=== PATIENT | male | born 1940 | race Caucasian/White ===

== ENCOUNTER 2019-02-07 10:11 | Outpatient (CLI) | payer MEDICARE, SELFPAY ==
--- NOTE | 2019-02-07 10:19 | USCV_ITS ---
Thong Salgado Age: 79 Gender: M : 1940 Exam Date: 02/07/2019 10:38 Ordering Phys: Destin Chung MD Technologist: Soo Serrano Exam Location: [facility] [place]_ Indication: Mild aortic stenosis BP: 132 / 90 HR: 55 Rhythm: Technical Quality: Fair MEASUREMENTS (Male / Female) Normal Values 2D ECHO LV Diastolic Diameter PLAX 5.0 cm 4.2 - 5.9 / 3.9 - 5.3 cm LV Systolic Diameter PLAX 4.6 cm LV Chamber Size 5.6 cm IVS Diastolic Thickness 1.8 cm 0.6 - 1.0 / 0.6 - 0.9 cm IVS Systolic Thickness 1.6 cm LVPW Diastolic Thickness 1.1 cm 0.6 - 1.0 / 0.6 - 0.9 cm LVPW Systolic Thickness 1.7 cm RV Chamber Size 4.2 cm LVOT Diameter 2.0 cm LV Ejection Fraction 2D Teich 18.4 % LV Ejection Fraction MOD 2C 32.1 % LV Ejection Fraction 2C AL 32.5 % LA Diameter 3.9 cm LA Width 4.5 cm LA Height 6.7 cm RA Width 4.3 cm RA Height 5.4 cm Aorta at Sinotubular Diameter 2.5 cm M-MODE LV Diastolic Diameter MM 6.6 cm 4.2 - 5.9 / 3.9 - 5.3 cm LV Systolic Diameter MM 5.2 cm LV Ejection Fraction MM Teich 42.1 % IVS Diastolic Thickness MM 1.4 cm 0.6 - 1.0 / 0.6 - 0.9 cm IVS Systolic Thickness MM 1.7 cm LVPW Diastolic Thickness MM 1.5 cm 0.6 - 1.0 / 0.6 - 0.9 cm LVPW Systolic Thickness MM 1.7 cm Aortic Annulus Diameter 4.2 cm LA Ao Ratio MM 0.9 MV E Point Septal Separation 1.1 cm DOPPLER AV Peak Velocity 334.0 cm/s LVOT Peak Velocity 77.0 cm/s AV Area Cont Eq vti 0.8 cm squared AV Area Cont Eq pk 0.8 cm squared MV Area PHT 3.7 cm squared MV E' Velocity 10.0 cm/s Mitral E to MV E' Ratio 12.8 Mitral E to LV E' Lateral Ratio 9.7 Mitral E to LV E' Septal Ratio 19.2 TR Peak Velocity 236.0 cm/s TR Peak Gradient 22.2 mmHg TR Mean Velocity 235.8 cm/s TR Mean Gradient 23.4 mmHg TR Velocity Time Integral 86.5 cm TV Peak E Velocity 53.0 cm/s Right Atrial Pressure 8.0 mmHg Pulmonary Artery Systolic Pressu 30.3 mmHg PV Peak Velocity 52.0 cm/s RV Acceleration Time 0.1 s RV Ejection Time 0.2 s RV AcT/ET 0.4 FINDINGS Left Ventricle Mildly increased left ventricular cavity size. Severely decreased left ventricular systolic function. Left ventricular ejection fraction is estimated at 35 %. Global left ventricular hypokinesis. Grade II/IV diastolic dysfunction, moderately elevated filling pressures. Right Ventricle The right ventricle is normal in size and function. Right Atrium The right atrium is normal in size. Left Atrium The left atrium is normal in size. Mitral Valve Moderately thickened mitral valve. Moderate mitral annular calcification. No mitral valve stenosis. Moderate mitral valve regurgitation. Aortic Valve Severe aortic valve calcification. Severe aortic valve stenosis, mean gradient 25.2 mmHg, STEPHAN 0.76 cm squared. No aortic valve regurgitation. Possible low pressure Aortic stenosis. Tricuspid Valve Mild tricuspid valve regurgitation. Pulmonic Valve Mild pulmonary valve regurgitation. Pericardium Normal pericardium without effusion. Aorta Normal ascending aorta dimension. CONCLUSIONS 1-Mildly increased left ventricular cavity size. Severely decreased left ventricular systolic function. Left ventricular ejection fraction is estimated at 35 %. Global left ventricular hypokinesis. Grade II/IV diastolic dysfunction, moderately elevated filling pressures. 2-Moderately thickened mitral valve. Moderate mitral annular calcification. No mitral valve stenosis. Moderate mitral valve regurgitation. 3-Severe aortic valve calcification. Severe aortic valve stenosis, mean gradient 25.2 mmHg, STEPHAN 0.76 cm squared. No aortic valve regurgitation. Possible low pressure Aortic stenosis. 4-Mild pulmonary valve regurgitation. 5-There is no pericardial effusion. 6-Pulmonary artery systolic pressure is within normal limits. 7- When compared to the prior echocardiogram dated 09/19/2017 left ventricle ejection fraction has reduced from moderately depressed 46% to severely depressed 35% now. Aortic stenosis has worsened from moderately stenotic with calculated aortic valve area 1.45 cm2 and mean gradient of 14 mmHg to severely stenotic with calculated aortic valve area of 0.76 cm2 and mean gradient of 25 mmHg now. Jakub Olvera MD (Electronically Signed) Final Date: 07 February 2019 13:42 S
== END 2019-02-07 10:12 | disposition home or self-care (01) ==
LOC: RAD 10:14
PROVIDERS: Family Provider Family Medicine; PCP Family Medicine; Visit Provider Family Medicine
DX: I05.9 Rheumatic mitral valve disease, unspecified (principal); I35.0 Nonrheumatic aortic (valve) stenosis; I37.1 Nonrheumatic pulmonary valve insufficiency
CPT/HCPCS: 93306

== ENCOUNTER 2019-02-13 13:45 | Inpatient (IN) | payer MEDICARE, SELFPAY ==
--- NOTE | 2019-02-13 14:18 | ECG_ITS ---
Measurements Intervals [place] Rate: 81 P: 261 MO: 121 QRS: 252 QRSD: 186 T: 82 QT: 426 QTc: 496 ELECTRONIC VENTRICULAR PACEMAKER ABNORMAL RHYTHM ECG No previous ECG available for comparison Electronically Signed On 02-13-2019 15:40:16 [employer] by Gabe Martin M.D. [email or web address]
--- NOTE | 2019-02-13 14:18 | XRR_ITS ---
PROCEDURE INFORMATION: Exam: XR Chest, 2 Views Exam date and time: 02/13/2019 3:01 PM Age: 79 years old Clinical indication: Condition or disease; Other: Chf; Prior surgery; Surgery date: 6+ months; Surgery type: Pacemaker, bypass date not given; Patient HX: Difficulty breathing x 2 months TECHNIQUE: Imaging protocol: XR of the chest Views: 2 views. COMPARISON: [facility] Chest 2 views 12/18/2018 8:11 AM FINDINGS: Lungs: Unremarkable. No consolidation. Pleural space: Left lower lobe small pleural effusion. No pneumothorax. Heart/Mediastinum: Unremarkable. No cardiomegaly. Bones/joints: Metallic sternotomy wires are in place. Cardiac pacemaker left anterior chest. XR/XR chest 2V* [id number] IMPRESSION: No acute findings. Metallic sternotomy wires are in place. Cardiac pacemaker left anterior chest. Small left lower lobe pleural effusion
[2019-02-13 14:35] VITALS: BMI 27.8
[2019-02-13 14:50] LABS: Basophils % 0.8 %; Eosinophils # 0.1 10^3/uL (0.0-0.8); Hematocrit 39.2 % (42.0-52.0); Hemoglobin 12.8 g/dL (11.7-16.6); Lymphocytes % 20.4 %; Mean Corpuscular HGB Conc 32.7 g/dL (30.0-36.0); Mean Corpuscular Hemoglobin 29.6 pg (28.0-34.0); Mean Corpuscular Volume 90.5 fL (80-94); Mean Platelet Volume 9.6 fL (7.4-10.4); Monocytes # 0.5 10^3/uL (0.2-0.9); Neutrophils # 3.4 10^3/uL (1.8-7.7); Neutrophils % 66.6 %; Nucleated Red Blood Cells % 0 %; Platelet Count 275 10^3/cmm (130-400); Red Blood Count 4.33 10^6/uL (4.1-5.3); Red Cell Distribution Width 12.8 % (12.1-15.1); White Blood Count 5.1 10^3/uL (4.0-10.0)
[2019-02-13 14:58] LABS: INR 1.17 (0.8-1.2)
[2019-02-13 14:59] LABS: Partial Thromboplastin Time 32.9 SECONDS (23.9-36.7)
[2019-02-13 15:04] LABS: Chol HDL Ratio 4.23 mg/dL (1.0-5.00); Cholesterol 93 mg/dL (0-200); HDL Cholesterol 22 mg/dL (60-100); LDL Cholesterol Calculated 55 mg/dL (50-129); Triglycerides 78 mg/dL (0-150)
[2019-02-13 15:14] LABS: Alanine Aminotransferase 38 U/L (0-41); Albumin Level 4.2 g/dL (3.5-5.2); Alkaline Phosphatase 87 IU/L (40-130); Anion Gap 15.1 (5-19); Aspartate Amino Transferase 27 U/L (0-40); Blood Urea Nitrogen 12 mg/dL (8-23); Calcium 9.4 mg/Dl (8.8-10.2); Carbon Dioxide 25 mmol/L (22-29); Chloride 105 mmol/L (98-107); Globulin 2.8 g/dL (1.3-4.6); Glucose 140 mg/dL (74-106); NT Pro B Type Natriuretic Pept 2346 pg/mL (0-450); Potassium 4.1 mmol/L (3.5-5.1); Sodium 141 mmol/L (136-145); Total Bilirubin 0.3 mg/dL (0.15-1.2)
[2019-02-13 16:00] VITALS: BP 139/92; RESP 20; TEMP 36.6; O2SAT 98
[2019-02-13] MEDS: docusate sodium 100 mg Capsule PO (17:34)
[2019-02-13] MEDS: FUROsemide 10 mg/mL SDV 4mL 40 MG IVP (17:34)
[2019-02-13] MEDS: enoxaparin 40 mg/0.4 mL Syringe SUBCUT (17:34)
[2019-02-13 17:50] LABS: Add Urine Microscopic? NO
--- NOTE | 2019-02-13 18:13 | P.HP_ITS ---
Providers/Chief Complaint Admitting Physician: Hamzah Montes Primary Care Provider: Destin Chung MD Chief Complaint: CHF History of Present Illness Thong Salgado JR is a 79 year old male with a history of coronary artery disease, coronary artery bypass surgery, aortic valve stenosis and cardiomyopathy, presenting with increasing shortness of breath, chest tightness and leg swelling. [facility] to [facility] today with these complaints. He has been having the symptoms for the last 1 month. His shortness of breath is progressively getting worse. Patient also has been having chest tightness/heaviness with activities. The intensity of the symptoms are moderate to severe. He was finding it difficult to lie flat in the bed. He had to wake up several times in the middle of the night with shortness of breath. He denies any fever or chills. His functional status has significantly deteriorated over the last 1 month. Review of Systems Const: Reports: fatigue; Denies: fever or chills Eyes: Denies: change in vision or blurry vision ENMT: Denies: throat pain or enlarged tonsils Card: Reports: chest pain (Complaints of chest tightness.), edema, swelling of feet/ankles, lightheadedness (Occasional) and shortness of breath when lying down; Denies: palpitations Resp: Reports: shortness of breath; Denies: non-productive cough GI: Denies: abdominal pain, nausea or vomiting : Denies: flank pain or difficulty urinating Musc: Reports: back pain and joint pain; Denies: neck pain Skin/Breast: Denies: rash or itching Neuro: Reports: headache; Denies: numbness in extremities or weakness in extremities Psych: Reports: anxiety; Denies: depression or mood swings Endo: Reports: tired all the time; Denies: excessive urination, excessive thirst or excessive sweating David/Lymph: Denies: easy bruising or easy bleeding All/Imm: Denies: hives, throat swelling, tongue swelling or acute wheezing Medications/Allergies Home Medications Medication Instructions Recorded Confirmed Last Taken Type ascorbic acid (vitamin C) [Vitamin 500 mg PO DAILY 02/13/19 02/13/19 02/13/19 08:00 History C] potassium chloride 10 meq PO BID 02/13/19 02/13/19 02/13/19 08:00 History Allergies Allergy/AdvReac Type Severity Reaction Status Date / Time ciprofloxacin Allergy Unknown unknown Verified 02/13/19 09:54 Penicillins Allergy Unknown unknown Verified 02/13/19 09:53 PFSH Acute PFSH: Statuses (acute, chronic, etc) shown below reflect problem list status as previously entered and may not be historically accurate Medical History (Updated 02/13/19 @ 19:01 by Hamzah Montes MD) Aortic valvar stenosis (Acute) Cardiac arrhythmia (Acute) Cardiomyopathy (Acute) Cataract (Acute) Congestive heart failure (Acute) Coronary arteriosclerosis after coronary artery bypass grafting (Acute) Myocardial perfusion imaging in 2017 revealed 1. Myocardial perfusion imaging revealed small to moderate area of persistent decreased tracer uptake in the basal, mid and apical inferior wall region, with no significant reversibility. The elevated TID ratio may suggest endocardial ischemia. However the positive predictive value this finding is limited. 2. Left ventricular wall motion analysis revealed diffuse hypokinesia of the left ventricle with a dyskinetic apex 3. Left ventricular ejection fraction was estimated to be 32,%. 4. Left ventricular volume was elevated , 112 mL Possibly No significant coronary ischemia, based on the above findings Compared to the previous study on 06/11/2013 there may not be a significant change except for the worsening of the LV systolic function and the elevated TID ratio Essential hypertension (Acute) Mixed hyperlipidemia (Acute) Pacemaker (Acute) Thoracic aneurysm without mention of rupture (Acute) Surgical History H/O foot surgery (Acute) Hx of appendectomy (Acute) Hx of CABG (Acute) Social History Smoking and tobacco status: never smoked Alcohol intake: never Household members: significant other Vitals/I&O/Wt Last Vital Signs Temp 97.9 F 02/13/19 16:00 Resp 20 H 02/13/19 16:00 BP 139/92 02/13/19 16:00 Pulse Ox 98 02/13/19 16:00 02/13/19 02/13/19 02/13/19 06:59 14:59 22:59 Intake Total 480 / 480 Output Total 120 / 120 Balance 360 / 360 Weight last 48 hrs Weight 199 lb 5 oz Weight 199 lb 8 oz Physical Exam Const: COMMON NORMALS: oriented x3 and alert GENERAL APPEARANCE: cooperative, well developed, well hydrated and other (Patient is somewhat tachypneic. Has significant shortness of breath with minimal activities.); not in distress HENMT: MOUTH: lip normal; no other (ulcers or bleeding) TEETH & GINGIVA: no other (bleeding observed and inflammation present) Eye: COMMON NORMALS: conjunctivae normal CONJUNCTIVA: Yes conjunctivae normal SCLERA: sclerae normal Neck/C-Spine: COMMON NORMALS: thyroid normal GENERAL: Yes JVD (JVD 4 cm above the angle of Song.) THYROID: thyroid normal CAROTIDS: Yes normal carotid upstroke (and runoff) Chest: COMMONS NORMALS: inspection of chest normal Resp: COMMON NORMALS: clear to auscultation bilaterally EFFORT & INSPECTION: Yes symmetric chest movement and No uses accessory muscles AUSCULTATION: crackles (Fine crackles bilaterally at the bases) and no wheezes Cardio: COMMON NORMALS: regular rate and regular rhythm PALPATION: no heave, no palpable S3 and no thrill RATE: regular rate RHYTHM: regular rhythm HEART SOUNDS: S1 abnormal (The first heart sound is soft) and murmur (Ejection systolic murmur grade 4/6 in the aortic area with no diastolic murmurs. No pericardial rub) BRUITS: no abdominal aortic bruits PERIPHERAL PULSES: femoral pulses present positive bilateral (Normal), posterior tibial pulses present positive bilateral (Normal) and dorsalis pedis pulses present positive bilateral (Normal) GI: AUSCULTATION: Yes normoactive bowel sounds and No abdominal bruit PALPATION: No tender, No hepatomegaly, No splenomegaly and No mass Back/Pelvis: GENERAL BACK: No swelling and No other (joint deformities) THORACIC SPINE/UPPER BACK: No kyphosis present LUMBAR SPINE/LOWER BACK: No lumbar scoliosis present Extremity: COMMON NORMALS: negative for no clubbing, cyanosis or edema and negative for no pedal edema NARRATIVE EXTREMITY EXAM: Patient has bilateral pitting edema of 1-2+. No evidence of cyanosis. GENERAL: No cyanosis Neuro: COMMON NORMALS: oriented x3; negative for no focal motor deficits SENSORIUM/ORIENTATION: Yes alert MOTOR EXAM: No tremor Psych: MOOD & AFFECT: Yes other (Normal mood and affect) Skin: COMMON NORMALS: skin turgor normal; negative for no petechiae GENERAL SKIN EXAM: turgor normal, skin not dry and no erythema RASHES: rash noted NAILS: normal, no clubbing, not discolored and no other (cyanosis) Data Labs: Other Labs: Laboratory Tests 02/13/19 02/13/19 02/13/19 14:38 14:38 14:38 Hgb 12.8 NT-Pro-B Natriuret Pep 2346 H Total Protein 7.0 Albumin 4.2 Globulin 2.8 Triglycerides 78 Cholesterol 93 LDL Cholesterol, C alc 55 LDL/HDL Ratio 2.50 Cholesterol/HDL Ra janeth 4.23 Imaging^: CXR: My impression: The chest x-ray revealed borderline cardiac silhouette with no lung infiltrate. Pulmonary venous congestion present. Minimal left-sided pleural effusion. EKG^: The EKG revealed 100% V paced rhythm: My Interpretation: The EKG showed 100% V paced rhythm. Further interpretation is not possible. A&P Assessment and plan (1) Congestive heart failure: Patient has clinical features of biventricular failure. His left ventricular ejection fraction was around 35% by echocardiogram. There is a significant drop in the LV ejection fraction from the previous study. He also w as found to have severe aortic valve stenosis, low gradient. The etiology of the drop in the LV ejection fraction is not clear at this time. Possibility of underlying coronary ischemia causing this is a consideration. This needs to be further evaluated. He will be carefully treated with IV diuretics and other symptomatic measures. Status: Acute Code(s): I50.9 - Heart failure, unspecified (2) Coronary arteriosclerosis after coronary artery bypass grafting: Patient is known to have coronary artery disease and had two-vessel coronary artery bypass surgery and 2008. He had a OLSON to the LAD and a venous graft to the obtuse marginal artery. The last coronary angiogram in 2013 revealed patent OLSON to the LAD and venous graft to the obtuse marginal artery. He had high-grade lesion in the distal left main and ostium of the circumflex artery. He had a moderate disease in the mid LAD. The LV ejection fraction was 45% at that time. Because of the significant drop in the LV ejection fraction, he requires a repeat angiogram, to reevaluate the coronary arteries. Patient has been having episodes of chest tightness/heaviness with the shortness of breath. His myocardial perfusion imaging, in 2017 revealed elevated transient ischemic dilatation index. The findings are as follows Status: Acute Code(s): I25.810 - Atherosclerosis of coronary artery bypass graft(s) without angina pectoris (3) Cardiomyopathy: Patient has significant drop in the LV ejection fraction from 45% to 35% by the recent echocardiogram. Possibility of underlying coronary ischemia causing this is a consideration. Patient also has low gradient severe aortic valve stenosis which could be a contributing factor as well He may benefit from a cardiac authorization, to further evaluate the etiology of the LV dysfunction. Status: Acute Qualifiers: Cardiomyopathy type: ischemic Qualified Code(s): I25.5 - Ischemic cardiomyopathy Code(s): I42.9 - Cardiomyopathy, unspecified (4) Aortic valvar stenosis: Patient had an aortic valve area of 0.76 by echocardiogram. He has a low- grade severe aortic valve stenosis. After the coronary angiogram, he may require further evaluation of the valve. 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 His last pacemaker interrogation was unremarkable Status: Acute Code(s): Z95.0 - Presence of cardiac pacemaker (6) Mixed hyperlipidemia: We will continue on the current medications. Status: Acute Code(s): E78.2 - Mixed hyperlipidemia (7) Essential hypertension: Patient is currently normotensive. We will continue on the current medications. Status: Acute Code(s): I10 - Essential (primary) hypertension Attestations Medical Necessity Statement*: Patient requires at least 2 midnight stay for further evaluation and management of his condition Coding Level of Care Code Acute Telecom Sales Consultant for [facility] Fwd Exam Problem Focused Diagnoses Congestive heart failure I50.9 Coronary arteriosclerosis after coronary artery bypass grafting I25.810 Cardiomyopathy I25.5 Cardiomyopathy type: ischemic Aortic valvar stenosis I35.0 Pacemaker Z95.0 Mixed hyperlipidemia E78.2 Essential hypertension I10
[2019-02-13 20:00] VITALS: BP 122/76; RESP 30; TEMP 36.6; O2SAT 92
[2019-02-13 21:15] LABS: Bilirubin Urine Neg (NEGATIVE); Blood Urine Neg (Negative); Glucose Urine UA Norm (Normal); Ketones Urine Negative (Negative); Leukocyte Esterase Urine Negative (Negative); Nitrate Urine Negative (Negative); Protein Urine Neg (Negative); Specific Gravity, Urine 1.005 (1.005-1.030); Urine Appearance Clear (CLEAR); Urine Color Yellow (Yellow); Urobilinogen Urine 1 mg/dL (Negative); pH Urine 7 (5-7)
[2019-02-13] MEDS: sodium chloride 0.9% 1,000 ML 50 ML IV (22:06)
[2019-02-13] MEDS: aspirin 81 mg EC Tablet PO (22:07)
[2019-02-14] VITALS (9 sets, daily range): BP systolic 104–133; BP diastolic 73–96; PULSE 70–84; RESP 18–25; TEMP 36.6–37; O2SAT 93–96
--- NOTE | 2019-02-14 01:07 | PC.NURSE ---
Patient in agreement to switch rooms from room 106 to 111-2, belongings placed in patient's closet in room. Call light within reach. Care continued.
[2019-02-14] MEDS: FUROsemide 10 mg/mL SDV 4mL 40 MG IVP ×3 (02:34→17:41)
[2019-02-14] MEDS: morphine 4 mg/mL SDV 1 mL 2 MG IV (02:35)
[2019-02-14 05:36] LABS: Anion Gap 16.9 (5-19); Blood Urea Nitrogen 13 mg/dL (8-23); Carbon Dioxide 26 mmol/L (22-29); Chloride 102 mmol/L (98-107); Glucose 134 mg/dL (74-106); Potassium 3.9 mmol/L (3.5-5.1); Sodium 141 mmol/L (136-145)
[2019-02-14] MEDS: omega-3 fatty acids 1,000 mg Capsule 1000 MG PO ×2 (08:50→17:41)
[2019-02-14] MEDS: atorvastatin 40 mg Tablet 20 MG PO (08:50)
[2019-02-14] MEDS: metoprolol tartrate 50 mg Tablet PO ×2 (08:50→17:40)
[2019-02-14] MEDS: losartan 50 mg Tablet PO (08:51)
[2019-02-14] MEDS: ascorbic acid 500 mg Tablet PO (08:51)
[2019-02-14] MEDS: docusate sodium 100 mg Capsule PO ×2 (08:51→17:40)
[2019-02-14] MEDS: multivitamin therapeutic Tablet 1 TAB PO (08:51)
[2019-02-14] MEDS: ferrous gluconate 324 mg Tablet PO (08:52)
--- NOTE | 2019-02-14 09:26 | P.PN_ITS ---
Subjective Subjective: Interval history: Patient is feeling much better since the hospital admission. He was able to lie flat in the bed last night. His shortness of breath is significantly improved. He continues to urinate. Denies any leg cramps. No chest pain. No fever or chills. No cough. Vitals/I&O/Wt Last Vital Signs Temp 98.3 F 02/14/19 04:00 Pulse 70 02/14/19 08:59 Resp 19 H 02/14/19 07:44 BP 133/96 02/14/19 08:51 Pulse Ox 96 02/14/19 08:59 02/13/19 02/14/19 02/14/19 22:59 06:59 14:59 Intake Total 480 / 480 100 / 580 240 / 240 Output Total 120 / 120 2650 / 2770 400 / 400 Balance 360 / 360 -2550 / -2190 -160 / -160 Weight last 48 hrs Weight 193 lb 12.8 oz Weight 199 lb 5 oz Weight 199 lb 8 oz Physical Exam Const: COMMON NORMALS: oriented x3 and alert GENERAL APPEARANCE: cooperative, well developed, well hydrated and other (Patient is somewhat tachypneic. Has significant shortness of breath with minimal activities.); not in distress HENMT: MOUTH: lip normal; no other (ulcers or bleeding) TEETH & GINGIVA: no other (bleeding observed and inflammation present) Eye: COMMON NORMALS: conjunctivae normal CONJUNCTIVA: Yes conjunctivae normal SCLERA: sclerae normal Neck/C-Spine: COMMON NORMALS: thyroid normal GENERAL: No JVD (JVD 4 cm above the angle of Song.) THYROID: thyroid normal CAROTIDS: Yes normal carotid upstroke (and runoff) Chest: COMMONS NORMALS: inspection of chest normal Resp: EFFORT & INSPECTION: Yes symmetric chest movement and No uses accessory muscles AUSCULTATION: crackles (Fine crackles bilaterally at the bases) and no wheezes Cardio: COMMON NORMALS: regular rate and regular rhythm; negative for S1 normal heart sound (The first heart sound is soft) PALPATION: no heave, no palpable S3 and no thrill RATE: regular rate RHYTHM: regular rhythm HEART SOUNDS: S1 abnormal (The first heart sound is soft) and murmur (Ejection systolic murmur grade 4/6 in the aortic area with no diastolic murmurs. No pericardial rub) BRUITS: no abdominal aortic bruits PERIPHERAL PULSES: femoral pulses present positive bilateral (Normal), posterior tibial pulses present positive bilateral (Normal) and dorsalis pedis pulses present positive bilateral (Normal) GI: AUSCULTATION: Yes normoactive bowel sounds and No abdominal bruit PALPATION: No tender, No hepatomegaly, No splenomegaly and No mass Back/Pelvis: GENERAL BACK: No swelling and No other (joint deformities) THORACIC SPINE/UPPER BACK: No kyphosis present LUMBAR SPINE/LOWER BACK: No lumbar scoliosis present Extremity: COMMON NORMALS: negative for no clubbing, cyanosis or edema and negative for no pedal edema NARRATIVE EXTREMITY EXAM: Patient has bilateral pitting edema of 1-2+. No evidence of cyanosis. GENERAL: No cyanosis Neuro: COMMON NORMALS: oriented x3; negative for no focal motor deficits SENSORIUM/ORIENTATION: Yes alert MOTOR EXAM: No tremor Psych: MOOD & AFFECT: Yes other (Normal mood and affect) Skin: COMMON NORMALS: skin turgor normal; negative for no petechiae GENERAL SKIN EXAM: turgor normal, skin not dry and no erythema RASHES: rash noted NAILS: normal, no clubbing, not discolored and no other (cyanosis) A&P Assessment and plan (1) Congestive heart failure: Patient has clinical features of biventricular failure. His left ventricular ejection fraction was around 35% by echocardiogram. There is a significant drop in the LV ejection fraction from the previous study. He also was found to have severe aortic valve stenosis, low gradient. The etiology of the drop in the LV ejection fraction is not clear at this time. Possibility of underlying coronary ischemia causing this is a consideration. This needs to be further evaluated. He will be carefully treated with IV diuretics and other symptomatic measures. We will continue IV the Lasix still tomorrow morning. We will do a repeat BMP in the morning as well Status: Acute Code(s): I50.9 - Heart failure, unspecified (2) Coronary arteriosclerosis after coronary artery bypass grafting: Patient is known to have coronary artery disease and had two-vessel coronary artery bypass surgery and 2008. He had a OLSON to the LAD and a venous graft to the obtuse marginal artery. The last coronary angiogram in 2013 revealed patent OLSON to the LAD and venous graft to the obtuse marginal artery. He had high-grade lesion in the distal left main and ostium of the circumflex artery. He had a moderate disease in the mid LAD. The LV ejection fraction was 45% at that time. Because of the significant drop in the LV ejection fraction, he requires a repeat angiogram, to reevaluate the coronary arteries. Patient has been having episodes of chest tightness/heaviness with the shortness of breath. His myocardial perfusion imaging, in 2017 revealed elevated transient ischemic dilatation index. The findings are as follows Patient is scheduled for a cardiac arrest for tomorrow afternoon. Based on the angiogram findings, further management decisions will be made The risk of bleeding, hematoma, vascular injury, myocardial infarction, CVA, renal failure and other concomitant complications were explained in detail. Patient understood this well and consented to proceed Status: Acute Code(s): I25.810 - Atherosclerosis of coronary artery bypass graft(s) without angina pectoris (3) Cardiomyopathy: Patient has significant drop in the LV ejection fraction from 45% to 35% by the recent echocardiogram. Possibility of underlying coronary ischemia causing this is a consideration. Patient also has low gradient severe aortic valve stenosis which could be a contributing factor as well He may benefit from a cardiac catheterization, to further evaluate the etiology of the LV dysfunction. As above Status: Acute Qualifiers: Cardiomyopathy type: ischemic Qualified Code(s): I25.5 - Ischemic card iomyopathy Code(s): I42.9 - Cardiomyopathy, unspecified (4) Aortic valvar stenosis: Patient had an aortic valve area of 0.76 by echocardiogram. He has a low- grade severe aortic valve stenosis. After the coronary angiogram, he may require further evaluation of the valve. 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 His last pacemaker interrogation was unremarkable Status: Acute Code(s): Z95.0 - Presence of cardiac pacemaker (6) Mixed hyperlipidemia: We will continue on the current medications. Status: Acute Code(s): E78.2 - Mixed hyperlipidemia (7) Essential hypertension: Patient is currently normotensive. We will continue on the current medications. Status: Acute Code(s): I10 - Essential (primary) hypertension Attestations Medical Necessity Statement*: Patient requires continued hospital stay, for further evaluation and close monitoring. Coding Level of Care Code Acute [facility] for [facility] Fwd Exam Problem Focused Diagnoses Congestive heart failure I50.9 Coronary arteriosclerosis after coronary artery bypass grafting I25.810 Cardiomyopathy I25.5 Cardiomyopathy type: ischemic Aortic valvar stenosis I35.0 Pacemaker Z95.0 Mixed hyperlipidemia E78.2 Essential hypertension I10
[2019-02-14 11:57] LABS: Glucose Point of Care 120 mg/dL (70-110)
[2019-02-14] MEDS: enoxaparin 40 mg/0.4 mL Syringe SUBCUT (15:00)
[2019-02-14 17:13] LABS: Glucose Point of Care 106 mg/dL (70-110)
[2019-02-14 21:13] LABS: Glucose Point of Care 138 mg/dL (70-110)
[2019-02-14] MEDS: aspirin 81 mg EC Tablet PO (21:15)
--- NOTE | 2019-02-14 23:23 | PC.NURSE ---
Patient very anxious/nervous about angiogram that is scheduled for tomorrow. After listening to his concerns, patient states, you know what.....I'm not going to worry about it until we are done tomorrow and find out what they say. Will monitor.
[2019-02-15] VITALS (11 sets, daily range): BP systolic 101–125; BP diastolic 65–86; PULSE 80–83; RESP 17–27; TEMP 36.5–36.9; O2SAT 93–98
--- NOTE | 2019-02-15 | XACV_ITS ---
Exam Room: [facility] Ht: 180 cm Wt: 90 kg BSA: 2.14 m2 Gender: Male : 1940 Any Known Allergies: Other Exam Priority: Routine Procedure(s): Procedure Description: Diagnostic procedure Procedure Description: Left ventriculography Procedure Description: Venous Graft Catheterization Procedure Description: OLSON Graft Catheterization Procedure Description: Coronary Angiography Diagnostic Cath Status: Elective Diagnostic Findings No significant disease noted in the Left Main, LAD, Circumflex, or RCA coronary arteries. Coronary angiography shows right dominance. The left main is a medium caliber vessel which was found to have a high-grade 90% stenosis at the distal segment, involving the ostium of the left artery descending artery and left circumflex artery. The left and descending artery is a medium caliber vessel which was found to have around 50% lesion in the mid segment. The first diagonal branch artery was found to have 60 to 70% ostial lesion. The mid segment of the artery was found to have mild diffuse disease. Competitive blood flow was noted in the distal LAD. The second diagonal branch was found to have mild diffuse disease. The first septal shape carver is a medium caliber vessel with no significant stenotic lesions. The left circumflex artery is a medium caliber vessel which gives off a high obtuse marginal branch. The ostium of the circumflex artery was found to have high-grade stenosis. At the takeoff of the first obtuse marginal artery, there is high-grade lesion in the circumflex artery, involving the ostium of the first obtuse marginal branch. The second obtuse marginal branch is relatively small caliber vessel with mild diffuse disease. The distal circumflex artery gives off a large recurrent atrial branch with no significant stenotic lesions. Competitive blood flow was noted in the high obtuse marginal branch. The right coronary artery is a relatively large caliber vessel which was found to be ectatic in the proximal and mid segment. There is an eccentric narrowing of around 50 to 60% in the proximal artery with haziness suggestive of possible thrombus. Diffuse calcification was noted in this segment of the artery. The PDA and the PLV branches are found to have mild diffuse disease. The saphenous venous graft to the obtuse marginal branch(high OM) was found to be widely patent. Just proximal to the distal anastomosis, there was a 70% lesion in the first obtuse marginal artery. No significant stenotic lesions were noted distal to the anastomosis. PCI Status: Elective Conclusions This is a 79-year-old white male with history of coronary disease, status post two-vessel coronary bypass surgery in 2008, presented with progressive shortness of breath and weakness. He was found to have features of congestive heart failure and possibly severe, low gradient aortic valve stenosis. His LV ejection fraction has decreased from the previous study from 45 to 35%. In view of the patient's the new onset of heart failure, significant decrease in the LV ejection fraction and the development of severe aortic valve stenosis, for further evaluation of his coronary status, a cardiac catheterization was recommended. Patient underwent left heart catheterization with a left and right coronary angiogram and graft angiogram today. He was found to have severe distal left main disease involving the ostium of the left and descending artery and circumflex artery. The OLSON to the LAD was found to be patent. The saphenous venous graft to the obtuse marginal artery also was found to be patent. Proximal to the distal anastomosis of the obtuse marginal graft, there was a high-grade lesion, possibly causing compromised blood flow in the circumflex artery territory. Moderate eccentric disease in the right coronary artery with a possible thrombus moderate diffuse calcification also was noted in the right coronary artery. Mild to moderate diffuse disease was noted in the other vessels. The LVEDP was 7 mmHg and the mean gradient across the aortic valve was found to be 27 millimeters of mercury. Recommendations We will optimize the medical treatment. We also may consider a myocardial perfusion imaging, to evaluate for the functional significance of the circumflex artery and the right coronary artery lesions. After reviewing the results of these tests, further recommendations will be made. The angiogram findings were reviewed and discussed with Dr. Olvera who agreed with this plan. Diagnostic RX Recommendation: medical therapy and/or counseling LV EDP: 7 mmHg Left Ventriculography Findings: The aortic valve was crossed with a pigtail catheter. The mean gradient across aortic valve was 27 mmHg-using the single lumen catheter . THE LVEDP was 10 mmHg. LV gram was not performed because of the concern about the dye overload. Pressures Phase:Rest AO : 66 mmHg / 47 mmHg ( 56 mmHg ) @ 8:12:00 AM 95 mmHg / 39 mmHg ( 65 mmHg ) @ 8:31:00 AM 95 mmHg / 39 mmHg ( 63 mmHg ) @ 8:31:00 AM LV : 124 mmHg / -4 mmHg / @ 8:30:00 AM 122 mmHg / -4 mmHg / @ 8:31:00 AM Valves Phase:DefaultPhase AV : 26.0 mmHg @ 2:50:56 PM AV Mean Gradient: 27.0 mmHg @ 2:50:56 PM Clinical Evaluation EBL: 5mL-10mL Procedural Details Due to computer glitch, some notes will be out of order. Correct Patient: Yes; Correct Procedure: Yes; Correct Site: Yes; Correct Patient Position: Yes; Correct Supplies: Yes; Dried Flammable Prep: Yes; Blood Products Available: No;. Dr. Olvera notified at 1420. 250cc bolus stopped at 125cc's and fluids now running at 75ml/hr. Procedure Consent Obtained. Pre-Procedure Time Out. Identified patient by full name and date of as verbalized by the patient/guarantor. Does the consent match the physician's order: Yes. Accurate & Complete Informed Consent: Yes. Inpatient/Outpatient History & Physical on Chart: Yes. If H&P is completed, is and addenduem needed: No; If yes, is the addendum complete: N/A. Visualize and Verify Site with Patient/Guarantor: N/A. Relevant Radiology Images available: Yes. Pre-op teaching completed and patient verbalized understanding. The risks, benefits, and alternatives of sedation and/or procedure were discussed by physician. The patient agrees to continue. Procedure started. Correct patient, site and procedure confirmed by cath team. Current diagnosis: Chest Pain. PERRLA. Strong, equal hand real estate assistant bilaterally. Lungs clear x 5 lobes. IV Site on Arrival: 18 gauge in the left hand. IV Fluids: 0.9% NaCl at KVO. 200 mL infused prior to labeling strategist. Pre Procedural Pulses: bilateral dorsalis pedis was 3+. Pre Procedural Pulses: bilateral posterior tibial was 3+. Pre Procedural Pulses: bilateral radial was 3+. Oxygen started at 2liters/min via nasal canula. bilateral groins was prepped with chloroprep then draped in the usual sterile fashion. Physician notified. Baseline sample Acquired. HR: 80 BPM. Physician arrived. Equipment: 6F - Femoral. ACIST Manifold Kit Model BT 2000. Cardiac Cath Pack. Heparinized Saline (2 units/mL), 1000 mL bag. Kit, Micropuncture. Physician scrubbed in. Immediate Pre-Procedure Time Out. Lidocaine 1% infiltrated to the right groin. Arterial access obtained with micropuncture set. A 5 wallisian JL4 catheter in over wire. Catheter out. A 5 wallisian JL5 catheter in over wire. Multiple views taken of left coronary artery. Catheter out. A 5 wallisian JR4 catheter in over wire. Multiple views taken of right coronary artery. SVG's to OM visualized and patent. Catheter out. OLSON to LAD visualized. Catheter out. A 5 wallisian LCB catheter in over wire. SVG's to OM visualized and patent. Catheter out. A 5 wallisian Angled Pig catheter in over wire. EDP Sample taken: LV 124/-5,7; HR: 80 BPM; SpO2: 95%. Pullback taken: LV 122/-5,6; AO 95/39(65); Mean: 27mmHg, Peak to Peak: 26mmHg, SEP: 22sec/min; HR: 80 BPM; SpO2: 94%. Catheter out. Dr. Olvera arrived to view films at 1430. Side port of sheath attached to Normal Saline flush at KVO to maintain patency. Sheath(s) removed and manual pressure held until hemostasis was achieved. Sterile 4x4 and Op-site applied to the puncture site. No oozing or hematoma noted. Post sheath removal instructions were given and the patient verbalized understanding. Sheath(s) sutured into position with 2-0 silk and sterile 4x4's and Op-site applied over the site. No oozing or signs and symptoms of hematoma noted. Post Procedure: Pulses reassessed and unchanged. PERRLA. Strong, equal hand real estate assistant bilaterally. No VTE prophylaxis required. Total IV fluids: 125 mL. Post-op diagnosis: Chest Pain. Complications: None. Estimated blood loss: 5mL-10mL. Vital chart was stopped. Procedure completed. Patient transferred by bed to 1st floor. Medication's Wasted: Other = Versed 1 mg. Medication's Wasted: Other = Fentanyl 50 mg. Site: Right Femoral artery Sheath Size: 5 Fr Hemostasis Success: Unsuccessful Procedure Medications Start: 1:53 PM Stop: 1:53 PM Medication: Versed Amount: 1 mg Route: I.V. Start: 1:53 PM Stop: 1:53 PM Medication: Fentanyl Amount: 50 mcg Route: I.V. Start: 2:11 PM Stop: 2:11 PM Medication: Heparin Amount: 1500 units Route: I.V. Start: 2:13 PM Stop: 2:13 PM Medication: 0.9% Saline Amount: 250 ml Route: I.V. bolus I, the attending physician, have reviewed and verified all procedure medications. Yes, all medications given per verbal order History/Risk Factors Hypertension: Yes Dyslipidemia: No Peripheral Arterial Disease (PAD): No Myocardial Infarction (OR): No Obesity: No Renal Disease: No Prior Interventions PCI: No CABG: Yes Valve Surgery: No Report Signatures Finalized by:Dr Hamzah Montes MD [facility] on 02/15/2019 5:09:21 PM
[2019-02-15] MEDS: FUROsemide 10 mg/mL SDV 4mL 40 MG IVP (02:56)
[2019-02-15 03:30] LABS: Basophils # 0.1 10^3/uL (0.0-0.1); Basophils % 0.9 %; Eosinophils # 0.2 10^3/uL (0.0-0.8); Eosinophils % 3.7 %; Hematocrit 41.3 % (42.0-52.0); Hemoglobin 13.4 g/dL (11.7-16.6); Lymphocytes # 1.6 10^3/uL (0.8-4.8); Lymphocytes % 28.7 %; Mean Corpuscular HGB Conc 32.4 g/dL (30.0-36.0); Mean Corpuscular Hemoglobin 28.9 pg (28.0-34.0); Monocytes # 0.7 10^3/uL (0.2-0.9); Monocytes % 12.2 %; Neutrophils # 3.1 10^3/uL (1.8-7.7); Neutrophils % 54.5 %; Nucleated Red Blood Cells % 0 %; Platelet Count 279 10^3/cmm (130-400); Red Blood Count 4.64 10^6/uL (4.1-5.3); Red Cell Distribution Width 12.7 % (12.1-15.1); White Blood Count 5.7 10^3/uL (4.0-10.0)
[2019-02-15 04:08] LABS: Anion Gap 15.8 (5-19); Blood Urea Nitrogen 21 mg/dL (8-23); Calcium 9.6 mg/Dl (8.8-10.2); Carbon Dioxide 25 mmol/L (22-29); Chloride 100 mmol/L (98-107); Glucose 115 mg/dL (74-106); Potassium 3.8 mmol/L (3.5-5.1); Sodium 137 mmol/L (136-145)
--- NOTE | 2019-02-15 05:39 | PC.NURSE ---
Complete linen change done along with floor mopped secondary to patient knocking over urinal. It was pretty full. Denies complaints at present. Will monitor.
[2019-02-15 07:35] LABS: Glucose Point of Care 106 mg/dL (70-110)
--- NOTE | 2019-02-15 08:40 | P.PN_ITS ---
Subjective Subjective: Interval history: Patient continues to feel better. Denies any chest pain or unusual shortness of breath. No fever, chills or cough. Vital signs remained stable. No new arrhythmias on the monitor. Vitals/I&O/Wt Last Vital Signs Temp 98.4 F 02/15/19 07:32 Pulse 80 02/15/19 07:32 Resp 17 02/15/19 07:32 BP 111/65 02/15/19 07:32 Pulse Ox 94 02/15/19 07:32 02/14/19 02/15/19 02/15/19 22:59 06:59 14:59 Intake Total 980 / 1460 Output Total 1125 / 1525 Balance 980 / 1060 -1125 / -65 Weight last 48 hrs Weight 187 lb 8 oz Weight 193 lb 12.8 oz Weight 199 lb 5 oz Weight 199 lb 8 oz Physical Exam Const: COMMON NORMALS: oriented x3 and alert GENERAL APPEARANCE: cooperative, well developed, well hydrated and other (Patient is somewhat tachypneic. Has significant shortness of breath with minimal activities.); not in distress HENMT: MOUTH: lip normal; no other (ulcers or bleeding) TEETH & GINGIVA: no other (bleeding observed and inflammation present) Eye: COMMON NORMALS: conjunctivae normal CONJUNCTIVA: Yes conjunctivae normal SCLERA: sclerae normal Neck/C-Spine: COMMON NORMALS: thyroid normal THYROID: thyroid normal CAROTIDS: Yes normal carotid upstroke (and runoff) Chest: COMMONS NORMALS: inspection of chest normal Resp: EFFORT & INSPECTION: Yes symmetric chest movement and No uses accessory muscles AUSCULTATION: no wheezes PERCUSSION: other (Breath sounds noted bilaterally with no rales or rhonchi. No evidence of consolidation. Soft tissue is) Cardio: COMMON NORMALS: regular rate and regular rhythm; negative for S1 normal heart sound (The first heart sound is soft) PALPATION: no heave, no palpable S3 and no thrill RATE: regular rate RHYTHM: regular rhythm HEART SOUNDS: S1 abnormal (The first heart sound is soft) and murmur (Ejection systolic murmur grade 4/6 in the aortic area with no diastolic murmurs. No pericardial rub) BRUITS: no abdominal aortic bruits PERIPHERAL PULSES: femoral pulses present positive bilateral (Normal), posterior tibial pulses present positive bilateral (Normal) and dorsalis pedis pulses present positive bilateral (Normal) GI: AUSCULTATION: Yes normoactive bowel sounds and No abdominal bruit PALPATION: No tender, No hepatomegaly, No splenomegaly and No mass Back/Pelvis: GENERAL BACK: No swelling and No other (joint deformities) THORACIC SPINE/UPPER BACK: No kyphosis present LUMBAR SPINE/LOWER BACK: No lumbar scoliosis present Extremity: COMMON NORMALS: negative for no clubbing, cyanosis or edema and negative for no pedal edema NARRATIVE EXTREMITY EXAM: Patient has bilateral pitting edema of 1-2+. No evidence of cyanosis. GENERAL: No cyanosis Neuro: COMMON NORMALS: oriented x3; negative for no focal motor deficits SENSORIUM/ORIENTATION: Yes alert MOTOR EXAM: No tremor Psych: MOOD & AFFECT: Yes other (Normal mood and affect) Skin: COMMON NORMALS: skin turgor normal; negative for no petechiae GENERAL SKIN EXAM: turgor normal, skin not dry and no erythema RASHES: rash noted NAILS: normal, no clubbing, not discolored and no other (cyanosis) A&P Assessment and plan (1) Congestive heart failure: Patient has clinical features of biventricular failure. His left ventricular ejection fraction was around 35% by echocardiogram. There is a significant drop in the LV ejection fraction from the previous study. He also was found to have severe aortic valve stenosis, low gradient. The etiology of the drop in the LV ejection fraction is not clear at this time. Possibility of underlying coronary ischemia causing this is a consideration. This needs to be further evaluated. He will be carefully treated with IV diuretics and other symptomatic measures. I may change IV Lasix to p.o. today. Continue on no medications for symptoms. Status: Acute Code(s): I50.9 - Heart failure, unspecified (2) Coronary arteriosclerosis after coronary artery bypass grafting: Patient is known to have coronary artery disease and had two-vessel coronary artery bypass surgery and 2008. He had a OLSON to the LAD and a venous graft to the obtuse marginal artery. The last coronary angiogram in 2013 revealed patent OLSON to the LAD and venous graft to the obtuse marginal artery. He had high-grade lesion in the distal left main and ostium of the circumflex artery. He had a moderate disease in the mid LAD. The LV ejection fraction was 45% at that time. Because of the significant drop in the LV ejection fraction, he requires a repeat angiogram, to reevaluate the coronary arteries. Patient has been having episodes of chest tightness/heaviness with the shortness of breath. His myocardial perfusion imaging, in 2017 revealed elevated transient ischemic dilatation index. The findings are as follows Patient is scheduled for a cardiac catheterization today afternoon. Based on the angiogram findings, further management decisions will be made The risk of bleeding, hematoma, vascular injury, myocardial infarction, CVA, renal failure and other concomitant complications were explained in detail. Patient understood this well and consented to proceed Status: Acute Code(s): I25.810 - Atherosclerosis of coronary artery bypass graft(s) without angina pectoris (3) Cardiomyopathy: Patient has significant drop in the LV ejection fraction from 45% to 35% by the recent echocardiogram. Possibility of underlying coronary ischemia causing this is a consideration. Patient also has low gradient severe aortic valve stenosis which could be a contributing factor as well Based on the angiogram findings, further management decisions will be made. Status: Acute Qualifiers: Cardiomyopathy type: ischemic Qualified Code(s): I25.5 - Ischemic cardiomyopathy Code(s): I42.9 - Cardiomyopathy, unspecified (4) Aortic valvar stenosis: Patient had an aortic valve area of 0.76 by echocardiogram. He has a low- grade severe aortic valve stenosis. After the coronary angiogram, he may require further evaluation of the valve. 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 His last pacemaker interrogation was unremarkable Status: Acute Code(s): Z95.0 - Presence of cardiac pacemaker (6) Mixed hyperlipidemia: We will continue on the current medications. Status: Acute Code(s): E78.2 - Mixed hyperlipidemia (7) Essential hypertension: Patient is currently normotensive. We will continue on the current medications. Status: Acute Code(s): I10 - Essential (primary) hypertension Attestations Medical Necessity Statement*: Patient requires continued hospital stay for close monitoring and further management. Coding Level of Care Code Acute Pain Management Nurse Practitioner for Cristineg Fwd Exam Problem Focused Medical Decision Making Moderate Complexity Diagnoses Congestive heart failure I50.9 Coronary arteriosclerosis after coronary artery bypass grafting I25.810 Cardiomyopathy I25.5 Cardiomyopathy type: ischemic Aortic valvar stenosis I35.0 Pacemaker Z95.0 Mixed hyperlipidemia E78.2 Essential hypertension I10
[2019-02-15] MEDS: atorvastatin 40 mg Tablet 20 MG PO (09:15)
[2019-02-15] MEDS: omega-3 fatty acids 1,000 mg Capsule 1000 MG PO ×2 (09:15→18:03)
[2019-02-15] MEDS: losartan 50 mg Tablet PO (09:17)
[2019-02-15] MEDS: metoprolol tartrate 50 mg Tablet PO ×2 (09:17→18:03)
[2019-02-15] MEDS: multivitamin therapeutic Tablet 1 TAB PO (09:17)
[2019-02-15] MEDS: docusate sodium 100 mg Capsule PO ×2 (09:17→18:02)
[2019-02-15] MEDS: ferrous gluconate 324 mg Tablet PO (09:18)
[2019-02-15] MEDS: ascorbic acid 500 mg Tablet PO (09:18)
[2019-02-15] MEDS: sodium chloride 0.9% 1,000 ML 50 ML IV (11:11)
[2019-02-15] MEDS: diphenhydrAMINE 50 mg Capsule PO (11:17)
[2019-02-15 11:26] LABS: Glucose Point of Care 103 mg/dL (70-110)
--- NOTE | 2019-02-15 16:19 | PC.CHAP ---
Pastoral Care Encounter/Spiritual Assessment Type of Contact [] Declined sanitary napkin machine tender visit [] Patient/Family/Request visit [] Outpatient visit [] Follow-up visit [] Physician referral [] Code/Alert [x] Routine visit [] Staff referral [] Actively dying [] Patient sleeping [] Family support [] [] Out of room [] Palliative care [] [x] Receiving care in room [] Pre-surgical visit [] Trauma [] Long length of stay [x] ICU visit [] Other: Relational/Emotional Strength [] Patient feels connected with others/family/visitors/staff [] Distress [] Loneliness/isolation [] Abandonment Spirituality of Patient [] Person of Mandy [] Attends Pentecostal of their Mandy [] Believes in Prayer [] Reads Bible or Mosque materials [] There are Spiritual issues to be addressed Geography Professor Interventions [] Prayer [] Active listening [] Non-anxious presence [] Spiritual/emotional support [] Crisis/trauma care [] Spiritual counseling [] Bereavement support [] Provided bereavement packet [] Provided Bible/devotional materials [] Provided toy/stuffed animal, coloring book to patient or family member [] Completed spiritual assessment [] Provided Communion [] Anointing/[place] [] Salvation [] Other: Impact on Illness or Injury [] Angry [] Fearful [] Anxious [] Often cries [] Exhaustion [] Unable to work [] Unable to attend rastafari [] Unable to walk/stand [] Unable to read [] Unable to drive [] Unable to eat/drink [] Unable to sleep [] Unable to be with family [] Other: Summary patient was busy with staff. Geography Professor will revisit Time spent with patient
[2019-02-15 16:20] LABS: Glucose Point of Care 87 mg/dL (70-110)
--- NOTE | 2019-02-15 19:08 | PC.NURSE ---
return from cardiac labor relations officer at 1503.pt was alert and awake.denied pain.v-paced on monitor.right femoral arterial sheath intact to pressurized system.right groin had drsg dry and intact.no hematoma noted.dopplerable right dp and pt pulses noted.femoral arterial sheath pulled at 1630.manual pressure held x 20 min.no hematoma formation noted.vss through-out procedure.site dressed with 2x2 gauze and secured with biocclusive drsg.pt tolerated procedure well.instructed in activity restrictions s/p femoral artery sheath pull...and instructed to notify staff for any bleeding,pain,numbness..or for any concerns at all.pt verb understanding of instructions.
--- NOTE | 2019-02-15 19:47 | PC.RESP ---
pt stated that he did not want to wear cpap tonight. stated that he wanted to see how he did without it
[2019-02-15 21:35] LABS: Glucose Point of Care 178 mg/dL (70-110)
--- NOTE | 2019-02-15 21:56 | PC.NURSE ---
Looked at the site and dressing was c/d/i no hematoma, no tenderness.
[2019-02-15] MEDS: aspirin 81 mg EC Tablet PO (22:23)
--- NOTE | 2019-02-15 23:20 | PC.NURSE ---
Patients 6 hours was up, last vitals done, will post shortly, site looked good, no hematoma, site soft, dressing c/d/i. patient opted not to get up but to roll over and sleep.
[2019-02-16] VITALS: BP 92/55; PULSE 83; RESP 29; TEMP 37.1; O2SAT 94
[2019-02-16 04:00] VITALS: BP 114/80; PULSE 84; RESP 24; TEMP 36.6; O2SAT 94
--- NOTE | 2019-02-16 06:00 | PC.NURSE ---
PATIENT CALLED THIS NURSE IN TO HIS ROOM ABOUT 5:15 AM AND FOUND PATIENT, BED, AND FLOOR COVERED IN BLOOD AND PATIENT DRIPPING FROM WHERE HIS IV GOT PULLED OUT WHILE HE WAS STANDING AND TURNING TO GO TO THE BATHROOM. WE GOT HIM AND THE ROOM CLEANED UP AND PUT A PRESSURE DRESSING OVER THE SITE TO STOP THE BLEEDING. PATIENT WAS OK. ONCE CLEANED UP HE WENT FOR A WALK UP AND DOWN THE [place], HIS FIRST WALK SINCE CATH REMOVAL. HE FELT GOOD NO PAIN, NO BLEEDING OR HEMATOMA AND HE SAID ITS THE FIRST TIME HES WALKED THAT HE WASNT SHORT OF BREATH IN A LONG WHILE.
[2019-02-16 07:53] VITALS: BP 117/77; PULSE 82; RESP 33; TEMP 36.8; O2SAT 99
[2019-02-16 08:00] LABS: Glucose Point of Care 137 mg/dL (70-110)
[2019-02-16 09:05] LABS: Anion Gap 15.1 (5-19); Blood Urea Nitrogen 18 mg/dL (8-23); Calcium 9.6 mg/Dl (8.8-10.2); Carbon Dioxide 24 mmol/L (22-29); Chloride 101 mmol/L (98-107); Glucose 132 mg/dL (74-106); Potassium 4.1 mmol/L (3.5-5.1); Sodium 136 mmol/L (136-145)
[2019-02-16 09:07] VITALS: BP 117/77
[2019-02-16] MEDS: omega-3 fatty acids 1,000 mg Capsule 1000 MG PO (09:07)
[2019-02-16] MEDS: losartan 50 mg Tablet PO (09:07)
[2019-02-16] MEDS: atorvastatin 40 mg Tablet 20 MG PO (09:07)
[2019-02-16] MEDS: ferrous gluconate 324 mg Tablet PO (09:08)
[2019-02-16] MEDS: multivitamin therapeutic Tablet 1 TAB PO (09:08)
[2019-02-16] MEDS: docusate sodium 100 mg Capsule PO (09:08)
[2019-02-16] MEDS: metoprolol tartrate 50 mg Tablet PO (09:09)
[2019-02-16] MEDS: ascorbic acid 500 mg Tablet PO (09:15)
--- NOTE | 2019-02-16 09:45 | P.DS_ITS ---
Discharge Providers Date of Admission: 02/13/19 13:45 Date of Discharge: 02/16/19 Attending Provider at Admission: Hamzah Montes Attending Provider at Discharge: Hamzah Montes Primary Care Provider: Destin Chung MD Diagnoses at Discharge Discharge Diagnosis (1) Congestive heart failure: Status: Acute Problem details: Patient presents with a progressive shortness of breath. He had clinical features of congestive heart failure. He was treated with diuretics and other symptomatic measures. He symptomatically improved. (2) Coronary arteriosclerosis after coronary artery bypass grafting: Status: Acute Problem details: Myocardial perfusion imaging in 2017 revealed 1. Myocardial perfusion imaging revealed small to moderate area of persistent decreased tracer uptake in the basal, mid and apical inferior wall region, with no significant reversibility. The elevated TID ratio may suggest endocardial ischemia. However the positive predictive value this finding is limited. 2. Left ventricular wall motion analysis revealed diffuse hypokinesia of the left ventricle with a dyskinetic apex 3. Left ventricular ejection fraction was estimated to be 32,%. 4. Left ventricular volume was elevated , 112 mL Possibly No significant coronary ischemia, based on the above findings Compared to the previous study on 06/11/2013 there may not be a significant change except for the worsening of the LV systolic function and the elevated TID ratio (3) Cardiomyopathy: Status: Acute Problem details: Patient is a low ejection fraction has decreased from 45% to 35% by echocardiogram. Qualifiers: Cardiomyopathy type: ischemic Qualified Code(s): I25.5 - Ischemic cardiomyopathy (4) Aortic valvar stenosis: Status: Acute Problem details: Patient may have a low gradient severe aortic valve stenosis. Since the symptoms significantly improved, we may consider some non-VAC studies to further evaluate the degree of aortic valve stenosis. (5) Pacemaker: Status: Acute Problem details: The pacemaker function was found to be appropriate. (6) Mixed hyperlipidemia: Status: Acute Problem details: Patient was continued on the current medications. (7) Essential hypertension: Status: Acute Problem details: The blood pressure has been staying in the normal range in the hospital. It was decided to continue on the current medications. Reason for Visit Reason for Visit: Reason For Visit: CHF Hospital Course Hospital Course: Patient was treated with IV diuretics, oxygen by nasal cannula and other symptomatic measures. He had significant improvement of the symptoms. He was taken to the cardiac Property Insurance Agent on 02/15/2019. The coronary angiogram revealed a patent OLSON to the LAD and venous graft to the obtuse mere inal artery. He had high-grade lesions in the ostium of the LAD, circumflex and the distal left main. There was a moderate disease in the proximal RCA. There was a high-grade stenosis proximal to the distal anastomosis of the OM graft. In order to understand the functional significance of these lesions, it was thought to be appropriate to do a myocardial perfusion imaging to decide on further intervention. Since the patient is remaining stable, it was decided to discharge him home and to do further evaluations as an outpatient. The patient is being discharged home today in stable condition. Discharge Summary: Please see the note above Physical Exam Const: COMMON NORMALS: oriented x3 and alert GENERAL APPEARANCE: cooperative, well developed, well hydrated and other (Patient is somewhat tachypneic. Has significant shortness of breath with minimal activities.); not in distress HENMT: MOUTH: lip normal; no other (ulcers or bleeding) TEETH & GINGIVA: no other (bleeding observed and inflammation present) Eye: COMMON NORMALS: conjunctivae normal CONJUNCTIVA: Yes conjunctivae normal SCLERA: sclerae normal Neck/C-Spine: COMMON NORMALS: thyroid normal GENERAL: No JVD and Yes other (No JVD) THYROID: thyroid normal CAROTIDS: Yes normal carotid upstroke (and runoff) Chest: COMMONS NORMALS: inspection of chest normal Resp: EFFORT & INSPECTION: Yes symmetric chest movement and No uses accessory muscles AUSCULTATION: no wheezes PERCUSSION: other (Breath sounds noted bilaterally with no rales or rhonchi. No evidence of consolidation. Soft tissue is) Cardio: COMMON NORMALS: regular rate and regular rhythm; negative for S1 normal heart sound (The first heart sound is soft) PALPATION: no heave, no palpable S3 and no thrill RATE: regular rate RHYTHM: regular rhythm HEART SOUNDS: S1 abnormal (The first heart sound is soft) and murmur (Ejection systolic murmur grade 4/6 in the aortic area with no diastolic murmurs . No pericardial rub) BRUITS: no abdominal aortic bruits PERIPHERAL PULSES: femoral pulses present positive bilateral (Normal), posterior tibial pulses present positive bilateral (Normal) and dorsalis pedis pulses present positive bilateral (Normal) GI: AUSCULTATION: Yes normoactive bowel sounds and No abdominal bruit PALPATION: No tender, No hepatomegaly, No splenomegaly and No mass Back/Pelvis: GENERAL BACK: No swelling and No other (joint deformities) THORACIC SPINE/UPPER BACK: No kyphosis present LUMBAR SPINE/LOWER BACK: No lumbar scoliosis present Extremity: COMMON NORMALS: negative for no clubbing, cyanosis or edema and negative for no pedal edema NARRATIVE EXTREMITY EXAM: Patient has bilateral pitting edema of 1-2+. No evidence of cyanosis. GENERAL: No cyanosis Neuro: COMMON NORMALS: oriented x3; negative for no focal motor deficits SENSORIUM/ORIENTATION: Yes alert MOTOR EXAM: No tremor Psych: MOOD & AFFECT: Yes other (Normal mood and affect) Skin: COMMON NORMALS: skin turgor normal; negative for no petechiae GENERAL SKIN EXAM: turgor normal, skin not dry and no erythema RASHES: rash noted NAILS: normal, no clubbing, not discolored and no other (cyanosis) Discharge Data Data Completed and Pending: Completed Studies During Hospitalization Category Date Time Status XR chest 2V* 7104 [id number] Urgent Exams 02/13/19 14:18 Completed Pending at discharge Category Date Time Status OXYGEN THERAPY TEACHER request for service Routin e Exams 02/15/19 Taken Labs from last 24 hours 02/16/19 02/16/19 02/15/19 08:15 07:48 21:30 Sodium 136 Potassium 4.1 Chloride 101 Carbon Dioxide 24 Anion Gap 15.1 BUN 18 Creatinine 0.9 Glucose 132 H POC Glucose 137 178 Calcium 9.6 02/15/19 02/15/19 15:22 11:05 Sodium Potassium Chloride Carbon Dioxide Anion Gap BUN Creatinine Glucose POC Glucose 87 103 Calcium Vitals: Last Vital Signs Temp 98.2 F 02/16/19 07:53 Pulse 82 02/16/19 07:53 Resp 33 H 02/16/19 07:53 BP 117/77 02/16/19 09:07 Pulse Ox 99 02/16/19 07:53 Discharge Plan Discharge Patient Disposition: Home, Self-Care Condition: Stable Prescriptions: New Lasix 40 mg tablet 40 mg PO DAILY 30 Days Qty: 30 RF: 5 potassium chloride 10 mEq Tablet Extended Release 20 meq PO DAILY 30 Days Qty: 30 RF: 3 Continued pravastatin 20 mg tablet 20 mg PO DAILY RF: 0 losartan 50 mg tablet 50 mg PO DAILY RF: 0 nitroglycerin [Nitrostat] 0.4 mg tablet, sublingual 0.4 mg SUBLINGUAL Q5M PRN (Reason: Chest Pain) RF: 0 metoprolol tartrate 50 mg tablet 50 mg PO BID RF: 0 lutein 40 mg capsule 40 mg PO BID RF: 0 omega-3 fatty acids [Fish Oil Concentrate] 1,000 mg capsule 1,000 mg PO BID RF: 0 vitamin B complex [B Complex-Vitamin B12] Tablet 1 tab PO QAM RF: 0 ferrous gluconate 324 mg (37.5 mg iron) tablet 324 mg PO DAILY RF: 0 aspirin 81 mg tablet,delayed release (DR/EC) 81 mg PO BEDTIME RF: 0 glucosamine HCl 1,500 mg tablet 3,000 mg PO DAILY RF: 0 magnesium chloride [Mag 64] 64 mg tablet,delayed release (DR/EC) 64 mg PO BID RF: 0 Complete Multivitamin Tablet 1 tab PO QAM RF: 0 Vitamin C 500 mg Tablet 500 mg PO DAILY RF: 0 Discontinued potassium chloride 10 mEq tablet,ER particles/crystals 10 meq PO BID RF: 0 Discharge Orders: Discharge Order (Routine); Ordered 02/16/19 Ordered By: Hamzah Montes Other Ambulatory Orders: Sestamibi Stress Test Request (Routine) Timeframe: 1 Week Facility: [facility] - Location: Cardiac Diagnostic Laboratory Ordered By: Hamzah Montes Referrals: Hamzah Montes MD [Physician] - 1 month Ashley Bear FNP [Nurse Practitioner] - 4-7 days (Need to check on the groin, do a BMP and reassess the heart failure status) Discharge Diet: Diabetic Discharge Activity: Increase activity as tolerated Patient Instructions: Congestive Heart Failure Discharge Attestations Time Spent in Discharge Care*: greater than 30 min Specific Discharge Activities: Specific discharge activities: educating patient, discussing with caseworker intake/social workers/dc planners, documenting/other paperwork and evaluating patient/reviewing data Quality Metrics Clinical Quality Measures During this hospital stay, did patient experience: None Coding Level of Care Code Acute Solaris Administrator for Chg Fwd Exam Problem Focused Diagnoses Congestive heart failure I50.9 Coronary arteriosclerosis after coronary artery bypass grafting I25.810 Cardiomyopathy I25.5 Cardiomyopathy type: ischemic Aortic valvar stenosis I35.0 Pacemaker Z95.0 Mixed hyperlipidemia E78.2 Essential hypertension I10
--- NOTE | 2019-02-16 10:35 | PC.SOCIAL ---
Pg 2 IMM Explained to pt Pg 2 IMM. Pt verbally understands & signed. Provided pt a copy. Signed, dated, & timed, then placed in chart.
[2019-02-16 11:46] VITALS: BP 117/77
--- NOTE | 2019-02-16 12:29 | PC.NURSE ---
discharge to home self-care Instructed pt to ff-up next week with an outpatient tests and home school teacher ff-up. Post angiogram home care instructions, chf stoplight and new Rx action, dosing, timing and s/effects discuss with pt. educated pt on checking his BP at home and what to do and watch for any worsening of symptoms. 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 discharge packet provided to pt. ushered pt via wheelchair.
== END 2019-02-16 12:31 | disposition home or self-care (01) | DRG 287 ==
PROVIDERS: Admitting Provider Internal Medicine Cardiovascular Disease; Family Provider Family Medicine; PCP Family Medicine; Visit Provider Internal Medicine Cardiovascular Disease
PROC: 4A023N7 Measurement of Cardiac Sampling and Pressure, Left Heart, Percutaneous Approach (ICD-10-PCS; principal; 2019-02-15 12:00)
DX: I11.0 Hypertensive heart disease with heart failure (principal); I25.810 Atherosclerosis of coronary artery bypass graft(s) without angina pectoris; E78.2 Mixed hyperlipidemia; I25.5 Ischemic cardiomyopathy; I50.82 Biventricular heart failure; Z95.1 Presence of aortocoronary bypass graft; Z95.0 Presence of cardiac pacemaker; I35.0 Nonrheumatic aortic (valve) stenosis; Z79.82 Long term (current) use of aspirin
CPT/HCPCS: 36415; 36416; 71046; 80048; 80053; 80061; 81003; 82962; 83880; 85025; 85610; 85730; 93005; 93459; 94664; 96372; 96375; C1769; C1887; C1894; J1644; J1650; J1815; J1940; J2001; J2250; J2270; J3010; J7030; Q0163; Q9967

== ENCOUNTER → 2019-02-21 10:49 | Outpatient (BNVA) | payer MEDICARE, SELFPAY | PROVIDERS: Family Provider Family Medicine; PCP Family Medicine; Visit Provider Nurse Practitioner Family | DX: Z09 Encounter for follow-up examination after completed treatment for conditions other than malignant neoplasm (principal); I25.810 Atherosclerosis of coronary artery bypass graft(s) without angina pectoris; I50.42 Chronic combined systolic (congestive) and diastolic (congestive) heart failure | CPT/HCPCS: 80048 ==

== ENCOUNTER 2019-02-28 10:04 | Outpatient (CLI) | payer MEDICARE, SELFPAY ==
[2019-02-28 11:10] VITALS: BMI 29.0
--- NOTE | 2019-02-28 12:00 | ECG_ITS ---
NAME OF STUDY: LEXISCAN SESTAMIBI STRESS TEST INDICATION: Chest Pain, PROCEDURE: At the baseline, the EKG revealed a paced, V sensed rhythm. The baseline blood pressure was 142/92 mm Hg with a heart rate of 84 beats/min. Lexiscan was infused over a period of 20 seconds. A total of 0.4 milligrams of Lexiscan was infused. The stress phase was continued for a total of 5 minutes. Heart rate at the end of the stress phase was 83 with a blood pressure 128/84. The EKG at the peak infusion revealed no significant changes. Sestamibi was injected 20 seconds after the Lexiscan infusion. Blood pressure at the end of the recovery phase was 134/83 with a heart rate of 82 per minute. CONCLUSION: 1. The EKG response to Lexiscan infusion is uninterpretable due to the pacing artifact [ 2. No LexiScan induced chest pain or cardiac arrhythmia 3. Normal blood pressure and heart rate response 4. Sestamibi/sestamibi perfusion scan pending; see separate report. Electronically Signed On 03-01-2019 13:49:37 ORACLE WMS CONSULTANT by Hamzah Montes M.D. [email or web address]
--- NOTE | 2019-02-28 12:01 | NMCV_ITS ---
NM lawrence perf SPECT r/s* [id number] Thong Salgado Age: 79 Gender: M : 1940 Exam Date: 02/28/2019 12:12 Ordering Phys: Hamzah Montes MD ([email or web address]) Technologist: SOCRATES Davenport Exam Location: [facility] Indications: Chest pain STRESS TEST [facility] IMAGE PROTOCOL Rest/Stress 1 Lexiscan Day Radiopharmaceutical Dose (mCi) Administration Site Administered by Rest: Tc-99m 10.1 IV SOCRATES Davenport Sestamibi Stress:Tc-99m 32.4 IV SOCRATES Davenport Sestamibi Rest: 28-Feb-2019 60 Discovery 630 Stress: 28-Feb-2019 60 Discovery 630 0.4mg Lexiscan. Images obtained in supine and prone position. SPECT RESULTS Technical Quality: Good Raw Data Analysis: Normal Image Corrections: No attenuation or motion correction applied Summed Stress Score: 6 Summed Rest Score: 8 Summed Difference Score: 1 PERFUSION FINDINGS Small to moderate area of severely decreased tracer uptake in the basal mid and apical inferior, mid inferolateral and LV apex. Some reversibility was noted in the mid inferolateral region. FUNCTIONAL RESULTS (calculated via Gated SPECT) Stress Image LV EF (%): 18 Stress EDV (mL):174 TID: 0.93 Stress ESV (mL):142 FUNCTIONAL FINDINGS: Segmental wall motion analysis revealed severe diffuse hypokinesia of the septum, inferior wall and apex. Moderate diffuse hypokinesia of the anterior wall. IMPRESSIONS 1. Myocardial perfusion imaging revealing small to moderate area of severely decreased tracer uptake in the inferior wall and inferolateral region, with some reversibility in the inferolateral region, suggestive of myocardial scarring in the distribution of the right coronary /circumflex artery with a small area of ischemia in the distribution of the circumflex artery.. 2. Markedly diminished LV ejection fraction of 18%. 3. Multiple wall motion normalities as mentioned above. 4. Moderately dilated LV cavity with an end-systolic volume of 142 mL No similar previous studies are available for comparison Dr Hamzah Montes MD FAC (Electronically Signed) Final Date: 28 February 2019 18:45 S
[2019-02-28] MEDS: regadenoson 0.4 Mg/5 ml Syringe IVP (12:51)
[2019-02-28 15:49] VITALS: BP 134/84; PULSE 82
== END 2019-02-28 10:05 | disposition home or self-care (01) ==
LOC: CDL 10:11
PROVIDERS: Family Provider Family Medicine; PCP Family Medicine; Visit Provider Internal Medicine Cardiovascular Disease
DX: R07.9 Chest pain, unspecified (principal)
CPT/HCPCS: 78452; 93017; A9500; J2785

== ENCOUNTER → 2019-10-04 07:30 | Day surgery (SDC) | payer MEDICARE, SELFPAY ==
[2019-10-04] VITALS (7 sets, daily range): BP systolic 86–107; BP diastolic 61–78; PULSE 80–89; RESP 15–18; TEMP 37; O2SAT 94–100; BMI 26.9
--- NOTE | 2019-10-04 | USCV_ITS ---
Thong Salgado Age: 79 Gender: M : 1940 Exam Date: 10/04/2019 07:53 Ordering Phys: Hamzah Montes MD ([email or web address]) Technologist: Niko Mallory Exam Location: [facility] [place] Indication: BP: 91 / 70 HR: Rhythm: Sinus Technical Quality: Excellent MEASUREMENTS (Male / Female) Normal Values 2D ECHO LVOT Diameter 2.0 cm DOPPLER AV Peak Velocity 385.0 cm/s LVOT Peak Velocity 57.0 cm/s AV Area Cont Eq vti 0.4 cm squared AV Area Cont Eq pk 0.5 cm squared Medications IV propofol and etomidate by the anesthesia service. Further details, please refer to the anesthesia report Complications None Proc. Components The patient was brought to the TRE examination room in a fasting state after obtaining an informed consent. The TRE probe was passed into the posterior pharynx , mid-esophagus and distal esophagus. Transesophageal pictures were not taken because the patient's discomfort/restlessness FINDINGS Left Ventricle Diffuse hypokinesia of the left ventricle with ejection fraction around 30 to 35% Right Ventricle Normal size with slightly diminished ejection fraction Right Atrium Appears to be upper limit of normal size. Left Atrium Left atrium was found to be moderately dilated but there are no intracardiac masses. LA Appendage Appears to be of normal size with diminished contractility. IA Septum Appears to be intact with no evidence of any ASD or PFO by color flow Doppler examination and saline contrast injection. Mitral Valve Moderate mitral regurgitation was noted-7 central venous return jet Aortic Valve The valve was found to have moderate diffuse calcification of all the leaflets. Appears to have severe stenosis. The valve area was measured to be 0.3 9 cm squared by planimetry. Based on the transthoracic views, the peak velocity of 3.85 m/s with a peak gradient of 59 and a mean gradient of 29 mmHg. Based on the VTI, the valve area of 0.4 cm squared Tricuspid Valve Mild tricuspid regurgitation was seen Pulmonic Valve No gross abnormalities noted. Pericardium No pericardial effusion. Aorta Mild diffuse plaques in the ascending aorta. The ascending aorta was found to be dilated to 4.3 cm CONCLUSIONS 1. Severe aortic valve stenosis with a valve area of 0.4 cm squared, both by planimetry and by Doppler examination(TVI, low gradient) 2. Diffuse hypokinesia of the left ventricle with an ejection fraction of 30 to 35%. 3. Mildly dilated LV cavity and moderately dilated left atrium. 4. Moderate mitral regurgitation with mild tricuspid regurgitation. Trace of aortic regurgitation 5. Intact interatrial septum. 6. No intracardiac masses. 7. Dilated ascending aorta, measuring 4.3 cm in diameter 8. No similar previous studies available for comparison Please send a copy of this report to Dr. Sav Mckay at the [facility] Dr Hamzah Montes MD FACC (Electronically Signed) Final Date: 04 October 2019 16:54 S
--- NOTE | 2019-10-04 08:03 | ANES.PREANE2 ---
Pre-Anesthetic Assessment Pre-Anesthetic Assessment: Height/Weight: Height 1.8 m Preop Diagnosis: severe Proposed Procedure: Operation Date: 10/04/19 08:30 Proposed Procedures p TRE (Transesophageal Echocardiogram)(Not Applicable) - Hamzah Montes MD Was Beta Anatoliy taken within 24 hours: Yes Last Intake: 21:00 Social: Social History: No alcohol and No tobacco Exam: Pre-Anes Outpt Exam: alert, oriented x 3, clear to auscultation bilaterally and regular rate & rhythm Airway: Submandibular: WNL Cervical ROM: WNL MP: 2 Dentition: False and Full History/ROS: No significant history except as noted and No significant complaints Pulmonary: Pulmonary: PIKE and SOB CV/HEM: CV/HEM: CHF and HTN Comments: EF 35% - 02/25 severe cabg 2008 pacemaker : : None reported Hepatic: Hepatic: None reported GI: GI: None reported Metabolic: Metabolic: None reported Musc/skel: Musc/skel: OA/DJD Neuropsych: Neuropsych: None reported Anesthetic Plan: ASA status: 4 Anesthesia: MAC PFSH Anesthesia PFSH: Medical History Aortic valvar stenosis Cardiac arrhythmia Cardiomyopathy LVEF has decreased from 45% to 35% by echocardiogram. Cataract Coronary arteriosclerosis after coronary artery bypass grafting CABG x2 (OLSON to LAD and SVG to OM, 05/08/2008) Essential hypertension Mixed hyperlipidemia last lipid panel 2020: Cholesterol 93, triglycerides 78, LDL 55. Pacemaker Dual-chamber Thoracic aneurysm without mention of rupture Ascending aortic aneurysm 4.4cm by CT 07/2017 Surgical History H/O foot surgery Hx of appendectomy Hx of CABG Family History Mother Dementia Other CAD (coronary artery disease) Diabetes Hypertension Stroke Denies family history of Clotting disorder Hyperlipidemia Psychiatric illness Chronic kidney disease (CKD) Suicide Anesthesia complication Bleeding disorder Family history of premature coronary artery disease Lung disease Cancer Social History Smoking and tobacco status: never smoked Alcohol intake: never Household members: significant other Housing: House Data Anesthesia Cardiac Studies: No Data to Display
--- NOTE | 2019-10-04 08:23 | P.HP_ITS ---
Providers/Chief Complaint Primary Care Provider: Destin Chung MD Chief Complaint: Joaquin History of Present Illness Thong Salgado JR is a 79 year old male with a history of atherosclerotic heart disease, status post coronary bypass surgery, aortic valve stenosis, LV dysfunction, congestive heart failure, high blood pressure and dyslipidemia, is here for a transesophageal echocardiogram to evaluate the aortic valve stenosis. Patient has a dual-chamber permanent pacemaker. He denies any chest pain. His main plaint is the progressive shortness of breath. No fever or chills. No orthopnea. Review of Systems Narrative: CONSTITUTIONAL: No fever or chills. [] EYES: No blurring of vision or other visual disturbances lately. [] ENT: No hoarseness of voice, auditory disturbances or sore throat. [] CARDIOVASCULAR: As mentioned above. [] RESPIRATORY: Shortness of breath as mentioned above. GASTROINTESTINAL: No hematemesis or melena. [] GENITOURINARY: No dysuria or hematuria. [] INTEGUMENTARY: No skin rashes or history of skin cancer. [] NEURO: No transient ischemic attacks or amaurosis. [] PSYCHIATRIC: No history of psychosis or major depression. [] HEMATOLOGIC: No bleeding disorders or significant anemia. [] ENDOCRINE: No history of polyuria or polydipsia. [] MUSCULOSKELETAL: No recent joint pain or swelling. [] ALLERGY/IMMUNOLOGY: As mentioned above. [] Medications/Allergies Home Medications Medication Instructions Recorded Confirmed Last Taken Type Vitamin C 500 mg PO DAILY 02/13/19 08/12/19 02/13/19 08:00 History ferrous gluconate 324 mg (37.5 mg 324 mg PO DAILY tab 02/13/19 08/12/19 02/13/19 08:00 History iron) tablet glucosamine HCl 1,500 mg tablet 3,000 mg PO DAILY tab 02/13/19 08/12/19 02/13/19 08:00 History lutein 40 mg capsule 40 mg PO BID cap 02/13/19 08/12/19 02/13/19 08:00 History magnesium chloride 64 mg 64 mg PO BID tab 02/13/19 08/12/19 02/13/19 08:00 History (magnesium chloride) tablet,delayed release multivitamin,fw-uvbc-wflfkewd 1 tab PO QAM 02/13/19 08/12/19 02/13/19 08:00 History omega-3 fatty acids 1,000 mg 1,000 mg PO BID cap 02/13/19 08/12/19 02/13/19 08:00 History capsule pravastatin 20 mg tablet 20 mg PO DAILY tab 02/13/19 08/12/19 02/12/19 21:30 History vitamin B complex 1 tab PO QAM 02/13/19 08/12/19 02/13/19 08:00 History nitroglycerin 0.4 mg sublingual 0.4 mg SUBLINGUAL Q5M PRN #30 tab 05/07/19 08/12/19 Unknown Rx tablet losartan 50 mg tablet 50 mg PO DAILY #90 tab 06/03/19 08/12/19 Unknown Rx potassium chloride 10 mEq 20 meq PO DAILY 30 Days #30 tab 06/12/19 08/12/19 Unknown Rx tablet,extended release furosemide 40 mg tablet 40 mg PO DAILY 30 Days #30 tab 08/05/19 08/12/19 Unknown Rx Eliquis 5 mg tablet 5 mg PO BID #60 tab NS 09/30/19 Unknown Rx isosorbide mononitrate 120 mg 120 mg PO DAILY #90 tab 09/30/19 Unknown Rx tablet,extended release 24 hr metoprolol tartrate 50 mg PO BID 30 Days #60 tab MDD 10/04/19 Unknown Rx 50AM; 25 PM Allergies Allergy/AdvReac Type Severity Reaction Status Date / Time ciprofloxacin Allergy Unknown unknown Verified 03/11/19 16:04 Penicillins Allergy Unknown unknown Verified 03/11/19 16:04 PFSH Acute PFSH: Medical History Aortic valvar stenosis Cardiac arrhythmia Cardiomyopathy LVEF has decreased from 45% to 35% by echocardiogram. Cataract Coronary arteriosclerosis after coronary artery bypass grafting CABG x2 (OLSON to LAD and SVG to OM, 05/08/2008) Essential hypertension Mixed hyperlipidemia last lipid panel 2019: Cholesterol 93, triglycerides 78, LDL 55. Pacemaker Dual-chamber Thoracic aneurysm without mention of rupture Ascending aortic aneurysm 4.4cm by CT 07/2017 Surgical History H/O foot surgery Hx of appendectomy Hx of CABG Family History Mother Dementia Other CAD (coronary artery disease) Diabetes Hypertension Stroke Denies family history of Clotting disorder Hyperlipidemia Psychiatric illness Chronic kidney disease (CKD) Suicide Anesthesia complication Bleeding disorder Family history of premature coronary artery disease Lung disease Cancer Social History Smoking and tobacco status: never smoked Alcohol intake: never Household members: significant other Housing: House Vitals/I&O/Wt Last Vital Signs Temp 98.6 F 10/04/19 08:05 Pulse 89 10/04/19 08:05 Resp 16 10/04/19 08:05 BP 107/71 10/04/19 08:05 Pulse Ox 97 10/04/19 08:05 Weight last 48 hrs Weight 193 lb Physical Exam Narrative: EXAM NARRATIVE: GENERAL: The patient is alert and oriented times three. Not in any acute distress. HEENT: No significant pallor, icterus or lymphadenopathy.Oral cavity: There are no mucous membrane lesions. NECK: Trachea appears to be central. No masses noted. No JVD or thyromegaly appreciated. RESPIRATORY: Chest is symmetrical. No intercostals muscle retraction or any accessory muscle activation. There is no chest wall tenderness. Breath sounds are heard bilaterally. No rales or rhonchi heard. No evidence of any consolidation. BREASTS: Deferred. HEART: Ejection systolic murmur grade 4/6 in the aortic area. No diastolic murmurs. No pericardial rub. The second heart sound is muffled. ABDOMEN: No vessel pulsations or distention. No tenderness. No organomegaly appreciated. Bowel sounds are normally heard. : Deferred. RECTAL: Deferred. LYMPHATIC: No lymphadenopathy noted in the neck or groin. EXTREMITIES: No edema or cyanosis. No clubbing. Peripheral pulses are palpated in fairly good volume and amplitude MUSCULOSKELETAL: No acute joint deformities or swelling SKIN: There are no significant rashes or ecchymosis NEUROPSYCHIATRIC: The patient is alert and oriented x3. Appears to be in a good mood. No tremors or rigidity noted. A&P Assessment and plan (1) Aortic valvar stenosis: Patient patient have a low-grade severe aortic valve stenosis by transthoracic echocardiogram. For further evaluation of the aortic valve, a JOAQUIN was recommended. The risk of aspiration, bleeding, soft tissue injury, perforation of the stomach/esophagus and other concomitant complications were explained to the patient in detail. The patient understood this well and consented to proceed Status: Acute Qualifiers: Cardiac valve disease etiology: nonrheumatic Qualified Code(s): I35.0 - Nonrheumatic aortic (valve) stenosis (2) Systolic and diastolic CHF, chronic: Patient is currently compensated. Status: Acute (3) Coronary arteriosclerosis after coronary artery bypass grafting: Currently has no chest pain. We will continue on the current medications. Status: Acute Additional A&P Information Other problems are as outlined before. Based on the JOAQUIN findings, further recommendations will be made. 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
--- NOTE | 2019-10-04 08:29 | W.PM.OPSUD ---
Surgery/Procedure H&P Update DATE OF PROCEDURE: October 04, 2019 DATE H&P PERFORMED: 10/04/19 PREOP DIAGNOSIS: severe PLANNED PROCEDURE: Operation Date: 10/04/19 08:30 Proposed Procedures p TRE (Transesophageal Echocardiogram)(Not Applicable) - Hamzah Montes MD
--- NOTE | 2019-10-04 10:55 | PC.NURSE ---
Discharge instructions Discharge instructions given to pt at this time, verbalized understanding. Pt taken to lobby via w/c and discharged home with friend via private vehicle.
== END | disposition home or self-care (01) ==
PROVIDERS: PCP Family Medicine; Visit Provider Internal Medicine Cardiovascular Disease
PROC: (CPT 93312; principal; 2019-10-04 08:30)
PROC: (CPT 93312; 2019-10-04 08:30)
DX: I08.3 Combined rheumatic disorders of mitral, aortic and tricuspid valves (principal); I77.810 Thoracic aortic ectasia; I25.10 Atherosclerotic heart disease of native coronary artery without angina pectoris; I11.0 Hypertensive heart disease with heart failure; I50.42 Chronic combined systolic (congestive) and diastolic (congestive) heart failure; E78.5 Hyperlipidemia, unspecified; Z79.01 Long term (current) use of anticoagulants; Z95.0 Presence of cardiac pacemaker; Z95.1 Presence of aortocoronary bypass graft; Z88.0 Allergy status to penicillin; Z88.1 Allergy status to other antibiotic agents; Z82.49 Family history of ischemic heart disease and other diseases of the circulatory system
CPT/HCPCS: 12345; 93312; 93320; 93325; J2250; J2370; J3490; J7030

== ENCOUNTER 2019-11-15 08:58 | Inpatient (IN) | payer MEDICARE, SELFPAY ==
[2019-11-15] VITALS (9 sets, daily range): BP systolic 103–129; BP diastolic 69–87; PULSE 80–85; RESP 17–22; TEMP 36.6–36.8; O2SAT 93–97; BMI 25.4
--- NOTE | 2019-11-15 09:02 | ED_ITS ---
HPI - SOB/Dyspnea General: Chief Complaint: Shortness of Breath/Dyspnea Stated Complaint: SOB Time Seen by Provider: 11/15/19 09:01 History of Present Illness: HPI Narrative: 79-year-old male presents emergency room complaining of shortness of breath. He has a history of valvular disease he is supposed to be undergoing surgery for valve replacement at [facility] in [place] in 3 weeks. Last several days he has had increasing difficulty breathing and shortness of breath is worse with exertion, slightly improved with rest but still difficult. He denies fever sweats or chills nausea vomiting or diarrhea he has not had any productive cough. MD elicited complaint: shortness of breath and cough Pertinent past history: congestive heart failure (EF 35% February 07, 2019) and other (Valvular disease) Onset (ago): day(s) Context: occurred during exertion Timing: intermittent and progressively worsening Severity: severe Exacerbating factors: lying flat, exertion and coughing Relieving factors: rest Known history of: congestive heart failure and other Associated symptoms: Reports cough and orthopnea; Deny abdominal pain, chest congestion, chest pain, diaphoresis, dizziness, extremity pain, fever(s), hemoptysis, lightheadedness, myalgias, nausea, paresthesias, polydipsia, polyuria, rash, sense of impending doom, syncope or v omiting Treatment prior to arrival: none Review of Systems Const: Denies: fever(s) or diaphoresis ENMT: Denies: throat pain, ear or mastoid pain, nasal discharge or nasal congestion Card: Reports: orthopnea; Denies: chest pain, lightheadedness or syncope Resp: Denies: hemoptysis or chest congestion GI: Denies: abdominal pain, nausea or vomiting : Denies: flank pain, dysuria, urinary frequency or urinary urgency Musc: Denies: extremity pain Skin/Breast: Denies: rash or pruritus Neuro: Denies: dizziness Endo: Denies: polyuria or polydipsia PFSH ED PFSH: Medical History Aortic valvar stenosis Cardiac arrhythmia Cardiomyopathy LVEF has decreased from 45% to 35% by echocardiogram. Cataract Coronary arteriosclerosis after coronary artery bypass grafting CABG x2 (OLSON to LAD and SVG to OM, 05/08/2008) Essential hypertension Mixed hyperlipidemia last lipid panel 2020: Cholesterol 93, triglycerides 78, LDL 55. Pacemaker Dual-chamber Thoracic aneurysm without mention of rupture Ascending aortic aneurysm 4.4cm by CT 07/2017 Surgical History H/O foot surgery Hx of appendectomy Hx of CABG Family History Mother Dementia Other CAD (coronary artery disease) Diabetes Hypertension Stroke Denies family history of Clotting disorder Hyperlipidemia Psychiatric illness Chronic kidney disease (CKD) Suicide Anesthesia complication Bleeding disorder Family history of premature coronary artery disease Lung disease Cancer Social History Smoking and tobacco status: never smoked Alcohol intake: never Household members: significant other Housing: House Physical Exam Const: COMMON NORMALS: no acute distress GENERAL APPEARANCE: cooperative and comfortable ORIENTATION/CONSCIOUSNESS: Yes awake, Yes oriented to person, Yes oriented to place and Yes oriented to time HENMT: COMMON NORMALS: normocephalic, atraumatic and hearing grossly normal bilaterally HEAD & SCALP: normocephalic and atraumatic Neck/C-Spine: COMMON NORMALS: no JVD Resp: AUSCULTATION: crackles Cardio: COMMON NORMALS: no JVD, regular rate, regular rhythm and No murmurs present (Cardio) RATE: regular rate RHYTHM: regular rhythm HEART SOUNDS: Murmur heart sound present systolic Location: left sternal border Intensity: IV/ GI: COMMON NORMALS: Soft to palpation and No hepatosplenomegaly present AUSCULTATION: Yes normoactive bowel sounds PALPATION: Yes Soft to palpation, No Tenderness to palpation present (GI), No Guarding due to palpation present (GI) and Yes No hepatosplenomegaly present Extremity: COMMON NORMALS: normal to inspection, capillary refill normal, no clubbing, cyanosis or edema, no calf tenderness and no pedal edema Neuro: SENSORIUM/ORIENTATION: Yes oriented to person, Yes oriented to place and Yes oriented to time Skin: COMMON NORMALS: no rashes or lesions noted GENERAL SKIN EXAM: no rashes or lesions noted Course Vital Signs: Vital signs: Vital Signs Temperature 97.6 F 11/16/19 12:48 Pulse Rate 82 11/16/19 12:48 Respiratory Rate 18 11/16/19 12:48 Blood Pressure 101/67 11/16/19 12:48 Pulse Oximetry 96 11/16/19 12:48 MDM - SOB/Dyspnea MDM Narrative: Medical decision making narrative: Discussed with Dr. Mckay. Unfortunately there are no beds available at any of the local hospitals he recommends the following: Total of 80 mg of IV Lasix (he is already being given 40 will give another 40), DC the metoprolol, a loading dose of digoxin 0.5 mg to be followed by 0.25 mg in 4 hours x 2. He also recommends that we continue him on dig at 0.25 mg daily and a short-term follow-up in an outpatient to reevaluate his heart failure and check a dig level and electrolytes. He should continue his Lasix at 80 mg p.o. daily at home after discharge. Lab Data: Labs: Lab Results 11/15/19 11/15/19 11/15/19 Range/Units 09:15 09:15 09:15 WBC 6.8 (4.0-10.0) 10^3/ uL RBC 3.94 L (4.1-5.3) 10^6/u L Hgb 11.8 (11.7-16.6) g/dL Hct 36.7 L (42.0-52.0) % MCV 93.1 (80-94) fL MCH 29.9 (28.0-34.0) pg MCHC 32.2 (30.0-36.0) g/dL RDW 14.2 (12.1-15.1) % Plt Count 301 (130-400) 10^3/c mm MPV 9.4 (7.4-10.4) fL Neut % (Auto) 72.3 % Lymph % (Auto) 14.0 % Stanley % (Auto) 10.5 % Eos % (Auto) 2.4 % Baso % (Auto) 0.7 % Neut # (Auto) 4.89 (1.8-7.7) 10^3/u L Lymph # (Auto) 1.0 (0.8-4.8) 10^3/u L Stanley # (Auto) 0.7 (0.2-0.9) 10^3/u L Eos # (Auto) 0.2 (0.0-0.8) 10^3/u L Baso # (Auto) 0.1 (0.0-0.1) 10^3/u L Nucleated RBC % (a uto) 0 % Nucleated RBCs # 0.0 /100WBC Fibrinogen 347 (174-498) mg/dL D-Dimer 0.51 (0-0.59) ug/mIFE U Specimen Type Sample Site ABG pH (7.35-7.45) ABG pCO2 (35-45) mmHg ABG pO2 (80.0-100.0) mmH g ABG HCO3 (22-26) mmol/L ABG Base Excess (-2.0-2.0) mmol/ L Tony Test Hematocrit (42-52) % O2 Delivery Device FiO2 % Tube Sizer And Cutter Operator ID Sodium 140 (136-145) mmol/L Potassium 4.2 (3.5-5.1) mmol/L Chloride 107 (98-107) mmol/L Carbon Dioxide 23 (22-29) mmol/L Anion Gap 14.2 (5-19) BUN 17 (8-23) mg/dL Creatinine 0.9 (0.7-1.2) mg/dL GFR Calculation Not Reportable Glucose 134 H (65-115) mg/dL Calculated Osmolal ity 294 (285-295) mOsm/k g Lactic Acid (0.5-2.2) mmol/L Calcium 8.7 (8.5-10.5) mg/dL Magnesium 2.3 (1.7-2.3) mg/dL Ferritin 243 (30-400) ng/mL Total Bilirubin 0.4 (0.15-1.2) mg/dL AST 39 (0-40) U/L ALT 49 H (0-41) U/L Alkaline Phosphata se 95 (40-130) IU/L Lactate Dehydrogen ase 220 (135-225) U/L Creatine Kinase 186 (39-308) U/L Troponin T Baselin e (0-15) ng/L Troponin T 120 Min [place] (0-15) ng/L Delta Troponin T (0-10) ABS# C-Reactive Protein 3.6 (0.0-4.9) mg/L NT-Pro-B Natriuret Pep 5453 H (0-450) pg/mL Total Protein 6.6 (6.6-8.7) g/dL Albumin 4.2 (3.5-5.2) g/dL Globulin 2.4 (1.3-4.6) g/dL Procalcitonin 0.06 (0-0.5) ng/mL Digoxin (0.6-1.2) ng/mL Nasal/Oral COVID-1 9 PCR Influenza Type A A g (Negative) Influenza Type B A g (Negative) SARS-CoV-2 Ag (Rap id) (Negative) 11/15/19 11/15/19 11/15/19 Range/Units 09:15 09:15 09:32 WBC (4.0-10.0) 10^3/ uL RBC (4.1-5.3) 10^6/u L Hgb (11.7-16.6) g/dL Hct (42.0-52.0) % MCV (80-94) fL MCH (28.0-34.0) pg MCHC (30.0-36.0) g/dL RDW (12.1-15.1) % Plt Count (130-400) 10^3/c mm MPV (7.4-10.4) fL Neut % (Auto) % Lymph % (Auto) % Stanley % (Auto) % Eos % (Auto) % Baso % (Auto) % Neut # (Auto) (1.8-7.7) 10^3/u L Lymph # (Auto) (0.8-4.8) 10^3/u L Stanley # (Auto) (0.2-0.9) 10^3/u L Eos # (Auto) (0.0-0.8) 10^3/u L Baso # (Auto) (0.0-0.1) 10^3/u L Nucleated RBC % (a uto) % Nucleated RBCs # /100WBC Fibrinogen (174-498) mg/dL D-Dimer (0-0.59) ug/mIFE U Specimen Type Arterial Sample Site Brachial, right ABG pH 7.43 (7.35-7.45) ABG pCO2 37.1 (35-45) mmHg ABG pO2 65.2 L (80.0-100.0) mmH g ABG HCO3 24.4 (22-26) mmol/L ABG Base Excess 0.2 (-2.0-2.0) mmol/ L Tony Test N/a Hematocrit 36.5 L (42-52) % O2 Delivery Device Room air FiO2 21.0 % Tube Sizer And Cutter Operator ID Amh Sodium (136-145) mmol/L Potassium (3.5-5.1) mmol/L Chloride (98-107) mmol/L Carbon Dioxide (22-29) mmol/L Anion Gap (5-19) BUN (8-23) mg/dL Creatinine (0.7-1.2) mg/dL GFR Calculation Glucose (65-115) mg/dL Calculated Osmolal ity (285-295) mOsm/k g Lactic Acid 1.3 (0.5-2.2) mmol/L Calcium (8.5-10.5) mg/dL Magnesium (1.7-2.3) mg/dL Ferritin (30-400) ng/mL Total Bilirubin (0.15-1.2) mg/dL AST (0-40) U/L ALT (0-41) U/L Alkaline Phosphata se (40-130) IU/L Lactate Dehydrogen ase (135-225) U/L Creatine Kinase (39-308) U/L Troponin T Baselin e 35 H (0-15) ng/L Troponin T 120 Min [place] (0-15) ng/L Delta Troponin T (0-10) ABS# C-Reactive Protein (0.0-4.9) mg/L NT-Pro-B Natriuret Pep (0-450) pg/mL Total Protein (6.6-8.7) g/dL Albumin (3.5-5.2) g/dL Globulin (1.3-4.6) g/dL Procalcitonin (0-0.5) ng/mL Digoxin (0.6-1.2) ng/mL Nasal/Oral COVID-1 9 PCR Influenza Type A A g (Negative) Influenza Type B A g (Negative) SARS-CoV-2 Ag (Rap id) (Negative) 11/15/19 11/15/19 11/15/19 Range/Units 09:40 09:40 12:10 WBC (4.0-10.0) 10^3/ uL RBC (4.1-5.3) 10^6/u L Hgb (11.7-16.6) g/dL Hct (42.0-52.0) % MCV (80-94) fL MCH (28.0-34.0) pg MCHC (30.0-36.0) g/dL RDW (12.1-15.1) % Plt Count (130-400) 10^3/c mm MPV (7.4-10.4) fL Neut % (Auto) % Lymph % (Auto) % Stanley % (Auto) % Eos % (Auto) % Baso % (Auto) % Neut # (Auto) (1.8-7.7) 10^3/u L Lymph # (Auto) (0.8-4.8) 10^3/u L Stanley # (Auto) (0.2-0.9) 10^3/u L Eos # (Auto) (0.0-0.8) 10^3/u L Baso # (Auto) (0.0-0.1) 10^3/u L Nucleated RBC % (a uto) % Nucleated RBCs # /100WBC Fibrinogen (174-498) mg/dL D-Dimer (0-0.59) ug/mIFE U Specimen Type Sample Site ABG pH (7.35-7.45) ABG pCO2 (35-45) mmHg ABG pO2 (80.0-100.0) mmH g ABG HCO3 (22-26) mmol/L ABG Base Excess (-2.0-2.0) mmol/ L Tony Test Hematocrit (42-52) % O2 Delivery Device FiO2 % Tube Sizer And Cutter Operator ID Sodium (136-145) mmol/L Potassium (3.5-5.1) mmol/L Chloride (98-107) mmol/L Carbon Dioxide (22-29) mmol/L Anion Gap (5-19) BUN (8-23) mg/dL Creatinine (0.7-1.2) mg/dL GFR Calculation Glucose (65-115) mg/dL Calculated Osmolal ity (285-295) mOsm/k g Lactic Acid (0.5-2.2) mmol/L Calcium (8.5-10.5) mg/dL Magnesium (1.7-2.3) mg/dL Ferritin (30-400) ng/mL Total Bilirubin (0.15-1.2) mg/dL AST (0-40) U/L ALT (0-41) U/L Alkaline Phosphata se (40-130) IU/L Lactate Dehydrogen ase (135-225) U/L Creatine Kinase (39-308) U/L Troponin T Baselin e (0-15) ng/L Troponin T 120 Min [place] 30.96 H (0-15) ng/L Delta Troponin T -4.04 L (0-10) ABS# C-Reactive Protein (0.0-4.9) mg/L NT-Pro-B Natriuret Pep (0-450) pg/mL Total Protein (6.6-8.7) g/dL Albumin (3.5-5.2) g/dL Globulin (1.3-4.6) g/dL Procalcitonin (0-0.5) ng/mL Digoxin (0.6-1.2) ng/mL Nasal/Oral COVID-1 9 PCR Negative Influenza Type A A g Negative (Negative) Influenza Type B A g Negative (Negative) SARS-CoV-2 Ag (Rap id) (Negative) 11/15/19 11/15/19 Range/Units 13:11 13:27 WBC (4.0-10.0) 10^3/ uL RBC (4.1-5.3) 10^6/u L Hgb (11.7-16.6) g/dL Hct (42.0-52.0) % MCV (80-94) fL MCH (28.0-34.0) pg MCHC (30.0-36.0) g/dL RDW (12.1-15.1) % Plt Count (130-400) 10^3/c mm MPV (7.4-10.4) fL Neut % (Auto) % Lymph % (Auto) % Stanley % (Auto) % Eos % (Auto) % Baso % (Auto) % Neut # (Auto) (1.8-7.7) 10^3/u L Lymph # (Auto) (0.8-4.8) 10^3/u L Stanley # (Auto) (0.2-0.9) 10^3/u L Eos # (Auto) (0.0-0.8) 10^3/u L Baso # (Auto) (0.0-0.1) 10^3/u L Nucleated RBC % (a uto) % Nucleated RBCs # /100WBC Fibrinogen (174-498) mg/dL D-Dimer (0-0.59) ug/mIFE U Specimen Type Sample Site ABG pH (7.35-7.45) ABG pCO2 (35-45) mmHg ABG pO2 (80.0-100.0) mmH g ABG HCO3 (22-26) mmol/L ABG Base Excess (-2.0-2.0) mmol/ L Tony Test Hematocrit (42-52) % O2 Delivery Device FiO2 % Tube Sizer And Cutter Operator ID Sodium (136-145) mmol/L Potassium (3.5-5.1) mmol/L Chloride (98-107) mmol/L Carbon Dioxide (22-29) mmol/L Anion Gap (5-19) BUN (8-23) mg/dL Creatinine (0.7-1.2) mg/dL GFR Calculation Glucose (65-115) mg/dL Calculated Osmolal ity (285-295) mOsm/k g Lactic Acid (0.5-2.2) mmol/L Calcium (8.5-10.5) mg/dL Magnesium (1.7-2.3) mg/dL Ferritin (30-400) ng/mL Total Bilirubin (0.15-1.2) mg/dL AST (0-40) U/L ALT (0-41) U/L Alkaline Phosphata se (40-130) IU/L Lactate Dehydrogen ase (135-225) U/L Creatine Kinase (39-308) U/L Troponin T Baselin e (0-15) ng/L Troponin T 120 Min [place] (0-15) ng/L Delta Troponin T (0-10) ABS# C-Reactive Protein (0.0-4.9) mg/L NT-Pro-B Natriuret Pep (0-450) pg/mL Total Protein (6.6-8.7) g/dL Albumin (3.5-5.2) g/dL Globulin (1.3-4.6) g/dL Procalcitonin (0-0.5) ng/mL Digoxin 0.5 L (0.6-1.2) ng/mL Nasal/Oral COVID-1 9 PCR Influenza Type A A g (Negative) Influenza Type B A g (Negative) SARS-CoV-2 Ag (Rap id) Negative (Negative) Discharge Plan Discharge Patient Disposition: Admitted As Inpatient Admit Provider: Cristin Alvarez Clinical Impression: Essential hypertension Aortic valvar stenosis Qualifiers: Cardiac valve disease etiology: nonrheumatic Qualified Code(s): I35.0 - Nonrheumatic aortic (valve) stenosis Cardiomyopathy Qualifiers: Cardiomyopathy type: other Qualified Code(s): I42.8 - Other cardiomyopathies Congestive heart failure Qualifiers: Heart failure type: combined systolic and diastolic Heart failure chronicity: acute on chronic Qualified Code(s): I50.43 - Acute on chronic combined systolic (congestive) and diastolic (congestive) heart failure Condition: Stable Referrals: Hamzah Montes MD [Physician] - 7-10 days (Please call on Monday to make a follow up appointment) Destin Chung MD [Primary Care Provider] - (Please call [facility] at [phone] to schedule an appointment with Dr Kaplan next week. ) Discharge Diet: Cardiac and Low Salt Discharge Activity: Increase activity as tolerated Patient Instructions: Digoxin (By mouth), Heart Failure (DC), Aortic Stenosis (DC), CHF Stoplight Additional Instructions: * Check blood pressure, weight and heart rate every day. * In case you are gaining more than 3 pounds in 2 days or 5 pounds in 1 week and/or have worsening shortness of breath, you may take Lasix 20 mg that is half tablet along with potassium 10 Meq daily. * Please call back at office if systolic blood pressure is running less than 100 mmHg. * please follow-up as scheduled in heart care services. Discharge Date/Time: 11/15/19 15:30 Coding Level of Care Code ED Pulp Piler for Cristineg Fwd Exam Comprehensive
--- NOTE | 2019-11-15 09:13 | XR_ITS ---
WS: [id number] Portable AP upright chest, 11/15/2019 Clinical Data: dyspnea Comparison: PA and lateral chest, 02/13/2019. Findings: Bilateral small effusions are seen. The pulmonary vascularity is minimally increased. No pn eumonia or pneumothorax is present. The heart is enlarged. Midline sternotomy sutures and a permanent pacemaker remain in position. The aortic arch and descending aorta are tortuous. Monitor leads are o n the chest wall. XR/XR chest 1V portable [id number] Impression: 1. Mild pulmonary vascular congestion with bilateral small pleural effusions. 2. Cardiomegaly with permanent pacemaker. 3. Atherosclerosis.
--- NOTE | 2019-11-15 09:15 | ECG_ITS ---
[facility] Test Date: 2019-11-15 Pat Name: Thong Salgado Department: Room: Gender: Male Color Expert: : 1940 Requested By: Efren Chowdhury Order Number: [id number] Enedina MD: Laith Peters M.D. Measurements Intervals [place] Rate: 80 P: CA: -1 QRS: -67 QRSD: 193 T: 103 QT: 446 QTc: 517 Interpretive Statements ELECTRONIC VENTRICULAR PACEMAKER ABNORMAL RHYTHM ECG Compared to ECG 02/13/2019 15:31:31 No significant changes Electronically Signed On 11-15-2019 18:51:37 CDT by Laith Peters M.D. [email or web address]
[2019-11-15 09:30] LABS: Basophils # 0.1 10^3/uL (0.0-0.1); Basophils % 0.7 %; Eosinophils # 0.2 10^3/uL (0.0-0.8); Eosinophils % 2.4 %; Hematocrit 36.7 % (42.0-52.0); Hemoglobin 11.8 g/dL (11.7-16.6); Mean Corpuscular HGB Conc 32.2 g/dL (30.0-36.0); Mean Corpuscular Hemoglobin 29.9 pg (28.0-34.0); Mean Corpuscular Volume 93.1 fL (80-94); Mean Platelet Volume 9.4 fL (7.4-10.4); Monocytes # 0.7 10^3/uL (0.2-0.9); Monocytes % 10.5 %; Neutrophils # 4.89 10^3/uL (1.8-7.7); Neutrophils % 72.3 %; Nucleated Red Blood Cells % 0 %; Platelet Count 301 10^3/cmm (130-400); Red Blood Count 3.94 10^6/uL (4.1-5.3); Red Cell Distribution Width 14.2 % (12.1-15.1); White Blood Count 6.8 10^3/uL (4.0-10.0)
[2019-11-15 09:44] LABS: Troponin(5th) Baseline 35 ng/L (0-15)
[2019-11-15 09:44] LABS: ABG PCO2 37.1 mmHg (35-45); ABG PH Result 7.43 (7.35-7.45); Arterial Blood Gas Hematocrit 36.5 % (42-52); Base Excess ABG 0.2 mmol/L (-2.0-2.0); Blood Gas Operator Identificat AMH; Blood Gas Sample Site Brachial, right; Blood Gas Sample Type Arterial; HCO3 ABG 24.4 mmol/L (22-26); Oxygen Device ROOM AIR; PO2 ABG 65.2 mmHg (80.0-100.0)
[2019-11-15 09:45] LABS: Fibrinogen 347 mg/dL (174-498)
[2019-11-15 09:48] LABS: D Dimer 0.51 ug/mIFEU (0-0.59)
[2019-11-15 09:52] LABS: NT Pro B Type Natriuretic Pept 5453 pg/mL (0-450); Procalcitonin 0.06 ng/mL (0-0.5)
[2019-11-15 10:05] LABS: Albumin Level 4.2 g/dL (3.5-5.2); Alkaline Phosphatase 95 IU/L (40-130); Anion Gap 14.2 (5-19); Aspartate Amino Transferase 39 U/L (0-40); C Reactive Protein 3.6 mg/L (0.0-4.9); Carbon Dioxide 23 mmol/L (22-29); Chloride 107 mmol/L (98-107); Creatine Phosphokinase 186 U/L (39-308); Ferritin 243 ng/mL (30-400); Globulin 2.4 g/dL (1.3-4.6); Lactate Dehydrogenase 220 U/L (135-225); Potassium 4.2 mmol/L (3.5-5.1); Sodium 140 mmol/L (136-145); Total Protein 6.6 g/dL (6.6-8.7)
[2019-11-15 10:13] LABS: Lactic Sepsis W/Reflex 1.3 mmol/L (0.5-2.2)
[2019-11-15 10:14] LABS: Influenza A by IFA Negative (Negative); Influenza B by IFA Negative (Negative)
[2019-11-15 10:27] LABS: Blood Urea Nitrogen 17 mg/dL (8-23); Calcium 8.7 mg/dL (8.5-10.5); Glucose 134 mg/dL (65-115); Magnesium 2.3 mg/dL (1.7-2.3); Osmolality Calculated 294 mOsm/kg (285-295); Total Bilirubin 0.4 mg/dL (0.15-1.2)
[2019-11-15 10:28] LABS: Alanine Aminotransferase 49 U/L (0-41)
--- NOTE | 2019-11-15 11:15 | ECG_ITS ---
[facility] Test Date: 2019-11-15 Pat Name: Thong Salgado Department: Room: Gender: Male Front Office Clerk: : 1940 Requested By: Efren Chowdhury Order Number: [id number] Enedina MD: Laith Peters M.D. Measurements Intervals [place] Rate: 81 P: [place]: -1 QRS: -73 QRSD: 190 T: 97 QT: 441 QTc: 514 Interpretive Statements ELECTRONIC VENTRICULAR PACEMAKER ABNORMAL RHYTHM ECG WARNING: DATA QUALITY MAY AFFECT INTERPRETATION Compared to ECG 02/13/2019 15:31:31 No significant changes Electronically Signed On 11-15-2019 19:20:54 CDT by Laith Peters M.D. [email or web address]
[2019-11-15 12:41] LABS: Troponin 5 2HR 30.96 ng/L (0-15)
[2019-11-15 12:53] LABS: Troponin 5 2HR Delta -4.04 ABS# (0-10)
[2019-11-15] MEDS: FUROsemide 10 mg/mL SDV 4mL 40 MG IVP ×2 (13:10→14:13)
[2019-11-15] MEDS: digoxin 250 mcg/ml INJ 2 mL 500 MCG IVP (13:11)
[2019-11-15 13:50] LABS: SARS Covid-2 Antigen Negative (Negative)
[2019-11-15 14:14] LABS: Digoxin 0.5 ng/mL (0.6-1.2)
--- NOTE | 2019-11-15 15:10 | PM.HP ---
Providers/Chief Complaint Admitting Physician: Critsin Alvarez MD Primary Care Provider: Destin Chung MD Chief Complaint: SOB History of Present Illness Thong Salgado JR is a 79 year old male past medical history of CAD status post coronary artery bypass surgery x2 in 2008, severe aortic stenosis, moderate LV dysfunction with left ventricular ejection fraction estimated at 30 to 35%, hypertension, status post permanent pacemaker placement, paroxysmal atrial fibrillation noted on pacemaker check, and dyslipidemia presented for worsening dyspnea on exertion. He usually follows up with Dr. Montes and is currently being evaluated by Dr. Mckay at [facility] for TAVR. Patient's describes worsening dyspnea on exertion for last several months that has progressively worsened over last month. Patient states that this morning he felt short of breath to the point that he did not feel he was going to make it. He complains of orthopnea and paroxysmal nocturnal dyspnea. He has been sleeping in his recliner for the past week. He denies any significant lower extremity swelling. He denies any fever chills or any sick contacts. On arrival to the ER, he was found to be in paced rhythm. Pressure on arrival was 121/77 mmHg oxygen level of 96%. X-ray showed mild pulmonary vascular congestion with bilateral small pleural effusion. Cardiomegaly with permanent pacemaker and atherosclerosis. His hemoglobin is at 11.8, platelets 301, WBC 6.8, ABG with pH 7.43, PCO2 37 and PO2 65.2. BUN 17, creatinine 0.9, magnesium 2.3, AST 39, ALT 49, baseline troponin T 35 at 120 minutes 31 and at 6-hour troponin T 36. NT proBNP 5453. Influenza a and B- and rapid SARS-CoV-2 antigen negative. He received Lasix 40 mg IV x2 and his shortness of breath has improved significantly since then. At the time of examination he was sitting comfortably in the chair and is worried about his TAVR procedure. He tells me that it has been scheduled sometime 3rd-4th week of November and he does not think he can wait that long with his symptoms. Review of Systems Const: Denies: fever(s), chills, change in appetite, change in weight, fatigue or malaise Eyes: Denies: change in vision or eye discharge ENMT: Denies: throat pain, swelling of lips/tongue, oral sores, bleeding gums, nasal congestion, epistaxis or post nasal drip Card: Reports: dyspnea on exertion and orthopnea; Denies: chest pain, palpitations, irregular heart rhythm, edema, lightheadedness, syncope or leg pain with exertion Resp: Reports: dyspnea; Denies: productive cough, wheezing or hemoptysis GI: Denies: abdominal pain, nausea, vomiting, hematemesis, heartburn, diarrhea, constipation, change in bowel habits, hematochezia or melena : Denies: dysuria, oliguria, hematuria, scrotal swelling or erectile dysfunction Musc: Denies: back pain, extremity swelling, joint pain or muscle weakness Skin/Breast: Denies: rash, erythema, new lesions or change in hair Neuro: Reports: dizziness; Denies: numbness in extremities, weakness in extremities, lack of coordination, difficulty walking, vertigo or confusion Psych: Denies: anxiety, depression, irritability, suicidal ideation or homicidal ideation Endo: Denies: tired all the time, cold intolerance or heat intolerance David/Lymph: Denies: easy bruising, easy bleeding, petechiae or purpura All/Imm: Denies: throat swelling, tongue swelling or acute wheezing Medications/Allergies Home Medications Medication Instructions Recorded Confirmed Last Taken Type ascorbic acid (vitamin C) [Vitamin 500 mg PO DAILY 02/13/19 11/15/19 11/15/19 History C] ferrous gluconate 324 mg (37.5 mg 324 mg PO DAILY tab 02/13/19 11/15/19 11/15/19 History iron) tablet glucosamine HCl 1,500 mg tablet 3,000 mg PO DAILY tab 02/13/19 11/15/19 11/15/19 History lutein 40 mg capsule 40 mg PO BID cap 02/13/19 11/15/19 11/15/19 History magnesium chloride 64 mg 64 mg PO BID tab 02/13/19 11/15/19 11/15/19 History (magnesium chloride) tablet,delayed release multivitamin,[id number] 1 tab PO QAM 02/13/19 11/15/19 11/15/19 History omega-3 fatty acids 1,000 mg 1,000 mg PO BID cap 02/13/19 11/15/19 11/15/19 History capsule vitamin B complex 1 tab PO QAM 02/13/19 11/15/19 11/15/19 History nitroglycerin 0.4 mg sublingual 0.4 mg SUBLINGUAL Q5M PRN #30 tab 05/07/19 11/15/19 Unknown Rx tablet losartan 50 mg tablet 50 mg PO DAILY #90 tab 06/03/19 11/15/19 11/14/19 Rx potassium chloride 10 mEq 20 meq PO DAILY 30 Days #30 tab 06/12/19 11/15/19 11/15/19 Rx tablet,extended release furosemide 40 mg tablet 40 mg PO DAILY 30 Days #30 tab 08/05/19 11/15/19 11/15/19 Rx isosorbide mononitrate 120 mg 120 mg PO DAILY #90 tab 09/30/19 11/15/19 11/15/19 Rx tablet,extended release 24 hr metoprolol tartrate 50 mg PO BID 30 Days #60 tab 10/04/19 11/15/19 11/15/19 Rx Eliquis 5 mg tablet 5 mg PO BID #60 tab NS 10/30/19 11/15/19 11/15/19 Rx pravastatin 20 mg tablet 20 mg PO DAILY #30 tab 10/30/19 11/15/19 11/15/19 Rx Allergies Allergy/AdvReac Type Severity Reaction Status Date / Time ciprofloxacin Allergy Unknown unknown Verified 10/11/19 10:09 Penicillins Allergy Unknown unknown Verified 10/11/19 10:09 PFSH Acute PFSH: Medical History Aortic valvar stenosis Cardiac arrhythmia Cardiomyopathy LVEF has decreased from 45% to 35% by echocardiogram. Cataract Coronary arteriosclerosis after coronary artery bypass grafting CABG x2 (OLSON to LAD and SVG to OM, 05/08/2008) Essential hypertension Mixed hyperlipidemia last lipid panel 2020: Cholesterol 93, triglycerides 78, LDL 55. Pacemaker Dual-chamber Thoracic aneurysm without mention of rupture Ascending aortic aneurysm 4.4cm by CT 07/2017 Surgical History H/O foot surgery Hx of appendectomy Hx of CABG Family History Mother Dementia Other CAD (coronary artery disease) Diabetes Hypertension Stroke Denies family history of Clotting disorder Hyperlipidemia Psychiatric illness Chronic kidney disease (CKD) Suicide Anesthesia complication Bleeding disorder Family history of premature coronary artery disease Lung disease Cancer Social History Smoking and tobacco status: never smoked Alcohol intake: never Household members: significant other Housing: House Vitals/I&O/Wt Last Vital Signs Temp 97.9 F 11/15/19 09:03 Pulse 81 11/15/19 14:57 Resp 22 H 11/15/19 14:57 BP 106/73 11/15/19 14:57 Pulse Ox 94 11/15/19 14:57 Weight last 48 hrs Weight 182 lb 6.4 oz Physical Exam Const: COMMON NORMALS: no acute distress, average body habitus, patient oriented x3, alert and well nourished GENERAL APPEARANCE: cooperative, comfortable, well kempt and well developed ORIENTATION/CONSCIOUSNESS: Yes oriented to person, Yes oriented to place and Yes oriented to time HENMT: COMMON NORMALS: normocephalic, atraumatic, hearing grossly normal bilaterally and external ears normal HEAD & SCALP: normocephalic and atraumatic FACE & SINUS: face symmetric EXTERNAL EAR: Yes external ears normal Eye: COMMON NORMALS: Equal, round and reactive pupils present, EOMs intact bilaterally and conjunctivae normal ALIGNMENT: Yes alignment normal CONJUNCTIVA: Yes conjunctivae normal SCLERA: sclerae normal PUPIL: Yes Equal, round and reactive pupils present Neck/C-Spine: COMMON NORMALS: no lymphadenopathy, supple, no JVD and Thyroid normal; negative for No carotid bruits THYROID: Thyroid normal Lymph: LYMPHATIC: No no lymphadenopathy noted Chest: COMMONS NORMALS: normal inspection of the chest CHEST: Yes Symmetrical chest wall rise and No tenderness Resp: COMMON NORMALS: normal respiratory effort, No use of accessory muscles and clear to auscultation bilaterally EFFORT & INSPECTION: Yes able to speak in complete sentences and No tachypneic AUSCULTATION: clear to auscultation bilaterally, no crackles, no rales, no rhonchi and no wheezes Cardio: COMMON NORMALS: no JVD, regular rate, regular rhythm, S1 normal heart sound present, S2 normal heart sound present and Peripheral pulses 2+ throughout; negative for No gallops present (Cardio) and negative for No clicks present (Cardio) JUGULAR VENOUS DISTENTION: no JVD PALPATION: normal PMI, no heave, no palpable S3, no palpable S4 and no thrill RATE: regular rate RHYTHM: regular rhythm HEART SOUNDS: S1 normal heart sound present, S2 abnormal, no click, no gallops, Murmur heart sound present systolic Intensity: IV/ Characteristics: harsh and Other heart sounds present (soft S2) BRUITS: no abdominal aortic bruits and no carotid bruits PERIPHERAL PULSES: Peripheral pulses 2+ throughout GI: COMMON NORMALS: Normal to inspection, nondistended, normoactive bowel sounds present, Soft to palpation and non-tender PALPATION: Yes Soft to palpation PERCUSSION: tympanic to percussion RECTAL EXAM: Yes deferred Back/Pelvis: LUMBAR SPINE/LOWER BACK: Yes normal to inspection Extremity: GENERAL: No clubbing, No cyanosis and Yes edema (trace) Neuro: COMMON NORMALS: patient oriented x3, no focal motor deficits and gait normal SENSORIUM/ORIENTATION: Yes alert, Yes oriented to person, Yes oriented to place and Yes oriented to time CRANIAL NERVES: Yes CN normal except as noted Psych: COMMON NORMALS: Normal thought process present APPEARANCE: Yes well kempt MOOD & AFFECT: Yes euthymic mood THOUGHT PROCESS: Normal thought process present THOUGHT CONTENT: Yes Normal thought content present ATTENTION/CONCENTRATION: Yes attention grossly intact MEMORY/COGNITION: Yes memory grossly intact INSIGHT: Good insight present (Psych) JUDGEMENT: Good judgement present (Psych) Skin: COMMON NORMALS: no rashes or lesions noted and no wounds Data : 11/15/19 09:15 11/15/19 09:15 Other Imaging: Radiologist's impression: ECHOCARDIOGRAPHY, COMPLETE ([id number]) 02/2019 1-Mildly increased left ventricular cavity size. Severely decreased left ventricular systolic function. Left ventricula ejection fraction is estimated at 35 %. Global left ventricular hypokinesis. Grade II/IV diastolic dysfunction, moderately elevated filling pressures. 2-Moderately thickened mitral valve. Moderate mitral annular calcification. No mitral valve stenosis. Moderate mitral valve regurgitation. 3-Severe aortic valve calcification. Severe aortic valve stenosis, mean gradient 25.2 mmHg, STEPHAN 0.76 cm squared. No aortic valve regurgitation. Possible low pressure Aortic stenosis 4-Mild pulmonary valve regurgitation. 5-There is no pericardial effusion. 6-Pulmonary artery systolic pressure is within normal limits. 7- When compared to the prior echocardiogram dated 09/19/2017 left ventricle ejection fraction has reduced from moderately depressed 46% to severely depressed 35% now. Aortic stenosi has worsened from moderately stenotic with calculated aortic valve area 1.45 cm2 and mean gradient of 14 mmHg to severel stenotic with calculated aortic valve area of 0.76 cm2 and mean gradient of 25 mmHg now. [facility] 02/2019 No significant disease noted in the Left Main, LAD, Circumflex, or RCAcoronary arteries. Coronary angiography shows right dominance. The left main is a medium caliber vessel which was found to have ahigh-grade 90% stenosis at the distal segment, involving the ostium of theleft artery descending artery and left circumflex artery. The left and descending artery is a medium caliber vessel which was found tohave around 50% lesion in the mid segment. The first diagonal branch artery was found to have 60 to 70% ostial lesion. The mid segment of the artery wasfound to have mild diffuse disease. Competitive blood flow was noted in the distal LAD. The second diagonal branch was found to have mild diffusedisease. The first septal farm crops teacher is a medium caliber vessel with no significant stenotic lesions. The left circumflex artery is a medium caliber vessel which gives off a hig obtuse marginal branch. The ostium of the circumflex artery was found to have high-grade stenosis. At the takeoff of the first obtuse marginal artery,there is high-grade lesion in the circumflex artery, involving the ostium ofthe first obtuse marginal branch. The second obtuse marginal branch isrelatively small caliber vessel with mild diffuse disease. The distalcircumflex artery gives off a large recurrent atrial branch with nosignificant stenotic lesions. Competitive blood flow was noted in the highobtuse marginal branch. The right coronary artery is a relatively large caliber vessel which was found to be ectatic in the proximal and mid segment. There is an eccentricnarrowing of around 50 to 60% in the proximal artery with haziness suggestive of possible thrombus. Diffuse calcification was noted in this segment of the artery. The PDA and the PLV branches are found to have mild diffuse disease. The saphenous venous graft to the obtuse marginal branch(high OM) was found to be widely patent. Just proximal to the distal anastomosis, there was a 70% lesion in the first obtuse marginal artery. No significant stenotic lesions were noted distal to the anastomosis. LMM STRESS ([id number]) 02/2019 1. Myocardial perfusion imaging revealing small to moderate area of severely decreased tracer uptake in the inferior wall and inferolateral region, with some reversibility in the inferolateral region, suggestive of myocardial scarring in the distribution of the right coronary /circumflex artery with a small area of ischemia in the distribution of the circumflex artery.. 2. Markedly diminished LV ejection fraction of 18%. 3. Multiple wall motion normalities as mentioned above. 4. Moderately dilated LV cavity with an end-systolic volume of 142 mL Possibly No significant coronary ischemia, based on the above findings Compared to the previous study on 06/11/2013 there may not be a significant change except for the worsening of the LV systolic function and the elevated TID ratio COMPUTED TOMOGRAPHY ANGIOGRAPHY OF ABDOMINAL AORTA ([id number]) 07/30/2016 1. Atherosclerotic cardiovascular changes and prior coronary bypass grafting. 2. Mild ectasia ascending thoracic aorta at 4.4 cm. Otherwise no evidence of an aneurysm or dissection of the thoracic aorta. 3. Remote granulomatous disease. 4. Small incidental cysts of the liver. 5. Multilevel spondylosis of the thoracic spine. 6. Prior permanent pacemaker placement. # TRE on 04 October 2019 CONCLUSIONS 1. Severe aortic valve stenosis with a valve area of 0.4 cm squared, both by planimetry and by Doppler examination(TVI, low gradient) 2. Diffuse hypokinesia of the left ventricle with an ejection fraction of 30 to 35%. 3. Mildly dilated LV cavity and moderately dilated left atrium. 4. Moderate mitral regurgitation with mild tricuspid regurgitation. Trace of aortic regurgitation 5. Intact interatrial septum. 6. No intracardiac masses. 7. Dilated ascending aorta, measuring 4.3 cm in diameter 8. No similar previous studies available for comparison A&P Assessment and plan (1) Congestive heart failure: He received Lasix 40 mg IV x2 in the ER. Continue Lasix 40 mg IV daily. -Close telemetry monitoring in intake and output charting and daily weight. -Follow-up BMP in the morning. -As blood pressure is soft running low 100-110's, ER physician decided to stop metoprolol and start on digoxin as per instructions of Dr. Mckay. -Continue losartan; metoprolol stopped. Status: Acute Qualifiers: Heart failure type: combined systolic and diastolic Heart failure chronicity: acute on chronic Qualified Code(s): I50.43 - Acute on chronic combined systolic (congestive) and diastolic (congestive) heart failure (2) Aortic valvar stenosis: Severe aortic stenosis -I spoke with Dr. Mckay and he is going to look into the possibility of moving patient's TAVR procedure sooner. -Plan to optimize him medically until then. Status: Acute Qualifiers: Cardiac valve disease etiology: nonrheumatic Qualified Code(s): I35.0 - Nonrheumatic aortic (valve) stenosis (3) Coronary arteriosclerosis after coronary artery bypass grafting: CABG x2 (OLSON to LAD and SVG to OM, 05/08/2008), -Patient is on high dose Imdur and statin. Metoprolol was stopped. Status: Acute (4) Cardiomyopathy: Status: Acute Qualifiers: Cardiomyopathy type: other Qualified Code(s): I42.8 - Other cardiomyopathies (5) Mixed hyperlipidemia: Status: Acute (6) Essential hypertension: Status: Acute (7) Pacemaker: Status: Acute Additional A&P Information Paroxysmal atrial fibrillation : Continue Eliquis for now. DVT prophylaxis: Patient already on Eliquis. Attestations Medical Necessity Statement*: Hospital stay for decompensated CHF and severe aortic stenosis Coding Level of Care Code Acute Digital Photographic Printer for Chg Fwd History Comprehensive Exam Comprehensive Medical Decision Making High Complexity Diagnoses Congestive heart failure I50.43 Heart failure type: combined systolic and diastolic Heart failure chronicity: acute on chronic Aortic valvar stenosis I35.0 Cardiac valve disease etiology: nonrheumatic Coronary arteriosclerosis after coronary artery bypass grafting I25.810 Cardiomyopathy I42.8 Cardiomyopathy type: other Mixed hyperlipidemia E78.2 Essential hypertension I10 Pacemaker Z95.0 Time Spent (min) 45
--- NOTE | 2019-11-15 15:15 | ECG_ITS ---
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 Measurements Intervals [place] Rate: 82 P: [place]: -1 QRS: -74 QRSD: 190 T: 97 QT: 436 QTc: 512 Interpretive Statements ELECTRONIC VENTRICULAR PACEMAKER ABNORMAL RHYTHM ECG Compared to ECG 11/15/2019 11:09:38 No significant changes Electronically Signed On 11-15-2019 19:16:38 CDT by Laith Peetrs M.D. [email or web address]
[2019-11-15 16:23] LABS: Troponin 5 6HR 35.76 ng/L (0-15); Troponin 5 6HR Delta 0.76 ng/L (0-12)
[2019-11-15] MEDS: digoxin 250 mcg/ml INJ 2 mL IVP (18:41)
[2019-11-15] MEDS: apixaban 5 mg Tablet PO (18:49)
[2019-11-16] VITALS (7 sets, daily range): BP systolic 101–125; BP diastolic 67–80; PULSE 80–88; RESP 18; TEMP 36.4–36.7; O2SAT 94–96
[2019-11-16 06:41] LABS: Basophils # 0.1 10^3/uL (0.0-0.1); Basophils % 0.9 %; Eosinophils # 0.2 10^3/uL (0.0-0.8); Eosinophils % 4.1 %; Hematocrit 38.8 % (42.0-52.0); Hemoglobin 12.4 g/dL (11.7-16.6); Lymphocytes # 1.1 10^3/uL (0.8-4.8); Lymphocytes % 19.8 %; Mean Corpuscular Hemoglobin 29.7 pg (28.0-34.0); Mean Platelet Volume 9.3 fL (7.4-10.4); Monocytes # 0.5 10^3/uL (0.2-0.9); Monocytes % 9.2 %; Neutrophils # 3.49 10^3/uL (1.8-7.7); Neutrophils % 65.8 %; Nucleated Red Blood Cells % 0 %; Platelet Count 288 10^3/cmm (130-400); Red Blood Count 4.17 10^6/uL (4.1-5.3); Red Cell Distribution Width 14.1 % (12.1-15.1); White Blood Count 5.3 10^3/uL (4.0-10.0)
[2019-11-16 07:22] LABS: Alanine Aminotransferase 41 U/L (0-41); Albumin Level 3.9 g/dL (3.5-5.2); Alkaline Phosphatase 98 IU/L (40-130); Anion Gap 15.8 (5-19); Aspartate Amino Transferase 27 U/L (0-40); Blood Urea Nitrogen 15 mg/dL (8-23); Calcium 9.2 mg/dL (8.5-10.5); Carbon Dioxide 24 mmol/L (22-29); Chloride 102 mmol/L (98-107); Globulin 3.1 g/dL (1.3-4.6); Glucose 113 mg/dL (65-115); Magnesium 2.2 mg/dL (1.7-2.3); Osmolality Calculated 288 mOsm/kg (285-295); Potassium 3.8 mmol/L (3.5-5.1); Sodium 138 mmol/L (136-145); Total Bilirubin 0.5 mg/dL (0.15-1.2)
[2019-11-16 08:20] LABS: Chol HDL Ratio 4.36 mg/dL (1.0-5.00); Cholesterol 96 mg/dL (0-200); HDL Cholesterol 22 mg/dL (60-100); LDL Cholesterol Calculated 57 mg/dL (50-129); LDL HDL Ratio 2.59 RATIO (0.00-3.22); Triglycerides 86 mg/dL (0-150)
[2019-11-16] MEDS: atorvastatin 40 mg Tablet 20 MG PO (09:13)
[2019-11-16] MEDS: isosorbide mononitrate ER 60 mg Tablet 120 MG PO (09:13)
[2019-11-16] MEDS: ascorbic acid 500 mg Tablet PO (09:13)
[2019-11-16] MEDS: losartan 50 mg Tablet PO (09:13)
[2019-11-16] MEDS: FUROsemide 10 mg/mL SDV 4mL 40 MG IVP (09:14)
[2019-11-16] MEDS: apixaban 5 mg Tablet PO (09:14)
[2019-11-16] MEDS: digoxin 250 mcg/ml INJ 2 mL 125 MCG IVP (09:14)
[2019-11-16] MEDS: ferrous gluconate 324 mg Tablet PO (09:14)
[2019-11-16] MEDS: potassium chloride ER 10 mEq Tablet 20 MEQ PO (09:14)
--- NOTE | 2019-11-16 09:26 | PC.NURSE ---
Iv digoxin given per order, pt's apical pulse rate auscultated at this time is 77bpm
--- NOTE | 2019-11-16 12:15 | P.DS_ITS ---
Discharge Providers Date of Admission: 11/15/19 14:35 Date of Discharge: November 16, 2019 Attending Provider at Admission: Cristin Alvarez MD Attending Provider at Discharge: Cristin Alvarez MD Primary Care Provider: Destin Chung MD Diagnoses at Discharge Discharge Diagnosis (1) Congestive heart failure: Status: Acute Qualifiers: Heart failure chronicity: acute on chronic Heart failure type: combined systolic and diastolic Qualified Code(s): I50.43 - Acute on chronic combined systolic (congestive) and diastolic (congestive) heart failure (2) Aortic valvar stenosis: Status: Acute Problem details: He is due for TAVR at [facility] Qualifiers: Cardiac valve disease etiology: nonrheumatic Qualified Code(s): I35.0 - Nonrheumatic aortic (valve) stenosis (3) Coronary arteriosclerosis after coronary artery bypass grafting: Status: Acute Problem details: CABG x2 (OLSON to LAD and SVG to OM, 05/08/2008) (4) Cardiomyopathy: Status: Acute Problem details: LVEF has decreased from 45% to 35% by echocardiogram. Qualifiers: Cardiomyopathy type: other Qualified Code(s): I42.8 - Other cardiomyopathies (5) Mixed hyperlipidemia: Status: Acute Problem details: last lipid panel 2020: Cholesterol 93, triglycerides 78, LDL 55. (6) Essential hypertension: Status: Acute (7) Pacemaker: Status: Acute Problem details: Dual-chamber (8) Atrial fibrillation: Status: Acute Reason for Visit Reason for Visit: SOB Hospital Course Hospital Course: Thong Salgado JR is a 79 year old male past medical history of CAD status post coronary artery bypass surgery x2 in 2008, severe aortic stenosis, moderate LV dysfunction with left ventricular ejection fraction estimated at 30 to 35%, hypertension, status post permanent pacemaker placement, paroxysmal atrial fibrillation noted on pacemaker check, and dyslipidemia presented for worsening dyspnea on exertion. He usually follows up with Dr. Montes and is currently being evaluated by Dr. Mckay at [facility] for TAVR. Patient's describes worsening dyspnea on exertion for last several months that has progressively worsened over last month. Patient states that this morning he felt short of breath to the point that he did not feel he was going to make it. He complains of orthopnea and paroxysmal nocturnal dyspnea. He has been sleeping in his recliner for the past week. He denies any significant lower extremity swelling. He denies any fever chills or any sick contacts. On arrival to the ER, he was found to be in paced rhythm. Pressure on arrival was 121/77 mmHg oxygen level of 96%. X-ray showed mild pulmonary vascular congestion with bilateral small pleural effusion. Cardiomegaly with permanent pacemaker and atherosclerosis. His hemoglobin is at 11.8, platelets 301, WBC 6.8, ABG with pH 7.43, PCO2 37 and PO2 65.2. BUN 17, creatinine 0.9, magnesium 2.3, AST 39, ALT 49, baseline troponin T 35 at 120 minutes 31 and at 6-hour troponin T 36. NT proBNP 5453. Influenza a and B- and rapid SARS-CoV-2 antigen negative. He received Lasix 40 mg IV x2 and his shortness of breath has improved significantly since then. At the time of examination he was sitting comfortably in the chair and is worried about his TAVR procedure. He tells me that TAVR has been scheduled sometime 3rd-4th week of November and he does not think he can wait that long with his symptoms. Patient was admitted yesterday with decompensated congestive heart failure. He responded well to IV Lasix and has lost about 4 pounds. This morning patient states that he feels much better. His appetite has returned and he was able to sleep well last night without any orthopnea or PND-like symptoms. Given his upcoming procedure he was empirically tested for COVID-19 with rapid as well as PCR and both of them are negative. Patient has had no episodes of atrial fibrillation on telemetry. Blood pressure here in the hospital has ranged from 101- 125/67-85 mmHg. Discharge Summary: He feels better than he has felt and last month. His symptoms have significantly improved and is requesting to go home. I have spoken to Dr. 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 Physical Exam Const: COMMON NORMALS: no acute distress, average body habitus, patient oriented x3, alert and well nourished GENERAL APPEARANCE: cooperative, comfortable, well kempt and well developed ORIENTATION/CONSCIOUSNESS: Yes oriented to person, Yes oriented to place and Yes oriented to time HENMT: COMMON NORMALS: normocephalic, atraumatic, hearing grossly normal bilaterally and external ears normal HEAD & SCALP: normocephalic and atraumatic FACE & SINUS: face symmetric EXTERNAL EAR: Yes external ears normal Eye: COMMON NORMALS: Equal, round and reactive pupils present, EOMs intact bi laterally and conjunctivae normal ALIGNMENT: Yes alignment normal CONJUNCTIVA: Yes conjunctivae normal SCLERA: sclerae normal PUPIL: Yes Equal, round and reactive pupils present Neck/C-Spine: COMMON NORMALS: no lymphadenopathy, supple, no JVD and Thyroid normal; negative for No carotid bruits THYROID: Thyroid normal Lymph: LYMPHATIC: No no lymphadenopathy noted Chest: COMMONS NORMALS: normal inspection of the chest CHEST: Yes Symmetrical chest wall rise and No tenderness Resp: COMMON NORMALS: normal respiratory effort, No use of accessory muscles and clear to auscultation bilaterally EFFORT & INSPECTION: Yes able to speak in complete sentences and No tachypneic AUSCULTATION: clear to auscultation bilaterally, no crackles, no rales, no rhonchi and no wheezes Cardio: COMMON NORMALS: no JVD, regular rate, regular rhythm, S1 normal heart sound present, S2 normal heart sound present and Peripheral pulses 2+ throughout; negative for No gallops present (Cardio) and negative for No clicks present (Cardio) JUGULAR VENOUS DISTENTION: no JVD PALPATION: normal PMI, no heave, no palpable S3, no palpable S4 and no thrill RATE: regular rate RHYTHM: regular rhythm HEART SOUNDS: S1 normal heart sound present, S2 normal heart sound present, no click, no gallops, Murmur heart sound present systolic and Other heart sounds present (soft S2) BRUITS: no abdominal aortic bruits and no carotid bruits PERIPHERAL PULSES: Peripheral pulses 2+ throughout GI: COMMON NORMALS: Normal to inspection, nondistended, normoactive bowel sounds present, Soft to palpation and non-tender PALPATION: Yes Soft to palpation PERCUSSION: tympanic to percussion RECTAL EXAM: Yes deferred Back/Pelvis: LUMBAR SPINE/LOWER BACK: Yes normal to inspection Extremity: GENERAL: No clubbing, No cyanosis and Yes edema (trace) Neuro: COMMON NORMALS: patient oriented x3, no focal motor deficits and gait normal SENSORIUM/ORIENTATION: Yes alert, Yes oriented to person, Yes oriented to place and Yes oriented to time CRANIAL NERVES: Yes CN normal except as noted Psych: COMMON NORMALS: Normal thought process present APPEARANCE: Yes well kempt MOOD & AFFECT: Yes euthymic mood THOUGHT PROCESS: Normal thought process present THOUGHT CONTENT: Yes Normal thought content present ATTENTION/CONCENTRATION: Yes attention grossly intact MEMORY/COGNITION: Yes memory grossly intact INSIGHT: Good insight present (Psych) JUDGEMENT: Good judgement present (Psych) Skin: COMMON NORMALS: no rashes or lesions noted and no wounds GENERAL SKIN EXAM: no rashes or lesions noted Discharge Data Data Completed and Pending: Completed Studies During Hospitalization Category Date Time Status XR chest 1V manjit ble [id number] Stat Exams 11/15/19 09:13 Completed Pending at discharge Category Date Time Status Comprehensive Met abolic Panel AM LA BS Lab 11/17/19 04:00 Ordered Comprehensive Met abolic Panel AM LA BS Lab 11/18/19 04:00 Ordered Coronavirus Lab T est PTC Stat Lab 11/15/19 09:40 Received Magnesium AM LABS Lab 11/17/19 04:00 Ordered Magnesium AM LABS Lab 11/18/19 04:00 Ordered Labs from last 24 hours 11/16/19 11/16/19 11/16/19 06:30 06:30 06:30 WBC 5.3 RBC 4.17 Hgb 12.4 Hct 38.8 L MCV 93.0 MCH 29.7 MCHC 32.0 RDW 14.1 Plt Count 288 MPV 9.3 Neut % (Auto) 65.8 Lymph % (Auto) 19.8 [place] % (Auto) 9.2 Eos % (Auto) 4.1 Baso % (Auto) 0.9 Neut # (Auto) 3.49 Lymph # (Auto) 1.1 [place] # (Auto) 0.5 Eos # (Auto) 0.2 Baso # (Auto) 0.1 Nucleated RBC % (a uto) 0 Nucleated RBCs # 0.0 Sodium 138 Potassium 3.8 Chloride 102 Carbon Dioxide 24 Anion Gap 15.8 BUN 15 Creatinine 0.9 GFR Calculation Not Reportable Glucose 113 Calculated Osmolal ity 288 Calcium 9.2 Magnesium 2.2 Total Bilirubin 0.5 AST 27 ALT 41 Alkaline Phosphata se 98 Troponin T 120 Min [place] Delta Troponin T Troponin T Hi Sens 6Hr Troponin T Hi Sens 6Hr Delta Total Protein 7.0 Albumin 3.9 Globulin 3.1 Triglycerides 86 Cholesterol 96 LDL Cholesterol, C alc 57 HDL Cholesterol 22 L LDL/HDL Ratio 2.59 Cholesterol/HDL Ra janeth 4.36 Digoxin SARS-CoV-2 Ag (Rap id) 11/15/19 11/15/19 11/15/19 15:47 13:27 13:11 WBC RBC Hgb Hct MCV MCH MCHC RDW Plt Count MPV Neut % (Auto) Lymph % (Auto) [place] % (Auto) Eos % (Auto) Baso % (Auto) Neut # (Auto) Lymph # (Auto) [place] # (Auto) Eos # (Auto) Baso # (Auto) Nucleated RBC % (a uto) Nucleated RBCs # Sodium Potassium Chloride Carbon Dioxide Anion Gap BUN Creatinine GFR Calculation Glucose Calculated Osmolal ity Calcium Magnesium Total Bilirubin AST ALT Alkaline Phosphata se Troponin T 120 Min [place] Delta Troponin T Troponin T Hi Sens 6Hr 35.76 H Troponin T Hi Sens 6Hr Delta 0.76 Total Protein Albumin Globulin Triglycerides Cholesterol LDL Cholesterol, C alc HDL Cholesterol LDL/HDL Ratio Cholesterol/HDL Ra janeth Digoxin 0.5 L SARS-CoV-2 Ag (Rap id) Negative 11/15/19 12:10 WBC RBC Hgb Hct MCV MCH MCHC RDW Plt Count MPV Neut % (Auto) Lymph % (Auto) [place] % (Auto) Eos % (Auto) Baso % (Auto) Neut # (Auto) Lymph # (Auto) [place] # (Auto) Eos # (Auto) Baso # (Auto) Nucleated RBC % (a uto) Nucleated RBCs # Sodium Potassium Chloride Carbon Dioxide Anion Gap BUN Creatinine GFR Calculation Glucose Calculated Osmolal ity Calcium Magnesium Total Bilirubin AST ALT Alkaline Phosphata se Troponin T 120 Min [place] 30.96 H Delta Troponin T -4.04 L Troponin T Hi Sens 6Hr Troponin T Hi Sens 6Hr Delta Total Protein Albumin Globulin Triglycerides Cholesterol LDL Cholesterol, C alc HDL Cholesterol LDL/HDL Ratio Cholesterol/HDL Ra janeth Digoxin SARS-CoV-2 Ag (Rap id) Vitals: Last Vital Signs Temp 97.6 F 11/16/19 11:36 Pulse 82 11/16/19 11:36 Resp 18 11/16/19 11:36 BP 101/67 11/16/19 11:36 Pulse Ox 96 11/16/19 11:36 Discharge Plan Discharge Patient Disposition: Home Condition: Stable Prescriptions: New digoxin 125 mcg (0.125 mg) tablet 125 mcg PO DAILY Qty: 30 RF: 2 Continued lutein 40 mg capsule 40 mg PO BID RF: 0 omega-3 fatty acids [Fish Oil Concentrate] 1,000 mg capsule 1,000 mg PO BID RF: 0 vitamin B complex [B Complex-Vitamin B12] Tablet 1 tab PO QAM RF: 0 ferrous gluconate 324 mg (37.5 mg iron) tablet 324 mg PO DAILY RF: 0 glucosamine HCl 1,500 mg tablet 3,000 mg PO DAILY RF: 0 magnesium chloride [Mag 64] 64 mg tablet,delayed release (DR/EC) 64 mg PO BID RF: 0 Complete Multivitamin Tablet 1 tab PO QAM RF: 0 nitroglycerin [Nitrostat] 0.4 mg tablet, sublingual 0.4 mg SUBLINGUAL Q5M PRN (Reason: Chest Pain) Qty: 30 RF: 3 losartan 50 mg tablet 50 mg PO DAILY Qty: 90 RF: 3 potassium chloride 10 mEq tablet extended release 20 meq PO DAILY 30 Days Qty: 30 RF: 3 Lasix 40 mg tablet 40 mg PO DAILY 30 Days Qty: 30 RF: 5 isosorbide mononitrate 120 mg tablet extended release 24 hr 120 mg PO DAILY Qty: 90 RF: 3 Eliquis 5 mg tablet 5 mg PO BID Qty: 60 RF: 6 pravastatin 20 mg tablet 20 mg PO DAILY Qty: 30 RF: 6 ascorbic acid (vitamin C) [Vitamin C] 500 mg Tablet 500 mg PO DAILY RF: 0 Discontinued metoprolol tartrate 50 mg tablet 50 mg PO BID 30 Days Qty: 60 RF: 5 Discharge Orders: Discharge Order (Routine); Ordered 11/16/19 Ordered By: Cristin Alvarez Other Ambulatory Orders: Digoxin (Routine) Timeframe: 1 Week Facility: [facility] - Location: Lab - Main Lab Ordered By: Cristin Alvarez Referrals: Hamzah Montes MD [Physician] - 7-10 days Destin Chung MD [Primary Care Provider] - (Please call [facility] at [phone] to schedule an appointment with Dr Kaplan next week. ) Discharge Diet: Cardiac and Low Salt Discharge Activity: Increase activity as tolerated Patient Instructions: Heart Failure (DC), Aortic Stenosis (DC) Activity Restrictions/Additional Instructions: * Check blood pressure, weight and heart rate every day. * In case you are gaining more than 3 pounds in 2 days or 5 pounds in 1 week and/or have worsening shortness of breath, you may take Lasix 20 mg that is half tablet along with potassium 10 Meq daily. * Please call back at office if systolic blood pressure is running less than 100 mmHg. * please follow-up as scheduled in heart care services. Discharge Attestations Time Spent in Discharge Care*: greater than 30 min Specific Discharge Activities: Specific discharge activities: educating patient, discussing with pcp/other providers, documenting/other paperwork and evaluating patient/reviewing data Status at Discharge: Cognitive status at discharge: cognitively intact , Behavioral status at discharge: cooperative , Functional status at discharge: independent ambulation Overall status at discharge: patient is back to baseline Quality Metrics Clinical Quality Measures During this hospital stay, did patient experience: None Coding Level of Care Code Acute Evaluation Specialist for g Fwd Exam Comprehensive Diagnoses Congestive heart failure I50.43 Heart failure chronicity: acute on chronic Heart failure type: combined systolic and diastolic Aortic valvar stenosis I35.0 Cardiac valve disease etiology: nonrheumatic Coronary arteriosclerosis after coronary artery bypass grafting I25.810 Cardiomyopathy I42.8 Cardiomyopathy type: other Mixed hyperlipidemia E78.2 Essential hypertension I10 Pacemaker Z95.0 Atrial fibrillation I48.91
[2019-11-16 16:54] LABS: Coronavirus Lab Test PTC Negative
== END 2019-11-16 14:07 | disposition home or self-care (01) | DRG 293 ==
LOC: ER 13:13 → MEDSURG 15:08
PROVIDERS: Admitting Provider Internal Medicine Cardiovascular Disease; Emergency Provider Family Medicine; PCP Family Medicine; Visit Provider Internal Medicine Cardiovascular Disease
DX: I11.0 Hypertensive heart disease with heart failure (principal); I50.43 Acute on chronic combined systolic (congestive) and diastolic (congestive) heart failure; I35.0 Nonrheumatic aortic (valve) stenosis; I42.8 Other cardiomyopathies; E78.2 Mixed hyperlipidemia; Z95.0 Presence of cardiac pacemaker; Z95.1 Presence of aortocoronary bypass graft; I48.0 Paroxysmal atrial fibrillation; Z20.828 Contact with and (suspected) exposure to other viral communicable diseases; Z79.01 Long term (current) use of anticoagulants
CPT/HCPCS: 12345; 36415; 36600; 71045; 80053; 80061; 80162; 82550; 82728; 82803; 83605; 83615; 83735; 83880; 84145; 84484; 85025; 85378; 85384; 86140; 87426; 87635; 87804; 93005; 96375; 99284; J1160; J1940

== ENCOUNTER → 2019-12-04 16:20 | Outpatient (BNVA) | payer MEDICARE, SELFPAY | PROVIDERS: PCP Family Medicine; Visit Provider Internal Medicine Cardiovascular Disease | DX: I50.43 Acute on chronic combined systolic (congestive) and diastolic (congestive) heart failure (principal); R06.02 Shortness of breath; I25.810 Atherosclerosis of coronary artery bypass graft(s) without angina pectoris; I42.8 Other cardiomyopathies; R60.9 Edema, unspecified; Z95.3 Presence of xenogenic heart valve | CPT/HCPCS: 80048; 83880 ==

== ENCOUNTER → 2019-12-19 09:58 | Outpatient (BNVA) | payer MEDICARE, SELFPAY | PROVIDERS: PCP Family Medicine; Visit Provider Internal Medicine Cardiovascular Disease | DX: I11.0 Hypertensive heart disease with heart failure (principal); I25.810 Atherosclerosis of coronary artery bypass graft(s) without angina pectoris; I50.43 Acute on chronic combined systolic (congestive) and diastolic (congestive) heart failure; I49.9 Cardiac arrhythmia, unspecified | CPT/HCPCS: 80048; 83880; 85025 ==

== ENCOUNTER → 2020-01-07 08:51 | Outpatient (BNVA) | payer MEDICARE, SELFPAY | PROVIDERS: PCP Family Medicine; Visit Provider Internal Medicine Cardiovascular Disease | DX: R60.9 Edema, unspecified (principal); I50.42 Chronic combined systolic (congestive) and diastolic (congestive) heart failure; Z95.3 Presence of xenogenic heart valve | CPT/HCPCS: 80048; 83880 ==

== ENCOUNTER → 2020-01-22 09:08 | Outpatient (BNVA) | payer MEDICARE, SELFPAY | PROVIDERS: PCP Family Medicine; Visit Provider Internal Medicine Cardiovascular Disease | DX: I11.0 Hypertensive heart disease with heart failure; I35.0 Nonrheumatic aortic (valve) stenosis; I42.8 Other cardiomyopathies; I50.42 Chronic combined systolic (congestive) and diastolic (congestive) heart failure | CPT/HCPCS: 80048; 83880 ==

== ENCOUNTER → 2020-04-06 11:33 | Outpatient (BNVA) | payer MEDICARE, SELFPAY | PROVIDERS: PCP Family Medicine; Visit Provider Internal Medicine Cardiovascular Disease | DX: I11.0 Hypertensive heart disease with heart failure (principal); I50.43 Acute on chronic combined systolic (congestive) and diastolic (congestive) heart failure; R06.02 Shortness of breath; R60.9 Edema, unspecified; Z95.3 Presence of xenogenic heart valve; I48.91 Unspecified atrial fibrillation; I25.810 Atherosclerosis of coronary artery bypass graft(s) without angina pectoris; I42.8 Other cardiomyopathies; Z95.0 Presence of cardiac pacemaker; E78.2 Mixed hyperlipidemia | CPT/HCPCS: 80048; 80076; 83880; 84550 ==

== ENCOUNTER → 2020-04-20 10:06 | Outpatient (BNVA) | payer MEDICARE, SELFPAY | PROVIDERS: PCP Family Medicine; Visit Provider Internal Medicine Cardiovascular Disease | DX: E78.2 Mixed hyperlipidemia (principal); I50.42 Chronic combined systolic (congestive) and diastolic (congestive) heart failure; R60.9 Edema, unspecified | CPT/HCPCS: 80048; 83880 ==

== ENCOUNTER → 2020-04-30 09:40 | Outpatient (BNVA) | payer MEDICARE, SELFPAY | PROVIDERS: PCP Family Medicine; Visit Provider Internal Medicine Cardiovascular Disease | DX: R60.9 Edema, unspecified (principal); I48.91 Unspecified atrial fibrillation; I50.42 Chronic combined systolic (congestive) and diastolic (congestive) heart failure; I42.8 Other cardiomyopathies | CPT/HCPCS: 80048; 83880 ==

== ENCOUNTER → 2020-05-11 11:04 | Outpatient (BNVA) | payer MEDICARE, SELFPAY | PROVIDERS: PCP Family Medicine; Visit Provider Internal Medicine Rheumatology | DX: M19.90 Unspecified osteoarthritis, unspecified site (principal); Z79.899 Other long term (current) drug therapy; Z11.59 Encounter for screening for other viral diseases; Z11.1 Encounter for screening for respiratory tuberculosis; M45.9 Ankylosing spondylitis of unspecified sites in spine; M10.9 Gout, unspecified; M17.0 Bilateral primary osteoarthritis of knee | CPT/HCPCS: 99204 ==

== ENCOUNTER → 2020-05-26 09:01 | Outpatient (BNVA) | payer MEDICARE, SELFPAY | PROVIDERS: PCP Family Medicine; Visit Provider Internal Medicine Cardiovascular Disease | DX: I25.810 Atherosclerosis of coronary artery bypass graft(s) without angina pectoris (principal); I48.91 Unspecified atrial fibrillation; I42.8 Other cardiomyopathies; I50.42 Chronic combined systolic (congestive) and diastolic (congestive) heart failure; Z79.899 Other long term (current) drug therapy | CPT/HCPCS: 80048; 83880 ==

== ENCOUNTER → 2020-06-25 10:25 | Outpatient (BNVA) | payer MEDICARE, SELFPAY | PROVIDERS: PCP Family Medicine; Visit Provider Internal Medicine Cardiovascular Disease | DX: I48.91 Unspecified atrial fibrillation (principal); I25.810 Atherosclerosis of coronary artery bypass graft(s) without angina pectoris; E78.2 Mixed hyperlipidemia; I35.0 Nonrheumatic aortic (valve) stenosis; I50.43 Acute on chronic combined systolic (congestive) and diastolic (congestive) heart failure; R60.9 Edema, unspecified; Z95.3 Presence of xenogenic heart valve; I42.8 Other cardiomyopathies; I11.0 Hypertensive heart disease with heart failure | CPT/HCPCS: 80048; 83880 ==

== ENCOUNTER → 2020-07-07 09:04 | Outpatient (BNVA) | payer MEDICARE, SELFPAY | PROVIDERS: PCP Family Medicine; Visit Provider Internal Medicine Cardiovascular Disease | DX: I42.8 Other cardiomyopathies (principal); I25.810 Atherosclerosis of coronary artery bypass graft(s) without angina pectoris; E78.2 Mixed hyperlipidemia; I48.91 Unspecified atrial fibrillation; I50.42 Chronic combined systolic (congestive) and diastolic (congestive) heart failure; Z95.3 Presence of xenogenic heart valve | CPT/HCPCS: 80048; 83880 ==

== ENCOUNTER → 2020-07-09 15:02 | Outpatient (BNVA) | payer MEDICARE, SELFPAY | PROVIDERS: PCP Family Medicine; Visit Provider Internal Medicine Rheumatology | DX: M15.9 Polyosteoarthritis, unspecified (principal); M10.9 Gout, unspecified; Z79.899 Other long term (current) drug therapy; Z95.0 Presence of cardiac pacemaker | CPT/HCPCS: 99214 ==

== ENCOUNTER → 2020-10-21 11:08 | Outpatient (BNVA) | payer MEDICARE, SELFPAY | PROVIDERS: PCP Family Medicine; Visit Provider Internal Medicine Cardiovascular Disease | DX: I50.43 Acute on chronic combined systolic (congestive) and diastolic (congestive) heart failure (principal); R06.02 Shortness of breath; R60.9 Edema, unspecified; Z95.3 Presence of xenogenic heart valve; I48.91 Unspecified atrial fibrillation; I50.42 Chronic combined systolic (congestive) and diastolic (congestive) heart failure; I25.810 Atherosclerosis of coronary artery bypass graft(s) without angina pectoris; I42.8 Other cardiomyopathies; Z95.0 Presence of cardiac pacemaker; E78.2 Mixed hyperlipidemia; I10 Essential (primary) hypertension | CPT/HCPCS: 80048; 80162; 83880 ==

== ENCOUNTER 2020-11-30 08:02 | Outpatient (CLI) | payer MEDICARE, SELFPAY ==
--- NOTE | 2020-11-30 08:00 | USCV_ITS ---
Thong Salgado Age: 80 Gender: M : 1940 Exam Date: 11/30/2020 08:46 Ordering Phys: Hamzah Montes MD ([email or web address]) Technologist: Nicole Caballero Exam Location: [facility] [place] Indication: DYSPNEA BP: 110 / 65 HR: Rhythm: Other Technical Quality: Technically difficult study MEASUREMENTS (Male / Female) Normal Values 2D ECHO LV Diastolic Diameter PLAX 4.1 cm 4.2 - 5.9 / 3.9 - 5.3 cm LV Systolic Diameter PLAX 3.0 cm IVS Diastolic Thickness 1.6 cm 0.6 - 1.0 / 0.6 - 0.9 cm IVS Systolic Thickness 2.6 cm LVPW Diastolic Thickness 1.6 cm 0.6 - 1.0 / 0.6 - 0.9 cm LVPW Systolic Thickness 2.4 cm LVOT Diameter 2.0 cm LV Ejection Fraction 2D Teich 54.7 % LA Diameter 4.3 cm LA Width 3.2 cm LA Height 5.2 cm RA Width 3.0 cm RA Height 4.2 cm Aorta at Sinotubular Diameter 2.4 cm DOPPLER AV Peak Velocity 175.7 cm/s LVOT Peak Velocity 56.0 cm/s AV Area Cont Eq vti 0.9 cm squared AV Area Cont Eq pk 1.0 cm squared MV Peak Velocity 79.0 cm/s MV Area PHT 3.2 cm squared Mitral E to A Ratio 0.8 MV E' Velocity 32.0 cm/s Mitral E to MV E' Ratio 6.1 Mitral E to LV E' Lateral Ratio 3.7 Mitral E to LV E' Septal Ratio 17.3 TV Peak E Velocity 53.0 cm/s Right Atrial Pressure 3.0 mmHg PV Peak Velocity 77.0 cm/s RV Acceleration Time 0.1 s RV Ejection Time 0.2 s RV AcT/ET 0.3 FINDINGS Left Ventricle Normal LV size with diminished ejection fraction of around 45%.mild left ventricular hypertrophy. Diffuse hypokinesia of the septum and the anteroseptal segments.Grade I/IV diastolic dysfunction (abnormal relaxation filling pattern), normal to mildly elevated filling pressures. Dyskinetic basal septal segment. Right Ventricle Pacemaker wire in the right ventricle. Normal RV size and ejection fraction Right Atrium Pacemaker wire in the right atrium Left Atrium The left atrium is normal in size. Mitral Valve Thickened mitral valve. Mild mitral annular calcification. Aortic Valve The bioprosthetic valve the aortic position appears to be well- seated. Velocity of the aortic valve is 1.82 m/s with a peak gradient of 13 and a mean gradient of 8 mmHg. Valve area was calculated to be 1.0 cm squared Tricuspid Valve Mild tricuspid valve regurgitation. Pulmonic Valve Pulmonic valve not well visualized. Pericardium No pericardial effusion. Aorta Normal aortic annulus size. CONCLUSIONS Normal LV size with diminished ejection fraction of around 45%.mild left ventricular hypertrophy. Diffuse hypokinesia of the septum and the anteroseptal segments.Grade I/IV diastolic dysfunction (abnormal relaxation filling pattern), normal to mildly elevated filling pressures. Dyskinetic basal septal segment. The bioprosthetic valve the aortic position appears to be well- seated. Velocity of the aortic valve is 1.82 m/s with a peak gradient of 13 and a mean gradient of 8 mmHg. Valve area was calculated to be 1.0 cm squared. Thickened mitral valve. Mild mitral annular calcification. Mild tricuspid valve regurgitation. Thickened mitral valve. Mild mitral annular calcification. The PA pressure could not be calculated because of the poor Doppler signals Compared to the study from 02/07/2019, the aortic valve replacement appears to be new Dr Hamzah Montes MD [facility] (Electronically Signed) Final Date: 30 November 2020 23:35 S
== END 2020-11-30 08:03 | disposition home or self-care (01) ==
LOC: RAD 08:09
PROVIDERS: PCP Family Medicine; Visit Provider Internal Medicine Cardiovascular Disease
DX: R06.00 Dyspnea, unspecified (principal); I42.8 Other cardiomyopathies; Z95.0 Presence of cardiac pacemaker; Z95.2 Presence of prosthetic heart valve; I05.9 Rheumatic mitral valve disease, unspecified
CPT/HCPCS: 93306

== ENCOUNTER 2021-04-06 10:56 | Outpatient (CLI) | payer MEDICARE, SELFPAY ==
--- NOTE | 2021-04-06 11:07 | CT_ITS ---
WS: [id number] CT ANGIOGRAM CEREBRAL ARTERIES HISTORY: SLURRED SPEECH/TIA TECHNIQUE: Pre and postcontrast imaging through the brain. CT angiogram is performed of the cerebral arteries. During arterial injection imaging is obtained from the skull vertex to the skull base in 1. 25 mm imaging. Coronal and sagittal reformats are submitted. Additional multi planar reformats of the cerebral arteries are submitted, MIP imaging also reviewed. All CT scans at [facility] use at least one of these dose optimization techniques: automated exposure control; mA and/or kV adjustme nt per patient size (includes targeted exams where dose is matched to clinical indication); or iterat aminta reconstruction. CONTRAST: Omnipaque 350; 95 mL IV. DLP: 2557.18 mGy-cm. COMPARISON: None available. Noncontrast head CT was first performed. There is bilateral moderate cerebral atrophy and cerebellar atrophy with mild chronic microvascular ischemic changes. Mild bilateral cerebellar atrophy. No intra cranial hemorrhage. Intracranial vertebral arteries: There is heavy calcification in the distal vertebral arteries. Contr ast opacification is difficult to visualize with this amount of calcification. Suspect there could be areas of high-grade stenosis or even occlusion. Basilar artery: Basilar artery is intact. Intracranial Internal carotid arteries: Heavily calcified plaque in the intracranial carotid arteries . There is at least 50-60% stenosis and probably greater in the supraclinoid carotid arteries. Middle cerebral arteries: Middle cerebral arteries are both patent with the LEFT being slightly small er and size. No thrombus or occlusion. The LEFT M2 segment is smaller than the RIGHT. Anterior cerebral arteries and ACOM: Moderately hypoplastic LEFT A1 segment. Anterior communicating a rtery and A2 segments are normal. Posterior cerebral arteries and PCOM's: Very small caliber LEFT posterior cerebral artery. No occlusi ons or thrombus. Dural venous sinuses are normally enhancing. Mastoid air cells: Normal. Paranasal sinuses: Normal. Calvarium: Normal. CT/CT angio head [id number] IMPRESSION: 1. No acute intracranial hemorrhage. 2. No subacute infarct identified. 3. There is significant atherosclerotic plaque in the anterior and posterior c irculation. Very heavily calcified plaque in the vertebral arteries and through the intracranial carotid arteries. Multifocal areas of high-grade stenosis. Po ssible occlusion in the RIGHT vertebral artery. 4. No areas of thrombus or acute occlusion identified. Notified Destin Chung MD at 04/06/2021 12:36 PM. Unable to contact Dr. Chung at this time as he is out of the office. Patient sent to follow up at [facility].
[2021-04-06] MEDS: iohexol 350 mg/mL 100 mL Btl IV (12:12)
== END 2021-04-06 10:57 | disposition home or self-care (01) ==
LOC: RAD 11:01
PROVIDERS: PCP Family Medicine; Visit Provider Family Medicine
DX: R47.81 Slurred speech (principal); G45.9 Transient cerebral ischemic attack, unspecified
CPT/HCPCS: 70496

== ENCOUNTER → 2021-04-09 08:41 | Outpatient (BNVA) | payer MEDICARE, SELFPAY | PROVIDERS: PCP Family Medicine; Visit Provider Internal Medicine Cardiovascular Disease | DX: Z95.0 Presence of cardiac pacemaker (principal) | CPT/HCPCS: 93280 ==

== ENCOUNTER → 2021-04-12 11:47 | Outpatient (BNVA) | payer MEDICARE, SELFPAY | PROVIDERS: PCP Family Medicine; Visit Provider Internal Medicine Cardiovascular Disease | DX: I42.9 Cardiomyopathy, unspecified (principal); I63.9 Cerebral infarction, unspecified; Z95.0 Presence of cardiac pacemaker; E78.2 Mixed hyperlipidemia; I25.810 Atherosclerosis of coronary artery bypass graft(s) without angina pectoris; I11.0 Hypertensive heart disease with heart failure; I50.9 Heart failure, unspecified; I48.91 Unspecified atrial fibrillation; Z79.01 Long term (current) use of anticoagulants; Z79.82 Long term (current) use of aspirin | CPT/HCPCS: 99214 ==

== ENCOUNTER → 2021-04-29 09:26 | Outpatient (BNVA) | payer MEDICARE, SELFPAY | PROVIDERS: PCP Family Medicine; Visit Provider Internal Medicine Rheumatology | DX: M05.79 Rheumatoid arthritis with rheumatoid factor of multiple sites without organ or systems involvement (principal); M10.9 Gout, unspecified; M17.0 Bilateral primary osteoarthritis of knee; Z79.899 Other long term (current) drug therapy; Z95.0 Presence of cardiac pacemaker; Z71.89 Other specified counseling | CPT/HCPCS: 99214 ==

== ENCOUNTER 2021-07-08 08:34 | Outpatient (CLI) | payer MEDICARE, SELFPAY ==
--- NOTE | 2021-07-08 08:30 | USCV_ITS ---
Thong Salgado Age: 81 Gender: M : 1940 Exam Date: 07/08/2021 08:51 Ordering Phys: Hamzah Montes MD ([email or web address]) Technologist: Christiano Cueto Exam Location: [facility] [place] Indication: CVA BP: 120 / 74 HR: Rhythm: Sinus Technical Quality: Technically difficult study MEASUREMENTS (Male / Female) Normal Values 2D ECHO LV Diastolic Diameter PLAX 4.8 cm 4.2 - 5.9 / 3.9 - 5.3 cm LV Systolic Diameter PLAX 3.9 cm IVS Diastolic Thickness 0.8 cm 0.6 - 1.0 / 0.6 - 0.9 cm IVS Systolic Thickness 1.3 cm LVPW Diastolic Thickness 1.3 cm 0.6 - 1.0 / 0.6 - 0.9 cm LVPW Systolic Thickness 1.3 cm LVOT Diameter 2.0 cm LV Ejection Fraction 2D Teich 37.6 % LV Ejection Fraction MOD 2C 34.4 % LV Ejection Fraction 2C AL 38.3 % LA Diameter 4.1 cm LA Width 3.9 cm LA Height 4.7 cm RA Width 3.2 cm RA Height 4.5 cm Aorta at Sinotubular Diameter 2.6 cm IVC Diameter 1.3 cm M-MODE MV E Point Septal Separation 0.8 cm DOPPLER AV Peak Velocity 186.7 cm/s LVOT Peak Velocity 75.0 cm/s AV Area Cont Eq vti 1.1 cm squared AV Area Cont Eq pk 1.3 cm squared MV Peak Velocity 110.0 cm/s TR Peak Velocity 167.7 cm/s TR Peak Gradient 11.2 mmHg TR Mean Velocity 133.9 cm/s TR Mean Gradient 7.5 mmHg TR Velocity Time Integral 46.9 cm Right Atrial Pressure 3.0 mmHg Pulmonary Artery Systolic Pressu 14.2 mmHg RV Acceleration Time 0.1 s RV Ejection Time 0.2 s RV AcT/ET 0.5 FINDINGS Left Ventricle Mild left ventricular hypertrophy. Diffuse hypokinesia of the septum and inferior wall segments. Dyskinetic basal septal segment overall LV ejection fraction of 38%.Grade I/IV diastolic dysfunction (abnormal relaxation filling pattern), normal to mildly elevated filling pressures. Right Ventricle Catheter/pacemaker wire in the right ventricular cavity. Right Atrium Catheter/pacemaker wire in the right atrial cavity. Left Atrium Mildly increased left atrial size. Mitral Valve Thickened mitral valve. Mild mitral annular calcification. Mild mitral valve regurgitation. Aortic Valve The bioprosthetic valve at the aortic position appears to be well-seated Tricuspid Valve Trace tricuspid valve regurgitation. Pulmonic Valve Mild pulmonary valve regurgitation. Pericardium No pericardial effusion. Aorta Normal aortic annulus size. IVC Normal IVC dimension CONCLUSIONS Mild left ventricular hypertrophy. Diffuse hypokinesia of the septum and inferior wall segments. Dyskinetic basal septal segment. Overall LV ejection fraction of 38%. Grade I/IV diastolic dysfunction (abnormal relaxation filling pattern), normal to mildly elevated filling pressures. Mildly increased left atrial size. Thickened mitral valve. Mild mitral annular calcification. Mild mitral valve regurgitation. Mild pulmonary valve regurgitation. The bioprosthetic valve at the aortic position appears to be well-seated. The peak velocity across the bioprosthetic aortic valve was found to be 1.87 m/s Estimated pulmonary artery peak systolic pressure was 14 mmHg There are no intracardiac masses. There is no pericardial effusion. Compared to the study from 11/30/2020, there is some worsening of the LV systolic function Dr Hamzah Montes MD [facility] (Electronically Signed) Final Date: 10 July 2021 01:13 S
== END 2021-07-08 08:35 | disposition home or self-care (01) ==
PROVIDERS: PCP Family Medicine; Visit Provider Internal Medicine Cardiovascular Disease
DX: I63.9 Cerebral infarction, unspecified (principal)
CPT/HCPCS: 93306

== ENCOUNTER → 2021-07-09 08:45 | Outpatient (BNVA) | payer MEDICARE, SELFPAY | PROVIDERS: PCP Family Medicine; Visit Provider Internal Medicine Cardiovascular Disease | DX: Z45.010 Encounter for checking and testing of cardiac pacemaker pulse generator [battery] (principal) | CPT/HCPCS: 93280 ==

== ENCOUNTER → 2021-08-23 13:36 | Outpatient (BNVA) | payer MEDICARE, SELFPAY | PROVIDERS: PCP Family Medicine; Visit Provider Internal Medicine Rheumatology | DX: M05.79 Rheumatoid arthritis with rheumatoid factor of multiple sites without organ or systems involvement (principal); M10.9 Gout, unspecified; M17.0 Bilateral primary osteoarthritis of knee; Z79.899 Other long term (current) drug therapy; Z95.0 Presence of cardiac pacemaker; Z71.89 Other specified counseling | CPT/HCPCS: 99214 ==

== ENCOUNTER → 2021-10-08 10:08 | Outpatient (BNVA) | payer MEDICARE, SELFPAY | PROVIDERS: PCP Family Medicine; Visit Provider Internal Medicine Cardiovascular Disease | DX: Z45.010 Encounter for checking and testing of cardiac pacemaker pulse generator [battery] (principal) | CPT/HCPCS: 93280 ==

== ENCOUNTER → 2021-11-12 09:03 | Outpatient (BNVA) | payer MEDICARE, SELFPAY | PROVIDERS: PCP Family Medicine; Visit Provider Internal Medicine Cardiovascular Disease | DX: Z45.010 Encounter for checking and testing of cardiac pacemaker pulse generator [battery] (principal) | CPT/HCPCS: 93279 ==

== ENCOUNTER → 2021-11-15 11:15 | Outpatient (BNVA) | payer MEDICARE, SELFPAY | PROVIDERS: PCP Family Medicine; Visit Provider Internal Medicine Cardiovascular Disease | DX: I42.8 Other cardiomyopathies (principal); Z95.0 Presence of cardiac pacemaker; I25.810 Atherosclerosis of coronary artery bypass graft(s) without angina pectoris; E78.2 Mixed hyperlipidemia; I63.9 Cerebral infarction, unspecified; R60.9 Edema, unspecified; Z95.3 Presence of xenogenic heart valve; I48.19 Other persistent atrial fibrillation; I50.42 Chronic combined systolic (congestive) and diastolic (congestive) heart failure | CPT/HCPCS: 36415; 80048; 85025; 85610; 86850; 86900; 99214 ==

== ENCOUNTER 2021-11-17 07:27 | Outpatient (CLI) | payer MEDICARE, SELFPAY ==
[2021-11-17] VITALS (28 sets, daily range): BP systolic 94–133; BP diastolic 63–76; PULSE 72–84; RESP 15–34; TEMP 36.4; O2SAT 93–96; BMI 28.4
--- NOTE | 2021-11-17 08:19 | W.PM.OPSUD ---
Surgery/Procedure H&P Update DATE OF PROCEDURE: November 17, 2021 DATE H&P PERFORMED: 10/04/19 H&P UPDATE INFORMATION: I have reviewed H&P completed within last 30 days, I have examined patient prior to procedure and No changes to prior documentation PREOP DIAGNOSIS: PPM MIL PRIMARY INDICATION FOR PROCEDURE: Elective replacement indication for the pacemaker. Symptomatic bradycardia/ Afib/CHF/L V dysfunction PLANNED PROCEDURE: Operation Date: 11/17/21 08:30 Proposed Procedures p Pacemaker Generator Change 28973,Z45.010(Not Applicable) - Hamzah Montes MD PATIENT REASSESSED PRIOR TO SEDATION, WITH NO CHANGE NOTED: Yes PHYSICAL EXAM: alert, oriented x 3, clear to auscultation bilaterally and regular rate & rhythm AIRWAY EVAL/ANESTHESIA PLAN: normal airway, see other exam findings, ASA III, Monitored Anesthesia, Local Anesthesia, Risks, benefits & alternatives of sedation and/or procedure discussed and Patient agrees to continue as planned
--- NOTE | 2021-11-17 09:34 | P.OP_ITS ---
Operative Report Date of procedure: November 17, 2021 Pre-op diagnosis: Preop Diagnosis PPM MIL Procedure: PROCEDURE: PACEMAKER REVISION PREOPERATIVE DIAGNOSIS: Pacemaker elective replacement indication. POSTOPERATIVE DIAGNOSIS: Pacemaker elective replacement indication. ESTIMATED BLOOD LOSS: Around 5 milliliters. COMPLICATIONS: None. BRIEF HISTORY: The patient is 81-year-old white male who had a permanent pacemaker implantation for symptomatic bradycardia/atrial fibrillation. The patient was found to have elective replacement indication, during routine office followup evaluation. For further management of patient's condition for the [symptomatic bradycardia], the patient required a pacemaker revision. Patient required a dual-chamber pacemaker for symptom relief and the need for AV synchrony The procedure was explained to the patient and in detail with the risks and benefits. The risks of bleeding, hematoma, vascular injury, infection and other concomitant complications were explained in detail, which the patient understood well and consented to proceed. PROCEDURES PERFORMED: 1. Explantation of the old pacemaker generator. 2. Implantation of the new generator. The patient brought to the Cardiac Sales Operations Coordinator. The left side of the neck and the subclavian area were cleaned and draped in a sterile fashion. 1% Xylocaine was used for local anesthetic agent. A 2 inch long incision was made just below the previous pacemaker scar. By sharp and blunt dissection, the pacemaker pocket was accessed. The old generator was delivered from the pocket. The generator was detached from the lead. The new Medtronic generator was attached to the lead. The pacemaker pocket was copiously irrigated with vancomycin solution. Complete hemostasis was achieved. The lead was positioned behind the generator the generator was inserted in an antibiotic sleeve TYRX. Sponge counts were conf irmed. The pacemaker pocket was closed in layers. Skin was approximated using 4- 0 Vicryl. EXPLANTED DEVICE: Pacemaker Generator: Brand: Sensia . Model number: [id number]. Serial number: [id number]. Date of implant: 09/16/2013 IMPLANTED DEVICES: Ventricular Lead: Date of implantation: 04/12/2004 Model number: [id number] Serial number: [id number] Make: [Medtronic]. Atrial lead Date of implantation: 04/12/2004 Model number: [id number] Serial number: [id number] Make: [Medtronic]. Implanted Generator: Date of implantation : 11/17/2021 Brand: Mercygiacomo Leos. Model number: [id number] Serial number: [id number] Make: [Medtronic] TYRX REF [id number] Stimulation Threshold: The ventricular sensing was not obtained because of the pacer dependency . Ventricular lead impedance was 437 ohms and the pacing threshold was 0.5 volts at 0.4 milliseconds. The atrial sensing was 5.3 millivolts. Atrial lead impedance was 646 ohms and the pacing threshold was noted,snce the patient was in atrial flutter . The pacemaker was set for [DDDR] mode with an upper rate of [130] and a lower rate of [80]. The mode switch was turned on A pressure dressing was applied over the pacemaker site. The patient was transferred back to medical floor in stable condition. Sponge counts were correct.
--- NOTE | 2021-11-17 09:45 | SUR.PHASEII ---
POST CATH NOTE Patient to CPRU for extended recovery. Planned d/c later today if no issues to access site. Dressing to left upper chest- status post pacemaker change out. Rhythm- paced rhythm. VSS. No bleeding or hematoma noted. Post op instuctions given- verbalized understanding. Informed to call for needs.
--- NOTE | 2021-11-17 09:59 | SUR.PHASEII ---
POST CATH FLUIDS 0.9% NS AT 75 ML/HR CONTINUED FROM OR- SAME RATE.
--- NOTE | 2021-11-17 11:38 | SUR.PHASEII ---
PACEMAKER INSERTION SITE No change in assessment to site. Free of hematoma. Informed to call for needs.
--- NOTE | 2021-11-17 12:45 | SUR.PHASEII ---
MD DISCUSSION MD CAME BY TO DISCUSS FINDINGS/PROCEDURE WITH THE PATIENT.
[2021-11-17] MEDS: clindamycin 900 MG/50 ML PREMIX 100 MG IV (15:00)
--- NOTE | 2021-11-17 15:23 | SUR.PHASEII ---
Occupational therapy in room to discuss sling application and appropriate use. Questions asked and answered.
== END 2021-11-17 16:09 | disposition home or self-care (01) ==
PROVIDERS: PCP Family Medicine; Visit Provider Internal Medicine Cardiovascular Disease
DX: Z45.010 Encounter for checking and testing of cardiac pacemaker pulse generator [battery] (principal)
CPT/HCPCS: 33213; 36415; 87070; 87176; 87205; 96360; 96361; 97165; 99152; 99153; C1769; C1786; J2250; J3010; J7030; J7050

== ENCOUNTER → 2021-11-24 13:40 | Outpatient (BNVA) | payer MEDICARE, SELFPAY | PROVIDERS: PCP Family Medicine; Visit Provider Nurse Practitioner Family | DX: Z95.0 Presence of cardiac pacemaker (principal); T82.7XXA Infection and inflammatory reaction due to other cardiac and vascular devices, implants and grafts, initial encounter | CPT/HCPCS: 93280; 99214 ==

== ENCOUNTER → 2021-11-26 09:22 | Outpatient (BNVA) | payer MEDICARE, SELFPAY | PROVIDERS: PCP Family Medicine; Visit Provider Nurse Practitioner Family | DX: T82.7XXD Infection and inflammatory reaction due to other cardiac and vascular devices, implants and grafts, subsequent encounter (principal); Z95.0 Presence of cardiac pacemaker | CPT/HCPCS: 99212 ==

== ENCOUNTER → 2022-05-16 09:11 | Outpatient (BNVA) | payer MEDICARE, SELFPAY | PROVIDERS: PCP Family Medicine; Visit Provider Internal Medicine Rheumatology | DX: M05.79 Rheumatoid arthritis with rheumatoid factor of multiple sites without organ or systems involvement (principal); Z79.899 Other long term (current) drug therapy; Z71.89 Other specified counseling; M10.9 Gout, unspecified | CPT/HCPCS: 99214 ==

== ENCOUNTER → 2022-05-30 10:01 | Outpatient (BNVA) | payer MEDICARE, SELFPAY | PROVIDERS: PCP Family Medicine; Visit Provider Internal Medicine Cardiovascular Disease | DX: I25.810 Atherosclerosis of coronary artery bypass graft(s) without angina pectoris (principal); E78.2 Mixed hyperlipidemia; Z95.0 Presence of cardiac pacemaker; I11.0 Hypertensive heart disease with heart failure; I50.42 Chronic combined systolic (congestive) and diastolic (congestive) heart failure; I48.19 Other persistent atrial fibrillation; Z79.01 Long term (current) use of anticoagulants; Z95.3 Presence of xenogenic heart valve | CPT/HCPCS: 99214 ==

== ENCOUNTER 2022-07-01 15:03 | Outpatient (CLI) | payer MEDICARE, SELFPAY ==
--- NOTE | 2022-07-01 15:15 | USCV_ITS ---
NaomiThong Age: 82 Gender: M : 1940 Exam Date: 07/01/2022 15:29 Ordering Phys: Hazmah Montes MD ([email or web address]) Technologist: Danielle Chambers [place] [facility] [place]: presence of xenogenic heart valve BP: 108 / 68 HR: 79 Rhythm: Other Technical Quality: Adequate MEASUREMENTS (Male / Female) Normal Values 2D ECHO LV Diastolic Diameter PLAX 4.9 cm 4.2 - 5.9 / 3.9 - 5.3 cm LV Systolic Diameter PLAX 3.8 cm IVS Diastolic Thickness 1.8 cm 0.6 - 1.0 / 0.6 - 0.9 cm IVS Systolic Thickness 1.7 cm LVPW Diastolic Thickness 1.3 cm 0.6 - 1.0 / 0.6 - 0.9 cm LVPW Systolic Thickness 1.5 cm LVOT Diameter 2.1 cm LV Ejection Fraction 2D Teich 34.4 % LV Ejection Fraction MOD 2C 56.6 % LV Ejection Fraction 2C AL 60.2 % LA Diameter 5.3 cm LA Width 3.1 cm LA Height 6.2 cm RA Width 5.0 cm RA Height 4.9 cm Aorta at Sinotubular Diameter 4.1 cm IVC Diameter 1.8 cm M-MODE LV Diastolic Diameter MM 5.8 cm 4.2 - 5.9 / 3.9 - 5.3 cm LV Systolic Diameter MM 4.9 cm LV Ejection Fraction MM Teich 33.4 % Aortic Annulus Diameter 3.0 cm LA Ao Ratio MM 1.7 MV E Point Septal Separation 1.1 cm DOPPLER AV Peak Velocity 112.0 cm/s LVOT Peak Velocity 72.0 cm/s AV Area Cont Eq vti 2.2 cm squared AV Area Cont Eq pk 2.1 cm squared MV Area PHT 5.0 cm squared Mitral E to A Ratio 3.2 MV E' Velocity 42.5 cm/s Mitral E to MV E' Ratio 11.6 Mitral E to LV E' Lateral Ratio 9.9 Mitral E to LV E' Septal Ratio 14.1 TR Peak Velocity 252.7 cm/s TR Peak Gradient 25.5 mmHg Right Atrial Pressure 5.0 mmHg Pulmonary Artery Systolic Pressu 30.5 mmHg PV Peak Velocity 80.0 cm/s RV Acceleration Time 0.1 s RV Ejection Time 0.2 s RV AcT/ET 0.3 FINDINGS Left Ventricle Left ventricle is normal in size. LV systolic function moderately reduced EF of 35 to 40%. Moderate global hypokinesis seen. Right Ventricle Normal in size and function Right Atrium Normal in size Left Atrium Normal in size Mitral Valve Moderate mitral annular calcification is seen. Mild mitral regurgitation Aortic Valve Possible bioprosthetic aortic valve. No significant stenosis. Mild aortic regurgitation. Tricuspid Valve Trace tricuspid regurgitation. Insufficient TR jet to evaluate RVSP. Pulmonic Valve Not well-visualized Pericardium Normal Aorta Ascending aorta is mildly dilated with diameter of 3.8 cm IVC Appears to be normal CONCLUSIONS LV surface is moderately reduced with EF of 35 to 40%. Moderate global hypokinesis Mild mitral regurgitation Possible bioprosthetic aortic valve. Mild aortic regurgitation. Trace tricuspid regurgitation Ascending aorta is mildly dilated Compared to prior echocardiogram from 07/08/2021, ascending aorta is mildly dilated now. Otherwise unchanged. Laith Peters MD (Electronically Signed) Final Date: 16 July 2022 12:49 S
== END 2022-07-01 15:04 | disposition home or self-care (01) ==
LOC: RAD 15:05
PROVIDERS: PCP Family Medicine; Visit Provider Internal Medicine Cardiovascular Disease
DX: R06.02 Shortness of breath (principal); Z95.3 Presence of xenogenic heart valve; I34.0 Nonrheumatic mitral (valve) insufficiency; I35.1 Nonrheumatic aortic (valve) insufficiency; I71.21 Aneurysm of the ascending aorta, without rupture; R53.83 Other fatigue
CPT/HCPCS: 93306; 99214

== ENCOUNTER → 2022-08-31 10:01 | Outpatient (BNVA) | payer MEDICARE, SELFPAY | PROVIDERS: PCP Family Medicine; Visit Provider Internal Medicine Cardiovascular Disease | DX: Z45.010 Encounter for checking and testing of cardiac pacemaker pulse generator [battery] (principal) | CPT/HCPCS: 93296 ==

== ENCOUNTER → 2022-10-06 09:21 | Outpatient (BNVA) | payer MEDICARE, SELFPAY | PROVIDERS: PCP Family Medicine; Visit Provider Internal Medicine Rheumatology | DX: M05.79 Rheumatoid arthritis with rheumatoid factor of multiple sites without organ or systems involvement (principal); Z79.899 Other long term (current) drug therapy; M10.9 Gout, unspecified; Z71.89 Other specified counseling | CPT/HCPCS: 99214 ==

== ENCOUNTER → 2022-11-02 13:18 | Outpatient (BNVA) | payer MEDICARE, SELFPAY | PROVIDERS: PCP Family Medicine; Visit Provider Dermatology | DX: L82.1 Other seborrheic keratosis (principal); L81.4 Other melanin hyperpigmentation; D18.01 Hemangioma of skin and subcutaneous tissue; Z08 Encounter for follow-up examination after completed treatment for malignant neoplasm; Z85.828 Personal history of other malignant neoplasm of skin; L57.0 Actinic keratosis | CPT/HCPCS: 17000; 99213 ==

== ENCOUNTER → 2022-12-15 11:51 | Outpatient (BNVA) | payer MEDICARE, SELFPAY | PROVIDERS: PCP Family Medicine; Visit Provider Internal Medicine Cardiovascular Disease | DX: I25.810 Atherosclerosis of coronary artery bypass graft(s) without angina pectoris (principal); I11.0 Hypertensive heart disease with heart failure; I50.42 Chronic combined systolic (congestive) and diastolic (congestive) heart failure; E78.2 Mixed hyperlipidemia; Z95.0 Presence of cardiac pacemaker; I48.19 Other persistent atrial fibrillation; Z79.01 Long term (current) use of anticoagulants; Z95.3 Presence of xenogenic heart valve | CPT/HCPCS: 99214 ==

== ENCOUNTER → 2022-12-16 10:47 | Outpatient (BNVA) | payer MEDICARE, SELFPAY | PROVIDERS: PCP Family Medicine; Visit Provider Internal Medicine Cardiovascular Disease | DX: Z45.010 Encounter for checking and testing of cardiac pacemaker pulse generator [battery] (principal) | CPT/HCPCS: 93296 ==

== ENCOUNTER → 2023-03-22 09:13 | Outpatient (BNVA) | payer MEDICARE, SELFPAY | PROVIDERS: PCP Family Medicine; Visit Provider Internal Medicine Rheumatology | DX: Z79.899 Other long term (current) drug therapy (principal); M10.9 Gout, unspecified; M05.79 Rheumatoid arthritis with rheumatoid factor of multiple sites without organ or systems involvement; Z71.89 Other specified counseling | CPT/HCPCS: 99214 ==

== ENCOUNTER → 2023-05-03 13:14 | Outpatient (BNVA) | payer MEDICARE, SELFPAY | PROVIDERS: PCP Family Medicine; Visit Provider Dermatology | DX: L81.4 Other melanin hyperpigmentation (principal); L57.8 Other skin changes due to chronic exposure to nonionizing radiation; L98.8 Other specified disorders of the skin and subcutaneous tissue; L57.0 Actinic keratosis; D18.01 Hemangioma of skin and subcutaneous tissue; Z85.828 Personal history of other malignant neoplasm of skin | CPT/HCPCS: 17000; 99213 ==

== ENCOUNTER → 2023-05-31 15:58 | Outpatient (BNVA) | payer MEDICARE, SELFPAY | PROVIDERS: PCP Family Medicine; Visit Provider Internal Medicine Cardiovascular Disease | DX: I25.10 Atherosclerotic heart disease of native coronary artery without angina pectoris (principal); I10 Essential (primary) hypertension; E78.2 Mixed hyperlipidemia; Z95.0 Presence of cardiac pacemaker; I42.8 Other cardiomyopathies; I48.19 Other persistent atrial fibrillation | CPT/HCPCS: 99214 ==

== ENCOUNTER 2023-06-20 17:45 | Observation (INO) | payer MEDICARE, SELFPAY ==
--- NOTE | 2023-06-20 17:47 | ECG_ITS ---
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 Measurements Intervals [place] Rate: 78 P: 0 AR: 0 QRS: -82 QRSD: 193 T: 99 QT: 440 QTc: 504 Interpretive Statements ELECTRONIC VENTRICULAR PACEMAKER Compared to ECG 11/15/2019 15:04:18 No significant changes Electronically Signed On 06-21-2023 16:25:52 CDT by Laith Peters M.D. [email or web address]
[2023-06-20 17:48] VITALS: BP 123/69; PULSE 81; RESP 14; TEMP 37.8; O2SAT 94; BMI 27.8
--- NOTE | 2023-06-20 18:19 | ED_ITS ---
HPI - Weakness 2 General: Chief complaint: Weakness Stated complaint: Weakness Time Seen by Provider: 06/20/23 17:47 Source: patient Mode of arrival: EMS History of Present Illness: 83-year-old male presents emergency room via EMS with complaints of weakness. He participated in physical therapy earlier today got very weak and then doubling down his kitchen floor EMS was called. MD Complaint: generalized weakness Associated symptoms: Reports fever(s); Denies chest pain, chills, dysuria, nausea or vomiting Review of Systems 2 Const: Reports: fever(s), fatigue and malaise; Denies: chills Card: Denies: chest pain Resp: Denies: dyspnea GI: Denies: abdominal pain, nausea or vomiting : Denies: flank pain, dysuria, urinary frequency or urinary urgency Musc: Denies: neck pain or back pain Skin/Breast: Denies: rash PFSH ED 2 PFSH: Medical History History of nonmelanoma skin cancer Gout COVID-19 vaccine administered Macular degeneration Seropositive rheumatoid arthritis of multiple sites Immunization counseling High risk medication use Osteoarthritis of knees, bilateral Inflammatory arthritis Gout, arthritis Edema, peripheral Coronary arteriosclerosis after coronary artery bypass grafting CABG x2 (OLSON to LAD and SVG to OM, 05/08/2008) Cardiomyopathy LVEF has decreased from 45% to 35% by echocardiogram. Aortic valvar stenosis He is due for TAVR at [facility] Cataract Cardiac arrhythmia Pacemaker Dual-chamber Mixed hyperlipidemia last lipid panel 2020: Cholesterol 93, triglycerides 78, LDL 55. Thoracic aneurysm without mention of rupture Ascending aortic aneurysm 4.4cm by CT 07/2017 Essential hypertension Surgical History History of surgical removal of ganglion cyst Hx of cataract surgery S/p TAVR (transcatheter aortic valve replacement), bioprosthetic Hx of CABG Hx of appendectomy H/O foot surgery Family History Mother Dementia Other CAD (coronary artery disease) Diabetes Hyperlipidemia Hypertension Stroke Denies family history of Clotting disorder Psychiatric illness Chronic kidney disease (CKD) Suicide Anesthesia complication Bleeding disorder Family history of premature coronary artery disease Lung disease Cancer Social History Smoking and tobacco/nicotine status: never used tobacco/nicotine Alcohol intake: never Substance/Drug Use: never Household members: significant other Housing: House Physical Exam 2 Const: GENERAL APPEARANCE: cooperative ORIENTATION/CONSCIOUSNESS: Yes awake, Yes oriented to person, Yes oriented to place and Yes oriented to time HENMT: COMMON NORMALS: normocephalic, atraumatic and hearing grossly normal bilaterally HEAD & SCALP: normocephalic and atraumatic Resp: COMMON NORMALS: normal respiratory effort, No retractions, No use of accessory muscles and clear to auscultation bilaterally AUSCULTATION: clear to auscultation bilaterally Cardio: COMMON NORMALS: regular rate, regular rhythm and No murmurs present (Cardio) RATE: regular rate RHYTHM: regular rhythm GI: COMMON NORMALS: Soft to palpation and No hepatosplenomegaly present A USCULTATION: Yes normoactive bowel sounds PALPATION: Yes Soft to palpation, No Tenderness to palpation present (GI), No Guarding due to palpation present (GI) and Yes No hepatosplenomegaly present Extremity: COMMON NORMALS: normal to inspection, capillary refill normal, no clubbing, cyanosis or edema, no calf tenderness and no pedal edema OTHER: Sensation lower extremities normal. Strength 3 of 5 no saddle paresthesias Neuro: SENSORIUM/ORIENTATION: Yes oriented to person, Yes oriented to place and Yes oriented to time Skin: COMMON NORMALS: no rashes or lesions noted GENERAL SKIN EXAM: no rashes or lesions noted Course 2 Vital Signs: Vital signs: Vital Signs Temperature 100.0 F H 06/20/23 17:48 Pulse Rate 81 06/20/23 17:48 Respiratory Rate 14 06/20/23 17:48 Blood Pressure 123/69 06/20/23 17:48 Pulse Oximetry 94 06/20/23 17:48 Oxygen Delivery Me thod Room Air 06/20/23 17:48 MDM - Weakness Medical Decision Making Patient presented emergency room with complaints of rather sudden onset of weakness also found to have urinary retention he did have a fair amount of constipation on his CT inflammatory markers were not elevated for time we are concerned about the possibility of an epidural abscess given the fact had been having this acupuncture and progressively worsening back pain leading up to today where he suddenly was not able to use his lower extremities and had this urinary retention. Because of his pacemaker he cannot have an MRI CT with contrast was done of the lumbar spine there is no significant finding noted. Discussed with hospitalist afterwards with inflammatory markers not being exceptionally high his white count normal at this point feel there is a lower index of suspicion for a epidural abscess. Will admit we did contact Dr. Calle this evening he will be available for consultation tomorrow if felt appropriate. Reviewed the case again with Dr. Benavides who is admitting the patient has ordered CTs of the thoracic and cervical spines as well. Medical Records I reviewed the patient's medical records. Lab Data I reviewed the patient's lab results. 06/20/23 17:25 06/20/23 17:25 Radiology Impressions Chest X-Ray 06/20/23 19:32 IMPRESSION: No focal consolidation. Lumbar Spine CT 06/20/23 19:52 IMPRESSION: 1. Multilevel lumbar spondylosis. No severe spinal canal stenosis. 2. Multilevel moderate to severe neural foraminal stenoses, most notable at L2-L3 with a right subarticular-foraminal disc extrusion impinging upon the right exiting L2 nerve roots and likely the right transiting L3 nerve roots. This could be better evaluated with nonemergent MRI. Abdomen/Pelvis CT 06/20/23 20:16 IMPRESSION: 1. No acute findings. 2. Large amount of stool in the rectum, correlate for fecal impaction. COMMENTS: Consistent with the [place] [employer]'s Incidental Findings Committee white paper (J Am Simona Radiol 2018): Any incidental renal lesion less than 1 cm or classified as too small to characterize, or any incidental cystic renal lesion characterized as simple-appearing, is likely benign. No follow-up imaging is recommended for these lesions per consensus recommendations based on imaging criteria. Femur CT 06/20/23 20:16 IMPRESSION: 1. No acute fracture or dislocation. No aggressive osseous lesions. 2. Large amount of stool in the rectum, correlate for fecal impaction. Laboratory Results WBC 4.78 10^3/uL (3.29-11.43) 06/20/23 17: RBC 4.53 10^6/uL (3.85-5.65) 06/20/23 17:25 Hgb 14.10 g/dL (11.27-16.99) 06/20/23 17: Hct 41.3 % (37-53) 06/20/23 17:25 MCV 91.2 fl (82-101) 06/20/23 17:25 MCH 31.1 pg (27-33) 06/20/23 17: MCHC 34.1 g/dL (30-55) 06/20/23 17:25 RDW 13.5 % (12.1-15.1) 06/20/23 17:25 Plt Count 215 10^3/cmm (157-399) 06/20/23 17:25 MPV 9.0 fL (7.4-10.4) 06/20/23 17:25 Neut % (Auto) 87.5 % 06/20/23 17:25 Lymph % (Auto) 7.9 % 06/20/23 17:25 [place] % (Auto) 3.8 % 06/20/23 17: Eos % (Auto) 0.0 % 06/20/23 17:25 Baso % (Auto) 0.6 % 06/20/23 17: Neut # (Auto) 4.18 10^3/uL (1.8-7.7) 06/20/23 17:25 Lymph # (Auto) 0.4 10^3/uL (0.8-4.8) L 06/20/23 17:25 [place] # (Auto) 0.2 10^3/uL (0.2-0.9) 06/20/23 17:25 Eos # (Auto) 0.0 10^3/uL (0.0-0.8) 06/20/23 17:25 Baso # (Auto) 0.0 10^3/uL (0.0-0.1) 06/20/23 17: Nucleated RBC % (auto) 0 % 06/20/23 17: Nucleated RBCs # 0.0 /100WBC 06/20/23 17:25 ESR 2 mm/hr (0-10) 06/20/23 20:43 Sodium 135 mmol/L (136-145) L 06/20/23 17:25 Potassium 4.1 mmol/L (3.5-5.1) 06/20/23 17:25 Chloride 98 mmol/L (98-107) 06/20/23 17:25 Carbon Dioxide 21 mmol/L (22-29) L 06/20/23 17:25 Anion Gap 20.1 (5-19) H 06/20/23 17:25 BUN 16 mg/dL (8-23) 06/20/23 17:25 Creatinine 1.1 mg/dL (0.7-1.2) 06/20/23 17:25 GFR Calculation Not Reportable 06/20/23 17:25 Glucose 181 mg/dL (65-115) H 06/20/23 17:25 Calculated Osmolality 286 mOsm/kg (285-295) 06/20/23 17:25 Lactic Acid 4.2 mmol/L (0.5-2.2) H* 06/20/23 17:25 Lactic Acid (Sepsis) 2.5 mmol/L (0.5-2.2) H 06/20/23 20:43 Calcium 9.0 mg/dL (8.5-10.5) 06/20/23 17: Total Bilirubin 0.3 mg/dL (0.15-1.2) 06/20/23 17: AST 34 U/L (0-40) 06/20/23 17:25 ALT 41 U/L (0-41) 06/20/23 17:25 Alkaline Phosphatase 62 U/L (40-130) 06/20/23 17:25 Troponin T Baseline 42 ng/L (0-15) H 06/20/23 17:25 Troponin T 120 Minute 46.80 ng/L (0-15) H 06/20/23 20:01 Delta Troponin T 4.80 ABS# (0-10) 06/20/23 20:01 C-Reactive Protein 28.4 mg/L (0.0-4.9) H 06/20/23 20:43 Total Protein 7.2 g/dL (6.6-8.7) 06/20/23 17:25 Albumin 4.4 g/dL (3.5-5.2) 06/20/23 17:25 Globulin 2.8 g/dL (1.3-4.6) 06/20/23 17:25 Procalcitonin 0.36 ng/mL (0-0.5) 06/20/23 20:43 Urine Color Yellow (Yellow) 06/20/23 19:56 Urine Appearance Clear (CLEAR) 06/20/23 19:56 Urine pH 5 (5-7) 06/20/23 19:56 Ur Specific [place] 1.015 (1.005-1.030) 06/20/23 19:56 Urine Protein Neg (Negative) 06/20/23 19:56 Urine Glucose (UA) 4+ (Normal) H 06/20/23 19:56 Urine Ketones Negative (Negative) 06/20/23 19:56 Urine Blood 2+ (Negative) H 06/20/23 19:56 Urine Nitrate Negative (Negative) 06/20/23 19:56 Urine Bilirubin Neg (Negative) 06/20/23 19:56 Urine Urobilinogen Norm mg/dL (Negative) 06/20/23 19:56 Ur Leukocyte Esterase Negative (Negative) 06/20/23 19:56 Urine RBC 0-4 /hpf (0-2) H 06/20/23 19:56 Urine WBC 0-4 /hpf (0-5) H 06/20/23 19:56 Ur Squamous Epith Cells 0-4 /hpf (0-5) H 06/20/23 19:56 Amorphous Sediment Not Reportable 06/20/23 19:56 Urine Bacteria None /hpf (NONE) 06/20/23 19:56 Urine Mucus 1+ /hpf 06/20/23 19:56 Adenovirus (PCR) Not detected (NOT DETECT) 06/20/23 18:17 C. pneumoniae DNA (PCR) Not detected (NOT DETECT) 06/20/23 18:17 Coronavirus 229E (PCR) Not detected (NOT DETECT) 06/20/23 18:17 Human Metapneumovir PCR Not detected (NOT DETECT) 06/20/23 18:17 Influenza A (H1) PCR Not detected (NOT DETECT) 06/20/23 18:17 Influ A (H1/09) PCR Not detected (NOT DETECT) 06/20/23 18:17 Influenza A (H3) PCR Not detected (NOT DETECT) 06/20/23 18:17 Influenza Type A (PCR) Not detected (NOT DETECT) 06/20/23 18:17 Influenza Type B (PCR) Not detected (NOT DETECT) 06/20/23 18:17 M. pneumoniae (PCR) Not detected (NOT DETECT) 06/20/23 18:17 Parainfluenza 1 (PCR) Not detected (NOT DETECT) 06/20/23 18:17 Parainfluenza 2 (PCR) Not detected (NOT DETECT) 06/20/23 18:17 Parainfluenza 3 (PCR) Not detected (NOT DETECT) 06/20/23 18:17 Parainfluenza 4 (PCR) Not detected (NOT DETECT) 06/20/23 18:17 RSV Type A (PCR) Not detected (NOT DETECT) 06/20/23 18:17 RSV Type B (PCR) Not detected (NOT DETECT) 06/20/23 18:17 Entero/Rhino (PCR) Not detected (NOT DETECT) 06/20/23 18:17 SARS-CoV-2 (PCR) Not detected (NOT DETECT) 06/20/23 18:17 All radiology interpretation(s) finalized by discharge Discharge Plan Discharge Patient Disposition: Admitted As Inpatient Clinical Impression: Leg weakness, Acute urinary retention, Fever of unknown origin, Lactic acidosis Condition: Stable Prescriptions: No Action acetaminophen [Tylenol Extra Strength] 500 mg tablet 1,000 mg PO BID PRN (Reason: fever) Qty: 60 0RF Rx Instructions: OTC Tart Kumar Extract 1,000 mg capsule See Rx Instructions PO .COMPLEX Rx Instructions: PO; lutein 40 mg capsule 40 mg PO BID vitamin B complex [B Complex-Vitamin B12] Tablet 1 tab PO DAILY glucosamine HCl 1,500 mg tablet 1,500 mg PO DAILY omega-3 fatty acids [Fish Oil Concentrate] 1,000 mg capsule 1,000 mg PO BID ferrous gluconate 324 mg (37.5 mg iron) tablet 324 mg PO DAILY Complete Multivitamin Tablet 1 tab PO QAM colchicine 0.6 mg tablet 0.6 mg PO DAILY Qty: 90 1RF diclofenac sodium 1 % gel 2 g topical QID Qty: 100 2RF Rx Instructions: apply to affected area as needed febuxostat 40 mg tablet 80 mg PO DAILY Qty: 180 1RF Rx Instructions: 340B please, insurance denied sulfasalazine 500 mg tablet See Rx Instructions .ROUTE .COMPLEX Qty: 360 1RF Dose Instruction: TAKE TWO TABLETS BY MOUTH TWO TIMES A DAY Rx Instructions: TAKE TWO TABLETS BY MOUTH TWO TIMES A DAY clopidogrel [Plavix] 75 mg tablet 75 mg PO DAILY Qty: 90 3RF Hold Instructions: Resume on 11/19/21. digoxin 125 mcg (0.125 mg) tablet 125 mcg PO DAILY Qty: 90 3RF Eliquis 5 mg tablet 5 mg PO BID Qty: 180 3RF Hold Instructions: Resume on 11/18/21. May start taking this tomorrow evening furosemide 40 mg tablet See Rx Instructions .ROUTE .COMPLEX Qty: 135 3RF Dose Instruction: TAKE 1 & 1/2 TABLETS BY MOUTH DAILY Rx Instructions: TAKE 1 & 1/2 TABLETS BY MOUTH DAILY isosorbide mononitrate 60 mg tablet extended release 24 hr 30 mg PO DAILY Qty: 90 3RF Rx Instructions: Unable to tolerate 120mg dose Mag 64 64 mg tablet,delayed release (DR/EC) 64 mg PO BID Qty: 180 3RF potassium chloride 10 mEq tablet extended release 10 meq PO DAILY Qty: 90 3RF Entresto 49-51 mg tablet 0.5 tab PO BID Qty: 90 3RF Rx Instructions: *Reduced dose: Adverse reaction to 97/103mg (lightheadedness) spironolactone 25 mg tablet 25 mg PO DAILY Qty: 90 3RF prednisone 20 mg tablet See Rx Instructions PO .COMPLEX PRN (Reason: joint pain flare) Qty: 30 1RF Rx Instructions: take 1 tab daily for 5-7 days as needed for gout flare PO PRN; ascorbic acid (vitamin C) [Vitamin C] 500 mg Tablet 500 mg PO DAILY Referrals: Destin Chung MD [Primary Care Provider] - Coding Level of Care Code ED Government Auditor for Betsy Ziegler
[2023-06-20 18:22] LABS: Basophils % 0.6 %; Hematocrit 41.3 % (37-53); Lymphocytes # 0.4 10^3/uL (0.8-4.8); Lymphocytes % 7.9 %; Mean Corpuscular HGB Conc 34.1 g/dL (30-55); Mean Corpuscular Hemoglobin 31.1 pg (27-33); Mean Corpuscular Volume 91.2 fl (82-101); Monocytes # 0.2 10^3/uL (0.2-0.9); Monocytes % 3.8 %; Neutrophils # 4.18 10^3/uL (1.8-7.7); Neutrophils % 87.5 %; Nucleated Red Blood Cells % 0 %; Platelet Count 215 10^3/cmm (157-399); Red Blood Count 4.53 10^6/uL (3.85-5.65); Red Cell Distribution Width 13.5 % (12.1-15.1); White Blood Count 4.78 10^3/uL (3.29-11.43)
[2023-06-20 18:47] LABS: Troponin(5th) Baseline 42 ng/L (0-15)
[2023-06-20 18:49] LABS: Alanine Aminotransferase 41 U/L (0-41); Albumin Level 4.4 g/dL (3.5-5.2); Alkaline Phosphatase 62 U/L (40-130); Anion Gap 20.1 (5-19); Aspartate Amino Transferase 34 U/L (0-40); Blood Urea Nitrogen 16 mg/dL (8-23); Carbon Dioxide 21 mmol/L (22-29); Chloride 98 mmol/L (98-107); Creatinine Clr Calc Pharmacy 56.1777; Globulin 2.8 g/dL (1.3-4.6); Glucose 181 mg/dL (65-115); Osmolality Calculated 286 mOsm/kg (285-295); Potassium 4.1 mmol/L (3.5-5.1); Sodium 135 mmol/L (136-145); Total Bilirubin 0.3 mg/dL (0.15-1.2); Total Protein 7.2 g/dL (6.6-8.7)
[2023-06-20 18:54] LABS: Lactic Sepsis W/Reflex 4.2 mmol/L (0.5-2.2)
[2023-06-20] MEDS: cefTRIAXone 1,000 MG in sodium chloride 0.9% (plus) 50 ML 100 MG IV (19:20)
--- NOTE | 2023-06-20 19:32 | XRR_ITS ---
PROCEDURE INFORMATION: Exam: XR Chest Exam date and time: 06/20/2023 8:15 PM Age: 83 years old Clinical indication: Cough and dyspnea; Prior surgery; Surgery date: 6+ months; Surgery type: Paceer, open heart; Additional info: Dyspnea/cough TECHNIQUE: Imaging protocol: Radiologic exam of the chest. Views: 1 view. COMPARISON: CR XR chest 1V portable [id number] 11/15/2019 9:30 AM FINDINGS: Tubes, catheters and devices: Cardiac pacer. TAVR. Sternal wires. Mediastinal surgical clips. Lungs: No focal consolidation. No pulmonary edema. Pleural spaces: No large pleural effusion. No pneumothorax. Heart/Mediastinum: Unchanged cardiomediastinal silhouette. Bones/joints: No acute abnormality. XR/XR chest 1V portable [id number] IMPRESSION: No focal consolidation.
--- NOTE | 2023-06-20 19:44 | ECG_ITS ---
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 Measurements Intervals [place] Rate: 80 P: 0 AL: 0 QRS: -85 QRSD: 195 T: 98 QT: 448 QTc: 520 Interpretive Statements ELECTRONIC VENTRICULAR PACEMAKER Compared to ECG 06/20/2023 17:56:56 No significant changes Electronically Signed On 06-21-2023 16:29:42 CDT by Latih Peters M.D. [id number]
[2023-06-20 19:45] VITALS: BP 123/69; PULSE 83; O2SAT 93
--- NOTE | 2023-06-20 19:52 | CTR_ITS ---
PROCEDURE INFORMATION: Exam: CT Lumbar Spine With Contrast Exam date and time: 06/20/2023 8:31 PM Age: 83 years old Clinical indication: Other: Urinary retention, lower extremity weakness TECHNIQUE: Imaging protocol: Computed tomography of the lumbar spine with contrast. Radiation optimization: All CT scans at this facility use at least one of these dose optimization techniques: automated exposure control; mA and/or kV adjustment per patient size (includes targeted exams where dose is matched to clinical indication); or iterative reconstruction. Contrast material: OMNI 350; Contrast volume: 100 ml; Contrast route: INTRAVENOUS (IV); COMPARISON: CR XR lumbar spine 2-3V* [id number] 05/12/2023 11:13 AM RADIATION DOSE METRICS: Total DLP (mGy-cm): 700.6 FINDINGS: Bones/joints: No acute fracture. Slight levocurvature centered at T12-L1. Minimal retrolisthesis of L2 on L3 and L1 on L2. Minimal anterolisthesis of L5 on S1. T12-L1: Asymmetric right disc bulge. Facet arthropathy. Moderate to severe right neural foraminal narrowing. Mild spinal canal narrowing. L1-L2: Symmetric disc bulge. Facet arthropathy. Mild bilateral neural foraminal narrowing. Hudx-iw-sdlghyyz spinal canal narrowing. L2-L3: Disc bulge with superimposed right subarticular-foraminal disc extrusion with cranial migration which impinges upon the right exiting L2 nerve roots and likely the right transiting L3 nerve roots. Moderate to severe left neural foraminal narrowing. Mbvo-rv-irizcnzi spinal canal narrowing. L3-L4: Disc bulge. Facet arthropathy. Moderate bilateral neural foraminal narrowing. Mild spinal canal narrowing. L4-L5: Disc bulge. Facet arthropathy. Mild bilateral neural foraminal narrowing. Minimal spinal canal narrowing. L5-S1: Slightly asymmetric right disc bulge. Facet arthropathy. Moderate right/mild to moderate left neural foraminal narrowing. No spinal canal narrowing. Soft tissues: Unremarkable. CT/CT lumbar spine w con [id number] IMPRESSION: 1. Multilevel lumbar spondylosis. No severe spinal canal stenosis. 2. Multilevel moderate to severe neural foraminal stenoses, most notable at L2-L3 with a right subarticular-foraminal disc extrusion impinging upon the right exiting L2 nerve roots and likely the right transiting L3 nerve roots. This could be better evaluated with nonemergent MRI.
[2023-06-20 19:59] LABS: Reflex Lactate Order REFLEX LACTIC ORDERD
--- NOTE | 2023-06-20 20:16 | CTR_ITS ---
PROCEDURE INFORMATION: Exam: CT Abdomen And Pelvis With Contrast Exam date and time: 06/20/2023 8:31 PM Age: 83 years old Clinical indication: Abdominal pain; Flank; Additional info: Flnak pain TECHNIQUE: Imaging protocol: Computed tomography of the abdomen and pelvis with contrast. Radiation optimization: All CT scans at this facility use at least one of these dose optimization techniques: automated exposure control; mA and/or kV adjustment per patient size (includes targeted exams where dose is matched to clinical indication); or iterative reconstruction. Contrast material: OMNI 350; Contrast volume: 100 ml; Contrast route: INTRAVENOUS (IV); COMPARISON: CT femur RT wo con* [id number] 06/20/2023 8:28 PM RADIATION DOSE METRICS: Total DLP (mGy-cm): 700.6 FINDINGS: Tubes, catheters and devices: Cardiac pacer is present. Lungs: Numerous scattered pulmonary granulomas, similar to prior. Scattered subsegmental atelectasis. Heart: Cardiomegaly. TAVR. Coronary arteries: Severe coronary artery calcification and/or stents. Liver: Subcentimeter too small to characterize hepatic hypodensities. Otherwise unremarkable. Gallbladder and bile ducts: No calcified gallstones, pericholecystic inflammatory change, or biliary ductal dilation. Pancreas: Pancreatic atrophy. No main duct dilation. Spleen: Spleen is unremarkable. Adrenal glands: No nodules. Kidneys and ureters: No mass. No hydroureteronephrosis. No urinary tract calculi. Simple cysts in the right kidney and subcentimeter too small to characterize renal hypodensities bilaterally. Stomach and bowel: Large amount of stool in the rectum, correlate for fecal impaction. No bowel obstruction. Appendix: Appendix is not definitely identified, however there is no CT evidence of right lower quadrant inflammatory process. Intraperitoneal space: Unremarkable. No free air. No significant fluid collection. Vasculature: Severe aortoiliac atherosclerosis. No aortic aneurysm. Moderate narrowing of the celiac artery origin. Lymph nodes: No enlarged lymph nodes. Urinary bladder: Bladder is decompressed with Rutherford catheter in place. Reproductive: Prostatomegaly. Bones/joints: No acute fracture. Degenerative changes. Soft tissues: Subdermal/subcutaneous nodule in the right anterior chest, most likely trichilemmal cyst. Small fat containing umbilical hernia. CT/CT abdomen pelvis w con* [id number] IMPRESSION: 1. No acute findings. 2. Large amount of stool in the rectum, correlate for fecal impaction. COMMENTS: Consistent with the [employer]'s Incidental Findings Committee white paper (J Am Simona Radiol 2018): Any incidental renal lesion less than 1 cm or classified as too small to characterize, or any incidental cystic renal lesion characterized as simple-appearing, is likely benign. No follow-up imaging is recommended for these lesions per consensus recommendations based on imaging criteria.
--- NOTE | 2023-06-20 20:16 | CTR_ITS ---
PROCEDURE INFORMATION: Exam: CT Right Lower Extremity Without Contrast; Thigh Exam date and time: 06/20/2023 8:28 PM Age: 83 years old Clinical indication: Pain; Other: Femur TECHNIQUE: Imaging protocol: CT of the right lower extremity without contrast was performed. Exam focused on the thigh. Radiation optimization: All CT scans at this facility use at least one of these dose optimization techniques: automated exposure control; mA and/or kV adjustment per patient size (includes targeted exams where dose is matched to clinical indication); or iterative reconstruction. COMPARISON: CR XR femur RT min 2V* [id number] 05/02/2023 10:32 AM RADIATION DOSE METRICS: Total DLP (mGy-cm): 610.9 FINDINGS: Bones/joints: No acute fracture or dislocation. No aggressive osseous lesions. Cbto-ee-zvmymmho hip and tricompartmental knee osteoarthritis. Decreased osseous mineralization. Soft tissues: Unremarkable. Vasculature: Diffuse vascular calcifications. Stomach: Large amount of stool in the rectum, correlate for fecal impaction. Urinary bladder: Bladder is decompressed with Rutherford catheter in place. Reproductive: Epididymal hyperdensity/calcification noted on the right, may be related to chronic inflammation. CT/CT femur RT wo con* [id number] IMPRESSION: 1. No acute fracture or dislocation. No aggressive osseous lesions. 2. Large amount of stool in the rectum, correlate for fecal impaction.
[2023-06-20 20:19] LABS: Add Urine Microscopic? YES; Bilirubin Urine Neg (Negative); Blood Urine 2+ (Negative); Glucose Urine UA 4+ (Normal); Ketones Urine Negative (Negative); Leukocyte Esterase Urine Negative (Negative); Nitrate Urine Negative (Negative); Protein Urine Neg (Negative); Specific Gravity, Urine 1.015 (1.005-1.030); Urine Appearance Clear (CLEAR); Urine Color Yellow (Yellow); Urobilinogen Urine Norm (Negative); pH Urine 5 (5-7)
[2023-06-20 20:21] LABS: Add Urine Culture? No; Mucus Urine 1+ /hpf; RBC Urine 0-4 /hpf (0-2); Squamous Epithelial Cell Urine 0-4 /hpf (0-5); WBC Urine 0-4 /hpf (0-5)
[2023-06-20] MEDS: iohexol 350 mg/mL 500 mL Btl (per mL) IV (20:32)
[2023-06-20 20:50] LABS: Erythrocyte Sedimentation Rate 2 mm/hr (0-10)
[2023-06-20 20:52] LABS: Adenovirus Not Detected (NOT DETECT); Chlamydia Pneumoniae Not Detected (NOT DETECT); Coronavirus 229E,HKU1,NL63,OC4 Not Detected (NOT DETECT); Human Metapneumovirus Not Detected (NOT DETECT); Human Rhinovirus/Enterovirus Not Detected (NOT DETECT); Influenza A Not Detected (NOT DETECT); Influenza A H1 Not Detected (NOT DETECT); Influenza A H1-2009 Not Detected (NOT DETECT); Influenza A H3 Not Detected (NOT DETECT); Influenza B Not Detected (NOT DETECT); Mycoplasma Pneumoniae Not Detected (NOT DETECT); Parainfluenza Virus Type 1 Not Detected (NOT DETECT); Parainfluenza Virus Type 2 Not Detected (NOT DETECT); Parainfluenza Virus Type 3 Not Detected (NOT DETECT); Parainfluenza Virus Type 4 Not Detected (NOT DETECT); Respiratory Syncytial Virus A Not Detected (NOT DETECT); Respiratory Syncytial Virus B Not Detected (NOT DETECT); SARS-COV-2 Not Detected (NOT DETECT)
[2023-06-20 21:00] VITALS: BP 114/63; PULSE 81; RESP 26; O2SAT 92
[2023-06-20 21:08] LABS: C Reactive Protein 28.4 mg/L (0.0-4.9); Lactic Acid level (Lactate) 2.5 mmol/L (0.5-2.2)
[2023-06-20 21:15] LABS: Procalcitonin 0.36 ng/mL (0-0.5)
[2023-06-20 22:00] VITALS: BP 122/64; PULSE 80; O2SAT 92
--- NOTE | 2023-06-20 22:25 | CTR_ITS ---
PROCEDURE INFORMATION: Exam: CT Thoracic Spine Without Contrast Exam date and time: 06/20/2023 10:42 PM Age: 83 years old Clinical indication: Weakness TECHNIQUE: Imaging protocol: Computed tomography of the thoracic spine without contrast. Radiation optimization: All CT scans at this facility use at least one of these dose optimization techniques: automated exposure control; mA and/or kV adjustment per patient size (includes targeted exams where dose is matched to clinical indication); or iterative reconstruction. COMPARISON: CT cervical spin wo con* [id number] 06/20/2023 10:39 PM RADIATION DOSE METRICS: Total DLP (mGy-cm): 1182.72 FINDINGS: Bones/joints: No acute appearing vertebral body compression deformity. Facet alignment is preserved. Thoracic spondylosis. No high-grade neural foraminal or spinal canal stenosis. Soft tissues: Unremarkable. Vasculature: Ascending aortic aneurysm measuring up to 4.7 cm. Lungs: Numerous scattered pulmonary granulomas. Scattered subsegmental atelectasis/scarring. Heart: TAVR. Cardiac pacer device. Coronary arteries: Severe multivessel coronary artery calcifications and/or stents. CT/CT thoracic spin wo con* [id number] IMPRESSION: 1. No acute fracture or traumatic malalignment in the thoracic spine. 2. Ascending aortic aneurysm measuring up to 4.7 cm.
--- NOTE | 2023-06-20 22:25 | CTR_ITS ---
PROCEDURE INFORMATION: Exam: CT Cervical Spine Without Contrast Exam date and time: 06/20/2023 10:39 PM Age: 83 years old Clinical indication: Weakness; Additional info: Paralysis TECHNIQUE: Imaging protocol: Computed tomography of the cervical spine without contrast. Radiation optimization: All CT scans at this facility use at least one of these dose optimization techniques: automated exposure control; mA and/or kV adjustment per patient size (includes targeted exams where dose is matched to clinical indication); or iterative reconstruction. COMPARISON: US ROR carotid duplex BI 07/27/2022 8:42 AM RADIATION DOSE METRICS: Total DLP (mGy-cm): 390.9 FINDINGS: Bones/joints: Craniocervical and facet alignment is preserved. No acute appearing vertebral body compression deformity. C2-C3: Mild bilateral neural foraminal narrowing. No spinal canal narrowing. C3-C4: Sfxij-ftmsday-ahqn-left uncovertebral and facet arthropathy. Tiny disc osteophyte complex. Severe right/mild left neural foraminal narrowing. Jojc-ao-krpdmufn spinal canal narrowing. C4-C5: Disc osteophyte complex. Uncovertebral and facet arthropathy. Severe bilateral neural foraminal narrowing. At least moderate spinal canal narrowing. C5-C6: Uncovertebral and facet arthropathy. Small disc osteophyte complex. Severe left/moderate right neural foraminal narrowing. Eobn-lz-djqdheuv spinal canal narrowing. C6-C7: Small disc osteophyte complex. Uncovertebral and facet arthropathy. Severe bilateral neural foraminal narrowing. Probable moderate spinal canal narrowing. C7-T1: Mild bilateral neural foraminal narrowing. No spinal canal narrowing. Lungs: Lung apices are normal. Vasculature: Bilateral vertebral artery atherosclerosis. Focal severe stenosis of the mid left vertebral artery, series 4, image 14. Soft tissues: Unremarkable. CT/CT cervical spin wo con* [id number] IMPRESSION: 1. No acute fracture or traumatic malalignment. 2. Multilevel cervical spondylosis. Up to at least moderate spinal canal narrowing at C4-C5. Multilevel moderate to severe neural foraminal stenoses. Degenerative changes could be better evaluated with MRI, as clinically indicated. 3. Bilateral vertebral artery atherosclerosis with probable focal severe stenosis of the mid left vertebral artery.
--- NOTE | 2023-06-20 22:46 | P.HP_ITS ---
Providers/Chief Complaint 2 Primary Care Provider: Destin Chung MD Chief Complaint: Weakness History of Present Illness Thong Salgado is a 83 year old male history of CABG x 2, history of cardiomyopathy, history of aortic valve stenosis status post TAVR, history of dual-chamber pacemaker, history of hyperlipidemia, hypertension, hyperlipidemia, history of seropositive rheumatoid arthritis, inflammatory arthritis, gout who presents to [facility] due to generalized weakness, particularly bilateral lower extremity weakness, difficulty ambulating, urinary retention, currently patient is alert oriented x 3, following all commands, he is hard of hearing family members at bedside. Patient tells me that about 5 weeks ago, he was using a cane, to ambulate, when he put too much pressure on his right hip, since then he has had severe right hip pain, right femur pain, right-sided back pain, pain with range of motion, no neuropathy, no numbness or tingling, no weakness at that time so he was receiving physical therapy, receiving acupuncture, hot stone application, he tells me that his right thigh, right femur pain has improved. Denies any fevers, no chills, no cough, no dysuria, hematuria, no diarrhea, no recent illness. He does report that about a week ago he had a tick bite over his bellybutton which she removed. No recent tick bites since then, or current tick bites. He tells me that yesterday he did not feel well, having fatigue, malaise. This morning when he woke up, he tells me he felt weak in both his legs, both his arms, with difficulty ambulating, no numbness or tingling, no significant pain in his right thigh but he did have back pain, which is chronic for the last 5 weeks, but a bit more than his usual. He tells me that he went to physical therapy but his ovzshyes-sr-yvp had to help him to physical therapy which is unusual, as he normally can ambulate without assistance. He completed physical therapy acupuncture therapy hot stone therapy and again required assistance to ambulate to get back into his car and go home. When he arrived at home, he went to bed, and he tells me that when he got out of bed he was unable to get up out of bed and he fell out of bed, weakness in bilateral extremities, no numbness, no tingling, denies any fevers, no urinary incontinence, no bowel incontinence no saddle or perineal anesthesia, he was found to have urinary retention in the emergency room requiring a Rutherford catheter placement, he denies any constipation but was found to have a large amount of stool in his rectum on CAT scan Review of Systems 2 Const: Denies: fever(s) Card: Denies: chest pain Resp: Denies: dyspnea GI: Denies: abdominal pain : Denies: flank pain Neuro: Denies: headache(s) Medications/Allergies Home Medications Medication Instructions Recorded Confirmed Last Taken Type ascorbic acid (vitamin C) 500 mg 500 mg PO DAILY 02/13/19 03/22/23 11/17/21 07:00 History tablet (Vitamin C) ferrous gluconate 324 mg (37.5 mg 324 mg PO DAILY 02/13/19 03/22/23 11/17/21 07:00 History iron) tablet multivitamin,cl-durq-htzhfuik 1 tab PO QAM 02/13/19 03/22/23 11/17/21 07:00 History (Complete Multivitamin tablet) omega-3 fatty acids 1,000 mg 1,000 mg PO BID 02/13/19 03/22/23 11/17/21 07:00 History capsule (Fish Oil Concentrate) glucosamine HCl 1,500 mg tablet 1,500 mg PO DAILY 06/17/19 03/22/23 11/17/21 07:00 History lutein 40 mg capsule 40 mg PO BID 06/17/19 03/22/23 11/17/21 07:00 History vitamin B complex (B 1 tab PO DAILY 06/17/19 03/22/23 11/17/21 07:00 History Complex-Vitamin B12 tablet) acetaminophen 500 mg tablet 1,000 mg (2 x 500 mg) PO BID PRN 05/11/20 03/22/23 Unknown Rx (Tylenol Extra Strength) fever #60 tabs sour kumar extract 1,000 mg See Rx Instructions PO .COMPLEX 06/16/20 03/22/23 11/17/21 07:00 History capsule (Tart Kumar Extract) Eliquis 5 mg tablet (apixaban) 5 mg PO BID #180 tabs 01/18/23 03/22/23 Unknown Rx clopidogrel 75 mg tablet (Plavix) 75 mg PO DAILY #90 tabs 01/18/23 03/22/23 Unknown Rx digoxin 125 mcg (0.125 mg) tablet 125 mcg PO DAILY #90 tabs 01/18/23 03/22/23 Unknown Rx furosemide 40 mg tablet See Rx Instructions .Route 01/18/23 03/22/23 Unknown Rx .COMPLEX #135 tabs isosorbide mononitrate 60 mg 30 mg (1/2 x 60 mg) PO DAILY #90 01/18/23 03/22/23 Unknown Rx tablet,extended release 24 hr tabs magnesium chloride 64 mg 64 mg PO BID #180 tabs 01/18/23 03/22/23 Unknown Rx (magnesium chloride) tablet,delayed release (Mag 64) potassium chloride 10 mEq 10 meq PO DAILY #90 tabs 01/18/23 03/22/23 Unknown Rx tablet,extended release sacubitril 49 mg-valsartan 51 mg 0.5 tab PO BID #90 tabs 01/18/23 03/22/23 Unknown Rx tablet (Entresto) spironolactone 25 mg tablet 25 mg PO DAILY #90 tabs 01/18/23 03/22/23 Unknown Rx prednisone 20 mg tablet See Rx Instructions PO .COMPLEX 01/19/23 03/22/23 Unknown Rx PRN joint pain flare #30 tabs colchicine 0.6 mg tablet 0.6 mg PO DAILY #90 tabs 03/22/23 03/22/23 Unknown Rx diclofenac sodium 1 % topical gel 2 g topical QID joint pain flare 03/22/23 03/22/23 Unknown Rx #100 grams febuxostat 40 mg tablet 80 mg (2 x 40 mg) PO DAILY #180 03/22/23 03/22/23 Unknown Rx tabs sulfasalazine 500 mg tablet See Rx Instructions .Route 03/22/23 03/22/23 Unknown Rx .COMPLEX #360 tabs Allergies Allergy/AdvReac Type Severity Reaction Status Date / Time ciprofloxacin Allergy Unknown unknown Verified 03/22/23 09:40 Penicillins Allergy Unknown unknown Verified 03/22/23 09:40 simvastatin Allergy unknown Verified 03/22/23 09:40 allopurinol AdvReac itching Verified 03/22/23 09:40 lisinopril AdvReac cough Verified 03/22/23 09:40 PFSH Acute 2 PFSH: Medical History History of nonmelanoma skin cancer Gout COVID-19 vaccine administered Macular degeneration Seropositive rheumatoid arthritis of multiple sites Immunization counseling High risk medication use Osteoarthritis of knees, bilateral Inflammatory arthritis Gout, arthritis Edema, peripheral Coronary arteriosclerosis after coronary artery bypass grafting CABG x2 (OLSON to LAD and SVG to OM, 05/08/2008) Cardiomyopathy LVEF has decreased from 45% to 35% by echocardiogram. Aortic valvar stenosis He is due for TAVR at [facility] Cataract Cardiac arrhythmia Pacemaker Dual-chamber Mixed hyperlipidemia last lipid panel 2020: Cholesterol 93, triglycerides 78, LDL 55. Thoracic aneurysm without mention of rupture Ascending aortic aneurysm 4.4cm by CT 07/2017 Essential hypertension Surgical History History of surgical removal of ganglion cyst Hx of cataract surgery S/p TAVR (transcatheter aortic valve replacement), bioprosthetic Hx of CABG Hx of appendectomy H/O foot surgery Family History Mother Dementia Other CAD (coronary artery disease) Diabetes Hyperlipidemia Hypertension Stroke Denies family history of Clotting disorder Psychiatric illness Chronic kidney disease (CKD) Suicide Anesthesia complication Bleeding disorder Family history of premature coronary artery disease Lung disease Cancer Social History Smoking and tobacco/nicotine status: never used tobacco/nicotine Alcohol intake: never Substance/Drug Use: never Household members: significant other Housing: House Vitals/I&O/Wt Last Vital Signs Temp 100.0 F H 06/20/23 17:48 Pulse 81 06/20/23 17:48 Resp 14 06/20/23 17:48 BP 123/69 06/20/23 17:48 Pulse Ox 94 06/20/23 17:48 O2 Del Method Room Air 06/20/23 17:48 Weight last 48 hrs Weight 85.729 kg Physical Exam 2 Const: COMMON NORMALS: no acute distress and patient oriented x3 HENMT: COMMON NORMALS: normocephalic HEAD & SCALP: normocephalic Eye: COMMON NORMALS: Equal, round and reactive pupils present Neck/C-Spine: COMMON NORMALS: no JVD Resp: COMMON NORMALS: normal respiratory effort, No retractions, No use of accessory muscles and clear to auscultation bilaterally AUSCULTATION: clear to auscultation bilaterally Cardio: COMMON NORMALS: no JVD, regular rate, regular rhythm, S1 normal heart sound present and S2 normal heart sound present RATE: regular rate RHYTHM: regular rhythm HEART SOUNDS: S1 normal heart sound present and S2 normal heart sound present GI: COMMON NORMALS: Normal to inspection, nondistended, normoactive bowel sounds present, Soft to palpation, non-tender and No hepatosplenomegaly present Extremity: COMMON NORMALS: no calf tenderness and no pedal edema Neuro: COMMON NORMALS: patient oriented x3, CN's II-XII intact bilaterally and moves all extremities OTHER: Bilateral upper extremities, has equal strength bilaterally, he reports feeling weak in both arms, on examination I cannot really discern any weakness per se, but he is thumb reflex, elbow jerk reflex is significantly diminished ? Bilateral lower extremities, significant weakness in bilateral extremities, strength 1 out of 5 bilaterally, no paresthesias, no lack of sensation, ankle jerk, knee jerk reflexes are absent bilaterally Psych: COMMON NORMALS: mental status grossly normal Data 06/20/23 17:25 06/20/23 17:25 Micro: Microbiology 06/20/23 19:12 Blood Culture - Preliminary Blood SPECIMEN COLLECTED 06/20/23 19:07 Blood Culture - Preliminary Blood SPECIMEN COLLECTED A&P Assessment and plan (1) Weakness of both lower extremities: Bilateral extremity weakness, with trouble ambulating, urinary retention -Complaints of upper extremity weakness, none that I could discern ? No shortness of breath ? Does have significant bilateral knee weakness strength 1 out of 5 ? Bilateral lower and upper extremity reflexes are absent or diminished bilaterally ? Cannot do an MRI given his pacemaker ? White blood cell count within normal limits -CRP 28.4, Pro-Evert, sed rate within normal limits ? Respiratory viral panel within normal limits CT lumbar spine ? CT/CT lumbar spine w con [id number] IMPRESSION: 1. Multilevel lumbar spondylosis. No severe spinal canal stenosis. 2. Multilevel moderate to severe neural foraminal stenoses, most notable at L2-L3 with a right subarticular-foraminal disc extrusion impinging upon the right exiting L2 nerve roots and likely the right transiting L3 nerve roots. This could be better evaluated with nonemergent MRI. -Differential diagnosis, concerning for Guillain-Velez? syndrome versus CIDP versus multilevel severe foraminal stenosis/spinal canal stenosis, or nerve impingement versus cauda equina syndrome ?Plan ? Given patient's nerve impingement L2, complaints of back pain, there is significant concern for cauda equina syndrome, ? Will start him on Decadron 6 mg IV push every 6 hours, Protonix 40 mg IV twice daily ? Keep n.p.o. after midnight, hold Plavix, hold Eliquis, in case he needs surgical decompression ? Spoke to Dr. Calle, cannot do an MRI given patient's pacemaker, ordered a CT myelogram of the lumbar spine tomorrow, he will see tomorrow ? My other thought was the possibility of Guillain-Velez? syndrome versus CIDP, given loss of reflexes bilateral upper and lower extremities, he denies any ascending weakness, spoke to neurology, Dr. Avalos, will consult, CT cervical and lumbar spine, will continue to monitor, will consider IVIG based on further workup and clinical progress ? Neurochecks ? Monitor neurologic status closely, ? Full code ? SCDs for DVT prophylaxis Elevated lactic acid, UA within normal limits, chest x-ray no focal pneumonia, CT abdomen no focal findings, continue IV fluids, monitor Attestations 2 Medical Necessity Statement*: Patient requires hospitalization, inpatient, greater than 2 midnights, for bilateral extremity weakness, concerning for cauda equina syndrome versus Guillain-Velez? Diagnoses Weakness of both lower extremities R29.897
[2023-06-20 23:07] LABS: Digoxin 1.1 ng/mL (0.6-1.2)
[2023-06-20 23:32] VITALS: BP 144/69; PULSE 81; RESP 28; O2SAT 94
--- NOTE | 2023-06-20 23:47 | ECG_ITS ---
[facility] Test Date: 2023-06-21 Pat Name: Thong Salgado Department: Room: 268 Gender: Male [employer]: : 1940 Requested By: Efren Chowdhury Order Number: [id number] Enedina MD: Laith Peters M.D. Measurements Intervals [place] Rate: 80 P: 0 ME: 0 QRS: -53 QRSD: 191 T: 67 QT: 439 QTc: 509 Interpretive Statements [employer]LECT[employer] PACEMAKER Compared to ECG 06/20/2023 19:44:21 No significant changes Electronically Signed On 06-21-2023 16:28:28 CDT by Laith Peters M.D. [email or web address]
[2023-06-20] MEDS: sodium chloride 0.9% 1,000 ML 75 ML IV (23:50)
[2023-06-20] MEDS: pantoprazole 40 mg SDV IVP (23:54)
[2023-06-20] MEDS: dexamethasone 10 mg/mL INJ 6 MG IVP (23:56)
[2023-06-20] MEDS: doxycycline 100 MG in sodium chloride 0.9% (plus) 100 ML IV (23:58)
[2023-06-21] VITALS (14 sets, daily range): BP systolic 102–140; BP diastolic 59–75; PULSE 71–82; RESP 12–18; TEMP 36.4–37.1; O2SAT 93–97
[2023-06-21 00:29] LABS: Troponin 5 6HR 49.43 ng/L (0-15); Troponin 5 6HR Delta 7.43 ng/L (0-12)
[2023-06-21 04:23] LABS: Basophils % 0.5 %; Hematocrit 44.4 % (37-53); Lymphocytes # 0.4 10^3/uL (0.8-4.8); Lymphocytes % 11.6 %; Mean Corpuscular HGB Conc 33.6 g/dL (30-55); Mean Corpuscular Hemoglobin 31.2 pg (27-33); Mean Corpuscular Volume 93.1 fl (82-101); Mean Platelet Volume 8.7 fL (7.4-10.4); Monocytes # 0.1 10^3/uL (0.2-0.9); Monocytes % 3.2 %; Neutrophils # 3.14 10^3/uL (1.8-7.7); Neutrophils % 84.4 %; Nucleated Red Blood Cells % 0 %; Platelet Count 183 10^3/cmm (157-399); Red Blood Count 4.77 10^6/uL (3.85-5.65); Red Cell Distribution Width 13.8 % (12.1-15.1); White Blood Count 3.72 10^3/uL (3.29-11.43)
[2023-06-21 04:35] LABS: Partial Thromboplastin Time 39.9 SECONDS (23.9-36.7)
[2023-06-21 04:38] LABS: Estmated Average Glucose 140; Hemoglobin A1C 6.5 % (4.0-6.0)
[2023-06-21 04:43] LABS: Lactic Sepsis W/Reflex 1.8 mmol/L (0.5-2.2)
[2023-06-21 04:53] LABS: Alanine Aminotransferase 51 U/L (0-41); Albumin Level 4.1 g/dL (3.5-5.2); Alkaline Phosphatase 64 U/L (40-130); Anion Gap 17.3 (5-19); Aspartate Amino Transferase 49 U/L (0-40); Blood Urea Nitrogen 18 mg/dL (8-23); Calcium 9.4 mg/dL (8.5-10.5); Carbon Dioxide 25 mmol/L (22-29); Chloride 98 mmol/L (98-107); Creatinine Clr Calc Pharmacy 57.4932; Globulin 3.3 g/dL (1.3-4.6); Glucose 145 mg/dL (65-115); Magnesium 2.3 mg/dL (1.7-2.3); Osmolality Calculated 286 mOsm/kg (285-295); Phosphorus 3.9 mg/dL (2.5-4.5); Potassium 4.3 mmol/L (3.5-5.1); Sodium 136 mmol/L (136-145); Thyroid Stimulating Hormone 1.55 uIU/mL (0.27-4.20); Total Bilirubin 0.4 mg/dL (0.15-1.2); Total Protein 7.4 g/dL (6.6-8.7)
[2023-06-21 06:43] LABS: Glucose Point of Care 197 mg/dL (70-110)
--- NOTE | 2023-06-21 08:33 | P.CONIM_ITS ---
Providers/Reason For Consult 2 Consulting Physician/Specialty*: Chan Avalos MD neurology and epilepsy Reason for Consult*: Lower extremity weakness assess for acute inflammatory demyelinating polyneuropathy Attending Physician: Thor Kovacs MD Primary Care Provider: Destin Chung MD History of Present Illness History of Present Illness Thong Salgado is a 83 year old male with a history of coronary atherosclerotic heart disease status post coronary artery bypass, atrial fibrillation treated with Eliquis, aortic valve replacement, pacemaker placement, osteoarthritis of the knees, right hip pain/arthritis, gouty arthritis and hyperlipidemia. According to the patient, he has been experiencing low back pain for approximately 20 years but according to the patient, approximately 6 months prior to admission he began experiencing increasing back pain and 6 weeks prior to admission he was showing some of his property. Patient stated that he was walking on a cane and he thinks he may have been standing or walking for too long because he began experiencing increasing right hip pain and bilateral leg pain. Patient also stated that he began experiencing leg weakness. He also stated that he began experiencing some arm weakness. Patient denied any tick bites. Patient reports that he underwent physical therapy and acupuncture with improvement in his pain but he has continued to have leg weakness. Patient presented to the [facility] emergency room on 06/20/2023. CT of the lumbar spine was obtained on 06/20/2023 and revealed: IMPRESSION: 1. Multilevel lumbar spondylosis. No severe spinal canal stenosis. 2. Multilevel moderate to severe neural foraminal stenoses, most notable at L2-L3 with a right subarticular-foraminal disc extrusion impinging upon the right exiting L2 nerve roots and likely the right transiting L3 nerve roots. This could be better evaluated with nonemergent MRI. In view of the patient's complaints and findings Ortho spine consult was obtained as well as neurology consult to assess for the possibility of acute inflammatory demyelinating polyneuropathy. CT of the cervical spine performed on 06/20/2023 revealed the followin. Multilevel cervical spondylosis. Up to at least moderate spinal canal narrowing at C4-C5. Multilevel moderate to severe neural foraminal stenoses. Degenerative changes could be better evaluated with MRI, as clinically indicated. 2. Bilateral vertebral artery atherosclerosis with probable focal severe stenosis of the mid left vertebral artery. CT of the thoracic spine performed on 06/20/2023 revealed the following: IMPRESSION: 1. No acute fracture or traumatic malalignment in the thoracic spine. 2. Ascending aortic aneurysm measuring up to 4.7 cm. Drug allergies: Ciprofloxacin type reaction unknown Penicillins type reaction unknown Same Avastin type reaction unknown Allopurinol resulted in itching Lisinopril which resulted in a cough Home medications: Eliquis 5 mg p.o. twice daily Vitamin C 500 mg p.o. daily Plavix 75 mg p.o. daily Febuxostst 80 mg p.o. daily Colchicine 0.6 mg p.o. daily Diclofenac 1% topical gel 2 g topically 4 times a day for joint pain Digoxin 0.125 mg p.o. daily Ferrous gluconate 324 mg p.o. daily Lasix 40 mg p.o. as instructed Glucosamine 1500 mg p.o. daily Hydrocodone/acetaminophen 1 p.o. twice daily, as needed pain Isosorbide mononitrate 30 mg p.o. daily Lutein 40 mg p.o. twice daily Magnesium chloride 64 mg p.o. twice daily Multivitamin 1 p.o. daily [facility]-3 fatty acid 1000 mg p.o. twice daily Potassium chloride 10 mEq p.o. daily Prednisone 20 mg tablets to be taken as instructed Crestor 20 mg p.o. nightly Sacubitril/valsartan 49 mg / 51 mg tablets 1/2 tablet p.o. twice daily Sour kumar extract 1000 mg p.o. daily Spironolactone 25 mg p.o. daily Sulfasalazine 500 mg tablets to be taken as instructed Vitamin B complex 1 p.o. daily Past medical history: Atrial fibrillation treated with Eliquis Coronary atherosclerotic heart disease status post coronary artery bypass graft Aortic valve replacement Pacemaker placement Nonmelanoma skin cancer Seropositive rheumatoid arthritis Cerebral infarction Osteoarthritis of the knees bilateral Inflammatory arthritis Mixed hyperlipidemia Essential hypertension Habits: Unknown Review of Systems 2 General: Reports: 10 or more systems reviewed and unremarkable except in HPI and below Medications/Allergies Home Medications Medication Instructions Recorded Confirmed Last Taken Type ascorbic acid (vitamin C) 500 mg 500 mg PO DAILY 02/13/19 06/21/23 06/20/23 History tablet (Vitamin C) ferrous gluconate 324 mg (37.5 mg 324 mg PO DAILY 02/13/19 06/21/23 06/20/23 History iron) tablet glucosamine HCl 1,500 mg tablet 1,500 mg PO DAILY 06/17/19 06/21/23 06/20/23 History lutein 40 mg capsule 40 mg PO BID 06/17/19 06/21/23 06/20/23 History sour kumar extract 1,000 mg 1,000 mg PO DAILY 06/16/20 06/21/23 06/20/23 History capsule (Tart Kumar Extract) Eliquis 5 mg tablet (apixaban) 5 mg PO BID #180 tabs 01/18/23 06/21/23 06/20/23 Rx clopidogrel 75 mg tablet (Plavix) 75 mg PO DAILY #90 tabs 01/18/23 06/21/23 06/20/23 Rx digoxin 125 mcg (0.125 mg) tablet 125 mcg PO DAILY #90 tabs 01/18/23 06/21/23 06/20/23 Rx furosemide 40 mg tablet See Rx Instructions .Route 01/18/23 06/21/23 06/20/23 Rx .COMPLEX #135 tabs isosorbide mononitrate 60 mg 30 mg (1/2 x 60 mg) PO DAILY #90 01/18/23 06/21/23 06/20/23 Rx tablet,extended release 24 hr tabs magnesium chloride 64 mg 64 mg PO BID #180 tabs 01/18/23 06/21/23 06/20/23 Rx (magnesium chloride) tablet,delayed release (Mag 64) potassium chloride 10 mEq 10 meq PO DAILY #90 tabs 01/18/23 06/21/23 06/20/23 Rx tablet,extended release sacubitril 49 mg-valsartan 51 mg 0.5 tab PO BID #90 tabs 01/18/23 06/21/23 06/20/23 Rx tablet (Entresto) spironolactone 25 mg tablet 25 mg PO DAILY #90 tabs 01/18/23 06/21/23 06/20/23 Rx prednisone 20 mg tablet See Rx Instructions PO .COMPLEX 01/19/23 06/21/23 Unknown Rx PRN joint pain flare #30 tabs colchicine 0.6 mg tablet 0.6 mg PO DAILY #90 tabs 03/22/23 06/21/23 06/20/23 Rx diclofenac sodium 1 % topical gel 2 g topical QID joint pain flare 03/22/23 06/21/23 06/20/23 Rx #100 grams febuxostat 40 mg tablet 80 mg (2 x 40 mg) PO DAILY #180 03/22/23 06/21/23 06/20/23 Rx tabs sulfasalazine 500 mg tablet See Rx Instructions .Route 03/22/23 06/21/23 06/20/23 Rx .COMPLEX #360 tabs hydrocodone 5 mg-acetaminophen 325 1 tab PO BID PRN Pain 06/21/23 06/21/23 Unknown History mg tablet multivit,Ca,qcbl-KE-opviwums-lutn 1 tab PO DAILY 06/21/23 06/21/23 06/20/23 History 18 mg-500 mcg-300 mcg-250 mcg tablet omega-3 fatty acids 1,000 mg 1,000 mg PO BID 06/21/23 06/21/23 06/20/23 History capsule rosuvastatin 20 mg tablet 20 mg PO BEDTIME 06/21/23 06/21/23 06/19/23 History vitamin B complex 1 tab PO DAILY 06/21/23 06/21/23 06/20/23 History Allergies Allergy/AdvReac Type Severity Reaction Status Date / Time ciprofloxacin Allergy Unknown unknown Verified 03/22/23 09:40 Penicillins Allergy Unknown unknown Verified 03/22/23 09:40 simvastatin Allergy unknown Verified 03/22/23 09:40 allopurinol AdvReac itching Verified 03/22/23 09:40 lisinopril AdvReac cough Verified 03/22/23 09:40 Current Medications Generic Name Dose Route Start Last Admin Trade Name Freq PRN Reason Stop Dose Admin Dexamethasone 6 mg 06/20/23 23:38 06/20/23 23:56 Dexamethasone 10 Mg/Ml Inj IVP 6 mg Q6H SLIME Administration Doxycycline Hyclate 100 mg/ 100 mls @ 100 mls/hr 06/20/23 23:00 06/21/23 01:52 Sodium Chloride IV Infused Q12H SLIME Infusion Protocol Sodium Chloride 1,000 mls @ 75 mls/hr 06/20/23 23:38 06/20/23 23:50 Sodium Chloride 0.9% IV 75 mls/hr .[id number] SLIME Administration Pantoprazole Sodium 40 mg 06/20/23 23:38 06/20/23 23:54 Pantoprazole 40 Mg Sdv IVP 40 mg Q12H SLIME Administration PFSH Acute 2 PFSH: Medical History History of nonmelanoma skin cancer Gout COVID-19 vaccine administered Macular degeneration Seropositive rheumatoid arthritis of multiple sites Immunization counseling High risk medication use Osteoarthritis of knees, bilateral Inflammatory arthritis Gout, arthritis Edema, peripheral Coronary arteriosclerosis after coronary artery bypass grafting CABG x2 (OLSON to LAD and SVG to OM, 05/08/2008) Cardiomyopathy LVEF has decreased from 45% to 35% by echocardiogram. Aortic valvar stenosis He is due for TAVR at [facility] Cataract Cardiac arrhythmia Pacemaker Dual-chamber Mixed hyperlipidemia last lipid panel 2020: Cholesterol 93, triglycerides 78, LDL 55. Thoracic aneurysm without mention of rupture Ascending aortic aneurysm 4.4cm by CT 07/2017 Essential hypertension Surgical History History of surgical removal of ganglion cyst Hx of cataract surgery S/p TAVR (transcatheter aortic valve replacement), bioprosthetic Hx of CABG Hx of appendectomy H/O foot surgery Family History Mother Dementia Other CAD (coronary artery disease) Diabetes Hyperlipidemia Hypertension Stroke Denies family history of Clotting disorder Psychiatric illness Chronic kidney disease (CKD) Suicide Anesthesia complication Bleeding disorder Family history of premature coronary artery disease Lung disease Cancer Social History Smoking and tobacco/nicotine status: never used tobacco/nicotine Alcohol intake: never Substance/Drug Use: never Household members: significant other Housing: House Vitals/I&O/Wt Last Vital Signs Temp 97.8 F 06/21/23 08:00 Pulse 82 06/21/23 08:00 Resp 18 06/21/23 08:00 BP 107/66 06/21/23 08:00 Pulse Ox 95 06/21/23 08:00 O2 Del Method Room Air 06/21/23 08:00 06/20/23 06/21/23 06/21/23 22:59 06:59 14:59 Intake Total 510 / 510 Output Total 1000 / 1000 Balance -490 / -490 Weight last 48 hrs Weight 198 lb 14.4 oz Weight 189 lb Physical Exam 2 Narrative: The patient is alert. He is hard of hearing. Pupils 3 to 4 mm reactive to light. Motor testing 5/5 in the upper and lower extremities. Deep tendon reflexes trace in upper extremities and areflexia in the lower extremities plantar responses flexor bilaterally. There was no clonus. Sensory examination was intact to touch. Throat clear. Lungs clear without any obvious wheezing. Heart atrial fibrillation extremities were negative for clubbing cyanosis or edema. Urinary Catheter Management: Rutherford: Cath Placed During This Visit: yes Reason for Continuing Indwelling Catheter: Acute Urinary Retention or Obstruction Urinary Catheter Date of Insertion: 06/20/23 Urinary Catheter Time of Insertion: 19:35 Data 06/21/23 04:01 06/21/23 04:01 Micro: Microbiology 06/20/23 19:12 Blood Culture - Preliminary Blood SPECIMEN COLLECTED 06/20/23 19:07 Blood Culture - Preliminary Blood SPECIMEN COLLECTED A&P Assessment and plan (1) Weakness: Impression: 1. Subjective complaints of lower extremity weakness ongoing neurological assessment revealed no obvious focal weakness on examination 06/21/2023. Clinical examination not consistent with acute inflammatory demyelinating polyneuropathy and most likely related to structural spine disease. Note: The patient denied tick bites 2. Bilateral vertebral artery atherosclerotic disease with reports of probable focal severe stenosis of the left mid vertebral artery 3. Ascending aortic aneurysm measuring up to 4.7 cm. 4. Multilevel cervical spondylosis. Up to at least moderate spinal canal narrowing at C4-C5. Multilevel moderate to severe neural foraminal stenoses. Degenerative changes 5. Multilevel lumbar spondylosis. No severe spinal canal stenosis. Multilevel moderate to severe neural foraminal stenoses, most notable at L2-L3 with a right subarticular-foraminal disc extrusion impinging upon the right exiting L2 nerve roots and likely the right transiting L3 nerve roots. 6. Pacemaker placement 7. Atrial fibrillation treated with Eliquis 8. Aortic valve replacement 9. Coronary atherosclerotic heart disease status post coronary artery bypass graft 10. Cardiomyopathy 11. Rheumatoid arthritis 12. Osteoarthritis of the knees bilateral 13. History of chronic low back pain 14. History of chronic right hip pain Plan: 1. Agree with orthospine evaluation 2. Recommend cardiac evaluation for reported ascending aortic aneurysm measuring 4.7 cm 3. Fall precautions 4. Recommend CT angiogram of the head and neck to better assess the reported bilateral vertebral artery atherosclerotic disease and stenosis 5. Recommend lipid-lowering agent if no contraindications (patient reported allergy to Zocor) 6. Consider NCV on the lower extremities to assess for polyneuropathy if orthospine evaluation and structural findings on CTs of the spine does not explain the patient's symptoms. (2) Aortic aneurysm: (3) Vertebral artery stenosis: (4) Degenerative disc disease: Consult Attestations 2 Medical Necessity Statement: The patient was evaluated by neurology to assess for acute inflammatory demyelinating polyneuropathy Coding Level of Care Code 77270 Diagnoses Weakness R53.1 Aortic aneurysm I71.9 Vertebral artery stenosis I65.09 Degenerative disc disease
[2023-06-21] MEDS: isosorbide mononitrate ER 30 mg Tablet PO (08:47)
[2023-06-21] MEDS: digoxin 125 mcg Tablet PO (08:47)
[2023-06-21] MEDS: ascorbic acid 500 mg Tablet PO (08:47)
[2023-06-21] MEDS: dexamethasone 10 mg/mL INJ 6 MG IVP ×2 (08:47→13:59)
[2023-06-21] MEDS: spironolactone 25 mg Tablet PO (08:47)
--- NOTE | 2023-06-21 09:31 | PM.CONSULT ---
Providers/Reason For Consult Consulting Physician/Specialty*: Hospitalist Reason for Consult*: Leg weakness Attending Physician: Alba Stovall MD Primary Care Provider: Destin Chung MD History of Present Illness History of Present Illness Thong Salgado is a 83 year old male reports weakness in the legs.bout 5 weeks ago, he was using a cane, to ambulate, when he put too much pressure on his right hip, since then he has had severe right hip pain, right femur pain, right-sided back pain, pain with range of motion, no neuropathy, no numbness or tingling, no weakness at that time so he was receiving physical therapy, receiving acupuncture, hot stone application, he tells me that his right thigh, right femur pain has improved. Denies any fevers, no chills, no cough, no dysuria, hematuria, no diarrhea, no recent illness. He does report that about a week ago he had a tick bite over his bellybutton which she removed. No recent tick bites since then, or current tick bites. He tells me that yesterday he did not feel well, having fatigue, malaise. This morning when he woke up, he tells me he felt weak in both his legs, both his arms, with difficulty ambulating, no numbness or tingling, no significant pain in his right thigh but he did have back pain, which is chronic for the last 5 weeks, but a bit more than his usual. He tells me that he went to physical therapy but his [id number] had to help him to physical therapy which is unusual, as he normally can ambulate without assistance. He completed physical therapy acupuncture therapy hot stone therapy and again required assistance to ambulate to get back into his car and go home. When he arrived at home, he went to bed, and he tells me that when he got out of bed he was unable to get up out of bed and he fell out of bed, weakness in bilateral extremities, no numbness, no tingling, denies any fevers, no urinary incontinence, no bowel incontinence no saddle or perineal anesthesia, he was found to have urinary retention in the emergency room requiring a Rutherford catheter placement, he denies any constipation but was found to have a large amount of stool in his rectum on CAT scan Review of Systems Const: Denies: fever(s) Card: Denies: chest pain Resp: Denies: dyspnea GI: Denies: abdominal pain : Denies: flank pain Neuro: Denies: headache(s) Medications/Allergies Home Medications Medication Instructions Recorded Confirmed Last Taken Type ascorbic acid (vitamin C) 500 mg 500 mg PO DAILY 02/13/19 06/21/23 06/20/23 History tablet (Vitamin C) ferrous gluconate 324 mg (37.5 mg 324 mg PO DAILY 02/13/19 06/21/23 06/20/23 History iron) tablet glucosamine HCl 1,500 mg tablet 1,500 mg PO DAILY 06/17/19 06/21/23 06/20/23 History lutein 40 mg capsule 40 mg PO BID 06/17/19 06/21/23 06/20/23 History sour kumar extract 1,000 mg 1,000 mg PO DAILY 06/16/20 06/21/23 06/20/23 History capsule (Tart Kumar Extract) Eliquis 5 mg tablet (apixaban) 5 mg PO BID #180 tabs 01/18/23 06/21/23 06/20/23 Rx clopidogrel 75 mg tablet (Plavix) 75 mg PO DAILY #90 tabs 01/18/23 06/21/23 06/20/23 Rx digoxin 125 mcg (0.125 mg) tablet 125 mcg PO DAILY #90 tabs 01/18/23 06/21/23 06/20/23 Rx furosemide 40 mg tablet See Rx Instructions .Route 01/18/23 06/21/23 06/20/23 Rx .COMPLEX #135 tabs isosorbide mononitrate 60 mg 30 mg (1/2 x 60 mg) PO DAILY #90 01/18/23 06/21/23 06/20/23 Rx tablet,extended release 24 hr tabs magnesium chloride 64 mg 64 mg PO BID #180 tabs 01/18/23 06/21/23 06/20/23 Rx (magnesium chloride) tablet,delayed release (Mag 64) potassium chloride 10 mEq 10 meq PO DAILY #90 tabs 01/18/23 06/21/23 06/20/23 Rx tablet,extended release sacubitril 49 mg-valsartan 51 mg 0.5 tab PO BID #90 tabs 01/18/23 06/21/23 06/20/23 Rx tablet (Entresto) spironolactone 25 mg tablet 25 mg PO DAILY #90 tabs 01/18/23 06/21/23 06/20/23 Rx prednisone 20 mg tablet See Rx Instructions PO .COMPLEX 01/19/23 06/21/23 Unknown Rx PRN joint pain flare #30 tabs colchicine 0.6 mg tablet 0.6 mg PO DAILY #90 tabs 03/22/23 06/21/23 06/20/23 Rx diclofenac sodium 1 % topical gel 2 g topical QID joint pain flare 03/22/23 06/21/23 06/20/23 Rx #100 grams febuxostat 40 mg tablet 80 mg (2 x 40 mg) PO DAILY #180 03/22/23 06/21/23 06/20/23 Rx tabs sulfasalazine 500 mg tablet See Rx Instructions .Route 03/22/23 06/21/23 06/20/23 Rx .COMPLEX #360 tabs hydrocodone 5 mg-acetaminophen 325 1 tab PO BID PRN Pain 06/21/23 06/21/23 Unknown History mg tablet multivit,Ca,pqcz-GL-pejitfpv-lutn 1 tab PO DAILY 06/21/23 06/21/23 06/20/23 History 18 mg-500 mcg-300 mcg-250 mcg tablet omega-3 fatty acids 1,000 mg 1,000 mg PO BID 06/21/23 06/21/23 06/20/23 History capsule rosuvastatin 20 mg tablet 20 mg PO BEDTIME 06/21/23 06/21/23 06/19/23 History vitamin B complex 1 tab PO DAILY 06/21/23 06/21/23 06/20/23 History Allergies Allergy/AdvReac Type Severity Reaction Status Date / Time ciprofloxacin Allergy Unknown unknown Verified 03/22/23 09:40 Penicillins Allergy Unknown unknown Verified 03/22/23 09:40 simvastatin Allergy unknown Verified 03/22/23 09:40 allopurinol AdvReac itching Verified 03/22/23 09:40 lisinopril AdvReac cough Verified 03/22/23 09:40 Current Medications Generic Name Dose Route Start Last Admin Trade Name Freq PRN Reason Stop Dose Admin Ascorbic Acid 500 mg 06/21/23 09:00 06/21/23 08:47 Ascorbic Acid 500 Mg Tablet PO 500 mg DAILY SLIME Administration Dexamethasone 6 mg 06/20/23 23:38 06/21/23 08:47 Dexamethasone 10 Mg/Ml Inj IVP 6 mg Q6H SLIME Administration Digoxin 125 mcg 06/21/23 09:00 06/21/23 08:47 Digoxin 125 Mcg Tablet PO 125 mcg DAILY SLIME Administration Doxycycline Hyclate 100 mg/ 100 mls @ 100 mls/hr 06/20/23 23:00 06/21/23 01:52 Sodium Chloride IV Infused Q12H SLIME Infusion Protocol Sodium Chloride 1,000 mls @ 75 mls/hr 06/20/23 23:38 06/20/23 23:50 Sodium Chloride 0.9% IV 75 mls/hr .[id number] SLIME Administration Isosorbide Mononitrate 30 mg 06/21/23 09:00 06/21/23 08:47 Isosorbide Mononitrate Er 30 Mg Tablet PO 30 mg DAILY SLIME Administration Pantoprazole Sodium 40 mg 06/20/23 23:38 06/20/23 23:54 Pantoprazole 40 Mg Sdv IVP 40 mg Q12H SLIME Administration Spironolactone 25 mg 06/21/23 09:00 06/21/23 08:47 Spironolactone 25 Mg Tablet PO 25 mg DAILY SLIME Administration PFSH Acute PFSH: Medical History History of nonmelanoma skin cancer Gout COVID-19 vaccine administered Macular degeneration Seropositive rheumatoid arthritis of multiple sites Immunization counseling High risk medication use Osteoarthritis of knees, bilateral Inflammatory arthritis Gout, arthritis Edema, peripheral Coronary arteriosclerosis after coronary artery bypass grafting CABG x2 (OLSON to LAD and SVG to OM, 05/08/2008) Cardiomyopathy LVEF has decreased from 45% to 35% by echocardiogram. Aortic valvar stenosis He is due for TAVR at [facility] Cataract Cardiac arrhythmia Pacemaker Dual-chamber Mixed hyperlipidemia last lipid panel 2020: Cholesterol 93, triglycerides 78, LDL 55. Thoracic aneurysm without mention of rupture Ascending aortic aneurysm 4.4cm by CT 07/2017 Essential hypertension Surgical History History of surgical removal of ganglion cyst Hx of cataract surgery S/p TAVR (transcatheter aortic valve replacement), bioprosthetic Hx of CABG Hx of appendectomy H/O foot surgery Family History Mother Dementia Other CAD (coronary artery disease) Diabetes Hyperlipidemia Hypertension Stroke Denies family history of Clotting disorder Psychiatric illness Chronic kidney disease (CKD) Suicide Anesthesia complication Bleeding disorder Family history of premature coronary artery disease Lung disease Cancer Social History Smoking and tobacco/nicotine status: never used tobacco/nicotine Alcohol intake: never Substance/Drug Use: never Household members: significant other Housing: House Vitals/I&O/Wt Last Vital Signs Temp 97.8 F 06/21/23 08:00 Pulse 82 06/21/23 08:47 Resp 18 06/21/23 08:00 BP 107/66 06/21/23 08:00 Pulse Ox 95 06/21/23 08:00 O2 Del Method Room Air 06/21/23 08:00 06/20/23 06/21/23 06/21/23 22:59 06:59 14:59 Intake Total 510 / 510 Output Total 1000 / 1000 Balance -490 / -490 Weight last 48 hrs Weight 198 lb 14.4 oz Weight 189 lb Physical Exam Narrative: Sensation intact bilateral lower extremities. Patient has 5 of 5 strength in plantarflexion dorsiflexion and EHL Urinary Catheter Management: Rutherford: Cath Placed During This Visit: yes Reason for Continuing Indwelling Catheter: Acute Urinary Retention or Obstruction Urinary Catheter Date of Insertion: 06/20/23 Urinary Catheter Time of Insertion: 19:35 Data 06/21/23 04:01 06/21/23 04:01 Micro: Microbiology 06/20/23 19:12 Blood Culture - Preliminary Blood SPECIMEN COLLECTED 06/20/23 19:07 Blood Culture - Preliminary Blood SPECIMEN COLLECTED A&P Assessment and plan (1) Lumbar stenosis with neurogenic claudication: CT scans reviewed patient does have stenosis on regular CT. I do not see any areas of severe stenosis to be causing symptoms. However I would like to get a CT myelogram to evaluate neural structures better. At this point patient is on Eliquis and is unable to get a CT myelogram until Monday. At this point patient likely could do this outpatient and follow-up in the clinic. Nerve conduction study EMG would be helpful as well. Coding Level of Care Code Acute Code for [facility] Fwd Diagnoses Lumbar stenosis with neurogenic claudication M48.062
--- NOTE | 2023-06-21 10:12 | CT_ITS ---
WS: [id number] CTA HEAD AND NECK TECHNIQUE: Contrast enhanced CTA of the head and neck with coronal and sagittal reformatted images an d maximum intensity projection (MIP) images. NASCET criteria utilized. CLINICAL INFORMATION: increased ext weakness COMPARISON: None. DLP: 1237.[address] scans at [facility] use at least one of these dose optimization techniques: automated e xposure control; mA and/or kV adjustment per patient size (includes targeted exams where dose is matc hed to clinical indication); or iterative reconstruction. FINDINGS: RIGHT: RIGHT common carotid artery is patent. Mild atheromatous plaque RIGHT carotid bulb extending i nto the ICA. No significant RIGHT ICA stenosis. Retropharyngeal course of the RIGHT ICA. RIGHT ICA is patent to the skull base. LEFT: LEFT common carotid artery is patent. Mild atheromatous plaque LEFT carotid bulb. No significan t LEFT ICA stenosis. LEFT ICA is patent to the skull base. Retropharyngeal course of the LEFT cervica l ICA. RIGHT dominant vertebral artery. Smaller but patent LEFT vertebral artery. LEFT vertebral artery main ly ends in PICA. Proximal basilar artery is patent. Persistent LEFT [employer]. Normal vascularity to the [employer] territory bilaterally. Mild intracranial atheromatous disease. Cavernous carotid calcification. Small LEFT A1 segment. Patent anterior communicating artery. Normal vascularity to the GAMA and MCA territories bilaterally. No proximal flow-limiting stenosis. Bovine ar ch. INTRACRANIAL CTA: CT/CT angio headneck* [id number] IMPRESSION: 1. No evidence intracranial hemorrhage or mass effect. Ventricular system and basilar cisterns are patent. Intracranial vascular calcification. 2. Less than 50% ICA stenosis bilaterally. Retropharyngeal course of both cerv ical ICAs. 3. RIGHT dominant vertebral artery. 4. No proximal flow-limiting intracranial stenosis. 5. Mild intracranial atheromatous disease.
[2023-06-21] MEDS: doxycycline 100 MG in sodium chloride 0.9% (plus) 100 ML IV ×2 (11:18→22:16)
[2023-06-21] MEDS: pantoprazole 40 mg SDV IVP ×2 (11:19→23:10)
[2023-06-21 11:31] LABS: Glucose Point of Care 262 mg/dL (70-110)
[2023-06-21] MEDS: sodium chloride 0.9% 1,000 ML 75 ML IV (11:34)
[2023-06-21] MEDS: iohexol 350 mg/mL 500 mL Btl (per mL) IV (12:36)
--- NOTE | 2023-06-21 13:20 | P.PN_ITS ---
Subjective 2 Subjective: seen this am pt recommended a ct myelogram scheduled for monday CTA head and neck pending this am Vitals/I&O/Wt Last Vital Signs Temp 97.7 F 06/21/23 12:00 Pulse 80 06/21/23 13:11 Resp 18 06/21/23 12:00 BP 131/75 06/21/23 12:00 Pulse Ox 95 06/21/23 12:00 O2 Del Method Room Air 06/21/23 12:00 06/20/23 06/21/23 06/21/23 22:59 06:59 14:59 Intake Total 510 / 510 980 / 980 Output Total 1000 / 1000 Balance -490 / -490 980 / 980 Weight last 48 hrs Weight 90.22 kg Weight 85.729 kg Physical Exam 2 Const: COMMON NORMALS: no acute distress and patient oriented x3 HENMT: COMMON NORMALS: normocephalic HEAD & SCALP: normocephalic Eye: COMMON NORMALS: Equal, round and reactive pupils present PUPIL: Yes Equal, round and reactive pupils present Neck/C-Spine: COMMON NORMALS: no JVD Resp: COMMON NORMALS: normal respiratory effort, No retractions, No use of accessory muscles and clear to auscultation bilaterally AUSCULTATION: clear to auscultation bilaterally Cardio: COMMON NORMALS: no JVD, regular rate, regular rhythm, S1 normal heart sound present and S2 normal heart sound present RATE: regular rate RHYTHM: regular rhythm HEART SOUNDS: S1 normal heart sound present and S2 normal heart sound present GI: COMMON NORMALS: Normal to inspection, nondistended, normoactive bowel sounds present, Soft to palpation, non-tender and No hepatosplenomegaly present PALPATION: Yes Soft to palpation and Yes No hepatosplenomegaly present Extremity: COMMON NORMALS: no calf tenderness and no pedal edema Neuro: COMMON NORMALS: patient oriented x3, CN's II-XII intact bilaterally and moves all extremities Psych: COMMON NORMALS: mental status grossly normal Urinary Catheter Management: Rutherford: Cath Placed During This Visit: yes Reason for Continuing Indwelling Catheter: Acute Urinary Retention or Obstruction Urinary Catheter Date of Insertion: 06/20/23 Urinary Catheter Time of Insertion: 19:35 Data 06/21/23 04:01 06/21/23 04:01 Micro: Microbiology 06/20/23 19:12 Blood Culture - Preliminary Blood SPECIMEN COLLECTED 06/20/23 19:07 Blood Culture - Preliminary Blood SPECIMEN COLLECTED A&P Assessment and plan (1) Weakness of both lower extremities: Bilateral extremity weakness, with trouble ambulating, urinary retention -Complaints of upper extremity weakness, none that I could discern ? No shortness of breath ? Does have significant bilateral knee weakness strength 1 out of 5 ? Bilateral lower and upper extremity reflexes are absent or diminished bilaterally ? Cannot do an MRI given his pacemaker ? White blood cell count within normal limits -CRP 28.4, Pro-Evert, sed rate within normal limits ? Respiratory viral panel within normal limits CT lumbar spine ? CT/CT lumbar spine w con [id number] IMPRESSION: 1. Multilevel lumbar spondylosis. No severe spinal canal stenosis. 2. Multilevel moderate to severe neural foraminal stenoses, most notable at L2-L3 with a right subarticular-foraminal disc extrusion impinging upon the right exiting L2 nerve roots and likely the right transiting L3 nerve roots. This could be better evaluated with nonemergent MRI. -Differential diagnosis, concerning for Guillain-Velez? syndrome versus CIDP versus multilevel severe foraminal stenosis/spinal canal stenosis, or nerve impingement versus cauda equina syndrome ?Plan ? Given patient's nerve impingement L2, complaints of back pain, there is significant concern for cauda equina syndrome, ? Will start him on Decadron 6 mg IV push every 6 hours, Protonix 40 mg IV twice daily ? Keep n.p.o. after midnight, hold Plavix, hold Eliquis, in case he needs surgical decompression ? Spoke to Dr. Vergara, cannot do an MRI given patient's pacemaker, ordered a CT myelogram of the lumbar spine tomorrow, he will see tomorrow ? My other thought was the possibility of Guillain-Velez? syndrome versus CIDP, given loss of reflexes bilateral upper and lower extremities, he denies any ascending weakness, spoke to neurology, Dr. Avalos, will consult, CT cervical and lumbar spine, will continue to monitor, will consider IVIG based on further workup and clinical progress ? Neurochecks ? Monitor neurologic status closely, ? Full code ? SCDs for DVT prophylaxis Elevated lactic acid, UA within normal limits, chest x-ray no focal pneumonia, CT abdomen no focal findings, continue IV fluids, monitor TOdays plan 06/20 - continue above plan as per hnp - check cta head and neck today as per neuro recs - Will discuss with dr vergara regarding further plan - ct myelogram monday - continue ot hold vivian Attestations 2 Medical Necessity Statement*: Patient requires hospitalization, inpatient, greater than 2 midnights, for bilateral extremity weakness, concerning for cauda equina syndrome versus Guillain-Velez? Diagnoses Weakness of both lower extremities R29.896
[2023-06-21] MEDS: fixodent 39 gm Tube 1 APPLIC DENTAL (13:58)
[2023-06-21 15:03] LABS: Glucose Point of Care 262 mg/dL (70-110)
[2023-06-21 16:26] LABS: Glucose Point of Care 201 mg/dL (70-110)
[2023-06-21] MEDS: insulin lispro 100 unit/1 mL SUBCUT (16:50)
--- NOTE | 2023-06-21 18:41 | PC.NURSE ---
SHIFT SUMMARY Patient has done very well today. No complaints of pain. Worked with PT and OT. Walked to the door and back and to the bathroom. Walked well with walker. Sat up in the chair all afternoon and tolerated well. Good PO intake and output.
[2023-06-21 20:40] LABS: Glucose Point of Care 266 mg/dL (70-110)
[2023-06-22] VITALS (8 sets, daily range): BP systolic 116–141; BP diastolic 71–78; PULSE 79–83; RESP 16–19; TEMP 36.8–38.3; O2SAT 93–96
[2023-06-22] MEDS: sodium chloride 0.9% 1,000 ML 75 ML IV (02:03)
[2023-06-22 06:35] LABS: Glucose Point of Care 136 mg/dL (70-110)
[2023-06-22 06:42] LABS: Basophils % 0.3 %; Hematocrit 38.4 % (37-53); Lymphocytes # 0.5 10^3/uL (0.8-4.8); Lymphocytes % 11.9 %; Mean Corpuscular HGB Conc 33.6 g/dL (30-55); Mean Corpuscular Hemoglobin 30.6 pg (27-33); Mean Corpuscular Volume 91.2 fl (82-101); Mean Platelet Volume 9.2 fL (7.4-10.4); Monocytes # 0.2 10^3/uL (0.2-0.9); Monocytes % 5.7 %; Neutrophils # 3.17 10^3/uL (1.8-7.7); Neutrophils % 81.6 %; Nucleated Red Blood Cells % 0 %; Platelet Count 165 10^3/cmm (157-399); Red Blood Count 4.21 10^6/uL (3.85-5.65); Red Cell Distribution Width 13.7 % (12.1-15.1); White Blood Count 3.88 10^3/uL (3.29-11.43)
[2023-06-22 07:01] LABS: Alanine Aminotransferase 51 U/L (0-41); Albumin Level 3.6 g/dL (3.5-5.2); Alkaline Phosphatase 54 U/L (40-130); Anion Gap 14.9 (5-19); Aspartate Amino Transferase 57 U/L (0-40); Blood Urea Nitrogen 23 mg/dL (8-23); Calcium 8.5 mg/dL (8.5-10.5); Carbon Dioxide 23 mmol/L (22-29); Chloride 103 mmol/L (98-107); Creatinine Clr Calc Pharmacy 70.7077; Globulin 2.9 g/dL (1.3-4.6); Glucose 136 mg/dL (65-115); Magnesium 2.1 mg/dL (1.7-2.3); Osmolality Calculated 290 mOsm/kg (285-295); Potassium 3.9 mmol/L (3.5-5.1); Sodium 137 mmol/L (136-145); Total Bilirubin 0.3 mg/dL (0.15-1.2); Total Protein 6.5 g/dL (6.6-8.7)
[2023-06-22] MEDS: ascorbic acid 500 mg Tablet PO (08:13)
[2023-06-22] MEDS: digoxin 125 mcg Tablet PO (08:13)
[2023-06-22] MEDS: isosorbide mononitrate ER 30 mg Tablet PO (08:13)
[2023-06-22] MEDS: spironolactone 25 mg Tablet PO (08:14)
[2023-06-22 11:44] LABS: Glucose Point of Care 118 mg/dL (70-110)
[2023-06-22] MEDS: pantoprazole 40 mg SDV IVP ×2 (12:06→23:07)
--- NOTE | 2023-06-22 12:06 | PC.OT ---
OT TREATMENT ATTEMPTED; PATIENT REPORTS THAT HE WOULD LIKE TO PERFORM GROOMING AFTER LUNCH.
[2023-06-22] MEDS: doxycycline 100 MG in sodium chloride 0.9% (plus) 100 ML IV ×2 (12:07→23:07)
--- NOTE | 2023-06-22 12:55 | P.PN_ITS ---
Subjective 2 Subjective: seen today feels better lifts both legs off the bed and SAYS WOW I COULDNT DO THAT BEFORE Vitals/I&O/Wt Last Vital Signs Temp 98.5 F 06/22/23 11:26 Pulse 81 06/22/23 11:26 Resp 16 06/22/23 11:26 BP 122/78 06/22/23 11:26 Pulse Ox 94 06/22/23 11:26 O2 Del Method Room Air 06/22/23 11:26 06/21/23 06/22/23 06/22/23 22:59 06:59 14:59 Intake Total 840 / 2300 1580 / 3880 240 / 240 Output Total 950 / 1750 450 / 2200 Balance -110 / 550 1130 / 1680 240 / 240 Weight last 48 hrs Weight 91.444 kg Weight 90.22 kg Weight 85.729 kg Physical Exam 2 Const: COMMON NORMALS: no acute distress and patient oriented x3 HENMT: COMMON NORMALS: normocephalic HEAD & SCALP: normocephalic Eye: COMMON NORMALS: Equal, round and reactive pupils present PUPIL: Yes Equal, round and reactive pupils present Neck/C-Spine: COMMON NORMALS: no JVD Resp: COMMON NORMALS: normal respiratory effort, No retractions, No use of accessory muscles and clear to auscultation bilaterally AUSCULTATION: clear to auscultation bilaterally Cardio: COMMON NORMALS: no JVD, regular rate, regular rhythm, S1 normal heart sound present and S2 normal heart sound present RATE: regular rate RHYTHM: regular rhythm HEART SOUNDS: S1 normal heart sound present and S2 normal heart sound present GI: COMMON NORMALS: Normal to inspection, nondistended, normoactive bowel sounds present, Soft to palpation, non-tender and No hepatosplenomegaly present PALPATION: Yes Soft to palpation and Yes No hepatosplenomegaly present Extremity: COMMON NORMALS: no calf tenderness and no pedal edema Neuro: COMMON NORMALS: patient oriented x3, CN's II-XII intact bilaterally and moves all extremities Psych: COMMON NORMALS: mental status grossly normal Urinary Catheter Management: Rutherford: Cath Placed During This Visit: yes Reason for Continuing Indwelling Catheter: Other Urinary Catheter Date of Insertion: 06/20/23 Urinary Catheter Time of Insertion: 19:35 Data 06/22/23 06:04 06/22/23 06:04 Micro: Microbiology 06/20/23 19:12 Blood Culture - Preliminary Blood NEGATIVE TO DATE 06/20/23 19:07 Blood Culture - Preliminary Blood NEGATIVE TO DATE A&P Assessment and plan (1) Weakness of both lower extremities: Bilateral extremity weakness, with trouble ambulating, urinary retention -Complaints of upper extremity weakness, none that I could discern ? No shortness of breath ? Does have significant bilateral knee weakness strength 1 out of 5 ? Bilateral lower and upper extremity reflexes are absent or diminished bilaterally ? Cannot do an MRI given his pacemaker ? White blood cell count within normal limits -CRP 28.4, Pro-Evert, sed rate within normal limits ? Respiratory viral panel within normal limits CT lumbar spine ? CT/CT lumbar spine w con [id number] IMPRESSION: 1. Multilevel lumbar spondylosis. No severe spinal canal stenosis. 2. Multilevel moderate to severe neural foraminal stenoses, most notable at L2-L3 with a right subarticular-foraminal disc extrusion impinging upon the right exiting L2 nerve roots and likely the right transiting L3 nerve roots. This could be better evaluated with nonemergent MRI. -Differential diagnosis, concerning for Guillain-Velez? syndrome versus CIDP versus multilevel severe foraminal stenosis/spinal canal stenosis, or nerve impingement versus cauda equina syndrome ?Plan ? Given patient's nerve impingement L2, complaints of back pain, there is significant concern for cauda equina syndrome, ? Will start him on Decadron 6 mg IV push every 6 hours, Protonix 40 mg IV twice daily ? Keep n.p.o. after midnight, hold Plavix, hold Eliquis, in case he needs surgical decompression ? Spoke to Dr. Vergara, cannot do an MRI given patient's pacemaker, ordered a CT myelogram of the lumbar spine tomorrow, he will see tomorrow ? My other thought was the possibility of Guillain-Velez? syndrome versus CIDP, given loss of reflexes bilateral upper and lower extremities, he denies any ascending weakness, spoke to neurology, Dr. Avalos, will consult, CT cervical and lumbar spine, will continue to monitor, will consider IVIG based on further workup and clinical progress ? Neurochecks ? Monitor neurologic status closely, ? Full code ? SCDs for DVT prophylaxis Elevated lactic acid, UA within normal limits, chest x-ray no focal pneumonia, CT abdomen no focal findings, continue IV fluids, monitor TOdays plan 06/21 - continue above plan as per hnp - check cta head and neck today as per neuro recs. Reviewed - Will discuss with dr vergara regarding further plan - ct myelogram monday - continue ot hold eliquis Dexamethasone 6 IV q24h Attestations 2 Medical Necessity Statement*: Patient requires hospitalization, inpatient, greater than 2 midnights, for bilateral extremity weakness, concerning for cauda equina syndrome versus Guillain-Velez? Diagnoses Weakness of both lower extremities R29.891
[2023-06-22 13:19] LABS: Lyme AB Screen <0.90 index
[2023-06-22] MEDS: dexamethasone 10 mg/mL INJ 6 MG IVP (14:47)
--- NOTE | 2023-06-22 15:00 | PC.NURSE ---
1200 - When this RN checks IV with NS and pushes Protonix, pt states that his IV hurts. This RN stops push and verifies patency of IV. IV able to draw blood and pt denies further pain. For the next few hours, pt keeps mentioning the IV medication and worries about IV. This RN changes IV to a new location for peace of mind. No swelling, redness, or drainage noted to previous IV site.
[2023-06-22 16:42] LABS: Glucose Point of Care 131 mg/dL (70-110)
[2023-06-22] MEDS: acetaminophen 325 mg Tablet 650 MG PO (17:36)
--- NOTE | 2023-06-22 19:07 | ECG_ITS ---
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 Measurements Intervals [place] Rate: 87 P: 0 SC: 0 QRS: -87 QRSD: 184 T: 120 QT: 382 QTc: 462 Interpretive Statements ELECTRONIC VENTRICULAR PACEMAKER ABNORMAL RHYTHM ECG Compared to ECG 06/21/2023 00:26:31 No significant changes Electronically Signed On 06-23-2023 0:09:16 CDT by Hamzah Montes M.D. [id number]
--- NOTE | 2023-06-22 19:52 | USCV_ITS ---
Thong Salgado Age: 83 Gender: M : 1940 Exam Date: 06/22/2023 20:12 Ordering Phys: Thor Kovacs MD Technologist: NETO Exam Location: [facility] [place] Indication: order says: dvt . No history of DVT per patient. BLE do not appear swollen. There is no erythema. HISTORY: order says: dvt . No history of DVT per patient. BLE do not appear swollen. There is no erythema. PROCEDURES: Venous duplex imaging was performed in bilateral lower extremities. The following venous structures were evaluated: common femoral vein, profunda vein, proximal portion of the greater saphenous vein, superficial femoral vein, and the popliteal vein. In addition, the posterior tibial and peroneal veins were evaluated. Serial compression, augmentation maneuvers, and spectral Doppler flow evaluation were performed, which werre normal. Bilaterally, the common femoral, superficial femoral, profunda femoral, popliteal, posterior tibial, greater saphenous veins, and the peroneal veins were identified and interrogated in the standard fashion. These veins were found to be easily compressible with spontaneous blood flow. No evidence of thrombus noted. CONCLUSIONS No evidence of left lower extremity DVT. No evidence of right lower extremity DVT. Hilario Tovar MD (Electronically Signed) Final Date: 23 Jun 2023 10:28 S
--- NOTE | 2023-06-22 19:56 | XRR_ITS ---
PROCEDURE INFORMATION: Exam: XR Chest Exam date and time: 06/22/2023 8:08 PM Age: 83 years old Clinical indication: Other: Weakness; Additional info: SOB new oxygen requirments TECHNIQUE: Imaging protocol: Radiologic exam of the chest. Views: 1 view. COMPARISON: CR (CHEST, ) 06/20/2023 8:15 PM FINDINGS: Lungs: Stable moderate interstitial prominence. No consolidation. Pleural spaces: No pleural effusion or pneumothorax. Heart/Mediastinum: The cardiomediastinal silhouette is stable. Bones/joints: No acute osseous abnormalities are seen. XR/XR chest 1V portable [id number] IMPRESSION: Stable radiographic appearance of the chest.
[2023-06-22 20:12] LABS: ABG PCO2 27.9 mmHg (35-45); ABG PH Result 7.48 (7.35-7.45); Arterial Blood Gas Hematocrit 41.2 % (42-52); Base Excess ABG -1.3 mmol/L (-2.0-2.0); Blood Gas Allen Test Pos; Blood Gas Sample Site Brachial, right; Blood Gas Sample Type Arterial; Carboxyhemoglobin 1.1 %THgb (0.4-20.1); HCO3 ABG 20.9 mmol/L (22-26); HGB O2 Sat 94.7 % (95-100); Ionized Calcium Level - ABG 1.2 mmol/L (1.1-1.4); Methemoglobin 0.8 % (0.4-1.5); Oxygen Device NC; Oxygen Saturation ABG 96.5; PO2 ABG 74.2 mmHg (80.0-100.0); Potassium Level - ABG 3.6 mmol/L (3.5-5.0); Total Hemoglobin 13.4 g/dL (14-18)
[2023-06-22 20:50] LABS: Glucose Point of Care 203 mg/dL (70-110)
[2023-06-22] MEDS: FUROsemide 10 mg/mL SDV 4mL 40 MG IVP (21:24)
[2023-06-22 21:31] LABS: Basophils % 0.2 %; Hematocrit 37.1 % (37-53); Lymphocytes # 0.6 10^3/uL (0.8-4.8); Lymphocytes % 10.5 %; Mean Corpuscular HGB Conc 33.7 g/dL (30-55); Mean Corpuscular Hemoglobin 30.8 pg (27-33); Mean Corpuscular Volume 91.4 fl (82-101); Mean Platelet Volume 9.6 fL (7.4-10.4); Monocytes # 0.3 10^3/uL (0.2-0.9); Monocytes % 5.6 %; Neutrophils # 5.06 10^3/uL (1.8-7.7); Neutrophils % 83.4 %; Nucleated Red Blood Cells % 0 %; Platelet Count 152 10^3/cmm (157-399); Red Blood Count 4.06 10^6/uL (3.85-5.65); Red Cell Distribution Width 13.7 % (12.1-15.1); White Blood Count 6.07 10^3/uL (3.29-11.43)
[2023-06-22 21:38] LABS: D Dimer 1.17 ug/mLFEU (0-0.59)
[2023-06-22 21:45] LABS: Lactic Sepsis W/Reflex 1.7 mmol/L (0.5-2.2)
[2023-06-22 21:46] LABS: Troponin(5th) Baseline 61 ng/L (0-15)
[2023-06-22 21:55] LABS: NT Pro B Type Natriuretic Pept 2544 pg/mL (0-450); Procalcitonin 0.31 ng/mL (0-0.5); Slide Review Slide Review Perform
--- NOTE | 2023-06-22 21:57 | ECG_ITS ---
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 Measurements Intervals [place] Rate: 86 P: 0 AK: 0 QRS: -87 QRSD: 206 T: 89 QT: 436 QTc: 522 Interpretive Statements ELECTRONIC VENTRICULAR PACEMAKER ABNORMAL RHYTHM ECG Compared to ECG 06/22/2023 19:08:02 No significant changes Electronically Signed On 06-23-2023 8:20:49 CDT by Fabiola Paige M.D. [id number]
[2023-06-22 22:06] LABS: Alanine Aminotransferase 87 U/L (0-41); Albumin Level 3.7 g/dL (3.5-5.2); Alkaline Phosphatase 61 U/L (40-130); Aspartate Amino Transferase 100 U/L (0-40); Blood Urea Nitrogen 23 mg/dL (8-23); Calcium 8.8 mg/dL (8.5-10.5); Carbon Dioxide 20 mmol/L (22-29); Chloride 102 mmol/L (98-107); Globulin 2.4 g/dL (1.3-4.6); Glucose 192 mg/dL (65-115); Osmolality Calculated 289 mOsm/kg (285-295); Sodium 135 mmol/L (136-145); Total Bilirubin 0.3 mg/dL (0.15-1.2); Total Protein 6.1 g/dL (6.6-8.7)
[2023-06-22 22:10] LABS: Adenovirus Not Detected (NOT DETECT); Chlamydia Pneumoniae Not Detected (NOT DETECT); Coronavirus 229E,HKU1,NL63,OC4 Not Detected (NOT DETECT); Human Metapneumovirus Not Detected (NOT DETECT); Human Rhinovirus/Enterovirus Not Detected (NOT DETECT); Influenza A Not Detected (NOT DETECT); Influenza A H1 Not Detected (NOT DETECT); Influenza A H1-2009 Not Detected (NOT DETECT); Influenza A H3 Not Detected (NOT DETECT); Influenza B Not Detected (NOT DETECT); Mycoplasma Pneumoniae Not Detected (NOT DETECT); Parainfluenza Virus Type 1 Not Detected (NOT DETECT); Parainfluenza Virus Type 2 Not Detected (NOT DETECT); Parainfluenza Virus Type 3 Not Detected (NOT DETECT); Parainfluenza Virus Type 4 Not Detected (NOT DETECT); Respiratory Syncytial Virus A Not Detected (NOT DETECT); Respiratory Syncytial Virus B Not Detected (NOT DETECT); SARS-COV-2 Not Detected (NOT DETECT)
[2023-06-23] VITALS: BP 125/72; PULSE 80; RESP 18; TEMP 36.9; O2SAT 98
[2023-06-23] LABS: Troponin 5 2HR 61.02 ng/L (0-15); Troponin 5 2HR Delta 0.02 ABS# (0-10)
--- NOTE | 2023-06-23 01:57 | ECG_ITS ---
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 Measurements Intervals [place] Rate: 80 P: 0 ID: 0 QRS: -74 QRSD: 208 T: 107 QT: 458 QTc: 528 Interpretive Statements ELECTRONIC VENTRICULAR PACEMAKER ABNORMAL RHYTHM ECG Compared to ECG 06/22/2023 22:21:14 No significant changes Electronically Signed On 06-23-2023 8:18:38 CDT by Fabiola Paige M.D. [id number]
[2023-06-23 03:49] LABS: Basophils % 0.3 %; Hematocrit 38.7 % (37-53); Lymphocytes # 1.2 10^3/uL (0.8-4.8); Lymphocytes % 20.4 %; Mean Corpuscular HGB Conc 33.3 g/dL (30-55); Mean Corpuscular Hemoglobin 31.4 pg (27-33); Mean Corpuscular Volume 94.2 fl (82-101); Mean Platelet Volume 9.4 fL (7.4-10.4); Monocytes # 0.4 10^3/uL (0.2-0.9); Monocytes % 7.7 %; Neutrophils # 4.09 10^3/uL (1.8-7.7); Neutrophils % 71.3 %; Nucleated Red Blood Cells % 0 %; Platelet Count 146 10^3/cmm (157-399); Red Blood Count 4.11 10^6/uL (3.85-5.65); Red Cell Distribution Width 13.7 % (12.1-15.1); White Blood Count 5.74 10^3/uL (3.29-11.43)
[2023-06-23 04:00] VITALS: BP 112/75; PULSE 79; RESP 18; TEMP 36.6; O2SAT 97
[2023-06-23 04:06] LABS: Troponin 5 6HR 45.38 ng/L (0-15)
[2023-06-23 04:07] LABS: Anion Gap 15.2 (5-19); Blood Urea Nitrogen 21 mg/dL (8-23); Calcium 8.9 mg/dL (8.5-10.5); Carbon Dioxide 25 mmol/L (22-29); Chloride 102 mmol/L (98-107); Glucose 151 mg/dL (65-115); Osmolality Calculated 292 mOsm/kg (285-295); Potassium 4.2 mmol/L (3.5-5.1); Sodium 138 mmol/L (136-145); Troponin 5 6HR Delta -15.62 ng/L (0-12)
[2023-06-23 04:16] LABS: Slide Review Slide Review Perform
[2023-06-23 04:59] VITALS: PULSE 84
[2023-06-23 06:41] LABS: Glucose Point of Care 139 mg/dL (70-110)
[2023-06-23 07:39] VITALS: BP 152/87; PULSE 80; RESP 16; TEMP 36.9; O2SAT 95
[2023-06-23] MEDS: FUROsemide 10 mg/mL SDV 4mL 40 MG IVP (08:43)
[2023-06-23] MEDS: sacubitril/valsartan 24-26 mg Tablet 1 EACH PO (08:43)
[2023-06-23 08:44] VITALS: PULSE 108
[2023-06-23] MEDS: spironolactone 25 mg Tablet PO (08:44)
[2023-06-23] MEDS: isosorbide mononitrate ER 30 mg Tablet PO (08:44)
[2023-06-23] MEDS: ascorbic acid 500 mg Tablet PO (08:44)
[2023-06-23] MEDS: digoxin 125 mcg Tablet PO (08:44)
--- NOTE | 2023-06-23 09:00 | IR_ITS ---
WS: [id number] LUMBAR MYELOGRAM HISTORY: back pain COMPARISON: None available. FLUOROSCOPY TIME: 2min [id number] # of spot films: 8 Procedure, risks and complications were explained to the patient. Risks including bleeding, infection , headaches, allergic reaction and seizures. Consent has been obtained. With the patient in prone position the skin over the lumbar region is cleansed with ChloraPrep and an esthetized with lidocaine. 22-gauge spinal needle is inserted into the thecal sac at the appropriate level determined by fluoroscopy. Omnipaque 240; 12 ml is injected slowly under fluoroscopy with no co mplications. Needle bevel is perpendicular to the longitudinal fibers of the dura. Stylet is reinsert ed prior to removal of the needle. Patient tolerated the procedure well. Patient will proceed to CT f or further evaluation. Injected contrast is collecting in the mid lordotic curvature of the lumbar spine. No significant bala nosis or compromise of the central canal is identified. Will attempt to see the upper lumbar and the lower lumbar spine better on the CT to follow. Osteophytes throughout the lumbar spine. Atherosclerosis aorta. IR/IR myelogram sp lumbar [id number] IMPRESSION: 1. Uncomplicated lumbar myelogram. 2. Contrast is collecting in the increased lordosis of the lumbar spine. No si gnificant stenosis or impingement on the central canal of the lumbar spine. 3. CT myelogram to follow.
--- NOTE | 2023-06-23 11:17 | P.PN_ITS ---
Subjective 2 Subjective: Seen this morning. Patient was hypoxic yesterday evening and was placed on 5 L nasal cannula at bedside. Lungs are clear to auscultation at this time. Patient given a dose of Lasix last night and another dose this morning. No conversational dyspnea does not appear short of breath. Sitting up in recliner at this time. Vitals/I&O/Wt Last Vital Signs Temp 98.4 F 06/23/23 07:39 Pulse 108 H 06/23/23 08:44 Resp 16 06/23/23 07:39 BP 152/87 06/23/23 07:39 Pulse Ox 95 06/23/23 07:39 O2 Del Method Nasal Cannula 06/23/23 07:39 O2 Flow Rate 5 06/23/23 07:39 06/22/23 06/23/23 06/23/23 22:59 06:59 14:59 Intake Total 0 / 580 100 / 680 Output Total 1000 / 1000 1550 / 2550 Balance -1000 / -420 -1450 / -1870 Weight last 48 hrs Weight 93.168 kg Weight 91.444 kg Physical Exam 2 Const: COMMON NORMALS: no acute distress and patient oriented x3 HENMT: COMMON NORMALS: normocephalic HEAD & SCALP: normocephalic Eye: COMMON NORMALS: Equal, round and reactive pupils present PUPIL: Yes Equal, round and reactive pupils present Neck/C-Spine: COMMON NORMALS: no JVD Resp: COMMON NORMALS: normal respiratory effort, No retractions, No use of accessory muscles and clear to auscultation bilaterally AUSCULTATION: clear to auscultation bilaterally Cardio: COMMON NORMALS: no JVD, regular rate, regular rhythm, S1 normal heart sound present and S2 normal heart sound present RATE: regular rate RHYTHM: regular rhythm HEART SOUNDS: S1 normal heart sound present and S2 normal heart sound present GI: COMMON NORMALS: Normal to inspection, nondistended, normoactive bowel sounds present, Soft to palpation, non-tender and No hepatosplenomegaly present PALPATION: Yes Soft to palpation and Yes No hepatosplenomegaly present Extremity: COMMON NORMALS: no calf tenderness and no pedal edema Neuro: COMMON NORMALS: patient oriented x3, CN's II-XII intact bilaterally and moves all extremities Psych: COMMON NORMALS: mental status grossly normal Urinary Catheter Management: Rutherford: Cath Placed During This Visit: yes Reason for Continuing Indwelling Catheter: Other Urinary Catheter Date of Insertion: 06/20/23 Urinary Catheter Time of Insertion: 19:35 Data 06/23/23 03:38 06/23/23 03:38 Micro: Microbiology 06/22/23 21:11 Blood Culture - Preliminary Blood SPECIMEN COLLECTED 06/22/23 21:05 Blood Culture - Preliminary Blood SPECIMEN COLLECTED A&P Assessment and plan (1) Weakness of both lower extremities: Bilateral extremity weakness, with trouble ambulating, urinary retention -Complaints of upper extremity weakness, none that I could discern ? No shortness of breath ? Does have significant bilateral knee weakness strength 1 out of 5 ? Bilateral lower and upper extremity reflexes are absent or diminished bilaterally ? Cannot do an MRI given his pacemaker ? White blood cell count within normal limits -CRP 28.4, Pro-Evert, sed rate within normal limits ? Respiratory viral panel within normal limits CT lumbar spine ? CT/CT lumbar spine w con [id number] IMPRESSION: 1. Multilevel lumbar spondylosis. No severe spinal canal stenosis. 2. Multilevel moderate to severe neural foraminal stenoses, most notable at L2-L3 with a right subarticular-foraminal disc extrusion impinging upon the right exiting L2 nerve roots and likely the right transiting L3 nerve roots. This could be better evaluated with nonemergent MRI. -Differential diagnosis, concerning for Guillain-Velez? syndrome versus CIDP versus multilevel severe foraminal stenosis/spinal canal stenosis, or nerve impingement versus cauda equina syndrome ?Plan ? Given patient's nerve impingement L2, complaints of back pain, there is significant concern for cauda equina syndrome, ? Will start him on Decadron 6 mg IV push every 6 hours, Protonix 40 mg IV twice daily ? Keep n.p.o. after midnight, hold Plavix, hold Eliquis, in case he needs surgical decompression ? Spoke to Dr. Vergara, cannot do an MRI given patient's pacemaker, ordered a CT myelogram of the lumbar spine tomorrow, he will see tomorrow ? My other thought was the possibility of Guillain-Velez? syndrome versus CIDP, given loss of reflexes bilateral upper and lower extremities, he denies any ascending weakness, spoke to neurology, Dr. Avalos, will consult, CT cervical and lumbar spine, will continue to monitor, will consider IVIG based on further workup and clinical progress ? Neurochecks ? Monitor neurologic status closely, ? Full code ? SCDs for DVT prophylaxis Elevated lactic acid, UA within normal limits, chest x-ray no focal pneumonia, CT abdomen no focal findings, continue IV fluids, monitor TOdays plan 06/22 - continue above plan as per hnp - check cta head and neck today as per neuro recs. Reviewed - Will discuss with dr vergara regarding further plan. Further management received dictated as per results of CT myelogram. Dr. Vergara suggested to keep patient on steroids dexamethasone 6 every 24 hours. Clinically patient has improved. Weakness is better. - ct myelogram today ? Lasix 40 IV daily ? Restart Entresto. Initially it was held in anticipation for surgery however we do not have coverage over the weekend and surgery may be pushed to Monday if required. Depending upon results of CT myelogram further management to be dictated. - continue ot hold eliquis Dexamethasone 6 IV q24h Attestations 2 Medical Necessity Statement*: Patient requires hospitalization, inpatient, greater than 2 midnights, for bilateral extremity weakness, concerning for cauda equina syndrome versus Guillain-Velez? Diagnoses Weakness of both lower extremities R29.89
--- NOTE | 2023-06-23 11:24 | CT_ITS ---
WS: [id number] CT MYELOGRAM LUMBAR SPINE HISTORY: BACK PAIN TECHNIQUE: Contiguous 2.0 mm axial imaging performed from T12 through the mid sacral level. Bone and soft tissue windows reviewed. Sagittal and coronal reformats are submitted and reviewed. DLP: 410.[address] scans at [facility] use at least one of these dose optimization techniques: automated e xposure control; mA and/or kV adjustment per patient size (includes targeted exams where dose is matc hed to clinical indication); or iterative reconstruction. COMPARISON: 06/20/2023 Postcontrast imaging is performed with the patient supine. The injected contrast is noted to be colle cting within the thoracic spine and also within the lower sacral spine due to the marked increase in the lumbar lordosis. Patient refused to roll prior to the CT. We also attempted to bring the patient back for prone imagin g but were unsuccessful on having patient brought back to the radiology department by nursing. Opal rodriguez was informed numerous times on the importance of bring the patient back to the radiology department for imaging so the contrast was not absorbed without success. Marked increase in the lumbar lordosis. L1 retrolisthesis by 3 mm. L4 anterolisthesis by 2 mm. Facet joints are narrowed. Mild disc desiccation and osteophytosis. Contrast is noted within the lower thor acic spine that majority is collected in the sacral thecal sac. L1-L2: Disc bulging and osteophytic ridging. No high-grade stenosis. L2-L3: Diffuse annular disc bulging is asymmetric encroaching upon the ventral thecal sac. There is i ncreased soft tissue in the RIGHT foramen which is probably disc protrusion. Suspect at least mild ce ntral and RIGHT foraminal stenosis. Contrast opacification is suboptimal. L3-L4: Diffuse annular disc bulging with osteophytic ridging. No high-grade stenosis. L4-L5: Diffuse annular disc bulging with moderate facet joint arthritis. Mild bilateral foraminal bala nosis. L5-S1: Diffuse annular disc bulging with osteophytic ridging. At least mild bilateral foraminal steno sis. Atherosclerotic changes within the abdominal aorta. Splenic artery calcifications. RIGHT renal cyst. CT/CT lumbar spine w con [id number] IMPRESSION: 1. Poor opacification of the mid lumbar spine thecal sac due to marked increas e in the lumbar lordosis. We did attempt to repeat lumbar spine CT imaging with the patient prone but nursing was unable to bring the patient back to [facility] for repeat imaging. 2. L2-3: Diffuse annular disc bulging asymmetric to the RIGHT. Complete efface ment of fat in the RIGHT foramen which is probably a disc protrusion. Also susp ect at least mild central and RIGHT subarticular recess encroachment. Limited i maging evaluation without better subarachnoid contrast. There is an abrupt term ination of contrast noted at the L2-3 level on the myelogram. These findings ar e suspicious for high-grade stenosis at L2-3. Not a complete stenosis as on the CT portion there was contrast extending into the thoracic subarachnoid space. 3. Facet joint arthritis with mild bilateral foraminal stenosis at L4-5 and L5 -S1. Notified Alba Stovall MD at 06/23/2023 1:33 PM.
[2023-06-23] MEDS: iohexol 350 mg/mL 100 mL Btl INTRA-ARTI (11:57)
[2023-06-23] MEDS: pantoprazole 40 mg SDV IVP (12:01)
[2023-06-23] MEDS: doxycycline 100 MG in sodium chloride 0.9% (plus) 100 ML IV (12:01)
--- NOTE | 2023-06-23 12:16 | PC.OT ---
OT treatment session attempted with pt going to procedure; will attempt treatment session at later time.
--- NOTE | 2023-06-23 14:09 | CT_ITS ---
WS: [id number] CT MYELOGRAM LUMBAR SPINE HISTORY: POST MYELOGRAM, delayed imaging of the lumbar myelogram in prone position. To be read in con junction with the prior CT lumbar myelogram. TECHNIQUE: Contiguous 2.0 mm axial imaging performed from T12 through the mid sacral level. Bone and soft tissue windows reviewed. Sagittal and coronal reformats are submitted and reviewed. Patient scan micheal in prone position. DLP: 431.[address] scans at [facility] use at least one of these dose optimization techniques: automated e xposure control; mA and/or kV adjustment per patient size (includes targeted exams where dose is matc hed to clinical indication); or iterative reconstruction. COMPARISON: Read in conjunction with the CT myelogram from earlier the same day. Patient is imaged in a prone position. There is better opacification of the subarachnoid space with p atient in prone position. There is still layering of contrast but this exam should be diagnostic. Increase in the lumbar lordosis. No fractures. Moderate atherosclerosis aorta. L1-L2: Mild annular disc bulging. There is mild encroachment upon the ventral thecal sac and subartic ular recesses but no high-grade stenosis. L2-L3: Diffuse annular disc bulging. There is increased soft tissue in the RIGHT foramen obliterating the fat consistent with disc protrusion. This disc protrusion is contacting the RIGHT L2 and L3 nerv e roots. No central canal stenosis. Mild facet arthritis and LEFT foraminal narrowing. Ligamentum fla vum hypertrophy. L3-L4: Mild annular disc bulging and osteophytic ridging. Mild facet arthritis. Mild foraminal narrow ing. L4-L5: Mild annular disc bulging with osteophytic ridging. Facet arthritis. No high-grade central bala nosis. Mild foraminal stenosis. L5-S1: Mild osteophytic ridging. Osteophyte encroachment upon the foramina. Mild foraminal stenosis. Small RIGHT foraminal disc protrusion is not excluded. Atherosclerosis abdominal aorta. CT/CT lumbar spine w con [id number] IMPRESSION: 1. Repeat myelogram imaging with patient in prone position. 2. There is increased soft tissue obliterating the fat in the RIGHT L2-3 kat en contacting the L2 and L3 nerve roots. This is most consistent with a moderat e-sized disc protrusion. 3. There is only mild narrowing of the central lumbar canal. No high-grade ashtyn tral stenosis. 4. Mild bilateral foraminal stenosis at L4-5 and L5-S1. Small RIGHT foraminal disc protrusion not excluded on the RIGHT at L5-S1. Notified Alba Stovall MD at 06/23/2023 2:34 PM.
--- NOTE | 2023-06-23 14:23 | PC.SOCIAL ---
Pg 2 IMM Explained to pt Pg 2 IMM. No questions voiced. Provided pt a copy. Initialed, dated, & timed a copy & placed in chart.
[2023-06-23] MEDS: dexamethasone 10 mg/mL INJ 6 MG IVP (15:33)
--- NOTE | 2023-06-23 20:51 | P.DS_ITS ---
Discharge Providers Date of Admission: 06/20/23 22:45 Date of Discharge: June 23, 2023 Attending Provider at Admission: Thor Kovacs MD Attending Provider at Discharge: Alba Stovall MD Primary Care Provider: Destin Chung MD Diagnoses at Discharge Discharge Diagnosis (1) Weakness of both lower extremities: Status: Inactive Reason for Visit Reason for Visit: Weakness Hospital Course Hospital Course Patient was admitted for weakness of bilateral lower extremities with trouble ambulation and urinary retention. Rutherford was placed. Neurology evaluated patient and believed his issue was mostly orthopedic related. There was a possibility of Garon Velez? versus CIDP however that was not the case. Orthopedic surgery was consulted. Dr. Calle evaluated patient and requested for an MRI however secondary to patient's pacemaker MRI could not be completed. CT myelogram was recommended. Eliquis was held for 48 hours and patient had a myelogram done Monday morning. Due to inadequate imaging he had to be taken down to radiology again for more imaging. Finally myelogram resulted with the following findings.: CT/CT lumbar spine w con [id number] IMPRESSION: 1. Repeat myelogram imaging with patient in prone position. 2. There is increased soft tissue obliterating the fat in the RIGHT L2-3 foramen contacting the L2 and L3 nerve roots. This is most consistent with a moderate-sized disc protrusion. 3. There is only mild narrowing of the central lumbar canal. No high-grade central stenosis. 4. Mild bilateral foraminal stenosis at L4-5 and L5-S1. Small RIGHT foraminal disc protrusion not excluded on the RIGHT at L5-S1. The above findings were discussed in detail with radiology Dr. Coles and spine surgeon Dr. Calle. Clinically patient improved symptomatically. He was given IV dexamethasone 6 mg every 24 hours during his hospital stay. It was decided to discharge the patient home to follow-up as an outpatient to schedule for surgery. Dr. Calle indicated there was was not an emergent situation to operate right away. There was no high-grade central stenosis noted. Above findings were discussed with the patient as well and with shared decision making patient decided to go home and to follow-up with Dr. Calle as an outpatient. Patient was asked to continue all his home medications including the Eliquis. When surgery is scheduled Eliquis will need to be held 48 hours prior. Patient in agreement. His appointment with Dr. Calle is June 26. Of note secondary to IV fluids and holding Lasix on admission patient did become slightly hypervolemic however after receiving 2 doses of IV Lasix he was back to his baseline on room air. Patient discharged home on room air. Physical Exam Urinary Catheter Management: Rutherford: Cath Placed During This Visit: yes, but has since been removed by the nurse Reason for Continuing Indwelling Catheter: Other Urinary Catheter Date of Insertion: 06/20/23 Urinary Catheter Time of Insertion: 19:35 Date Urinary Catheter Removed: 06/23/23 Time Urinary Catheter Discontinued: 16:15 Discharge Data Studies Completed and Pending Completed Studies During Hospitalization Category Date Time Status CT abdomen pelvis w con* [id number] Stat Cat Scan 06/20/23 20:[address] cervical spin wo con* [id number] Stat Cat Scan 06/20/23 22:[address] femur RT wo con* [id number] Stat Cat Scan 06/20/23 20:[address] lumbar spine w con [id number] Routine Cat Scan 06/23/23 11:[address] lumbar spine w con [id number] Stat Cat Scan 06/20/23 19:[address] lumbar spine w con [id number] Stat Cat Scan 06/23/23 14:[address] thoracic spin wo con* [id number] Stat Cat Scan 06/20/23 22:25 Completed CTA head neck [CT angio headneck* [id number]] Routine Cat Scan 06/21/23 10:12 Completed IR myelogram sp lumbar [id number] Stat Exams 06/23/23 09:00 Completed XR chest 1V portable [id number] Stat Exams 06/20/23 19:32 Completed XR chest 1V portable [id number] Stat Exams 06/22/23 19:56 [place] [id number] Stat Ultrasound 06/22/23 19:52 Completed Pending at discharge Category Date Time Status Blood Culture Stat Lab 06/20/23 19:12 Results Blood Culture Stat Lab 06/22/23 21:11 Results Tick Panel Stat Lab 06/20/23 15:25 Results Urine Culture Stat Lab 06/22/23 22:27 Results Radiology Impressions Abdomen/Pelvis CT 06/20/23 20:16 IMPRESSION: 1. No acute findings. 2. Large amount of stool in the rectum, correlate for fecal impaction. COMMENTS: Consistent with the [employer]'s Incidental Findings Committee white paper (J Am Simona Radiol 2018): Any incidental renal lesion less than 1 cm or classified as too small to characterize, or any incidental cystic renal lesion characterized as simple-appearing, is likely benign. No follow-up imaging is recommended for these lesions per consensus recommendations based on imaging criteria. Femur CT 06/20/23 20:16 IMPRESSION: 1. No acute fracture or dislocation. No aggressive osseous lesions. 2. Large amount of stool in the rectum, correlate for fecal impaction. Cervical Spine CT 06/20/23 22:25 IMPRESSION: 1. No acute fracture or traumatic malalignment. 2. Multilevel cervical spondylosis. Up to at least moderate spinal canal narrowing at C4-C5. Multilevel moderate to severe neural foraminal stenoses. Degenerative changes could be better evaluated with MRI, as clinically indicated. 3. Bilateral vertebral artery atherosclerosis with probable focal severe stenosis of the mid left vertebral artery. Thoracic Spine CT 06/20/23 22:25 IMPRESSION: 1. No acute fracture or traumatic malalignment in the thoracic spine. 2. Ascending aortic aneurysm measuring up to 4.7 cm. Head/Neck CTA 06/21/23 10:12 IMPRESSION: 1. No evidence intracranial hemorrhage or mass effect. Ventricular system and basilar cisterns are patent. Intracranial vascular calcification. 2. Less than 50% ICA stenosis bilaterally. Retropharyngeal course of both cervical ICAs. 3. RIGHT dominant vertebral artery. 4. No proximal flow-limiting intracranial stenosis. 5. Mild intracranial atheromatous disease. Chest X-Ray 06/22/23 19:56 IMPRESSION: Stable radiographic appearance of the chest. Myelogram,Lumbar Spine 06/23/23 09:00 IMPRESSION: 1. Uncomplicated lumbar myelogram. 2. Contrast is collecting in the increased lordosis of the lumbar spine. No significant stenosis or impingement on the central canal of the lumbar spine. 3. CT myelogram to follow. Lumbar Spine CT 06/23/23 14:09 IMPRESSION: 1. Repeat myelogram imaging with patient in prone position. 2. There is increased soft tissue obliterating the fat in the RIGHT L2-3 foramen contacting the L2 and L3 nerve roots. This is most consistent with a moderate-sized disc protrusion. 3. There is only mild narrowing of the central lumbar canal. No high-grade central stenosis. 4. Mild bilateral foraminal stenosis at L4-5 and L5-S1. Small RIGHT foraminal disc protrusion not excluded on the RIGHT at L5-S1. Notified Alba Stovall MD at 06/23/2023 2:34 PM. Laboratory Results WBC 5.74 10^3/uL (3.29-11.43) 06/23/23 03:38 RBC 4.11 10^6/uL (3.85-5.65) 06/23/23 03:38 Hgb 12.90 g/dL (11.27-16.99) 06/23/23 03:38 Hct 38.7 % (37-53) 06/23/23 03:38 MCV 94.2 fl (82-101) 06/23/23 03:38 MCH 31.4 pg (27-33) 06/23/23 03:38 MCHC 33.3 g/dL (30-55) 06/23/23 03:38 RDW 13.7 % (12.1-15.1) 06/23/23 03:38 Plt Count 146 10^3/cmm (157-399) L 06/23/23 03:38 MPV 9.4 fL (7.4-10.4) 06/23/23 03:38 Neut % (Auto) 71.3 % 06/23/23 03:38 Lymph % (Auto) 20.4 % 06/23/23 03:38 [place] % (Auto) 7.7 % 06/23/23 03:38 Eos % (Auto) 0.0 % 06/23/23 03:38 Baso % (Auto) 0.3 % 06/23/23 03:38 Neut # (Auto) 4.09 10^3/uL (1.8-7.7) 06/23/23 03:38 Lymph # (Auto) 1.2 10^3/uL (0.8-4.8) 06/23/23 03:38 [place] # (Auto) 0.4 10^3/uL (0.2-0.9) 06/23/23 03:38 Eos # (Auto) 0.0 10^3/uL (0.0-0.8) 06/23/23 03:38 Baso # (Auto) 0.0 10^3/uL (0.0-0.1) 06/23/23 03:38 Nucleated RBC % (auto) 0 % 06/23/23 03:38 Nucleated RBCs # 0.0 /100WBC 06/23/23 03:38 ESR 2 mm/hr (0-10) 06/20/23 20:43 APTT 39.9 SECONDS (23.9-36.7) H 06/21/23 04:01 D-Dimer 1.17 ug/mLFEU (0-0.59) H 06/22/23 21:11 Specimen Type Arterial 06/22/23 20:05 Sample Site Brachial, right 06/22/23 20:05 ABG pH 7.48 (7.35-7.45) H 06/22/23 20:05 ABG pCO2 27.9 mmHg (35-45) L 06/22/23 20:05 ABG pO2 74.2 mmHg (80.0-100.0) L 06/22/23 20:05 ABG HCO3 20.9 mmol/L (22-26) L 06/22/23 20:05 ABG O2 Saturation 96.5 06/22/23 20:05 ABG Base Excess -1.3 mmol/L (-2.0-2.0) 06/22/23 20:05 Tony Test Pos 06/22/23 20:05 A-a O2 Gradient 5.0 mmHg (5-10) 06/22/23 20:05 Hematocrit 41.2 % (42-52) L 06/22/23 20:05 Hgb O2 Saturation 94.7 % (95-100) L 06/22/23 20:05 Carboxyhemoglobin 1.1 %THgb (0.4-20.1) 06/22/23 20:05 Methemoglobin 0.8 % (0.4-1.5) 06/22/23 20:05 Total Hemoglobin 13.4 g/dL (14-18) L 06/22/23 20:05 Sodium 134.0 mmol/L (131-143) 06/22/23 20:05 Potassium 3.6 mmol/L (3.5-5.0) 06/22/23 20:05 Glucose 201.0 mg/dL (70-115) H 06/22/23 20:05 Ionized Calcium 1.2 mmol/L (1.1-1.4) 06/22/23 20:05 O2 Delivery Device Nc 06/22/23 20:05 O2 Liters/Min 5.0 % 05/16/24 20:05 Escrow Closer ID [email or web address] 06/22/23 20:05 Sodium 138 mmol/L (136-145) 06/23/23 03:38 Potassium 4.2 mmol/L (3.5-5.1) 06/23/23 03:38 Chloride 102 mmol/L (98-107) 06/23/23 03:38 Carbon Dioxide 25 mmol/L (22-29) 06/23/23 03:38 Anion Gap 15.2 (5-19) 06/23/23 03:38 BUN 21 mg/dL (8-23) 06/23/23 03:38 Creatinine 1.0 mg/dL (0.7-1.2) 06/23/23 03:38 GFR Calculation Not Reportable 06/23/23 03:38 Glucose 151 mg/dL (65-115) H 06/23/23 03:38 POC Glucose 139 mg/dL (70-110) H 06/23/23 06:32 Estimat Average Glucose 140 06/21/23 04:01 Hemoglobin A1c 6.5 % (4.0-6.0) H 06/21/23 04:01 Calculated Osmolality 292 mOsm/kg (285-295) 06/23/23 03:38 Lactic Acid 1.7 mmol/L (0.5-2.2) 06/22/23 21:11 Lactic Acid (Sepsis) 2.5 mmol/L (0.5-2.2) H 06/20/23 20:43 Calcium 8.9 mg/dL (8.5-10.5) 06/23/23 03:38 Phosphorus 3.9 mg/dL (2.5-4.5) 06/21/23 04:01 Magnesium 2.0 mg/dL (1.7-2.3) 06/23/23 03:38 Total Bilirubin 0.3 mg/dL (0.15-1.2) 06/22/23 21:11 AST 100 U/L (0-40) H 06/22/23 21:11 ALT 87 U/L (0-41) H 06/22/23 21:11 Alkaline Phosphatase 61 U/L (40-130) 06/22/23 21:11 Troponin T Baseline 61 ng/L (0-15) H 06/22/23 21:11 Troponin T 120 Minute 61.02 ng/L (0-15) H 06/22/23 23:17 Delta Troponin T 0.02 ABS# (0-10) 06/22/23 23:17 Troponin T Hi Sens 6Hr 45.38 ng/L (0-15) H 06/23/23 03:38 Troponin T Hi Sens 6Hr Delta -15.62 ng/L (0-12) L 06/23/23 03:38 C-Reactive Protein 28.4 mg/L (0.0-4.9) H 06/20/23 20:43 NT-Pro-B Natriuret Pep 2544 pg/mL (0-450) H 06/22/23 21:11 Total Protein 6.1 g/dL (6.6-8.7) L 06/22/23 21:11 Albumin 3.7 g/dL (3.5-5.2) 06/22/23 21:11 Globulin 2.4 g/dL (1.3-4.6) 06/22/23 21:11 Procalcitonin 0.31 ng/mL (0-0.5) 06/22/23 21:11 TSH 1.55 uIU/mL (0.27-4.20) 06/21/23 04:01 Urine Color Yellow (Yellow) 06/20/23 19:56 Urine Appearance Clear (CLEAR) 06/20/23 19:56 Urine pH 5 (5-7) 06/20/23 19:56 Ur Specific [place] 1.015 (1.005-1.030) 06/20/23 19:56 Urine Protein Neg (Negative) 06/20/23 19:56 Urine Glucose (UA) 4+ (Normal) H 06/20/23 19:56 Urine Ketones Negative (Negative) 06/20/23 19:56 Urine Blood 2+ (Negative) H 06/20/23 19:56 Urine Nitrate Negative (Negative) 06/20/23 19:56 Urine Bilirubin Neg (Negative) 06/20/23 19:56 Urine Urobilinogen Norm mg/dL (Negative) 06/20/23 19:56 Ur Leukocyte Esterase Negative (Negative) 06/20/23 19:56 Urine RBC 0-4 /hpf (0-2) H 06/20/23 19:56 Urine WBC 0-4 /hpf (0-5) H 06/20/23 19:56 Ur Squamous Epith Cells 0-4 /hpf (0-5) H 06/20/23 19:56 Amorphous Sediment Not Reportable 06/20/23 19:56 Urine Bacteria None /hpf (NONE) 06/20/23 19:56 Urine Mucus 1+ /hpf 06/20/23 19:56 Digoxin 1.1 ng/mL (0.6-1.2) 06/20/23 20:43 Adenovirus (PCR) Not detected (NOT DETECT) 06/22/23 20:08 Lyme Ab (Western Blot) <0.90 index 06/20/23 15:25 C. pneumoniae DNA (PCR) Not detected (NOT DETECT) 06/22/23 20:08 Coronavirus 229E (PCR) Not detected (NOT DETECT) 06/22/23 20:08 Human Metapneumovir PCR Not detected (NOT DETECT) 06/22/23 20:08 Influenza A (H1) PCR Not detected (NOT DETECT) 06/22/23 20:08 Influ A (H1/09) PCR Not detected (NOT DETECT) 06/22/23 20:08 Influenza A (H3) PCR Not detected (NOT DETECT) 06/22/23 20:08 Influenza Type A (PCR) Not detected (NOT DETECT) 06/22/23 20:08 Influenza Type B (PCR) Not detected (NOT DETECT) 06/22/23 20:08 M. pneumoniae (PCR) Not detected (NOT DETECT) 06/22/23 20:08 Parainfluenza 1 (PCR) Not detected (NOT DETECT) 06/22/23 20:08 Parainfluenza 2 (PCR) Not detected (NOT DETECT) 06/22/23 20:08 Parainfluenza 3 (PCR) Not detected (NOT DETECT) 06/22/23 20:08 Parainfluenza 4 (PCR) Not detected (NOT DETECT) 06/22/23 20:08 RSV Type A (PCR) Not detected (NOT DETECT) 06/22/23 20:08 RSV Type B (PCR) Not detected (NOT DETECT) 06/22/23 20:08 Entero/Rhino (PCR) Not detected (NOT DETECT) 06/22/23 20:08 SARS-CoV-2 (PCR) Not detected (NOT DETECT) 06/22/23 20:08 Vitals Last Vital Signs Temp 98.4 F 06/23/23 07:39 Pulse 108 H 06/23/23 08:44 Resp 16 06/23/23 07:39 BP 152/87 06/23/23 07:39 Pulse Ox 95 06/23/23 07:39 O2 Del Method Nasal Cannula 06/23/23 07:39 O2 Flow Rate 5 06/23/23 07:39 Discharge Plan Discharge Patient Disposition: Home Condition: Stable Prescriptions: Continued Tart Kumar Extract 1,000 mg capsule 1,000 mg PO DAILY lutein 40 mg capsule 40 mg PO BID glucosamine HCl 1,500 mg tablet 1,500 mg PO DAILY ferrous gluconate 324 mg (37.5 mg iron) tablet 324 mg PO DAILY colchicine 0.6 mg tablet 0.6 mg PO DAILY Qty: 90 1RF diclofenac sodium 1 % gel 2 g topical QID Qty: 100 2RF Rx Instructions: apply to affected area as needed febuxostat 40 mg tablet 80 mg PO DAILY Qty: 180 1RF Rx Instructions: 340B please, insurance denied sulfasalazine 500 mg tablet See Rx Instructions .ROUTE .COMPLEX Qty: 360 1RF Dose Instruction: TAKE TWO TABLETS BY MOUTH TWO TIMES A DAY Rx Instructions: TAKE TWO TABLETS BY MOUTH TWO TIMES A DAY clopidogrel [Plavix] 75 mg tablet 75 mg PO DAILY Qty: 90 3RF Hold Instructions: Resume on 11/19/21. digoxin 125 mcg (0.125 mg) tablet 125 mcg PO DAILY Qty: 90 3RF Eliquis 5 mg tablet 5 mg PO BID Qty: 180 3RF Hold Instructions: Resume on 11/18/21. May start taking this tomorrow evening furosemide 40 mg tablet See Rx Instructions .ROUTE .COMPLEX Qty: 135 3RF Dose Instruction: TAKE 1 & 1/2 TABLETS BY MOUTH DAILY Rx Instructions: TAKE 1 & 1/2 TABLETS BY MOUTH DAILY isosorbide mononitrate 60 mg tablet extended release 24 hr 30 mg PO DAILY Qty: 90 3RF Rx Instructions: Unable to tolerate 120mg dose Mag 64 64 mg tablet,delayed release (DR/EC) 64 mg PO BID Qty: 180 3RF potassium chloride 10 mEq tablet extended release 10 meq PO DAILY Qty: 90 3RF Entresto 49-51 mg tablet 0.5 tab PO BID Qty: 90 3RF Rx Instructions: *Reduced dose: Adverse reaction to 97/103mg (lightheadedness) spironolactone 25 mg tablet 25 mg PO DAILY Qty: 90 3RF prednisone 20 mg tablet See Rx Instructions PO .COMPLEX PRN (Reason: joint pain flare) Qty: 30 1RF Rx Instructions: take 1 tab daily for 5-7 days as needed for gout flare PO PRN; ascorbic acid (vitamin C) [Vitamin C] 500 mg Tablet 500 mg PO DAILY omega-3 fatty acids 1,000 mg Capsule 1,000 mg PO BID hydrocodone-acetaminophen 5-325 mg tablet 1 tab PO BID PRN (Reason: Pain) vitamin B complex Tablet 1 tab PO DAILY rosuvastatin 20 mg tablet 20 mg PO BEDTIME multivit,Ca,ikas-EP-yownqg-lut [phone] pl-tev-fsu-mcg Tablet 1 tab PO DAILY Discharge Orders: Discharge Order (Routine); Ordered 06/23/23 Ordered By: Jakub Barajas Referrals: Luis Calle DO [Physician] - 06/27/23 2:00 pm Destin Chung MD [Primary Care Provider] - ([facility] the need for a follow-up appointment to be scheduled. If you have not heard from them within the next 2 business days, please call them directly. ) Patient Instructions: Urinary Retention in Men (GEN), Lumbar Spinal Stenosis (GEN), Weakness (GEN), Opioid Safety Discharge Attestations Time Spent in Discharge Care*: greater than 30 min Status at Discharge: Cognitive status at discharge: cognitively intact , Behavioral status at discharge: cooperative , Quality Metrics Clinical Quality Measures [ No reported AMI, CVA or VTE this stay] Coding Level of Care Code 52274 Total time (in minutes) for Discharge: 35 Diagnoses Weakness of both lower extremities R29.898
[2023-06-24 21:04] LABS: E. Chaffeensis AB IGG <1:64; E. Chaffeensis AB IGM <1:20
[2023-06-27 16:53] LABS: RMSF IGG NOT DETECTED; RMSF IGM NOT DETECTED
== END 2023-06-23 17:12 | disposition home or self-care (01) ==
LOC: ER 22:43 → MEDSURG 06-21 00:10
PROVIDERS: Admitting Provider Family Medicine; Emergency Provider Family Medicine; PCP Family Medicine; Visit Provider Internal Medicine
DX: R29.898 Other symptoms and signs involving the musculoskeletal system (principal); R26.2 Difficulty in walking, not elsewhere classified; R33.9 Retention of urine, unspecified; M48.07 Spinal stenosis, lumbosacral region; M51.36 Other intervertebral disc degeneration, lumbar region; M05.9 Rheumatoid arthritis with rheumatoid factor, unspecified; Z95.1 Presence of aortocoronary bypass graft; Z95.0 Presence of cardiac pacemaker; E78.2 Mixed hyperlipidemia; I10 Essential (primary) hypertension; I42.9 Cardiomyopathy, unspecified; E78.5 Hyperlipidemia, unspecified
CPT/HCPCS: 36415; 36416; 36600; 51702; 62304; 70496; 70498; 71045; 72125; 72128; 72132; 73700; 74177; 80048; 80051; 80053; 80162; 81001; 82330; 82805; 82962; 83036; 83605; 83735; 83880; 84100; 84145; 84443; 84484; 85025; 85378; 85651; 85730; 86140; 86618; 86666; 86757; 87040; 87086; 87486; 87581; 87633; 93005; 93970; 94664; 96365; 96372; 96375; 97110; 97161; 97165; 97530; 97535; 99285; C9113; G0378; J0696; J1100; J1815; J1940; J3490; J7030; Q9966; Q9967

== ENCOUNTER → 2023-06-27 14:07 | Outpatient (BNVA) | payer MEDICARE, SELFPAY | PROVIDERS: PCP Family Medicine; Visit Provider Orthopaedic Surgery | DX: M54.9 Dorsalgia, unspecified (principal); M48.062 Spinal stenosis, lumbar region with neurogenic claudication | CPT/HCPCS: 72110; 99214 ==

== ENCOUNTER → 2023-07-10 11:32 | Outpatient (BNVA) | payer MEDICARE, SELFPAY | PROVIDERS: PCP Family Medicine; Visit Provider Podiatrist Foot & Ankle Surgery | DX: L60.3 Nail dystrophy (principal); I73.9 Peripheral vascular disease, unspecified | CPT/HCPCS: 11721; 99203 ==

== ENCOUNTER 2023-07-28 15:15 | Outpatient (CLI) | payer MEDICARE, SELFPAY ==
--- NOTE | 2023-07-28 15:28 | USCV_ITS ---
Thong Salgado Age: 83 Gender: M : 1940 Exam Date: 07/28/2023 15:34 Ordering Phys: Destin Chung MD Technologist: Exam Location: [facility] [place] Indication: hx of ao pros BP: 117 / 70 HR: 101 Rhythm: Other Technical Quality: Suboptimal MEASUREMENTS (Male / Female) Normal Values 2D ECHO LV Diastolic Diameter PLAX 5.3 cm 4.2 - 5.9 / 3.9 - 5.3 cm LV Systolic Diameter PLAX 3.9 cm IVS Diastolic Thickness 1.3 cm 0.6 - 1.0 / 0.6 - 0.9 cm IVS Systolic Thickness 1.8 cm LVPW Diastolic Thickness 1.2 cm 0.6 - 1.0 / 0.6 - 0.9 cm LVPW Systolic Thickness 2.1 cm LVOT Diameter 2.0 cm LV Ejection Fraction 2D Teich 51.0 % LV Ejection Fraction MOD 2C 62.3 % LV Ejection Fraction 2C AL 64.6 % LA Diameter 4.9 cm RA Systolic Volume 4C AL 77.1 ml RA Systolic Volume 4C MOD 76.4 ml Aorta at Sinotubular Diameter 4.2 cm IVC Diameter 1.8 cm M-MODE LA Ao Ratio MM 1.2 AV Cusp Separation MM 1.9 cm DOPPLER AV Peak Velocity 187.7 cm/s LVOT Peak Velocity 87.0 cm/s AV Area Cont Eq vti 2.0 cm squared AV Area Cont Eq pk 1.5 cm squared MV Peak Velocity 81.0 cm/s TV Peak Velocity 110.5 cm/s TR Peak Velocity 114.0 cm/s TR Peak Gradient 5.2 mmHg TV Peak E Velocity 88.0 cm/s PV Peak Velocity 51.5 cm/s FINDINGS Left Ventricle The ventricles not well-seen. It appears to be mildly enlarged. There is paradoxical motion of the septum consistent with either a paced rhythm or a bundle branch block pattern. There is also an apical wall motion defect which is noted only in the apical view. The overall ejection fraction is about 50%. There are no other obvious wall motion abnormalities. Diastolic function cannot be determined Right Ventricle Normal right ventricular size and systolic function. Right Atrium The right atrium is normal in size. Left Atrium Mildly increased left atrial size. Mitral Valve Structurally normal mitral valve. Moderate mitral valve regurgitation. Aortic Valve The aortic valve was not well-seen. There is no obvious aortic stenosis or regurgitation. The valve may be a bioprosthetic valve. Tricuspid Valve Structurally normal tricuspid valve. Mild tricuspid valve regurgitation. Pulmonic Valve Pulmonic valve not well visualized. Pericardium Normal pericardium without effusion. Aorta Proximal aorta just above the aortic valve measures 3.18 cm. Distal to this in the ascending aorta the aortic diameter is 4.2 cm. IVC Inferior vena cava not visualized. CONCLUSIONS The ventricles not well-seen. It appears to be mildly enlarged. There is paradoxical motion of the septum consistent with either a paced rhythm or a bundle branch block pattern. There is also an apical wall motion defect which is noted only in the apical view. The overall ejection fraction is about 50%. There are no other obvious wall motion abnormalities. Diastolic function cannot be determined. Mildly increased left atrial size. Structurally normal mitral valve. Moderate mitral valve regurgitation. Proximal aorta just above the aortic valve measures 3.18 cm. Distal to this in the ascending aorta the aortic diameter is 4.2 cm. The aortic valve was not well-seen. There is no obvious aortic stenosis or regurgitation. The valve may be a bioprosthetic valve. Previous study was done 1 year ago. At that time the ascending aorta was about the same size. Otherwise no obvious changes. Dr. Gabe Martin MD (Electronically Signed) Final Date: 29 July 2023 11:57 S
== END 2023-07-28 15:21 | disposition home or self-care (01) ==
PROVIDERS: PCP Family Medicine; Visit Provider Family Medicine
DX: I35.0 Nonrheumatic aortic (valve) stenosis (principal); R94.39 Abnormal result of other cardiovascular function study
CPT/HCPCS: 93306

== ENCOUNTER → 2023-08-02 10:40 | Outpatient (BNVA) | payer MEDICARE, SELFPAY | PROVIDERS: PCP Family Medicine; Visit Provider Internal Medicine Cardiovascular Disease | DX: Z45.010 Encounter for checking and testing of cardiac pacemaker pulse generator [battery] (principal) | CPT/HCPCS: 93296 ==

== ENCOUNTER 2023-08-18 07:20 | Inpatient (IN) | payer MEDICARE, SELFPAY ==
[2023-08-18] VITALS (10 sets, daily range): BP systolic 108–125; BP diastolic 48–87; PULSE 66–95; RESP 18–34; TEMP 36.5–36.9; O2SAT 92–98
--- NOTE | 2023-08-18 07:25 | ECG_ITS ---
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 Measurements Intervals [place] Rate: 81 P: 0 MA: 0 QRS: -79 QRSD: 209 T: 0 QT: 453 QTc: 526 Interpretive Statements ELECTRONIC VENTRICULAR PACEMAKER ABNORMAL RHYTHM ECG Compared to ECG 06/23/2023 01:00:21 No significant changes Electronically Signed On 08-18-2023 8:50:11 CDT by Fabiola Paige M.D. [id number]
--- NOTE | 2023-08-18 07:33 | ED_ITS ---
HPI - Weakness 2 General: Chief complaint: Weakness Stated complaint: fall, weakness Time Seen by Provider: 08/18/23 07:22 Source: patient Mode of arrival: ambulatory History of Present Illness: 83-year-old male presents emergency room complaining of falling feeling weak. This have not been going on for some time. He states whenever he tries to get up he gets lightheaded dizzy and cannot stay upright. He is usually on oxygen at home but now is requiring 2-1/2 L to maintain sats in the low 90s. He denies chest pain or abdominal pain no nausea vomiting or diarrhea. Patient may has a pacemaker he was previously had a TAVR as well as coronary bypass. He has a history of cardiomyopathy. He is on anticoagulation. 3 weeks ago patient had an echocardiogram that showed an EF of around 50% had difficulty determining any diastolic dysfunction. No significant valvular disease was noted. There is an echocardiogram from 2019 that showed a decreased ejection fraction at around 35%. He has a pacemaker in place he also has a Holter monitor currently on the Dr. Chung had ordered. MD Complaint: generalized weakness Duration: constant Relieving factors: other (Lying down) Exacerbating factors: other (Standing) Associated symptoms: Denies chest pain, chills, confusion, melena, decreased appetite, diaphoresis, dysuria, easy bruising, fever(s), headache(s), myalgias, nausea, rash, short of breath, syncope or vomiting Review of Systems 2 Const: Reports: fatigue and malaise; Denies: fever(s), chills or diaphoresis Card: Reports: pre-syncope; Denies: chest pain or syncope Resp: Denies: dyspnea GI: Denies: nausea, vomiting or melena : Denies: dysuria Musc: Denies: neck pain or back pain Skin/Breast: Denies: rash Neuro: Denies: headache(s) or confusion David/Lymph: Denies: easy bruising PFSH ED 2 PFSH: Medical History (Updated 08/18/23 @ 12:53 by Efren Nance DO) Atrial fibrillation Lumbar stenosis with neurogenic claudication Degenerative disc disease Vertebral artery stenosis Aortic aneurysm Weakness Weakness of both lower extremities Lactic acidosis Fever of unknown origin Acute urinary retention Leg weakness History of nonmelanoma skin cancer Gout COVID-19 vaccine administered Macular degeneration Seropositive rheumatoid arthritis of multiple sites Immunization counseling High risk medication use Osteoarthritis of knees, bilateral Inflammatory arthritis Gout, arthritis Edema, peripheral Coronary arteriosclerosis after coronary artery bypass grafting CABG x2 (OLSON to LAD and SVG to OM, 05/08/2008) Cardiomyopathy LVEF has decreased from 45% to 35% by echocardiogram. Cataract Cardiac arrhythmia Pacemaker Dual-chamber Mixed hyperlipidemia last lipid panel 2019: Cholesterol 93, triglycerides 78, LDL 55. Thoracic aneurysm without mention of rupture Ascending aortic aneurysm 4.4cm by CT 07/2017 Essential hypertension Surgical History (Updated 08/18/23 @ 12:53 by Efren Nance DO) History of surgical removal of ganglion cyst Hx of cataract surgery S/p TAVR (transcatheter aortic valve replacement), bioprosthetic Hx of CABG Hx of appendectomy H/O foot surgery Family History Mother Dementia Other CAD (coronary artery disease) Diabetes Hyperlipidemia Hypertension Stroke Denies family history of Clotting disorder Psychiatric illness Chronic kidney disease (CKD) Suicide Anesthesia complication Bleeding disorder Family history of premature coronary artery disease Lung disease Cancer Social History Smoking and tobacco/nicotine status: never used tobacco/nicotine Alcohol intake: never Substance/Drug Use: never Household members: significant other Housing: House Physical Exam 2 Const: COMMON NORMALS: no acute distress GENERAL APPEARANCE: cooperative and comfortable ORIENTATION/CONSCIOUSNESS: Yes awake, Yes oriented to person, Yes oriented to place and Yes oriented to time HENMT: COMMON NORMALS: normocephalic, atraumatic and hearing grossly normal bilaterally HEAD & SCALP: normocephalic and atraumatic Resp: COMMON NORMALS: normal respiratory effort, No retractions, No use of accessory muscles and clear to auscultation bilaterally AUSCULTATION: clear to auscultation bilaterally Cardio: COMMON NORMALS: regular rate, regular rhythm and No murmurs present (Cardio) RATE: regular rate RHYTHM: regular rhythm GI: COMMON NORMALS: Soft to palpation and No hepatosplenomegaly present A USCULTATION: Yes normoactive bowel sounds PALPATION: Yes Soft to palpation, No Tenderness to palpation present (GI), No Guarding due to palpation present (GI) and Yes No hepatosplenomegaly present Extremity: COMMON NORMALS: normal to inspection, capillary refill normal, no clubbing, cyanosis or edema, no calf tenderness and no pedal edema Neuro: SENSORIUM/ORIENTATION: Yes oriented to person, Yes oriented to place and Yes oriented to time Skin: COMMON NORMALS: no rashes or lesions noted GENERAL SKIN EXAM: no rashes or lesions noted Course 2 Vital Signs: Vital signs: Vital Signs Temperature 98.4 F 08/18/23 07:21 Pulse Rate 95 08/18/23 12:30 Respiratory Rate 19 H 08/18/23 12:30 Blood Pressure 119/61 08/18/23 12:30 Pulse Oximetry 96 08/18/23 12:30 Oxygen Delivery Me thod Nasal Cannula 08/18/23 12:30 Oxygen Flow Rate 2 08/18/23 10:15 MDM - Weakness Medical Decision Making Patient been increasingly weak and unable to manage himself. Pacer interrogation shows it is not sensing properly with atrial tachycardia atrial flutter. 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 He is not requiring oxygen and normally does not his BNP is slightly elevated BUN and creatinine are elevated anion gap is slightly elevated as well. Discussed Dr. Infante will admit. Medical Records I reviewed the patient's medical records. Lab Data I reviewed the patient's lab results. 08/18/23 07:42 08/18/23 07:42 Radiology Impressions Chest X-Ray 08/18/23 07:34 IMPRESSION: 1. No acute findings. Laboratory Results WBC 5.23 10^3/uL (3.29-11.43) 08/18/23 07:42 RBC 4.30 10^6/uL (3.85-5.65) 08/18/23 07:42 Hgb 13.40 g/dL (11.27-16.99) 08/18/23 07:42 Hct 38.6 % (37-53) 08/18/23 07:42 MCV 89.8 fl (82-101) 08/18/23 07:42 MCH 31.2 pg (27-33) 08/18/23 07:42 MCHC 34.7 g/dL (30-55) 08/18/23 07:42 RDW 14.2 % (12.1-15.1) 08/18/23 07:42 Plt Count 91 10^3/cmm (157-399) L 08/18/23 07:42 MPV 11.4 fL (7.4-10.4) H 08/18/23 07:42 Neut % (Auto) 83.2 % 08/18/23 07:42 Lymph % (Auto) 12.2 % 08/18/23 07:42 Ector % (Auto) 3.6 % 08/18/23 07:42 Eos % (Auto) 0.0 % 08/18/23 07:42 Baso % (Auto) 0.4 % 08/18/23 07:42 Neut # (Auto) 4.35 10^3/uL (1.8-7.7) 08/18/23 07:42 Lymph # (Auto) 0.6 10^3/uL (0.8-4.8) L 08/18/23 07:42 Ector # (Auto) 0.2 10^3/uL (0.2-0.9) 08/18/23 07:42 Eos # (Auto) 0.0 10^3/uL (0.0-0.8) 08/18/23 07:42 Baso # (Auto) 0.0 10^3/uL (0.0-0.1) 08/18/23 07:42 Nucleated RBC % (auto) 0 % 08/18/23 07:42 Nucleated RBCs # 0.0 /100WBC 08/18/23 07:42 Specimen Type Arterial 08/18/23 07:49 Sample Site Brachial, left 08/18/23 07:49 ABG pH 7.50 (7.35-7.45) H 08/18/23 07:49 ABG pCO2 30.5 mmHg (35-45) L 08/18/23 07:49 ABG pO2 75.2 mmHg (80.0-100.0) L 08/18/23 07:49 ABG PO2/FiO2 Ratio 235 08/18/23 07:49 ABG HCO3 23.5 mmol/L (22-26) 08/18/23 07:49 ABG O2 Saturation 96.0 08/18/23 07:49 ABG Base Excess 1.0 mmol/L (-2.0-2.0) 08/18/23 07:49 Tony Test Pos 08/18/23 07:49 A-a O2 Gradient 14.9 mmHg (5-10) H 08/18/23 07:49 Hematocrit 41.7 % (42-52) L 08/18/23 07:49 Hgb O2 Saturation 95.1 % (95-100) 08/18/23 07:49 Carboxyhemoglobin 0.8 %THgb (0.4-20.1) 08/18/23 07:49 Methemoglobin 0.1 % (0.4-1.5) L 08/18/23 07:49 Total Hemoglobin 13.6 g/dL (14-18) L 08/18/23 07:49 Sodium 135.0 mmol/L (131-143) 08/18/23 07:49 Potassium 3.2 mmol/L (3.5-5.0) L 08/18/23 07:49 Glucose 190.0 mg/dL (70-115) H 08/18/23 07:49 Ionized Calcium 1.2 mmol/L (1.1-1.4) 08/18/23 07:49 O2 Delivery Device Nc 08/18/23 07:49 O2 Liters/Min 3.0 % 08/18/23 07:49 FiO2 32.0 % 08/18/23 07:49 Supplier Quality Engineer ID Cak 08/18/23 07:49 Sodium 133 mmol/L (136-145) L 08/18/23 07:42 Potassium 3.4 mmol/L (3.5-5.1) L 08/18/23 07:42 Chloride 95 mmol/L (98-107) L 08/18/23 07:42 Carbon Dioxide 20 mmol/L (22-29) L 08/18/23 07:42 Anion Gap 21.4 (5-19) H 08/18/23 07:42 BUN 51 mg/dL (8-23) H 08/18/23 07:42 Creatinine 1.5 mg/dL (0.7-1.2) H 08/18/23 07:42 GFR Calculation Not Reportable 08/18/23 07:42 Glucose 188 mg/dL (65-115) H 08/18/23 07:42 Estimat Average Glucose 131 08/18/23 07:42 Hemoglobin A1c 6.2 % (4.0-6.0) H 08/18/23 07:42 Calculated Osmolality 295 mOsm/kg (285-295) 08/18/23 07:42 Lactic Acid 2.4 mmol/L (0.5-2.2) H 08/18/23 07:42 Lactic Acid (Sepsis) 2.8 mmol/L (0.5-2.2) H 08/18/23 09:52 Calcium 8.9 mg/dL (8.5-10.5) 08/18/23 07:42 Magnesium 2.8 mg/dL (1.7-2.3) H 08/18/23 09:52 Total Bilirubin 0.5 mg/dL (0.15-1.2) 08/18/23 07:42 AST 126 U/L (0-40) H 08/18/23 07:42 ALT 73 U/L (0-41) H 08/18/23 07:42 Alkaline Phosphatase 62 U/L (40-130) 08/18/23 07:42 Creatine Kinase 179 U/L (39-308) 08/18/23 07:42 Troponin T Baseline 57 ng/L (0-15) H 08/18/23 07:42 Troponin T 120 Minute 58.21 ng/L (0-15) H 08/18/23 09:52 Delta Troponin T 1.21 ABS# (0-10) 08/18/23 09:52 NT-Pro-B Natriuret Pep 3647 pg/mL (0-450) H 08/18/23 07:42 Total Protein 7.0 g/dL (6.6-8.7) 08/18/23 07:42 Albumin 3.9 g/dL (3.5-5.2) 08/18/23 07:42 Globulin 3.1 g/dL (1.3-4.6) 08/18/23 07:42 Vitamin B12 775 pg/mL (232-1245) 08/18/23 07:42 Urine Color Yellow (Yellow) 08/18/23 09:02 Urine Appearance Cloudy (CLEAR) A 08/18/23 09:02 Urine pH 5 (5-7) 08/18/23 09:02 Ur Specific [place] 1.015 (1.005-1.030) 08/18/23 09:02 Urine Protein 1+ (Negative) H 08/18/23 09:02 Urine Glucose (UA) 4+ (Normal) H 08/18/23 09:02 Urine Ketones Negative (Negative) 08/18/23 09:02 Urine Blood 3+ (Negative) H 08/18/23 09:02 Urine Nitrate Negative (Negative) 08/18/23 09:02 Urine Bilirubin Neg (Negative) 08/18/23 09:02 Urine Urobilinogen Neg mg/dL (Negative) 08/18/23 09:02 Ur Leukocyte Esterase Negative (Negative) 08/18/23 09:02 Urine RBC 40-50 /hpf (0-2) H 08/18/23 09:02 Urine WBC 0-4 /hpf (0-5) H 08/18/23 09:02 Ur Squamous Epith Cells 0-4 /hpf (0-5) H 08/18/23 09:02 Amorphous Sediment 2+ /hpf 08/18/23 09:02 Urine Bacteria 2+ /hpf (NONE) H 08/18/23 09:02 Coarse Granular Casts 10-15 /lpf H 08/18/23 09:02 Urine Mucus Trace /hpf 08/18/23 09:02 Digoxin 1.1 ng/mL (0.6-1.2) 08/18/23 07:42 Adenovirus (PCR) Not detected (NOT DETECT) 08/18/23 09:35 C. pneumoniae DNA (PCR) Not detected (NOT DETECT) 08/18/23 09:35 Coronavirus 229E (PCR) Not detected (NOT DETECT) 08/18/23 09:35 Human Metapneumovir PCR Not detected (NOT DETECT) 08/18/23 09:35 Influenza A (H1) PCR Not detected (NOT DETECT) 08/18/23 09:35 Influ A (H1/09) PCR Not detected (NOT DETECT) 08/18/23 09:35 Influenza A (H3) PCR Not detected (NOT DETECT) 08/18/23 09:35 Influenza Type A (PCR) Not detected (NOT DETECT) 08/18/23 09:35 Influenza Type B (PCR) Not detected (NOT DETECT) 08/18/23 09:35 M. pneumoniae (PCR) Not detected (NOT DETECT) 08/18/23 09:35 Parainfluenza 1 (PCR) Not detected (NOT DETECT) 08/18/23 09:35 Parainfluenza 2 (PCR) Not detected (NOT DETECT) 08/18/23 09:35 Parainfluenza 3 (PCR) Not detected (NOT DETECT) 08/18/23 09:35 Parainfluenza 4 (PCR) Not detected (NOT DETECT) 08/18/23 09:35 RSV Type A (PCR) Not detected (NOT DETECT) 08/18/23 09:35 RSV Type B (PCR) Not detected (NOT DETECT) 08/18/23 09:35 Entero/Rhino (PCR) Not detected (NOT DETECT) 08/18/23 09:35 SARS-CoV-2 (PCR) Not detected (NOT DETECT) 08/18/23 09:35 All radiology interpretation(s) finalized by discharge Discharge Plan Discharge Patient Disposition: Placed in Observation Admit Provider: Tom Nj Clinical Impression: Cardiomyopathy, Atrial fibrillation, S/p TAVR (transcatheter aortic valve replacement), bioprosthetic, Pacemaker, Weakness, Transaminitis, Thrombocytopenia, Acute kidney injury, Hypoxia Condition: Stable Coding Level of Care Code ED Tattoo Technician for Betsy Ziegler
--- NOTE | 2023-08-18 07:34 | XRR_ITS ---
PROCEDURE INFORMATION: Exam: XR Chest Exam date and time: 08/18/2023 7:46 AM Age: 83 years old Clinical indication: Injury or trauma; Fall; Cough and dyspnea; Blunt trauma (contusions or hematomas); Prior surgery; Surgery date: 6+ months; Surgery type: Pacemaker; Additional info: Dyspnea/cough TECHNIQUE: Imaging protocol: Radiologic exam of the chest. Views: 1 view. COMPARISON: CR XR chest 1V portable [id number] 06/22/2023 8:08 PM FINDINGS: Tubes, catheters and devices: Dual lead pacemaker is seen on the left. Lungs: Unremarkable. No consolidation. Pleural spaces: Unremarkable. No pleural effusion. No pneumothorax. Heart/Mediastinum: Heart size is normal. There is calcified plaque involving the aorta. Sternal wires are present from prior cardiac surgery. Bones/joints: Unremarkable. XR/XR chest 1V portable [id number] IMPRESSION: 1. No acute findings.
[2023-08-18 07:57] LABS: Basophils % 0.4 %; Hematocrit 38.6 % (37-53); Lymphocytes # 0.6 10^3/uL (0.8-4.8); Lymphocytes % 12.2 %; Mean Corpuscular HGB Conc 34.7 g/dL (30-55); Mean Corpuscular Hemoglobin 31.2 pg (27-33); Mean Corpuscular Volume 89.8 fl (82-101); Mean Platelet Volume 11.4 fL (7.4-10.4); Monocytes # 0.2 10^3/uL (0.2-0.9); Monocytes % 3.6 %; Neutrophils # 4.35 10^3/uL (1.8-7.7); Neutrophils % 83.2 %; Nucleated Red Blood Cells % 0 %; Platelet Count 91 10^3/cmm (157-399); Red Cell Distribution Width 14.2 % (12.1-15.1); White Blood Count 5.23 10^3/uL (3.29-11.43)
[2023-08-18 08:00] LABS: ABG PCO2 30.5 mmHg (35-45); Alveolar-Arterial Oxygen Gradi 14.9 mmHg (5-10); Arterial Blood Gas Hematocrit 41.7 % (42-52); Blood Gas Allen Test Pos; Blood Gas Operator Identificat CAK; Blood Gas Sample Site Brachial, left; Blood Gas Sample Type Arterial; Carboxyhemoglobin 0.8 %THgb (0.4-20.1); HCO3 ABG 23.5 mmol/L (22-26); HGB O2 Sat 95.1 % (95-100); Ionized Calcium Level - ABG 1.2 mmol/L (1.1-1.4); Methemoglobin 0.1 % (0.4-1.5); Oxygen Device NC; PO2 ABG 75.2 mmHg (80.0-100.0); PO2 FiO2 Ratio Arterial Blood 235; Potassium Level - ABG 3.2 mmol/L (3.5-5.0); Total Hemoglobin 13.6 g/dL (14-18)
[2023-08-18 08:12] LABS: Lactic Sepsis W/Reflex 2.4 mmol/L (0.5-2.2)
[2023-08-18 08:14] LABS: Troponin(5th) Baseline 57 ng/L (0-15)
[2023-08-18 08:22] LABS: Slide Review Slide Review Perform
[2023-08-18 08:24] LABS: Alanine Aminotransferase 73 U/L (0-41); Albumin Level 3.9 g/dL (3.5-5.2); Alkaline Phosphatase 62 U/L (40-130); Aspartate Amino Transferase 126 U/L (0-40); Blood Urea Nitrogen 51 mg/dL (8-23); Calcium 8.9 mg/dL (8.5-10.5); Carbon Dioxide 20 mmol/L (22-29); Chloride 95 mmol/L (98-107); Globulin 3.1 g/dL (1.3-4.6); Glucose 188 mg/dL (65-115); NT Pro B Type Natriuretic Pept 3647 pg/mL (0-450); Osmolality Calculated 295 mOsm/kg (285-295); Sodium 133 mmol/L (136-145); Total Bilirubin 0.5 mg/dL (0.15-1.2)
[2023-08-18 08:26] LABS: Anion Gap 21.4 (5-19); Potassium 3.4 mmol/L (3.5-5.1)
--- NOTE | 2023-08-18 09:15 | ECG_ITS ---
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 Measurements Intervals [place] Rate: 80 P: 0 GA: 0 QRS: -79 QRSD: 217 T: 0 QT: 476 QTc: 552 Interpretive Statements ELECTRONIC VENTRICULAR PACEMAKER ABNORMAL RHYTHM ECG Compared to ECG 08/18/2023 07:25:01 No significant changes Electronically Signed On 08-18-2023 11:43:19 CDT by Fabiola Paige M.D. [email or web address]
[2023-08-18 09:27] LABS: Add Urine Microscopic? YES; Bilirubin Urine Neg (Negative); Blood Urine 3+ (Negative); Glucose Urine UA 4+ (Normal); Ketones Urine Negative (Negative); Leukocyte Esterase Urine Negative (Negative); Nitrate Urine Negative (Negative); Protein Urine 1+ (Negative); Specific Gravity, Urine 1.015 (1.005-1.030); Urine Appearance Cloudy (CLEAR); Urine Color Yellow (Yellow); Urobilinogen Urine Neg (Negative); pH Urine 5 (5-7)
[2023-08-18 09:28] LABS: Bacteria Urine 2+ /hpf; Mucus Urine TRACE /hpf; RBC Urine 40-50 /hpf (0-2); Squamous Epithelial Cell Urine 0-4 /hpf (0-5); WBC Urine 0-4 /hpf (0-5)
[2023-08-18 09:29] LABS: Add Urine Culture? Yes; Amorphous Sediment Urine 2+ /hpf
[2023-08-18 09:33] LABS: Reflex Lactate Order REFLEX LACTIC ORDERD
[2023-08-18 09:37] LABS: Digoxin 1.1 ng/mL (0.6-1.2)
[2023-08-18 10:13] LABS: Troponin 5 2HR 58.21 ng/L (0-15); Troponin 5 2HR Delta 1.21 ABS# (0-10)
[2023-08-18 10:14] LABS: Lactic Acid level (Lactate) 2.8 mmol/L (0.5-2.2)
--- NOTE | 2023-08-18 10:50 | PM.HP ---
Providers/Chief Complaint Admitting Physician: Tom Nj MD Primary Care Provider: Destin Chung MD Chief Complaint: fall, weakness History of Present Illness Thong Salgaod Jr is a 83 year old male presenting to the emergency department with a chief complaint of weakness. He has been having issue for quite some time, but certainly worse in the last week. He has had some shortness of breath. He was hospitalized in June for similar condition and saw neurology, orthopedic spine surgery. They did not think any significant spinal stenosis was contributing to his condition nor neurologic condition. He reports no chest discomfort. During times within the interview he has some emotional episodes, feeling down that he cannot take care of himself anymore. No history of fever, vomiting, diarrhea. He reports he is trying to drink fluids but just does not feel like eating anymore. The emergency department has relayed to me on his pacemaker and evaluation there was some concern of capture of pacing. Cardiology is going to see the patient to evaluate. He has had some lower extremity swelling lately. In the emergency department he was placed on some oxygen and his pacemaker was evaluated. Sedimentation rate was performed last hospitalization and not significantly elevated. Review of Systems General: Reports: 10 or more systems reviewed and unremarkable except in HPI and below Card: Reports: swelling of feet/ankles; Denies: chest pain Resp: Reports: dyspnea; Denies: productive cough or non-productive cough GI: Reports: other (Anorexia); Denies: abdominal pain, nausea or vomiting Medications/Allergies Home Medications Medication Instructions Recorded Confirmed Last Taken Type ascorbic acid (vitamin C) 500 mg 500 mg PO DAILY 02/13/19 08/18/23 08/17/23 History tablet (Vitamin C) ferrous gluconate 324 mg (37.5 mg 324 mg PO DAILY 02/13/19 08/18/23 08/17/23 History iron) tablet glucosamine HCl 1,500 mg tablet 1,500 mg PO DAILY 06/17/19 08/18/23 08/17/23 History lutein 40 mg capsule 40 mg PO BID 06/17/19 08/18/23 08/17/23 History sour kumar extract 1,000 mg 1,000 mg PO DAILY 06/16/20 08/18/23 08/17/23 History capsule (Tart Kumar Extract) Eliquis 5 mg tablet (apixaban) 5 mg PO BID #180 tabs 01/18/23 08/18/23 08/17/23 Rx clopidogrel 75 mg tablet (Plavix) 75 mg PO DAILY #90 tabs 01/18/23 08/18/23 08/17/23 Rx digoxin 125 mcg (0.125 mg) tablet 125 mcg PO DAILY #90 tabs 01/18/23 08/18/23 08/17/23 Rx magnesium chloride 64 mg 64 mg PO BID #180 tabs 01/18/23 08/18/23 08/17/23 Rx (magnesium chloride) tablet,delayed release (Mag 64) potassium chloride 10 mEq 10 meq PO DAILY #90 tabs 01/18/23 08/18/23 06/20/23 Rx tablet,extended release sacubitril 49 mg-valsartan 51 mg 0.5 tab PO BID #90 tabs 01/18/23 08/18/23 08/17/23 Rx tablet (Entresto) spironolactone 25 mg tablet 25 mg PO DAILY #90 tabs 01/18/23 08/18/23 08/17/23 Rx colchicine 0.6 mg tablet 0.6 mg PO DAILY #90 tabs 03/22/23 08/18/23 08/17/23 Rx diclofenac sodium 1 % topical gel 2 g topical QID joint pain flare 03/22/23 08/18/23 06/20/23 Rx #100 grams febuxostat 40 mg tablet 80 mg (2 x 40 mg) PO DAILY #180 03/22/23 08/18/23 08/17/23 Rx tabs hydrocodone 5 mg-acetaminophen 325 1 tab PO BID PRN Pain 06/21/23 08/18/23 Unknown History mg tablet multivit,Ca,jzdl-RH-rzjrkczc-lutn 1 tab PO DAILY 06/21/23 08/18/23 08/17/23 History 18 mg-500 mcg-300 mcg-250 mcg tablet omega-3 fatty acids 1,000 mg 1,000 mg PO BID 06/21/23 08/18/23 08/17/23 History capsule rosuvastatin 20 mg tablet 20 mg PO BEDTIME 06/21/23 08/18/23 08/17/23 History vitamin B complex 1 tab PO DAILY 06/21/23 08/18/23 08/17/23 History furosemide 20 mg tablet 20 mg PO .IN AFTERNOON 08/18/23 08/18/23 08/17/23 History furosemide 40 mg tablet 40 mg PO QAM 08/18/23 08/18/23 08/17/23 History isosorbide mononitrate 30 mg 30 mg PO DAILY 08/18/23 08/18/23 08/17/23 History tablet,extended release 24 hr pantoprazole 40 mg tablet,delayed 40 mg PO DAILY 08/18/23 08/18/23 08/17/23 History release potassium citrate 99 mg capsule 99 mg PO BID 08/18/23 08/18/23 08/17/23 History sulfasalazine 500 mg tablet 1,000 mg PO BID 08/18/23 08/18/23 08/17/23 History Allergies Allergy/AdvReac Type Severity Reaction Status Date / Time ciprofloxacin Allergy Unknown unknown Verified 07/10/23 11:34 Penicillins Allergy Unknown unknown Verified 07/10/23 11:34 simvastatin Allergy unknown Verified 07/10/23 11:34 allopurinol AdvReac itching Verified 07/10/23 11:34 lisinopril AdvReac cough Verified 07/10/23 11:34 PFSH Acute PFSH: Medical History (Updated 08/18/23 @ 11:10 by Tom Nj MD) Atrial fibrillation Lumbar stenosis with neurogenic claudication Degenerative disc disease Vertebral artery stenosis Aortic aneurysm Weakness Weakness of both lower extremities Lactic acidosis Fever of unknown origin Acute urinary retention Leg weakness History of nonmelanoma skin cancer Gout COVID-19 vaccine administered Macular degeneration Seropositive rheumatoid arthritis of multiple sites Immunization counseling High risk medication use Osteoarthritis of knees, bilateral Inflammatory arthritis Gout, arthritis Edema, peripheral Coronary arteriosclerosis after coronary artery bypass grafting CABG x2 (OLSON to LAD and SVG to OM, 05/08/2008) Cardiomyopathy LVEF has decreased from 45% to 35% by echocardiogram. Cataract Cardiac arrhythmia Pacemaker Dual-chamber Mixed hyperlipidemia last lipid panel 2020: Cholesterol 93, triglycerides 78, LDL 55. Thoracic aneurysm without mention of rupture Ascending aortic aneurysm 4.4cm by CT 07/2017 Essential hypertension Surgical History History of surgical removal of ganglion cyst Hx of cataract surgery S/p TAVR (transcatheter aortic valve replacement), bioprosthetic Hx of CABG Hx of appendectomy H/O foot surgery Family History Mother Dementia Other CAD (coronary artery disease) Diabetes Hyperlipidemia Hypertension Stroke Denies family history of Clotting disorder Psychiatric illness Chronic kidney disease (CKD) Suicide Anesthesia complication Bleeding disorder Family history of premature coronary artery disease Lung disease Cancer Social History Smoking and tobacco/nicotine status: never used tobacco/nicotine Alcohol intake: never Substance/Drug Use: never Household members: significant other Housing: House Vitals/I&O/Wt Last Vital Signs Temp 98.4 F 08/18/23 07:21 Pulse 82 08/18/23 10:15 Resp 18 08/18/23 07:21 BP 110/57 08/18/23 10:15 Pulse Ox 96 08/18/23 10:15 O2 Del Method Nasal Cannula 08/18/23 10:15 O2 Flow Rate 2 08/18/23 10:15 Physical Exam Narrative: General exam demonstrates emotional white male, on 2 L of oxygen with a saturation 96%. HEENT: Atraumatic normocephalic. Oropharynx clear. Neck is supple no lymphadenopathy thyromegaly Cardiovascular regular rate rhythm with a 2/6 systolic murmur with frequent premature beats Lungs diminished breath sounds at the bases but clear Abdomen is soft nontender with positive bowel sounds Extremities trace edema bilaterally. No cyanosis or clubbing Skin no rash, some excoriations noted on legs Neuro no obvious focal deficits Data 08/18/23 07:42 08/18/23 07:42 Other Labs: ABG demonstrates pH 7.5, pCO2 30, pO2 75 on 3 L. LFTs demonstrate an AST of 126, ALT of 73. Troponin 57 with repeat of 58 Lactic acid 2.4 with repeat of 2.8 BNP 3647 Urine red blood cells 40-50, 0-4 whites. Negative nitrates and negative leukocyte Estrace. Respiratory panel has been ordered and pending Digoxin level 1.1 Hemoglobin A1c in June was 6.5 Chest x-ray by my read demonstrates some atherosclerosis, prior cardiac surgery, slight blunting left costophrenic angle EKG demonstrates a paced ventricular rhythm Micro: Microbiology 08/18/23 08:00 Blood Culture - Preliminary Blood SPECIMEN COLLECTED 08/18/23 07:58 Blood Culture - Preliminary Blood SPECIMEN COLLECTED A&P Assessment and plan (1) Cardiomyopathy: Patient with history of significant cardiomyopathy. EF has been low on multiple echocardiograms and although the one on July 27 was thought to be around 50%, considering previous ones were significantly lower this may be in question. Overall this was a very poor study as well. Diastolic function could not be determined but he has significant history of diastolic dysfunction previously. He has very mild edema on exam today. He has requiring a small amount of oxygen, 2 L. BNP is slightly elevated. Last hospital stay he did have fluid overload during his hospital stay when Lasix was held. At this point we will discontinue his Lasix and give him a small dose of torsemide, with close follow-up of creatinine tomorrow. I do not think it would be useful to repeat an echocardiogram at this time. He does have a pacemaker which has been analyzed. There are some issues with sensing capture which cardiology is going to review as well as his cardiomyopathy and history of coronary disease Digoxin will not be ideal to continue considering his renal function. Hold at this point and reassess. Low-dose beta-deniz may be better overall. Hold Entresto secondary to renal dysfunction Qualifiers: Cardiomyopathy type: other Qualified Code(s): I42.8 - Other cardiomyopathies (2) Weakness: Patient with global weakness, likely multifactorial. He has cardiomyopathy, rheumatoid arthritis, advancing age, etc. Physical therapy consultation He would likely benefit from rehabilitation (3) Atherosclerosis of coronary artery of [place] heart without angina pectoris: See notations above Continue Imdur, Plavix, statin. Check CK secondary to statin. Serial troponins Qualifiers: Coronary Disease-Associated Artery/Lesion type: [place] artery Qualified Code(s): I25.10 - Atherosclerotic heart disease of [place] coronary artery without angina pectoris (4) Hypokalemia: Supplement potassium (5) Depression: Initiate sertraline 25 mg daily (6) Seropositive rheumatoid arthritis of multiple sites: Hold sulfasalazine secondary to renal dysfunction (7) Transaminitis: Check hepatitis panel, respiratory panel Follow daily (8) Thrombocytopenia: See above, repeat tomorrow (9) Acute kidney injury: Continue to follow closely Bladder scan to make sure no retention Hold Aldactone currently (10) Hyperglycemia: Check hemoglobin A1c Consistent carb diet Plan Multiple other medical problems as outlined in past medical history No need to be on both of fubuxostat and allopurinol. Continue febuxostat. Allow natural Eliquis will suffice for DVT prophylaxis Attestations Medical Necessity Statement*: Will require less than 2 midnight stay secondary to significant weakness with mild acute kidney injury and hypoxia Diagnoses Other cardiomyopathy I42.8 Cardiomyopathy type: other Weakness R53.1 Atherosclerosis of [place] coronary artery of [place] heart without angina pectoris I25.10 Coronary Disease-Associated Artery/Lesion type: [place] artery Hypokalemia E87.6 Depression F32.A Seropositive rheumatoid arthritis of multiple sites M05.79 Transaminitis R74.01 Thrombocytopenia D69.6 Acute kidney injury N17.9 Hyperglycemia R73.9 Time Spent (min) 54
[2023-08-18 11:24] LABS: Adenovirus Not Detected (NOT DETECT); Chlamydia Pneumoniae Not Detected (NOT DETECT); Coronavirus 229E,HKU1,NL63,OC4 Not Detected (NOT DETECT); Human Metapneumovirus Not Detected (NOT DETECT); Human Rhinovirus/Enterovirus Not Detected (NOT DETECT); Influenza A Not Detected (NOT DETECT); Influenza A H1 Not Detected (NOT DETECT); Influenza A H1-2009 Not Detected (NOT DETECT); Influenza A H3 Not Detected (NOT DETECT); Influenza B Not Detected (NOT DETECT); Mycoplasma Pneumoniae Not Detected (NOT DETECT); Parainfluenza Virus Type 1 Not Detected (NOT DETECT); Parainfluenza Virus Type 2 Not Detected (NOT DETECT); Parainfluenza Virus Type 3 Not Detected (NOT DETECT); Parainfluenza Virus Type 4 Not Detected (NOT DETECT); Respiratory Syncytial Virus A Not Detected (NOT DETECT); Respiratory Syncytial Virus B Not Detected (NOT DETECT); SARS-COV-2 Not Detected (NOT DETECT)
[2023-08-18 11:31] LABS: Magnesium 2.8 mg/dL (1.7-2.3)
[2023-08-18 11:32] LABS: Creatine Phosphokinase 179 U/L (39-308)
[2023-08-18 11:44] LABS: Estmated Average Glucose 131; Hemoglobin A1C 6.2 % (4.0-6.0)
[2023-08-18 11:48] LABS: Vitamin B12 775 pg/mL (232-1245)
[2023-08-18] MEDS: potassium chloride ER 20 mEq Tablet 40 MEQ PO (11:57)
[2023-08-18 13:56] LABS: Troponin 5 6HR 58.47 ng/L (0-15); Troponin 5 6HR Delta 1.47 ng/L (0-12)
[2023-08-18 13:56] LABS: C Reactive Protein 92.4 mg/L (0.0-4.9)
--- NOTE | 2023-08-18 14:06 | PC.NURSE ---
Patient transferred to CSU from ED at 1350.
[2023-08-18 14:19] LABS: Hepatitis A Antibody IgM Non-Reactive (Nonreactive); Hepatitis B Core IgM Non-Reactive (Nonreactive); Hepatitis B Surface Antigen Non-Reactive (Nonreactive); Hepatitis C Virus Antibody Non-Reactive (Nonreactive)
--- NOTE | 2023-08-18 14:27 | ECG_ITS ---
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 Measurements Intervals [place] Rate: 92 P: 0 SD: 0 QRS: -87 QRSD: 178 T: 91 QT: 452 QTc: 559 Interpretive Statements ELECTRONIC VENTRICULAR PACEMAKER Possible atrial fibrillation with demand V pacing ABNORMAL RHYTHM ECG Compared to ECG 08/18/2023 09:15:38 No significant changes Electronically Signed On 08-18-2023 20:02:23 CDT by Hamzah Montes M.D. [email or web address]
[2023-08-18] MEDS: TORSEmide 20 mg Tablet 10 MG PO (14:35)
--- NOTE | 2023-08-18 14:47 | CTR_ITS ---
PROCEDURE INFORMATION: Exam: CT Abdomen And Pelvis Without Contrast Exam date and time: 08/18/2023 3:36 PM Age: 83 years old Clinical indication: Other: Hematuria; Prior surgery; Surgery date: 6+ months; Surgery type: Appendectomy TECHNIQUE: Imaging protocol: Computed tomography of the abdomen and pelvis without contrast. Sagittal and coronal reformatted images were created and reviewed. Radiation optimization: All CT scans at this facility use at least one of these dose optimization techniques: automated exposure control; mA and/or kV adjustment per patient size (includes targeted exams where dose is matched to clinical indication); or iterative reconstruction. COMPARISON: CT abdomen pelvis w con* [id number] 06/20/2023 8:31 PM RADIATION DOSE METRICS: Total DLP (mGy-cm): 764.11 FINDINGS: Limitations: Evaluation of solid organs and vasculature is limited without intravenous contrast. Tubes, catheters and devices: Leads from a cardiac pacer are stable in position in the right atrium and right ventricle. Lungs: Dependent atelectasis in the lungs bilaterally. Numerous calcified granulomas in the visualized lower lungs. Pleural spaces: No pleural effusion. Heart: Stable marked enlargement of the visualized portions of the heart. Stable calcification of the mitral valve annulus. A prosthetic aortic valve is stable in position. Coronary arteries: Stable extensive atherosclerotic calcification in the coronary arteries. Liver: The liver is unremarkable. Gallbladder and biliary ducts: The gallbladder is unremarkable. No biliary ductal dilatation. Pancreas: Stable moderate atrophy of the pancreatic parenchyma. No pancreatic ductal dilatation. Spleen: The spleen is unremarkable. Small splenule in the left upper quadrant. Adrenal glands: The right and left adrenal glands are unremarkable. Kidneys and ureters: 2 cysts in the right kidney are stable, the larger measures 2.5 cm. The left kidney is unremarkable. The right and left ureters are unremarkable. Stomach and bowel: Scattered diverticula in the colon. No evidence for diverticulitis. Fluid within the small bowel and colon without evidence of bowel wall thickening. Appendix: Appendix not definitely visualized (by history the patient has had a prior appendectomy). No inflammatory changes in the pericecal region. Intraperitoneal space: No free intraperitoneal air. No ascites. No loculated fluid collections to suggest an abscess. Vasculature: Stable extensive atherosclerotic calcifications in the visualized arteries. No evidence for aortic aneurysm. Lymph nodes: No lymphadenopathy. Urinary bladder: Diffuse, moderate bladder wall thickening with a trabeculated appearance of the bladder wall. Reproductive: Stable moderate enlargement of the prostate gland. Stable nonspecific parenchymal calcifications in the prostate gland. Stable calcifications in the vas deferens. Bones/joints: Bones are diffusely osteopenic. Poststernotomy changes in the chest. Degenerative changes in the spine, sacroiliac joints, and hips. Osseous findings are stable. Soft tissues: .No acute abnormality in the extra-abdominal soft tissues. CT/CT kidney stone [id number] IMPRESSION: 1. Fluid within the small bowel and colon without evidence of bowel wall thickening. This may reflect viral gastroenteritis in the appropriate clinical situation. 2. Diffuse, moderate bladder wall thickening with a trabeculated appearance of the bladder wall. In the correct clinical setting, this may suggest cystitis. Recommend correlation with laboratory findings. Alternatively, this may be secondary to chronic outlet obstruction. 3. Stable calcifications in the vas deferens. Findings raise suspicion for diabetes mellitus. Recommend clinical correlation. 4. Scattered diverticula in the colon. No evidence for diverticulitis. 5. Incidental/nonacute findings are listed in the report.
--- NOTE | 2023-08-18 15:09 | XRR_ITS ---
PROCEDURE INFORMATION: Exam: XR Thoracic Spine Exam date and time: 08/18/2023 3:43 PM Age: 83 years old Clinical indication: Pain in thoracic spine TECHNIQUE: Imaging protocol: Radiologic exam of the thoracic spine. Views: 3 views. COMPARISON: CT thoracic spin wo con* [id number] 06/20/2023 10:42 PM FINDINGS: Tubes, catheters and devices: Leads from a dual-lead cardiac pacer via left subclavian approach. Bones/joints: Vertebral body height is maintained. No subluxation. Bones are diffusely osteopenic. Stable multilevel degenerative changes of varying severity in the visualized spine. Poststernotomy changes in the chest. No acute fracture. Soft tissues: No paravertebral soft tissue abnormality. No radiopaque foreign body. Lungs: Visualized lungs are clear. Heart/Mediastinum: A prosthetic aortic valve is stable in position. XR/XR thoracic spine 2V [id number] IMPRESSION: 1. No acute fracture of the thoracic spine. CT scan would be recommended if there is continuing clinical concern for fracture. 2. Stable multilevel degenerative changes of varying severity in the visualized spine. 3. Incidental/nonacute findings are listed in the report.
--- NOTE | 2023-08-18 15:09 | CTR_ITS ---
PROCEDURE INFORMATION: Exam: CT Head Without Contrast Exam date and time: 08/18/2023 3:32 PM Age: 83 years old Clinical indication: Injury or trauma; Fall; Blunt trauma (contusions or hematomas) TECHNIQUE: Imaging protocol: Computed tomography of the head without contrast. Sagittal and coronal reformatted images were created and reviewed. Radiation optimization: All CT scans at this facility use at least one of these dose optimization techniques: automated exposure control; mA and/or kV adjustment per patient size (includes targeted exams where dose is matched to clinical indication); or iterative reconstruction. COMPARISON: CT angio headneck* [id number] 06/21/2023 12:33 PM RADIATION DOSE METRICS: Total DLP (mGy-cm): 1147.68 FINDINGS: Brain: No acute intracranial hemorrhage. No acute infarct. No intra-axial or extra-axial masses. Peña-white matter differentiation is preserved. No cerebral edema. No extra-axial fluid collections. No midline shift. Stable moderate atrophy of the brain parenchyma. Stable moderately decreased attenuation in the deep white matter, consistent with moderate chronic microangiopathic change. Cerebral ventricles: No hydrocephalus. Paranasal sinuses: Visualized paranasal sinuses are clear. Mastoid air cells: Visualized mastoid air cells are clear. Orbital cavities: Globes and lenses, extraocular muscles, and optic nerves are intact bilaterally. No acute intraorbital abnormality. Bones: Bones are diffusely osteopenic. Soft tissues: The extracranial soft tissues are unremarkable. Vasculature: Stable atherosclerotic calcifications in the visualized arteries. CT/CT head wo con* [id number] IMPRESSION: 1. No acute abnormality of the brain. 2. Stable moderate atrophy of the brain parenchyma. 3. Stable moderate chronic white matter microangiopathic change. 4. Incidental/nonacute findings are listed in the report.
[2023-08-18] MEDS: cefTRIAXone 1,000 mg SDV 1000 MG IVP (16:12)
[2023-08-18 16:48] LABS: Glucose Point of Care 289 mg/dL (70-110)
--- NOTE | 2023-08-18 16:49 | PC.NURSE ---
Dr Paige ordered metoprolol 25mg starting right now, and metoprolol 25mg BID starting at 2100 today. Orders entered.
--- NOTE | 2023-08-18 16:51 | PC.NURSE ---
Patients bed side accucheck was 289 after eating.
[2023-08-18] MEDS: apixaban 5 mg Tablet PO (17:00)
[2023-08-18] MEDS: doxycycline 100 mg Tablet PO (17:00)
[2023-08-18] MEDS: docusate sodium 100 mg Capsule PO (17:00)
[2023-08-18] MEDS: metoprolol tartrate 25 mg Tablet PO ×2 (17:00→20:47)
--- NOTE | 2023-08-18 17:10 | P.CONIM_ITS ---
Providers/Reason For Consult 2 Consulting Physician/Specialty*: Medicine/ER Reason for Consult*: Permanent pacemaker, heart failure, frequent PVCs Requesting Physician: Dr. Nj Attending Physician: Tom Nj MD Primary Care Provider: Destin Chung MD History of Present Illness History of Present Illness Thong Salgado Jr is a 83 year old male with a significant cardiac history of coronary disease, TAVR, status post permanent pacemaker, underlying atrial fibrillation, moderately low LVEF 40%, admitted today with the generalized weakness, some shortness of air and overall deterioration of his health status. He denies any chest pain. I reviewed admission notes, lab data and discussed with the hospitalist. Overall patient is having mild heart failure symptoms with the minimum volume overloaded. There is a possibility of UTI. ECG and rhythm strip shows ventricular pacemaking with underlying rhythm of atrial fibrillation. There are a frequent PVCs. Recent pacemaker check ulcers showed a couple of episodes of short nonsustained runs of VT. Overall patient is stable from cardiovascular point of view. No active angina or heart failure symptoms. Review of Systems 2 Narrative: Patient is a poor historian and appears he appears to be depressed. Detailed systemic review was difficult to obtain. However overall cardiac status appears stable. No apparent abdominal, respiratory signs symptoms. He is basically bedbound AND Systemic review unremarkable. Medications/Allergies Home Medications Medication Instructions Recorded Confirmed Last Taken Type ascorbic acid (vitamin C) 500 mg 500 mg PO DAILY 02/13/19 08/18/23 08/17/23 History tablet (Vitamin C) ferrous gluconate 324 mg (37.5 mg 324 mg PO DAILY 02/13/19 08/18/23 08/17/23 History iron) tablet glucosamine HCl 1,500 mg tablet 1,500 mg PO DAILY 06/17/19 08/18/23 08/17/23 History lutein 40 mg capsule 40 mg PO BID 06/17/19 08/18/23 08/17/23 History sour kumar extract 1,000 mg 1,000 mg PO DAILY 06/16/20 08/18/23 08/17/23 History capsule (Tart Kumar Extract) Eliquis 5 mg tablet (apixaban) 5 mg PO BID #180 tabs 01/18/23 08/18/23 08/17/23 Rx clopidogrel 75 mg tablet (Plavix) 75 mg PO DAILY #90 tabs 12/08/18/23 08/17/23 Rx digoxin 125 mcg (0.125 mg) tablet 125 mcg PO DAILY #90 tabs 01/18/23 08/18/23 08/17/23 Rx magnesium chloride 64 mg 64 mg PO BID #180 tabs 01/18/23 08/18/23 08/17/23 Rx (magnesium chloride) tablet,delayed release (Mag 64) potassium chloride 10 mEq 10 meq PO DAILY #90 tabs 01/18/23 08/18/23 06/20/23 Rx tablet,extended release sacubitril 49 mg-valsartan 51 mg 0.5 tab PO BID #90 tabs 01/18/23 08/18/23 08/17/23 Rx tablet (Entresto) spironolactone 25 mg tablet 25 mg PO DAILY #90 tabs 01/18/23 08/18/23 08/17/23 Rx colchicine 0.6 mg tablet 0.6 mg PO DAILY #90 tabs 03/22/23 08/18/23 08/17/23 Rx diclofenac sodium 1 % topical gel 2 g topical QID joint pain flare 03/22/23 08/18/23 06/20/23 Rx #100 grams febuxostat 40 mg tablet 80 mg (2 x 40 mg) PO DAILY #180 03/22/23 08/18/23 08/17/23 Rx tabs hydrocodone 5 mg-acetaminophen 325 1 tab PO BID PRN Pain 06/21/23 08/18/23 Unknown History mg tablet multivit,Ca,gptz-DN-xfnalykl-lutn 1 tab PO DAILY 06/21/23 08/18/23 08/17/23 History 18 mg-500 mcg-300 mcg-250 mcg tablet omega-3 fatty acids 1,000 mg 1,000 mg PO BID 06/21/23 08/18/23 08/17/23 History capsule rosuvastatin 20 mg tablet 20 mg PO BEDTIME 06/21/23 08/18/23 08/17/23 History vitamin B complex 1 tab PO DAILY 06/21/23 08/18/23 08/17/23 History furosemide 20 mg tablet 20 mg PO .IN AFTERNOON 08/18/23 08/18/23 08/17/23 History furosemide 40 mg tablet 40 mg PO QAM 08/18/23 08/18/23 08/17/23 History isosorbide mononitrate 30 mg 30 mg PO DAILY 08/18/23 08/18/23 08/17/23 History tablet,extended release 24 hr pantoprazole 40 mg tablet,delayed 40 mg PO DAILY 08/18/23 08/18/23 08/17/23 History release potassium citrate 99 mg capsule 99 mg PO BID 08/18/23 08/18/23 08/17/23 History sulfasalazine 500 mg tablet 1,000 mg PO BID 08/18/23 08/18/23 08/17/23 History Allergies Allergy/AdvReac Type Severity Reaction Status Date / Time ciprofloxacin Allergy Unknown unknown Verified 07/10/23 11:34 Penicillins Allergy Unknown unknown Verified 07/10/23 11:34 simvastatin Allergy unknown Verified 07/10/23 11:34 allopurinol AdvReac itching Verified 07/10/23 11:34 lisinopril AdvReac cough Verified 07/10/23 11:34 Current Medications Generic Name Dose Route Start Last Admin Trade Name Freq PRN Reason Stop Dose Admin Apixaban 5 mg 08/18/23 18:00 08/18/23 17:00 Apixaban 5 Mg Tablet PO 5 mg BID SLIME Administration Ceftriaxone Sodium 1,000 mg 08/18/23 15:00 08/18/23 16:12 Ceftriaxone 1,000 Mg Sdv IVP 1,000 mg Q24H SLIME Administration Protocol Docusate Sodium 100 mg 08/18/23 18:00 08/18/23 17:00 Docusate Sodium 100 Mg Capsule PO 100 mg BID SLIME Administration Doxycycline Monohydrate 100 mg 08/18/23 18:00 08/18/23 17:00 Doxycycline 100 Mg Tablet PO 100 mg BID SLIME Administration Protocol Torsemide 10 mg 08/18/23 14:02 08/18/23 14:35 Torsemide 20 Mg Tablet PO 10 mg DAILY SLIME Administration PFSH Acute 2 PFSH: Medical History Atrial fibrillation Lumbar stenosis with neurogenic claudication Degenerative disc disease Vertebral artery stenosis Aortic aneurysm Weakness Weakness of both lower extremities Lactic acidosis Fever of unknown origin Acute urinary retention Leg weakness History of nonmelanoma skin cancer Gout COVID-19 vaccine administered Macular degeneration Seropositive rheumatoid arthritis of multiple sites Immunization counseling High risk medication use Osteoarthritis of knees, bilateral Inflammatory arthritis Gout, arthritis Edema, peripheral Coronary arteriosclerosis after coronary artery bypass grafting CABG x2 (OLSON to LAD and SVG to OM, 05/08/2008) Cardiomyopathy LVEF has decreased from 45% to 35% by echocardiogram. Cataract Cardiac arrhythmia Pacemaker Dual-chamber Mixed hyperlipidemia last lipid panel 2019: Cholesterol 93, triglycerides 78, LDL 55. Thoracic aneurysm without mention of rupture Ascending aortic aneurysm 4.4cm by CT 07/2017 Essential hypertension Surgical History History of surgical removal of ganglion cyst Hx of cataract surgery S/p TAVR (transcatheter aortic valve replacement), bioprosthetic Hx of CABG Hx of appendectomy H/O foot surgery Family History Mother Dementia Other CAD (coronary artery disease) Diabetes Hyperlipidemia Hypertension Stroke Denies family history of Clotting disorder Psychiatric illness Chronic kidney disease (CKD) Suicide Anesthesia complication Bleeding disorder Family history of premature coronary artery disease Lung disease Cancer Social History Smoking and tobacco/nicotine status: never used tobacco/nicotine Alcohol intake: never Substance/Drug Use: never Household members: significant other Housing: House Vitals/I&O/Wt Last Vital Signs Temp 97.7 F 08/18/23 16:00 Pulse 80 08/18/23 16:00 Resp 28 H 08/18/23 16:00 BP 122/58 08/18/23 16:00 Pulse Ox 96 08/18/23 16:00 O2 Del Method Nasal Cannula 08/18/23 16:00 O2 Flow Rate 2 08/18/23 10:15 Weight last 48 hrs Weight 177 lb 8 oz Physical Exam 2 Const: OTHER: Patient laying comfortably on his bed. He is not in any respiratory distress. Vitals are stable. Blood pressure 124/60. Heart rate 82 bpm. With intermittent PVCs. HENMT: OTHER: HEENT exam unremarkable. JVP not raised. Neck/C-Spine: COMMON NORMALS: full ROM, supple and no JVD Chest: OTHER: Good air entry with minimal rales at the bases more on the right base. Cardio: COMMON NORMALS: no JVD OTHER: Underlying right atrial fib with ventricular pacing. Normal first and second heart sounds. Systolic murmur of MR and mild TR. GI: OTHER: Soft nontender abdomen. Bowel sounds audible. Extremity: NARRATIVE EXTREMITY EXAM: Minimal edema at ankles/lower extremities bilaterally. Otherwise unremarkable extremities. Neuro: OTHER: Neuroexam showed grossly intact system. Skin: OTHER: Skin warm and dry. Data 08/18/23 07:42 08/18/23 07:42 Micro: Microbiology 08/18/23 08:00 Blood Culture - Preliminary Blood SPECIMEN COLLECTED 08/18/23 07:58 Blood Culture - Preliminary Blood SPECIMEN COLLECTED A&P Assessment and plan (1) Atrial fibrillation: Qualifiers: Atrial fibrillation type: persistent (not longstanding) Qualified Code(s): I48.19 - Other persistent atrial fibrillation (2) Pacemaker: (3) Systolic and diastolic CHF, chronic: Plan 83-year-old male with significant cardiac history, now admitted with 1. Generalized deterioration of overall health status. 2. Minimal edema at the lower extremities. No active heart failure symptoms. 3. No active angina. 4. Patient is having a ventricular paced rhythm with intermittent and frequent PVCs up. Recommendations: Noted home and adjustment of his home medication by the medicine team. I agree discontinuing digoxin. Recommend starting him on low-dose of metoprolol at 25 mg twice a day. Coding Level of Care Code 62426 Diagnoses Persistent atrial fibrillation I48.19 Atrial fibrillation type: persistent (not longstanding) Pacemaker Z95.0 Systolic and diastolic CHF, chronic I50.42 Time Spent (min) 30
[2023-08-18] MEDS: atorvastatin 40 mg Tablet PO (20:46)
[2023-08-19] VITALS (39 sets, daily range): BP systolic 74–115; BP diastolic 52–64; PULSE 66–86; RESP 17–47; TEMP 36.4–36.9; O2SAT 77–98
[2023-08-19 04:07] LABS: Basophils % 0.2 %; Hematocrit 39.1 % (37-53); Lymphocytes % 18.9 %; Mean Corpuscular Hemoglobin 30.9 pg (27-33); Mean Corpuscular Volume 90.9 fl (82-101); Mean Platelet Volume 11.3 fL (7.4-10.4); Monocytes # 0.1 10^3/uL (0.2-0.9); Monocytes % 2.4 %; Neutrophils # 4.13 10^3/uL (1.8-7.7); Neutrophils % 77.6 %; Nucleated Red Blood Cells % 0 %; Platelet Count 73 10^3/cmm (157-399); Red Cell Distribution Width 14.4 % (12.1-15.1); White Blood Count 5.33 10^3/uL (3.29-11.43)
[2023-08-19 04:38] LABS: Alanine Aminotransferase 208 U/L (0-41); Albumin Level 3.4 g/dL (3.5-5.2); Alkaline Phosphatase 61 U/L (40-130); Anion Gap 17.5 (5-19); Aspartate Amino Transferase 410 U/L (0-40); Blood Urea Nitrogen 61 mg/dL (8-23); Calcium 9.1 mg/dL (8.5-10.5); Carbon Dioxide 24 mmol/L (22-29); Chloride 99 mmol/L (98-107); Creatinine Clr Calc Pharmacy 31.6393; Glucose 116 mg/dL (65-115); Magnesium 2.7 mg/dL (1.7-2.3); Osmolality Calculated 302 mOsm/kg (285-295); Potassium 3.5 mmol/L (3.5-5.1); Sodium 137 mmol/L (136-145); Total Bilirubin 0.4 mg/dL (0.15-1.2); Total Protein 6.4 g/dL (6.6-8.7)
[2023-08-19] MEDS: sertraline 50 mg Tablet 25 MG PO (10:11)
[2023-08-19] MEDS: pantoprazole DR 40 mg Tablet PO (10:11)
[2023-08-19] MEDS: clopidogrel 75 mg Tablet PO (10:13)
[2023-08-19] MEDS: apixaban 5 mg Tablet PO ×2 (10:14→17:29)
--- NOTE | 2023-08-19 11:03 | USCV_ITS ---
Thong Salgado Age: 83 Gender: M : 1940 Exam Date: 08/19/2023 14:34 Ordering Phys: Rafael Vale MD Technologist: Christiano Cueto Exam Location: [facility] [place] Indication: EF BP: 99 / 60 HR: Rhythm: Sinus Technical Quality: Adequate MEASUREMENTS (Male / Female) Normal Values 2D ECHO LV Diastolic Diameter PLAX 3.5 cm 4.2 - 5.9 / 3.9 - 5.3 cm IVS Diastolic Thickness 0.9 cm 0.6 - 1.0 / 0.6 - 0.9 cm IVS Systolic Thickness 1.4 cm LVPW Diastolic Thickness 1.3 cm 0.6 - 1.0 / 0.6 - 0.9 cm LVPW Systolic Thickness 1.3 cm LVOT Diameter 2.0 cm LV Ejection Fraction 2D Teich 50.2 % LV Ejection Fraction MOD 4C 41.7 % LV Ejection Fraction MOD 2C 30.9 % LV Ejection Fraction 2C AL 31.3 % LA Diameter 4.0 cm RA Systolic Volume 4C AL 56.9 ml RA Systolic Volume 4C MOD 48.1 ml LA Sys Volume AL 68.6 cm cubed LA Sys Volume Index AL 27.5 cm cubed/m squared Aorta at Sinotubular Diameter 2.6 cm IVC Diameter 1.8 cm M-MODE LA Ao Ratio MM 1.6 AV Cusp Separation MM 2.3 cm FINDINGS Left Ventricle Moderate global hypokinesis with reduced LV systolic function. Estimated LVEF 35 to 40%. Right Ventricle Normal right ventricular size. Right Atrium Normal right atrial size. Left Atrium Dilated left atrium Mitral Valve Aortic Valve Tricuspid Valve Pulmonic Valve Pericardium Aorta IVC CONCLUSIONS Limited echo to assess LV systolic functions. Moderately reduced LV systolic function with global hypokinesis. Estimated LVEF 35 to 40%. Dilated left atrium. Compared to last echo on 07/09, there is no significant change in LV systolic function. Fabiola Paige MD (Electronically Signed) Final Date: 19 August 2023 15:37 S
--- NOTE | 2023-08-19 11:20 | PC.NURSE ---
pt's bp has been soft.dr gaona aware...he dc'd demedex,put imdur on hold.will administer ivf's as ordered...and recheck bp for metoprolol administration
[2023-08-19 11:37] LABS: Iron 117 ug/dL (59-158); Percent Saturation 58.2 % (20-50); Total Iron Binding Capacity 201 mcg/dl; Unsaturated Iron Binding 84 ug/dL (112-347)
[2023-08-19] MEDS: sodium chloride 0.9% 1,000 ML 75 ML IV (11:41)
--- NOTE | 2023-08-19 11:47 | P.PN_ITS ---
Subjective 2 Subjective: I saw Mr. Quan this morning. Clinically he is stable from cardiovascular point of view. No angina. No active heart failure. overall he appears dry. I note his creatinine is up from 1.6 to 1.9. He is having some short runs of VT this morning. The longest run was 10 beats. Clinically stable. Blood pressures on the lower side probably because of likely UTI and dehydration. Vitals/I&O/Wt Last Vital Signs Temp 98.2 F 08/19/23 08:00 Pulse 80 08/19/23 08:27 Resp 20 H 08/19/23 08:27 BP 98/52 08/19/23 08:00 Pulse Ox 96 08/19/23 08:27 O2 Del Method Nasal Cannula 08/19/23 08:27 O2 Flow Rate 3 08/19/23 08:27 Weight last 48 hrs Weight 170 lb Weight 177 lb 8 oz Physical Exam 2 Narrative: Laying comfortably. No respiratory distress. Blood pressure on the lower side 90-100 systolic. No pedal edema Const: OTHER: Unremarkable lipid HENMT: OTHER: No JVD. Neck/C-Spine: COMMON NORMALS: full ROM and no JVD Resp: OTHER: Good air entry bilaterally, minimal rales at the right base. Cardio: COMMON NORMALS: no JVD, S1 normal heart sound present and S2 normal heart sound present HEART SOUNDS: S1 normal heart sound present and S2 normal heart sound present OTHER: Soft systolic murmur. GI: OTHER: Soft nontender. Bowel sounds audible. Extremity: OTHER: Unremarkable. No pedal edema. Neuro: OTHER: Grossly intact Skin: OTHER: Warm and dry. Data 08/19/23 03:28 08/19/23 03:28 Micro: Microbiology 08/18/23 08:00 Blood Culture - Preliminary Blood NEGATIVE TO DATE 08/18/23 07:58 Blood Culture - Preliminary Blood NEGATIVE TO DATE A&P Assessment and plan (1) Systolic and diastolic CHF, chronic: (2) Pacemaker: (3) Atrial fibrillation: Qualifiers: Atrial fibrillation type: persistent (not longstanding) Qualified Code(s): I48.19 - Other persistent atrial fibrillation Plan 84-year-old male patient with a significant previous cardiac history, including PPM Overall clinically stable however he is having recurrent short runs of nonsustained VT. Blood pressure is on the lower side most likely due to dehydration and likely urinary tract infection. Patient was started on beta-deniz yesterday, however in spite of being on metoprolol he is having a short runs of nonsustained VT. Therefore plan to start him on amiodarone. Rest of treatment as per medical team. Attestations 2 Medical Necessity Statement*: Abnormal heart rhythm, short runs of VT requiring intravenous amiodarone. Coding Level of Care Code 42798 Diagnoses Systolic and diastolic CHF, chronic I50.42 Pacemaker Z95.0 Persistent atrial fibrillation I48.19 Atrial fibrillation type: persistent (not longstanding)
[2023-08-19 12:23] LABS: Lactate (Lactic Acid level) 2.2 mmol/L (0.5-2.2)
[2023-08-19 12:31] LABS: Cortisol Random 36.33 ug/dL (2.47-19.5)
[2023-08-19] MEDS: metoprolol tartrate 25 mg Tablet 12.5 MG PO ×2 (12:52→20:14)
[2023-08-19 13:02] LABS: Potassium, Radom Urine 40 mmol/L; Urine Creatinine 104 mg/dL (39-259)
[2023-08-19 13:13] LABS: Urine Random Chloride 15 mmol/L; Urine Random Sodium 15 mmol/L
[2023-08-19] MEDS: amiodarone 150 MG/100 ML PREMIX 200 MG IV (13:24)
--- NOTE | 2023-08-19 13:24 | PC.NURSE ---
dr jose wanted amioderone loading dose to be run over 1 hour due to soft bp.
--- NOTE | 2023-08-19 13:33 | PM.PN ---
Subjective Subjective: Hospital course, labs appreciated. On examination patient sitting up in bed, awake and alert, minimally conversant but AOx3. Denies any difficulty in breathing. States his breathing was never an issue. States he came to the hospital because he is not feeling extensively weak. Saturating at 90% on 2 L. Telemetry showing frequent episodes of nonsustained V. tach overnight. No urine output documented. Blood pressures have been soft with mean artery pressure over 65. Vitals/I&O/Wt Last Vital Signs Temp 97.8 F 08/19/23 11:55 Pulse 82 08/19/23 11:55 Resp 27 H 08/19/23 11:55 BP 99/60 08/19/23 11:55 Pulse Ox 90 08/19/23 11:55 O2 Del Method Nasal Cannula 08/19/23 11:55 O2 Flow Rate 3 08/19/23 08:27 Weight last 48 hrs Weight 77.111 kg Weight 80.513 kg Physical Exam Narrative: General exam: AOx3, minimally conversant, chronically sick appearing HEENT: Atraumatic normocephalic. Oropharynx clear. Neck is supple no lymphadenopathy thyromegaly Cardiovascular regular rate rhythm with a 2/6 systolic murmur with frequent premature beats Lungs diminished breath sounds at the bases but clear Abdomen is soft nontender with positive bowel sounds Extremities trace edema bilaterally. No cyanosis or clubbing Skin no rash, some excoriations noted on legs Neuro no obvious focal deficits Data 08/19/23 03:28 08/19/23 03:28 Micro: Microbiology 08/18/23 09:02 Urine Culture - Preliminary Urine,Clean Catch 08/18/23 08:00 Blood Culture - Preliminary Blood NEGATIVE TO DATE 08/18/23 07:58 Blood Culture - Preliminary Blood NEGATIVE TO DATE A&P Assessment and plan (1) Cardiomyopathy: Does have significant history of cardiomyopathy in the past. There is echocardiogram done within the last few years shows discrepancy in EF. EF until last echocardiogram was found to be around 35 to 40% but 1 done on July 27 showed to be 50%. Given the discrepancy and patient's presentation with generalized weakness with questionable congestive heart failure will do a limited echocardiogram to monitor EF. Digoxin level stable. Hold off on digoxin for now. Appreciate pacemaker interrogation and cardiology recommendations. Patient looks euvolemic to slightly dehydrated for now. Strict input output charting, daily weights. Rutherford catheterization. Patient is agreeable. He did have difficulty in Rutherford placement in the ER yesterday. Hold off on torsemide for now. No active chest pain. Continue with home dose of Plavix, Eliquis. Patient's LFT deranged. Patient will be started on amiodarone so for now we will hold statins. Qualifiers: Cardiomyopathy type: other Qualified Code(s): I42.8 - Other cardiomyopathies (2) Nonsustained ventricular tachycardia: Seen on telemetry. Recurrent episode. Patient has blood pressure in the soft so will not be able to give higher dose of metoprolol. Continue with metoprolol 12.5 mg twice daily. Given limited medications even though patient has mild degree of transaminitis for now we will start on IV amiodarone after bolus. Continue to monitor telemetry. Potassium around 4, magnesium around 2. (3) Hypotension: Goal blood pressure less than 140/90 mmHg with mean over 65. Blood pressures have been soft. Cannot rule out cardiogenic shock. Hold off on Imdur. Entresto stopped yesterday. Gentle IV hydration with normal saline at 75 cc/h while monitoring for fluid overload. Strict input output charting. Check cortisol level. If blood pressures remain low will start on low-dose midodrine 10 mg 3 times daily. Repeat lactate levels. Concerns for UTI. Follow-up blood culture, urine culture. Continue with IV ceftriaxone. (4) Acute kidney injury: Creatinine worsening to 1.9. BUN elevated. Most likely in setting of cardiogenic shock in setting of recurrent nonsustained V. tach versus hypotension versus home use of diuretics, Entresto versus chronic outlet obstruction. CT abdomen pelvis done yesterday showed moderate bladder wall thickening with concerns for cystitis versus chronic outlet obstruction. Rutherford catheterization as above. Check urine lites, urine creatinine, urine eosinophils. (5) Weakness: Patient with global weakness, likely multifactorial. He has cardiomyopathy, renal dysfunction, rheumatoid arthritis, advancing age, concern for depression etc. Physical therapy consultation He would likely benefit from rehabilitation (6) Transaminitis: With worsening today. Hepatitis panel, respiratory viral panel negative. Check HIV. Appreciate CT abdomen pelvis. Given thrombocytopenia, acute kidney injury, worsening liver dysfunction pertinent to check tick panel. Sent out. Continue with oral doxycycline 100 mg twice daily. (7) Atrial fibrillation: Rate currently controlled. Continue with home dose of Eliquis. Digoxin level stable. Digoxin can discontinue for now. Amiodarone and metoprolol as above. Qualifiers: Atrial fibrillation type: persistent (not longstanding) Qualified Code(s): I48.19 - Other persistent atrial fibrillation (8) S/p TAVR (transcatheter aortic valve replacement), bioprosthetic: (9) Coronary arteriosclerosis after coronary artery bypass grafting: (10) Hyperglycemia: A1c 6.2. Hypoglycemia protocol. (11) Depression: Continue with new sertraline 25 mg daily (12) Thrombocytopenia: See above, repeat tomorrow (13) Atherosclerosis of coronary artery of [place] heart without angina pectoris: See notations above No active chest pain. Blood pressure soft. Continue with Plavix. Holding off on Imdur and statin for now. Qualifiers: Coronary Disease-Associated Artery/Lesion type: [place] artery Qualified Code(s): I25.10 - Atherosclerotic heart disease of [place] coronary artery without angina pectoris (14) Hypokalemia: Monitor regularly. Repeat BMP in afternoon. (15) Seropositive rheumatoid arthritis of multiple sites: Hold sulfasalazine secondary to renal dysfunction Plan Multiple other medical problems as outlined in past medical history No need to be on both of fubuxostat and allopurinol. Continue febuxostat. Allow natural Eliquis will suffice for DVT prophylaxis Cardiac carb consistent diet Protonix for PUD prophylaxis Discharge plan: Given advanced age, significant deconditioning patient would benefit from placement to SNF. He is agreeable. Await PT and OT evaluation. Attestations Medical Necessity Statement*: Requires further hospitalization for management of recurrent episode of nonsustained V. tach in setting of baseline cardiomyopathy, hypotension with concerns for cardiogenic shock, acute kidney injury as patient requires safe discharge planning Diagnoses Other cardiomyopathy I42.8 Cardiomyopathy type: other Nonsustained ventricular tachycardia I47.29 Hypotension I95.9 Acute kidney injury N17.9 Weakness R53.1 Transaminitis R74.01 Persistent atrial fibrillation I48.19 Atrial fibrillation type: persistent (not longstanding) S/p TAVR (transcatheter aortic valve replacement), bioprosthetic Z95.3 Coronary arteriosclerosis after coronary artery bypass grafting I25.810 Hyperglycemia R73.9 Depression F32.A Thrombocytopenia D69.6 Atherosclerosis of [place] coronary artery of [place] heart without angina pectoris I25.10 Coronary Disease-Associated Artery/Lesion type: [place] artery Hypokalemia E87.6 Seropositive rheumatoid arthritis of multiple sites M05.79
[2023-08-19 14:02] LABS: Eosinophil Urine No Eosinophils Seen; Urine Eosinophil Count 0 (0-0)
[2023-08-19] MEDS: midodrine 5 mg TABLET 10 MG PO ×2 (14:11→20:15)
[2023-08-19] MEDS: cefTRIAXone 1,000 mg SDV 1000 MG IVP (14:11)
[2023-08-19 15:34] LABS: Anion Gap 21.3 (5-19); Blood Urea Nitrogen 69 mg/dL (8-23); Calcium 8.5 mg/dL (8.5-10.5); Carbon Dioxide 21 mmol/L (22-29); Chloride 96 mmol/L (98-107); Creatinine Clr Calc Pharmacy 28.1041; Glucose 203 mg/dL (65-115); Osmolality Calculated 306 mOsm/kg (285-295); Potassium 3.3 mmol/L (3.5-5.1); Sodium 135 mmol/L (136-145)
[2023-08-19] MEDS: doxycycline 100 mg Tablet PO (17:30)
[2023-08-20] VITALS (67 sets, daily range): BP systolic 85–125; BP diastolic 52–77; PULSE 70–89; RESP 10–35; TEMP 36–37.1; O2SAT 94–99
[2023-08-20 04:29] LABS: PROTEIN, TOTAL 6.7 g/dL (6.1-8.1)
[2023-08-20 05:45] LABS: Basophils % 0.3 %; Lymphocytes # 3.8 10^3/uL (0.8-4.8); Lymphocytes % 63.3 %; Mean Corpuscular HGB Conc 30.5 g/dL (30-55); Mean Corpuscular Hemoglobin 30.9 pg (27-33); Mean Corpuscular Volume 101.2 fl (82-101); Mean Platelet Volume 11.5 fL (7.4-10.4); Monocytes # 0.2 10^3/uL (0.2-0.9); Monocytes % 3.5 %; Neutrophils # 1.95 10^3/uL (1.8-7.7); Neutrophils % 32.4 %; Nucleated Red Blood Cells % 0 %; Platelet Count 88 10^3/cmm (157-399); Red Blood Count 4.05 10^6/uL (3.85-5.65); Red Cell Distribution Width 14.6 % (12.1-15.1); White Blood Count 6.03 10^3/uL (3.29-11.43)
[2023-08-20 06:07] LABS: Alanine Aminotransferase 327 U/L (0-41); Alkaline Phosphatase 61 U/L (40-130); Anion Gap 17.5 (5-19); Aspartate Amino Transferase 485 U/L (0-40); Blood Urea Nitrogen 71 mg/dL (8-23); Calcium 8.8 mg/dL (8.5-10.5); Carbon Dioxide 22 mmol/L (22-29); Chloride 100 mmol/L (98-107); Chol HDL Ratio 5.36 mg/dL (1.0-5.00); Cholesterol 59 mg/dL (0-200); Creatinine Clr Calc Pharmacy 29.2176; Globulin 2.7 g/dL (1.3-4.6); Glucose 119 mg/dL (65-115); HDL Cholesterol 11 mg/dL (60-100); LDL Cholesterol Calculated 2 mg/dL (50-129); Magnesium 2.8 mg/dL (1.7-2.3); Osmolality Calculated 304 mOsm/kg (285-295); Potassium 3.5 mmol/L (3.5-5.1); Sodium 136 mmol/L (136-145); Total Bilirubin 0.3 mg/dL (0.15-1.2); Total Protein 5.7 g/dL (6.6-8.7); Triglycerides 230 mg/dL (0-150); VLDL Cholestrol Calculation 46 mg/dL (0-30)
[2023-08-20 06:19] LABS: Folate Level 4.6 ng/mL (4.5-32.2)
[2023-08-20] MEDS: clopidogrel 75 mg Tablet PO (09:18)
[2023-08-20] MEDS: metoprolol tartrate 25 mg Tablet 12.5 MG PO (09:18)
[2023-08-20] MEDS: doxycycline 100 mg Tablet PO ×2 (09:18→16:51)
[2023-08-20] MEDS: apixaban 5 mg Tablet PO (09:18)
[2023-08-20] MEDS: sertraline 50 mg Tablet 25 MG PO (09:18)
[2023-08-20] MEDS: midodrine 5 mg TABLET 10 MG PO ×3 (09:18→21:53)
[2023-08-20] MEDS: pantoprazole DR 40 mg Tablet PO (09:19)
[2023-08-20] MEDS: docusate sodium 100 mg Capsule PO ×2 (09:19→16:52)
[2023-08-20] MEDS: bumetanide 1 mg Tablet PO (13:17)
--- NOTE | 2023-08-20 13:42 | PM.PN ---
Subjective Subjective: No acute events overnight. Seen with caregiver at bedside. Patient states he is feeling better but he still feels as if that is coming soon. He states he feels extremely weak, having generalized bodyaches, not able to sleep at night, feeling extremely weak to even feed himself. He does agree that he feels depressed but denies any suicidal or homicidal ideation. He is okay with the medical treatment going on for him right now. He understands he might need to go to a fdc to get stronger. Vitals/I&O/Wt Last Vital Signs Temp 96.8 F L 08/20/23 11:51 Pulse 80 08/20/23 11:51 Resp 22 H 08/20/23 11:51 BP 95/57 08/20/23 11:51 Pulse Ox 96 08/20/23 11:51 O2 Del Method Nasal Cannula 08/20/23 11:51 O2 Flow Rate 2 08/20/23 08:25 08/19/23 08/20/23 08/20/23 22:59 06:59 14:59 Intake Total 964.008 / 5653.018 7646.75 / 2152.758 250.001 / 250.001 Output Total 550 / 550 800 / 1350 Balance 414.008 / 534.008 268.75 / 802.758 250.001 / 250.001 Weight last 48 hrs Weight 84.368 kg Weight 77.111 kg Weight 80.513 kg Physical Exam Narrative: General exam: AOx3, no acute distress, depressed, chronically sick appearing HEENT: Atraumatic normocephalic. Oropharynx clear. Neck is supple no lymphadenopathy thyromegaly Cardiovascular regular rate rhythm with a 2/6 systolic murmur with frequent premature beats Lungs diminished breath sounds at the bases but clear Abdomen is soft nontender with positive bowel sounds Extremities trace edema bilaterally. No cyanosis or clubbing Skin no rash, some excoriations noted on legs Neuro no obvious focal deficits Urinary Catheter Management: Rutherford: Cath Placed During This Visit: yes Reason for Continuing Indwelling Catheter: Accurate Measurement of Urinary Output in Critically Ill Patients Urinary Catheter Date of Insertion: 08/19/23 Urinary Catheter Time of Insertion: 12:00 Data 08/20/23 05:05 08/20/23 05:05 Micro: Microbiology 08/18/23 09:02 Urine Culture - Final Urine,Clean Catch 08/19/23 12:45 Bacterial Antigens - Final Urine Kidney A&P Assessment and plan (1) Cardiomyopathy: Does have significant history of cardiomyopathy in the past. There is echocardiogram done within the last few years shows discrepancy in EF. EF until last echocardiogram was found to be around 35 to 40% but 1 done on July 27 showed to be 50%. Repeat echocardiogram yesterday shows an EF of 35 to 40% with dilated LA and global LV hypokinesia. Digoxin level stable. Hold off on digoxin for now. Appreciate pacemaker interrogation and cardiology recommendations. Patient euvolemic today. Hold off on further IV fluids. Renal function showing slight worsening with creatinine up to 2.1 and worsening transaminitis. Blood pressure is better but still soft. Strict input output charting, daily weights. Rutherford catheterization. Document urine output of 1350 g 24 hours. Bumex 1 mg oral daily. Fluid restriction to less than 1500 cc. Encouraged patient to maintain his oral hydration. No active chest pain. Continue with home dose of Plavix, Eliquis. Hold statins given transaminitis. Qualifiers: Cardiomyopathy type: other Qualified Code(s): I42.8 - Other cardiomyopathies (2) Nonsustained ventricular tachycardia: Seen on telemetry. No further episodes after starting amiodarone. Recurrent episode. Patient has blood pressure in the soft so will not be able to give higher dose of metoprolol. Continue with metoprolol 12.5 mg twice daily. Continue with amiodarone drip as per protocol. Will switch over to 200 mg twice daily. Continue to monitor telemetry. Potassium around 4, magnesium around 2. (3) Hypotension: Goal blood pressure less than 140/90 mmHg with mean over 65. Blood pressures have been soft. Cannot rule out cardiogenic shock. Continue to hold off on Imdur. Entresto stopped yesterday. Continue with midodrine 10 mg 3 times a day. Cortisol levels appreciated. Repeat lactate level normal. Concerns for UTI. Follow-up blood culture, urine culture. Continue with IV ceftriaxone. (4) Acute kidney injury: Creatinine worsening to 1.9. BUN elevated. Most likely multifactorial in setting of cardiogenic shock in setting of recurrent nonsustained V. tach versus hypotension versus home use of diuretics, Entresto versus chronic outlet obstruction. CT abdomen pelvis done yesterday showed moderate bladder wall thickening with concerns for cystitis versus chronic outlet obstruction. Rutherford catheterization as above. Appreciate urine lites, urine creatinine, urine eosinophils. Diuretics as above today. Repeat BMP in afternoon. (5) Weakness: Patient with global weakness, likely multifactorial. He has cardiomyopathy, renal dysfunction, rheumatoid arthritis, advancing age, concern for depression etc. Physical therapy consultation He would likely benefit from rehabilitation (6) Transaminitis: With worsening today. Likely congestive transaminitis. Bilirubin alkaline phosphatase level normal. Check LDH, GGT. Hepatitis panel, respiratory viral panel negative. Check HIV. Appreciate CT abdomen pelvis. Given thrombocytopenia, acute kidney injury, worsening liver dysfunction pertinent to check tick panel. Sent out. Continue with oral doxycycline 100 mg twice daily. (7) Atrial fibrillation: Rate currently controlled. Continue with home dose of Eliquis. Digoxin level stable. Digoxin can discontinue for now. Amiodarone and metoprolol as above. Switch Eliquis to 2.5 mg twice daily given worsening creatinine now. Qualifiers: Atrial fibrillation type: persistent (not longstanding) Qualified Code(s): I48.19 - Other persistent atrial fibrillation (8) S/p TAVR (transcatheter aortic valve replacement), bioprosthetic: (9) Coronary arteriosclerosis after coronary artery bypass grafting: (10) Hyperglycemia: A1c 6.2. Hypoglycemia protocol. (11) Depression: Continue with new sertraline 25 mg daily (12) Thrombocytopenia: See above, repeat tomorrow (13) Atherosclerosis of coronary artery of [place] heart without angina pectoris: See notations above No active chest pain. Blood pressure soft. Continue with Plavix. Holding off on Imdur and statin for now. Qualifiers: Coronary Disease-Associated Artery/Lesion type: [place] artery Qualified Code(s): I25.10 - Atherosclerotic heart disease of [place] coronary artery without angina pectoris (14) Hypokalemia: Monitor regularly. Repeat BMP in afternoon. (15) Seropositive rheumatoid arthritis of multiple sites: Hold sulfasalazine secondary to renal dysfunction Plan Multiple other medical problems as outlined in past medical history No need to be on both of fubuxostat and allopurinol. Continue febuxostat. CODE STATUS: Discussed in detail with the patient with caregiver at bedside. He wants to remain Allow natural but is okay with medical management. Eliquis will suffice for DVT prophylaxis Cardiac carb consistent diet Protonix for PUD prophylaxis Discharge plan: Given advanced age, significant deconditioning patient would benefit from placement to SNF. He is agreeable. Await PT and OT evaluation. Attestations Medical Necessity Statement*: Requires further hospitalization for management of JAMILA in setting of cardiomyopathy, CHF with concerns for early cardiogenic shock while safe discharge planning is sought Diagnoses Other cardiomyopathy I42.8 Cardiomyopathy type: other Nonsustained ventricular tachycardia I47.29 Hypotension I95.9 Acute kidney injury N17.9 Weakness R53.1 Transaminitis R74.01 Persistent atrial fibrillation I48.19 Atrial fibrillation type: persistent (not longstanding) S/p TAVR (transcatheter aortic valve replacement), bioprosthetic Z95.3 Coronary arteriosclerosis after coronary artery bypass grafting I25.810 Hyperglycemia R73.9 Depression F32.A Thrombocytopenia D69.6 Atherosclerosis of [place] coronary artery of [place] heart without angina pectoris I25.10 Coronary Disease-Associated Artery/Lesion type: [place] artery Hypokalemia E87.6 Seropositive rheumatoid arthritis of multiple sites M05.79
[2023-08-20 14:53] LABS: Gamma Glutamyl Transferase 53 U/L (8-61)
[2023-08-20 15:18] LABS: HIV 1 & 2 Antibody Non-Reactive (Non-Reactiv); HIV 1 & 2 Antigen Non-Reactive (Non-Reactiv)
[2023-08-20 15:30] LABS: Lactate Dehydrogenase 669 U/L (135-225)
[2023-08-20] MEDS: amiodarone 200 mg Tablet PO (16:52)
[2023-08-20] MEDS: norepinephrine 4 MG/250 ML BAG 30 MG IV (16:53)
--- NOTE | 2023-08-20 17:44 | PM.CCNAC ---
Critical Care Event Note Patient having few episodes of nonsustained V. tach today. Continues to have hypotension with systolic going down to 85. Concerns for cardiogenic shock. Continue with amiodarone drip. Monitor LFTs. Appreciate LDH and GGT levels. Start levophed drip for cardiogenic shock. Wean keeping MAP at 65 mmhg. The high probability of a clinically significant, sudden or life threatening deterioration of the patient's [cardiac, renal] system(s) required my full and direct attention, intervention and personal management. The critical care time is as shown. This time is in addition to time spent performing any reported procedures but includes the following: [x] Data and vital sign review and interpretation [x] Patient assessment, examination and intervention [x] Documentation [x] Medication orders and management Critical Care Time Code activated: No Critical Care Time (min): 70 Coding Level of Care Code Critical Care Other Coding Information This patient has a high probability of clinically significant, sudden or life threatening deterioration of the patient's (neurological/pulmonary/cardiac/renal/ID/endocrine) systems required my full, direct attention, the highest level of physician preparedness for urgent intervention and personal management. I managed/supervised life or organ supporting interventions that required frequent physician assessment. I devoted my full attention in the ICU to the direct care of this patient for the period of time indicated above. Time I spent with family or surrogate(s) is included only if the patient was incapable of providing necessary information or participating in decision making. This time includes the following services provided: Telemetry review Hemodynamic interpretation, assessment and management Review and interpretation of CXR Review and interpretation of lab values Review and interpretation of microbiologic data and culture results Review of medications and administration Review and interpretation of Nutrition requirements and management Discussion of management with other consultants and services Clinical update to family members Time Spent (min) 70
[2023-08-20 17:55] LABS: Lactic Sepsis W/Reflex 1.8 mmol/L (0.5-2.2)
[2023-08-20 17:56] LABS: Blood Urea Nitrogen 66 mg/dL (8-23); Calcium 8.5 mg/dL (8.5-10.5); Carbon Dioxide 23 mmol/L (22-29); Chloride 97 mmol/L (98-107); Creatinine Clr Calc Pharmacy 36.0923; Glucose 171 mg/dL (65-115); Osmolality Calculated 299 mOsm/kg (285-295); Sodium 133 mmol/L (136-145)
--- NOTE | 2023-08-20 18:00 | PC.NURSE ---
Report called to JUAN CARLOS Perkins in ICU
--- NOTE | 2023-08-20 18:13 | PC.NURSE ---
Transfer pt via bed to ICU-6. Pt tolerated well.
[2023-08-20 18:22] LABS: Anion Gap 16.4 (5-19); Potassium 3.4 mmol/L (3.5-5.1)
[2023-08-20] MEDS: meropenem 1,000 mg SDV 1000 MG IVP (21:51)
[2023-08-20] MEDS: water for injection-sterile 20 ML (21:52)
[2023-08-20] MEDS: apixaban 5 mg Tablet 2.5 MG PO (21:53)
[2023-08-20] MEDS: vancomycin 1,250 MG/250 ML PIGGYBACK 250 MG IV (22:06)
[2023-08-21] VITALS (52 sets, daily range): BP systolic 82–133; BP diastolic 51–84; PULSE 70–89; RESP 0–40; TEMP 36.1–36.6; O2SAT 92–99; BMI 26.2
--- NOTE | 2023-08-21 02:15 | PC.NURSE ---
pt complaining of sore throat. New orders for Cepacol lozenges PRN per Dr. Stovall.
[2023-08-21] MEDS: cetylpyridinium Lozenge 1 EACH MUCOUS MEM ×3 (02:35→06:50)
[2023-08-21] MEDS: meropenem 1,000 mg SDV 1000 MG IVP ×2 (06:50→17:59)
[2023-08-21] MEDS: water for injection-sterile 20 ML (06:51)
--- NOTE | 2023-08-21 08:25 | PC.NURSE ---
Pt BP's noted to be soft with most recent 86/52. Turned levophed drip back on at initial dose rate per protocol. Pt to be receiving midodrine po with morning meds; however, pt is currently c/o sore throat and issues swallowing. Will get with the hospitalist to see if a MUSIC MINISTER eval is needed.
[2023-08-21] MEDS: midodrine 5 mg TABLET 10 MG PO ×3 (09:16→20:23)
[2023-08-21] MEDS: docusate sodium 100 mg Capsule PO ×2 (09:17→17:59)
[2023-08-21] MEDS: pantoprazole DR 40 mg Tablet PO (09:17)
[2023-08-21] MEDS: sertraline 50 mg Tablet 25 MG PO (09:17)
[2023-08-21] MEDS: doxycycline 100 mg Tablet PO ×2 (09:17→17:59)
[2023-08-21] MEDS: clopidogrel 75 mg Tablet PO (09:17)
[2023-08-21] MEDS: bumetanide 1 mg Tablet PO (09:18)
[2023-08-21] MEDS: apixaban 5 mg Tablet 2.5 MG PO ×2 (09:18→20:23)
[2023-08-21] MEDS: amiodarone 200 mg Tablet PO ×2 (09:18→17:59)
--- NOTE | 2023-08-21 10:17 | PC.SOCIAL ---
IMM Update pg 2 of IMM updated and reviewed w/ patient. Copy provided and copy dated, initialed and placed in chart.
[2023-08-21] MEDS: potassium chloride ER 20 mEq Tablet PO (10:26)
[2023-08-21 14:00] LABS: Lyme AB Screen <0.90 index
[2023-08-21 14:01] LABS: Basophils # 0.1 10^3/uL (0.0-0.1); Basophils % 0.5 %; Eosinophils % 0.1 %; Hematocrit 40.5 % (37-53); Lymphocytes # 7.5 10^3/uL (0.8-4.8); Lymphocytes % 64.3 %; Mean Corpuscular HGB Conc 33.8 g/dL (30-55); Mean Corpuscular Hemoglobin 30.9 pg (27-33); Mean Corpuscular Volume 91.4 fl (82-101); Mean Platelet Volume 11.8 fL (7.4-10.4); Monocytes # 0.6 10^3/uL (0.2-0.9); Monocytes % 4.7 %; Neutrophils # 3.52 10^3/uL (1.8-7.7); Neutrophils % 30.1 %; Nucleated Red Blood Cells % 0 %; Platelet Count 123 10^3/cmm (157-399); Red Blood Count 4.43 10^6/uL (3.85-5.65); White Blood Count 11.67 10^3/uL (3.29-11.43)
[2023-08-21 14:14] LABS: Alanine Aminotransferase 307 U/L (0-41); Albumin Level 3.3 g/dL (3.5-5.2); Alkaline Phosphatase 76 U/L (40-130); Anion Gap 19.4 (5-19); Aspartate Amino Transferase 288 U/L (0-40); Blood Urea Nitrogen 59 mg/dL (8-23); Calcium 9.1 mg/dL (8.5-10.5); Carbon Dioxide 21 mmol/L (22-29); Chloride 93 mmol/L (98-107); Creatinine Clr Calc Pharmacy 35.3358; Globulin 2.9 g/dL (1.3-4.6); Glucose 263 mg/dL (65-115); Osmolality Calculated 296 mOsm/kg (285-295); Potassium 3.4 mmol/L (3.5-5.1); Sodium 130 mmol/L (136-145); Total Bilirubin 0.5 mg/dL (0.15-1.2); Total Protein 6.2 g/dL (6.6-8.7)
[2023-08-21] MEDS: norepinephrine 4 MG/250 ML BAG 15 MG IV (14:27)
[2023-08-21 14:30] LABS: Magnesium 2.5 mg/dL (1.7-2.3)
[2023-08-21 14:35] LABS: Slide Review Slide Review Perform
[2023-08-21 17:03] LABS: ABNORMAL PROTEIN BAND 1 0.7 g/dL (NONE DETECTED); ABNORMAL PROTEIN BAND 2 0.1 g/dL (NONE DETECTED); ALBUMIN 3.4 g/dL (3.8-4.8); ALPHA 1 GLOBULIN 0.4 g/dL (0.2-0.3); ALPHA 2 GLOBULIN 0.8 g/dL (0.5-0.9); BETA 1 GLOBULIN 0.4 g/dL (0.4-0.6); BETA 2 GLOBULIN 0.4 g/dL (0.2-0.5); GAMMA GLOBULIN 1.3 g/dL (0.8-1.7)
[2023-08-21] MEDS: water for injection-sterile 20 ML 60 ML (18:00)
--- NOTE | 2023-08-21 20:44 | PM.PN ---
Subjective Subjective: He has been feeling very tired, slow/sluggish. Easily fatigable. But states he had requested to get up to the chair as he is not used to spending any prolonged time in bed and is unable to do that. Vitals/I&O/Wt Last Vital Signs Temp 97.8 F 08/21/23 19:58 Pulse 82 08/21/23 19:00 Resp 19 H 08/21/23 19:00 BP 102/65 08/21/23 19:00 Pulse Ox 99 08/21/23 19:00 O2 Del Method Nasal Cannula 08/21/23 08:27 O2 Flow Rate 2 08/21/23 08:27 08/21/23 08/21/23 08/21/23 06:59 14:59 22:59 Intake Total 270 / 942.379 492.375 / 492.375 280 / 772.375 Output Total 450 / 1600 1000 / 1000 Balance -180 / -657.621 492.375 / 492.375 -720 / -227.625 Weight last 48 hrs Weight 80.377 kg Weight 84.368 kg Physical Exam Narrative: Sitting up in a chair per patient request. Const: COMMON NORMALS: patient oriented x3 and alert GENERAL APPEARANCE: cooperative and frail appearing ORIENTATION/CONSCIOUSNESS: Yes awake OTHER: Pale HENMT: COMMON NORMALS: oropharynx normal Neck/C-Spine: COMMON NORMALS: no JVD Resp: COMMON NORMALS: normal respiratory effort and clear to auscultation bilaterally AUSCULTATION: clear to auscultation bilaterally Cardio: COMMON NORMALS: no JVD, regular rhythm, S1 normal heart sound present, S2 normal heart sound present and No murmurs present (Cardio) RHYTHM: regular rhythm HEART SOUNDS: S1 normal heart sound present and S2 normal heart sound present GI: COMMON NORMALS: Normal to inspection, nondistended, normoactive bowel sounds present, Soft to palpation and non-tender PALPATION: Yes Soft to palpation Extremity: COMMON NORMALS: no joint enlargement and no pedal edema Neuro: COMMON NORMALS: patient oriented x3 and moves all extremities SENSORIUM/ORIENTATION: Yes alert Skin: COMMON NORMALS: no rashes or lesions noted GENERAL SKIN EXAM: no rashes or lesions noted OTHER: Cool extremities. Mild mottling lower extremities. No cyanosis. Urinary Catheter Management: R[place]ford: Cath Placed During This Visit: yes Reason for Continuing Indwelling Catheter: Accurate Measurement of Urinary Output in Critically Ill Patients Urinary Catheter Date of Insertion: 08/19/23 Urinary Catheter Time of Insertion: 12:00 Data 08/21/23 13:04 08/21/23 13:04 A&P Assessment and plan (1) Cardiomyopathy: Possible low output heart failure, cardiogenic shock, had to go back on Levophed today. Discussed with dish machine operator we will reassess him again. Consideration of further cardiac diagnostic measures, continued support, pending additional recommendations. With multiorgan injury, JAMILA, transaminitis, mild encephalopathy. Continue Levophed, wean off as tolerating. Renal function with some improvement creatinine down to 1.7. Transaminitis with improvement. On midodrine. Reviewed vitals, CBC, CMP, magnesium. Noted antibiotics were broadened to meropenem and vancomycin. Continue. Monitor for risk of seizure with meropenem. Does have significant history of cardiomyopathy in the past. There is echocardiogram done within the last few years shows discrepancy in EF. EF until last echocardiogram was found to be around 35 to 40% but 1 done on July 27 showed to be 50%. Repeat echocardiogram yesterday shows an EF of 35 to 40% with dilated LA and global LV hypokinesia. Digoxin level stable. Hold off on digoxin for now. pacemaker interrogated Strict input output charting, daily weights. Rutherford catheterization. Document urine output of 1350 g 24 hours. Bumex 1 mg oral daily. Fluid restriction to less than 1500 cc. Encouraged patient to maintain his oral hydration. No active chest pain. Continue with home dose of Plavix, Eliquis. Hold statins given transaminitis. Qualifiers: Cardiomyopathy type: other Qualified Code(s): I42.8 - Other cardiomyopathies (2) Nonsustained ventricular tachycardia: Reviewed potassium, magnesium. Supplement potassium. Repeat chemistry, magnesium. Seen on telemetry. No further episodes after starting amiodarone. Recurrent episode. Blood pressure in the soft so will not be able to give higher dose of metoprolol. Off metoprolol 12.5 mg twice daily. Continue with amiodarone drip as per protocol. Will switch over to 200 mg twice daily. Continue to monitor telemetry. Potassium around 4, magnesium around 2. (3) Hypotension: Resumed on pressor. Wean down as tolerating. On midodrine 10 mg 3 times daily. Goal blood pressure less than 140/90 mmHg with mean over 65. Blood pressures have been soft. Cannot rule out cardiogenic shock. Continue to hold off on Imdur. Entresto stopped yesterday. Continue with midodrine 10 mg 3 times a day. Cortisol levels performed. Appropriate. Repeat lactate level normal. Concerns for UTI. Follow-up blood culture, urine culture. Continue with IV antibiotics. Antibiotics were broadened to meropenem and vancomycin. Continue. (4) Acute kidney injury: Slight improvement, creatinine to 1.7. Reassess Most likely multifactorial in setting of cardiogenic shock in setting of recurrent nonsustained V. tach versus hypotension versus home use of diuretics, Entresto versus chronic outlet obstruction. CT abdomen pelvis done yesterday showed moderate bladder wall thickening with concerns for cystitis versus chronic outlet obstruction. Rutherford catheterization as above. Appreciate urine lites, urine creatinine, urine eosinophils. Diuretics as above today. Repeat BMP in afternoon. (5) Weakness: Patient with global weakness, likely multifactorial. He has cardiomyopathy, renal dysfunction, rheumatoid arthritis, advancing age, concern for depression etc. Physical therapy consultation He would likely benefit from rehabilitation (6) Transaminitis: With mild improvement today. Requiring pressor support. Likely congestive transaminitis. Bilirubin alkaline phosphatase level normal. Hepatitis panel, respiratory viral panel negative. Check HIV. Appreciate CT abdomen pelvis. Given thrombocytopenia, acute kidney injury, worsening liver dysfunction pertinent to check tick panel. Sent out. Continue with oral doxycycline 100 mg twice daily. (7) Atrial fibrillation: Rate currently controlled. Continue with home dose of Eliquis. Digoxin level stable. Digoxin can discontinue for now. Amiodarone and metoprolol as above. Switch Eliquis to 2.5 mg twice daily given worsening creatinine now. Qualifiers: Atrial fibrillation type: persistent (not longstanding) Qualified Code(s): I48.19 - Other persistent atrial fibrillation (8) S/p TAVR (transcatheter aortic valve replacement), bioprosthetic: (9) Coronary arteriosclerosis after coronary artery bypass grafting: (10) Hyperglycemia: A1c 6.2. Hypoglycemia protocol. (11) Depression: Continue with new sertraline 25 mg daily (12) Thrombocytopenia: See above, repeat tomorrow (13) Atherosclerosis of coronary artery of [place] heart without angina pectoris: See notations above No active chest pain. Blood pressure soft. Continue with Plavix. Holding off on Imdur and statin for now. Qualifiers: Coronary Disease-Associated Artery/Lesion type: [place] artery Qualified Code(s): I25.10 - Atherosclerotic heart disease of [place] coronary artery without angina pectoris (14) Hypokalemia: Monitor regularly. Repeat BMP in afternoon. (15) Seropositive rheumatoid arthritis of multiple sites: Hold sulfasalazine secondary to renal dysfunction Plan Multiple other medical problems as outlined in past medical history No need to be on both of fubuxostat and allopurinol. Continue febuxostat. CODE STATUS: Discussed in detail with the patient with caregiver at bedside. He wants to remain Allow natural but is okay with medical management. Eliquis will suffice for DVT prophylaxis Cardiac carb consistent diet Protonix for PUD prophylaxis Discharge plan: Given advanced age, significant deconditioning patient would benefit from placement to SNF. He is agreeable. Await PT and OT evaluation. Discussed with complex case manager. Attestations Medical Necessity Statement*: Continue admission for assessment of management of low output congestive heart failure, cardiogenic shock, multiorgan injury including JAMILA, transaminitis, encephalopathy. Coding Level of Care Code Critical Care >/= 30 minutes Critical care time (in minutes): 45 The high probability of a clinically significant, sudden or life threatening deterioration, as referenced in this documentation, required my full and direct attention, intervention and personal management. The critical care time shown is in addition to time spent performing any reported separately billable procedures and includes the following: [x] Data and vital sign review and interpretation [x] Patient assessment, examination and intervention [x] Medication orders and management [x] Patient/Family updates as able [x] Care Coordination and Documentation. Diagnoses Other cardiomyopathy I42.8 Cardiomyopathy type: other Nonsustained ventricular tachycardia I47.29 Hypotension I95.9 Acute kidney injury N17.9 Weakness R53.1 Transaminitis R74.01 Persistent atrial fibrillation I48.19 Atrial fibrillation type: persistent (not longstanding) S/p TAVR (transcatheter aortic valve replacement), bioprosthetic Z95.3 Coronary arteriosclerosis after coronary artery bypass grafting I25.810 Hyperglycemia R73.9 Depression F32.A Thrombocytopenia D69.6 Atherosclerosis of [place] coronary artery of [place] heart without angina pectoris I25.10 Coronary Disease-Associated Artery/Lesion type: [place] artery Hypokalemia E87.6 Seropositive rheumatoid arthritis of multiple sites M05.79
--- NOTE | 2023-08-21 21:14 | P.PN_ITS ---
Subjective 2 Subjective: Patient is admitted to hospital with complaints of generalized weakness tiredness, difficulty in ambulation, difficulty in swallowing and some features of confusion. He was found to have episodes of hypotension. Currently the blood pressure is in the normal range. He continues to have a generalized weakness. He is remaining afebrile. Medications: Medication Review Details: Current Medications Acetaminophen (Acetaminophen 325 Mg Tablet) 650 mg PO Q6H PRN PRN Reason: Mild/Mod Pain Or Temp >/= 101 Hydrocodone Bitart/Acetaminophen (Hydrocodone-Acetaminophen 5-325 Mg Tablet) 1 tab PO BID PRN PRN Reason: Pain Amiodarone HCl (Amiodarone 200 Mg Tablet) 200 mg PO BID COUNT INCLUDES THE [facility] Last Admin: 08/21/23 17:59 Dose: 200 mg Apixaban (Apixaban 5 Mg Tablet) 2.5 mg PO BID@0900,2100 COUNT INCLUDES THE [facility] Last Admin: 08/21/23 20:23 Dose: 2.5 mg Atorvastatin Calcium (Atorvastatin 40 Mg Tablet) 40 mg PO BEDTIME SLIME Last Admin: 08/18/23 20:46 Dose: 40 mg Benzocaine (Cetylpyridinium Lozenge) 1 each MUCOUS MEM Q2H PRN PRN Reason: SORE THROAT Last Admin: 08/21/23 06:50 Dose: 1 each Bumetanide (Bumetanide 1 Mg Tablet) 1 mg PO DAILY SLIME Last Admin: 08/21/23 09:18 Dose: 1 mg Clopidogrel Bisulfate (Clopidogrel 75 Mg Tablet) 75 mg PO DAILY SLIME Last Admin: 08/21/23 09:17 Dose: 75 mg Docusate Sodium (Docusate Sodium 100 Mg Capsule) 100 mg PO BID SLIME Last Admin: 08/21/23 17:59 Dose: 100 mg Doxycycline Monohydrate (Doxycycline 100 Mg Tablet) 100 mg PO BID COUNT INCLUDES THE [facility]; Protocol Last Admin: 08/21/23 17:59 Dose: 100 mg Amiodarone HCl/Dextrose (Nexterone) 360 mg in 200 mls @ 0 mls/hr IV .Q0M SLIME; Protocol Last Titration: 08/20/23 16:47 Dose: Infused Norepinephrine Bitartrate (Levophed) 4 mg in 250 mls @ 0 mls/hr IV .Q0M SLIME; Protocol Last Admin: 08/21/23 14:27 Dose: 4 mcg/min, 15 mls/hr Vancomycin/PEG/NADA/Lysine/Water (Vancocin) 1,250 mg in 250 mls @ 250 mls/hr IV Q48H COUNT INCLUDES THE [facility] Last Infusion: 08/21/23 01:19 Dose: Infused Isosorbide Mononitrate (Isosorbide Mononitrate Er 30 Mg Tablet) 30 mg PO DAILY COUNT INCLUDES THE [facility] Meropenem (Meropenem 1,000 Mg Sdv) 1,000 mg IVP Q12H COUNT INCLUDES THE [facility]; Protocol Last Admin: 08/21/23 17:59 Dose: 1,000 mg Midodrine (Midodrine 5 Mg Tablet) 10 mg PO TID SLIME Last Admin: 08/21/23 20:23 Dose: 10 mg Non-Formulary Medication (Febuxostat) 80 mg PO DAILY COUNT INCLUDES THE [facility] Last Admin: 08/21/23 09:18 Dose: Not Given Ondansetron HCl (Ondansetron 2 Mg/Ml Sdv 2 Ml) 4 mg IVP Q6H PRN PRN Reason: vomiting, or N/V if npo Pantoprazole Sodium (Pantoprazole Dr 40 Mg Tablet) 40 mg PO DAILY COUNT INCLUDES THE [facility] Last Admin: 08/21/23 09:17 Dose: 40 mg Sertraline HCl (Sertraline 50 Mg Tablet) 25 mg PO DAILY COUNT INCLUDES THE [facility] Last Admin: 08/21/23 09:17 Dose: 25 mg Trazodone HCl (Trazodone 50 Mg Tablet) 50 mg PO BEDTIME PRN PRN Reason: INSOMNIA Vitals/I&O/Wt Last Vital Signs Temp 97.8 F 08/21/23 19:58 Pulse 82 08/21/23 19:00 Resp 19 H 08/21/23 19:00 BP 102/65 08/21/23 19:00 Pulse Ox 99 08/21/23 19:00 O2 Del Method Nasal Cannula 08/21/23 08:27 O2 Flow Rate 2 08/21/23 08:27 08/21/23 08/21/23 08/21/23 06:59 14:59 22:59 Intake Total 270 / 942.379 492.375 / 492.375 280 / 772.375 Output Total 450 / 1600 1000 / 1000 Balance -180 / -657.621 492.375 / 492.375 -720 / -227.625 Weight last 48 hrs Weight 177 lb 3.2 oz Weight 186 lb Physical Exam 2 Narrative: GENERAL: The patient is alert and oriented times three. Not in any acute distress. Chronically ill looking HEENT: No significant pallor, icterus or lymphadenopathy.Oral cavity: There are no mucous membrane lesions. NECK: Trachea appears to be central. No masses noted. No JVD or thyromegaly appreciated. RESPIRATORY: Chest is symmetrical. No intercostals muscle retraction or any accessory muscle activation. There is no chest wall tenderness. Breath sounds are heard bilaterally. No rales or rhonchi heard. No evidence of any consolidation. BREASTS: Deferred. HEART: The heart sounds are normal. No S3 or S4. Short systolic murmur at the base of the heart. No diastolic murmurs. No pericardial rub ABDOMEN: No vessel pulsations or distention. No tenderness. No organomegaly appreciated. Bowel sounds are normally heard. : Deferred. RECTAL: Deferred. LYMPHATIC: No lymphadenopathy noted in the neck. EXTREMITIES: No edema or cyanosis. No clubbing. MUSCULOSKELETAL: No acute joint deformities or swelling SKIN: There are no significant rashes or ecchymosis NEUROPSYCHIATRIC: The patient is alert and oriented x3. No focal motor deficits. Has some generalized tardiness. Urinary Catheter Management: Rutherford: Cath Placed During This Visit: yes Reason for Continuing Indwelling Catheter: Accurate Measurement of Urinary Output in Critically Ill Patients Urinary Catheter Date of Insertion: 08/19/23 Urinary Catheter Time of Insertion: 12:00 Data 08/21/23 13:04 08/21/23 13:04 A&P Assessment and plan (1) Generalized weakness: Etiology is unclear. In view of the markedly elevated CRP and inflammatory process should be a consideration. (2) Hypotension: Currently he is normotensive. His LV function is stable with ejection fraction of 40%. He has no evidence of any acute myocardial injury. Qualifiers: Hypotension type: unspecified hypotension type Qualified Code(s): I95.9 - Hypotension, unspecified (3) Elevated troponin: Most likely type II SC Because of the 100% V pacing, EKG is not helpful. There is no drop in the LV ejection fraction. Atrial fibrillation/ventricular arrhythmia are contributing factors for the troponin elevation. (4) Pacemaker: Pacemaker function was found to be appropriate. (5) Cardiomyopathy: LV ejection fraction 40% by echocardiogram. No clinical evidence of any heart failure. Qualifiers: Cardiomyopathy type: other Qualified Code(s): I42.8 - Other cardiomyopathies (6) Atrial fibrillation: Qualifiers: Atrial fibrillation type: persistent (not longstanding) Qualified Code(s): I48.19 - Other persistent atrial fibrillation (7) S/p TAVR (transcatheter aortic valve replacement), bioprosthetic: Valve function seems to be appropriate. (8) Coronary arteriosclerosis after coronary artery bypass grafting: Patient has no chest pain or any specific ischemic symptoms. (9) Acute kidney injury superimposed on chronic kidney disease: Patient may have an element of dehydration. Plan Other problems are Difficulty in ambulation Difficulty in swallowing Intermittent confusion Hypokalemia Hyponatremia Leukocytosis Most likely the patient's symptoms are noncardiac. Polymyalgia rheumatica, myasthenia gravis other neurological disorders need to be looked into. Will be discussing with Dr. Jacobo May continue on the current treatment for the time being Attestations 2 Medical Necessity Statement*: Patient requires continued hospital stay for close monitoring and further management Coding Level of Care Code 18850 Diagnoses Generalized weakness R53.1 Hypotension, unspecified hypotension type I95.9 Hypotension type: unspecified hypotension type Elevated troponin R79.89 Pacemaker Z95.0 Other cardiomyopathy I42.8 Cardiomyopathy type: other Persistent atrial fibrillation I48.19 Atrial fibrillation type: persistent (not longstanding) S/p TAVR (transcatheter aortic valve replacement), bioprosthetic Z95.3 Coronary arteriosclerosis after coronary artery bypass grafting I25.810 Acute kidney injury superimposed on chronic kidney disease N17.9; N18.9
--- NOTE | 2023-08-21 22:18 | PC.NURSE ---
Levophed was running at 2 mcg/min at 1900 shift change. Turned off at 2100. Updated in APR.
[2023-08-22] VITALS (52 sets, daily range): BP systolic 80–116; BP diastolic 45–80; PULSE 63–87; RESP 10–37; TEMP 35.9–36.8; O2SAT 91–100; BMI 26.5
--- NOTE | 2023-08-22 02:44 | PC.NURSE ---
Addendum entered by Jeanne Jeff RN 08/22/23 04:30: 7.[address] Stovall okayed 15 mg. Original Note: Pt unable to sleep, asked if he could get something to help. New orders per Dr. Stovall for 7.5 mg Restoril PO once.
[2023-08-22] MEDS: temazepam 15 mg Capsule PO (03:37)
[2023-08-22 04:00] LABS: Basophils % 0.4 %; Eosinophils % 0.1 %; Hematocrit 36.9 % (37-53); Lymphocytes # 5.4 10^3/uL (0.8-4.8); Lymphocytes % 65.8 %; Mean Corpuscular HGB Conc 33.3 g/dL (30-55); Mean Corpuscular Hemoglobin 30.7 pg (27-33); Mean Platelet Volume 10.9 fL (7.4-10.4); Monocytes # 0.5 10^3/uL (0.2-0.9); Monocytes % 5.5 %; Neutrophils # 2.31 10^3/uL (1.8-7.7); Nucleated Red Blood Cells % 0 %; Platelet Count 121 10^3/cmm (157-399); Red Blood Count 4.01 10^6/uL (3.85-5.65); Red Cell Distribution Width 13.8 % (12.1-15.1); White Blood Count 8.24 10^3/uL (3.29-11.43)
[2023-08-22 04:13] LABS: Alanine Aminotransferase 238 U/L (0-41); Albumin Level 3.1 g/dL (3.5-5.2); Alkaline Phosphatase 68 U/L (40-130); Anion Gap 16.3 (5-19); Aspartate Amino Transferase 171 U/L (0-40); Blood Urea Nitrogen 52 mg/dL (8-23); Calcium 8.9 mg/dL (8.5-10.5); Carbon Dioxide 25 mmol/L (22-29); Chloride 98 mmol/L (98-107); Creatinine Clr Calc Pharmacy 42.9078; Globulin 2.6 g/dL (1.3-4.6); Glucose 128 mg/dL (65-115); Osmolality Calculated 298 mOsm/kg (285-295); Potassium 3.3 mmol/L (3.5-5.1); Sodium 136 mmol/L (136-145); Total Bilirubin 0.4 mg/dL (0.15-1.2); Total Protein 5.7 g/dL (6.6-8.7)
[2023-08-22 04:23] LABS: Magnesium 2.5 mg/dL (1.7-2.3)
[2023-08-22 04:50] LABS: Slide Review Slide Review Perform
[2023-08-22] MEDS: meropenem 1,000 mg SDV 1000 MG IVP ×2 (06:30→19:50)
[2023-08-22] MEDS: water for injection-sterile 20 ML 100 ML (06:44)
[2023-08-22] MEDS: doxycycline 100 mg Tablet PO ×2 (08:48→17:20)
[2023-08-22] MEDS: midodrine 5 mg TABLET 10 MG PO ×3 (08:48→21:07)
[2023-08-22] MEDS: pantoprazole DR 40 mg Tablet PO (08:49)
[2023-08-22] MEDS: bumetanide 1 mg Tablet PO (08:49)
[2023-08-22] MEDS: sertraline 50 mg Tablet 25 MG PO (08:49)
[2023-08-22] MEDS: potassium chloride ER 20 mEq Tablet PO (08:49)
[2023-08-22] MEDS: apixaban 5 mg Tablet 2.5 MG PO ×2 (08:49→21:07)
[2023-08-22] MEDS: clopidogrel 75 mg Tablet PO (08:49)
[2023-08-22] MEDS: docusate sodium 100 mg Capsule PO ×2 (08:49→17:20)
[2023-08-22] MEDS: amiodarone 200 mg Tablet PO ×2 (08:49→17:20)
[2023-08-22] MEDS: vancomycin 1,250 MG/250 ML PIGGYBACK 250 MG IV (13:21)
--- NOTE | 2023-08-22 18:41 | PC.OT ---
Patient is refusing to participate in therapy. States that he is going to eat dinner and also reports that he is hurting a lot.
--- NOTE | 2023-08-22 20:10 | P.PN_ITS ---
Subjective 2 Subjective: He states he is feeling slightly better. His blood pressure has improved. He will try to work with physical therapy, although states that sometimes he does not feel ready. His chest pain. Breathing is okay. Vitals/I&O/Wt Last Vital Signs Temp 97.4 F L 08/22/23 16:00 Pulse 83 08/22/23 18:00 Resp 30 H 08/22/23 18:00 BP 102/66 08/22/23 18:00 Pulse Ox 98 08/22/23 18:00 O2 Del Method Room Air 08/22/23 10:16 O2 Flow Rate 2 08/22/23 09:00 08/22/23 08/22/23 08/22/23 06:59 14:59 22:59 Intake Total 750 / 750 Output Total 450 / 1450 1100 / 1100 Balance -450 / -564.375 750 / 750 -1100 / -350 Weight last 48 hrs Weight 81.465 kg Weight 80.377 kg Physical Exam 2 Narrative: Visited by his friend. Sitting up in chair. Const: COMMON NORMALS: patient oriented x3 and alert GENERAL APPEARANCE: c ooperative and frail appearing ORIENTATION/CONSCIOUSNESS: Yes awake OTHER: Pale HENMT: COMMON NORMALS: oropharynx normal Neck/C-Spine: COMMON NORMALS: no JVD Resp: COMMON NORMALS: normal respiratory effort and clear to auscultation bilaterally AUSCULTATION: clear to auscultation bilaterally Cardio: COMMON NORMALS: no JVD, regular rhythm, S1 normal heart sound present, S2 normal heart sound present and No murmurs present (Cardio) RHYTHM: regular rhythm HEART SOUNDS: S1 normal heart sound present and S2 normal heart sound present GI: COMMON NORMALS: Normal to inspection, nondistended, normoactive bowel sounds present, Soft to palpation and non-tender PALPATION: Yes Soft to palpation Extremity: COMMON NORMALS: no joint enlargement and no pedal edema Neuro: COMMON NORMALS: patient oriented x3 and moves all extremities S ENSORIUM/ORIENTATION: Yes alert Skin: COMMON NORMALS: no rashes or lesions noted GENERAL SKIN EXAM: no rashes or lesions noted Urinary Catheter Management: [place]: Cath Placed During This Visit: yes Reason for Continuing Indwelling Catheter: Accurate Measurement of Urinary Output in Critically Ill Patients Urinary Catheter Date of Insertion: 08/19/23 Urinary Catheter Time of Insertion: 12:00 Data 08/22/23 02:50 08/22/23 02:50 A&P Assessment and plan (1) Hypotension: Shock with gradual improvement. Weaned off pressor. Blood pressure soft but maintaining even while sitting up. Transferred out of ICU. Reviewed vitals, CBC, BMP, magnesium, cardiology note, discussed with wet room worker. As per discussion with cardiology contribution of cardiomyopathy to his overall condition is thought to be more minor. Not likely respond for shock, generalized weakness. Asked with patient and his friend, consideration of possible component of septic shock which is improving, question of component of hypovolemia? Hold Bumex. Continue midodrine. Reassess blood pressures. Resumed on pressor. Wean down as tolerating. On midodrine 10 mg 3 times daily. Goal blood pressure less than 140/90 mmHg with mean over 65. Blood pressures have been soft. Cannot rule out cardiogenic shock. Continue to hold off on Imdur. Entresto stopped yesterday. Continue with midodrine 10 mg 3 times a day. Cortisol levels performed. Appropriate. Repeat lactate level normal. Concerns for UTI. Reviewed urine culture, negative. Follow-up blood culture, urine culture. Continue with IV antibiotics. Antibiotics were broadened to meropenem and vancomycin. Continue. Qualifiers: Hypotension type: unspecified hypotension type Qualified Code(s): I95.9 - Hypotension, unspecified (2) Weakness: Generalized weakness, consideration of low output failure, but this appears to be less likely etiology per discussion with cardiology. Additionally with findings of elevated ESR, raising question of inflammatory condition, possibly PMR. Muscle enzyme not elevated. No stigmata of dermatomyositis. Trial of prednisone given persistent symptoms, ESR elevation, without symptoms of ongoing sepsis/infection. Monitor for risk of hyperglycemia, worsening BUN elevation. He will benefit from follow-up with neurology, EMG, possibly muscle biopsy. Additional considerations ICU myopathy, although symptoms have been preceding hospitalization. Other consideration may be given to statin induced myopathy, hold statin. Patient with global weakness, likely multifactorial. He has cardiomyopathy, renal dysfunction, rheumatoid arthritis, advancing age, concern for depression etc. Physical therapy consultation He would likely benefit from rehabilitation (3) Cardiomyopathy: Possible low output heart failure, cardiogenic shock, had to go back on Levophed today. Discussed with wet room worker we will reassess him again. Consideration of further cardiac diagnostic measures, continued support, pending additional recommendations. With multiorgan injury, JAMILA, transaminitis, mild encephalopathy. Continue Levophed, wean off as tolerating. Renal function with some improvement creatinine down to 1.7. Transaminitis with improvement. On midodrine. Reviewed vitals, CBC, CMP, magnesium. Noted antibiotics were broadened to meropenem and vancomycin. Continue. Monitor for risk of seizure with meropenem. Does have significant history of cardiomyopathy in the past. There is echocardiogram done within the last few years shows discrepancy in EF. EF until last echocardiogram was found to be around 35 to 40% but 1 done on July 27 showed to be 50%. Repeat echocardiogram yesterday shows an EF of 35 to 40% with dilated LA and global LV hypokinesia. Digoxin level stable. Hold off on digoxin for now. pacemaker interrogated Strict input output charting, daily weights. Rutherford catheterization. Document urine output of 1350 g 24 hours. Bumex 1 mg oral daily. Fluid restriction to less than 1500 cc. Encouraged patient to maintain his oral hydration. No active chest pain. Continue with home dose of Plavix, Eliquis. Hold statins given transaminitis. Qualifiers: Cardiomyopathy type: other Qualified Code(s): I42.8 - Other cardiomyopathies (4) Nonsustained ventricular tachycardia: Reviewed potassium, magnesium. Supplement potassium. Repeat chemistry, magnesium. Seen on telemetry. No further episodes after starting amiodarone. Recurrent episode. Blood pressure in the soft so will not be able to give higher dose of metoprolol. Off metoprolol 12.5 mg twice daily. Continue with amiodarone drip as per protocol. Will switch over to 200 mg twice daily. Continue to monitor telemetry. Potassium around 4, magnesium around 2. (5) Acute kidney injury: Reviewed BUN, creatinine, potassium, kidney function with some improvement. Creatinine down to 1.4. Mild hypokalemia, requesting replacement. Most likely multifactorial in setting of cardiogenic shock in setting of recurrent nonsustained V. tach versus hypotension versus home use of diuretics, Entresto versus chronic outlet obstruction. CT abdomen pelvis done yesterday showed moderate bladder wall thickening with concerns for cystitis versus chronic outlet obstruction. Rutherford catheterization as above. Appreciate urine lites, urine creatinine, urine eosinophils. Diuretics as above today. Repeat BMP in afternoon. (6) Transaminitis: With mild improvement today. Requiring pressor support. Likely congestive transaminitis. Bilirubin alkaline phosphatase level normal. Hepatitis panel, respiratory viral panel negative. Check HIV. Appreciate CT abdomen pelvis. Given thrombocytopenia, acute kidney injury, worsening liver dysfunction pertinent to check tick panel. Sent out. Continue with oral doxycycline 100 mg twice daily. (7) Atrial fibrillation: Rate currently controlled. Continue with home dose of Eliquis. Digoxin level stable. Digoxin can discontinue for now. Amiodarone and metoprolol as above. Switch Eliquis to 2.5 mg twice daily given worsening creatinine now. Qualifiers: Atrial fibrillation type: persistent (not longstanding) Qualified Code(s): I48.19 - Other persistent atrial fibrillation (8) S/p TAVR (transcatheter aortic valve replacement), bioprosthetic: (9) Coronary arteriosclerosis after coronary artery bypass grafting: (10) Hyperglycemia: A1c 6.2. Hypoglycemia protocol. (11) Depression: Continue with new sertraline 25 mg daily (12) Thrombocytopenia: See above, repeat tomorrow (13) Atherosclerosis of coronary artery of [place] heart without angina pectoris: See notations above No active chest pain. Blood pressure soft. Continue with Plavix. Holding off on Imdur and statin for now. Qualifiers: Coronary Disease-Associated Artery/Lesion type: [place] artery Qualified Code(s): I25.10 - Atherosclerotic heart disease of [place] coronary artery without angina pectoris (14) Hypokalemia: Monitor regularly. Repeat BMP in afternoon. (15) Seropositive rheumatoid arthritis of multiple sites: Hold sulfasalazine secondary to renal dysfunction Plan Multiple other medical problems as outlined in past medical history No need to be on both of fubuxostat and allopurinol. Continue febuxostat. CODE STATUS: Discussed in detail with the patient with caregiver at bedside. He wants to remain Allow natural but is okay with medical management. Eliquis will suffice for DVT prophylaxis Cardiac carb consistent diet Protonix for PUD prophylaxis Discharge plan: Given advanced age, significant deconditioning patient would benefit from placement to SNF. He is agreeable. Await PT and OT evaluation. Discussed with [employer]. Attestations 2 Medical Necessity Statement*: Continue admission for assessment of management of generalized weakness, JAMILA, transaminitis, encephalopathy. Diagnoses Hypotension, unspecified hypotension type I95.9 Hypotension type: unspecified hypotension type Weakness R53.1 Other cardiomyopathy I42.8 Cardiomyopathy type: other Nonsustained ventricular tachycardia I47.29 Acute kidney injury N17.9 Transaminitis R74.01 Persistent atrial fibrillation I48.19 Atrial fibrillation type: persistent (not longstanding) S/p TAVR (transcatheter aortic valve replacement), bioprosthetic Z95.3 Coronary arteriosclerosis after coronary artery bypass grafting I25.810 Hyperglycemia R73.9 Depression F32.A Thrombocytopenia D69.6 Atherosclerosis of [place] coronary artery of [place] heart without angina pectoris I25.10 Coronary Disease-Associated Artery/Lesion type: [place] artery Hypokalemia E87.6 Seropositive rheumatoid arthritis of multiple sites M05.79
--- NOTE | 2023-08-22 21:04 | P.PN_ITS ---
Subjective 2 Subjective: The blood pressure seems to be improving. The patient still is complaining of generalized weakness and difficulty in swallowing. No chest pain or shortness of breath. Generalized aches and pains. Medications: Medication Review Details: Current Medications Acetaminophen (Acetaminophen 325 Mg Tablet) 650 mg PO Q6H PRN PRN Reason: Mild/Mod Pain Or Temp >/= 101 Hydrocodone Bitart/Acetaminophen (Hydrocodone-Acetaminophen 5-325 Mg Tablet) 1 tab PO BID PRN PRN Reason: Pain Amiodarone HCl (Amiodarone 200 Mg Tablet) 200 mg PO BID [facility] Last Admin: 08/22/23 17:20 Dose: 200 mg Apixaban (Apixaban 5 Mg Tablet) 2.5 mg PO BID@0900,2100 [facility] Last Admin: 08/22/23 08:49 Dose: 2.5 mg Atorvastatin Calcium (Atorvastatin 40 Mg Tablet) 40 mg PO BEDTIME SLIME Last Admin: 08/18/23 20:46 Dose: 40 mg Benzocaine (Cetylpyridinium Lozenge) 1 each MUCOUS MEM Q2H PRN PRN Reason: SORE THROAT Last Admin: 08/21/23 06:50 Dose: 1 each Bumetanide (Bumetanide 1 Mg Tablet) 1 mg PO DAILY SLIME Last Admin: 08/22/23 08:49 Dose: 1 mg Clopidogrel Bisulfate (Clopidogrel 75 Mg Tablet) 75 mg PO DAILY SLIME Last Admin: 08/22/23 08:49 Dose: 75 mg Docusate Sodium (Docusate Sodium 100 Mg Capsule) 100 mg PO BID [facility] Last Admin: 08/22/23 17:20 Dose: 100 mg Doxycycline Monohydrate (Doxycycline 100 Mg Tablet) 100 mg PO BID SLIME; Protocol Last Admin: 08/22/23 17:20 Dose: 100 mg Amiodarone HCl/Dextrose (Nexterone) 360 mg in 200 mls @ 0 mls/hr IV .Q0M SLIME; Protocol Last Titration: 08/20/23 16:47 Dose: Infused Norepinephrine Bitartrate (Levophed) 4 mg in 250 mls @ 0 mls/hr IV .Q0M SLIME; Protocol Last Titration: 08/22/23 14:57 Dose: Infused Vancomycin/PEG/NADA/Lysine/Water (Vancocin) 1,250 mg in 250 mls @ 250 mls/hr IV Q24H SLIME Last Infusion: 08/22/23 14:21 Dose: Infused Isosorbide Mononitrate (Isosorbide Mononitrate Er 30 Mg Tablet) 30 mg PO DAILY [facility] Meropenem (Meropenem 1,000 Mg Sdv) 1,000 mg IVP Q12H [facility]; Protocol Last Admin: 08/22/23 19:50 Dose: 1,000 mg Midodrine (Midodrine 5 Mg Tablet) 10 mg PO TID [facility] Last Admin: 08/22/23 14:05 Dose: 10 mg Non-Formulary Medication (Febuxostat) 80 mg PO DAILY [facility] Last Admin: 08/22/23 09:01 Dose: Not Given Ondansetron HCl (Ondansetron 2 Mg/Ml Sdv 2 Ml) 4 mg IVP Q6H PRN PRN Reason: vomiting, or N/V if npo Pantoprazole Sodium (Pantoprazole Dr 40 Mg Tablet) 40 mg PO DAILY [facility] Last Admin: 08/22/23 08:49 Dose: 40 mg Prednisone (Prednisone 20 Mg Tablet) 20 mg PO DAILY [facility] Sertraline HCl (Sertraline 50 Mg Tablet) 25 mg PO DAILY [facility] Last Admin: 08/22/23 08:49 Dose: 25 mg Trazodone HCl (Trazodone 50 Mg Tablet) 50 mg PO BEDTIME PRN PRN Reason: INSOMNIA Vitals/I&O/Wt Last Vital Signs Temp 98.2 F 08/22/23 20:00 Pulse 80 08/22/23 20:00 Resp 12 08/22/23 20:00 BP 102/62 08/22/23 20:00 Pulse Ox 96 08/22/23 20:00 O2 Del Method Room Air 08/22/23 20:00 O2 Flow Rate 2 08/22/23 09:00 08/22/23 08/22/23 08/22/23 06:59 14:59 22:59 Intake Total 750 / 750 Output Total 450 / 1450 1100 / 1100 Balance -450 / -564.375 750 / 750 -1100 / -350 Weight last 48 hrs Weight 179 lb 9.6 oz Weight 177 lb 3.2 oz Physical Exam 2 Narrative: GENERAL: The patient is alert and oriented times three. Not in any acute distress. Chronically ill looking HEENT: No significant pallor, icterus or lymphadenopathy.Oral cavity: There are no mucous membrane lesions. NECK: Trachea appears to be central. No masses noted. No JVD or thyromegaly appreciated. RESPIRATORY: Chest is symmetrical. No intercostals muscle retraction or any accessory muscle activation. There is no chest wall tenderness. Breath sounds are heard bilaterally. No rales or rhonchi heard. No evidence of any consolidation. BREASTS: Deferred. HEART: The heart sounds are normal. No S3 or S4. Short systolic murmur at the base of the heart. No diastolic murmurs. No pericardial rub ABDOMEN: No vessel pulsations or distention. No tenderness. No organomegaly appreciated. Bowel sounds are normally heard. : Deferred. RECTAL: Deferred. LYMPHATIC: No lymphadenopathy noted in the neck. EXTREMITIES: No edema or cyanosis. No clubbing. MUSCULOSKELETAL: No acute joint deformities or swelling SKIN: There are no significant rashes or ecchymosis NEUROPSYCHIATRIC: The patient is alert and oriented x3. No focal motor deficits. Has some generalized tardiness. Urinary Catheter Management: [place]: Cath Placed During This Visit: yes Reason for Continuing Indwelling Catheter: Accurate Measurement of Urinary Output in Critically Ill Patients Urinary Catheter Date of Insertion: 08/19/23 Urinary Catheter Time of Insertion: 12:00 Data 08/22/23 02:50 08/22/23 02:50 Other Labs: Laboratory Last Values WBC 8.24 10^3/uL (3.29-11.43) 08/22/23 02:50 Corrected WBC Cancelled 08/21/23 05:05 RBC 4.01 10^6/uL (3.85-5.65) 08/22/23 02:50 Hgb 12.30 g/dL (11.27-16.99) 08/22/23 02:50 Hct 36.9 % (37-53) L 08/22/23 02:50 MCV 92.0 fl (82-101) 08/22/23 02:50 MCH 30.7 pg (27-33) 08/22/23 02:50 MCHC 33.3 g/dL (30-55) 08/22/23 02:50 RDW 13.8 % (12.1-15.1) 08/22/23 02:50 Plt Count 121 10^3/cmm (157-399) L 08/22/23 02:50 MPV 10.9 fL (7.4-10.4) H 08/22/23 02:50 Gran % Cancelled 08/21/23 05:05 Neut % (Auto) 28.0 % 08/22/23 02:50 Lymph % (Auto) 65.8 % 08/22/23 02:50 Sebastian % (Auto) 5.5 % 08/22/23 02:50 Eos % (Auto) 0.1 % 08/22/23 02:50 Baso % (Auto) 0.4 % 08/22/23 02:50 Neut # (Auto) 2.31 10^3/uL (1.8-7.7) 08/22/23 02:50 Lymph # (Auto) 5.4 10^3/uL (0.8-4.8) H 08/22/23 02:50 Sebastian # (Auto) 0.5 10^3/uL (0.2-0.9) 08/22/23 02:50 Eos # (Auto) 0.0 10^3/uL (0.0-0.8) 08/22/23 02:50 Baso # (Auto) 0.0 10^3/uL (0.0-0.1) 08/22/23 02:50 Absolute Gran (auto) Cancelled 08/21/23 05:05 Nucleated RBC % (auto) 0 % 08/22/23 02:50 Nucleated RBCs # 0.0 /100WBC 08/22/23 02:50 Specimen Type Arterial 08/18/23 07:49 Sample Site Brachial, left 08/18/23 07:49 ABG pH 7.50 (7.35-7.45) H 08/18/23 07:49 ABG pCO2 30.5 mmHg (35-45) L 08/18/23 07:49 ABG pO2 75.2 mmHg (80.0-100.0) L 08/18/23 07:49 ABG PO2/FiO2 Ratio 235 08/18/23 07:49 ABG HCO3 23.5 mmol/L (22-26) 08/18/23 07:49 ABG O2 Saturation 96.0 08/18/23 07:49 ABG Base Excess 1.0 mmol/L (-2.0-2.0) 08/18/23 07:49 Tony Test Pos 08/18/23 07:49 A-a O2 Gradient 14.9 mmHg (5-10) H 08/18/23 07:49 Hematocrit 41.7 % (42-52) L 08/18/23 07:49 Hgb O2 Saturation 95.1 % (95-100) 08/18/23 07:49 Carboxyhemoglobin 0.8 %THgb (0.4-20.1) 08/18/23 07:49 Methemoglobin 0.1 % (0.4-1.5) L 08/18/23 07:49 Total Hemoglobin 13.6 g/dL (14-18) L 08/18/23 07:49 Sodium 135.0 mmol/L (131-143) 08/18/23 07:49 Potassium 3.2 mmol/L (3.5-5.0) L 08/18/23 07:49 Glucose 190.0 mg/dL (70-115) H 08/18/23 07:49 Ionized Calcium 1.2 mmol/L (1.1-1.4) 08/18/23 07:49 O2 Delivery Device Nc 08/18/23 07:49 O2 Liters/Min 3.0 % 08/18/23 07:49 FiO2 32.0 % 08/18/23 07:49 Inspector Packager ID Cak 08/18/23 07:49 Sodium 136 mmol/L (136-145) 08/22/23 02:50 Potassium 3.3 mmol/L (3.5-5.1) L 08/22/23 02:50 Chloride 98 mmol/L (98-107) 08/22/23 02:50 Carbon Dioxide 25 mmol/L (22-29) 08/22/23 02:50 Anion Gap 16.3 (5-19) 08/22/23 02:50 BUN 52 mg/dL (8-23) H 08/22/23 02:50 Creatinine 1.4 mg/dL (0.7-1.2) H 08/22/23 02:50 GFR Calculation Not Reportable 08/22/23 02:50 Glucose 128 mg/dL (65-115) H 08/22/23 02:50 POC Glucose 289 mg/dL (70-110) H 08/18/23 16:46 Estimat Average Glucose 131 08/18/23 07:42 Hemoglobin A1c 6.2 % (4.0-6.0) H 08/18/23 07:42 Calculated Osmolality 298 mOsm/kg (285-295) H 08/22/23 02:50 Lactic Acid 1.8 mmol/L (0.5-2.2) 08/20/23 17:11 Lactic Acid (Sepsis) 2.8 mmol/L (0.5-2.2) H 08/18/23 09:52 Lactate 2.2 mmol/L (0.5-2.2) 08/19/23 11:30 Calcium 8.9 mg/dL (8.5-10.5) 08/22/23 02:50 Magnesium 2.5 mg/dL (1.7-2.3) H 08/22/23 02:50 Iron 117 ug/dL (59-158) 08/19/23 03:28 TIBC 201 mcg/dl 08/19/23 03:28 % Saturation 58.2 % (20-50) H 08/19/23 03:28 Unsat Iron Binding 84 ug/dL (112-347) L 08/19/23 03:28 Total Bilirubin 0.4 mg/dL (0.15-1.2) 08/22/23 02:50 GGT 53 U/L (8-61) 08/20/23 05:05 AST 171 U/L (0-40) H 08/22/23 02:50 ALT 238 U/L (0-41) H 08/22/23 02:50 Alkaline Phosphatase 68 U/L (40-130) 08/22/23 02:50 Lactate Dehydrogenase 669 U/L (135-225) H 08/20/23 05:05 Creatine Kinase 179 U/L (39-308) 08/18/23 07:42 Troponin T Baseline 57 ng/L (0-15) H 08/18/23 07:42 Troponin T 120 Minute 58.21 ng/L (0-15) H 08/18/23 09:52 Delta Troponin T 1.21 ABS# (0-10) 08/18/23 09:52 Troponin T Hi Sens 6Hr 58.47 ng/L (0-15) H 08/18/23 13:19 Troponin T Hi Sens 6Hr Delta 1.47 ng/L (0-12) 08/18/23 13:19 C-Reactive Protein 92.4 mg/L (0.0-4.9) H 08/18/23 09:52 NT-Pro-B Natriuret Pep 3647 pg/mL (0-450) H 08/18/23 07:42 Total Protein 5.7 g/dL (6.6-8.7) L 08/22/23 02:50 Albumin 3.1 g/dL (3.5-5.2) L 08/22/23 02:50 Globulin 2.6 g/dL (1.3-4.6) 08/22/23 02:50 Rrpct-7-Ydlsxwpjk 0.4 g/dL (0.2-0.3) H 08/18/23 13:19 Zxzgj-3-Ltnzfujkn 0.8 g/dL (0.5-0.9) 08/18/23 13:19 Stiq-4-Jenlodki 0.4 g/dL (0.4-0.6) 08/18/23 13:19 Cknb-7-Bmmzpips 0.4 g/dL (0.2-0.5) 08/18/23 13:19 Gamma Globulins 1.3 g/dL (0.8-1.7) 08/18/23 13:19 Abnorm Protein Band 1 0.7 g/dL (NONE DETECTED) H 08/18/23 13:19 Triglycerides 230 mg/dL (0-150) H 08/20/23 05:05 Cholesterol 59 mg/dL (0-200) 08/20/23 05:05 LDL Cholesterol, Calc 2 mg/dL (50-129) L 08/20/23 05:05 Total VLDL Cholesterol 46 mg/dL (0-30) H 08/20/23 05:05 HDL Cholesterol 11 mg/dL (60-100) L 08/20/23 05:05 Cholesterol/HDL Ratio 5.36 mg/dL (1.0-5.00) H 08/20/23 05:05 Vitamin B12 775 pg/mL (232-1245) 08/18/23 07:42 Folate 4.6 ng/mL (4.5-32.2) 08/20/23 05:05 Procalcitonin 0.60 ng/mL (0-0.5) H 08/18/23 09:52 Random Cortisol 36.33 ug/dL (2.47-19.5) H 08/19/23 03:28 Urine Color Yellow (Yellow) 08/18/23 09:02 Urine Appearance Cloudy (CLEAR) A 08/18/23 09:02 Urine pH 5 (5-7) 08/18/23 09:02 Ur Specific [place] 1.015 (1.005-1.030) 08/18/23 09:02 Urine Protein 1+ (Negative) H 08/18/23 09:02 Urine Glucose (UA) 4+ (Normal) H 08/18/23 09:02 Urine Ketones Negative (Negative) 08/18/23 09:02 Urine Blood 3+ (Negative) H 08/18/23 09:02 Urine Nitrate Negative (Negative) 08/18/23 09:02 Urine Bilirubin Neg (Negative) 08/18/23 09:02 Urine Urobilinogen Neg mg/dL (Negative) 08/18/23 09:02 Ur Leukocyte Esterase Negative (Negative) 08/18/23 09:02 Urine RBC 40-50 /hpf (0-2) H 08/18/23 09:02 Urine WBC 0-4 /hpf (0-5) H 08/18/23 09:02 Ur Eosinophil Smear 0 (0-0) 08/19/23 12:45 Ur Squamous Epith Cells 0-4 /hpf (0-5) H 08/18/23 09:02 Amorphous Sediment 2+ /hpf 08/18/23 09:02 Urine Bacteria 2+ /hpf (NONE) H 08/18/23 09:02 Coarse Granular Casts 10-15 /lpf H 08/18/23 09:02 Urine Mucus Trace /hpf 08/18/23 09:02 Urine Eosinophils No eosinophils seen 08/19/23 12:45 Ur Random Sodium 15 mmol/L 08/19/23 12:45 Ur Random Potassium 40 mmol/L 08/19/23 12:45 Ur Random Chloride 15 mmol/L 08/19/23 12:45 Urine Creatinine 104 mg/dL (39-259) 08/19/23 12:45 U Abnormal Prot Band 2 0.1 g/dL (NONE DETECTED) H 08/18/23 13:19 U Abnormal Prot Band 3 Not Reportable 08/18/23 13:19 Digoxin 1.1 ng/mL (0.6-1.2) 08/18/23 07:42 Pro Electrophoresis Int See note 08/18/23 13:19 Adenovirus (PCR) Not detected (NOT DETECT) 08/18/23 09:35 Lyme Ab (Western Blot) <0.90 index 08/18/23 16:31 C. pneumoniae DNA (PCR) Not detected (NOT DETECT) 08/18/23 09:35 Coronavirus 229E (PCR) Not detected (NOT DETECT) 08/18/23 09:35 Hepatitis A IgM Ab Non-reactive (Nonreactive) 08/18/23 13:19 Hep Bs Antigen Non-reactive (Nonreactive) 08/18/23 13:19 Hep B Core IgM Ab Non-reactive (Nonreactive) 08/18/23 13:19 Hepatitis C Antibody Non-reactive (Nonreactive) 08/18/23 13:19 HIV 1&2 Ab & HIV 1 Ag Non-reactive (Non-Reactiv) 08/20/23 05:05 HIV 1&2 Antibody Non-reactive (Non-Reactiv) 08/20/23 05:05 Human Metapneumovir PCR Not detected (NOT DETECT) 08/18/23 09:35 Influenza A (H1) PCR Not detected (NOT DETECT) 08/18/23 09:35 Influ A (H1/09) PCR Not detected (NOT DETECT) 08/18/23 09:35 Influenza A (H3) PCR Not detected (NOT DETECT) 08/18/23 09:35 Influenza Type A (PCR) Not detected (NOT DETECT) 08/18/23 09:35 Influenza Type B (PCR) Not detected (NOT DETECT) 08/18/23 09:35 M. pneumoniae (PCR) Not detected (NOT DETECT) 08/18/23 09:35 Parainfluenza 1 (PCR) Not detected (NOT DETECT) 08/18/23 09:35 Parainfluenza 2 (PCR) Not detected (NOT DETECT) 08/18/23 09:35 Parainfluenza 3 (PCR) Not detected (NOT DETECT) 08/18/23 09:35 Parainfluenza 4 (PCR) Not detected (NOT DETECT) 08/18/23 09:35 RSV Type A (PCR) Not detected (NOT DETECT) 08/18/23 09:35 RSV Type B (PCR) Not detected (NOT DETECT) 08/18/23 09:35 Entero/Rhino (PCR) Not detected (NOT DETECT) 08/18/23 09:35 SARS-CoV-2 (PCR) Not detected (NOT DETECT) 08/18/23 09:35 A&P Assessment and plan (1) Generalized weakness: Etiology is unclear. In view of the markedly elevated CRP and inflammatory process should be a consideration. (2) Hypotension: Currently he is normotensive. His LV function is stable with ejection fraction of 40%. He has no evidence of any acute myocardial injury. Qualifiers: Hypotension type: unspecified hypotension type Qualified Code(s): I95.9 - Hypotension, unspecified (3) Elevated troponin: Most likely type II HI Because of the 100% V pacing, EKG is not helpful. There is no drop in the LV ejection fraction. Atrial fibrillation/ventricular arrhythmia are contributing factors for the troponin elevation. (4) Pacemaker: Pacemaker function was found to be appropriate. (5) Cardiomyopathy: LV ejection fraction 40% by echocardiogram. No clinical evidence of any heart failure. Qualifiers: Cardiomyopathy type: other Qualified Code(s): I42.8 - Other cardiomyopathies (6) Atrial fibrillation: On oral anticoagulation. This may be continued. Qualifiers: Atrial fibrillation type: persistent (not longstanding) Qualified Code(s): I48.19 - Other persistent atrial fibrillation (7) S/p TAVR (transcatheter aortic valve replacement), bioprosthetic: Valve function seems to be appropriate. (8) Coronary arteriosclerosis after coronary artery bypass grafting: Patient has no chest pain or any specific ischemic symptoms. (9) Acute kidney injury superimposed on chronic kidney disease: Patient may have an element of dehydration. Careful hydration might be appropriate Plan Other problems are Difficulty in ambulation Difficulty in swallowing Intermittent confusion Hypokalemia Hyponatremia Leukocytosis, improving The cardiac status seems to be stable. May continue on the current measures. In view of the elevated CRPs a trial of steroids might be appropriate-will leave it up to Dr. Jacobo. Attestations 2 Medical Necessity Statement*: Patient requires continued hospital stay for close monitoring and further management Coding Level of Care Code 83507 Diagnoses Generalized weakness R53.1 Hypotension, unspecified hypotension type I95.9 Hypotension type: unspecified hypotension type Elevated troponin R79.89 Pacemaker Z95.0 Other cardiomyopathy I42.8 Cardiomyopathy type: other Persistent atrial fibrillation I48.19 Atrial fibrillation type: persistent (not longstanding) S/p TAVR (transcatheter aortic valve replacement), bioprosthetic Z95.3 Coronary arteriosclerosis after coronary artery bypass grafting I25.810 Acute kidney injury superimposed on chronic kidney disease N17.9; N18.9
[2023-08-22] MEDS: predniSONE 20 mg Tablet PO (21:07)
[2023-08-23] VITALS (43 sets, daily range): BP systolic 102–165; BP diastolic 62–117; PULSE 66–116; RESP 9–30; TEMP 36.1–36.9; O2SAT 87–99
[2023-08-23] MEDS: trazodone 50 mg Tablet PO (00:48)
[2023-08-23 03:04] LABS: Basophils % 0.1 %; Eosinophils % 0.1 %; Hematocrit 36.7 % (37-53); Lymphocytes # 2.8 10^3/uL (0.8-4.8); Lymphocytes % 32.7 %; Mean Corpuscular HGB Conc 33.5 g/dL (30-55); Mean Corpuscular Hemoglobin 30.9 pg (27-33); Mean Corpuscular Volume 92.2 fl (82-101); Mean Platelet Volume 10.6 fL (7.4-10.4); Monocytes # 0.5 10^3/uL (0.2-0.9); Monocytes % 5.8 %; Neutrophils # 5.17 10^3/uL (1.8-7.7); Neutrophils % 60.9 %; Nucleated Red Blood Cells % 0 %; Platelet Count 141 10^3/cmm (157-399); Red Blood Count 3.98 10^6/uL (3.85-5.65); Red Cell Distribution Width 13.9 % (12.1-15.1); White Blood Count 8.48 10^3/uL (3.29-11.43)
[2023-08-23 03:32] LABS: Alanine Aminotransferase 200 U/L (0-41); Albumin Level 3.1 g/dL (3.5-5.2); Alkaline Phosphatase 71 U/L (40-130); Anion Gap 16.6 (5-19); Aspartate Amino Transferase 123 U/L (0-40); Blood Urea Nitrogen 42 mg/dL (8-23); Calcium 8.8 mg/dL (8.5-10.5); Carbon Dioxide 23 mmol/L (22-29); Chloride 101 mmol/L (98-107); Creatinine Clr Calc Pharmacy 50.3513; Globulin 2.8 g/dL (1.3-4.6); Glucose 180 mg/dL (65-115); Osmolality Calculated 299 mOsm/kg (285-295); Potassium 3.6 mmol/L (3.5-5.1); Sodium 137 mmol/L (136-145); Total Bilirubin 0.5 mg/dL (0.15-1.2); Total Protein 5.9 g/dL (6.6-8.7)
[2023-08-23 06:36] LABS: Glucose Point of Care 202 mg/dL (70-110)
[2023-08-23] MEDS: meropenem 1,000 mg SDV 1000 MG IVP ×2 (07:37→18:23)
[2023-08-23] MEDS: pantoprazole DR 40 mg Tablet PO (09:33)
[2023-08-23] MEDS: apixaban 5 mg Tablet 2.5 MG PO ×2 (09:33→21:15)
[2023-08-23] MEDS: amiodarone 200 mg Tablet PO ×2 (09:33→18:24)
[2023-08-23] MEDS: midodrine 5 mg TABLET 10 MG PO ×3 (09:33→21:15)
[2023-08-23] MEDS: docusate sodium 100 mg Capsule PO ×2 (09:33→18:24)
[2023-08-23] MEDS: sertraline 50 mg Tablet 25 MG PO (09:34)
[2023-08-23] MEDS: doxycycline 100 mg Tablet PO ×2 (09:34→18:24)
[2023-08-23] MEDS: predniSONE 20 mg Tablet PO (09:34)
[2023-08-23] MEDS: clopidogrel 75 mg Tablet PO (09:34)
--- NOTE | 2023-08-23 09:56 | PC.SOCIAL ---
IMM Update pg 2 of IMM updated and reviewed w/ patient. Copy provided and copy dated, initialed and placed in chart.
[2023-08-23] MEDS: vancomycin 1,250 MG/250 ML PIGGYBACK 150 MG IV (13:27)
--- NOTE | 2023-08-23 17:35 | P.PN_ITS ---
Subjective 2 Subjective: The patient is feeling somewhat better. Continues to have generalized weakness/lethargy and some difficulty in swallowing. Telemetry showed episodes of nonsustained ventricular tachycardia Medications: Medication Review Details: Current Medications Acetaminophen (Acetaminophen 325 Mg Tablet) 650 mg PO Q6H PRN PRN Reason: Mild/Mod Pain Or Temp >/= 101 Hydrocodone Bitart/Acetaminophen (Hydrocodone-Acetaminophen 5-325 Mg Tablet) 1 tab PO BID PRN PRN Reason: Pain Amiodarone HCl (Amiodarone 200 Mg Tablet) 200 mg PO BID FORMERLY [facility], [facility]–1983 Last Admin: 08/23/23 09:33 Dose: 200 mg Apixaban (Apixaban 5 Mg Tablet) 2.5 mg PO BID@0900,2100 SLIME Last Admin: 08/23/23 09:33 Dose: 2.5 mg Atorvastatin Calcium (Atorvastatin 40 Mg Tablet) 40 mg PO BEDTIME SLIME Last Admin: 08/18/23 20:46 Dose: 40 mg Benzocaine (Cetylpyridinium Lozenge) 1 each MUCOUS MEM Q2H PRN PRN Reason: SORE THROAT Last Admin: 08/21/23 06:50 Dose: 1 each Bumetanide (Bumetanide 1 Mg Tablet) 1 mg PO DAILY FORMERLY [facility], [facility]–1983 Last Admin: 08/22/23 08:49 Dose: 1 mg Clopidogrel Bisulfate (Clopidogrel 75 Mg Tablet) 75 mg PO DAILY FORMERLY [facility], [facility]–1983 Last Admin: 08/23/23 09:34 Dose: 75 mg Docusate Sodium (Docusate Sodium 100 Mg Capsule) 100 mg PO BID FORMERLY [facility], [facility]–1983 Last Admin: 08/23/23 09:33 Dose: 100 mg Doxycycline Monohydrate (Doxycycline 100 Mg Tablet) 100 mg PO BID FORMERLY [facility], [facility]–1983; Protocol Last Admin: 08/23/23 09:34 Dose: 100 mg Amiodarone HCl/Dextrose (Nexterone) 360 mg in 200 mls @ 0 mls/hr IV .Q0M SLIME; Protocol Last Titration: 08/20/23 16:47 Dose: Infused Norepinephrine Bitartrate (Levophed) 4 mg in 250 mls @ 0 mls/hr IV .Q0M SLIME; Protocol Last Titration: 08/22/23 14:57 Dose: Infused Vancomycin/PEG/NADA/Lysine/Water (Vancocin) 1,250 mg in 250 mls @ 250 mls/hr IV Q24H SLIME Last Admin: 08/23/23 13:27 Dose: 150 mls/hr Isosorbide Mononitrate (Isosorbide Mononitrate Er 30 Mg Tablet) 30 mg PO DAILY FORMERLY [facility], [facility] Meropenem (Meropenem 1,000 Mg Sdv) 1,000 mg IVP Q12H FORMERLY [facility], [facility]; Protocol Last Admin: 08/23/23 07:37 Dose: 1,000 mg Midodrine (Midodrine 5 Mg Tablet) 10 mg PO TID FORMERLY [facility], [facility] Last Admin: 08/23/23 16:10 Dose: 10 mg Non-Formulary Medication (Febuxostat) 80 mg PO DAILY FOR[facility]LY [facility], [facility] Last Admin: 08/23/23 09:28 Dose: Not Given Non-Formulary Medication (Potassium Citrate) 99 mg PO BID FORMERLY [facility], [facility] Last Admin: 08/23/23 13:02 Dose: Not Given Ondansetron HCl (Ondansetron 2 Mg/Ml Sdv 2 Ml) 4 mg IVP Q6H PRN PRN Reason: vomiting, or N/V if npo Pantoprazole Sodium (Pantoprazole Dr 40 Mg Tablet) 40 mg PO DAILY FOR[facility]LY [facility], [facility]–1983 Last Admin: 08/23/23 09:33 Dose: 40 mg Prednisone (Prednisone 20 Mg Tablet) 20 mg PO DAILY FOR[facility], [facility]1983 Last Admin: 08/23/23 09:34 Dose: 20 mg Sertraline HCl (Sertraline 50 Mg Tablet) 25 mg PO DAILY FOR[facility], [facility] Last Admin: 08/23/23 09:34 Dose: 25 mg Trazodone HCl (Trazodone 50 Mg Tablet) 50 mg PO BEDTIME PRN PRN Reason: INSOMNIA Last Admin: 08/23/23 00:48 Dose: 50 mg Vitals/I&O/Wt Last Vital Signs Temp 97.6 F 08/23/23 16:00 Pulse 80 08/23/23 16:00 Resp 22 H 08/23/23 16:00 BP 123/79 08/23/23 16:00 Pulse Ox 97 08/23/23 16:00 O2 Del Method Room Air 08/23/23 16:00 O2 Flow Rate 2 08/22/23 09:00 08/23/23 08/23/23 08/23/23 06:59 14:59 22:59 Intake Total 300 / 1350 720 / 720 Output Total 900 / 2450 650 / 650 Balance -600 / -1100 720 / 720 -650 / 70 Weight last 48 hrs Weight 179 lb 9.6 oz Weight 179 lb 9.6 oz Physical Exam 2 Narrative: GENERAL: The patient is alert and oriented times three. Not in any acute distress. Chronically ill looking HEENT: No significant pallor, icterus or lymphadenopathy.Oral cavity: There are no mucous membrane lesions. NECK: Trachea appears to be central. No masses noted. No JVD or thyromegaly appreciated. RESPIRATORY: Chest is symmetrical. No intercostals muscle retraction or any accessory muscle activation. There is no chest wall tenderness. Breath sounds are heard bilaterally. No rales or rhonchi heard. No evidence of any consolidation. BREASTS: Deferred. HEART: The heart sounds are normal. No S3 or S4. Short systolic murmur at the base of the heart. No diastolic murmurs. No pericardial rub ABDOMEN: No vessel pulsations or distention. No tenderness. No organomegaly appreciated. Bowel sounds are normally heard. : Deferred. RECTAL: Deferred. LYMPHATIC: No lymphadenopathy noted in the neck. EXTREMITIES: No edema or cyanosis. No clubbing. MUSCULOSKELETAL: No acute joint deformities or swelling SKIN: There are no significant rashes or ecchymosis NEUROPSYCHIATRIC: The patient is alert and oriented x3. No focal motor deficits. Has some generalized tardiness. Urinary Catheter Management: [place]: Cath Placed During This Visit: yes Reason for Continuing Indwelling Catheter: Accurate Measurement of Urinary Output in Critically Ill Patients Urinary Catheter Date of Insertion: 08/19/23 Urinary Catheter Time of Insertion: 12:00 Data 08/24/23 04:41 08/24/23 04:41 Other Labs: Laboratory Last Values WBC 8.48 10^3/uL (3.29-11.43) 08/23/23 02:32 Corrected WBC Cancelled 08/21/23 05:05 RBC 3.98 10^6/uL (3.85-5.65) 08/23/23 02:32 Hgb 12.30 g/dL (11.27-16.99) 08/23/23 02:32 Hct 36.7 % (37-53) L 08/23/23 02:32 MCV 92.2 fl (82-101) 08/23/23 02:32 MCH 30.9 pg (27-33) 08/23/23 02:32 MCHC 33.5 g/dL (30-55) 08/23/23 02:32 RDW 13.9 % (12.1-15.1) 08/23/23 02:32 Plt Count 141 10^3/cmm (157-399) L 08/23/23 02:32 MPV 10.6 fL (7.4-10.4) H 08/23/23 02:32 Gran % Cancelled 08/21/23 05:05 Neut % (Auto) 60.9 % 08/23/23 02:32 Lymph % (Auto) 32.7 % 08/23/23 02:32 [place]range % (Auto) 5.8 % 08/23/23 02:32 Eos % (Auto) 0.1 % 08/23/23 02:32 Baso % (Auto) 0.1 % 08/23/23 02:32 Neut # (Auto) 5.17 10^3/uL (1.8-7.7) 08/23/23 02:32 Lymph # (Auto) 2.8 10^3/uL (0.8-4.8) 08/23/23 02:32 [place] # (Auto) 0.5 10^3/uL (0.2-0.9) 08/23/23 02:32 Eos # (Auto) 0.0 10^3/uL (0.0-0.8) 08/23/23 02:32 Baso # (Auto) 0.0 10^3/uL (0.0-0.1) 08/23/23 02:32 Absolute Gran (auto) Cancelled 08/21/23 05:05 Nucleated RBC % (auto) 0 % 08/23/23 02:32 Nucleated RBCs # 0.0 /100WBC 08/23/23 02:32 Specimen Type Arterial 08/18/23 07:49 Sample Site Brachial, left 08/18/23 07:49 ABG pH 7.50 (7.35-7.45) H 08/18/23 07:49 ABG pCO2 30.5 mmHg (35-45) L 08/18/23 07:49 ABG pO2 75.2 mmHg (80.0-100.0) L 08/18/23 07:49 ABG PO2/FiO2 Ratio 235 08/18/23 07:49 ABG HCO3 23.5 mmol/L (22-26) 08/18/23 07:49 ABG O2 Saturation 96.0 08/18/23 07:49 ABG Base Excess 1.0 mmol/L (-2.0-2.0) 08/18/23 07:49 Tony Test Pos 08/18/23 07:49 A-a O2 Gradient 14.9 mmHg (5-10) H 08/18/23 07:49 Hematocrit 41.7 % (42-52) L 08/18/23 07:49 Hgb O2 Saturation 95.1 % (95-100) 08/18/23 07:49 Carboxyhemoglobin 0.8 %THgb (0.4-20.1) 08/18/23 07:49 Methemoglobin 0.1 % (0.4-1.5) L 08/18/23 07:49 Total Hemoglobin 13.6 g/dL (14-18) L 08/18/23 07:49 Sodium 135.0 mmol/L (131-143) 08/18/23 07:49 Potassium 3.2 mmol/L (3.5-5.0) L 08/18/23 07:49 Glucose 190.0 mg/dL (70-115) H 08/18/23 07:49 Ionized Calcium 1.2 mmol/L (1.1-1.4) 08/18/23 07:49 O2 Delivery Device Nc 08/18/23 07:49 O2 Liters/Min 3.0 % 08/18/23 07:49 FiO2 32.0 % 08/18/23 07:49 Trash Man ID Cak 08/18/23 07:49 Sodium 137 mmol/L (136-145) 08/23/23 02:32 Potassium 3.6 mmol/L (3.5-5.1) 08/23/23 02:32 Chloride 101 mmol/L (98-107) 08/23/23 02:32 Carbon Dioxide 23 mmol/L (22-29) 08/23/23 02:32 Anion Gap 16.6 (5-19) 08/23/23 02:32 BUN 42 mg/dL (8-23) H 08/23/23 02:32 Creatinine 1.2 mg/dL (0.7-1.2) 08/23/23 02:32 GFR Calculation Not Reportable 08/23/23 02:32 Glucose 180 mg/dL (65-115) H 08/23/23 02:32 POC Glucose 202 mg/dL (70-110) H 08/23/23 06:33 Estimat Average Glucose 131 08/18/23 07:42 Hemoglobin A1c 6.2 % (4.0-6.0) H 08/18/23 07:42 Calculated Osmolality 299 mOsm/kg (285-295) H 08/23/23 02:32 Lactic Acid 1.8 mmol/L (0.5-2.2) 08/20/23 17:11 Lactic Acid (Sepsis) 2.8 mmol/L (0.5-2.2) H 08/18/23 09:52 Lactate 2.2 mmol/L (0.5-2.2) 08/19/23 11:30 Calcium 8.8 mg/dL (8.5-10.5) 08/23/23 02:32 Magnesium 2.5 mg/dL (1.7-2.3) H 08/22/23 02:50 Iron 117 ug/dL (59-158) 08/19/23 03:28 TIBC 201 mcg/dl 08/19/23 03:28 % Saturation 58.2 % (20-50) H 08/19/23 03:28 Unsat Iron Binding 84 ug/dL (112-347) L 08/19/23 03:28 Total Bilirubin 0.5 mg/dL (0.15-1.2) 08/23/23 02:32 GGT 53 U/L (8-61) 08/20/23 05:05 AST 123 U/L (0-40) H 08/23/23 02:32 ALT 200 U/L (0-41) H 08/23/23 02:32 Alkaline Phosphatase 71 U/L (40-130) 08/23/23 02:32 Lactate Dehydrogenase 669 U/L (135-225) H 08/20/23 05:05 Creatine Kinase 179 U/L (39-308) 08/18/23 07:42 Troponin T Baseline 57 ng/L (0-15) H 08/18/23 07:42 Troponin T 120 Minute 58.21 ng/L (0-15) H 08/18/23 09:52 Delta Troponin T 1.21 ABS# (0-10) 08/18/23 09:52 Troponin T Hi Sens 6Hr 58.47 ng/L (0-15) H 08/18/23 13:19 Troponin T Hi Sens 6Hr Delta 1.47 ng/L (0-12) 08/18/23 13:19 C-Reactive Protein 92.4 mg/L (0.0-4.9) H 08/18/23 09:52 NT-Pro-B Natriuret Pep 3647 pg/mL (0-450) H 08/18/23 07:42 Total Protein 5.9 g/dL (6.6-8.7) L 08/23/23 02:32 Albumin 3.1 g/dL (3.5-5.2) L 08/23/23 02:32 Globulin 2.8 g/dL (1.3-4.6) 08/23/23 02:32 Itrkb-7-Sdnqjcgwx 0.4 g/dL (0.2-0.3) H 08/18/23 13:19 Emequ-5-Jwppgvrbs 0.8 g/dL (0.5-0.9) 08/18/23 13:19 Jura-2-Zarnztho 0.4 g/dL (0.4-0.6) 08/18/23 13:19 Cwhw-7-Rnsfrqaw 0.4 g/dL (0.2-0.5) 08/18/23 13:19 Gamma Globulins 1.3 g/dL (0.8-1.7) 08/18/23 13:19 Abnorm Protein Band 1 0.7 g/dL (NONE DETECTED) H 08/18/23 13:19 Triglycerides 230 mg/dL (0-150) H 08/20/23 05:05 Cholesterol 59 mg/dL (0-200) 08/20/23 05:05 LDL Cholesterol, Calc 2 mg/dL (50-129) L 08/20/23 05:05 Total VLDL Cholesterol 46 mg/dL (0-30) H 08/20/23 05:05 HDL Cholesterol 11 mg/dL (60-100) L 08/20/23 05:05 Cholesterol/HDL Ratio 5.36 mg/dL (1.0-5.00) H 08/20/23 05:05 Vitamin B12 775 pg/mL (232-1245) 08/18/23 07:42 Folate 4.6 ng/mL (4.5-32.2) 08/20/23 05:05 Procalcitonin 0.60 ng/mL (0-0.5) H 08/18/23 09:52 Random Cortisol 36.33 ug/dL (2.47-19.5) H 08/19/23 03:28 Urine Color Yellow (Yellow) 08/18/23 09:02 Urine Appearance Cloudy (CLEAR) A 08/18/23 09:02 Urine pH 5 (5-7) 08/18/23 09:02 Ur Specific [place] 1.015 (1.005-1.030) 08/18/23 09:02 Urine Protein 1+ (Negative) H 08/18/23 09:02 Urine Glucose (UA) 4+ (Normal) H 08/18/23 09:02 Urine Ketones Negative (Negative) 08/18/23 09:02 Urine Blood 3+ (Negative) H 08/18/23 09:02 Urine Nitrate Negative (Negative) 08/18/23 09:02 Urine Bilirubin Neg (Negative) 08/18/23 09:02 Urine Urobilinogen Neg mg/dL (Negative) 08/18/23 09:02 Ur Leukocyte Esterase Negative (Negative) 08/18/23 09:02 Urine RBC 40-50 /hpf (0-2) H 08/18/23 09:02 Urine WBC 0-4 /hpf (0-5) H 08/18/23 09:02 Ur Eosinophil Smear 0 (0-0) 08/19/23 12:45 Ur Squamous Epith Cells 0-4 /hpf (0-5) H 08/18/23 09:02 Amorphous Sediment 2+ /hpf 08/18/23 09:02 Urine Bacteria 2+ /hpf (NONE) H 08/18/23 09:02 Coarse Granular Casts 10-15 /lpf H 08/18/23 09:02 Urine Mucus Trace /hpf 08/18/23 09:02 Urine Eosinophils No eosinophils seen 08/19/23 12:45 Ur Random Sodium 15 mmol/L 08/19/23 12:45 Ur Random Potassium 40 mmol/L 08/19/23 12:45 Ur Random Chloride 15 mmol/L 08/19/23 12:45 Urine Creatinine 104 mg/dL (39-259) 08/19/23 12:45 U Abnormal Prot Band 2 0.1 g/dL (NONE DETECTED) H 08/18/23 13:19 U Abnormal Prot Band 3 Not Reportable 08/18/23 13:19 Digoxin 1.1 ng/mL (0.6-1.2) 08/18/23 07:42 Pro Electrophoresis Int See note 08/18/23 13:19 Adenovirus (PCR) Not detected (NOT DETECT) 08/18/23 09:35 Lyme Ab (Western Blot) <0.90 index 08/18/23 16:31 C. pneumoniae DNA (PCR) Not detected (NOT DETECT) 08/18/23 09:35 Coronavirus 229E (PCR) Not detected (NOT DETECT) 08/18/23 09:35 Hepatitis A IgM Ab Non-reactive (Nonreactive) 08/18/23 13:19 Hep Bs Antigen Non-reactive (Nonreactive) 08/18/23 13:19 Hep B Core IgM Ab Non-reactive (Nonreactive) 08/18/23 13:19 Hepatitis C Antibody Non-reactive (Nonreactive) 08/18/23 13:19 HIV 1&2 Ab & HIV 1 Ag Non-reactive (Non-Reactiv) 08/20/23 05:05 HIV 1&2 Antibody Non-reactive (Non-Reactiv) 08/20/23 05:05 Human Metapneumovir PCR Not detected (NOT DETECT) 08/18/23 09:35 Influenza A (H1) PCR Not detected (NOT DETECT) 08/18/23 09:35 Influ A (H1/09) PCR Not detected (NOT DETECT) 08/18/23 09:35 Influenza A (H3) PCR Not detected (NOT DETECT) 08/18/23 09:35 Influenza Type A (PCR) Not detected (NOT DETECT) 08/18/23 09:35 Influenza Type B (PCR) Not detected (NOT DETECT) 08/18/23 09:35 M. pneumoniae (PCR) Not detected (NOT DETECT) 08/18/23 09:35 Parainfluenza 1 (PCR) Not detected (NOT DETECT) 08/18/23 09:35 Parainfluenza 2 (PCR) Not detected (NOT DETECT) 08/18/23 09:35 Parainfluenza 3 (PCR) Not detected (NOT DETECT) 08/18/23 09:35 Parainfluenza 4 (PCR) Not detected (NOT DETECT) 08/18/23 09:35 RSV Type A (PCR) Not detected (NOT DETECT) 08/18/23 09:35 RSV Type B (PCR) Not detected (NOT DETECT) 08/18/23 09:35 Entero/Rhino (PCR) Not detected (NOT DETECT) 08/18/23 09:35 SARS-CoV-2 (PCR) Not detected (NOT DETECT) 08/18/23 09:35 Micro: Microbiology 08/18/23 08:00 Blood Culture - Final Blood NO GROWTH AFTER 5 DAYS 08/18/23 07:58 Blood Culture - Final Blood NO GROWTH AFTER 5 DAYS A&P Assessment and plan (1) Nonsustained monomorphic ventricular tachycardia: I may start the patient on amiodarone 200 mg p.o. twice daily. Other medications may be continued. (2) Generalized weakness: Etiology is unclear. In view of the markedly elevated CRP and inflammatory process should be a consideration. Patient was started on prednisone. Seems to have some improvement. May continue on the current management. (3) Hypotension: Currently he is normotensive. His LV function is stable with ejection fraction of 40%. He has no evidence of any acute myocardial injury. May continue on the current management. Qualifiers: Hypotension type: unspecified hypotension type Qualified Code(s): I95.9 - Hypotension, unspecified (4) Elevated troponin: Most likely type II OR Because of the 100% V pacing, EKG is not helpful. There is no drop in the LV ejection fraction. Atrial fibrillation/ventricular arrhythmia are contributing factors for the troponin elevation. (5) Pacemaker: Pacemaker function was found to be appropriate. Continue on the current management. (6) Cardiomyopathy: LV ejection fraction 40% by echocardiogram. No clinical evidence of any heart failure. Qualifiers: Cardiomyopathy type: other Qualified Code(s): I42.8 - Other cardiomyopathies (7) Atrial fibrillation: On oral anticoagulation. This may be continued. Qualifiers: Atrial fibrillation type: persistent (not longstanding) Qualified Code(s): I48.19 - Other persistent atrial fibrillation (8) S/p TAVR (transcatheter aortic valve replacement), bioprosthetic: Valve function seems to be appropriate. (9) Coronary arteriosclerosis after coronary artery bypass grafting: Patient has no chest pain or any specific ischemic symptoms. (10) Acute kidney injury superimposed on chronic kidney disease: Patient may have an element of dehydration. Careful hydration might be appropriate Plan Other problems are Difficulty in ambulation Difficulty in swallowing Intermittent confusion Hypokalemia Hyponatremia Leukocytosis, improving I will start the patient on amiodarone 400 mg p.o. twice daily Other medications may be continued Attestations 2 Medical Necessity Statement*: Patient requires continued hospital stay for close monitoring and further management Coding Level of Care Code Acute Code for Chg Fwd Diagnoses Nonsustained monomorphic ventricular tachycardia I47.29 Generalized weakness R53.1 Hypotension, unspecified hypotension type I95.9 Hypotension type: unspecified hypotension type Elevated troponin R79.89 Pacemaker Z95.0 Other cardiomyopathy I42.8 Cardiomyopathy type: other Persistent atrial fibrillation I48.19 Atrial fibrillation type: persistent (not longstanding) S/p TAVR (transcatheter aortic valve replacement), bioprosthetic Z95.3 Coronary arteriosclerosis after coronary artery bypass grafting I25.810 Acute kidney injury superimposed on chronic kidney disease N17.9; N18.9
--- NOTE | 2023-08-23 18:42 | P.PN_ITS ---
Subjective 2 Subjective: He is doing slightly better today. He is feeling generally weak. Has been having some generalized bodyaches, does state that his appetite had improved somewhat last night and this morning and he was able to eat some mashed potatoes with gravy. He reports that his throat has been somewhat raw/sore, making it more difficult for him to swallow. His friend reports that yesterday during her visit and visit of some other friends and they noticed that he was saying some things that did not respond to reality. He was describing them in quite a bit of detail. Vitals/I&O/Wt Last Vital Signs Temp 97.6 F 08/23/23 16:00 Pulse 80 08/23/23 16:00 Resp 22 H 08/23/23 16:00 BP 123/79 08/23/23 16:00 Pulse Ox 97 08/23/23 16:00 O2 Del Method Room Air 08/23/23 16:00 O2 Flow Rate 2 08/22/23 09:00 08/23/23 08/23/23 08/23/23 06:59 14:59 22:59 Intake Total 300 / 1350 720 / 720 Output Total 900 / 2450 650 / 650 Balance -600 / -1100 720 / 720 -650 / 70 Weight last 48 hrs Weight 81.465 kg Weight 81.465 kg Physical Exam 2 Narrative: Visited by his friend. Sitting up in chair. He appears slightly stronger, minimally more energetic, conversant, and in slightly better spirits. Const: COMMON NORMALS: patient oriented x3 and alert GENERAL APPEARANCE: c ooperative and frail appearing ORIENTATION/CONSCIOUSNESS: Yes awake HENMT: COMMON NORMALS: oropharynx normal Neck/C-Spine: COMMON NORMALS: no JVD Resp: COMMON NORMALS: normal respiratory effort and clear to auscultation bilaterally AUSCULTATION: clear to auscultation bilaterally Cardio: COMMON NORMALS: no JVD, regular rhythm, S1 normal heart sound present, S2 normal heart sound present and No murmurs present (Cardio) RHYTHM: regular rhythm HEART SOUNDS: S1 normal heart sound present and S2 normal heart sound present GI: COMMON NORMALS: Normal to inspection, nondistended, normoactive bowel sounds present, Soft to palpation and non-tender PALPATION: Yes Soft to palpation Extremity: COMMON NORMALS: no joint enlargement and no pedal edema OTHER: Generally weak, but 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 Mild mottling lower extremities. No cyanosis. Urinary Catheter Management: [facility]: Cath Placed During This Visit: yes Reason for Continuing Indwelling Catheter: Accurate Measurement of Urinary Output in Critically Ill Patients Urinary Catheter Date of Insertion: 08/19/23 Urinary Catheter Time of Insertion: 12:00 Data 08/23/23 02:32 08/23/23 02:32 Micro: Microbiology 08/18/23 08:00 Blood Culture - Final Blood NO GROWTH AFTER 5 DAYS 08/18/23 07:58 Blood Culture - Final Blood NO GROWTH AFTER 5 DAYS A&P Assessment and plan (1) Hypotension: Blood pressure with improvement today compared to yesterday. Has not had any additional low dips. Continue to monitor. If continues to do well we will titrate down midodrine. Continue to hold bumetanide. Pressors discontinued. Discussed with registered nurse hh case manager. Arrangements also underway for rehabilitation at [facility]. Shock with gradual improvement. Weaned off pressor. Blood pressure soft but maintaining even while sitting up. Transferred out of ICU. Reviewed vitals, CBC, BMP, magnesium, cardiology note, discussed with journeyman carpenter. As per discussion with cardiology contribution of cardiomyopathy to his overall condition is thought to be more minor. Not likely respond for shock, generalized weakness. Asked with patient and his friend, consideration of possible component of septic shock which is improving, question of component of hypovolemia? Hold Bumex. Continue midodrine. Reassess blood pressures. Off Imdur and Entresto. Cortisol levels performed. Appropriate. Repeat lactate level normal. Concerns for UTI. Reviewed urine culture, negative. Follow-up blood culture, urine culture. Continue with IV antibiotics. Antibiotics were broadened to meropenem and vancomycin. Continue for now. He remains afebrile, with no recurrence of leukocytosis on review of CBC. Blood cultures, cultures remain -ve 08/17. Qualifiers: Hypotension type: unspecified hypotension type Qualified Code(s): I95.9 - Hypotension, unspecified (2) Weakness: With clinical concern for possible PMR discussed with him and his friend regarding trial of prednisone, potential adverse effects. Monitor for risk of hyperglycemia, gastritis, additionally does appear to have possible mild delirium, perhaps ICU associated. Monitor for any worsening. Monitor blood pressure, although have been rather soft, doing better today. Discussed with them otherwise also follow-up with neurology, consideration of additional assessment, EMG, consideration of utility of muscle biopsy. Continue to also with also statin with a possibility of statin induced myopathy. He and his friend additionally requested if he could continue his home melatonin as needed for sleep instead of the medication he is receiving in the hospital. He has used it multiple times in the past without any issue. Discussed that would be okay if it can be brought into the hospital as we do not have it on the formulary. His friend is going to bring it for him. Discontinue trazodone if his medications brought in. Otherwise he is on sertraline, although this should not contribute to reported symptoms. Review of his other medications does not reveal any other obvious potential culprits. Discussed with registered nurse hh case manager. Arrangements also underway for rehabilitation at SNF. Generalized weakness, consideration of low output failure, but this appears to be less likely etiology per discussion with cardiology. Additionally with findings of elevated ESR, raising question of inflammatory condition, possibly PMR. Muscle enzyme not elevated. No stigmata of dermatomyositis. Trial of prednisone given persistent symptoms, ESR elevation, without symptoms of ongoing sepsis/infection. Monitor for risk of hyperglycemia, worsening BUN elevation. He will benefit from follow-up with neurology, EMG, possibly muscle biopsy. Additional considerations ICU myopathy, although symptoms have been preceding hospitalization. Other consideration may be given to statin induced myopathy, hold statin. Patient with global weakness, likely multifactorial. He has cardiomyopathy, renal dysfunction, rheumatoid arthritis, advancing age, concern for depression etc. Physical therapy consultation He would likely benefit from rehabilitation (3) Cardiomyopathy: Reviewed cardiology note. Bumetanide held with concern for hypovolemia. Possible low output heart failure, cardiogenic shock, had to go back on Levophed today. Discussed with journeyman carpenter we will reassess him again. Consideration of further cardiac diagnostic measures, continued support, pending additional recommendations. With multiorgan injury, JAMILA, transaminitis, mild encephalopathy. Continue Levophed, wean off as tolerating. Renal function with some improvement creatinine down to 1.7. Transaminitis with improvement. On midodrine. Reviewed vitals, CBC, CMP, magnesium. Noted antibiotics were broadened to meropenem and vancomycin. Continue. Monitor for risk of seizure with meropenem. Does have significant history of cardiomyopathy in the past. There is echocardiogram done within the last few years shows discrepancy in EF. EF until last echocardiogram was found to be around 35 to 40% but 1 done on July 27 showed to be 50%. Repeat echocardiogram yesterday shows an EF of 35 to 40% with dilated LA and global LV hypokinesia. Digoxin level stable. Hold off on digoxin for now. pacemaker interrogated Strict input output charting, daily weights. Rutherford catheterization. Fluid restriction to less than 1500 cc. Encouraged patient to maintain his oral hydration. No active chest pain. Continue with home dose of Plavix, Eliquis. Hold statins given transaminitis. Qualifiers: Cardiomyopathy type: other Qualified Code(s): I42.8 - Other cardiomyopathies (4) Nonsustained ventricular tachycardia: Reviewed potassium, magnesium. Supplement potassium. Repeat chemistry, magnesium. Seen on telemetry. No further episodes after starting amiodarone. Recurrent episode. Blood pressure in the soft so will not be able to give higher dose of metoprolol. Off metoprolol 12.5 mg twice daily. Continue with amiodarone drip as per protocol. Will switch over to 200 mg twice daily. Continue to monitor telemetry. Potassium around 4, magnesium around 2. (5) Acute kidney injury: Reviewed potassium, bicarb, anion gap, BUN, creatinine. Kidney function continue to improve. BUN down to 42, creatinine 1.2. He is making urine. Continue to hold bumetanide. Reviewed BUN, creatinine, potassium, kidney function with some improvement. Creatinine down to 1.4. Mild hypokalemia, requesting replacement. Most likely multifactorial in setting of cardiogenic shock in setting of recurrent nonsustained V. tach versus hypotension versus home use of diuretics, Entresto versus chronic outlet obstruction. CT abdomen pelvis done yesterday showed moderate bladder wall thickening with concerns for cystitis versus chronic outlet obstruction. Rutherford catheterization as above. Appreciate urine lites, urine creatinine, urine eosinophils. Diuretics as above today. Repeat BMP in afternoon. (6) Transaminitis: Continue to improve on review of transaminases. Requiring pressor support. Likely congestive transaminitis. Bilirubin alkaline phosphatase level normal. Hepatitis panel, respiratory viral panel negative. Check HIV. Appreciate CT abdomen pelvis. Given thrombocytopenia, acute kidney injury, worsening liver dysfunction pertinent to check tick panel. Sent out. Continue with oral doxycycline 100 mg twice daily. (7) Atrial fibrillation: Rate currently controlled. Continue with home dose of Eliquis. Digoxin level stable. Digoxin can discontinue for now. Amiodarone and metoprolol as above. Switch Eliquis to 2.5 mg twice daily given worsening creatinine now. Qualifiers: Atrial fibrillation type: persistent (not longstanding) Qualified Code(s): I48.19 - Other persistent atrial fibrillation (8) S/p TAVR (transcatheter aortic valve replacement), bioprosthetic: (9) Coronary arteriosclerosis after coronary artery bypass grafting: (10) Hyperglycemia: A1c 6.2. Hypoglycemia protocol. (11) Depression: Continue with new sertraline 25 mg daily (12) Thrombocytopenia: See above, repeat tomorrow (13) Atherosclerosis of coronary artery of [place] heart without angina pectoris: See notations above No active chest pain. Blood pressure soft. Continue with Plavix. Holding off on Imdur and statin for now. Qualifiers: Coronary Disease-Associated Artery/Lesion type: [place] artery Qualified Code(s): I25.10 - Atherosclerotic heart disease of [place] coronary artery without angina pectoris (14) Hypokalemia: Monitor regularly. Repeat BMP in afternoon. (15) Seropositive rheumatoid arthritis of multiple sites: Hold sulfasalazine secondary to renal dysfunction Plan Multiple other medical problems as outlined in past medical history No need to be on both of fubuxostat and allopurinol. Continue febuxostat. CODE STATUS: Discussed in detail with the patient with caregiver at bedside. He wants to remain Allow natural but is okay with medical management. Eliquis will suffice for DVT prophylaxis Cardiac carb consistent diet Protonix for PUD prophylaxis Discharge plan: Given advanced age, significant deconditioning patient would benefit from placement to SNF. He is agreeable. Await PT and OT evaluation. Discussed with registered nurse hh case manager. Attestations 2 Medical Necessity Statement*: Continue admission for assessment of management of generalized weakness, JAMILA, transaminitis, encephalopathy. Diagnoses Hypotension, unspecified hypotension type I95.9 Hypotension type: unspecified hypotension type Weakness R53.1 Other cardiomyopathy I42.8 Cardiomyopathy type: other Nonsustained ventricular tachycardia I47.29 Acute kidney injury N17.9 Transaminitis R74.01 Persistent atrial fibrillation I48.19 Atrial fibrillation type: persistent (not longstanding) S/p TAVR (transcatheter aortic valve replacement), bioprosthetic Z95.3 Coronary arteriosclerosis after coronary artery bypass grafting I25.810 Hyperglycemia R73.9 Depression F32.A Thrombocytopenia D69.6 Atherosclerosis of [place] coronary artery of [place] heart without angina pectoris I25.10 Coronary Disease-Associated Artery/Lesion type: [place] artery Hypokalemia E87.6 Seropositive rheumatoid arthritis of multiple sites M05.79
[2023-08-24] VITALS (8 sets, daily range): BP systolic 113–130; BP diastolic 65–78; PULSE 79–84; RESP 11–23; TEMP 36.6–36.9; O2SAT 94–97; BMI 26.5
[2023-08-24 04:59] LABS: Basophils % 0.2 %; Eosinophils % 0.2 %; Hematocrit 34.9 % (37-53); Lymphocytes # 2.1 10^3/uL (0.8-4.8); Lymphocytes % 32.4 %; Mean Corpuscular HGB Conc 33.8 g/dL (30-55); Mean Corpuscular Hemoglobin 30.7 pg (27-33); Mean Corpuscular Volume 90.9 fl (82-101); Mean Platelet Volume 9.9 fL (7.4-10.4); Monocytes # 0.7 10^3/uL (0.2-0.9); Monocytes % 11.3 %; Neutrophils # 3.65 10^3/uL (1.8-7.7); Neutrophils % 55.6 %; Nucleated Red Blood Cells % 0 %; Platelet Count 209 10^3/cmm (157-399); Red Blood Count 3.84 10^6/uL (3.85-5.65); White Blood Count 6.55 10^3/uL (3.29-11.43)
[2023-08-24 05:22] LABS: Alanine Aminotransferase 151 U/L (0-41); Albumin Level 3.2 g/dL (3.5-5.2); Alkaline Phosphatase 69 U/L (40-130); Blood Urea Nitrogen 35 mg/dL (8-23); Calcium 8.9 mg/dL (8.5-10.5); Carbon Dioxide 25 mmol/L (22-29); Chloride 102 mmol/L (98-107); Creatinine Clr Calc Pharmacy 54.9286; Globulin 2.3 g/dL (1.3-4.6); Glucose 156 mg/dL (65-115); Osmolality Calculated 299 mOsm/kg (285-295); Sodium 139 mmol/L (136-145); Total Bilirubin 0.4 mg/dL (0.15-1.2); Total Protein 5.5 g/dL (6.6-8.7)
[2023-08-24 05:23] LABS: Anion Gap 16.1 (5-19); Aspartate Amino Transferase 75 U/L (0-40); Potassium 4.1 mmol/L (3.5-5.1)
[2023-08-24] MEDS: meropenem 1,000 mg SDV 1000 MG IVP ×2 (06:14→18:22)
[2023-08-24] MEDS: midodrine 5 mg TABLET 10 MG PO ×3 (08:28→21:27)
[2023-08-24] MEDS: doxycycline 100 mg Tablet PO ×2 (08:28→17:14)
[2023-08-24] MEDS: sertraline 50 mg Tablet 25 MG PO (08:28)
[2023-08-24] MEDS: amiodarone 200 mg Tablet PO (08:28)
[2023-08-24] MEDS: clopidogrel 75 mg Tablet PO (08:28)
[2023-08-24] MEDS: apixaban 5 mg Tablet 2.5 MG PO ×2 (08:28→21:27)
[2023-08-24] MEDS: pantoprazole DR 40 mg Tablet PO (08:28)
[2023-08-24] MEDS: docusate sodium 100 mg Capsule PO ×2 (08:29→17:14)
[2023-08-24] MEDS: predniSONE 20 mg Tablet PO (08:29)
[2023-08-24] MEDS: vancomycin 1,250 MG/250 ML PIGGYBACK 150 MG IV (13:01)
[2023-08-24 15:05] LABS: Methicillin-Resist S.aureu PCR NOT DETECTED (NOT DETECTED)
[2023-08-24 17:00] LABS: RMSF IGG NOT DETECTED; RMSF IGM NOT DETECTED
[2023-08-24] MEDS: amiodarone 200 mg Tablet 400 MG PO (17:15)
--- NOTE | 2023-08-24 17:19 | PM.PN ---
Subjective Subjective: Patient continues to improve. The blood pressure is back to normal. Still has some generalized weakness but overall status has improved. Medications: Medication Review Details: Current Medications Acetaminophen (Acetaminophen 325 Mg Tablet) 650 mg PO Q6H PRN PRN Reason: Mild/Mod Pain Or Temp >/= 101 Amiodarone HCl (Amiodarone 200 Mg Tablet) 400 mg PO BID [facility] Last Admin: 08/24/23 17:15 Dose: 400 mg Apixaban (Apixaban 5 Mg Tablet) 2.5 mg PO BID@0900,2100 [facility] Last Admin: 08/24/23 08:28 Dose: 2.5 mg Atorvastatin Calcium (Atorvastatin 40 Mg Tablet) 40 mg PO BEDTIME [facility] Last Admin: 08/18/23 20:46 Dose: 40 mg Benzocaine (Cetylpyridinium Lozenge) 1 each MUCOUS MEM Q2H PRN PRN Reason: SORE THROAT Last Admin: 08/21/23 06:50 Dose: 1 each Bumetanide (Bumetanide 1 Mg Tablet) 1 mg PO DAILY [facility] Last Admin: 08/22/23 08:49 Dose: 1 mg Clopidogrel Bisulfate (Clopidogrel 75 Mg Tablet) 75 mg PO DAILY [facility] Last Admin: 08/24/23 08:28 Dose: 75 mg Docusate Sodium (Docusate Sodium 100 Mg Capsule) 100 mg PO BID [facility] Last Admin: 08/24/23 17:14 Dose: 100 mg Doxycycline Monohydrate (Doxycycline 100 Mg Tablet) 100 mg PO BID [facility]; Protocol Last Admin: 08/24/23 17:14 Dose: 100 mg Vancomycin/PEG/NADA/Lysine/Water (Vancocin) 1,250 mg in 250 mls @ 250 mls/hr IV Q24H [facility] Last Infusion: 08/24/23 15:28 Dose: Infused Isosorbide Mononitrate (Isosorbide Mononitrate Er 30 Mg Tablet) 30 mg PO DAILY [facility] Meropenem (Meropenem 1,000 Mg Sdv) 1,000 mg IVP Q12H [facility]; Protocol Last Admin: 08/24/23 06:14 Dose: 1,000 mg Midodrine (Midodrine 5 Mg Tablet) 10 mg PO TID [facility] Last Admin: 08/24/23 15:20 Dose: 10 mg Non-Formulary Medication (Febuxostat) 80 mg PO DAILY [facility] Last Admin: 08/24/23 08:43 Dose: Not Given Non-Formulary Medication (Potassium Citrate) 99 mg PO BID [facility] Last Admin: 08/24/23 08:42 Dose: Not Given Ondansetron HCl (Ondansetron 2 Mg/Ml Sdv 2 Ml) 4 mg IVP Q6H PRN PRN Reason: vomiting, or N/V if npo Pantoprazole Sodium (Pantoprazole Dr 40 Mg Tablet) 40 mg PO DAILY [facility] Last Admin: 08/24/23 08:28 Dose: 40 mg Prednisone (Prednisone 20 Mg Tablet) 20 mg PO DAILY [facility] Last Admin: 08/24/23 08:29 Dose: 20 mg Sertraline HCl (Sertraline 50 Mg Tablet) 25 mg PO DAILY [facility] Last Admin: 08/24/23 08:28 Dose: 25 mg Trazodone HCl (Trazodone 50 Mg Tablet) 50 mg PO BEDTIME PRN PRN Reason: INSOMNIA Last Admin: 08/23/23 00:48 Dose: 50 mg Vitals/I&O/Wt Last Vital Signs Temp 97.9 F 08/24/23 16:00 Pulse 80 08/24/23 16:00 Resp 17 08/24/23 16:00 BP 130/78 08/24/23 16:00 Pulse Ox 97 08/24/23 16:00 O2 Del Method Room Air 08/24/23 16:00 O2 Flow Rate 2 08/22/23 09:00 08/24/23 08/24/23 08/24/23 06:59 14:59 22:59 Intake Total 600 / 600 250 / 850 Output Total 850 / 850 Balance -250 / -250 250 / 0 Weight last 48 hrs Weight 179 lb 9.6 oz Weight 179 lb 9.6 oz Physical Exam Narrative: GENERAL: The patient is alert and oriented times three. Not in any acute distress. Chronically ill looking HEENT: No significant pallor, icterus or lymphadenopathy.Oral cavity: There are no mucous membrane lesions. NECK: Trachea appears to be central. No masses noted. No JVD or thyromegaly appreciated. RESPIRATORY: Chest is symmetrical. No intercostals muscle retraction or any accessory muscle activation. There is no chest wall tenderness. Breath sounds are heard bilaterally. No rales or rhonchi heard. No evidence of any consolidation. BREASTS: Deferred. HEART: The heart sounds are normal. No S3 or S4. Short systolic murmur at the base of the heart. No diastolic murmurs. No pericardial rub ABDOMEN: No vessel pulsations or distention. No tenderness. No organomegaly appreciated. Bowel sounds are normally heard. : Deferred. RECTAL: Deferred. LYMPHATIC: No lymphadenopathy noted in the neck. EXTREMITIES: No edema or cyanosis. No clubbing. MUSCULOSKELETAL: No acute joint deformities or swelling SKIN: There are no significant rashes or ecchymosis NEUROPSYCHIATRIC: The patient is alert and oriented x3. No focal motor deficits. Has some generalized tardiness. Urinary Catheter Management: [place]: Cath Placed During This Visit: yes Reason for Continuing Indwelling Catheter: Accurate Measurement of Urinary Output in Critically Ill Patients Urinary Catheter Date of Insertion: 08/19/23 Urinary Catheter Time of Insertion: 12:00 Data 08/24/23 04:41 08/24/23 04:41 Other Labs: Laboratory Last Values WBC 6.55 10^3/uL (3.29-11.43) 08/24/23 04:41 Corrected WBC Cancelled 08/21/23 05:05 RBC 3.84 10^6/uL (3.85-5.65) L 08/24/23 04:41 Hgb 11.80 g/dL (11.27-16.99) 08/24/23 04:41 Hct 34.9 % (37-53) L 08/24/23 04:41 MCV 90.9 fl (82-101) 08/24/23 04:41 MCH 30.7 pg (27-33) 08/24/23 04:41 MCHC 33.8 g/dL (30-55) 08/24/23 04:41 RDW 14.0 % (12.1-15.1) 08/24/23 04:41 Plt Count 209 10^3/cmm (157-399) D 08/24/23 04:41 MPV 9.9 fL (7.4-10.4) 08/24/23 04:41 Gran % Cancelled 08/21/23 05:05 Neut % (Auto) 55.6 % 08/24/23 04:41 Lymph % (Auto) 32.4 % 08/24/23 04:41 [place] % (Auto) 11.3 % 08/24/23 04:41 Eos % (Auto) 0.2 % 08/24/23 04:41 Baso % (Auto) 0.2 % 08/24/23 04:41 Neut # (Auto) 3.65 10^3/uL (1.8-7.7) 08/24/23 04:41 Lymph # (Auto) 2.1 10^3/uL (0.8-4.8) 08/24/23 04:41 York # (Auto) 0.7 10^3/uL (0.2-0.9) 08/24/23 04:41 Eos # (Auto) 0.0 10^3/uL (0.0-0.8) 08/24/23 04:41 Baso # (Auto) 0.0 10^3/uL (0.0-0.1) 08/24/23 04:41 Absolute Gran (auto) Cancelled 08/21/23 05:05 Nucleated RBC % (auto) 0 % 08/24/23 04:41 Nucleated RBCs # 0.0 /100WBC 08/24/23 04:41 Specimen Type Arterial 08/18/23 07:49 Sample Site Brachial, left 08/18/23 07:49 ABG pH 7.50 (7.35-7.45) H 08/18/23 07:49 ABG pCO2 30.5 mmHg (35-45) L 08/18/23 07:49 ABG pO2 75.2 mmHg (80.0-100.0) L 08/18/23 07:49 ABG PO2/FiO2 Ratio 235 08/18/23 07:49 ABG HCO3 23.5 mmol/L (22-26) 08/18/23 07:49 ABG O2 Saturation 96.0 08/18/23 07:49 ABG Base Excess 1.0 mmol/L (-2.0-2.0) 08/18/23 07:49 Tony Test Pos 08/18/23 07:49 A-a O2 Gradient 14.9 mmHg (5-10) H 08/18/23 07:49 Hematocrit 41.7 % (42-52) L 08/18/23 07:49 Hgb O2 Saturation 95.1 % (95-100) 08/18/23 07:49 Carboxyhemoglobin 0.8 %THgb (0.4-20.1) 08/18/23 07:49 Methemoglobin 0.1 % (0.4-1.5) L 08/18/23 07:49 Total Hemoglobin 13.6 g/dL (14-18) L 08/18/23 07:49 Sodium 135.0 mmol/L (131-143) 08/18/23 07:49 Potassium 3.2 mmol/L (3.5-5.0) L 08/18/23 07:49 Glucose 190.0 mg/dL (70-115) H 08/18/23 07:49 Ionized Calcium 1.2 mmol/L (1.1-1.4) 08/18/23 07:49 O2 Delivery Device Nc 08/18/23 07:49 O2 Liters/Min 3.0 % 08/18/23 07:49 FiO2 32.0 % 08/18/23 07:49 Intelligence Manager ID Cak 08/18/23 07:49 Sodium 139 mmol/L (136-145) 08/24/23 04:41 Potassium 4.1 mmol/L (3.5-5.1) 08/24/23 04:41 Chloride 102 mmol/L (98-107) 08/24/23 04:41 Carbon Dioxide 25 mmol/L (22-29) 08/24/23 04:41 Anion Gap 16.1 (5-19) 08/24/23 04:41 BUN 35 mg/dL (8-23) H 08/24/23 04:41 Creatinine 1.1 mg/dL (0.7-1.2) 08/24/23 04:41 GFR Calculation Not Reportable 08/24/23 04:41 Glucose 156 mg/dL (65-115) H 08/24/23 04:41 POC Glucose 202 mg/dL (70-110) H 08/23/23 06:33 Estimat Average Glucose 131 08/18/23 07:42 Hemoglobin A1c 6.2 % (4.0-6.0) H 08/18/23 07:42 Calculated Osmolality 299 mOsm/kg (285-295) H 08/24/23 04:41 Lactic Acid 1.8 mmol/L (0.5-2.2) 08/20/23 17:11 Lactic Acid (Sepsis) 2.8 mmol/L (0.5-2.2) H 08/18/23 09:52 Lactate 2.2 mmol/L (0.5-2.2) 08/19/23 11:30 Calcium 8.9 mg/dL (8.5-10.5) 08/24/23 04:41 Magnesium 2.5 mg/dL (1.7-2.3) H 08/22/23 02:50 Iron 117 ug/dL (59-158) 08/19/23 03:28 TIBC 201 mcg/dl 08/19/23 03:28 % Saturation 58.2 % (20-50) H 08/19/23 03:28 Unsat Iron Binding 84 ug/dL (112-347) L 08/19/23 03:28 Total Bilirubin 0.4 mg/dL (0.15-1.2) 08/24/23 04:41 GGT 53 U/L (8-61) 08/20/23 05:05 AST 75 U/L (0-40) H 08/24/23 04:41 ALT 151 U/L (0-41) H 08/24/23 04:41 Alkaline Phosphatase 69 U/L (40-130) 08/24/23 04:41 Lactate Dehydrogenase 669 U/L (135-225) H 08/20/23 05:05 Creatine Kinase 179 U/L (39-308) 08/18/23 07:42 Troponin T Baseline 57 ng/L (0-15) H 08/18/23 07:42 Troponin T 120 Minute 58.21 ng/L (0-15) H 08/18/23 09:52 Delta Troponin T 1.21 ABS# (0-10) 08/18/23 09:52 Troponin T Hi Sens 6Hr 58.47 ng/L (0-15) H 08/18/23 13:19 Troponin T Hi Sens 6Hr Delta 1.47 ng/L (0-12) 08/18/23 13:19 C-Reactive Protein 92.4 mg/L (0.0-4.9) H 08/18/23 09:52 NT-Pro-B Natriuret Pep 3647 pg/mL (0-450) H 08/18/23 07:42 Total Protein 5.5 g/dL (6.6-8.7) L 08/24/23 04:41 Albumin 3.2 g/dL (3.5-5.2) L 08/24/23 04:41 Globulin 2.3 g/dL (1.3-4.6) 08/24/23 04:41 Jauow-8-Jrevbwjgk 0.4 g/dL (0.2-0.3) H 08/18/23 13:19 Fhecf-3-Whirygyim 0.8 g/dL (0.5-0.9) 08/18/23 13:19 Unud-3-Vyegkzru 0.4 g/dL (0.4-0.6) 08/18/23 13:19 Qykg-4-Oiklliuj 0.4 g/dL (0.2-0.5) 08/18/23 13:19 Gamma Globulins 1.3 g/dL (0.8-1.7) 08/18/23 13:19 Abnorm Protein Band 1 0.7 g/dL (NONE DETECTED) H 08/18/23 13:19 Triglycerides 230 mg/dL (0-150) H 08/20/23 05:05 Cholesterol 59 mg/dL (0-200) 08/20/23 05:05 LDL Cholesterol, Calc 2 mg/dL (50-129) L 08/20/23 05:05 Total VLDL Cholesterol 46 mg/dL (0-30) H 08/20/23 05:05 HDL Cholesterol 11 mg/dL (60-100) L 08/20/23 05:05 Cholesterol/HDL Ratio 5.36 mg/dL (1.0-5.00) H 08/20/23 05:05 Vitamin B12 775 pg/mL (232-1245) 08/18/23 07:42 Folate 4.6 ng/mL (4.5-32.2) 08/20/23 05:05 Procalcitonin 0.60 ng/mL (0-0.5) H 08/18/23 09:52 Random Cortisol 36.33 ug/dL (2.47-19.5) H 08/19/23 03:28 Urine Color Yellow (Yellow) 08/18/23 09:02 Urine Appearance Cloudy (CLEAR) A 08/18/23 09:02 Urine pH 5 (5-7) 08/18/23 09:02 Ur Specific Malcolm 1.015 (1.005-1.030) 08/18/23 09:02 Urine Protein 1+ (Negative) H 08/18/23 09:02 Urine Glucose (UA) 4+ (Normal) H 08/18/23 09:02 Urine Ketones Negative (Negative) 08/18/23 09:02 Urine Blood 3+ (Negative) H 08/18/23 09:02 Urine Nitrate Negative (Negative) 08/18/23 09:02 Urine Bilirubin Neg (Negative) 08/18/23 09:02 Urine Urobilinogen Neg mg/dL (Negative) 08/18/23 09:02 Ur Leukocyte Esterase Negative (Negative) 08/18/23 09:02 Urine RBC 40-50 /hpf (0-2) H 08/18/23 09:02 Urine WBC 0-4 /hpf (0-5) H 08/18/23 09:02 Ur Eosinophil Smear 0 (0-0) 08/19/23 12:45 Ur Squamous Epith Cells 0-4 /hpf (0-5) H 08/18/23 09:02 Amorphous Sediment 2+ /hpf 08/18/23 09:02 Urine Bacteria 2+ /hpf (NONE) H 08/18/23 09:02 Coarse Granular Casts 10-15 /lpf H 08/18/23 09:02 Urine Mucus Trace /hpf 08/18/23 09:02 Urine Eosinophils No eosinophils seen 08/19/23 12:45 Ur Random Sodium 15 mmol/L 08/19/23 12:45 Ur Random Potassium 40 mmol/L 08/19/23 12:45 Ur Random Chloride 15 mmol/L 08/19/23 12:45 Urine Creatinine 104 mg/dL (39-259) 08/19/23 12:45 U Abnormal Prot Band 2 0.1 g/dL (NONE DETECTED) H 08/18/23 13:19 U Abnormal Prot Band 3 Not Reportable 08/18/23 13:19 Digoxin 1.1 ng/mL (0.6-1.2) 08/18/23 07:42 Pro Electrophoresis Int See note 08/18/23 13:19 Adenovirus (PCR) Not detected (NOT DETECT) 08/18/23 09:35 Lyme Ab (Western Blot) <0.90 index 08/18/23 16:31 C. pneumoniae DNA (PCR) Not detected (NOT DETECT) 08/18/23 09:35 Coronavirus 229E (PCR) Not detected (NOT DETECT) 08/18/23 09:35 Hepatitis A IgM Ab Non-reactive (Nonreactive) 08/18/23 13:19 Hep Bs Antigen Non-reactive (Nonreactive) 08/18/23 13:19 Hep B Core IgM Ab Non-reactive (Nonreactive) 08/18/23 13:19 Hepatitis C Antibody Non-reactive (Nonreactive) 08/18/23 13:19 HIV 1&2 Ab & HIV 1 Ag Non-reactive (Non-Reactiv) 08/20/23 05:05 HIV 1&2 Antibody Non-reactive (Non-Reactiv) 08/20/23 05:05 Human Metapneumovir PCR Not detected (NOT DETECT) 08/18/23 09:35 Influenza A (H1) PCR Not detected (NOT DETECT) 08/18/23 09:35 Influ A (H1/09) PCR Not detected (NOT DETECT) 08/18/23 09:35 Influenza A (H3) PCR Not detected (NOT DETECT) 08/18/23 09:35 Influenza Type A (PCR) Not detected (NOT DETECT) 08/18/23 09:35 Influenza Type B (PCR) Not detected (NOT DETECT) 08/18/23 09:35 M. pneumoniae (PCR) Not detected (NOT DETECT) 08/18/23 09:35 Parainfluenza 1 (PCR) Not detected (NOT DETECT) 08/18/23 09:35 Parainfluenza 2 (PCR) Not detected (NOT DETECT) 08/18/23 09:35 Parainfluenza 3 (PCR) Not detected (NOT DETECT) 08/18/23 09:35 Parainfluenza 4 (PCR) Not detected (NOT DETECT) 08/18/23 09:35 RSV Type A (PCR) Not detected (NOT DETECT) 08/18/23 09:35 RSV Type B (PCR) Not detected (NOT DETECT) 08/18/23 09:35 Entero/Rhino (PCR) Not detected (NOT DETECT) 08/18/23 09:35 Rickettsia IgG Ab Not detected 08/18/23 16:31 Rickettsia IgM Ab Not detected 08/18/23 16:31 SARS-CoV-2 (PCR) Not detected (NOT DETECT) 08/18/23 09:35 MRSA (PCR) Not detected (NOT DETECTED) 08/22/23 20:40 A&P Assessment and plan (1) Nonsustained monomorphic ventricular tachycardia: Patient may be given the amiodarone 400 mg p.o. twice daily for a week followed by 400 mg daily (2) Generalized weakness: Seems to be responding to the current treatment. May continue on the current measures. (3) Hypotension: This could be multifactorial. Diuretic is on hold. Qualifiers: Hypotension type: unspecified hypotension type Qualified Code(s): I95.9 - Hypotension, unspecified (4) Elevated troponin: Most likely type II GA. Since the patient is stable with no chest pain, may continue on the current measures. (5) Pacemaker: Pacemaker function was found to be appropriate. Continue on the current management. (6) Cardiomyopathy: LV ejection fraction 40% by echocardiogram. No clinical evidence of any heart failure. Patient may be restarted on Entresto at a lower dose of 24/ twice daily. Qualifiers: Cardiomyopathy type: other Qualified Code(s): I42.8 - Other cardiomyopathies (7) Atrial fibrillation: On oral anticoagulation. This may be continued. Qualifiers: Atrial fibrillation type: persistent (not longstanding) Qualified Code(s): I48.19 - Other persistent atrial fibrillation (8) S/p TAVR (transcatheter aortic valve replacement), bioprosthetic: Valve function seems to be appropriate. (9) Coronary arteriosclerosis after coronary artery bypass grafting: Patient has no chest pain or any specific ischemic symptoms. May continue on the current medications. (10) Acute kidney injury superimposed on chronic kidney disease: The BUN/creatinine ratio is improving. Plan Other problems are As mentioned before. Is a patient continues to remain stable, may be discharge to jail tomorrow. His kidney function need to be closely monitored. Attestations Medical Necessity Statement*: Deferred to the primary Coding Level of Care Code 14178 Diagnoses Nonsustained monomorphic ventricular tachycardia I47.29 Generalized weakness R53.1 Hypotension, unspecified hypotension type I95.9 Hypotension type: unspecified hypotension type Elevated troponin R79.89 Pacemaker Z95.0 Other cardiomyopathy I42.8 Cardiomyopathy type: other Persistent atrial fibrillation I48.19 Atrial fibrillation type: persistent (not longstanding) S/p TAVR (transcatheter aortic valve replacement), bioprosthetic Z95.3 Coronary arteriosclerosis after coronary artery bypass grafting I25.810 Acute kidney injury superimposed on chronic kidney disease N17.9; N18.9
--- NOTE | 2023-08-24 19:54 | PM.PN ---
Subjective Subjective: He is still feeling achy but overall improving in strength. His blood pressure has been improving. Renal function is doing better. We discussed with him consideration of restarting Entresto which she would like to resume. He otherwise would like to continue if possible his supplements with potassium, melatonin, and after discharge also tart saab, vitamin C. Vitals/I&O/Wt Last Vital Signs Temp 97.9 F 08/24/23 16:00 Pulse 80 08/24/23 16:00 Resp 17 08/24/23 16:00 BP 130/78 08/24/23 16:00 Pulse Ox 97 08/24/23 16:00 O2 Del Method Room Air 08/24/23 16:00 O2 Flow Rate 2 08/22/23 09:00 08/24/23 08/24/23 08/24/23 06:59 14:59 22:59 Intake Total 600 / 600 250 / 850 Output Total 850 / 850 675 / 1525 Balance -250 / -250 -425 / -675 Weight last 48 hrs Weight 81.465 kg Weight 81.465 kg Physical Exam Narrative: He appears slightly stronger, minimally more energetic, conversant, and in slightly better spirits. Const: COMMON NORMALS: patient oriented x3 and alert GENERAL APPEARANCE: cooperative and frail appearing ORIENTATION/CONSCIOUSNESS: Yes awake OTHER: Pale HENMT: COMMON NORMALS: oropharynx normal Neck/C-Spine: COMMON NORMALS: no JVD Resp: COMMON NORMALS: normal respiratory effort and clear to auscultation bilaterally AUSCULTATION: clear to auscultation bilaterally Cardio: COMMON NORMALS: no JVD, regular rhythm, S1 normal heart sound present, S2 normal heart sound present and No murmurs present (Cardio) RHYTHM: regular rhythm HEART SOUNDS: S1 normal heart sound present and S2 normal heart sound present GI: COMMON NORMALS: Normal to inspection, nondistended, normoactive bowel sounds present, Soft to palpation and non-tender PALPATION: Yes Soft to palpation Extremity: COMMON NORMALS: no joint enlargement and no pedal edema OTHER: Generally weak, but 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 Up to 130/78 this evening. He would like to resume Entresto if possible and this now should be feasible with resolution of hypotension. Discussed with bin packer, agrees we may try to resume at lower dose, for now -. Restarted. Monitor blood pressures as discussed with him with risk of hypotension with this medication. If continues to do well we will try to wean midodrine. Discussed with case manager specialist- he is being approved for SNF. If he is doing well, tentatively possible discharge tomorrow. Reviewed CBC, CMP, vitals. Question of component of hypovolemia? Hold Bumex. Continue midodrine. Reassess blood pressures. Off Imdur Cortisol levels performed. Appropriate. Repeat lactate level normal. Concerns for UTI. Reviewed urine culture, negative. Follow-up blood culture, urine culture. Continue with IV antibiotics. Antibiotics were broadened to meropenem and vancomycin. Continue for now. He remains afebrile, with no recurrence of leukocytosis on review of CBC. Blood cultures, cultures remain -ve 08/17. Qualifiers: Hypotension type: unspecified hypotension type Qualified Code(s): I95.9 - Hypotension, unspecified (2) Weakness: With gradual improvement. Discussed with him continuation of prednisone, follow-up with primary provider, extended course of treatment with taper down to lowest effective dose. Consider follow-up with neurology. Continue to withhold statin for now. With clinical concern for possible PMR discussed with him and his friend regarding trial of prednisone, potential adverse effects. Monitor for risk of hyperglycemia, gastritis, additionally does appear to have possible mild delirium, perhaps ICU associated. Monitor for any worsening. Monitor blood pressure, although have been rather soft, doing better today. Discussed with them otherwise also follow-up with neurology, consideration of additional assessment, EMG, consideration of utility of muscle biopsy. Continue to also with also statin with a possibility of statin induced myopathy. He and his friend additionally requested if he could continue his home melatonin as needed for sleep instead of the medication he is receiving in the hospital. He has used it multiple times in the past without any issue. Discussed that would be okay if it can be brought into the hospital as we do not have it on the formulary. His friend is going to bring it for him. Discontinue trazodone if his medications brought in. Otherwise he is on sertraline, although this should not contribute to reported symptoms. Review of his other medications does not reveal any other obvious potential culprits. Discussed with case manager specialist. Arrangements also underway for rehabilitation at SNF. Generalized weakness, consideration of low output failure, but this appears to be less likely etiology per discussion with cardiology. Additionally with findings of elevated ESR, raising question of inflammatory condition, possibly PMR. Muscle enzyme not elevated. No stigmata of dermatomyositis. Trial of prednisone given persistent symptoms, ESR elevation, without symptoms of ongoing sepsis/infection. Monitor for risk of hyperglycemia, worsening BUN elevation. He will benefit from follow-up with neurology, EMG, possibly muscle biopsy. Additional considerations ICU myopathy, although symptoms have been preceding hospitalization. Other consideration may be given to statin induced myopathy, hold statin. Patient with global weakness, likely multifactorial. He has cardiomyopathy, renal dysfunction, rheumatoid arthritis, advancing age, concern for depression etc. Physical therapy consultation He would likely benefit from rehabilitation (3) Cardiomyopathy: Reviewed cardiology note. Resume Entresto at lower dose. Continue to hold Bumex. Reviewed cardiology note. Bumetanide held with concern for hypovolemia. Does have significant history of cardiomyopathy in the past. There is echocardiogram done within the last few years shows discrepancy in EF. EF until last echocardiogram was found to be around 35 to 40% but 1 done on July 27 showed to be 50%. Repeat echocardiogram yesterday shows an EF of 35 to 40% with dilated LA and global LV hypokinesia. Digoxin level stable. Hold off on digoxin for now. pacemaker interrogated Strict input output charting, daily weights. Rutherford catheterization. Fluid restriction to less than 1500 cc. Encouraged patient to maintain his oral hydration. No active chest pain. Continue with home dose of Plavix, Eliquis. Hold statins given transaminitis. Qualifiers: Cardiomyopathy type: other Qualified Code(s): I42.8 - Other cardiomyopathies (4) Nonsustained ventricular tachycardia: Reviewed potassium, magnesium. Supplement potassium. Repeat chemistry, magnesium. Seen on telemetry. No further episodes after starting amiodarone. Recurrent episode. Blood pressure in the soft so will not be able to give higher dose of metoprolol. Off metoprolol 12.5 mg twice daily. Continue with amiodarone drip as per protocol. Will switch over to 200 mg twice daily. Continue to monitor telemetry. Potassium around 4, magnesium around 2. (5) Acute kidney injury: Improving.reviewed potassium, bicarb, BUN, creatinine. Renal function continues to improve. Continue to hold bumetanide. Reviewed BUN, creatinine, potassium, kidney function with some improvement. Creatinine down to 1.4. Mild hypokalemia, requesting replacement. Most likely multifactorial in setting of cardiogenic shock in setting of recurrent nonsustained V. tach versus hypotension versus home use of diuretics, Entresto versus chronic outlet obstruction. CT abdomen pelvis done yesterday showed moderate bladder wall thickening with concerns for cystitis versus chronic outlet obstruction. Rutherford catheterization as above. Appreciate urine lites, urine creatinine, urine eosinophils. Diuretics as above today. Repeat BMP in afternoon. (6) Transaminitis: Reviewed transaminases. Requiring pressor support. Likely congestive transaminitis. Bilirubin alkaline phosphatase level normal. Hepatitis panel, respiratory viral panel negative. Check HIV. Appreciate CT abdomen pelvis. Given thrombocytopenia, acute kidney injury, worsening liver dysfunction pertinent to check tick panel. Sent out. Continue with oral doxycycline 100 mg twice daily. (7) Atrial fibrillation: Rate currently controlled. Continue with home dose of Eliquis. Digoxin level stable. Digoxin can discontinue for now. Amiodarone and metoprolol as above. Switch Eliquis to 2.5 mg twice daily given worsening creatinine now. Qualifiers: Atrial fibrillation type: persistent (not longstanding) Qualified Code(s): I48.19 - Other persistent atrial fibrillation (8) S/p TAVR (transcatheter aortic valve replacement), bioprosthetic: (9) Coronary arteriosclerosis after coronary artery bypass grafting: (10) Hyperglycemia: A1c 6.2. Hypoglycemia protocol. (11) Depression: Continue with new sertraline 25 mg daily (12) Thrombocytopenia: See above, repeat tomorrow (13) Atherosclerosis of coronary artery of [place] heart without angina pectoris: See notations above No active chest pain. Blood pressure soft. Continue with Plavix. Holding off on Imdur and statin for now. Qualifiers: Coronary Disease-Associated Artery/Lesion type: [place] artery Qualified Code(s): I25.10 - Atherosclerotic heart disease of [place] coronary artery without angina pectoris (14) Hypokalemia: Monitor regularly. Repeat BMP in afternoon. (15) Seropositive rheumatoid arthritis of multiple sites: Hold sulfasalazine secondary to renal dysfunction Plan Multiple other medical problems as outlined in past medical history No need to be on both of fubuxostat and allopurinol. Continue febuxostat. CODE STATUS: Discussed in detail with the patient with caregiver at bedside. He wants to remain Allow natural but is okay with medical management. Eliquis will suffice for DVT prophylaxis Cardiac carb consistent diet Protonix for PUD prophylaxis Discharge plan: Given advanced age, significant deconditioning patient would benefit from placement to SNF. He is agreeable. Await PT and OT evaluation. Discussed with case manager specialist. Attestations Medical Necessity Statement*: Continue admission for assessment of management of generalized weakness, JAMILA, transaminitis, encephalopathy. and High MDM includes amount and/or complexity of data reviewed/ordered [ resulted lab(s)/test(s), ordered lab(s)/test(s) and other healthcare professional discussion] and described risk of complication, morbidity or mortality of management as documented Diagnoses Hypotension, unspecified hypotension type I95.9 Hypotension type: unspecified hypotension type Weakness R53.1 Other cardiomyopathy I42.8 Cardiomyopathy type: other Nonsustained ventricular tachycardia I47.29 Acute kidney injury N17.9 Transaminitis R74.01 Persistent atrial fibrillation I48.19 Atrial fibrillation type: persistent (not longstanding) S/p TAVR (transcatheter aortic valve replacement), bioprosthetic Z95.3 Coronary arteriosclerosis after coronary artery bypass grafting I25.810 Hyperglycemia R73.9 Depression F32.A Thrombocytopenia D69.6 Atherosclerosis of [place] coronary artery of [place] heart without angina pectoris I25.10 Coronary Disease-Associated Artery/Lesion type: [place] artery Hypokalemia E87.6 Seropositive rheumatoid arthritis of multiple sites M05.79
[2023-08-24] MEDS: sacubitril/valsartan 24-26 mg Tablet 1 EACH PO (21:27)
--- NOTE | 2023-08-24 21:41 | PC.NURSE ---
Potassium supplement and Melatonin present on patients bedside table. Patient stated that MD okayed for him to resume taking both. Patient educated on risks for interaction between medication and supplements. Asked patient if he would be agreeable to put both potassium and melatonin in our Pyxis, in medication room. Patient refusing and would like them to remain in room. Unknown dosing or if patient has taken supplements at this time.
[2023-08-25] VITALS: BP 114/70; PULSE 81; RESP 26; TEMP 36.7; O2SAT 92
[2023-08-25 04:00] VITALS: BP 95/65; PULSE 81; RESP 25; TEMP 36.7; O2SAT 96
[2023-08-25 05:16] LABS: Basophils % 0.3 %; Eosinophils % 0.4 %; Hematocrit 34.8 % (37-53); Lymphocytes % 30.1 %; Mean Corpuscular HGB Conc 33.6 g/dL (30-55); Mean Corpuscular Hemoglobin 30.9 pg (27-33); Mean Corpuscular Volume 91.8 fl (82-101); Mean Platelet Volume 9.8 fL (7.4-10.4); Monocytes # 0.9 10^3/uL (0.2-0.9); Monocytes % 13.3 %; Neutrophils % 55.5 %; Nucleated Red Blood Cells % 0 %; Platelet Count 262 10^3/cmm (157-399); Red Blood Count 3.79 10^6/uL (3.85-5.65); Red Cell Distribution Width 14.1 % (12.1-15.1); White Blood Count 6.68 10^3/uL (3.29-11.43)
[2023-08-25] MEDS: meropenem 1,000 mg SDV 1000 MG IVP (05:54)
[2023-08-25 06:00] VITALS: PULSE 82
[2023-08-25 06:13] LABS: Alanine Aminotransferase 172 U/L (0-41); Albumin Level 3.1 g/dL (3.5-5.2); Alkaline Phosphatase 66 U/L (40-130); Aspartate Amino Transferase 94 U/L (0-40); Blood Urea Nitrogen 25 mg/dL (8-23); Calcium 8.9 mg/dL (8.5-10.5); Carbon Dioxide 25 mmol/L (22-29); Chloride 100 mmol/L (98-107); Creatinine Clr Calc Pharmacy 68.4991; Globulin 2.5 g/dL (1.3-4.6); Glucose 124 mg/dL (65-115); Osmolality Calculated 288 mOsm/kg (285-295); Sodium 136 mmol/L (136-145); Total Bilirubin 0.6 mg/dL (0.15-1.2); Total Protein 5.6 g/dL (6.6-8.7)
[2023-08-25 08:00] VITALS: BP 113/70; PULSE 80; TEMP 36.6; O2SAT 94
[2023-08-25] MEDS: predniSONE 20 mg Tablet PO (08:58)
[2023-08-25] MEDS: doxycycline 100 mg Tablet PO (08:58)
[2023-08-25] MEDS: docusate sodium 100 mg Capsule PO (08:58)
[2023-08-25] MEDS: midodrine 5 mg TABLET 10 MG PO (08:58)
[2023-08-25] MEDS: sacubitril/valsartan 24-26 mg Tablet 1 EACH PO (08:58)
[2023-08-25] MEDS: amiodarone 200 mg Tablet 400 MG PO (08:59)
[2023-08-25] MEDS: clopidogrel 75 mg Tablet PO (08:59)
[2023-08-25] MEDS: apixaban 5 mg Tablet 2.5 MG PO (08:59)
[2023-08-25] MEDS: sertraline 50 mg Tablet 25 MG PO (08:59)
[2023-08-25] MEDS: pantoprazole DR 40 mg Tablet PO (08:59)
[2023-08-25 09:53] LABS: SARS Covid-2 Antigen negative (Negative)
--- NOTE | 2023-08-25 09:55 | PC.SOCIAL ---
IMM Update pg 2 of IMM updated and reviewed w/ patient. Copy provided and copy dated, initialed and placed in chart.
[2023-08-25 11:58] VITALS: BP 120/67; PULSE 80; RESP 24; TEMP 36.6
[2023-08-25 12:01] LABS: Vancomycin Trough 9.8 ug/mL (10-15)
--- NOTE | 2023-08-25 12:03 | PM.PN ---
Subjective Subjective: Slowly improving. Ready to go to DC. Cognitively back to normal. Vitals/I&O/Wt Last Vital Signs Temp 97.8 F 08/25/23 11:58 Pulse 80 08/25/23 11:58 Resp 24 H 08/25/23 11:58 BP 120/67 08/25/23 11:58 Pulse Ox 94 08/25/23 08:00 O2 Del Method Room Air 08/25/23 08:00 O2 Flow Rate 2 08/22/23 09:00 08/24/23 08/25/23 08/25/23 22:59 06:59 14:59 Intake Total 350 / 950 120 / 120 Output Total 975 / 1825 Balance -625 / -875 120 / 120 Weight last 48 hrs Weight 188 lb Weight 179 lb 9.6 oz Physical Exam Narrative: Comfortable HENMT: COMMON NORMALS: normocephalic, atraumatic, hearing grossly normal bilaterally, external ears normal, EAC's normal, TM's normal bilaterally, Normal external nose present, Normal nasal mucous membranes and turbinates present, moist oral mucous membranes, oropharynx normal, dentition normal and gingiva normal HEAD & SCALP: normocephalic and atraumatic NOSE: Normal external nose present and Normal nasal mucous membranes and turbinates present EXTERNAL EAR: Yes external ears normal EXTERNAL AUDITORY CANAL: EAC's normal TYMPANIC MEMBRANE: TM's normal bilaterally Neck/C-Spine: COMMON NORMALS: no JVD Chest: COMMONS NORMALS: normal inspection of the chest, normal palpation of entire chest wall, normal inspection of the breasts and normal palpation of the breasts Cardio: COMMON NORMALS: no JVD, regular rate, regular rhythm, S1 normal heart sound present, S2 normal heart sound present, No gallops present (Cardio), No clicks present (Cardio), No murmurs present (Cardio), No rub (Cardio) and Peripheral pulses 2+ throughout RATE: regular rate RHYTHM: regular rhythm HEART SOUNDS: S1 normal heart sound present and S2 normal heart sound present PERIPHERAL PULSES: Peripheral pulses 2+ throughout GI: COMMON NORMALS: Normal to inspection, nondistended, normoactive bowel sounds present, Soft to palpation, non-tender, No hepatosplenomegaly present, no masses and no bruits PALPATION: Yes Soft to palpation and Yes No hepatosplenomegaly present Urinary Catheter Management: [place]: Cath Placed During This Visit: yes Reason for Continuing Indwelling Catheter: Accurate Measurement of Urinary Output in Critically Ill Patients Urinary Catheter Date of Insertion: 08/19/23 Urinary Catheter Time of Insertion: 12:00 Data 08/25/23 04:30 08/25/23 04:30 A&P Assessment and plan (1) Essential hypertension: (2) Mixed hyperlipidemia: (3) Pacemaker: (4) Cardiomyopathy: Qualifiers: Cardiomyopathy type: other Qualified Code(s): I42.8 - Other cardiomyopathies (5) Coronary arteriosclerosis after coronary artery bypass grafting: (6) Systolic and diastolic CHF, chronic: (7) Atrial fibrillation: Qualifiers: Atrial fibrillation type: persistent (not longstanding) Qualified Code(s): I48.19 - Other persistent atrial fibrillation (8) S/p TAVR (transcatheter aortic valve replacement), bioprosthetic: (9) Atherosclerosis of coronary artery of [place] heart without angina pectoris: Qualifiers: Coronary Disease-Associated Artery/Lesion type: [place] artery Qualified Code(s): I25.10 - Atherosclerotic heart disease of [place] coronary artery without angina pectoris (10) PAD (peripheral artery disease): (11) Thrombocytopenia: (12) Nonsustained ventricular tachycardia: (13) Elevated troponin: Plan To DC today Attestations Medical Necessity Statement*: [place] today and Moderate Time for a total of 35 minutes, includes reviewing past or interval history, examining/interviewing patient, counseling patient/family/other support, updating patient/family/other support, discussing plan of care with staff, communicating with other healthcare providers and documenting encounter Diagnoses Essential hypertension I10 Mixed hyperlipidemia E78.2 Pacemaker Z95.0 Other cardiomyopathy I42.8 Cardiomyopathy type: other Coronary arteriosclerosis after coronary artery bypass grafting I25.810 Systolic and diastolic CHF, chronic I50.42 Persistent atrial fibrillation I48.19 Atrial fibrillation type: persistent (not longstanding) S/p TAVR (transcatheter aortic valve replacement), bioprosthetic Z95.3 Atherosclerosis of [place] coronary artery of [place] heart without angina pectoris I25.10 Coronary Disease-Associated Artery/Lesion type: [place] artery PAD (peripheral artery disease) I73.9 Thrombocytopenia D69.6 Nonsustained ventricular tachycardia I47.29 Elevated troponin R79.89
[2023-08-25] MEDS: vancomycin 1,250 MG/250 ML PIGGYBACK 150 MG IV (12:38)
--- NOTE | 2023-08-25 13:07 | P.DS_ITS ---
Discharge Providers Date of Admission: 08/19/23 11:05 Date of Discharge: August 25, 2023 Attending Provider at Admission: Tom Nj MD Attending Provider at Discharge: Jack Jacobo Primary Care Provider: Destin Chung MD Diagnoses at Discharge Discharge Diagnosis (1) Essential hypertension: Status: Acute (2) Mixed hyperlipidemia: Status: Acute Permanent problem details: last lipid panel 2019: Cholesterol 93, triglycerides 78, LDL 55. (3) Pacemaker: Status: Acute Permanent problem details: Dual-chamber (4) Cardiomyopathy: Status: Acute Qualifiers: Cardiomyopathy type: other Qualified Code(s): I42.8 - Other cardiomyopathies Permanent problem details: LVEF has decreased from 45% to 35% by echocardiogram. (5) Coronary arteriosclerosis after coronary artery bypass grafting: Status: Acute Permanent problem details: CABG x2 (OLSON to LAD and SVG to OM, 05/08/2008) (6) Systolic and diastolic CHF, chronic: Status: Acute Permanent problem details: Echocardiogram 02/07/2019: LVEF 35%, grade 2/4 diastolic dysfunction (7) Atrial fibrillation: Status: Acute Qualifiers: Atrial fibrillation type: persistent (not longstanding) Qualified Code(s): I48.19 - Other persistent atrial fibrillation (8) S/p TAVR (transcatheter aortic valve replacement), bioprosthetic: Status: Acute (9) Atherosclerosis of coronary artery of tribal heart without angina pectoris: Status: Acute Qualifiers: Coronary Disease-Associated Artery/Lesion type: tribal artery Qualified Code(s): I25.10 - Atherosclerotic heart disease of tribal coronary artery without angina pectoris (10) PAD (peripheral artery disease): Status: Acute (11) Thrombocytopenia: Status: Acute (12) Nonsustained ventricular tachycardia: Status: Acute (13) Elevated troponin: Status: Acute Reason for Visit Reason for Visit: fall, weakness Hospital Course Hospital Course Pleasant 83-year-old gentleman with history of seropositive RA, CAD, congestive heart failure, ejection fraction 35%, pacemaker, CKD was admitted after presenting due to generalized weakness, presentation with JAMILA, transaminitis, lactic acidosis. Additionally with findings of depression, was started on Zoloft. Treated with ceftriaxone for urinary tract infection. Was given doxycycline with possibility of tickborne infection, tick panel is still pending. Treated with Bumex due to cardiomyopathy with component of CHF initially. During hospitalization also noted with frequent episodes of nonsustained V. tach for which he was started on amiodarone drip later switched to oral amnio. Eliquis for atrial fibrillation dose was decreased with JAMILA. Metoprolol had to be discontinued due to soft blood pressures. Started on midodrine. Received transient IV hydration. With worsening JAMILA, transaminitis, soft blood pressures, consideration of cardiogenic shock, was also seen by cardiology. Reassessment echocardiogram, ejection fraction 35 to 40%, dilated left atrium, moderately reduced LV systolic function with global hypokinesis. Not thought to be primarily responsible for his symptoms with more minor component as per cardiology assessment. Additionally diffuse body aches, elevated CRP, mild transient leukocytosis, was broadened on antibiotics with possibility of infection, initial urine culture unrevealing. Blood cultures remain negative. With there is a leukocytosis, afebrile, infection less likely. Continuing only on doxycycline at discharge pending final tick panel results. With body aches, elevated ESR, muscle weakness, concern for polymyalgia rheu matica started on prednisone 20 mg daily. With cautious fluid challenge, discontinuation of Bumex, started prednisone, at the same time on broad-spectrum antibiotics, he showed improvement with blood pressures improving gradually weaned off pressor support, was able to transfer to [facility], with gradually improving strength although still generally weak. As there is no evidence of ongoing infection antibiotics are discontinued apart from doxycycline until tick panel is back. We discussed with him continuation of prednisone and follow-up with primary provider, neurology with regards to generalized weakness, suspected PMR, possibly other myopathy. Due to this he is asked to also not continue his statin at current time until further recovery, consideration may be given to rechallenge at a later date after recovery. He is JAMILA did resolve, but please follow-up his renal function. He is asked to avoid any NSAIDs including topical diclofenac. Digoxin for now is not continued. He was able to resume half dose of his Entresto which she tolerated although blood pressures are on the softer side, unable to resume full dose at the moment and Imdur and spironolactone are not resumed. Afternoon dose of Lasix is stopped for now, he is to take morning dose only in case of recurrence and worsening edema. If his blood pressures continue to improve, should be able to wean off midodrine. He is asked to also follow-up with cardiology. Please also reassess depression, sertraline therapy. While showing some incremental daily improvement still significantly deconditioned and would benefit from rehabilitation at SNF where he has been kindly accepted. He should maintain soft and bite sized consistent carbohydrate diet. Physical Exam Narrative: He appears slightly stronger, minimally more energetic, conversant, and in slightly better spirits. Const: COMMON NORMALS: patient oriented x3 and alert GENERAL APPEARANCE: cooperative and frail appearing ORIENTATION/CONSCIOUSNESS: Yes awake OTHER: Pale HENMT: COMMON NORMALS: oropharynx normal Neck/C-Spine: COMMON NORMALS: no JVD Resp: COMMON NORMALS: normal respiratory effort and clear to auscultation bilaterally AUSCULTATION: clear to auscultation bilaterally Cardio: COMMON NORMALS: no JVD, regular rhythm, S1 normal heart sound present, S2 normal heart sound present and No murmurs present (Cardio) RHYTHM: regular rhythm HEART SOUNDS: S1 normal heart sound present and S2 normal heart sound present GI: COMMON NORMALS: Normal to inspection, nondistended, normoactive bowel sounds present, Soft to palpation and non-tender PALPATION: Yes Soft to palpation Extremity: COMMON NORMALS: no joint enlargement and no pedal edema OTHER: Generally weak, but does have good hospital 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 Mild mottling lower extremities. No cyanosis. Urinary Catheter Management: [place]: Cath Placed During This Visit: yes Reason for Continuing Indwelling Catheter: Accurate Measurement of Urinary Output in Critically Ill Patients Urinary Catheter Date of Insertion: 08/19/23 Urinary Catheter Time of Insertion: 12:00 Discharge Data Studies Completed and Pending Completed Studies During Hospitalization Category Date Time Status CT abdomen renal stone [CT kidney stone [id number]] Routine Cat Scan 08/18/23 14:[address] head wo con* [id number] Routine Cat Scan 08/18/23 15:09 Completed XR chest 1V portable [id number] Stat Exams 08/18/23 07:34 Completed XR thoracic spine 2V [id number] Routine Exams 08/18/23 15:09 Completed CV. echo limited [id number] Routine Ultrasound 08/19/23 11:03 Completed Pending at discharge Category Date Time Status Immunofixation Serum Routine Lab 08/22/23 02:50 Received Tick Panel Routine Lab 08/18/23 16:31 Results Radiology Impressions Chest X-Ray 08/18/23 07:34 IMPRESSION: 1. No acute findings. Abdomen/Pelvis CT 08/18/23 14:47 IMPRESSION: 1. Fluid within the small bowel and colon without evidence of bowel wall thickening. This may reflect viral gastroenteritis in the appropriate clinical situation. 2. Diffuse, moderate bladder wall thickening with a trabeculated appearance of the bladder wall. In the correct clinical setting, this may suggest cystitis. Recommend correlation with laboratory findings. Alternatively, this may be secondary to chronic outlet obstruction. 3. Stable calcifications in the vas deferens. Findings raise suspicion for diabetes mellitus. Recommend clinical correlation. 4. Scattered diverticula in the colon. No evidence for diverticulitis. 5. Incidental/nonacute findings are listed in the report. Head CT 08/18/23 15:09 IMPRESSION: 1. No acute abnormality of the brain. 2. Stable moderate atrophy of the brain parenchyma. 3. Stable moderate chronic white matter microangiopathic change. 4. Incidental/nonacute findings are listed in the report. Thoracic Spine X-Ray 08/18/23 15:09 IMPRESSION: 1. No acute fracture of the thoracic spine. CT scan would be recommended if there is continuing clinical concern for fracture. 2. Stable multilevel degenerative changes of varying severity in the visualized spine. 3. Incidental/nonacute findings are listed in the report. Laboratory Results WBC 6.68 10^3/uL (3.29-11.43) 08/25/23 04:30 Corrected WBC Cancelled 08/21/23 05:05 RBC 3.79 10^6/uL (3.85-5.65) L 08/25/23 04:30 Hgb 11.70 g/dL (11.27-16.99) 08/25/23 04:30 Hct 34.8 % (37-53) L 08/25/23 04:30 MCV 91.8 fl (82-101) 08/25/23 04:30 MCH 30.9 pg (27-33) 08/25/23 04:30 MCHC 33.6 g/dL (30-55) 08/25/23 04:30 RDW 14.1 % (12.1-15.1) 08/25/23 04:30 Plt Count 262 10^3/cmm (157-399) 08/25/23 04:30 MPV 9.8 fL (7.4-10.4) 08/25/23 04:30 Gran % Cancelled 08/21/23 05:05 Neut % (Auto) 55.5 % 08/25/23 04:30 Lymph % (Auto) 30.1 % 08/25/23 04:30 [place] % (Auto) 13.3 % 08/25/23 04:30 Eos % (Auto) 0.4 % 08/25/23 04:30 Baso % (Auto) 0.3 % 08/25/23 04:30 Neut # (Auto) 3.70 10^3/uL (1.8-7.7) 08/25/23 04:30 Lymph # (Auto) 2.0 10^3/uL (0.8-4.8) 08/25/23 04:30 [place] # (Auto) 0.9 10^3/uL (0.2-0.9) 08/25/23 04:30 Eos # (Auto) 0.0 10^3/uL (0.0-0.8) 08/25/23 04:30 Baso # (Auto) 0.0 10^3/uL (0.0-0.1) 08/25/23 04:30 Absolute Gran (auto) Cancelled 08/21/23 05:05 Nucleated RBC % (auto) 0 % 08/25/23 04:30 Nucleated RBCs # 0.0 /100WBC 08/25/23 04:30 Specimen Type Arterial 08/18/23 07:49 Sample Site Brachial, left 08/18/23 07:49 ABG pH 7.50 (7.35-7.45) H 08/18/23 07:49 ABG pCO2 30.5 mmHg (35-45) L 08/18/23 07:49 ABG pO2 75.2 mmHg (80.0-100.0) L 08/18/23 07:49 ABG PO2/FiO2 Ratio 235 08/18/23 07:49 ABG HCO3 23.5 mmol/L (22-26) 08/18/23 07:49 ABG O2 Saturation 96.0 08/18/23 07:49 ABG Base Excess 1.0 mmol/L (-2.0-2.0) 08/18/23 07:49 Tony Test Pos 08/18/23 07:49 A-a O2 Gradient 14.9 mmHg (5-10) H 08/18/23 07:49 Hematocrit 41.7 % (42-52) L 08/18/23 07:49 Hgb O2 Saturation 95.1 % (95-100) 08/18/23 07:49 Carboxyhemoglobin 0.8 %THgb (0.4-20.1) 08/18/23 07:49 Methemoglobin 0.1 % (0.4-1.5) L 08/18/23 07:49 Total Hemoglobin 13.6 g/dL (14-18) L 08/18/23 07:49 Sodium 135.0 mmol/L (131-143) 08/18/23 07:49 Potassium 3.2 mmol/L (3.5-5.0) L 08/18/23 07:49 Glucose 190.0 mg/dL (70-115) H 08/18/23 07:49 Ionized Calcium 1.2 mmol/L (1.1-1.4) 08/18/23 07:49 O2 Delivery Device Nc 08/18/23 07:49 O2 Liters/Min 3.0 % 08/18/23 07:49 FiO2 32.0 % 08/18/23 07:49 Bond Underwriter ID Cak 08/18/23 07:49 Sodium 136 mmol/L (136-145) 08/25/23 04:30 Potassium 4.0 mmol/L (3.5-5.1) 08/25/23 04:30 Chloride 100 mmol/L (98-107) 08/25/23 04:30 Carbon Dioxide 25 mmol/L (22-29) 08/25/23 04:30 Anion Gap 15.0 (5-19) 08/25/23 04:30 BUN 25 mg/dL (8-23) H 08/25/23 04:30 Creatinine 0.9 mg/dL (0.7-1.2) 08/25/23 04:30 GFR Calculation Not Reportable 08/25/23 04:30 Glucose 124 mg/dL (65-115) H 08/25/23 04:30 POC Glucose 202 mg/dL (70-110) H 08/23/23 06:33 Estimat Average Glucose 131 08/18/23 07:42 Hemoglobin A1c 6.2 % (4.0-6.0) H 08/18/23 07:42 Calculated Osmolality 288 mOsm/kg (285-295) 08/25/23 04:30 Lactic Acid 1.8 mmol/L (0.5-2.2) 08/20/23 17:11 Lactic Acid (Sepsis) 2.8 mmol/L (0.5-2.2) H 08/18/23 09:52 Lactate 2.2 mmol/L (0.5-2.2) 08/19/23 11:30 Calcium 8.9 mg/dL (8.5-10.5) 08/25/23 04:30 Magnesium 2.5 mg/dL (1.7-2.3) H 08/22/23 02:50 Iron 117 ug/dL (59-158) 08/19/23 03:28 TIBC 201 mcg/dl 08/19/23 03:28 % Saturation 58.2 % (20-50) H 08/19/23 03:28 Unsat Iron Binding 84 ug/dL (112-347) L 08/19/23 03:28 Total Bilirubin 0.6 mg/dL (0.15-1.2) 08/25/23 04:30 GGT 53 U/L (8-61) 08/20/23 05:05 AST 94 U/L (0-40) H 08/25/23 04:30 ALT 172 U/L (0-41) H 08/25/23 04:30 Alkaline Phosphatase 66 U/L (40-130) 08/25/23 04:30 Lactate Dehydrogenase 669 U/L (135-225) H 08/20/23 05:05 Creatine Kinase 179 U/L (39-308) 08/18/23 07:42 Troponin T Baseline 57 ng/L (0-15) H 08/18/23 07:42 Troponin T 120 Minute 58.21 ng/L (0-15) H 08/18/23 09:52 Delta Troponin T 1.21 ABS# (0-10) 08/18/23 09:52 Troponin T Hi Sens 6Hr 58.47 ng/L (0-15) H 08/18/23 13:19 Troponin T Hi Sens 6Hr Delta 1.47 ng/L (0-12) 08/18/23 13:19 C-Reactive Protein 92.4 mg/L (0.0-4.9) H 08/18/23 09:52 NT-Pro-B Natriuret Pep 3647 pg/mL (0-450) H 08/18/23 07:42 Total Protein 5.6 g/dL (6.6-8.7) L 08/25/23 04:30 Albumin 3.1 g/dL (3.5-5.2) L 08/25/23 04:30 Globulin 2.5 g/dL (1.3-4.6) 08/25/23 04:30 Aonyt-2-Lwoocujml 0.4 g/dL (0.2-0.3) H 08/18/23 13:19 Erqhh-4-Khjsejlox 0.8 g/dL (0.5-0.9) 08/18/23 13:19 Yzzs-9-Iprzlaiw 0.4 g/dL (0.4-0.6) 08/18/23 13:19 Jhgq-0-Gqgsmmkk 0.4 g/dL (0.2-0.5) 08/18/23 13:19 Gamma Globulins 1.3 g/dL (0.8-1.7) 08/18/23 13:19 Abnorm Protein Band 1 0.7 g/dL (NONE DETECTED) H 08/18/23 13:19 Triglycerides 230 mg/dL (0-150) H 08/20/23 05:05 Cholesterol 59 mg/dL (0-200) 08/20/23 05:05 LDL Cholesterol, Calc 2 mg/dL (50-129) L 08/20/23 05:05 Total VLDL Cholesterol 46 mg/dL (0-30) H 08/20/23 05:05 HDL Cholesterol 11 mg/dL (60-100) L 08/20/23 05:05 Cholesterol/HDL Ratio 5.36 mg/dL (1.0-5.00) H 08/20/23 05:05 Vitamin B12 775 pg/mL (232-1245) 08/18/23 07:42 Folate 4.6 ng/mL (4.5-32.2) 08/20/23 05:05 Procalcitonin 0.60 ng/mL (0-0.5) H 08/18/23 09:52 Random Cortisol 36.33 ug/dL (2.47-19.5) H 08/19/23 03:28 Urine Color Yellow (Yellow) 08/18/23 09:02 Urine Appearance Cloudy (CLEAR) A 08/18/23 09:02 Urine pH 5 (5-7) 08/18/23 09:02 Ur Specific [place] 1.015 (1.005-1.030) 08/18/23 09:02 Urine Protein 1+ (Negative) H 08/18/23 09:02 Urine Glucose (UA) 4+ (Normal) H 08/18/23 09:02 Urine Ketones Negative (Negative) 08/18/23 09:02 Urine Blood 3+ (Negative) H 08/18/23 09:02 Urine Nitrate Negative (Negative) 08/18/23 09:02 Urine Bilirubin Neg (Negative) 08/18/23 09:02 Urine Urobilinogen Neg mg/dL (Negative) 08/18/23 09:02 Ur Leukocyte Esterase Negative (Negative) 08/18/23 09:02 Urine RBC 40-50 /hpf (0-2) H 08/18/23 09:02 Urine WBC 0-4 /hpf (0-5) H 08/18/23 09:02 Ur Eosinophil Smear 0 (0-0) 08/19/23 12:45 Ur Squamous Epith Cells 0-4 /hpf (0-5) H 08/18/23 09:02 Amorphous Sediment 2+ /hpf 08/18/23 09:02 Urine Bacteria 2+ /hpf (NONE) H 08/18/23 09:02 Coarse Granular Casts 10-15 /lpf H 08/18/23 09:02 Urine Mucus Trace /hpf 08/18/23 09:02 Urine Eosinophils No eosinophils seen 08/19/23 12:45 Ur Random Sodium 15 mmol/L 08/19/23 12:45 Ur Random Potassium 40 mmol/L 08/19/23 12:45 Ur Random Chloride 15 mmol/L 08/19/23 12:45 Urine Creatinine 104 mg/dL (39-259) 08/19/23 12:45 U Abnormal Prot Band 2 0.1 g/dL (NONE DETECTED) H 08/18/23 13:19 U Abnormal Prot Band 3 Not Reportable 08/18/23 13:19 Vancomycin Trough 9.8 ug/mL (10-15) L 08/25/23 11:38 Digoxin 1.1 ng/mL (0.6-1.2) 08/18/23 07:42 Pro Electrophoresis Int See note 08/18/23 13:19 Adenovirus (PCR) Not detected (NOT DETECT) 08/18/23 09:35 Lyme Ab (Western Blot) <0.90 index 08/18/23 16:31 C. pneumoniae DNA (PCR) Not detected (NOT DETECT) 08/18/23 09:35 Coronavirus 229E (PCR) Not detected (NOT DETECT) 08/18/23 09:35 Hepatitis A IgM Ab Non-reactive (Nonreactive) 08/18/23 13:19 Hep Bs Antigen Non-reactive (Nonreactive) 08/18/23 13:19 Hep B Core IgM Ab Non-reactive (Nonreactive) 08/18/23 13:19 Hepatitis C Antibody Non-reactive (Nonreactive) 08/18/23 13:19 HIV 1&2 Ab & HIV 1 Ag Non-reactive (Non-Reactiv) 08/20/23 05:05 HIV 1&2 Antibody Non-reactive (Non-Reactiv) 08/20/23 05:05 Human Metapneumovir PCR Not detected (NOT DETECT) 08/18/23 09:35 Influenza A (H1) PCR Not detected (NOT DETECT) 08/18/23 09:35 Influ A (H1/09) PCR Not detected (NOT DETECT) 08/18/23 09:35 Influenza A (H3) PCR Not detected (NOT DETECT) 08/18/23 09:35 Influenza Type A (PCR) Not detected (NOT DETECT) 08/18/23 09:35 Influenza Type B (PCR) Not detected (NOT DETECT) 08/18/23 09:35 M. pneumoniae (PCR) Not detected (NOT DETECT) 08/18/23 09:35 Parainfluenza 1 (PCR) Not detected (NOT DETECT) 08/18/23 09:35 Parainfluenza 2 (PCR) Not detected (NOT DETECT) 08/18/23 09:35 Parainfluenza 3 (PCR) Not detected (NOT DETECT) 08/18/23 09:35 Parainfluenza 4 (PCR) Not detected (NOT DETECT) 08/18/23 09:35 RSV Type A (PCR) Not detected (NOT DETECT) 08/18/23 09:35 RSV Type B (PCR) Not detected (NOT DETECT) 08/18/23 09:35 Entero/Rhino (PCR) Not detected (NOT DETECT) 08/18/23 09:35 Rickettsia IgG Ab Not detected 08/18/23 16:31 Rickettsia IgM Ab Not detected 08/18/23 16:31 SARS-CoV-2 (PCR) Not detected (NOT DETECT) 08/18/23 09:35 SARS-CoV-2 Ag (Rapid) negative (Negative) 08/25/23 09:10 MRSA (PCR) Not detected (NOT DETECTED) 08/22/23 20:40 Vitals Last Vital Signs Temp 97.8 F 08/25/23 11:58 Pulse 80 08/25/23 11:58 Resp 24 H 08/25/23 11:58 BP 120/67 08/25/23 11:58 Pulse Ox 94 08/25/23 08:00 O2 Del Method Room Air 08/25/23 08:00 O2 Flow Rate 2 08/22/23 09:00 Discharge Plan Discharge Patient Disposition: Xfer SNF Condition: Stable Prescriptions: New prednisone 20 mg Tablet 20 mg PO DAILY Qty: 30 0RF midodrine 5 mg Tablet 10 mg PO TID Qty: 90 0RF doxycycline monohydrate 100 mg Tablet 100 mg PO BID 7 Days Qty: 14 0RF docusate sodium 100 mg Capsule 100 mg PO BID Qty: 30 0RF sertraline 50 mg Tablet 25 mg PO DAILY Qty: 90 0RF Pacerone 200 mg Tablet 400 mg PO BID Qty: 90 0RF Continued Tart Kumar Extract 1,000 mg capsule 1,000 mg PO DAILY lutein 40 mg capsule 40 mg PO BID glucosamine HCl 1,500 mg tablet 1,500 mg PO DAILY ferrous gluconate 324 mg (37.5 mg iron) tablet 324 mg PO DAILY colchicine 0.6 mg tablet 0.6 mg PO DAILY Qty: 90 1RF febuxostat 40 mg tablet 80 mg PO DAILY Qty: 180 1RF Rx Instructions: 340B please, insurance denied clopidogrel [Plavix] 75 mg tablet 75 mg PO DAILY Qty: 90 3RF Hold Instructions: Resume on 11/19/21. Eliquis 5 mg tablet 5 mg PO BID Qty: 180 3RF Hold Instructions: Resume on 11/18/21. May start taking this tomorrow evening Mag 64 64 mg tablet,delayed release (DR/EC) 64 mg PO BID Qty: 180 3RF Entresto 49-51 mg tablet 0.5 tab PO BID Qty: 90 3RF Rx Instructions: *Reduced dose: Adverse reaction to 97/103mg (lightheadedness) ascorbic acid (vitamin C) [Vitamin C] 500 mg Tablet 500 mg PO DAILY omega-3 fatty acids 1,000 mg Capsule 1,000 mg PO BID hydrocodone-acetaminophen 5-325 mg tablet 1 tab PO BID PRN (Reason: Pain) vitamin B complex Tablet 1 tab PO DAILY multivit,Ca,bnzm-AG-yzgdqk-lut [id number] oz-uys-zvt-mcg Tablet 1 tab PO DAILY potassium citrate 99 mg Capsule 99 mg PO BID sulfasalazine 500 mg tablet 1,000 mg PO BID pantoprazole 40 mg tablet,delayed release (DR/EC) 40 mg PO DAILY Changed furosemide 40 mg tablet 40 mg PO QAM PRN (Reason: Edema) Qty: 1 0RF Rx Instructions: Take only as needed in case of accumulation of edema. potassium chloride 10 mEq tablet extended release 10 meq PO DAILY PRN (Reason: With Lasix) Qty: 90 3RF Discontinued diclofenac sodium 1 % gel 2 g topical QID Qty: 100 2RF Rx Instructions: apply to affected area as needed digoxin 125 mcg (0.125 mg) tablet 125 mcg PO DAILY Qty: 90 3RF spironolactone 25 mg tablet 25 mg PO DAILY Qty: 90 3RF rosuvastatin 20 mg tablet 20 mg PO BEDTIME isosorbide mononitrate 30 mg tablet extended release 24 hr 30 mg PO DAILY furosemide 20 mg tablet 20 mg PO .IN AFTERNOON Discharge Orders: Discharge Order (Routine); Ordered 08/25/23 Ordered By: Jack Jacobo Referrals: [facility] [Provider Group] (PMR vs myopathy) Hamzah Montes MD [Physician] - 1 week Destin Chung MD [Primary Care Provider] - 4-7 days Discharge Diet: As Directed and Diabetic Patient Instructions: Doxycycline (By mouth) (Acticlate, Adoxa, Avidoxy, Monodox, Doryx), Prednisone (By mouth) (predniSONE Intensol, Prednicot, Deltasone, Migel), Amiodarone (By mouth) (Cordarone, Pacerone), Laxative, Stool Softeners (By mouth) (Doculax, Colace, Colace Clear, DSS), Sertraline (By mouth) (Zoloft), Midodrine (By mouth), Prednisolone (By mouth), Opioid Safety, Pain Management Activity Restrictions/Additional Instructions: Folllow up with your primary provider and cardiology regarding cardiomyopathy, risk of congestive heart failure. Continue amiodarone 400mg twice daily, then switch to 200mg twice daily after runs of fast heart rhythm. Follow up with cardiology. 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 Have your primary provider follow up on these organs. Have your primary provider reassess your kidney function after JAMILA. Continue prednisone and follow up with your primary provider regarding possible PMR (polymyalgia rheumatica). Work with your primary provider to eventually taper prednisone to lowest effective dose. Be aware of adverse effects as discussed including blood glucose elevation, blood pressure elevation, inflammation. Somtimes can contribute to confusion. Continue to hold statin in case statin is contributing to muscle weakness. Discuss with your primary provider. Monitor blood pressures 3 times daily. Hold entresto if blood pressures are getting low, (100 or less systolic or 65 or less diastolic). Your are currently on lower dose entresto. I blood pressures continue increasing you may be able to discontinue midodrine and afterward resume your prior dose Entresto. Do not resume imdur for now. Avoid NSAIDs, including topical diclofenac. Take Lasix only if starting to accumulate edema. You do not need them at the moment. Try to maintain fluid intake limit of Follow up with your primary provider to check on final results of the tick panel. You are continued on doxycycline for now until final result is available. Follow up with neurology regarding improving weakness with possible polymyalgia rheumatica and to consider other etoilogies. Follow up with your primary doctor for reassessment of depression and sertraline. Continue soft and bite sized diet (dysphagia level 6 diet), consistent carbohydrate.. Discharge Attestations Time Spent in Discharge Care*: greater than 30 min Status at Discharge: Cognitive status at discharge: cognitively intact , Behavioral status at discharge: cooperative , Quality Metrics Clinical Quality Measures [ No reported AMI, CVA or VTE this stay] Coding Level of Care Code 54748 Total time (in minutes) for Discharge: 60 Diagnoses Essential hypertension I10 Mixed hyperlipidemia E78.2 Pacemaker Z95.0 Other cardiomyopathy I42.8 Cardiomyopathy type: other Coronary arteriosclerosis after coronary artery bypass grafting I25.810 Systolic and diastolic CHF, chronic I50.42 Persistent atrial fibrillation I48.19 Atrial fibrillation type: persistent (not longstanding) S/p TAVR (transcatheter aortic valve replacement), bioprosthetic Z95.3 Atherosclerosis of tribal coronary artery of tribal heart without angina pectoris I25.10 Coronary Disease-Associated Artery/Lesion type: tribal artery PAD (peripheral artery disease) I73.9 Thrombocytopenia D69.6 Nonsustained ventricular tachycardia I47.29 Elevated troponin R79.89
--- NOTE | 2023-08-25 13:46 | PC.NURSE ---
Called report to JUAN CARLOS Joiner at [facility].
[2023-08-25 13:47] VITALS: BP 120/67; PULSE 80; RESP 24; TEMP 36.6
== END 2023-08-25 13:56 | disposition skilled nursing facility (03) | DRG 682 ==
LOC: ER 10:43 → CSU 12:47 → ICU 08-20 18:14 → CSU 08-22 19:12
PROVIDERS: Student in an Organized Health Care Education/Training Program; Admitting Provider Internal Medicine; Emergency Provider Family Medicine; PCP Family Medicine; Visit Provider Internal Medicine
DX: N17.9 Acute kidney failure, unspecified (principal); R57.0 Cardiogenic shock; I47.20 Ventricular tachycardia, unspecified; N39.0 Urinary tract infection, site not specified; E87.20 Acidosis, unspecified; I50.22 Chronic systolic (congestive) heart failure; I42.9 Cardiomyopathy, unspecified; I48.19 Other persistent atrial fibrillation; E86.0 Dehydration; S20.224A Contusion of middle back wall of thorax, initial encounter; W18.30XA Fall on same level, unspecified, initial encounter; F32.A Depression, unspecified; I25.10 Atherosclerotic heart disease of native coronary artery without angina pectoris; M48.062 Spinal stenosis, lumbar region with neurogenic claudication; I65.09 Occlusion and stenosis of unspecified vertebral artery; M10.9 Gout, unspecified; H35.30 Unspecified macular degeneration; M05.9 Rheumatoid arthritis with rheumatoid factor, unspecified; E78.2 Mixed hyperlipidemia; I73.9 Peripheral vascular disease, unspecified; R73.9 Hyperglycemia, unspecified; D69.6 Thrombocytopenia, unspecified; E87.6 Hypokalemia; I11.0 Hypertensive heart disease with heart failure; Z11.52 Encounter for screening for COVID-19; Z79.01 Long term (current) use of anticoagulants; Z79.02 Long term (current) use of antithrombotics/antiplatelets; Z95.0 Presence of cardiac pacemaker; Z95.1 Presence of aortocoronary bypass graft; Z85.828 Personal history of other malignant neoplasm of skin
CPT/HCPCS: 36415; 36416; 36600; 51702; 51798; 70450; 71045; 72070; 74176; 80048; 80051; 80053; 80061; 80074; 80162; 80202; 81001; 82330; 82436; 82533; 82550; 82570; 82607; 82746; 82805; 82962; 82977; 83036; 83540; 83550; 83605; 83615; 83735; 83880; 84133; 84145; 84155; 84165; 84300; 84484; 85025; 85999; 86140; 86334; 86403; 86618; 86666; 86757; 87040; 87086; 87426; 87486; 87581; 87633; 87641; 87806; 92523; 92526; 92610; 93005; 93308; 96374; 96376; 97110; 97116; 97161; 97167; 97530; 97535; 99285; G0378; J0283; J0696; J2185; J3370; J7030; J7512

== ENCOUNTER → 2023-09-26 14:00 | Outpatient (BNVA) | payer MEDICARE, SELFPAY | PROVIDERS: PCP Family Medicine; Visit Provider Nurse Practitioner Family | DX: I11.0 Hypertensive heart disease with heart failure (principal); I50.42 Chronic combined systolic (congestive) and diastolic (congestive) heart failure | CPT/HCPCS: 99214 ==

== ENCOUNTER → 2023-10-24 09:41 | Outpatient (BNVA) | payer MEDICARE, SELFPAY | PROVIDERS: PCP Family Medicine; Visit Provider Internal Medicine Rheumatology | DX: M05.79 Rheumatoid arthritis with rheumatoid factor of multiple sites without organ or systems involvement (principal); Z79.899 Other long term (current) drug therapy; M10.9 Gout, unspecified; Z71.85 Encounter for immunization safety counseling; M17.0 Bilateral primary osteoarthritis of knee | CPT/HCPCS: 99214 ==

== ENCOUNTER → 2023-11-07 13:02 | Outpatient (BNVA) | payer MEDICARE, SELFPAY | PROVIDERS: PCP Family Medicine; Visit Provider Nurse Practitioner Family | DX: S60.922A Unspecified superficial injury of left hand, initial encounter (principal); S50.911A Unspecified superficial injury of right forearm, initial encounter; S80.922A Unspecified superficial injury of left lower leg, initial encounter; S90.922A Unspecified superficial injury of left foot, initial encounter; X58.XXXA Exposure to other specified factors, initial encounter; L57.0 Actinic keratosis; L72.0 Epidermal cyst; L98.8 Other specified disorders of the skin and subcutaneous tissue; L82.1 Other seborrheic keratosis; L73.8 Other specified follicular disorders; D18.01 Hemangioma of skin and subcutaneous tissue; Z85.828 Personal history of other malignant neoplasm of skin | CPT/HCPCS: 17000; 99213 ==

== ENCOUNTER → 2023-12-20 09:37 | Outpatient (BNVA) | payer MEDICARE, SELFPAY | PROVIDERS: PCP Family Medicine; Visit Provider Nurse Practitioner Family | DX: S60.922A Unspecified superficial injury of left hand, initial encounter (principal); S50.911A Unspecified superficial injury of right forearm, initial encounter; S80.922A Unspecified superficial injury of left lower leg, initial encounter; S90.922A Unspecified superficial injury of left foot, initial encounter; X58.XXXA Exposure to other specified factors, initial encounter; L28.0 Lichen simplex chronicus; Z85.828 Personal history of other malignant neoplasm of skin | CPT/HCPCS: 99213 ==

== ENCOUNTER → 2024-01-11 09:35 | Outpatient (BNVA) | payer MEDICARE, SELFPAY | PROVIDERS: PCP Family Medicine; Visit Provider Internal Medicine Cardiovascular Disease | DX: I11.0 Hypertensive heart disease with heart failure (principal); I50.42 Chronic combined systolic (congestive) and diastolic (congestive) heart failure; E78.2 Mixed hyperlipidemia; Z95.0 Presence of cardiac pacemaker; I42.8 Other cardiomyopathies; I48.19 Other persistent atrial fibrillation; Z95.3 Presence of xenogenic heart valve; I73.9 Peripheral vascular disease, unspecified; I47.29 Other ventricular tachycardia; I25.810 Atherosclerosis of coronary artery bypass graft(s) without angina pectoris; Z79.01 Long term (current) use of anticoagulants | CPT/HCPCS: 99214 ==

== ENCOUNTER → 2024-02-29 10:36 | Outpatient (BNVA) | payer MEDICARE, SELFPAY | PROVIDERS: PCP Family Medicine; Visit Provider Internal Medicine Cardiovascular Disease | DX: R07.9 Chest pain, unspecified (principal) | CPT/HCPCS: 93005 ==

== ENCOUNTER → 2024-03-07 08:39 | Outpatient (BNVA) | payer MEDICARE, SELFPAY | PROVIDERS: PCP Family Medicine; Visit Provider Podiatrist Foot & Ankle Surgery | DX: I73.9 Peripheral vascular disease, unspecified (principal); L60.3 Nail dystrophy | CPT/HCPCS: 11721 ==

== ENCOUNTER → 2024-04-03 14:51 | Outpatient (BNVA) | payer MEDICARE, SELFPAY | PROVIDERS: PCP Family Medicine; Visit Provider Nurse Practitioner Family | DX: I48.19 Other persistent atrial fibrillation (principal) | CPT/HCPCS: 93005; 99214 ==

== ENCOUNTER → 2024-04-30 10:28 | Outpatient (BNVA) | payer MEDICARE, SELFPAY | PROVIDERS: PCP Family Medicine; Visit Provider Internal Medicine Rheumatology | DX: M05.79 Rheumatoid arthritis with rheumatoid factor of multiple sites without organ or systems involvement (principal); Z79.899 Other long term (current) drug therapy; Z71.89 Other specified counseling; M10.9 Gout, unspecified | CPT/HCPCS: 99214 ==

== ENCOUNTER → 2024-05-20 15:06 | Outpatient (BNVA) | payer MEDICARE, SELFPAY | PROVIDERS: PCP Family Medicine; Visit Provider Internal Medicine Rheumatology | DX: M17.0 Bilateral primary osteoarthritis of knee (principal); M25.561 Pain in right knee; M25.562 Pain in left knee | CPT/HCPCS: 20610; J1010; J9999 ==

== ENCOUNTER → 2024-06-19 10:03 | Outpatient (BNVA) | payer MEDICARE, SELFPAY | PROVIDERS: PCP Family Medicine; Visit Provider Nurse Practitioner Family | DX: F42.4 Excoriation (skin-picking) disorder (principal); L82.1 Other seborrheic keratosis; D18.01 Hemangioma of skin and subcutaneous tissue; L98.8 Other specified disorders of the skin and subcutaneous tissue; L81.4 Other melanin hyperpigmentation; L57.8 Other skin changes due to chronic exposure to nonionizing radiation; Z08 Encounter for follow-up examination after completed treatment for malignant neoplasm; Z85.828 Personal history of other malignant neoplasm of skin; D48.5 Neoplasm of uncertain behavior of skin; L57.0 Actinic keratosis | CPT/HCPCS: 11102; 17000; 99213 ==

== ENCOUNTER → 2024-07-17 11:05 | Outpatient (BNVA) | payer MEDICARE, SELFPAY | PROVIDERS: PCP Family Medicine; Visit Provider Internal Medicine Cardiovascular Disease | DX: Z45.018 Encounter for adjustment and management of other part of cardiac pacemaker (principal) | CPT/HCPCS: 93296 ==

== ENCOUNTER → 2024-07-31 09:15 | Outpatient (BNVA) | payer MEDICARE, SELFPAY | PROVIDERS: PCP Family Medicine; Visit Provider Nurse Practitioner Family | DX: L57.0 Actinic keratosis (principal); S80.921S Unspecified superficial injury of right lower leg, sequela; X58.XXXA Exposure to other specified factors, initial encounter; D18.01 Hemangioma of skin and subcutaneous tissue; L81.4 Other melanin hyperpigmentation; L57.8 Other skin changes due to chronic exposure to nonionizing radiation; Z08 Encounter for follow-up examination after completed treatment for malignant neoplasm; Z85.828 Personal history of other malignant neoplasm of skin | CPT/HCPCS: 99213 ==

== ENCOUNTER 2024-08-22 15:02 | Outpatient (CLI) | payer MEDICARE, SELFPAY ==
--- NOTE | 2024-08-22 15:00 | USCV_ITS ---
Thong Salgado Age: 84 Gender: M : 1940 Exam Date: 08/22/2024 15:22 Ordering Phys: Ashley Bear Technologist: MANNY [place] [facility] [place]: EF? BP: 100 / 60 HR: 77 Rhythm: Sinus Technical Quality: Adequate MEASUREMENTS (Male / Female) Normal Values 2D ECHO LV Diastolic Diameter PLAX 5.7 cm 4.2 - 5.9 / 3.9 - 5.3 cm IVS Diastolic Thickness 0.7 cm 0.6 - 1.0 / 0.6 - 0.9 cm IVS Systolic Thickness 1.6 cm LVPW Diastolic Thickness 1.2 cm 0.6 - 1.0 / 0.6 - 0.9 cm LVPW Systolic Thickness 1.8 cm LVOT Diameter 2.1 cm LV Ejection Fraction 2D Teich 59.1 % LV Ejection Fraction MOD 4C 46.0 % LV Ejection Fraction MOD 2C 48.6 % LV Ejection Fraction 2C AL 48.2 % LA Diameter 4.0 cm RA Systolic Volume 4C AL 44.4 ml RA Systolic Volume 4C MOD 45.7 ml Aorta at Sinotubular Diameter 2.5 cm M-MODE LA Ao Ratio MM 2.3 AV Cusp Separation MM 1.1 cm DOPPLER AV Peak Velocity 100.0 cm/s LVOT Peak Velocity 91.0 cm/s AV Area Cont Eq vti 3.7 cm squared AV Area Cont Eq pk 3.0 cm squared MV Peak Velocity 91.0 cm/s MV Area PHT 3.8 cm squared Mitral E to A Ratio 2.7 TR Peak Velocity 114.0 cm/s TR Peak Gradient 5.2 mmHg TV Peak E Velocity 75.0 cm/s FINDINGS Left Ventricle Moderately increased left ventricular cavity size. Severely decreased left ventricular systolic function. Left ventricular ejection fraction is estimated at 35 %. Global left ventricular hypokinesis. Right Ventricle The right ventricle is normal in size and function. Right Atrium The right atrium is normal in size. Left Atrium Moderately increased left atrial size. Mitral Valve Mildly thickened mitral valve. No mitral valve stenosis. Moderate mitral annular calcification. Moderate mitral valve regurgitation. Aortic Valve Aortic valve not well visualized probably normal, Possible bioprosthetic aortic valve Tricuspid Valve Structurally normal tricuspid valve without significant stenosis or regurgitation. Pulmonary artery systolic pressure is normal. Pulmonic Valve Mild pulmonary valve regurgitation. Pericardium Normal pericardium without effusion. Aorta Normal ascending aorta dimension. IVC The inferior vena cava appears normal. CONCLUSIONS Moderately increased left ventricular cavity size. Severely decreased left ventricular systolic function. Left ventricular ejection fraction is estimated at 35 %. Global left ventricular hypokinesis. Moderately increased left atrial size. Mildly thickened mitral valve. No mitral valve stenosis. Moderate mitral annular calcification. Moderate mitral valve regurgitation. Aortic valve not well visualized probably normal, Possible bioprosthetic aortic valve Mild pulmonary valve regurgitation. There is no pericardial effusion. Right atrial pressure is around 5 mm of mercury. Jakub Olvera MD (Electronically Signed) Final Date: 24 August 2024 20:09 S
== END 2024-08-22 15:03 | disposition home or self-care (01) ==
LOC: RAD 15:04
PROVIDERS: PCP Family Medicine; Visit Provider Nurse Practitioner Family
DX: I50.9 Heart failure, unspecified (principal); R93.1 Abnormal findings on diagnostic imaging of heart and coronary circulation; I51.89 Other ill-defined heart diseases; I51.7 Cardiomegaly; I34.81 Nonrheumatic mitral (valve) annulus calcification; I34.0 Nonrheumatic mitral (valve) insufficiency; I37.1 Nonrheumatic pulmonary valve insufficiency
CPT/HCPCS: 93306

== ENCOUNTER → 2024-08-26 10:25 | Outpatient (BNVA) | payer MEDICARE, SELFPAY | PROVIDERS: PCP Family Medicine; Visit Provider Internal Medicine Rheumatology | DX: M05.79 Rheumatoid arthritis with rheumatoid factor of multiple sites without organ or systems involvement (principal); Z79.899 Other long term (current) drug therapy; Z71.85 Encounter for immunization safety counseling; M10.9 Gout, unspecified | CPT/HCPCS: 99214 ==

== ENCOUNTER → 2024-09-18 15:32 | Outpatient (BNVA) | payer MEDICARE, SELFPAY | PROVIDERS: PCP Family Medicine; Visit Provider Internal Medicine Cardiovascular Disease | DX: I11.0 Hypertensive heart disease with heart failure (principal); I50.42 Chronic combined systolic (congestive) and diastolic (congestive) heart failure; I48.91 Unspecified atrial fibrillation; Z79.02 Long term (current) use of antithrombotics/antiplatelets; I34.0 Nonrheumatic mitral (valve) insufficiency; I37.1 Nonrheumatic pulmonary valve insufficiency; Z95.2 Presence of prosthetic heart valve; Z95.1 Presence of aortocoronary bypass graft; Z95.0 Presence of cardiac pacemaker | CPT/HCPCS: 99214 ==

== ENCOUNTER 2024-10-10 07:03 | Emergency (ER) | payer MEDICARE, SELFPAY ==
--- OUTSIDE RECORDS SUMMARY | 2024-10-10 07:08 | XMS_ITS | Clinical Summary ---
Author Organization [facility] Address [address] [place] [address] Care Team Providers Care Puff Iron Operator Name Role Phone Destin Chung MD Primary Care Provider [phone] Allergies Active Allergy Reactions Criticality Noted Date Comments Ciprofloxacin Muscle Pain Low 04/13/2016 Penicillins Rash Low 04/13/2016 Medications pravastatin (PRAVACHOL) 20 mg tablet 01/14/2016 Active apixaban (Eliquis) 5 mg tablet Take by mouth 2 times daily. Active multivitamin (DAILY-SARAH) tablet Take 1 Tablet by mouth daily. Active ferrous fumarate (FERROCITE,HEMOC YTE) 324 mg (106 mg iron) Tablet Take 324 mg by mouth. Active Glucosamine Sulfate 1,000 mg Capsule Take 3,000 mg by mouth. Active isosorbide mononitrate (IMDUR) 120 mg Extended Release 24 hour tablet Take 120 mg by mouth daily account resolution specialist. Active furosemide (LASIX) 40 mg tablet Take 40 mg by mouth daily. Active losartan (COZAAR) 50 mg tablet Take 50 mg by mouth daily. Active multivitamins-mi nerals-lutein (CENTRUM SILVER) Tablet Take 1 Tablet by mouth daily. Active Magnesium Oxide 84.5 mg mag (140 mg) Capsule Take 140 mg by mouth 2 times daily. Active nitroglycerin (NITROSTAT) 0.4 mg Tablet, Sublingual Place 0.4 mg under tongue every 5 minutes as needed for Chest Pain. Active potassium chloride (KLOR-CON) 20 mEq Extended Release tablet Take 20 mEq by mouth daily. Active wjvvo-5-ajq-epa- dpa-fish oil 1,050-1,200 mg Capsule Take by mouth. Active vit B cmplx 3-FA-Vit C-Biotin (RENAVITE-RX RX) 1-60-300 mg-mg-mcg Tablet Take 1 Tablet by mouth daily. Active vitamin E 1,000 unit Capsule Take 1,000 Units by mouth daily. Active ascorbic acid, vitamin C, (VITAMIN C) 500 mg tablet Take 500 mg by mouth daily. 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 stolic and diastolic congestive heart failure 11/26/2019 Ischemic dilated cardiomyopathy 11/26/2019 History of permanent cardiac pacemaker placement 11/26/2019 Pseudophakia of both eyes 04/13/2016 AMD (age-related macular degeneration), bilatera l 04/13/2016 Dermatochalasis of both upper eyelids 04/13/2016 Brow ptosis 04/13/2016 Ptosis, both eyelids 04/13/2016 Rosacea 04/13/2016 Social History Tobacco Use Types Packs/Day Years Used Date Smoking Tobacco: Never Smokeless Tobacco: Former Sex and Gender Information Value Date Recorded Sex Assigned at Not on file Legal Sex Male 9:36 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 Gender Identity Not on file Sexual Orientation Not on file Last Filed Vital Signs Vital Sign Reading Time Taken Comments Blood Pressure 125/69 11/27/2019 5:00 AM CDT Pulse 80 11/26/2019 8:00 PM CDT Temperature 37.3 C (99.1 F) 11/27/2019 5:00 AM CDT Respiratory Rate 20 11/27/2019 5:00 AM CDT Oxygen Saturation 93% 11/27/2019 5:00 AM CDT Inhaled Oxygen Concentration - - Weight 83 kg (183 lb 1.5 oz) 11/26/2019 9:04 AM CDT Height 175.3 cm (5' 9 ) 11/26/2019 9:04 AM CDT Body Mass Index 27.04 11/26/2019 9:04 AM CDT Plan of Treatment Health Maintenance Due Date Last Done Comments DTAP/TDAP/TD VACCINES (1 - Tdap) 01/16/1960 PNEUMOCOCCAL VACCINE 50+ YEARS (1 of 2 - PCV) 01/15/19 60 ZOSTER VACCINE (1 of 2) 1991 RSV VACCINE (60+ or ) (1 - 1-dose 75+ series) 01/16/2016 INFLUENZA VACCINE (#1) 2024 Medical Devices Implanted Type Area Supervisor Aircraft Maintenance Device Identifier Shelf Expiration Date Model / Serial / Lot Closure Perclose Proglide [id number] - [id number] Implanted:Qty: 1 on 11/26/2019 at [facility] Closure Device Right: Groin HELLER- VASC DEVICE 08/05/2021 [id number] / [id number] / [id number] [employer] Customer Management Specialist 6-7fr [id number] - [id number] Implanted:Qty: 1 on 11/26/2019 at [facility] Closure Device Left: Groin ACCESS CLOSURE 10/06/2021 [id number] / / [id number] Valve Sapien3 Transcath 29mm [id number] - [id number] Implanted:Qty: 1 on 11/26/2019 by Yan Salmeron MD at [facility] Tissue N/A: Aorta [employer] [id number] / [id number] / Explanted Type Area Supervisor Aircraft Maintenance Device Identifier Shelf Expiration Date Model / Serial / Lot Cath Pace Bipolar 5fr [id number] - [id number] Explanted:Qty: 1 on 11/26/2019 at [facility] Catheter Left: Chest CR BARD- MED DIV 07/06/2021 [id number] / / [id number] Insurance [address] [place] [id number] [place] [address] Advance Directives For more information, please contact: [phone] * Full Code (Latest Code Status on File) Date Activated Date Inactivated Comments 11/26/2019 8:04 AM 11/27/2019 5:26 PM Care Teams Puff Iron Operator Relationship Specialty Start Date End Date Destin Chung MD [address] [phone] PCP - General Family Practice 01/26/16
--- OUTSIDE RECORDS SUMMARY | 2024-10-10 07:09 | XMS_ITS | Encounter Summary ---
Author Organization [facility] Address [address] [place] [address] Care Team Providers Care Holter Technician Name Role Phone Destin Chung MD Primary Care Provider [phone] Reason for Referral * Radiology Services (Routine) - Closed Specialty Diagnoses / Procedures Referred By Geoffrey t Referred To Contact Radiology Diagnoses S/P TAVR (transcatheter aortic valve replacement) Procedures ECHO LIMITED WO DOPPLER ECHO COMPLETE Sav Mckay MD [address] [place] [phone] Phone: tel: fax: [facility] [place] [address] [place] [address] Phone: tel: fax: Referral ID Status Reason Start Date Expiration Date Visits Re quested Visits Authorized [id number] Closed 11/27/2019 12/27/2020 1 1 Encounter Details Date Type Department Care Team (Late st Contact Info) Description 12/25/2019 Ancillary Orders [facility] [address] [place] [phone] Sav Mckay MD [address] [place] [phone] S/P TAVR (transcatheter aortic valve replacement) Social History Tobacco Use Types Packs/Day Years Used Date Smoking Tobacco: Never Smokeless Tobacco: Former Sex and Gender Information Value Date Recorded Sex Assigned at Not on file Legal Sex Male 9:36 AM CANE PUSHER Gender Identity Not on file Sexual Orientation Not on file COVID-19 Exposure Response Date Recorded In the last month, have you been in contact with someone who was confirmed or suspected to have Coronavirus / COVID-19? No / Unsure 12/25/2019 9:52 AM CANE PUSHER documented as of this encounter Plan of Treatment Not on file documented as of this encounter Results * ECHO LIMITED WO DOPPLER (12/25/2019 10:58 AM CANE PUSHER) EJECTION FRACTION 30 INTERFACE SYSTEM 12/25/2019 10:1 3 AM CANE PUSHER Narrative INTERFACE SYSTEM - 12/25/2019 11:43 AM CANE PUSHER [facility] Radiology Services - Echocardiology [address] [place] [address] Limited Transthoracic Echocardiography Patient: Naomi Study ECHO LIMITED MINNA Benito ID: Gender: M : 1940 Age: 79 Room: Study 12/25/2019 Pt Outpatient Date: Status: Study 10:13:03 AM CSN #: [id number] Time: Ordering:Sav Mckay Interpreting:Garrett Rivas Coordinator Mining Products: Maureen Umana Indications and History: S/P TAVR. Dyspnea. Lower extremity swelling / Dizziness. Labs, prior tests, procedures, and surgery: Aortic valve replacement. (11/26/2019) Summary and Conclusion: - Study data: A limited echo was performed - Left ventricle: The cavity size was mildly dilated. Wall thickness was increased. Systolic function was moderately to severely reduced. The left ventricular ejection fraction was 30%. Diffuse hypokinesis. Interventricular septum shows dyssynergy, consistent with previous thoracotomy, conduction delay or RV pacing. - Right ventricle: The cavity size was at the upper limits of normal. Pacer wire or catheter noted in right ventricle. Systolic function was normal. - Left atrium: The atrium was dilated. - Right atrium: The atrium was dilated. - Aortic valve: Aortic transcatheter valve present Procedure information: Comparison was made to the study of 11/27/2019. Study status: Routine. Procedure: Transthoracic echocardiography. Image quality was adequate. Scanning was performed from the parasternal, apical, and subcostal acoustic windows. A limited echo was performed Study components: M-mode, limited 2D, limited spectral Doppler, and color Doppler. Height: 175cm. Height: 68.9in. Weight: 83.1kg. Weight: 182.7lb. BMI: 27.1kg/m\S\2. BSA: 2.02m\S\2. Blood pressure: 143/81 Study date: 12/25/2019. Study time: 10:13 AM. Location: Echo laboratory. Cardiac Anatomy: LEFT VENTRICLE: The cavity size was mildly dilated. Wall thickness was increased. Systolic function was moderately to severely reduced. The left ventricular ejection fraction was 30%. Diffuse hypokinesis. Interventricular septum shows dyssynergy, consistent with previous thoracotomy, conduction delay or RV pacing. RIGHT VENTRICLE: The cavity size was at the upper limits of normal. Pacer wire or catheter noted in right ventricle. Systolic function was normal. LEFT ATRIUM: The atrium was dilated. RIGHT ATRIUM: The atrium was dilated. AORTIC VALVE: Aortic transcatheter valve present MITRAL VALVE: Mildly calcified annulus. PERICARDIUM: A minimal pericardial effusion and/or fat pad was identified. AORTA: Aortic root: The aortic root was not dilated. SYSTEMIC VEINS: Inferior vena cava: Not well visualized. 2D measurements Left ventricle LVID ED, PLAX 4.0 cm LVID ES, PLAX 3.3 cm FS, endocardial, 18 % PLAX FS, PLAX max 25 % Major axis ED, A2C 8.7 cm LVID, ES 3.3 cm FS, endocardial 18 % LVPW, ED 1.9 cm LVPW, ES 2.4 cm Post wall thickening 26 % IVS/LVPW ratio, ED 1.18 Ventricular septum IVS, ED, PLAX 2.3 cm IVS, ES, PLAX 2.5 cm Septal thickening, 12 % PLAX IVS, ED 2.3 cm IVS, ES 2.5 cm Septal thickening 12 % LVOT Diam, S 2.0 cm Area 3 cm\S\2 Aortic valve Leaflet separation 2.2 cm Aorta Root diam 2.4 cm Left atrium AP dim 4.3 cm AP dim index 2.1 cm/m\S\2 SI dim, A4C 6.2 cm Right ventricle RVID ED, PLAX 3.5 cm Prepared and Electronically Authenticated Garrett Rivas Confirmed 12/25/2019 11:43 Procedure Note Garrett Rivas MD - 12/25/2019 [facility] Radiology Services - Echocardiology [address] [place] [address] Limited Transthoracic Echocardiography Patient: Naomi Study ECHO LIMITED MINNA Benito ID: Gender: M : 1940 Age: 79 Room: Study 12/25/2019 Pt Outpatient Date: Status: Study 10:13:03 AM CSN #: [id number] Time: Ordering:Sav Mckay Interpreting:Garrett Rivas Coordinator Mining Products: Maureen Umana Indications and History: S/P TAVR. Dyspnea. Lower extremity swelling / Dizziness. Labs, prior tests, procedures, and surgery: Aortic valve replacement. (11/26/2019) Summary and Conclusion: - Study data: A limited echo was performed - Left ventricle: The cavity size was mildly dilated. Wall thickness was increased. Systolic function was moderately to severely reduced. The left ventricular ejection fraction was 30%. Diffuse hypokinesis. Interventricular septum shows dyssynergy, consistent with previous thoracotomy, conduction delay or RV pacing. - Right ventricle: The cavity size was at the upper limits of normal. Pacer wire or catheter noted in right ventricle. Systolic function was normal. - Left atrium: The atrium was dilated. - Right atrium: The atrium was dilated. - Aortic valve: Aortic transcatheter valve present Procedure information: Comparison was made to the study of 11/27/2019. Study status: Routine. Procedure: Transthoracic echocardiography. Image quality was adequate. Scanning was performed from the parasternal, apical, and subcostal acoustic windows. A limited echo was performed Study components: M-mode, limited 2D, limited spectral Doppler, and color Doppler. Height: 175cm. Height: 68.9in. Weight: 83.1kg. Weight: 182.7lb. BMI: 27.1kg/m\S\2. BSA: 2.02m\S\2. Blood pressure: 143/81 Study date: 12/25/2019. Study time: 10:13 AM. Location: Echo laboratory. Cardiac Anatomy: LEFT VENTRICLE: The cavity size was mildly dilated. Wall thickness was increased. Systolic function was moderately to severely reduced. The left ventricular ejection fraction was 30%. Diffuse hypokinesis. Interventricular septum shows dyssynergy, consistent with previous thoracotomy, conduction delay or RV pacing. RIGHT VENTRICLE: The cavity size was at the upper limits of normal. Pacer wire or catheter noted in right ventricle. Systolic function was normal. LEFT ATRIUM: The atrium was dilated. RIGHT ATRIUM: The atrium was dilated. AORTIC VALVE: Aortic transcatheter valve present MITRAL VALVE: Mildly calcified annulus. PERICARDIUM: A minimal pericardial effusion and/or fat pad was identified. AORTA: Aortic root: The aortic root was not dilated. SYSTEMIC VEINS: Inferior vena cava: Not well visualized. 2D measurements Left ventricle LVID ED, PLAX 4.0 cm LVID ES, PLAX 3.3 cm FS, endocardial, 18 % PLAX FS, PLAX max 25 % Major axis ED, A2C 8.7 cm LVID, ES 3.3 cm FS, endocardial 18 % LVPW, ED 1.9 cm LVPW, ES 2.4 cm Post wall thickening 26 % IVS/LVPW ratio, ED 1.18 Ventricular septum IVS, ED, PLAX 2.3 cm IVS, ES, PLAX 2.5 cm Septal thickening, 12 % PLAX IVS, ED 2.3 cm IVS, ES 2.5 cm Septal thickening 12 % LVOT Diam, S 2.0 cm Area 3 cm\S\2 Aortic valve Leaflet separation 2.2 cm Aorta Root diam 2.4 cm Left atrium AP dim 4.3 cm AP dim index 2.1 cm/m\S\2 SI dim, A4C 6.2 cm Right ventricle RVID ED, PLAX 3.5 cm Prepared and Electronically Authenticated Garrett Rivas Confirmed 12/25/2019 11:43 us Sav Mckay MD US ORDERABLES Final Result Performing Organization Address City/[facility] Co de Phone Number INTERFACE SYSTEM Refer to clinic/hospital department documented in this encounter Visit Diagnoses Diagnosis S/P TAVR (transcatheter aortic valve replacement) S/P TAVR (transcatheter aortic valve replacement) documented in this encounter Care Teams Holter Technician Relationship Specialty Start Date End Date Destin Chung MD [address] [phone] PCP - General Family Practice 01/26/16 documented as of this encounter
--- OUTSIDE RECORDS SUMMARY | 2024-10-10 07:09 | XMS_ITS | Clinical Summary ---
[facility] Organization [facility] Address [address] [place]ann: Epic Prelude ADT SKYLA CHERRY [address] Care Team Providers Care Tunnel Kiln Operator Name Role Phone Destin Chung MD Primary Care Provider [phone] Allergies Active Allergy Reactions Criticality Noted Date Comments Ciprofloxacin Muscle Pain Low 04/13/2016 Penicillins Rash Low 04/13/2016 Medications multivitamin (DAILY-SARAH) tablet Take 1 Tablet by mouth daily. 10/09/2019 Active ferrous fumarate (FERROCITE,HEMOC YTE) 324 mg (106 mg iron) Tablet Take 324 mg by mouth. 10/09/2019 Active furosemide (LASIX) 40 mg tablet Take 40 mg by mouth daily. 10/09/2019 Active nitroglycerin (NITROSTAT) 0.4 mg Tablet, Sublingual Place 0.4 mg under tongue every 5 minutes as needed for Chest Pain. 10/09/2019 Active losartan (COZAAR) 50 mg tablet Take 50 mg by mouth daily. 10/09/2019 Active potassium chloride (KLOR-CON) 20 mEq Extended Release tablet Take 20 mEq by mouth daily. 10/09/2019 Active apixaban (ELIQUIS) 5 mg tablet Take by mouth 2 times daily. 10/09/2019 Active Glucosamine Sulfate 1,000 mg Capsule Take 3,000 mg by mouth. 10/09/2019 Active isosorbide mononitrate (IMDUR) 120 mg Extended Release 24 hour tablet Take 120 mg by mouth daily pediatric oncology nurse. 10/09/2019 Active Magnesium Oxide 84.5 mg mag (140 mg) Capsule Take 140 mg by mouth 2 times daily. 10/09/2019 Active vit B cmplx 3-FA-Vit C-Biotin (RENAVITE-RX RX) 1-60-300 mg-mg-mcg Tablet Take 1 Tablet by mouth daily. 10/09/2019 Active multivitamins-mi nerals-lutein (CENTRUM SILVER) Tablet Take 1 Tablet by mouth daily. 10/09/2019 Active xzkly-3-xcw-epa- dpa-fish oil 1,050-1,200 mg Capsule Take by mouth. 10/09/2019 Active ascorbic acid, vitamin C, (VITAMIN C) 500 mg tablet Take 500 mg by mouth daily. 10/09/2019 Active vitamin E 1,000 unit Capsule Take 1,000 Units by mouth daily. 10/09/2019 Active clopidogreL (PLAVIX) 75 mg Tablet TAKE 1 TABLET BY MOUTH DAILY 90 Tablet 01/04/2021 Active pravastatin (PRAVACHOL) 20 mg tablet 01/14/2016 Active Active Problems Problem Noted Date Diagnosed Date S/P TAVR (transcatheter aortic valve replacement ) 11/27/2019 Overview (06/05/2020): 29 mm LATOYA S3 11/26/2019 Acute on chronic combined sy stolic and diastolic congestive heart failure 11/26/2019 History of permanent cardiac pacemaker placement 11/26/2019 Nonrheumatic aortic valve stenosis 11/26/2019 Ischemic dilated cardiomyopathy 11/26/2019 Dermatochalasis of both upper eyelids 04/13/2016 Ptosis, both eyelids 04/13/2016 Pseudophakia of both eyes 04/13/2016 AMD (age-related macular degeneration), bilatera l 04/13/2016 Brow ptosis 04/13/2016 Rosacea 04/13/2016 Social History Tobacco Use Types Packs/Day Years Used Date Smoking Tobacco: Never Smokeless Tobacco: Former Sex and Gender Information Value Date Recorded Sex Assigned at Not on file 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 Gender Identity Not on file Sexual Orientation Not on file Last Filed Vital Signs Vital Sign Reading Time Taken Comments Blood Pressure 125/69 11/27/2019 5:00 AM CDT Pulse 80 11/26/2019 8:00 PM CDT Temperature 37.3 C (99.1 F) 11/27/2019 5:00 AM CDT Respiratory Rate 20 11/27/2019 5:00 AM CDT Oxygen Saturation - - Inhaled Oxygen Concentration - - Weight 83 [...] (#1) 2024 Medical Devices Implanted Type Area Perforator Loader Device Identifier Shelf Expiration Date Model / Serial / Lot Closure Perclose Proglide [id number] - [id number] Implanted:Qty : 1 on 11/26/2019 Closure Device Right: Groin HELLER- VASC DEVICE 08/05/2021 [id number] / [id number] / [id number] [employer] 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 Manager 6-7fr [id number] - [id number] Implanted:Qty : 1 on 11/26/2019 Closure Device Left: Groin ACCESS CLOSURE 10/06/2021 [id number] / / [id number] Valve Sapien3 Transcath 29mm [id number] - [id number] Implanted:Qty : 1 on 11/26/2019 by Yan Salmeron MD Tissue N/A: [employer] [id number] / [id number] / Explanted Type Area Perforator Loader Device Identifier Shelf Expiration Date Model / Serial / Lot Cath Pace Bipolar 5fr [id number] - [id number] Explanted:Qty : 1 on 11/26/2019 Catheter Left: Chest CR BARD- MED DIV 07/06/2021 [id number] / / [id number] Insurance MEDICARE HMO Care Teams Tunnel Kiln Operator Relationship Specialty Start Date End Date Destin Chung MD [address] [phone] PCP - General Family Practice 01/26/16
--- OUTSIDE RECORDS SUMMARY | 2024-10-10 07:09 | XMS_ITS | Encounter Summary ---
Author Organization [facility] Address [address] [place] [address] Care Team Providers Care Engraver Copperplate Name Role Phone Destin Chung MD Primary Care Provider [phone] Encounter Details Date Type Department Care Team (Late st Contact Info) Description 10/08/2019 Ancillary Orders [facility] External Department [address] [place] [id number] [facility], External Provider [address] [place] [address] Other chest pain Social History Tobacco Use Types Packs/Day Years Used Date Smoking Tobacco: Never Assessed Sex and Gender Information Value Date Recorded Sex Assigned at Not on file 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 No / Unsure 10/09/2019 2:27 PM CDT documented as of this encounter Plan of Treatment Not on file documented as of this encounter Results * ECHO PRIOR STUDY (10/04/2019 7:55 AM CDT) Narrative 10/08/2019 3:12 PM CDT This exam was auto finalized to allow images to be scanned to PACS. us External Provider [facility] ORDERABLES Final Resu lt documented in this encounter Visit Diagnoses Diagnosis Other chest pain Other chest pain documented in this encounter Care Teams Engraver Copperplate Relationship Specialty Start Date End Date Destin Chung MD [address] [facility] [address] [place] [address] PCP - General Family Practice 01/26/16 documented as of this encounter
--- OUTSIDE RECORDS SUMMARY | 2024-10-10 07:09 | XMS_ITS | Encounter Summary ---
Author Organization [facility] Address [address] [place] [address] Care Team Providers Care Quality Rep Name Role Phone Destin Chung MD Primary Care Provider [phone] Encounter Details Date Type Department Care Team (Late st Contact Info) Description 10/08/2019 Ancillary Orders [facility] External Department [address] [place] [phone] [facility], External Provider [address] [place] [address] Other chest pain Social History Tobacco Use Types Packs/Day Years Used Date Smoking Tobacco: Never Assessed Sex and Gender Information Value Date Recorded Sex Assigned at Not on file 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 us External Provider [facility] ORDERABLES Final Resu lt documented in this encounter Visit Diagnoses Diagnosis Other chest pain Other chest pain documented in this encounter Care Teams Quality Rep Relationship Specialty Start Date End Date Destin Chung MD [address] [facility] [address] [place] [address] PCP - General Family Practice 01/26/16 documented as of this encounter
--- OUTSIDE RECORDS SUMMARY | 2024-10-10 07:09 | XMS_ITS | Encounter Summary ---
Author Organization [facility] Address [address] [place] [address] Care Team Providers Care Air Analyst Name Role Phone Destin Chung MD Primary Care Provider [phone] Encounter Details Date Type Department Care Team (Late st Contact Info) Description 10/08/[address] 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 No / Unsure 10/09/2019 2:27 PM CDT documented as of this encounter Plan of Treatment Not on file documented as of this encounter Results * CATH PRIOR STUDY (02/15/2019 2:45 PM FIELD CONTACT PERSON) Narrative 10/08/2019 3:00 PM CDT This exam was auto finalized to allow images to be scanned to PACS. External Provider [facility] ORDERABLES Fin al Result documented in this encounter Visit Diagnoses Diagnosis Other chest pain Other chest pain documented in this encounter Care Teams Air Analyst Relationship Specialty Start Date End Date Destin Chung MD [address] [facility] [address] [place] [address] PCP - General Family Practice 01/26/16 documented as of this encounter
[2024-10-10 07:10] VITALS: BP 130/86; PULSE 86; RESP 16; TEMP 36.7; O2SAT 96; BMI 30.2
--- NOTE | 2024-10-10 07:23 | CT_ITS ---
WS: [id number] CT HEAD NONCONTRAST HISTORY: sims TECHNIQUE: Contiguous axial imaging performed through the brain. Bone and soft tissue windows. Sagittal and coronal reformats reviewed. All CT scans at [facility] use at least one of these dose optimization techniques: automated exposure control; mA and/or kV adjustment per patient size (includes targeted exams where dose is matched to clinical indication); or iterative reconstruction. DLP: 1108.48 mGy.cm COMPARISON: 08/18/2023 No acute intracranial hemorrhage, midline shift or mass effect. Moderate cerebral and cerebellar atrophy, similar to the prior study with moderate small vessel changes. No prior infarct. Ventricles: Ventricles and extra-axial spaces are prominent on the basis of atrophy. No inferior displacement of the posterior fossa. Paranasal sinuses: As visualized are clear. Mastoid air cells: Well pneumatized. Calvarium and scalp: Skull is intact with no soft tissue edema or swelling. Dense calcification in the distal vertebral arteries and intracranial carotid arteries. Calcification continues into the supraclinoid carotid arteries to the proximal middle cerebral arteries. CT/CT head wo con* [id number] IMPRESSION: 1. No acute intracranial hemorrhage or edema. 2. Dense calcification in the distal vertebral and the intracranial carotid ar teries. 3. Moderate cerebral and cerebellar atrophy and small vessel disease. Similar to the study of 08/18/2023
--- NOTE | 2024-10-10 07:23 | XR_ITS ---
WS: [id number] Portable AP upright chest, 10/10/2024 Clinical Data: weakness Comparison: Portable chest, 08/18/2023 Findings: No nodules, masses or effusions are seen. The heart is enlarged. The pulmonary vascularity is not increased. No pneumonia or pneumothorax is seen. There is a patchy opacity over the left diaphragm which is minimally elevated. There is a minimal patchy opacity over the right diaphragm. Midline sternotomy sutures are present. There is a multilead cardiac pacemaker with the generator in the left axilla. The aortic arch shows mild calcification and tortuosity. XR/XR chest 1V portable [id number] Impression: 1. Minimal patchy opacities over the surfaces of both diaphragms most consisten t with atelectasis. 2. Cardiomegaly, atherosclerosis and cardiac pacemaker.
--- NOTE | 2024-10-10 07:24 | ECG_ITS ---
[facility]: 2024-10-10 Pat Name: Thong Salgado Department: Room: Gender: Male Associate Product Integrity Engineer: : [id number] Requested By: Solomon Wynn Order Number: [id number] Enedina MD: Laith Peters M.D. Measurements Intervals [place] Rate: 82 P: 0 WV: 0 QRS: -81 QRSD: 208 T: 91 QT: 483 QTc: 565 Interpretive Statements ELECTRONIC VENTRICULAR PACEMAKER ABNORMAL RHYTHM ECG Compared to ECG 04/03/2024 15:02:32 No significant changes Electronically Signed On 10-11-2024 09:12:51 CDT by Laith Peters M.D. [email or web address]
--- NOTE | 2024-10-10 07:24 | W.ED.WEAKNES ---
HPI - Weakness General: Chief complaint: Weakness Stated complaint: light headed, dizzy and unstable and headachs Time Seen by Provider: 10/10/24 07:04 Source: patient Mode of arrival: ambulatory Limitations: no limitations History of Present Illness: 84-year-old male states that over the last 3 months he has been having intermittent headaches along with some episodes where he feels dizzy and weak. He states he had an episode on Day and then another 1 yesterday. He states that he currently feels at his baseline does have a mild headache he denies any chest pain he denies any slurred speech denies any focal deficits Associated symptoms: Reports headache(s); Denies chest pain, chills, fever(s), nausea or vomiting Related Data Home Medications ?Medication ?Instructions ?Recorded ?Confirmed ascorbic acid (vitamin C) 500 mg 500 mg PO DAILY 02/13/19 10/10/24 tablet (Vitamin C) ferrous gluconate 324 mg (37.5 mg 324 mg PO DAILY 02/13/19 10/10/24 iron) tablet glucosamine HCl 1,500 mg tablet 1,500 mg PO DAILY 06/17/19 10/10/24 sour kumar extract 1,000 mg 1,000 mg PO DAILY 06/16/20 10/10/24 capsule (Tart Kumar Extract) multivit,Ca,mgkp-QP-mlaqtogq-lutn 1 tab PO DAILY 06/21/23 10/10/24 18 mg-500 mcg-300 mcg-250 mcg tablet omega-3 fatty acids 1,000 mg 1,000 mg PO BID 06/21/23 10/10/24 capsule vitamin B complex 1 tab PO DAILY 06/21/23 10/10/24 potassium citrate 99 mg capsule 99 mg PO BID 08/18/23 10/10/24 metoprolol succinate 25 mg 12.5 mg PO DAILY 02/29/24 10/10/24 tablet,extended release 24 hr cefdinir 300 mg capsule 300 mg PO Q12H 10/10/24 10/10/24 furosemide 40 mg tablet See Rx Instructions .Route .COMPLEX 10/10/24 10/10/24 wvsyezfu-qkxgkkytx-nsvzgiptg 3.5 4 drp otic (ear) TID 10/10/24 10/10/24 mg-10,000 unit/mL-1 % ear drops,susp rosuvastatin 20 mg tablet 20 mg PO BEDTIME 10/10/24 10/10/24 sacubitril 49 mg-valsartan 51 mg 1 tab PO BID 10/10/24 10/10/24 tablet (Entresto) spironolactone 25 mg tablet 25 mg PO QAM 10/10/24 10/10/24 Previous Rx's ?Medication ?Instructions ?Recorded clopidogrel 75 mg tablet (Plavix) 75 mg PO DAILY #90 tabs 01/18/23 magnesium chloride 64 mg 64 mg PO BID #180 tabs 01/18/23 (magnesium chloride) tablet,delayed release (Mag 64) Eliquis 5 mg tablet (apixaban) 5 mg PO BID #180 tabs 01/11/24 amiodarone 200 mg tablet 200 mg PO DAILY #180 tabs 04/03/24 dapagliflozin propanediol 10 mg 10 mg PO DAILY #90 tabs 06/05/24 tablet (Farxiga) colchicine 0.6 mg tablet 0.6 mg PO DAILY #90 tabs 08/26/24 febuxostat 40 mg tablet 80 mg (2 x 40 mg) PO DAILY #180 08/26/24 tabs sulfasalazine 500 mg tablet 1,000 mg (2 x 500 mg) PO BID #360 08/26/24 tabs cephalexin 500 mg capsule 500 mg PO TID 7 days #21 caps 10/10/24 levothyroxine 25 mcg capsule 25 mcg PO DAILY #30 caps 10/10/24 Allergies Allergy/AdvReac Type Severity Reaction Status Date / Time ciprofloxacin Allergy Unknown unknown Verified 08/26/24 10:52 Penicillins Allergy Unknown unknown Verified 08/26/24 10:52 simvastatin Allergy unknown Verified 08/26/24 10:52 allopurinol AdvReac itching Verified 08/26/24 10:52 lisinopril AdvReac cough Verified 08/26/24 10:52 Review of Systems Const: Denies: fever(s), chills, body aches or change in appetite Eyes: Denies: blurry vision or eye discomfort ENMT: Denies: throat pain or dental pain Card: Denies: chest pain Resp: Denies: dyspnea GI: Denies: abdominal pain, nausea, vomiting or diarrhea Musc: Denies: neck pain or back pain Skin/Breast: Denies: rash Neuro: Reports: headache(s) and dizziness [facility] ED PFS: Medical History Atrial fibrillation Lumbar stenosis with neurogenic claudication Degenerative disc disease Vertebral artery stenosis Aortic aneurysm Weakness Weakness of both lower extremities Lactic acidosis Fever of unknown origin Acute urinary retention Leg weakness History of nonmelanoma skin cancer Gout COVID-19 vaccine administered Macular degeneration Seropositive rheumatoid arthritis of multiple sites Immunization counseling High risk medication use Osteoarthritis of knees, bilateral Inflammatory arthritis Gout, arthritis Edema, peripheral Coronary arteriosclerosis after coronary artery bypass grafting CABG x2 (OLSON to LAD and SVG to OM, 05/08/2008) Cardiomyopathy LVEF has decreased from 45% to 35% by echocardiogram. Cataract Cardiac arrhythmia Pacemaker Dual-chamber Mixed hyperlipidemia last lipid panel 2019: Cholesterol 93, triglycerides 78, LDL 55. Thoracic aneurysm without mention of rupture Ascending aortic aneurysm 4.4cm by CT 07/2017 Essential hypertension Surgical History History of surgical removal of ganglion cyst Hx of cataract surgery S/p TAVR (transcatheter aortic valve replacement), bioprosthetic Hx of CABG Hx of appendectomy H/O foot surgery Family History Mother Dementia Other CAD (coronary artery disease) Diabetes Hyperlipidemia Hypertension Stroke Denies family history of Clotting disorder Psychiatric illness Chronic kidney disease (CKD) Suicide Anesthesia complication Bleeding disorder Family history of premature coronary artery disease Lung disease Cancer Social History Smoking and tobacco/nicotine status: never used tobacco/nicotine Alcohol intake: never Substance/Drug Use: never Household members: significant other Housing: House Physical Exam Const: COMMON NORMALS: no acute distress, patient oriented x3 and healthy appearing HENMT: COMMON NORMALS: normocephalic and atraumatic HEAD & SCALP: normocephalic and atraumatic Eye: COMMON NORMALS: conjunctivae normal CONJUNCTIVA: Yes conjunctivae normal Neck/C-Spine: COMMON NORMALS: full ROM and supple Chest: COMMONS NORMALS: normal inspection of the chest Resp: COMMON NORMALS: normal respiratory effort, No retractions, No use of accessory muscles and clear to auscultation bilaterally AUSCULTATION: clear to auscultation bilaterally Cardio: COMMON NORMALS: regular rate, regular rhythm and No murmurs present (Cardio) RATE: regular rate RHYTHM: regular rhythm GI: COMMON NORMALS: Normal to inspection, nondistended, normoactive bowel sounds present, Soft to palpation, non-tender and no masses PALPATION: Yes Soft to palpation Extremity: COMMON NORMALS: normal to inspection and full ROM Neuro: COMMON NORMALS: patient oriented x3, moves all extremities and no focal motor deficits CRANIAL NERVES: Yes CN normal except as noted SPEECH: speech normal GAIT: Yes Normal gait present MOTOR EXAM: 5/5 motor strength present throughout Psych: COMMON NORMALS: mental status grossly normal, Normal thought process present and cooperative THOUGHT PROCESS: Normal thought process present Skin: COMMON NORMALS: no rashes or lesions noted and no wounds GENERAL SKIN EXAM: no rashes or lesions noted Course Vital Signs: Vital signs: Vital Signs Temperature 98.1 F 10/10/24 07:10 Pulse Rate 81 10/10/24 09:07 Respiratory Rate 16 10/10/24 07:10 Blood Pressure 109/67 10/10/24 09:07 Pulse Oximetry 99 10/10/24 09:07 Oxygen Delivery Me thod Room Air 10/10/24 07:10 MDM - Weakness Medical Decision Making Patient presents for general weakness some dizziness he was found to have a UTI along with hypothyroidism. I did offer him admission but he states he does not want to stay in the hospital. He is able to ambulate here no signs of stroke we will start him on Keflex along with Synthroid he is to follow-up with PCP and return if worsening. Medical Records I reviewed the patient's medical records. Lab Data I reviewed the patient's lab results. 10/10/24 07:13 10/10/24 07:13 Radiology Impressions Chest X-Ray 10/10/24 07:23 Impression: 1. Minimal patchy opacities over the surfaces of both diaphragms most consistent with atelectasis. 2. Cardiomegaly, atherosclerosis and cardiac pacemaker. Head CT 10/10/24 07:23 IMPRESSION: 1. No acute intracranial hemorrhage or edema. 2. Dense calcification in the distal vertebral and the intracranial carotid arteries. 3. Moderate cerebral and cerebellar atrophy and small vessel disease. Similar to the study of 08/18/2023 Laboratory Results WBC 6.02 10^3/uL (3.29-11.43) 10/10/24 07:13 RBC 3.87 10^6/uL (3.85-5.65) 10/10/24 07:13 Hgb 12.50 g/dL (11.27-16.99) 10/10/24 07:13 Hct 37.6 % (37-53) 10/10/24 07:13 MCV 97.2 fl (82-101) 10/10/24 07:13 MCH 32.3 pg (27-33) 10/10/24 07:13 MCHC 33.2 g/dL (30-55) 10/10/24 07:13 RDW 13.2 % (12.1-15.1) 10/10/24 07:13 Plt Count 276 10^3/cmm (157-399) 10/10/24 07:13 MPV 9.0 fL (7.4-10.4) 10/10/24 07:13 Neut % (Auto) 53.3 % 10/10/24 07:13 Lymph % (Auto) 30.6 % 10/10/24 07:13 [place] % (Auto) 10.0 % 10/10/24 07:13 Eos % (Auto) 4.7 % 10/10/24 07:13 Baso % (Auto) 1.2 % 10/10/24 07:13 Neut # (Auto) 3.22 10^3/uL (1.8-7.7) 10/10/24 07:13 Lymph # (Auto) 1.8 10^3/uL (0.8-4.8) 10/10/24 07:13 [place] # (Auto) 0.6 10^3/uL (0.2-0.9) 10/10/24 07:13 Eos # (Auto) 0.3 10^3/uL (0.0-0.8) 10/10/24 07:13 Baso # (Auto) 0.1 10^3/uL (0.0-0.1) 10/10/24 07:13 Nucleated RBC % (auto) 0 % 10/10/24 07:13 Nucleated RBCs # 0.0 /100WBC 10/10/24 07:13 Sodium 138 mmol/L (136-145) 10/10/24 07:13 Potassium 4.3 mmol/L (3.5-5.1) 10/10/24 07:13 Chloride 101 mmol/L (98-107) 10/10/24 07:13 Carbon Dioxide 23 mmol/L (22-29) 10/10/24 07:13 Anion Gap 18.3 (5-19) 10/10/24 07:13 BUN 22 mg/dL (8-23) 10/10/24 07:13 Creatinine 1.7 mg/dL (0.7-1.2) H 10/10/24 07:13 GFR Calculation Not Reportable 10/10/24 07:13 Glucose 152 mg/dL (65-115) H 10/10/24 07:13 Calculated Osmolality 292 mOsm/kg (285-295) 10/10/24 07:13 Calcium 9.8 mg/dL (8.5-10.5) 10/10/24 07:13 Total Bilirubin 0.3 mg/dL (0.15-1.2) 10/10/24 07:13 AST 24 U/L (0-40) 10/10/24 07:13 ALT 22 U/L (0-41) 10/10/24 07:13 Alkaline Phosphatase 50 U/L (40-130) 10/10/24 07:13 Total Protein 8.2 g/dL (6.6-8.7) 10/10/24 07:13 Albumin 4.7 g/dL (3.5-5.2) 10/10/24 07:13 Globulin 3.5 g/dL (1.3-4.6) 10/10/24 07:13 TSH 41.15 uIU/mL (0.27-4.20) H 10/10/24 07:13 Urine Color Yellow (Yellow) 10/10/24 07:44 Urine Appearance Turbid (CLEAR) A 10/10/24 07:44 Urine pH 6.0 (5-7) 10/10/24 07:44 Ur Specific [place] 1.017 (1.005-1.030) 10/10/24 07:44 Urine Protein 2+ (Negative) A 10/10/24 07:44 Urine Glucose (UA) Negative (Normal) 10/10/24 07:44 Urine Ketones Negative (Negative) 10/10/24 07:44 Urine Blood 2+ (Negative) A 10/10/24 07:44 Urine Nitrate Negative (Negative) 10/10/24 07:44 Urine Bilirubin Negative (Negative) 10/10/24 07:44 Urine Urobilinogen 0.2 mg/dL (Negative) 10/10/24 07:44 Ur Leukocyte Esterase 3+ (Negative) A 10/10/24 07:44 Urine RBC 3-5 /hpf (0-2) 10/10/24 07:44 Urine WBC >100 /hpf (0-5) H 10/10/24 07:44 Ur Squamous Epith Cells 21-50 /hpf (0-5) H 10/10/24 07:44 Amorphous Sediment Not Reportable 10/10/24 07:44 Urine Bacteria 3+ /hpf (NONE) H 10/10/24 07:44 Hyaline Casts 0-4 /lpf H 10/10/24 07:44 Urine Yeast 2+ /hpf H 10/10/24 07:44 All radiology interpretation(s) finalized by discharge EKG Data EKG 1: I personally reviewed and interpreted this EKG as follows: EKG interpretation date: 10/10/24 EKG interpretation time: 07:26 Interpretation: paced hr [address] elevation qrs 208 qtc 521 Discharge Plan Discharge Patient Disposition: Home Clinical Impression: Hypothyroidism, Acute cystitis Condition: Stable Prescriptions: New cephalexin 500 mg capsule 500 mg PO TID 7 Days Qty: 21 0RF levothyroxine 25 mcg capsule 25 mcg PO DAILY Qty: 30 0RF No Action Tart Kumar Extract 1,000 mg capsule 1,000 mg PO DAILY glucosamine HCl 1,500 mg tablet 1,500 mg PO DAILY ferrous gluconate 324 mg (37.5 mg iron) tablet 324 mg PO DAILY Eliquis 5 mg tablet 5 mg PO BID Qty: 180 3RF amiodarone 200 mg tablet 200 mg PO DAILY Qty: 180 3RF colchicine 0.6 mg tablet 0.6 mg PO DAILY Qty: 90 1RF febuxostat 40 mg tablet 80 mg PO DAILY Qty: 180 1RF Rx Instructions: 340B please, insurance denied sulfasalazine 500 mg tablet 1,000 mg PO BID Qty: 360 1RF metoprolol succinate 25 mg tablet extended release 24 hr 12.5 mg PO DAILY clopidogrel [Plavix] 75 mg tablet 75 mg PO DAILY Qty: 90 3RF Mag 64 64 mg tablet,delayed release (DR/EC) 64 mg PO BID Qty: 180 3RF dapagliflozin propanediol [Farxiga] 10 mg tablet 10 mg PO DAILY Qty: 90 3RF ascorbic acid (vitamin C) [Vitamin C] 500 mg Tablet 500 mg PO DAILY omega-3 fatty acids 1,000 mg Capsule 1,000 mg PO BID vitamin B complex Tablet 1 tab PO DAILY multivit,Ca,wzbr-AC-uywpdr-lut [id number] ri-urm-aej-mcg Tablet 1 tab PO DAILY potassium citrate 99 mg Capsule 99 mg PO BID furosemide 40 mg tablet See Rx Instructions .ROUTE .COMPLEX Rx Instructions: TAKE 1 TABLET BY MOUTH EVERY MORNING with 20mg tablet and ONE tab SIX hours LATER spironolactone 25 mg tablet 25 mg PO QAM cefdinir 300 mg capsule 300 mg PO Q12H [id number]-kpvzhrlax-EZ 3.5-10,000-1 mg/mL-unit/mL-% drops,suspension 4 drp otic (ear) TID sacubitril-valsartan [Entresto] 49-51 mg tablet 1 tab PO BID rosuvastatin 20 mg tablet 20 mg PO BEDTIME Discharge Orders: Discharge ED (Routine); Ordered 10/10/24 Ordered By: Solomon Wynn Referrals: Destin Chung MD [Primary Care Provider, Family Practice] - 4-7 days Discharge Diet: Advance as tolerated Discharge Activity: Resume usual activity Patient Instructions: Urinary Tract Infection in Men (ED), Hypothyroidism (ED) Print Language: Latvian Coding Level of Care Code ED Medical Officer for Betsy Ziegler
[2024-10-10 07:31] LABS: Hematocrit 37.6 % (37-53); Hemoglobin 12.50 g/dL (11.27-16.99); Mean Corpuscular HGB Conc 33.2 g/dL (30-55); Mean Corpuscular Hemoglobin 32.3 pg (27-33); Mean Corpuscular Volume 97.2 fl (82-101); Nucleated Red Blood Cells % 0 %; Platelet Count 276 10^3/cmm (157-399); Red Blood Count 3.87 10^6/uL (3.85-5.65); White Blood Count 6.02 10^3/uL (3.29-11.43)
[2024-10-10 08:00] LABS: Alanine Aminotransferase 22 U/L (0-41); Albumin Level 4.7 g/dL (3.5-5.2); Alkaline Phosphatase 50 U/L (40-130); Anion Gap 18.3 (5-19); Aspartate Amino Transferase 24 U/L (0-40); Blood Urea Nitrogen 22 mg/dL (8-23); Calcium 9.8 mg/dL (8.5-10.5); Carbon Dioxide 23 mmol/L (22-29); Chloride 101 mmol/L (98-107); Creatinine Clr Calc Pharmacy 37.0753; Globulin 3.5 g/dL (1.3-4.6); Glucose 152 mg/dL (65-115); Osmolality Calculated 292 mOsm/kg (285-295); Potassium 4.3 mmol/L (3.5-5.1); Sodium 138 mmol/L (136-145); Thyroid Stimulating Hormone 41.15 uIU/mL (0.27-4.20); Total Protein 8.2 g/dL (6.6-8.7)
[2024-10-10 08:00] LABS: Glucose Urine UA Negative (Normal); Nitrate Urine Negative (Negative); Specific Gravity, Urine 1.017 (1.005-1.030)
[2024-10-10 08:06] LABS: Add Urine Microscopic? YES
[2024-10-10 08:18] LABS: UA Slide Review UA Slide Review Perf
[2024-10-10] MEDS: cefTRIAXone 1,000 mg SDV 1000 MG IVP (08:39)
[2024-10-10 08:40] VITALS: BP 109/67; PULSE 80; O2SAT 95
[2024-10-10 09:07] VITALS: BP 109/67; PULSE 81; O2SAT 99
== END 2024-10-10 09:10 | disposition home or self-care (01) ==
PROVIDERS: Emergency Provider Emergency Medicine; PCP Family Medicine
DX: E03.9 Hypothyroidism, unspecified (principal); N30.00 Acute cystitis without hematuria; Z79.01 Long term (current) use of anticoagulants; Z79.02 Long term (current) use of antithrombotics/antiplatelets; Z95.1 Presence of aortocoronary bypass graft; Z95.0 Presence of cardiac pacemaker; E78.2 Mixed hyperlipidemia; I10 Essential (primary) hypertension; Z85.828 Personal history of other malignant neoplasm of skin
CPT/HCPCS: 70450; 71045; 80053; 81001; 84443; 85025; 87077; 87086; 87186; 93005; 96374; 99285; J0696

== ENCOUNTER → 2024-10-23 09:19 | Outpatient (BNVA) | payer MEDICARE, SELFPAY | PROVIDERS: PCP Family Medicine; Visit Provider Nurse Practitioner Family | DX: L98.8 Other specified disorders of the skin and subcutaneous tissue (principal); L81.4 Other melanin hyperpigmentation; L57.8 Other skin changes due to chronic exposure to nonionizing radiation; Z08 Encounter for follow-up examination after completed treatment for malignant neoplasm; Z85.828 Personal history of other malignant neoplasm of skin | CPT/HCPCS: 99213 ==

== ENCOUNTER 2024-11-15 09:56 | Inpatient (IN) | payer MEDICARE, SELFPAY ==
[2024-11-15 09:58] VITALS: BP 126/70; PULSE 81; RESP 18; TEMP 36.6; O2SAT 84; BMI 30.2
--- NOTE | 2024-11-15 10:00 | XRR_ITS ---
PROCEDURE INFORMATION: Exam: XR Chest Exam date and time: 11/15/2024 10:13 AM Age: 84 years old Clinical indication: Other: Weakness TECHNIQUE: Imaging protocol: Radiologic exam of the chest. Views: 1 view. COMPARISON: CR XR chest 1V portable 12026 10/10/2024 7:38 AM FINDINGS: Tubes, catheters and devices: Dual lead cardiac pacer. Status post median sternotomy and CABG. Lungs: Left basilar opacity, slightly increased in prominence. Mild right basilar atelectasis/opacity. Tiny calcified pulmonary nodules are noted again bilaterally. Pleural spaces: Unremarkable. No pleural effusion. No pneumothorax. Heart/Mediastinum: Unremarkable. No cardiomegaly. Bones/joints: See Tubes, catheters and devices finding. XR/XR chest 1V portable 07336 IMPRESSION: Bibasilar opacities.
--- NOTE | 2024-11-15 10:02 | ECG_ITS ---
[facility]: 2024-[facility]15 Pat Name: Thong Salgado Department: Room: Gender: Male [employer]or: : 1940 Requested By: Efren Chowdhury Order Number: [id number] Enedina MD: STEVEN WELDON Measurements Intervals Raymond Rate: 89 P: 0 MO: 0 QRS: -82 QRSD: 203 T: 92 QT: 460 QTc: 562 Interpretive Statements ELECTRONIC VENTRICULAR PACEMAKER ABNORMAL RHYTHM ECG Compared to ECG 10/10/2024 07:26:13 No significant changes Electronically Signed On 11-17-2024 23:21:32 CDT by STEVEN WELDON [email or web address]
--- NOTE | 2024-11-15 10:03 | W.ED.GENADLT ---
HPI - General Adult General: Chief complaint: Weakness Stated complaint: weakness - paced rhythm Time Seen by Provider: 11/15/24 10:00 History of Present Illness: 84-year-old male presents emergency room chronic generalized weakness inability to stand. He was seen yesterday at another emergency room with complaints of dysuria. UA evidently showed a cystitis and he was started on doxycycline. He denies any chest pain he has had a little bit of shortness of breath. He has a history of atrial fibrillation he has a known history of coronary artery disease and previously had bypass. Patient awake alert and oriented Associated symptoms: Reports malaise; Deny chest pain, dyspnea or rash Related Data Home Medications ?Medication ?Instructions ?Recorded ?Confirmed ascorbic acid (vitamin C) 500 mg 500 mg PO DAILY 02/13/19 11/15/24 tablet (Vitamin C) ferrous gluconate 324 mg (37.5 mg 324 mg PO DAILY 02/13/19 11/15/24 iron) tablet glucosamine HCl 1,500 mg tablet 1,500 mg PO DAILY 06/17/19 11/15/24 sour kumar extract 1,000 mg 1,000 mg PO DAILY 06/16/20 11/15/24 capsule (Tart Kumar Extract) multivit,Ca,fjyw-JD-jjmmnptp-lutn 1 tab PO DAILY 06/21/23 11/15/24 18 mg-500 mcg-300 mcg-250 mcg tablet omega-3 fatty acids 1,000 mg 1,000 mg PO BID 06/21/23 11/15/24 capsule vitamin B complex 1 tab PO DAILY 06/21/23 11/15/24 potassium citrate 99 mg capsule 99 mg PO BID 08/18/23 11/15/24 metoprolol succinate 25 mg 12.5 mg PO DAILY 02/29/24 11/15/24 tablet,extended release 24 hr furosemide 40 mg tablet See Rx Instructions .Route .COMPLEX 10/10/24 11/15/24 rosuvastatin 20 mg tablet 20 mg PO BEDTIME 10/10/24 11/15/24 sacubitril 49 mg-valsartan 51 mg 1 tab PO BID 10/10/24 11/15/24 tablet (Entresto) spironolactone 25 mg tablet 12.5 mg PO QAM 11/06/24 11/15/24 doxycycline hyclate 100 mg tablet 100 mg PO BID 11/15/24 11/15/24 levofloxacin 500 mg tablet 500 mg PO DAILY 11/15/24 11/15/24 levothyroxine 50 mcg tablet 50 mcg PO QAM 11/15/24 11/15/24 Previous Rx's ?Medication ?Instructions ?Recorded clopidogrel 75 mg tablet (Plavix) 75 mg PO DAILY #90 tabs 01/18/23 magnesium chloride 64 mg 64 mg PO BID #180 tabs 01/18/23 (magnesium chloride) tablet,delayed release (Mag 64) Eliquis 5 mg tablet (apixaban) 5 mg PO BID #180 tabs 01/11/24 amiodarone 200 mg tablet 200 mg PO DAILY #180 tabs 04/03/24 dapagliflozin propanediol 10 mg 10 mg PO DAILY #90 tabs 06/05/24 tablet (Farxiga) colchicine 0.6 mg tablet 0.6 mg PO DAILY #90 tabs 08/26/24 febuxostat 40 mg tablet 80 mg (2 x 40 mg) PO DAILY #180 08/26/24 tabs sulfasalazine 500 mg tablet 1,000 mg (2 x 500 mg) PO BID #360 08/26/24 tabs Allergies Allergy/AdvReac Type Severity Reaction Status Date / Time ciprofloxacin Allergy Unknown unknown Verified 08/26/24 10:52 Penicillins Allergy Unknown unknown Verified 08/26/24 10:52 simvastatin Allergy unknown Verified 08/26/24 10:52 allopurinol AdvReac itching Verified 08/26/24 10:52 lisinopril AdvReac cough Verified 08/26/24 10:52 Review of Systems Const: Reports: fatigue and malaise; Denies: fever(s) or chills Card: Denies: chest pain Resp: Denies: dyspnea GI: Denies: abdominal pain : Denies: dysuria, urinary frequency or urinary urgency Musc: Denies: neck pain or back pain Skin/Breast: Denies: rash PFSH ED PFSH: Medical History Atrial fibrillation Lumbar stenosis with neurogenic claudication Degenerative disc disease Vertebral artery stenosis Aortic aneurysm Weakness Weakness of both lower extremities Lactic acidosis Fever of unknown origin Acute urinary retention Leg weakness History of nonmelanoma skin cancer Gout COVID-19 vaccine administered Macular degeneration Seropositive rheumatoid arthritis of multiple sites Immunization counseling High risk medication use Osteoarthritis of knees, bilateral Inflammatory arthritis Gout, arthritis Edema, peripheral Coronary arteriosclerosis after coronary artery bypass grafting CABG x2 (OLSON to LAD and SVG to OM, 05/08/2008) Cardiomyopathy LVEF has decreased from 45% to 35% by echocardiogram. Cataract Cardiac arrhythmia Pacemaker Dual-chamber Mixed hyperlipidemia last lipid panel 2020: Cholesterol 93, triglycerides 78, LDL 55. Thoracic aneurysm without mention of rupture Ascending aortic aneurysm 4.4cm by CT 07/2017 Essential hypertension Surgical History History of surgical removal of ganglion cyst Hx of cataract surgery S/p TAVR (transcatheter aortic valve replacement), bioprosthetic Hx of CABG Hx of appendectomy H/O foot surgery Family History Mother Dementia Other CAD (coronary artery disease) Diabetes Hyperlipidemia Hypertension Stroke Denies family history of Clotting disorder Psychiatric illness Chronic kidney disease (CKD) Suicide Anesthesia complication Bleeding disorder Family history of premature coronary artery disease Lung disease Cancer Social History Smoking and tobacco/nicotine status: never used tobacco/nicotine Alcohol intake: never Substance/Drug Use: never Household members: significant other Housing: House Physical Exam Const: GENERAL APPEARANCE: cooperative and comfortable ORIENTATION/CONSCIOUSNESS: Yes awake, Yes oriented to person, Yes oriented to place and Yes oriented to time HENMT: COMMON NORMALS: normocephalic, atraumatic and hearing grossly normal bilaterally HEAD & SCALP: normocephalic and atraumatic Resp: AUSCULTATION: rhonchi Cardio: COMMON NORMALS: regular rate, regular rhythm and No murmurs present (Cardio) RATE: regular rate RHYTHM: regular rhythm GI: COMMON NORMALS: Soft to palpation and No hepatosplenomegaly present AUSCULTATION: Yes normoactive bowel sounds PALPATION: Yes Soft to palpation, No Tenderness to palpation present (GI), No Guarding due to palpation present (GI) and Yes No hepatosplenomegaly present Extremity: COMMON NORMALS: normal to inspection, capillary refill normal, no clubbing, cyanosis or edema, no calf tenderness and no pedal edema Neuro: SENSORIUM/ORIENTATION: Yes oriented to person, Yes oriented to place and Yes oriented to time Skin: COMMON NORMALS: no rashes or lesions noted GENERAL SKIN EXAM: no rashes or lesions noted Course Vital Signs: Vital signs: Vital Signs Temperature 99.6 F 11/15/24 16:00 Pulse Rate 80 11/15/24 16:00 Respiratory Rate 18 11/15/24 16:00 Blood Pressure 104/63 11/15/24 16:00 Pulse Oximetry 94 11/15/24 16:00 Oxygen Delivery Me thod Nasal Cannula 11/15/24 16:00 Oxygen Flow Rate 4 11/15/24 10:36 MDM - General Adult Medical Decision Making Chest x-ray shows pneumonia. Patient does have a mild bladder infection as well started on ceftriaxone and Zithromax. Lactic acid initially 2.3 improved to 2.2 after liter of IV fluids. Patient's blood pressure did not drop below 100. Patient given some fluids but modified due to his underlying history of heart failure. Antibiotics initiated. Discussed with hospitalist orders written Medical Records I reviewed the patient's medical records. Lab Data I reviewed the patient's lab results. 11/15/24 10:15 11/15/24 10:15 Radiology Impressions Chest X-Ray 11/15/24 10:00 IMPRESSION: Bibasilar opacities. Laboratory Results WBC 16.14 10^3/uL (3.29-11.43) H 11/15/24 10:15 RBC 3.90 10^6/uL (3.85-5.65) 11/15/24 10:15 Hgb 12.50 g/dL (11.27-16.99) 11/15/24 10:15 Hct 37.8 % (37-53) 11/15/24 10:15 MCV 96.9 fl (82-101) 11/15/24 10:15 MCH 32.1 pg (27-33) 11/15/24 10:15 MCHC 33.1 g/dL (30-55) 11/15/24 10:15 RDW 13.8 % (12.1-15.1) 11/15/24 10:15 Plt Count 238 10^3/cmm (157-399) 11/15/24 10:15 MPV 9.1 fL (7.4-10.4) 11/15/24 10:15 Neut % (Auto) 92.2 % 11/15/24 10:15 Lymph % (Auto) 2.9 % 11/15/24 10:15 [place] % (Auto) 4.2 % 11/15/24 10:15 Eos % (Auto) 0.0 % 11/15/24 10:15 Baso % (Auto) 0.2 % 11/15/24 10:15 Neut # (Auto) 14.89 10^3/uL (1.8-7.7) H 11/15/24 10:15 Lymph # (Auto) 0.5 10^3/uL (0.8-4.8) L 11/15/24 10:15 [place] # (Auto) 0.7 10^3/uL (0.2-0.9) 11/15/24 10:15 Eos # (Auto) 0.0 10^3/uL (0.0-0.8) 11/15/24 10:15 Baso # (Auto) 0.0 10^3/uL (0.0-0.1) 11/15/24 10:15 Nucleated RBC % (auto) 0 % 11/15/24 10:15 Nucleated RBCs # 0.0 /100WBC 11/15/24 10:15 Sodium 136 mmol/L (136-145) 11/15/24 10:15 Potassium 4.2 mmol/L (3.5-5.1) 11/15/24 10:15 Chloride 97 mmol/L (98-107) L 11/15/24 10:15 Carbon Dioxide 22 mmol/L (22-29) 11/15/24 10:15 Anion Gap 21.2 (5-19) H 11/15/24 10:15 BUN 26 mg/dL (8-23) H 11/15/24 10:15 Creatinine 1.7 mg/dL (0.7-1.2) H 11/15/24 10:15 GFR Calculation Not Reportable 11/15/24 10:15 Glucose 183 mg/dL (65-115) H 11/15/24 10:15 Calculated Osmolality 291 mOsm/kg (285-295) 11/15/24 10:15 Lactic Acid 2.3 mmol/L (0.5-2.2) H 11/15/24 10:15 Lactic Acid (Sepsis) 2.2 mmol/L (0.5-2.2) 11/15/24 12:08 Calcium 9.7 mg/dL (8.5-10.5) 11/15/24 10:15 Total Bilirubin 0.6 mg/dL (0.15-1.2) 11/15/24 10:15 AST 23 U/L (0-40) 11/15/24 10:15 ALT 19 U/L (0-41) 11/15/24 10:15 Alkaline Phosphatase 45 U/L (40-130) 11/15/24 10:15 Creatine Kinase 256 U/L (39-308) 11/15/24 10:15 Troponin T Baseline 40 ng/L (0-15) H 11/15/24 10:15 Troponin T 120 Minute 36.72 ng/L (0-15) H 11/15/24 12:08 Delta Troponin T -3.28 ABS# (0-10) L 11/15/24 12:08 NT-Pro-B Natriuret Pep 1678 pg/mL (0-450) H 11/15/24 10:15 Total Protein 7.8 g/dL (6.6-8.7) 11/15/24 10:15 Albumin 5.0 g/dL (3.5-5.2) 11/15/24 10:15 Globulin 2.8 g/dL (1.3-4.6) 11/15/24 10:15 Lipase 19 U/L (13-60) 11/15/24 10:15 Procalcitonin 0.40 ng/mL (0-0.5) 11/15/24 10:15 Urine Color Yellow (Yellow) 11/15/24 10: Urine Appearance Turbid (CLEAR) A 11/15/24 10: Urine pH 5.5 (5-7) 11/15/24 10: Ur Specific [place] 1.031 (1.005-1.030) H 11/15/24 10: Urine Protein 2+ (Negative) A 11/15/24 Urine Glucose (UA) 3+ (Normal) H 11/15/24 10: Urine Ketones Trace (Negative) 11/15/24 10: Urine Blood 3+ (Negative) A 11/15/24 10: Urine Nitrate Negative (Negative) 11/15/24 10: Urine Bilirubin Negative (Negative) 10/10/25 10:25 Urine Urobilinogen 0.2 mg/dL (Negative) 11/15/24 10:25 Ur Leukocyte Esterase 2+ (Negative) A 11/15/24 10:25 Urine RBC 15-25 /hpf (0-2) H 11/15/24 10:25 Urine WBC 55-80 /hpf (0-5) H 11/15/24 10:25 Ur Squamous Epith Cells 0-4 /hpf (0-5) H 11/15/24 10:25 Amorphous Sediment Not Reportable 11/15/24 10:25 Urine Bacteria Trace /hpf (NONE) 11/15/24 10:25 Urine Yeast 2+ /hpf H 11/15/24 10:25 All radiology interpretation(s) finalized by discharge Discharge Plan Discharge Patient Disposition: Admitted As Inpatient Admit Provider: Rose Marie Dolan Clinical Impression: Bilateral pneumonia, Cardiomyopathy, Systolic and diastolic CHF, chronic, Atrial fibrillation, Bladder outlet obstruction, Complicated UTI (urinary tract infection), Sepsis, Hypoxia Condition: Stable Coding Level of Care Code ED Power Engineer for Betsy Ziegler
--- NOTE | 2024-11-15 10:33 | PC.NURSE ---
Addendum entered by Glory Restrepo RN 11/15/24 10:37: approx 350-400mL output* Original Note: pre-cath bladder scan approx 490mL, pt urinated 100mL into urinal, states was unable to urinate any more. sierra placed, 400mL output into bag. some pink/red urine after initial cath and then pale/cloudy yellow urine output. pt had some bloody discharge/urine on pad, states was told by urologist would have some post cath yesterday.
[2024-11-15 10:36] VITALS: PULSE 82; RESP 28; O2SAT 93
[2024-11-15 10:37] LABS: Hematocrit 37.8 % (37-53); Hemoglobin 12.50 g/dL (11.27-16.99); Mean Corpuscular HGB Conc 33.1 g/dL (30-55); Mean Corpuscular Hemoglobin 32.1 pg (27-33); Mean Corpuscular Volume 96.9 fl (82-101); Nucleated Red Blood Cells % 0 %; Platelet Count 238 10^3/cmm (157-399); Red Blood Count 3.90 10^6/uL (3.85-5.65); White Blood Count 16.14 10^3/uL (3.29-11.43)
[2024-11-15 10:39] LABS: Glucose Urine UA 3+ (Normal); Nitrate Urine Negative (Negative)
[2024-11-15 10:40] LABS: Specific Gravity, Urine 1.031 (1.005-1.030)
[2024-11-15 11:00] LABS: Add Urine Microscopic? YES; UA Manual Slide Review YES
[2024-11-15 11:03] LABS: Lactic Sepsis W/Reflex 2.3 mmol/L (0.5-2.2)
[2024-11-15 11:05] LABS: Troponin(5th) Baseline 40 ng/L (0-15)
[2024-11-15 11:15] LABS: NT Pro B Type Natriuretic Pept 1678 pg/mL (0-450); Procalcitonin 0.40 ng/mL (0-0.5)
[2024-11-15 11:16] LABS: Reflex Lactate Order REFLEX LACTIC ORDERD
[2024-11-15 11:27] LABS: Alanine Aminotransferase 19 U/L (0-41); Albumin Level 5.0 g/dL (3.5-5.2); Alkaline Phosphatase 45 U/L (40-130); Anion Gap 21.2 (5-19); Aspartate Amino Transferase 23 U/L (0-40); Blood Urea Nitrogen 26 mg/dL (8-23); Calcium 9.7 mg/dL (8.5-10.5); Carbon Dioxide 22 mmol/L (22-29); Chloride 97 mmol/L (98-107); Creatinine Clr Calc Pharmacy 37.0753; Globulin 2.8 g/dL (1.3-4.6); Glucose 183 mg/dL (65-115); Lipase 19 U/L (13-60); Osmolality Calculated 291 mOsm/kg (285-295); Potassium 4.2 mmol/L (3.5-5.1); Sodium 136 mmol/L (136-145); Total Protein 7.8 g/dL (6.6-8.7)
--- NOTE | 2024-11-15 12:05 | ECG_ITS ---
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
[2024-11-15] MEDS: cefTRIAXone 2,000 mg SDV 2000 MG IVP (12:14)
[2024-11-15 12:40] LABS: Lactic Acid level (Lactate) 2.2 mmol/L (0.5-2.2); Troponin 5 2HR 36.72 ng/L (0-15); Troponin 5 2HR Delta -3.28 ABS# (0-10)
[2024-11-15 12:46] VITALS: BP 109/78; PULSE 82; RESP 29; O2SAT 98
[2024-11-15 13:21] VITALS: BMI 32.2
--- NOTE | 2024-11-15 15:05 | PM.HP ---
Providers/Chief Complaint Admitting Physician: Rose Marie Dolan MD Primary Care Provider: Destin Chung MD Chief Complaint: Generalized weakness History of Present Illness Thong Salgado Jr is a 84 year old male with atrial fibrillation, CAD status post CABG x 2, chronic HFrEF, status post TAVR, thoracic aortic aneurysm, hyperlipidemia, and gout presenting with generalized weakness. He was seen by urology yesterday because he has had recurrent UTIs. He was diagnosed with bladder outlet obstruction. Urology plans to do a cystoscopy in the future. He was catheterized at urology and had gross hematuria last night. The hematuria has improved. A Rutherford catheter was placed in the ED. He was unable to stand or ambulate in the ED due to significant generalized weakness. UA was positive for UTI. He also reported mild dyspnea. He was hypoxic on room air and was placed on 4 L/min O2. Chest x-ray showed bibasilar opacities. Review of Systems General: Reports: 10 or more systems reviewed and unremarkable except in HPI and below Medications/Allergies Home Medications ?Medication ?Instructions ?Recorded ?Confirmed ?Last Taken ?Type ascorbic acid (vitamin C) 500 mg 500 mg PO DAILY 02/13/19 11/15/24 11/14/24 History tablet (Vitamin C) ferrous gluconate 324 mg (37.5 mg 324 mg PO DAILY 02/13/19 11/15/24 11/14/24 History iron) tablet glucosamine HCl 1,500 mg tablet 1,500 mg PO DAILY 06/17/19 11/15/24 11/14/24 History sour kumar extract 1,000 mg 1,000 mg PO DAILY 06/16/20 11/15/24 11/14/24 History capsule (Tart Kumar Extract) clopidogrel 75 mg tablet (Plavix) 75 mg PO DAILY #90 tabs 01/18/23 11/15/24 11/14/24 Rx magnesium chloride 64 mg 64 mg PO BID #180 tabs 01/18/23 11/15/24 11/14/24 Rx (magnesium chloride) tablet,delayed release (Mag 64) multivit,Ca,obym-JO-bnumpxtv-lutn 1 tab PO DAILY 06/21/23 11/15/24 11/14/24 History 18 mg-500 mcg-300 mcg-250 mcg tablet omega-3 fatty acids 1,000 mg 1,000 mg PO BID 06/21/23 11/15/24 11/14/24 History capsule vitamin B complex 1 tab PO DAILY 06/21/23 11/15/24 11/14/24 History potassium citrate 99 mg capsule 99 mg PO BID 08/18/23 11/15/24 11/14/24 History Eliquis 5 mg tablet (apixaban) 5 mg PO BID #180 tabs 01/11/24 11/15/24 11/14/24 Rx metoprolol succinate 25 mg 12.5 mg PO DAILY 02/29/24 11/15/24 11/14/24 History tablet,extended release 24 hr amiodarone 200 mg tablet 200 mg PO DAILY #180 tabs 04/03/24 11/15/24 11/14/24 Rx dapagliflozin propanediol 10 mg 10 mg PO DAILY #90 tabs 06/05/24 11/15/24 11/14/24 Rx tablet (Farxiga) colchicine 0.6 mg tablet 0.6 mg PO DAILY #90 tabs 08/26/24 11/15/24 11/14/24 Rx febuxostat 40 mg tablet 80 mg (2 x 40 mg) PO DAILY #180 08/26/24 11/15/24 Unknown Rx tabs sulfasalazine 500 mg tablet 1,000 mg (2 x 500 mg) PO BID #360 08/26/24 11/15/24 11/14/24 Rx tabs furosemide 40 mg tablet See Rx Instructions .Route .COMPLEX 10/10/24 11/15/24 11/14/24 History rosuvastatin 20 mg tablet 20 mg PO BEDTIME 10/10/24 11/15/24 11/14/24 History sacubitril 49 mg-valsartan 51 mg 1 tab PO BID 10/10/24 11/15/24 11/14/24 History tablet (Entresto) spironolactone 25 mg tablet 12.5 mg PO QAM 11/06/24 11/15/24 11/14/24 History doxycycline hyclate 100 mg tablet 100 mg PO BID 11/15/24 11/15/24 11/14/24 History levofloxacin 500 mg tablet 500 mg PO DAILY 11/15/24 11/15/24 11/14/24 History levothyroxine 50 mcg tablet 50 mcg PO QAM 11/15/24 11/15/2411/14/25 History Allergies Allergy/AdvReac Type Severity Reaction Status Date / Time ciprofloxacin Allergy Unknown unknown Verified 08/26/24 10:52 Penicillins Allergy Unknown unknown Verified 08/26/24 10:52 simvastatin Allergy unknown Verified 08/26/24 10:52 allopurinol AdvReac itching Verified 08/26/24 10:52 lisinopril AdvReac cough Verified 08/26/24 10:52 PFSH Acute PFSH: Medical History (Updated 11/15/24 @ 17:50 by Rose Marie Dolan MD) Atrial fibrillation Lumbar stenosis with neurogenic claudication Degenerative disc disease Vertebral artery stenosis Aortic aneurysm Weakness Weakness of both lower extremities Lactic acidosis Fever of unknown origin Acute urinary retention Leg weakness History of nonmelanoma skin cancer Gout COVID-19 vaccine administered Macular degeneration Seropositive rheumatoid arthritis of multiple sites Immunization counseling High risk medication use Osteoarthritis of knees, bilateral Inflammatory arthritis Gout, arthritis Edema, peripheral Coronary arteriosclerosis after coronary artery bypass grafting CABG x2 (OLSON to LAD and SVG to OM, 05/08/2008) Cardiomyopathy LVEF has decreased from 45% to 35% by echocardiogram. Cataract Cardiac arrhythmia Pacemaker Dual-chamber Mixed hyperlipidemia last lipid panel 2020: Cholesterol 93, triglycerides 78, LDL 55. Thoracic aneurysm without mention of rupture Ascending aortic aneurysm 4.4cm by CT 07/2017 Essential hypertension Surgical History (Updated 11/15/24 @ 17:49 by Rose Marie Dolan MD) History of surgical removal of ganglion cyst Hx of cataract surgery S/p TAVR (transcatheter aortic valve replacement), bioprosthetic Hx of CABG Hx of appendectomy H/O foot surgery Family History Mother Dementia Other CAD (coronary artery disease) Diabetes Hyperlipidemia Hypertension Stroke Denies family history of Clotting disorder Psychiatric illness Chronic kidney disease (CKD) Suicide Anesthesia complication Bleeding disorder Family history of premature coronary artery disease Lung disease Cancer Social History Smoking and tobacco/nicotine status: never used tobacco/nicotine Alcohol intake: never Substance/Drug Use: never Household members: significant other Housing: House Vitals/I&O/Wt Last Vital Signs Temp 97.8 F 11/15/24 09:58 Pulse 82 11/15/24 12:46 Resp 29 H 11/15/24 12:46 BP 109/78 11/15/24 12:46 Pulse Ox 98 11/15/24 12:46 O2 Del Method Nasal Cannula 11/15/24 13:21 O2 Flow Rate 4 11/15/24 10:36 11/15/24 11/15/24 11/15/24 06:59 14:59 22:59 Intake Total 250 / 250 Balance 250 / 250 Weight last 48 hrs Weight 92.986 kg Physical Exam Narrative: GEN: Alert, no acute distress HEENT: Normocephalic, atraumatic, PERRLA Neck: Supple Respiratory: No respiratory distress, bibasilar crackles Cardio: Regular rate and rhythm, no murmur noted Abdomen: Soft, nontender, nondistended, normoactive bowel sounds : Indwelling Rutherford catheter in place, no CVA tenderness Extremity: Warm no edema Neuro: Alert, oriented x 3, no focal neurological deficits Skin: No rash or lesion Urinary Catheter Management: Rutherford: Cath Placed During This Visit: yes Urinary Catheter Date of Insertion: 11/15/24 Urinary Catheter Time of Insertion: 10:33 Data 11/15/24 10:15 11/15/24 10:15 Micro: Microbiology 11/15/24 10:15 Blood Culture - Preliminary Blood SPECIMEN COLLECTED 11/15/24 10:28 Blood Culture - Preliminary Blood SPECIMEN COLLECTED A&P Assessment and plan 1. Sepsis: Sepsis present on admission Leukocytosis, elevated lactic acid, and hypoxia Secondary to bilateral pneumonia and UTI Bolused with normal saline in the ED Follow-up urine blood cultures 2. Complicated UTI (urinary tract infection): He has bladder outlet obstruction He has had recurrent UTIs in the past 5 weeks Urine culture on 10/10/2024 grew ESBL E. coli UTI Switched to meropenem Follow-up urine culture 3. Bilateral pneumonia: Currently on 4 L/min O2, no home oxygen Chest x-ray showed bilateral infiltrates IV antibiotics as above Monitor O2 sats and wean oxygen as tolerated 4. Bladder outlet obstruction: He has seen urology who plans to do cystoscopy in the future 5. Weakness: Generalized weakness secondary to sepsis and UTI PT, OT consults 6. S/p TAVR (transcatheter aortic valve replacement), bioprosthetic: 7. Systolic and diastolic CHF, chronic: Clinically euvolemic at this time Caution with IV fluids Monitor I's and O's and daily weights LVEF was 35% on 08/22/2024 Continue metoprolol, Entresto, spironolactone, and Lasix Holding Farxiga given his UTI 8. Coronary arteriosclerosis after coronary artery bypass grafting: Status post CABG x 2 Continue Plavix 9. Atrial fibrillation: Rate controlled On metoprolol and Eliquis 10. Pacemaker: 11. Essential hypertension: Monitor blood pressure 12. Mixed hyperlipidemia: Rosuvastatin 13. PAD (peripheral artery disease): On Plavix 14. Gout, arthritis: Continue colchicine PDMP PDMP Reviewed: Not Reviewed Attestations Medical Necessity Statement*: He requires initial hospitalization for IV antibiotics, O2 monitoring, blood pressure monitoring, PT and OT Coding Level of Care Code Acute Code for Chg Fwd Diagnoses Sepsis A41.9 Complicated UTI (urinary tract infection) N39.0 Bilateral pneumonia J18.9 Bladder outlet obstruction N32.0 Weakness R53.1 S/p TAVR (transcatheter aortic valve replacement), bioprosthetic Z95.3 Systolic and diastolic CHF, chronic I50.42 Coronary arteriosclerosis after coronary artery bypass grafting I25.810 Atrial fibrillation I48.91 Pacemaker Z95.0 Essential hypertension I10 Mixed hyperlipidemia E78.2 PAD (peripheral artery disease) I73.9 Gout, arthritis M10.9
[2024-11-15 15:58] LABS: Troponin 5 6HR 38.67 ng/L (0-15)
[2024-11-15 16:00] VITALS: BP 104/63; PULSE 80; RESP 18; TEMP 37.6; O2SAT 94
[2024-11-15 16:01] LABS: Troponin 5 6HR Delta -1.33 ng/L (0-12)
--- NOTE | 2024-11-15 16:18 | ECG_ITS ---
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
[2024-11-15] MEDS: MEROPENEM 2,000 MG in sodium chloride 0.9% (plus) 50 ML 100 MG IV (18:58)
[2024-11-15 21:00] VITALS: BP 109/57; PULSE 81; RESP 17; TEMP 37.3; O2SAT 92
[2024-11-16] VITALS (12 sets, daily range): BP systolic 99–112; BP diastolic 58–70; PULSE 70–98; RESP 17–24; TEMP 36.7–37.2; O2SAT 84–95
--- NOTE | 2024-11-16 01:46 | PC.NURSE ---
Patients o2 sats dropped to 79% on 4L NC, this nurse placed patient on 10L via oxymask and brought o2 up to 92%. Nurse contacted RT for the assess and treat order that was placed today. Rt saw patient and administered a breathing treatment.
[2024-11-16] MEDS: MEROPENEM 2,000 MG in sodium chloride 0.9% (plus) 50 ML 100 MG IV ×2 (03:38→09:00)
[2024-11-16 04:37] LABS: Hematocrit 33.7 % (37-53); Hemoglobin 10.80 g/dL (11.27-16.99); Mean Corpuscular HGB Conc 32.0 g/dL (30-55); Mean Corpuscular Hemoglobin 31.9 pg (27-33); Mean Corpuscular Volume 99.4 fl (82-101); Platelet Count 182 10^3/cmm (157-399); Red Blood Count 3.39 10^6/uL (3.85-5.65); White Blood Count 12.73 10^3/uL (3.29-11.43)
[2024-11-16] MEDS: metoprolol succinate ER (24 HR) 25 mg Tablet 12.5 MG PO (04:51)
[2024-11-16 04:59] LABS: Anion Gap 17.8 (5-19); Blood Urea Nitrogen 22 mg/dL (8-23); Calcium 8.7 mg/dL (8.5-10.5); Carbon Dioxide 20 mmol/L (22-29); Chloride 102 mmol/L (98-107); Glucose 126 mg/dL (65-115); Osmolality Calculated 287 mOsm/kg (285-295); Potassium 3.8 mmol/L (3.5-5.1); Sodium 136 mmol/L (136-145)
[2024-11-16 05:03] LABS: Creatinine Clr Calc Pharmacy 46.3668
[2024-11-16 05:32] LABS: Slide Review Slide Review Perform
[2024-11-16] MEDS: FUROsemide 10 mg/mL SDV 4mL 40 MG IVP ×3 (06:47→16:02)
[2024-11-16 07:11] LABS: Absolute Segmented Neutrophil 10.7 10/cmm (1.6-7.1); Anisocytosis Trace; Band Neutrophils Absolute 0.9 10^3/cmm (0.0-1.2); Total Cells Counted 100 (0-100)
[2024-11-16 07:12] LABS: Atypical Lymphs 0.0 % (0-5)
--- NOTE | 2024-11-16 11:29 | P.PN_ITS ---
Subjective 2 Subjective: He does not use O2 at home. He was requiring 4 L/min O2 yesterday on admission. His oxygen requirement increased overnight. He is currently on 6 L/min O2. He received 40 mg of IV Lasix overnight. He reports improvement in his dyspnea. Medications: Reviewed: Yes Vitals/I&O/Wt Last Vital Signs Temp 98.9 F 11/16/24 07:34 Pulse 79 11/16/24 07:42 Resp 24 H 11/16/24 07:42 BP 110/60 11/16/24 07:34 Pulse Ox 95 11/16/24 07:42 O2 Del Method Oxymask 11/16/24 07:42 O2 Flow Rate 12 11/16/24 07:42 11/15/24 11/16/24 11/16/24 22:59 06:59 14:59 Intake Total 3050 / 3300 290 / 3590 290 / 290 Output Total 600 / 600 1700 / 2300 500 / 500 Balance 2450 / 2700 -1410 / 1290 -210 / -210 Weight last 48 hrs Weight 98.883 kg Weight 98.94 kg Weight 92.986 kg Physical Exam 2 Narrative: GEN: Alert, no acute distress HEENT: Normocephalic, atraumatic, PERRLA Neck: Supple Respiratory: No respiratory distress, bibasilar crackles Cardio: Regular rate and rhythm, no murmur noted Abdomen: Soft, nontender, nondistended, normoactive bowel sounds : Indwelling Rutherford catheter in place, no CVA tenderness Extremity: Warm no edema Neuro: Alert, oriented x 3, no focal neurological deficits Skin: No rash or lesion Urinary Catheter Management: Rutherford: Cath Placed During This Visit: yes Reason for Continuing Indwelling Catheter: Acute Urinary Retention or Obstruction Urinary Catheter Date of Insertion: 11/15/24 Urinary Catheter Time of Insertion: 10:33 Data 11/16/24 02:46 11/16/24 02:46 Micro: Microbiology 11/15/24 10:28 Blood Culture - Preliminary Blood NEGATIVE TO DATE 11/15/24 10:15 Blood Culture - Preliminary Blood NEGATIVE TO DATE A&P Assessment and plan 1. Sepsis: Sepsis present on admission Leukocytosis, elevated lactic acid, and hypoxia Procalcitonin was normal Has history of recurrent UTIs, urine culture growing yeast Blood cultures no growth to date 2. Complicated UTI (urinary tract infection): He has bladder outlet obstruction He has had recurrent UTIs in the past 5 weeks Urine culture on 10/10/2024 grew ESBL E. coli UTI Urine culture from admission growing yeast Will stop meropenem and start fluconazole Follow-up urine culture 3. Acute hypoxic respiratory failure: No home oxygen, currently on 6 L via oxygen While I thought he had pneumonia on admission I think that it is was probably decompensated CHF Monitor O2 sats and wean oxygen as tolerated 4. Acute on chronic heart failure with reduced ejection fraction (HFrEF, <= 40%) and combined systolic and diastolic dysfunction: LVEF 35% will switch to IV Lasix Continue metoprolol, Entresto, and spironolactone Holding Farxiga given his UTI Monitor I's and O's and daily weights Telemetry monitoring 5. Bladder outlet obstruction: He has seen urology who plans to do cystoscopy in the future 6. Weakness: Generalized weakness secondary to sepsis and UTI PT, OT consults 7. S/p TAVR (transcatheter aortic valve replacement), bioprosthetic: Aortic valve not well-visualized on echo done in August. 8. Coronary arteriosclerosis after coronary artery bypass grafting: Status post CABG x 2 Continue Plavix 9. Atrial fibrillation: Rate controlled On metoprolol and Eliquis 10. Pacemaker: 11. Essential hypertension: Monitor blood pressure 12. Mixed hyperlipidemia: Rosuvastatin 13. PAD (peripheral artery disease): On Plavix 14. Gout, arthritis: Continue colchicine 15. Hypothyroidism: TSH was 41 a month ago, will recheck Continue levothyroxine and adjust dose as needed Plan: CODE STATUS: DNR VTE prophylaxis: Apixaban GI prophylaxis: PDMP PDMP Reviewed: Not Reviewed Attestations 2 Medical Necessity Statement*: Patient requires continued hospitalization for IV diuresis, telemetry monitoring, and O2 monitoring. Coding Level of Care Code Acute Code for [facility] Fwd Diagnoses Sepsis A41.9 Complicated UTI (urinary tract infection) N39.0 Acute hypoxic respiratory failure J96.01 Acute on chronic heart failure with reduced ejection fraction (HFrEF, <= 40%) and combined systolic and diastolic dysfunction I50.43 Bladder outlet obstruction N32.0 Weakness R53.1 S/p TAVR (transcatheter aortic valve replacement), bioprosthetic Z95.3 Coronary arteriosclerosis after coronary artery bypass grafting I25.810 Atrial fibrillation I48.91 Pacemaker Z95.0 Essential hypertension I10 Mixed hyperlipidemia E78.2 PAD (peripheral artery disease) I73.9 Gout, arthritis M10.9 Hypothyroidism E03.9
[2024-11-16] MEDS: SACUBITRIL/VALSARTAN 49-51 TABLET 1 EACH PO (16:02)
[2024-11-16 16:11] LABS: Thyroid Stimulating Hormone 15.48 uIU/mL (0.27-4.20)
[2024-11-16] MEDS: cetylpyridinium Lozenge 1 EACH MUCOUS MEM (23:38)
[2024-11-17] VITALS (8 sets, daily range): BP systolic 88–113; BP diastolic 55–64; PULSE 71–83; RESP 15–20; TEMP 36.8–37.4; O2SAT 87–96
[2024-11-17 04:38] LABS: Hematocrit 33.0 % (37-53); Hemoglobin 10.90 g/dL (11.27-16.99); Mean Corpuscular HGB Conc 33.0 g/dL (30-55); Mean Corpuscular Hemoglobin 32.2 pg (27-33); Mean Corpuscular Volume 97.3 fl (82-101); Nucleated Red Blood Cells % 0 %; Platelet Count 173 10^3/cmm (157-399); Red Blood Count 3.39 10^6/uL (3.85-5.65); White Blood Count 8.12 10^3/uL (3.29-11.43)
[2024-11-17 05:05] LABS: Anion Gap 17.6 (5-19); Blood Urea Nitrogen 28 mg/dL (8-23); Calcium 8.7 mg/dL (8.5-10.5); Carbon Dioxide 25 mmol/L (22-29); Chloride 100 mmol/L (98-107); Glucose 215 mg/dL (65-115); Osmolality Calculated 300 mOsm/kg (285-295); Potassium 3.6 mmol/L (3.5-5.1); Sodium 139 mmol/L (136-145)
[2024-11-17 05:06] LABS: Creatinine Clr Calc Pharmacy 40.5597
[2024-11-17] MEDS: FUROsemide 10 mg/mL SDV 4mL 40 MG IVP (05:12)
[2024-11-17] MEDS: SACUBITRIL/VALSARTAN 49-51 TABLET 1 EACH PO (05:13)
[2024-11-17] MEDS: metoprolol succinate ER (24 HR) 25 mg Tablet 12.5 MG PO (05:13)
--- NOTE | 2024-11-17 12:57 | PM.DCS ---
Discharge Providers Date of Admission: 11/15/24 12:52 Date of Discharge: November 17, 2024 Attending Provider at Admission: Rose Marie Dolan MD Attending Provider at Discharge: Rose Marie Dolan MD Consults: None Primary Care Provider: Destin Chung MD Diagnoses at Discharge Discharge Diagnosis 1. Sepsis: 2. Complicated UTI (urinary tract infection): 3. Acute hypoxic respiratory failure: 4. Acute on chronic heart failure with reduced ejection fraction (HFrEF, <= 40%) and combined systolic and diastolic dysfunction: 5. Bladder outlet obstruction: 6. Weakness: 7. S/p TAVR (transcatheter aortic valve replacement), bioprosthetic: 8. Coronary arteriosclerosis after coronary artery bypass graftin. Persistent atrial fibrillation: 10. Pacemaker: 11. Essential hypertension: 12. Mixed hyperlipidemia: 13. PAD (peripheral artery disease): 14. Gout, arthritis: 15. Hypothyroidism: Reason for Visit Reason for Visit: Generalized weakness Brief History: Thong Salgado Jr is a 84 year old male with recurrent UTI, atrial fibrillation, CAD status post CABG x 2, chronic HFrEF, status post TAVR, thoracic aortic aneurysm, hyperlipidemia, and gout who presented with generalized weakness. He was diagnosed with bladder outlet obstruction on the day prior to admission. He was started on doxycycline for UTI. He reported that was about his fifth UTI in the month. A Rutherford catheter was placed in the ED. He was unable to stand or ambulate in the ED due to significant generalized weakness. UA was positive for UTI. He also reported mild dyspnea. He was hypoxic on room air and was placed on 4 L/min O2. Chest x-ray showed bibasilar opacities. Hospital Course Hospital Course He had evidence of sepsis on admission which has resolved. He was started on antibiotics for UTI. Urine cultures growing yeast. He was switched to fluconazole with the plan for total of 14 days of oral antibiotics. He had hematuria on admission which has resolved. An indwelling Rutherford catheter was placed in the ED. This was left in place on discharge. He will need to follow-up with urology as an outpatient. Initially thought he had pneumonia on admission but he had normal procalcitonin. He most likely had acute on chronic HFrEF. He was started on IV diuretics and he has had a good response to that. He does not require O2 at baseline. He was initially on 4 L/min O2 and required as much as 15 L/min O2. He was down to 5 L/min O2 on day of discharge. He was frustrated about requiring oxygen and did not want to stay any longer to titrated off. I discussed that I was not comfortable discharging him home on 5 L/min O2 given he was not on oxygen at baseline. He expressed desire to leave AGAINST MEDICAL ADVICE. He verbalized understanding of the risks of doing so. I informed him that I will not be able to prescribe him home oxygen if he left AGAINST MEDICAL ADVICE. He still wants to be discharged. He has hypothyroidism and was on levothyroxine 50 mcg daily. His TSH was significantly elevated. I have increased his levothyroxine to 70 mcg daily. Ultimately he will need to follow-up with his PCP, urology, and cardiology. Physical Exam Narrative: GEN: Alert, no acute distress HEENT: Normocephalic, atraumatic, PERRLA Neck: Supple Respiratory: No respiratory distress, bibasilar crackles Cardio: Regular rate and rhythm, no murmur noted Abdomen: Soft, nontender, nondistended, normoactive bowel sounds : Indwelling Rutherford catheter in place, no CVA tenderness Extremity: Warm, no edema Neuro: Alert, oriented x 3, no focal neurological deficits Skin: No rash or lesion Urinary Catheter Management: Rutherford: Cath Placed During This Visit: yes Reason for Continuing Indwelling Catheter: Acute Urinary Retention or Obstruction Urinary Catheter Date of Insertion: 11/15/24 Urinary Catheter Time of Insertion: 10:33 Discharge Data Studies Completed and Pending Completed Studies During Hospitalization Category Date Time Status XR chest 1V portable [id number] Stat Exams 11/15/24 10:00 Completed Pending at discharge Category Date Time Status Basic Metabolic Panel AM LABS Lab 11/18/24 04:00 Ordered Blood Culture Stat Lab 11/15/24 10:28 Results Complete Blood Count w/Auto AM LABS Lab 11/18/24 04:00 Ordered Urine Culture Stat Lab 11/15/24 10:25 Results Radiology Impressions Chest X-Ray 11/15/24 10:00 IMPRESSION: Bibasilar opacities. Laboratory Results WBC 8.12 10^3/uL (3.29-11.43) 11/17/24 04:31 RBC 3.39 10^6/uL (3.85-5.65) L 11/17/24 04:31 Hgb 10.90 g/dL (11.27-16.99) L 11/17/24 04:31 Hct 33.0 % (37-53) L 11/17/24 04:31 MCV 97.3 fl (82-101) 11/17/24 04:31 MCH 32.2 pg (27-33) 11/17/24 04:31 MCHC 33.0 g/dL (30-55) 11/17/24 04:31 RDW 13.7 % (12.1-15.1) 11/17/24 04:31 Plt Count 173 10^3/cmm (157-399) 11/17/24 04:31 MPV 8.8 fL (7.4-10.4) 11/17/24 04:31 Neut % (Auto) 83.1 % 11/17/24 04:31 Lymph % (Auto) 9.6 % 11/17/24 04:31 [place] % (Auto) 6.2 % 11/17/24 04:31 Eos % (Auto) 0.5 % 11/17/24 04:31 Baso % (Auto) 0.2 % 11/17/24 04:31 Neut # (Auto) 6.75 10^3/uL (1.8-7.7) 11/17/24 04:31 Lymph # (Auto) 0.8 10^3/uL (0.8-4.8) 11/17/24 04:31 [place] # (Auto) 0.5 10^3/uL (0.2-0.9) 11/17/24 04:31 Eos # (Auto) 0.0 10^3/uL (0.0-0.8) 11/17/24 04:31 Baso # (Auto) 0.0 10^3/uL (0.0-0.1) 11/17/24 04:31 Nucleated RBC % (auto) 0 % 11/17/24 04:31 Total Counted 100 (0-100) 11/16/24 02:46 Atypical Lymphs % 0.0 % (0-5) 11/16/24 02:46 Absolute Neutrophils 11.6 10^3/cmm (1.4-6.5) H 11/16/24 02:46 Segmented Neutrophils 84 % 11/16/24 02:46 Band Neutrophils 7.0 % 11/16/24 02:46 Absolute Lymphocytes 0.8 10^3/cmm (1.2-3.4) L 11/16/24 02:46 Lymphocytes (Manual) 6 % 11/16/24 02:46 Monocytes (Manual) 3.0 % 11/16/24 02:46 Absolute Monocytes 0.4 10^3/cmm (0.1-0.6) 11/16/24 02:46 Eosinophils (Manual) 0 % 11/16/24 02:46 Absolute Eosinophils 0.0 10^3/cmm (0.0-0.7) 11/16/24 02:46 Basophils (Manual) 0.0 % 11/16/24 02:46 Absolute Basophils 0.0 10^3/cmm (0.0-0.2) 11/16/24 02:46 Nucleated RBCs # 0.0 /100WBC 11/17/24 04:31 Platelet Estimate Normal (Normal) 11/16/24 02:46 Anisocytosis Trace 11/16/24 02:46 Sodium 139 mmol/L (136-145) 11/17/24 04:31 Potassium 3.6 mmol/L (3.5-5.1) 11/17/24 04:31 Chloride 100 mmol/L (98-107) 11/17/24 04:31 Carbon Dioxide 25 mmol/L (22-29) 11/17/24 04:31 Anion Gap 17.6 (5-19) 11/17/24 04:31 BUN 28 mg/dL (8-23) H 11/17/24 04:31 Creatinine 1.6 mg/dL (0.7-1.2) H 11/17/24 04:31 GFR Calculation Not Reportable 11/17/24 04:31 Glucose 215 mg/dL (65-115) H 11/17/24 04:31 Calculated Osmolality 300 mOsm/kg (285-295) H 11/17/24 04:31 Lactic Acid 2.3 mmol/L (0.5-2.2) H 11/15/24 10:15 Lactic Acid (Sepsis) 2.2 mmol/L (0.5-2.2) 11/15/24 12:08 Calcium 8.7 mg/dL (8.5-10.5) 11/17/24 04:31 Total Bilirubin 0.6 mg/dL (0.15-1.2) 11/15/24 10:15 AST 23 U/L (0-40) 11/15/24 10:15 ALT 19 U/L (0-41) 11/15/24 10:15 Alkaline Phosphatase 45 U/L (40-130) 11/15/24 10:15 Creatine Kinase 256 U/L (39-308) 11/15/24 10:15 Troponin T Baseline 40 ng/L (0-15) H 11/15/24 10:15 Troponin T 120 Minute 36.72 ng/L (0-15) H 11/15/24 12:08 Delta Troponin T -3.28 ABS# (0-10) L 11/15/24 12:08 Troponin T Hi Sens 6Hr 38.67 ng/L (0-15) H 11/15/24 15:31 Troponin T Hi Sens 6Hr Delta -1.33 ng/L (0-12) L 11/15/24 15:31 NT-Pro-B Natriuret Pep 1678 pg/mL (0-450) H 11/15/24 10:15 Total Protein 7.8 g/dL (6.6-8.7) 11/15/24 10:15 Albumin 5.0 g/dL (3.5-5.2) 11/15/24 10:15 Globulin 2.8 g/dL (1.3-4.6) 11/15/24 10:15 Lipase 19 U/L (13-60) 11/15/24 10:15 Procalcitonin 0.40 ng/mL (0-0.5) 11/15/24 10:15 TSH 15.48 uIU/mL (0.27-4.20) H 11/16/24 02:46 Urine Color Yellow (Yellow) 11/15/24 10: Urine Appearance Turbid (CLEAR) A 11/15/24 10: Urine pH 5.5 (5-7) 11/15/24 10:25 Ur Specific [place] 1.031 (1.005-1.030) H 11/15/24 10: Urine Protein 2+ (Negative) A 11/15/24: Urine Glucose (UA) 3+ (Normal) H 11/15/24 10:25 Urine Ketones Trace (Negative) 11/15/24 10:25 Urine Blood 3+ (Negative) A 11/15/24 10:25 Urine Nitrate Negative (Negative) 11/15/24 10:25 Urine Bilirubin Negative (Negative) 11/15/24 10:25 Urine Urobilinogen 0.2 mg/dL (Negative) 11/15/24 10:25 Ur Leukocyte Esterase 2+ (Negative) A 11/15/24 10:25 Urine RBC 15-25 /hpf (0-2) H 11/15/24 10:25 Urine WBC 55-80 /hpf (0-5) H 11/15/24 10:25 Ur Squamous Epith Cells 0-4 /hpf (0-5) H 11/15/24 10: Amorphous Sediment Not Reportable 11/15/24 10:25 Urine Bacteria Trace /hpf (NONE) 11/15/24 10:25 Urine Yeast 2+ /hpf H 11/15/24 10:25 Vitals Last Vital Signs Temp 98.3 F 11/17/24 11:43 Pulse 80 11/17/24 11:43 Resp 18 11/17/24 11:43 BP 97/61 11/17/24 11:43 Pulse Ox 96 11/17/24 11:43 O2 Del Method Nasal Cannula 11/17/24 11:43 O2 Flow Rate 6 11/17/24 07:19 Discharge Plan Discharge Patient Disposition: Home Condition: Fair Prescriptions: New fluconazole 100 mg Tablet 200 mg PO DAILY Qty: 12 0RF Continued Tart Kumar Extract 1,000 mg capsule 1,000 mg PO DAILY glucosamine HCl 1,500 mg tablet 1,500 mg PO DAILY ferrous gluconate 324 mg (37.5 mg iron) tablet 324 mg PO DAILY Eliquis 5 mg tablet 5 mg PO BID Qty: 180 3RF amiodarone 200 mg tablet 200 mg PO DAILY Qty: 180 3RF colchicine 0.6 mg tablet 0.6 mg PO DAILY Qty: 90 1RF febuxostat 40 mg tablet 80 mg PO DAILY Qty: 180 1RF Rx Instructions: 340B please, insurance denied sulfasalazine 500 mg tablet 1,000 mg PO BID Qty: 360 1RF metoprolol succinate 25 mg tablet extended release 24 hr 12.5 mg PO DAILY clopidogrel [Plavix] 75 mg tablet 75 mg PO DAILY Qty: 90 3RF Mag 64 64 mg tablet,delayed release (DR/EC) 64 mg PO BID Qty: 180 3RF dapagliflozin propanediol [Farxiga] 10 mg tablet 10 mg PO DAILY Qty: 90 3RF spironolactone 25 mg tablet 12.5 mg PO QAM ascorbic acid (vitamin C) [Vitamin C] 500 mg Tablet 500 mg PO DAILY omega-3 fatty acids 1,000 mg Capsule 1,000 mg PO BID vitamin B complex Tablet 1 tab PO DAILY multivit,Ca,noec-OZ-bnesjr-lut [id number] nr-[id number]-mcg Tablet 1 tab PO DAILY potassium citrate 99 mg Capsule 99 mg PO BID furosemide 40 mg tablet See Rx Instructions .ROUTE .COMPLEX Rx Instructions: TAKE 1 TABLET BY MOUTH EVERY MORNING and ONE TABLET SIX hours LATER. sacubitril-valsartan [Entresto] 49-51 mg tablet 1 tab PO BID rosuvastatin 20 mg tablet 20 mg PO BEDTIME Changed levothyroxine 50 mcg tablet 75 mcg PO QAM Qty: 30 0RF Discontinued levofloxacin 500 mg tablet 500 mg PO DAILY doxycycline hyclate 100 mg tablet 100 mg PO BID Discharge Order = DC NOW: Discharge Order (Routine); Ordered 11/17/24 Ordered By: Rose Marie Dolan Referrals: Jakub Olvera MD [Physician, Cardiology] - 1 month Destin Chung MD [Primary Care Provider, Family Practice] Discharge Diet: Usual diet Discharge Activity: Increase activity as tolerated Patient Instructions: Opioid Safety, Patient Portal & Tip Instructions Discharge Attestations Time Spent in Discharge Care*: greater than 30 min Status at Discharge: Cognitive status at discharge: cognitively intact, Behavioral status at discharge: cooperative, Quality Metrics Clinical Quality Measures [ No reported AMI, CVA or VTE this stay] Coding Level of Care Code Acute Code for [facility] Fwd Diagnoses Sepsis A41.9 Complicated UTI (urinary tract infection) N39.0 Acute hypoxic respiratory failure J96.01 Acute on chronic heart failure with reduced ejection fraction (HFrEF, <= 40%) and combined systolic and diastolic dysfunction I50.43 Bladder outlet obstruction N32.0 Weakness R53.1 S/p TAVR (transcatheter aortic valve replacement), bioprosthetic Z95.3 Coronary arteriosclerosis after coronary artery bypass grafting I25.810 Persistent atrial fibrillation I48.19 Atrial fibrillation type: persistent (not longstanding) Pacemaker Z95.0 Essential hypertension I10 Mixed hyperlipidemia E78.2 PAD (peripheral artery disease) I73.9 Gout, arthritis M10.9 Hypothyroidism E03.9
--- NOTE | 2024-11-17 13:51 | PC.NURSE ---
pt stated, you all aren't doing anything, i want to go home. Educ. pt that his oxygen requirement was significant amount to go home on. Pt still insisted on leaving. Pt was educ on continuing treatment benefits. he still wanted to leave. pt to leave with sierra cath per . pt educ on risks up to and including if he did leave ama. pt verbalized understanding and still wanted to leave. ama form signed and dr. cheng notified
--- NOTE | 2024-11-17 14:40 | PC.NURSE ---
Patient did not want to leave with sierra catheter in place. This nurse educated patient on risks associated with removing sierra and to follow-up with health care services if he experiences retention. Patient stated, I do not want to walk around with this thing for 4 weeks until I see my urologist . This nurse educated patient and then respected patient's wish to have the sierra removed.
--- NOTE | 2024-11-17 14:45 | PC.NURSE ---
In room to talk with patient about leaving against medical advice and going home without oxygen. Explained to patient that the doctor would like him to stay the night in the hospital tonight and possibly go home tomorrow day. Tonight he could receive one more IV antibiotic's and we could repeat a home oxygen evaluation to see if he would need oxygen for home. Patient states, One more day is not going to fix the need for me to not have oxygen at home and I do not get any rest here, I am ready to go home and I will call my primary care doctor tomorrow and ask him to order me oxygen. Explained to the patient that I did not want him to be short of breath at home and explained to him it could get bad and he might . Patient states, I want to live, I don't just want to be alive and I know you know the difference. Staying here one more night without getting to rest or getting my home medications is not want I want to do. I want to go home and rest. Dr. Dolan notified that patient has not changed his mind and wants to go home and would like to go home with oxygen if not he will call his primary care doctor to [facility] and ask him to order it.
--- NOTE | 2024-11-19 09:43 | PC.NURSE ---
Critical lab results that was reported to [facility] relayed over to Dr Jacobo for review by this [employer].
--- NOTE | 2024-11-19 11:52 | PC.NURSE ---
This HS attempted to reach pt @1152 regarding critical lab results at the request of Dr Jacobo. Pt did not answer phone X2 attempts. HS left a voicemail with HS call back number, and requesting that the patient return to ER for further evaluation for abnormal critical blood culture results. Dr Bearden made aware of attempts to reach patient without success.
== END 2024-11-17 14:50 | disposition left against medical advice (07) | DRG 871 ==
LOC: ER 10:41 → MEDSURG 12:52
PROVIDERS: Admitting Provider Student in an Organized Health Care Education/Training Program; Emergency Provider Family Medicine; PCP Family Medicine; Visit Provider Student in an Organized Health Care Education/Training Program
DX: A41.9 Sepsis, unspecified organism (principal); I50.43 Acute on chronic combined systolic (congestive) and diastolic (congestive) heart failure; J96.01 Acute respiratory failure with hypoxia; J18.9 Pneumonia, unspecified organism; N13.6 Pyonephrosis; B37.41 Candidal cystitis and urethritis; I48.19 Other persistent atrial fibrillation; I42.9 Cardiomyopathy, unspecified; I11.0 Hypertensive heart disease with heart failure; I25.10 Atherosclerotic heart disease of native coronary artery without angina pectoris; E78.2 Mixed hyperlipidemia; I73.9 Peripheral vascular disease, unspecified; M10.9 Gout, unspecified; E03.9 Hypothyroidism, unspecified; Z53.29 Procedure and treatment not carried out because of patient's decision for other reasons; M05.9 Rheumatoid arthritis with rheumatoid factor, unspecified; H35.30 Unspecified macular degeneration; I71.60 Thoracoabdominal aortic aneurysm, without rupture, unspecified; M48.062 Spinal stenosis, lumbar region with neurogenic claudication; R31.9 Hematuria, unspecified; Z79.02 Long term (current) use of antithrombotics/antiplatelets; Z79.01 Long term (current) use of anticoagulants; Z95.3 Presence of xenogenic heart valve; Z95.1 Presence of aortocoronary bypass graft; Z95.0 Presence of cardiac pacemaker; Z87.440 Personal history of urinary (tract) infections; Z85.828 Personal history of other malignant neoplasm of skin
CPT/HCPCS: 36415; 51702; 71045; 80048; 80053; 81001; 82550; 83605; 83690; 83880; 84145; 84443; 84484; 85007; 85025; 87040; 87086; 87106; 87150; 87205; 93005; 94640; 94664; 94760; 96365; 96375; 97161; 97165; 99285; J0456; J0696; J1938; J2185; J7030; J7050; J9999

== ENCOUNTER 2024-11-20 16:16 | Inpatient (IN) | payer MEDICARE, SELFPAY ==
--- OUTSIDE RECORDS SUMMARY | 1999-02-05 19:00 | XMS_ITS | Continuity of Care Document ---
Author Organization [facility] Address [address] [place] [address] Phone Care Team Providers Care Service Porter Name Role Phone No Information Unavailable Unavailable Medications Medication Instructions Dosage Effective Dates (start - stop) Status Comments No Drug Therapy Prescribed Advance Directives Directive Yes / No Effective Date File Name No Information Encounters Encounter Description Practice Location Reason(s) For Visit Diagnoses Date Provider Providers Copied on Encounter [facility], [address] [place] [address], [id number], [place] tel:[phone] No Information No Information Family History Family Member Type Diagnosis Age At Onset No Information Payers Payer name Insurance type Covered libertarian ID Authoriza tion(s) No Information Social History Type Description Quantity Date Captured Comments Sex Male Smoking Status No Information Chief Complaint And Reason For Visit No Information History Of Present Illness Encounter Date Complaint History Of Prese nt Illness No Information Medications Administered Medication Instructions Dosage Effective Dates (start - stop) Status Comments No Drug Therapy Prescribed Instructions Date Instruction Additional Infor mation No Information Assessments Type Assessment Date No Information
--- OUTSIDE RECORDS SUMMARY | 1999-02-05 19:00 | XMS_ITS | Continuity of Care Document ---
Author Organization [facility] Address [address] [place] [address] Phone Care Team Providers Care Glassware Maker Name Role Phone No Information Unavailable Unavailable Medications Medication Instructions Dosage Effective Dates (start - stop) Status Comments No Drug Therapy Prescribed Advance Directives Directive Yes / No Effective Date File Name No Information Encounters Encounter Description Practice Location Reason(s) For Visit Diagnoses Date Provider Providers Copied on Encounter [facility], [address] [place] [address], [id number], [place] tel:[phone] No Information No Information Family History Family Member Type Diagnosis Age At Onset No Information Payers Payer name Insurance type Covered constitution party ID Authoriza tion(s) No Information Social History [...]
--- OUTSIDE RECORDS SUMMARY | 2023-12-02 04:00 | XMS_ITS ---
Author Organization [facility] Address [address] [place] [address] Care Team Providers Care Resident Assistant Cna Name Role Phone Lyle Headley Primary Care Provider Unavailabl e Migration, Provider Unavailable Unavailable REASON FOR VISIT EMR-Shan Encounters Encounter Location Date Provider Diagnosis Migrated_Facility 0 0 12/02/2023 Provider Migration Plan Of Treatment No Information Progress Notes * Thong SALGADODOB:1940 (84 yo M)Acc No.[id number]:12/02/2023 Patient: Trenton ORLANDORyan Thong :1940 A ge:83 Y S ex:Male Address:[address] [place] [address], [place], [address] Subjective: * Chief Complaints: * E MR-Shan * * Date:
--- OUTSIDE RECORDS SUMMARY | 2023-12-02 04:00 | XMS_ITS ---
Author Organization [facility] Address [address] [place] [address] Care Team Providers Care Cruise Counselor Name Role Phone Lyle Headley Primary Care Provider Unavailabl e Migration, Provider Unavailable Unavailable REASON FOR VISIT EMR-Shan Encounters Encounter Location Date Provider Diagnosis Migrated_Facility 0 0 12/02/2023 Provider Migration Plan Of Treatment No Information Progress Notes * Thong SALGADODOB:1940 (84 yo M)Acc No.[id number]:12/02/2023 Patient: Trenton ORLANDORyan Thong :1940 A ge:83 Y S ex:Male Address:[address] [place] [address], [place], [address] Subjective: * Chief Complaints: * E MR-Shan * * Date:
--- OUTSIDE RECORDS SUMMARY | 2023-12-03 04:00 | XMS_ITS ---
Author Organization [facility] Address [address] [place] [address] Care Team Providers Care Bilingual Student Tutor Name Role Phone Lyle Headley Primary Care Provider Unavailabl e Migration, Provider Unavailable Unavailable REASON FOR VISIT EMR-Shan Encounters Encounter Location Date Provider Diagnosis Migrated_Facility 0 0 12/03/2023 Provider Migration Plan Of Treatment No Information Progress Notes * Thong SALGADODOB:1940 (84 yo M)Acc No.[id number]:12/03/2023 Patient: Trenton MERAZ Thong :1940 A ge:83 Y S ex:Male Address:[address] [place] [address], [place], [address] Subjective: * Chief Complaints: * E MR-Shan * * Date:
--- OUTSIDE RECORDS SUMMARY | 2023-12-03 04:00 | XMS_ITS ---
Author Organization [facility] Address [address] [place] [address] Care Team Providers Care Donor Processor Name Role Phone Lyle Headley Primary Care Provider Unavailabl e Migration, Provider Unavailable Unavailable REASON FOR VISIT EMR-Shan Encounters Encounter Location Date Provider Diagnosis Migrated_Facility 0 0 12/03/2023 Provider Migration Plan Of Treatment No Information Progress Notes * Thong SALGADODOB:1940 (84 yo M)Acc No.[id number]:12/03/2023 Patient: Trenton ORLANDORyan Thong :1940 A ge:83 Y S ex:Male Address:[address] [place] [address], [place], [address] Subjective: * Chief Complaints: * E MR-Shan * * Date:
--- OUTSIDE RECORDS SUMMARY | 2024-11-14 10:00 | XMS_ITS ---
Author Organization [facility] Address [address] [place] [address] Care Team Providers Care Cnc Supervisor Name Role Phone Destin Chung MD Primary Care Provider STEFAN Laughlin Unavailable [phone] SHELLY RIVERS Unavailable [phone] Allergies Allergen (clinical drug ingredient) Drug/Non Drug Allergy documented on EMR Reaction Allergy Type Onset Date Status ciprofloxacin Ciprofloxacin Unknown Drug Allergy Active Penicillin Unknown Drug Allergy Active Results Component Value Reference Range Notes Urinalysis, Routine Reviewed date:11/14/2024 02:47:01 PM Interpretation: Performing Lab: Notes/Report: Urine-Color yellow Appearance cloudy Glucose 3+ Bilirubin - Ketones - Specific [place] 1.015 Occult Blood 1+ pH 6.0 Urine Protein 1+ Urobilinogen,Semi-Qn - Nitrite, Urine - WBC Esterase 2+ REASON FOR VISIT cysto Medications Medication SIG (Take, Route, Frequency, Duration) Notes Start Date End Date Status Febuxostat Active Levothyroxine Sodium 50 MCG 1 tablet in the morning on an empty stomach Orally Once a day Active levoFLOXacin 500 MG 1 tablet Orally Once a day; Duration: 7 days 11/08/2024 11/15/2024 Active Entresto 49-51 MG 1 tablet Orally Twic e a day Active Isosorbide Dinitrate Active Colchicine 0.6 MG 1 tablet Orally Active Spironolactone 100 MG 1 tablet Orally On ce a day Active Furosemide 40 MG 1 tablet Orally Once a day Active Clopidogrel & Aspirin Active levoFLOXacin 500 MG 1 tablet Orally Once a day; Duration: 2 days 11/14/2024 11/16/2024 Active Doxycycline Hyclate 100 MG 1 capsule Ora lly twice a day; Duration: 10 days 11/14/2024 11/24/2024 Active Rosuvastatin Calcium 20 MG 1 tablet Oral ly Once a day Active sulfaSALAzine 500 MG 1 tablet Orally Onc e a day Active Metoprolol Succinate ER 25 MG 1 tablet Orally Once a day Active Amiodarone HCl 200 MG 1 tablet Orally On ce a day Active Farxiga 10 MG 1 tablet Orally Once a day Active Social History Tobacco Use: Social History Observation Description Date Details (start date - stop date) Never Smoker NA - NA Tobacco Control (Standard) Question Answer Notes Tobacco use: Nonsmoker Problems Problem Type SNOMED Code ICD Code Onset Dates Problem Status W/U Status Risk Notes Problem Lower urinary tract symptoms due to benign prostatic hypertrophy (16956179667532) Benign prostatic hyperplasia with lower urinary tract symptoms (N40.1) Active confirmed Problem Incomplete bladder emptying (893788319) Incomplete bladder emptying (R33.9) Active confirmed Problem Urine stream spraying (R39.198) Active confirmed Problem Urinary tract infectious disease (61489773) Complicated UTI (urinary tract infection) (N39.0) Active confirmed Problem Gross hematuria (069610150) Gross hematuria (R31.0) Active confirmed Vital Signs Blood pressure systolic 113 mm Hg 11/15/19 25 Blood pressure diastolic 65 mm Hg 025 Heart Rate 85 /min 11/14/2024 Height 69 in 11/14/2024 Weight 195 lbs 11/14/2024 BMI 28.79 kg/m2 11/14/2024 Height-cm 175.26 cm 11/14/2024 Weight-kg 88.45 kg 11/14/2024 195 Encounters Encounter Location Date Provider Diagnosis [facility] [address] [place] [address] 11/14/2024 SHELLY RIVERS Bladder mass N32.89 ; Benign prostatic hyperplasia with lower urinary tract symptoms N40.1 ; Establishing care with new doctor, encounter for Z76.89 ; Complicated UTI (urinary tract infection) N39.0 ; Gross hematuria R31.0 ; Urine stream spraying R39.198 and Incomplete bladder emptying R33.9 Assessments Encounter Date Diagnosis (ICD Code) Assessment Notes Treatment Notes Treatment Clinical Notes Section Notes 11/14/2024 Bladder mass (ICD-10 - N32.89) 84 yo male with rUTIs, hematuria, BPH with LUTS, weak stream and possible bladder mass on U/S. Cysto today shows cloudy debris filled urine with severe trabeculations, cellules and hypervascular trilobar obstructing prostate. Cysto findings reviewed with patient. I recommend a TURP to relieve his Bladder outlet obstruction and help him empty better. I believe he is continuing to get UTIs from poor emptying. How procedure is performed was reviewed along with risks, benefits, alternatives, and postprocedural expectations. All questions were sought and answered to pt satisfaction and pt is agreeable to proceed. Will schedule next available. Plan: obtain CC from Dr. Cruz in to hold plavix for surgery schedule TURP at main OR Rx Doxycycline 100mg bid x 7 days 11/14/2024 Benign prostatic hyperplasia with lower urinary tract symptoms (ICD-10 - N40.1) 84 yo male with rUTIs, hematuria, BPH with LUTS, weak stream and possible bladder mass on U/S. Cysto today shows cloudy debris filled urine with severe trabeculations, cellules and hypervascular trilobar obstructing prostate. Cysto findings reviewed with patient. I recommend a TURP to relieve his Bladder outlet obstruction and help him empty better. I believe he is continuing to get UTIs from poor emptying. How procedure is performed was reviewed along with risks, benefits, alternatives, and postprocedural expectations. All questions were sought and answered to pt satisfaction and pt is agreeable to proceed. Will schedule next available. Plan: obtain CC from Dr. Cruz in to hold plavix for surgery schedule TURP at main OR Rx Doxycycline 100mg bid x 7 days 11/14/2024 Establishing care with new doctor, encounter for (ICD-10 - Z76.89) 84 yo male with rUTIs, hematuria, BPH with LUTS, weak stream and possible bladder mass on U/S. Cysto today shows cloudy debris filled urine with severe trabeculations, cellules and hypervascular trilobar obstructing prostate. Cysto findings reviewed with patient. I recommend a TURP to relieve his Bladder outlet obstruction and help him empty better. I believe he is continuing to get UTIs from poor emptying. How procedure is performed was reviewed along with risks, benefits, alternatives, and postprocedural expectations. All questions were sought and answered to pt satisfaction and pt is agreeable to proceed. Will schedule next available. Plan: obtain CC from Dr. Cruz in to hold plavix for surgery schedule TURP at main OR Rx Doxycycline 100mg bid x 7 days 11/14/2024 Complicated UTI (urinary tract infection) (ICD-10 - N39.0) 84 yo male with rUTIs, hematuria, BPH with LUTS, weak stream and possible bladder mass on U/S. Cysto today shows cloudy debris filled urine with severe trabeculations, cellules and hypervascular trilobar obstructing prostate. Cysto findings reviewed with patient. I recommend a TURP to relieve his Bladder outlet obstruction and help him empty better. I believe he is continuing to get UTIs from poor emptying. How procedure is performed was reviewed along with risks, benefits, alternatives, and postprocedural expectations. All questions were sought and answered to pt satisfaction and pt is agreeable to proceed. Will schedule next available. Plan: obtain CC from Dr. Cruz in to hold plavix for surgery schedule TURP at main OR Rx Doxycycline 100mg bid x 7 days 11/14/2024 Gross hematuria (ICD-10 - R31.0) 84 yo male with rUTIs, hematuria, BPH with LUTS, weak stream and possible bladder mass on U/S. Cysto today shows cloudy debris filled urine with severe trabeculations, cellules and hypervascular trilobar obstructing prostate. Cysto findings reviewed with patient. I recommend a TURP to relieve his Bladder outlet obstruction and help him empty better. I believe he is continuing to get UTIs from poor emptying. How procedure is performed was reviewed along with risks, benefits, alternatives, and postprocedural expectations. All questions were sought and answered to pt satisfaction and pt is agreeable to proceed. Will schedule next available. Plan: obtain CC from Dr. Cruz in to hold plavix for surgery schedule TURP at main OR Rx Doxycycline 100mg bid x 7 days 11/14/2024 Urine stream spraying (ICD-10 - R39.198) 84 yo male with rUTIs, hematuria, BPH with LUTS, weak stream and possible bladder mass on U/S. Cysto today shows cloudy debris filled urine with severe trabeculations, cellules and hypervascular trilobar obstructing prostate. Cysto findings reviewed with patient. I recommend a TURP to relieve his Bladder outlet obstruction and help him empty better. I believe he is continuing to get UTIs from poor emptying. How procedure is performed was reviewed along with risks, benefits, alternatives, and postprocedural expectations. All questions were sought and answered to pt satisfaction and pt is agreeable to proceed. Will schedule next available. Plan: obtain CC from Dr. Cruz in to hold plavix for surgery schedule TURP at main OR Rx Doxycycline 100mg bid x 7 days 11/14/2024 Incomplete bladder emptying (ICD-10 - R33.9) 84 yo male with rUTIs, hematuria, BPH with LUTS, weak stream and possible bladder mass on U/S. Cysto today shows cloudy debris filled urine with severe trabeculations, cellules and hypervascular trilobar obstructing prostate. Cysto findings reviewed with patient. I recommend a TURP to relieve his Bladder outlet obstruction and help him empty better. I believe he is continuing to get UTIs from poor emptying. How procedure is performed was reviewed along with risks, benefits, alternatives, and postprocedural expectations. All questions were sought and answered to pt satisfaction and pt is agreeable to proceed. Will schedule next available. Plan: obtain CC from Dr. Cruz in to hold plavix for surgery schedule TURP at main OR Rx Doxycycline 100mg bid x 7 days Plan Of Treatment Medication Medication Name Sig Start Date Stop Date Notes levoFLOXacin 500 MG 1 tablet Orally Once a day; Duration: 2 days 11/14/2024 11/16/2024 Doxycycline Hyclate 100 MG 1 capsule Ora lly twice a day; Duration: 10 days 11/14/2024 11/24/2024 Next Appt Details Follow Up: post op, Reason: Provider Name:SHELLY Ortiz, 12/04/2024 09:00:00 AM, [address] [place], [address], Progress Notes * Thong HUITRON JrDOB: [birth year] (84 yo M)Acc No.[id number]:11/14/2024 Patient: Thong JOEL Jr Provider: Cash RIVERS MD :1940 A ge:84 Y S ex:Male Date:11/14/2024 Address:[address] [place] [address], [facility] Pcp:Destin Chung MD Subjective: * Chief Complaints: * 1 . Cysto. * HPI: M igrated HPI: Mr. Huitron is an 84 year old male new patient referred by Dr. Chung for possible bladder mass. He reports onset of gross hematuria and persistent UTI about 1.5 months ago. No urologic history prior to this. He has been treated with Cephalexin, Macrobid and now on Bactrim x 14 days. He has seen improvement in hematuria, dysuria has decreased but not resolved. Abd US on 10/15/24 revealed bladder trabeculations and a 2.3x.2.2x4.6 area in the posterior bladder, suspicious for mass. PVR 210ml. He reports having to sit to pee due to a spraying urinary stream ever since a catheterization at hospital 2 years ago. Here today for further evaluation of the anatomy with Cystoscopy. * ROS: G eneral / Constitutional: Patient denies c hange in appetite, fever, weakness. ? G enitourinary: Comments [facility] for details. * Medical History: A rthritis, Skin cancer, Heart disease, High cholesterol, High blood pressure, High thyroid, Stroke, AFIB, Bladder mass. * Surgical History: p nico maker , skin cancer removal , Appendectomy , Double bypass , Valve . * Hospitalization/Major Diagno stic Procedure: [facility] surgery hx . * Family History: S iblings: , heart problems, Diabetes. F ather: , stroke. M other: , diabetes, heart problems. * Social History: T obacco Use: T obacco Control (Standard) T obacco use: N onsmoker. * Medications: T aking Farxiga 10 MG Tablet 1 tablet Orally Once a day , Taking Metoprolol Succinate ER 25 MG Tablet Extended Release 24 Hour 1 tablet Orally Once a day , Taking Amiodarone HCl 200 MG Tablet 1 tablet Orally Once a day , Taking Rosuvastatin Calcium 20 MG Tablet 1 tablet Orally Once a day , Taking sulfaSALAzine 500 MG Tablet 1 tablet Orally Once a day , Taking Colchicine 0.6 MG Tablet 1 tablet Orally , Taking Spironolactone 100 MG Tablet 1 tablet Orally Once a day , Taking Furosemide 40 MG Tablet 1 tablet Orally Once a day , Taking Clopidogrel & Aspirin , Taking Febuxostat , Taking Entresto 49-51 MG Tablet 1 tablet Orally Twice a day , Taking Isosorbide Dinitrate , Taking Levothyroxine Sodium 50 MCG Tablet 1 tablet in the morning on an empty stomach Orally Once a day , Taking levoFLOXacin 500 MG Tablet 1 tablet Orally Once a day , stop date 11/15/2024, Medication List reviewed and reconciled with the patient * Allergies: P enicillin: Allergy, Ciprofloxacin: Allergy. Objective: * Vitals: B P: 113/65 mm Hg, HR: 85 /min, Wt: 195 lbs, Wt-k.45 kg, Ht: 69 in, Ht-cm: 175.26 cm, BMI: 28.79 Index, Body Surface Area: 2.07. 195. * Examination: G eneral Examination: General appearance: a lert, well-nourished and in no acute distress. Head: n ormocephalic, atraumatic. Neck / thyroid: s upple. Skin: w arm, dry, intact. Lungs: n on labored breathing. Chest: s ymmetric expansion. Abdomen: s oft, non distended, non tender. Back: n o CVA tenderness. Musculoskeletal: m oves all extremities well, normal strength. Extremities: n o clubbing, cyanosis, or edema. Neurologic: g rossly normal. Psych: n ormal mood and affect. Assessment: * Assessment: 1. B enign prostatic hyperplasia with lower urinary tract symptoms - N40.1 (Primary) 2 . B ladder mass - N32.89 3 . E stablishing care with new doctor, encounter for - Z76.89 4 . C omplicated UTI (urinary tract infection) - N39.0 & #160; 5 . G ross hematuria - R31.0 6 . U rine stream spraying - R39.198? 7. I ncomplete bladder emptying - R33.9 84 yo male with rUTIs, hemat uria, BPH with LUTS, weak stream and possible bladder mass on U/S. Cysto today shows cloudy debris filled urine with severe trabeculations, cellules and hypervascular trilobar obstructing prostate. Cysto findings reviewed with patient. I recommend a TURP to relieve his Bladder outlet obstruction and help him empty better. I believe he is continuing to get UTIs from poor emptying. How procedure is performed was reviewed along with risks, benefits, alternatives, and postprocedural expectations. All questions were sought and answered to pt satisfaction and pt is agreeable to proceed. Will schedule next available. Plan: obtain CC from Dr. Cruz in to hold plavix for surgery schedule TURP at main OR Rx Doxycycline 100mg bid x 7 days Plan: * Treatment: Value Reference Range U rine-Color yellow * A ppearance cloudy * G lucose 3+ * B ilirubin - * K etones - * S pecific [place] 1.015 * O ccult Blood 1+ * p H 6.0 * U rine Protein 1+ * U robilinogen,Semi-Qn - * N itrite, Urine - * W BC Esterase 2+ * Procedures: U rology: Cystoscopy: Consent: General procedure, indication, risks, benefits, alternative treatments, and expected outcomes have been discussed with this patient. He has had an opportunity to ask questions, and all questions have been answered by me. He verbalizes understanding, and to the best of my knowledge I feel the patient has been adequately informed and consented. The consent form has been signed. Pre-Op Diagnosis: BPH with LUTS, possible bladder mass, rUTIs Pre-procedure Urinalysis Dipstick UA obtained to rule out acute UTI. Procedure Cystoscopy: Preparation and technique: antibiotic prophylaxis given (quinolone), topical anesthesia 2% lidocaine jelly, patient position supine, bladder washing by Barbotage technique. Anterior Urethra: Normal. Prostatic Urethra: Trilobar obstruction, hypervascular, visualization poor due to bleeding Bladder: poor visualization, cloudy debris filled urine, no obvious tumors seen, severe trabeculations and cellules Trabeculations: Present, severe Post-Op Diagnosis: BPH with high grade prostate obstruction causing LUTS, rUTIs Post procedure: All the instruments were removed from the patient. The patient tolerated the procedure well and discharged from the office in good condition. All discharge instructions were reviewed with the patient and given in writing. * Procedure Codes: 8 1003 URINALYSIS, AUTO, W/O SCOPE, 25091 CYSTOSCOPY * Follow Up: p ost op * Billing Information: * Visit Code: * Procedure Codes: 75258 URINALYSIS, AUTO, W/O SCOPE. 82888 CYSTOSCOPY. * Sign off status: Completed true * Provider: Cash RIVERS MD Date: Generated for Elizabeth quiñonez/Kerry/Joeitting on: 04:25 PM CDT History and Physical Notes * Examination Category Sub-Category Detail Notes Category Not es General Examination General appearance: alert, w ell-nourished and in no acute distress Head: normocephalic, atrau matic Neck / thyroid: supple Chest: symmetric expansion Lungs: non labored breathin g Abdomen: soft, non distended, non tender Neurologic: grossly normal Skin: warm, dry, intact Extremities: no clubbing, cyanosi s, or edema Back: no CVA tenderness Musculoskeletal: moves all extremitie s well, normal strength Psych: normal mood and affe ct
--- OUTSIDE RECORDS SUMMARY | 2024-11-14 10:00 | XMS_ITS ---
Author Organization [facility] Address [address] [place] [address] Care Team Providers Care Shoe Stamper Name Role Phone Destin Chung MD Primary Care Provider STEFAN Laughlin Unavailable [phone] SHELLY RIVERS Unavailable [phone] Allergies Allergen (clinical drug ingredient) Drug/Non Drug Allergy documented on EMR Reaction Allergy Type Onset Date Status ciprofloxacin Ciprofloxacin Unknown Drug Allergy Active Penicillin Unknown Drug Allergy Active Results Component Value Reference Range Notes Urinalysis, Routine Reviewed date:11/14/2024 02:47:01 PM Interpretation: Performing Lab: Notes/Report: Urine-Color yellow Appearance cloudy Glucose 3+ Bilirubin - Ketones - Specific [place] 1.015 Occult Blood 1+ pH 6.0 Urine [...] Entresto 49-51 MG 1 tablet Orally Twic a day Active Isosorbide Dinitrate Active Colchicine [...] tract symptoms due to benign prostatic hypertrophy (49303622310213) Benign prostatic hyperplasia with lower urinary tract symptoms (N40.1) Active confirmed Problem Incomplete bladder emptying (593825401) Incomplete bladder emptying (R33.9) Active confirmed Problem Urine stream spraying (R39.198) Active confirmed Problem Urinary tract infectious disease (90631059) Complicated UTI (urinary tract infection) (N39.0) Active confirmed Problem Gross hematuria (144037468) Gross hematuria (R31.0) Active confirmed Vital Signs Blood pressure systolic 113 mm Hg 11/15/19 25 Blood pressure diastolic 65 mm Hg 025 Heart Rate 85 /min 11/14/2024 Height 69 in 11/14/2024 Weight 195 lbs 11/14/2024 BMI 28.79 kg/m2 11/14/2024 Height-cm 175.26 cm 11/14/2024 Weight-kg 88.45 kg 11/14/2024 195 Encounters Encounter Location Date Provider Diagnosis [facility] [address] [place] [address] 11/14/2024 SHELLY RIVERS Bladder mass N32.89 ; [...] Ortiz, 12/04/2024 09:00:00 AM, [address] [place], [address], Progress Notes * Thong HUITRON JrDOB: [birth year] (84 yo M)Acc No.[id number]:11/14/2024 Patient: Thong JOEL Jr Provider: Cash RIVERS MD :1940 A ge:84 Y S ex:Male Date:11/14/2024 Address:[address] [place] [address], [facility] Pcp:Destin Chung MD Subjective: * Chief Complaints: [...] appetite, fever, weakness. ? G enitourinary: Comments [facility] for details. * Medical History: A rthritis, Skin cancer, Heart disease, High cholesterol, High blood pressure, High thyroid, Stroke, AFIB, Bladder mass. * Surgical History: p nico maker , skin cancer removal , Appendectomy , Double bypass , Valve . * Hospitalization/Major Diagno stic [place] [facility] [place] . * Family History: S [...] * K etones - * S pecific [place] 1.015 * O ccult Blood 1+ * [...] Codes: 8 1003 URINALYSIS, AUTO, W/O SCOPE, 09824 CYSTOSCOPY * Follow Up: p ost op * Billing Information: * Visit Code: * Procedure Codes: 07187 URINALYSIS, AUTO, W/O SCOPE. 51345 CYSTOSCOPY. * Sign off status: Completed true * Provider: Cash RIVERS MD Date: Generated for Elizabeth quiñonez/Kerry/Joeitting on: 06:10 AM CDT History and Physical Notes * Examination [...]
--- OUTSIDE RECORDS SUMMARY | 2024-11-20 16:25 | XMS_ITS | Continuity of Care Document ---
Author Organization [place] - Colin Grider [facility] Polly, LYousif, [facility] ([facility] [address]) Address [address] [place] [address] Care Team Providers Care Jewel Supervisor Name Role Phone JERARDO CHUNG Primary Care Provider [phone] Assessment Encounter Date Assessment Date Assessment LastModified by Organization Details LastModified Time 11/19/2024 11/19/2024 d/c fluconazole as your particular fungal infection is inherently resistant. [email or web address] Not available 11/19/2024 09:58:38 Plan of Treatment Reminders Order Date Submit Date Provider Last Modified By Organization Details Last Modified Time Details Appointments OFFICE VISIT CHUNG 2024 09:45A M Jerardo Chung MD Not available Not available Not available Lab None recorded . Referral None recorded . Procedures None recorded . Surgeries None recorded . Imaging None recorded . Medication Orders None recorded . Patient TargetsNo targets recorded. Patient InstructionsNo instructions recorded. Reason for Referral None Reported. Results Created Date Observation Date Name Description Value Unit Range Abnormal Flag Note LastModifiedBy Organization Detail LastModifiedTime 10/29/1910/28/2024 URINA LYSIS WITH MICRO color YELLOW Not Available [facility] [address] [facility] [address], [place], [address], 10/28/2024 11:29:59 10/29/1910/28/2024 URINA LYSIS WITH MICRO clarity CLOUDY abnormal Not Available Colin Kuhn [facility] [address], [place], [address], 10/28/2024 11:29:59 10/29/1910/28/2024 URINA LYSIS WITH MICRO glu 2+ abnormal Not Available [facility] [address], [place], [address], 10/28/2024 11:29:59 10/29/19 25 10/28/2024 URINA LYSIS WITH MICRO bili NEGATI VE Not Available [facility] [address], [place], [address], 10/28/2024 11:29:59 10/29/19 25 10/28/2024 URINA LYSIS WITH MICRO ket NEGATI VE Not Available [facility] [address] [facility] 1, [place], [address], 10/28/2024 11:29:59 10/29/19 25 10/28/2024 URINA LYSIS WITH MICRO S.g 1.015 Not Available [facility] [address] [facility], [place], [address], 10/28/2024 11:29:59 10/29/19 25 10/28/2024 URINA LYSIS WITH MICRO pH 6.5 Not Available [facility] [address] [facility] 1, [place], [address], 10/28/2024 11:29:59 10/29/19 25 10/28/2024 URINA LYSIS WITH MICRO pro 1+ abnormal Not Available [facility] [address] [facility] 1, [place], [address], 10/28/2024 11:29:59 10/29/19 25 10/28/2024 URINA LYSIS WITH MICRO uro 0.2 E.U./D L Not Available [facility] [address] [facility], [place], [address], 10/28/2024 11:29:59 10/29/19 25 10/28/2024 URINA LYSIS WITH MICRO nit NEGATI VE Not Available [facility] [address] [facility], [place], [address], 10/28/2024 11:29:59 10/29/19 25 10/28/2024 URINA LYSIS WITH MICRO blo TRACE- INTACT abnormal Not Available [facility] [address] [facility], [place], [address], 10/28/2024 11:29:59 10/29/19 25 10/28/2024 URINA LYSIS WITH MICRO bryanna 3+ abnormal Not Available [facility] [address] [facility], [place], [address], 10/28/2024 11:29:59 10/29/19 25 10/28/2024 URINA LYSIS WITH MICRO WBC 100 abnormal > Not Available [facility] [address] [facility] 1, [place], [address], 10/28/2024 11:29:59 10/29/19 25 10/28/2024 URINA LYSIS WITH MICRO RBC 15-20 abnormal Not Available [facility] [address] [facility] 1, [place], [address], 10/28/2024 11:29:59 10/29/19 25 10/28/2024 URINA LYSIS WITH MICRO epi cells NEGATI VE Not Available [facility] [address] [facility], [place], [address], 10/28/2024 11:29:59 10/29/19 25 10/28/2024 URINA LYSIS WITH MICRO bacteria TRACE OF AMORPH OUS abnormal Not Available [facility] [address] [facility], [place], [address], 10/28/2024 11:29:59 10/29/19 25 10/28/2024 URINA LYSIS WITH MICRO other NG Not Available [facility] [address] [facility] 1, [place], [address], 10/28/2024 11:29:59 10/29/1910/30/2024 CULTU RE, URINE , ROUTI NE culture, urine, routine SEE NOTE CULTU RE, URINE , ROUTI NE Micro Numbe r: [id number] Test Statu s: Final Speci men Sourc e: Urine , clean catch Speci men Quali ty: Adequ ate Resul t: Mixed genit al claudio isola french. These super ficia l bacte katrina are not indic ative of a urina ry tract infec tion. No furth er organ ism ident ifica tion is warra nted on this speci men. If clini chuck indic ated, recol lect clean -catc h, mid-s tream urine and trans elizabeth immed iatel y to Urine Cultu re Trans port Tube. Not Available [facility] [address] [place], [address], 10/30/2024 02:53:06 11/05/1911/04/2024 CMP (MALE ) glucose 154.0 mg/dL 60.0-9 9.0 high Not Available [facility] [address] [facility] 1, [place], [address], 11/04/2024 11:00:08 11/05/1911/04/2024 CMP (MALE ) BUN (blood urea nitrogen) 23.0 mg/dL 10.0-2 6.0 Not Available [facility] [address] [facility] 1, [place], [address], 11/04/2024 11:00:08 11/05/1911/04/2024 CMP (MALE ) creatinine (serum) 2.1 mg/dL 0.4-1. 5 high Not Available [facility] [address] [facility] 1, [place], [address], 11/04/2024 11:00:08 11/05/1911/04/2024 CMP (MALE ) BUN/creatini ne ratio 10.95 ratio Not Available [facility] [address] [facility] 1, [place], [address], 11/04/2024 11:00:08 11/05/1911/04/2024 CMP (MALE ) eGFR calculated 32.2 Not Available [facility] [address] [facility] 1, [place], [address], 11/04/2024 11:00:08 11/05/1911/04/2024 CMP (MALE ) total protein 8.4 g/dL 6.0-8. 5 Not Available [facility] [address] [facility] 1, [place], [address], 11/04/2024 11:00:08 11/05/1911/04/2024 CMP (MALE ) total bilirubin 0.6 mg/dL 0.2-1. 3 Not Available [facility] [address] [facility] 1, [place], [address], 11/04/2024 11:00:08 11/05/1911/04/2024 CMP (MALE ) albumin 5.0 g/dL 3.5-5. 5 Not Available [facility] [address] [facility] 1, [place], [address], 11/04/2024 11:00:08 11/05/1911/04/2024 CMP (MALE ) globulin 3.4 calc Not Available [facility] [address] [facility], [place], [address], 11/04/2024 11:00:08 11/05/1911/04/2024 CMP (MALE ) AST (SGOT) 34.0 U/L 0.0-46 .0 Not Available [facility] [address] [facility] 1, [place], [address], 11/04/2024 11:00:08 11/05/1911/04/2024 CMP (MALE ) altv (SGPT) 25.0 U/L 13.0-6 9.0 normal Not Available [facility] [address] [facility], [place], [address], 11/04/2024 11:00:08 11/05/1911/04/2024 CMP (MALE ) A/G ratio 1.5 ratio Not Available [facility] [address] [facility] 1, [place], [address], 11/04/2024 11:00:08 11/05/1911/04/2024 CMP (MALE ) ALP phos 51.0 U/L 30.0-1 40.0 normal Not Available [facility] [address] [facility] 1, [place], [address], 11/04/2024 11:00:08 11/05/1911/04/2024 CMP (MALE ) calcium 9.8 mg/dL 8.4-10 .5 Not Available [facility] [address] [facility] 1, [place], [address], 11/04/2024 11:00:08 11/05/1911/04/2024 CMP (MALE ) sodium 139.0 mmol/ L 136.0- 145.0 Not Available [facility] [address] [facility] 1, [place], [address], 11/04/2024 11:00:08 11/05/1911/04/2024 CMP (MALE ) potassium 4.4 mmol/ L 3.5-5. 1 Not Available [facility] [address] [facility] 1, [place], [address], 11/04/2024 11:00:08 11/05/1911/04/2024 CMP (MALE ) chloride 101.0 mmol/ L 98.0-1 10.0 normal Not Available [facility] [address] Mart[address]nez [facility] 1, [place], [address], 11/04/2024 11:00:08 11/05/19 25 11/04/2024 CMP (MALE ) C02 23.0 mmol/ L 22.0-3 1.0 Not Available [facility] [address] [facility] 1, [place], [address], 11/04/2024 11:00:08 11/05/19 25 11/04/2024 CMP (MALE ) anion gap 15.0 calc Not Available Colin [facility]k [facility] [address] [facility] 1, [place], [address], 11/04/2024 11:00:08 11/05/19 25 11/04/2024 CMP (MALE ) osmolality 293.4 calc Not Available [facility] [address] [facility] 1, [place], [address], 11/04/2024 11:00:08 11/05/1911/04/2024 CBC WBC 4.6 x10 4.5-10 .5 Not Available [facility] [address] [facility] 1, [place], [address], 11/04/2024 11:14:48 11/05/1911/04/2024 CBC RBC 3.97 x10 4.30-5 .90 low Not Available [facility] [address] [facility] 1, [place], [address], 11/04/2024 11:14:48 11/05/1911/04/2024 CBC HGB 12.7 g/dL 13.5-1 8.0 low Not Available [facility] [address] [facility] 1, [place], [address], 11/04/2024 11:14:48 11/05/1911/04/2024 CBC HCT 39.9 % 35.0-6 0.0 Not Available [facility] [address] Martí[address] [facility] 1, [place], [address], 11/04/2024 11:14:48 11/05/1911/04/2024 CBC MCV 100.6 fL 80.0-9 9.9 high Not Available [facility] [address] Mart[address] [facility] 1, [place], [address], 11/04/2024 11:14:48 11/05/1911/04/2024 CBC MCH 32.0 pg 27.0-3 2.0 Not Available [facility] [address] Mart[address] [facility] 1, [place], [address], 11/04/2024 11:14:48 11/05/1911/04/2024 CBC MCHC 31.9 g/dL 32.0-3 6.0 low Not Available [facility] [address] Mart[address] [facility] 1, [place], [address], 11/04/2024 11:14:48 11/05/1911/04/2024 CBC RDW 13.1 % 11.5-1 4.5 Not Available [facility] [address] [facility] 1, [place], [address], 11/04/2024 11:14:48 11/05/1911/04/2024 CBC plt 277.0 x10 150.0- 451.0 Not Available [facility] [address] [facility] 1, [place], [address], 11/04/2024 11:14:48 11/05/1911/04/2024 CBC lymphocytes % 29.4 % 20.0-5 0.0 Not Available [facility] [address] Mart[address] [facility] 1, [place], [address], 11/04/2024 11:14:48 11/05/19 25 11/04/2024 CBC granulcytes % 56.8 % 30.0-7 0.0 Not Available [facility] [address] Mart[address] [facility] 1, [place], [address], 11/04/2024 11:14:48 11/05/1911/04/2024 CBC monocytes % 10.0 % 2.0-16 .0 Not Available [facility] [address] [facility] 1, [place], [address], 11/04/2024 11:14:48 11/05/1911/04/2024 CBC granulcytes# 2.6 x10 Not Nola ilable [facility] [address] [facility] 1, [place], [address], 11/04/2024 11:14:48 11/05/1911/04/2024 CBC lymphocytes # 1.3 x10 Not Available [facility] [address] [facility] 1, [place], [address], 11/04/2024 11:14:48 11/05/1911/04/2024 CBC monocytes # 0.5 x10 Not Avai lable [facility] [address] [facility] 1, [place], [address], 11/04/2024 11:14:48 11/05/1911/04/2024 HBA1C hemaglobin A1C 6.8 4.2-6. 5 high Not Available [facility] [address] [facility] 1, [place], [address], 11/04/2024 11:14:53 11/05/19 25 11/04/2024 TSH TSH 12.78 uIU/m L 0.49-3 .82 high Not Available [facility] [address] [facility] 1, [place], [address], 11/04/2024 12:44:48 11/05/1911/05/2024 URIC ACID uric acid 6.1 mg/dL 4.0-8. 0 normal Thera peuti c targe t for gout patie nts: <6.0 mg/dL Not Available [facility] [address] [place], [address], 11/05/2024 13:58:13 11/05/19 25 11/05/2024 ALBUM IN, RANDO M URINE W/CRE ATINI NE creatinine, random urine 48 mg/dL 20-320 normal Not Available [facility] [place] [address] [place], [address], 11/05/2024 13:58:14 11/05/19 25 11/05/2024 ALBUM IN, RANDO M URINE W/CRE ATINI NE albumin, urine 16.4 mg/dL see note: normal Refer ence Range : Refer ence Range Not estab lishe d Not Available [facility] [address] [address] , [place], [address], 11/05/2024 13:58:14 11/05/19 25 11/05/2024 ALBUM IN, RANDO M URINE W/CRE ATINI NE albumin/crea tinine ratio, random urine 342 mg/g_ creat <30 high The ADA defin es abnor malit ies in album in excre tion as follo ws: Album inuri a Categ ory Resul t (mg/g creat inine ) Lashawn l to Mildl y incre ased <30 Moder ately incre ased 30-29 9 Sever magaly incre ased > OR = 300 The ADA recom mends that at least two of three speci mens colle cted withi n a 3-6 month perio d be abnor mal befor e consi donato g a patie nt to be withi n a diagn ostic categ ory. Not Available [facility] [address] [place], [address], 11/05/2024 13:58:14 11/05/19 25 11/05/2024 C-JESSA CTIVE PROTE IN C-reactive protein <3.0 mg/L <8.0 normal Not Available [facility] [address] [place], [address], 11/05/2024 13:58:14 11/05/19 25 11/05/2024 T4, FREE T4, free 0.8 NG/dL 0.8-1. 8 normal Not Available [facility] [address] [address] , [place], [address], 11/05/2024 13:58:14 11/05/19 25 11/05/2024 B TYPE NATRI URETI C PEPTI DE (BNP) B type natriuretic peptide (BNP) 179 pg/mL <100 high BNP level s incre ase with age in the gener al popul ation with the highe st value s seen in indiv idual s great er than 75 years of age. Refer ence: J. Am. Simona. Cardi ol. 2002; 40:97 6-982 . Not Available [facility] [address] [address], [place], [address], 11/05/2024 13:58:15 11/06/19 25 11/05/2024 ESR (eryt hrocy te sedim entat ion rate) , blood SedRate 25 Not Available [facility] ([facility]) [address] [place], [address], 11/04/2024 10:05:43 11/19/19 25 11/18/2024 CMP (MALE ) glucose 177.0 mg/dL 60.0-9 9.0 high Not Available [facility] [address], [address], 11/18/2024 10:13:51 11/19/19 25 11/18/2024 CMP (MALE ) BUN (blood urea nitrogen) 40.0 mg/dL 10.0-2 6.0 high Not Available [facility] [address] Martí[address] [facility] 1, [place], [address], 11/18/2024 10:13:51 11/19/19 25 11/18/2024 CMP (MALE ) creatinine (serum) 1.9 mg/dL 0.4-1. 5 high Not Available [facility] [address] [facility], [place], [address], 11/18/2024 10:13:51 11/19/1911/18/2024 CMP (MALE ) BUN/creatini ne ratio 21.05 ratio Not Available [facility] [address] [facility] 1, [place], [address], 11/18/2024 10:13:51 11/19/1911/18/2024 CMP (MALE ) eGFR calculated 36.2 Not Available [facility] [address] [facility], [place], [address], 11/18/2024 10:13:51 11/19/1911/18/2024 CMP (MALE ) total protein 7.5 g/dL 6.0-8. 5 Not Available [facility] [address] [facility], [place], [address], 11/18/2024 10:13:51 11/19/19 25 11/18/2024 CMP (MALE ) total bilirubin 0.9 mg/dL 0.2-1. 3 Not Available [facility] [address] [facility] 1, [place], [address], 11/18/2024 10:13:51 11/19/19 25 11/18/2024 CMP (MALE ) albumin 4.1 g/dL 3.5-5. 5 Not Available [facility] [address] [facility], [place], [address], 11/18/2024 10:13:51 11/19/19 25 11/18/2024 CMP (MALE ) globulin 3.4 calc Not Available [facility] [address] [facility] 1, [place], [address], 11/18/2024 10:13:51 11/19/19 25 11/18/2024 CMP (MALE ) AST (SGOT) 63.0 U/L 0.0-46 .0 high Not Available [facility] [address] [facility] 1, [place], [address], 11/18/2024 10:13:51 11/19/1911/18/2024 CMP (MALE ) altv (SGPT) 48.0 U/L 13.0-6 9.0 normal Not Available [facility] [address] [facility] 1, [place], [address], 11/18/2024 10:13:51 11/19/19 25 11/18/2024 CMP (MALE ) A/G ratio 1.2 ratio Not Available [facility] [address] [facility] 1, [place], [address], 11/18/2024 10:13:51 11/19/19 25 11/18/2024 CMP (MALE ) ALP phos 45.0 U/L 30.0-1 40.0 normal Not Available [facility] [address] [facility] 1, [place], [address], 11/18/2024 10:13:51 11/19/19 25 11/18/2024 CMP (MALE ) calcium 9.0 mg/dL 8.4-10 .5 Not Available [facility] [address] [facility] 1, [place], [address], 11/18/2024 10:13:51 11/19/19 25 11/18/2024 CMP (MALE ) sodium 134.0 mmol/ L 136.0- 145.0 low Not Available [facility] [address], [place], [address], 11/18/2024 10:13:51 11/19/1911/18/2024 CMP (MALE ) potassium 3.3 mmol/ L 3.5-5. 1 low Not Available [facility] [address] [facility] 1, [place], [address], 11/18/2024 10:13:51 11/19/1911/18/2024 CMP (MALE ) chloride 98.0 mmol/ L 98.0-1 10.0 normal Not Available [facility] [address] [facility] 1, [place], [address], 11/18/2024 10:13:51 11/19/1911/18/2024 CMP (MALE ) C02 26.0 mmol/ L 22.0-3 1.0 Not Available [facility] [address] [facility] [address], [place], [address], 11/18/2024 10:13:51 11/19/1911/18/2024 CMP (MALE ) anion gap 10.0 calc Not Available [facility] [address] [facility] 1, [place], [address], 11/18/2024 10:13:51 11/19/1911/18/2024 CMP (MALE ) osmolality 290.2 calc Not Available [facility] [address] [facility] 1, [place], [address], 11/18/2024 10:13:51 Result Notes None recorded. Problems Name Problem SNOMED Code Status Onset Date Resolution Date Notes Provider Name and Address Organization Details Recorded Time Transeso phageal echocard iography Completed 202010/22/2020 echocard iogram 04/2008 - Status is Resolved ; diastoli c CHF, EF 50%; Resolved Date: 10/23/19 21; 10/23/19 9:23AM by Nicole Chung PA-C, Annotati on/Adden dum; Promoted ; acuity set as *; echocar diogram 04/2010 - Status is Inactive ; diminisc hed LVEF 45-50%, multiple wall motion abnormal ities, grade I diastoli c dysfunct ion, moderate tricuspi d regurgit ation, estimate d PA pressure 34mmHg, slight worsenin g of the TR.; 10/23/19 9:23AM by Nicole Chung PA-C, Annotati on/Adden dum; Promoted ; acuity set as *; Not Available [facility] 3 03:10:27 Benign hyperten pauline [id number] Completed 202010/22/2020 HTN - Status is Inactive ; 10/23/19 9:23AM by Nicole Chung PA-C, Annotati on/Adden dum; Promoted ; acuity set as *; Not Available [facility] 3 03:10:27 General examinat ion of patient Completed 202111/18/2021 GENERAL MEDICAL EXAM - Status is Inactive ; Recorded 11/19/19 12:44PM by Janis Jesus LPN, Annotati on/Adden dum; Promoted ; acuity set as *; Not Available [facility] 3 03:10:27 Body mass index 25-29 - [place] [id number] Active 2022 BODY MASS INDEX (BMI) 28.0-28. 9, ADULT; Recorded 03/11/19 23 8:52AM by Janis Jesus LPN, Office Visit; Promoted ; acuity set as *; BMI 28.0-28. 9,ADULT - Status is Inactive ; Recorded 01/05/20 22 6:50AM by Naomi Long LPN, Annotati on/Adden dum; Promoted ; acuity set as *; ; Start Date : 01/05/20 Radha garcía, [facility].C 5 23:20:42 Aortic stenosis , non-rheu matic [id number] Active 2022 SEVERE AORTIC STENOSIS ; Recorded 03/11/19 8:52AM by Janis Jesus LPN, Office Visit; Promoted ; acuity set as *; SEVERE AORTIC STENOSIS ; Story: valve replacem ent; Recorded 07/01/19 4:30PM by Naomi Long LPN, Annotati on/Adden dum; Promoted ; acuity set as *; ; Start Date : 07/01/19 MILD AORTIC STENOSIS - Status is Inactive ; Recorded 11/20/19 10:14AM by Jerardo Chung MD, Annotati on/Adden dum; Promoted ; acuity set as *; ; Start Date : 11/20/19 Radha garcía [facility] 5 23:20:43 Anemia 527814132 Active 2022 ANEMIA; Recorded 03/11/19 8:52AM by Janis Jesus LPN, Office Visit; Promoted ; acuity set as *; Radha garcía [facility] 5 23:20:43 Carotid artery stenosis 13519159 Active 2022 Radha garcía [facility] 5 23:20:43 Congesti ve heart failure 43792079 Active 2022 JANIS garcía [facility] 3 10:21:22 Nonexuda tive age-rela french macular degenera tion 649516274 Active 2022 JANIS garcía [facility] 3 10:22:00 History of peripher al arterial occlusiv e disease 066639524 Completed 202205/06/2024 Radha garcía [facility] 5 23:20:02 [place] l hyperten pauline 72706890 Active 2022 JANIS garcía [facility] 5 11:22:59 Hyperlip idemia 52112298 Active 2022 JANIS garcía, [facility] 5 11:23:22 Angina pectoris 210566989 Completed 202205/06/2024 Radha Garcia null, [facility] 5 23:20:02 Chronic systolic heart failure 850500471 Active 2022 JANIS JESUS null, [facility] 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 5 23:20:43 Nonexuda tive age-rela french macular degenera tion 252200826 Active 2022 Radha Garcia null, [facility] 5 23:20:43 Atrial fibrilla tion 41750476 Active 2023 JANIS JESUS null, [facility] 5 11:22:20 Low back pain 536740409 Active 2023 Radha Garcia null, [facility] 5 23:20:43 Leukopen ia 69893643 Active 2023 Radha Garcia null, [facility] 5 23:20:43 Chronic diastoli c heart failure 655195606 Active 2023 JANIS JESUS null, [facility] 5 11:22:34 Acute kidney injury 55496834 Completed 202305/06/2024 Radha garcía, [facility] 5 23:20:02 Thyroid stimulat ing hormone level above referenc e range 029493348 Active 2023 Radha Garcia null, [facility] 5 23:20:43 Infectio n of cassidyaceou s cyst [id number] Completed 202305/06/2024 Radha Garcia null, [facility] 5 23:20:54 Rheumato id arthriti s 95211519 Active 2024 Radha Garcia null, [facility] 5 23:20:43 Peripher al vascular disease [id number] Active 2024 Radha Garcia null, [facility] 5 23:20:43 Acute on chronic diastoli c heart failure 546657092 Active 2024 Radha Garcia null, [facility] 5 23:20:43 Chronic kidney disease due to type 2 diabetes mellitus 33293007709 8 Active 2024 Radha Garcia null, [facility] 5 12:18:38 Age related macular degenera tion 971410566 Active 2024 Radha Garcia null, [facility] 5 12:18:31 Chronic kidney disease stage 3B 725261288 Active 2024 JANIS JESUS null, [facility] 5 10:33:25 Maksim hematuri a 608993033 Active 2024 Radha Garcia null, [facility] 5 16:48:14 Prostati tis 1165751 [facility] 2024 [facility] 16:48:20 Dysuria 22951550 Active 2024 [facility] 5 14:02:50 Acute urinary tract infectio n 819982598 Active 2024 JANIS JESUS [facility] 5 14:43:11 Problem Notes None recorded. Procedures Surgical History Date Name Laterality Status Provider Name and Address Organization Details Recorded Time coronary artery bypass grafts x 2 completed [facility] 08/03/2022 10:25:38 tonsillectomy completed [facility] 08/03/2022 10:25:47 Mohs surgery completed [facility] 08/03/2022 10:26:13 replacement of aortic valve completed [facility] 08/03/2022 10:26:52 appendectomy completed [facility] 05/06/2024 23:21:08 cardiac pacemaker procedure completed [facility] 05/06/2024 23:21:25 Imaging Results None recorded. Procedure Notes None recorded. Medical Equipment None Reported. Allergies Allergen ID Allergen Name Allergen Category Reaction Reaction Severity Criticality Documentation Date Start Date Code Code System Note Provider Name and Address Organization Details Recorded Time 1012 Product containin g penicilli n (product) medicatio n Not available Not available Not available 05/11/2022 84029 8001 SNOMED [facility] 3 09:16:51 1013 allopurin ol medicatio n Not available Not available Not available 05/11/2022 519 RxNorm Radha Radha null, [facility] 3 09:17:18 1014 ciproflox acin medicatio n Not available Not available Not available 05/11/2022 2551 RxNorm Radha garcía, [facility] 3 09:17:30 58715 ciproflox acin hydrochlo ride medicatio n dizziness Not available Not available 09/03/2022 34775 RxNorm React ion: Dizzi ness; Comme nt: Recor ded 03/11 8:52A M by Candelaria Miles on, [employer], Offic e Visit ; Albaro mccollum; Danielle knapp ce: *; ; JANIS JESUS ricky, [facility] 4 10:04:36 03386 lisinopri l medicatio n cough Not available Not available 09/03/2022 20421 RxNorm JANIS ANN MARIE ricky, [facility] 4 10:13:16 22387 simvastat in medicatio n Not available Not available Not available 09/03/2022 94823 RxNorm JANIS JESUS ricky, [facility] 4 10:13:20 Medications Name Sig Start Date Stop Date Status Note LastModified by Organization Details LastModified Time furosemid e 40 mg tablet Take 1 tablet in the a.m. 2024 active Not Available Not Available Not Avai lable doxycycli ne hyclate 100 mg capsule Take 1 capsule twice a day by oral route for 10 days. 02/13 completed Not Available Not Available Not Available sulfasala zine 500 mg tablet TAKE 2 TABLETS BY MOUTH TWICE DAILY active Not Available Not Available No t Available azithromy michelle 250 mg tablet TAKE 2 TABLETS BY MOUTH TODAY, THEN TAKE 1 TABLET DAILY ON DAYS 2-5 08/29 completed Not Available Not Available Not Available amiodaron e 200 mg tablet TAKE 1 TABLET BY MOUTH TWICE DAILY active Not Available Not Available No t Available hydrocodo ne 5 mg-acetam inophen 325 mg tablet TAKE 1 TABLET BY MOUTH THREE TIMES DAILY NEEDED FOR MODERATE TO SEVERE PAIN 09/19 completed Not Available Not Available Not Available prednison e 20 mg tablet 01/25 completed Not Available Not Available Not Available isosorbid e mononitra te ER 30 mg tablet,ex tended release 24 hr Take 0.5 tablets every day by oral route. 08/01 completed Not Available Not Available Not Available fluoroura cil 5 % topical cream APPLY THIN LAYER WITH QTIP TO HEALED BIOPSY RIGHT LEG TWICE DAILY MON-MON (WEEKEND S OFF) FOR 2 WEEKS ONLY THEN STOP WILL CAUSE SKIN IRRITATI ON 11/19 completed Not Available Not Available Not Available prednison e 5 mg tablet TAKE 1 TABLET BY MOUTH EVERY DAY for 5 days 09/19 completed Not Available Not Available Not Available potassium chloride ER 10 mEq tablet,ex tended release 1 daily 11/14 completed Not Available Not Available Not Available clopidogr el 75 mg tablet TAKE 1 TABLET BY MOUTH EVERY DAY active Not Available Not Available No t Available doxycycli ne monohydra te 100 mg tablet 09/19 completed Not Available Not Available Not Available tramadol 50 mg tablet TAKE 1 TABLET BY MOUTH AT BEDTIME NEEDED FOR PAIN 07/05 completed Not Available Not Available Not Available triamcino lone acetonide 0.1 % topical cream APPLY TWICE DAILY TO THICKENE D/IRRITA FRENCH AREA OF LEFT ANKLE NEEDED. NO MORE THAN TWO WEEKS PER MONTH. NOT FOR USE ON FACE, GROIN OR SKIN FOLDS 11/19 completed Not Available Not Available Not Available spironola ctone 25 mg tablet TAKE 1 TABLET BY MOUTH EVERY DAY IN THE MORNING active Not Available Not Available No t Available levothyro xine 25 mcg tablet TAKE 1 TABLET BY MOUTH EVERY DAY 10/16 completed Not Available Not Available Not Available Glucosami ne-Chondr oitin Complex capsule daily 01/25 completed 0; Recorded 03/11/19 23 8:52AM by Janis Jesus LPN, Office Visit; Not Available Not Available Not Available betametha sone acetate and sodium phos 6 mg/mL suspensio n for injection Take 9 mg by injectio n route. 06/05 completed Not Available Not Available Not Available isosorbid e mononitra te ER 60 mg tablet,ex tended release 24 hr 01/25 completed Not Available Not Available Not Available potassium 99 mg tablet Take 1 tablet every day by oral route. active Not Available Not Available No t Available amiodaron e 400 mg tablet TAKE 1 TABLET BY MOUTH TWICE DAILY 12/14 completed Not Available Not Available Not Available levothyro xine 50 mcg tablet TAKE 1 TABLET BY MOUTH EVERY DAY active Not Available Not Available No t Available cephalexi n 500 mg capsule take 1 capsule BY MOUTH THREE TIMES DAILY for 7 days 11/19 completed Not Available Not Available Not Available pantopraz ole 40 mg tablet,de layed release TAKE 1 TABLET BY MOUTH EVERY DAY 09/19 completed Not Available Not Available Not Available Ocuvite tablet daily 01/25 completed 0; Recorded 03/11/19 23 8:52AM by Janis Jesus LPN, Office Visit; Not Available Not Available Not Available docusate sodium 100 mg capsule take 1 capsule BY MOUTH TWICE DAILY 09/19 completed Not Available Not Available Not Available sertralin e 25 mg tablet TAKE 1 TABLET BY MOUTH EVERY DAY 09/19 completed Not Available Not Available Not Available mupirocin 2 % topical ointment APPLY TO OPEN AREAS ON RIGHT LEG AND CHEST TWICE DAILY NEEDED UNTIL HEALED. COVER WITH BANDAGE 11/19 completed Not Available Not Available Not Available digoxin 125 mcg (0.125 mg) tablet TAKE 1 TABLET BY MOUTH EVERY DAY 09/19 completed Not Available Not Available Not Available furosemid e 20 mg tablet TAKE 1 TABLET BY MOUTH EVERY MORNING with 40mg tablet 05/03 completed Not Available Not Available Not Available metoprolo l succinate ER 25 mg tablet,ex tended release 24 hr take 1/2 tablet BY MOUTH EVERY DAY active Not Available Not Available No t Available levofloxa michelle 500 mg tablet TAKE 1 TABLET BY MOUTH DAILY 11/19 completed Not Available Not Available Not Available methylpre dnisolone 4 mg tablets in a dose pack Take as directed on package for 6 days 08/29 completed Not Available Not Available Not Available colchicin e 0.6 mg tablet TAKE 1 TABLET BY MOUTH EVERY DAY active Not Available Not Available No t Available cefdinir 300 mg capsule Take 1 capsule every 12 hours by oral route for 14 days. 10/17 completed Not Available Not Available Not Available doxycycli ne hyclate 100 mg tablet TAKE 1 TABLET BY MOUTH TWICE DAILY for 10 days active Not Available Not Available No t Available spironola ctone 50 mg tablet 01/25 completed Not Available Not Available Not Available neomycin- polymyxin -hydrocor t 3.5 mg-10,000 unit/mL-1 % ear drops,neto p instill FOUR drops into affected ear(s) THREE TIMES DAILY active Not Available Not Available No t Available Bactrim DS 800 mg-160 mg tablet Take 1 tablet every 12 hours by oral route for 14 days. 11/18 completed Not Available Not Available Not Available rosuvasta tin 20 mg tablet TAKE 1 TABLET BY MOUTH AT BEDTIME active Not Available Not Available No t Available nitrofura ntoin monohydra te/macroc rystals 100 mg capsule take 1 capsule BY MOUTH TWICE DAILY for 7 days 11/19 completed Not Available Not Available Not Available omega-3 acid ethyl esters 1 gram capsule take 1 capsule BY MOUTH TWICE DAILY active Not Available Not Available No t Available melatonin at bedtime 01/25 completed 0; Recorded 03/11/19 23 8:52AM by Janis Jesus LPN, Office Visit; Not Available Not Available Not Available digoxin daily 01/[address] Montes; 0; Recorded 03/11/19 23 8:52AM by Janis Jesus LPN, Office Visit; Not Available Not Available Not Available ferrous gluconate BID 01/25 completed Recorded 01/05/20 22 6:50AM by Naomi Long LPN, Office Visit; Refill Quantity : 60; Tablet; Not Available Not Available Not Available furosemid e two times daily 01/[address] Montes; Recorded 01/05/20 22 6:50AM by Naomi Long LPN, Office Visit; Refill Quantity : 0; Not Available Not Available Not Available Nitrostat 01/25 completed 0; Recorded 03/11/19 23 8:52AM by Janis Jesus LPN, Office Visit; Not Available Not Available Not Available Multi-Vit michel daily 01/25 completed 0; Recorded 03/11/19 8:52AM by Janis Jesus LPN, Office Visit; Not Available Not Available Not Available Mag-SR two times daily 01/25 completed 0; Recorded 03/11/19 8:52AM by Janis Jesus LPN, Office Visit; Not Available Not Available Not Available Potassium Chloride ER daily 01/25 completed 436; Recorded 03/11/19 8:52AM by Janis Jesus LPN (Authori enrique through Jerardo Chung MD), Office Visit; Refill Quantity : 90; Capsule; Not Available Not Available Not Available Vitamin-C daily 01/25 completed 0; Recorded 03/11/19 8:52AM by Janis Jesus LPN, Office Visit; Not Available Not Available Not Available Fish Oil 300 mg-1,000 mg capsule daily 01/25 completed 0; Recorded 03/11/19 8:52AM by Janis Jesus LPN, Office Visit; Not Available Not Available Not Available FeroSul 325 mg (65 mg iron) tablet TAKE 1 TABLET BY MOUTH EVERY DAY 09/19 completed Not Available Not Available Not Available febuxosta t 80 mg tablet TAKE 1 TABLET BY MOUTH EVERY DAY 09/19 completed Not Available Not Available Not Available febuxosta t 40 mg tablet TAKE 1 TABLET BY MOUTH EVERY DAY 10/01 completed Not Available Not Available Not Available Eliquis 5 mg tablet TAKE 1 TABLET BY MOUTH TWICE DAILY active Not Available Not Available No t Available Eliquis two times daily 01/[address] Montes; 0; Recorded 03/11/19 8:52AM by Janis Jesus LPN, Office Visit; Not Available Not Available Not Available Farxiga 10 mg tablet TAKE 1 TABLET BY MOUTH EVERY DAY active Not Available Not Available No t Available Farxiga daily 06/05 completed dx heart failure with reduced EF Not Available Not Available Not Available Entresto 49 mg-51 mg tablet TAKE 1 TABLET BY MOUTH TWICE DAILY active Not Available Not Available No t Available Entresto twice a day 01/25 completed 0; Recorded 03/11/19 8:52AM by Janis Jesus LPN, Office Visit; Not Available Not Available Not Available Vitals Date Recorded Body height Body mass index (BMI) Body weight Body temperature Heart rate Oxygen saturation Oxygen saturation in Arterial blood by Pulse oximetry Systolic And Diastolic Provider Name and Address Organization Details Last Updated DateTime 5 176.53 cm 31.3 kg/m2 26045.3 6 g 97.6 [degF] 95 /min 97 % 97 % 110/66 mm[Hg] JANIS JESUS [facility] 5 09:30:54 Social History Question Answer Notes LastModified by Organizat ion Details LastModified Time Tobacco Smoking Status Never Smoker JANIS garcía [facility] 08/03/2022 10:25:09 What Was The Date Of Your Most Recent Tobacco Screening? 08/07/2024 [email or web address] Information not available 08/07/2024 Sex: Unknown Functional Status Question Answer Note LastModified by Organization D etails LastModified Time Do you or have you ever used any other forms of tobacco or nicotine? No [email or web address] Information not available 04/26/2023 Do you or have you ever used any nicotine-free cigarettes, vape, or chewing tobacco? No [email or web address] Information not available 09/20/2023 Mental Status None recorded. Family History Relationship Description Onset Age of this Age Resolved Age Notes LastModified by Organization Details LastModified Time Father Cerebrovascu lar accident [email or web address] Not available 10:13:59 Mother Coronary atherosclero sis [email or web address] Not available 05/01 10:14:13 Medical History No medical history recorded. Immunizations Vaccine Type Date Status Note Provider Nam e and Address Organization Details Recorded Time Influenza, split virus, trivalent, preservative 8 completed JANIS garcía [facility] 04/26/2023 10:04:31 Influenza, split virus, trivalent, preservative 6 completed Not Available [facility] 09/03/2022 02:52:04 Influenza, split virus, trivalent, preservative 7 completed Not Available [facility] 09/03/2022 02:52:04 pneumococcal polysaccharide PPV23 7 completed Not Available [facility] 09/03/2022 02:52:04 Pneumococcal conjugate PCV 13 7 completed Not Available [facility] 09/03/2022 02:52:04 zoster live 7 completed Not Available [facility] 09/03/2022 02:52:05 Influenza, adjuvanted, trivalent, PF 5 completed JANIS JESUS null, [facility] 11/19/2024 11:55:16 Influenza, high-dose, quadrivalent, PF 1 completed JANIS JESUS null, [facility] 04/26/2023 10:04:31 Influenza, high-dose, quadrivalent, PF 2 completed JANIS JESUS null, [facility] 04/26/2023 10:04:31 COVID-19, mRNA, LNP-S, PF, 30 mcg/0.3 mL dose 1 completed JANIS JESUS null, [facility] 04/26/2023 10:04:31 COVID-19, mRNA, LNP-S, PF, 30 mcg/0.3 mL dose 1 completed JANIS JESUS null, [facility] 04/26/2023 10:04:31 COVID-19, mRNA, LNP-S, PF, 30 mcg/0.3 mL dose 2 completed JANIS JESUS null, [facility] 04/26/2023 10:04:31 COVID-19, mRNA, LNP-S, PF, 30 mcg/0.3 mL dose 1 completed JANIS JESUS null, [facility] 04/26/2023 10:04:31 COVID-19, mRNA, LNP-S, bivalent, PF, 30 mcg/0.3 mL dose 2 completed JANIS garcía, [facility] 04/26/2023 10:04:31 COVID-19, mRNA, LNP-S, PF, myriam-sucrose, 30 mcg/0.3 mL 3 completed JANIS garcía, [facility] 04/26/2023 10:04:31 Tdap 3 completed JANIS JESUS null, [facility] 04/26/2023 10:04:31 Influenza, high-dose, trivalent, PF 8 completed JANIS garcía, [facility] 04/26/2023 10:04:31 Hep A, adult 3 completed JANIS garcía, [facility] 04/26/2023 10:04:31 COVID-19, mRNA, LNP-S, PF, myriam-sucrose, 30 mcg/0.3 mL 4 completed JANIS garcía, [facility] 02/14/2024 11:20:35 Influenza, adjuvanted, trivalent, PF 4 completed Radha garcía, [facility] 11/30/2023 12:00:34 Past Encounters Encounter ID Performer Location Encounter Start Date Encounter Closed Date Diagnosis/Indication Diagnosis SNOMED-CT Code Diagnosis ICD10 Code Diagnosis IMO Codes Diagnosis Note [id number] Jerardo Chung MD [facility] ([facility] [address]) [address] [place] [phone] 10/21/2024 12:18:56 10/21/2024 13:52:57 Mass of urinary bladder 145893114 N32.89 360745 suspicious for posterior bladder mass.this patient is more likely than not going to want to follow conservati ve treatment. however, without cystoscopy it is very hard to guide him. he is not currently bleeding. he requires anticoagul ation for cardiac treatment. will continue that for now. 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 Congestive heart failure 99236016 I50.9 Maksim hematuria 02073491 5 R31.0 031039 resolved. his cystoscope is in the works but i will need to discuss the cindy krusei in his bladder. Health Concerns Section Related Observation LastModified by Organization Detai ls LastModified Time None Recorded Concern Status LastModified by Organization Details LastModified Time None Recorded Payers Encounter Date Sequence Insurance Name Policy Number Policy Davies Covered Member ID Davies Member ID Guarantor Name 11/19/2024 1 [employer] (MEDICARE REPLACEMENT/A DVANTAGE - PPO) Thong Salgado [id number] Thong Salgado Notes Date Note Type Note Provider Name and Address Organization Details Recorded Time 11/19/2024 text/html Care Management - Congestive Heart Failure (CHF)Reported by PatientHPIFor associated symptoms, patient reportsshortness of breath (patient states there is nothing specific that causes him to have the dyspnea)but reportsno chest painandno chest tightness(edema to the abdomen, cough).dry weight is up 2-3 lbs here and at home. he was given iv diuretics and responded well ROS as noted in the [facility] hospital f/u: Pt reports that he left AMA because they weren't giving him his medications and he wasn't improving. They had him on oxygen in the hospital, but when he left, was not prescribed any oxygen. Patient feels that he needs it at home, not all of the time. his urine flow is at baseline. no dysuria. hematuria resolved. Jerardo Chung MD [address] [place] [address], [phone], [facility] 11/19/2024 10:04:37
--- OUTSIDE RECORDS SUMMARY | 2024-11-20 16:26 | XMS_ITS | Encounter Summary ---
Author Organization [facility] Address [address] [place] [address] Care Team Providers Care Underwriting Analyst Name Role Phone Destin Chung MD Primary Care Provider [phone] Reason for Referral * Radiology Services (Routine) - Closed Specialty Diagnoses / Procedures Referred By Geoffrey t Referred To Contact Radiology Diagnoses S/P TAVR (transcatheter aortic valve replacement) Procedures ECHO LIMITED WO DOPPLER ECHO COMPLETE Sav Mckay MD [address] [place] [phone] Phone: tel: fax: [facility] [place] [address] [place] [address] Phone: tel: fax: Referral ID Status Reason Start Date Expiration Date Visits Re quested Visits Authorized [id number] Closed 11/27/2019 12/27/2020 1 1 Encounter Details Date Type Department Care Team (Late st Contact Info) Description 12/25/2019 Ancillary Orders [facility] [address] [place] [phone] Sav Mckay MD [address] [place] [phone] S/P TAVR (transcatheter aortic valve replacement) Social History Tobacco Use Types Packs/Day Years Used Date Smoking Tobacco: Never Smokeless Tobacco: Former Sex and Gender Information Value Date Recorded Sex Assigned at Not on file Legal Sex Male 9:36 AM 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 No / Unsure 12/25/2019 9:52 AM SENIOR PROGRAM MANAGER documented as of this encounter Plan of Treatment Not on file documented as of this encounter Results * ECHO LIMITED WO DOPPLER (12/25/2019 10:58 AM SENIOR PROGRAM MANAGER) EJECTION FRACTION 30 INTERFACE SYSTEM 12/25/2019 10:1 3 AM SENIOR PROGRAM MANAGER Narrative INTERFACE SYSTEM - 12/25/2019 11:43 AM SENIOR PROGRAM MANAGER [facility] Radiology Services - Echocardiology [address] [place] [id number] Limited Transthoracic Echocardiography Patient: Naomi Study ECHO LIMITED MINNA Benito ID: Gender: M : 1940 Age: 79 Room: Study 12/25/2019 Pt Outpatient Date: Status: Study 10:13:03 AM CSN #: [id number] Time: Ordering:Sav Mckay Interpreting:Garrett Rivas Burning Supervisor: Maureen Umana Indications and History: S/P TAVR. [...] Procedure Note Garrett Rivas MD - 12/25/2019 [facility] Radiology Services - Echocardiology [address] [place] [address] Limited Transthoracic Echocardiography Patient: Naomi Study ECHO LIMITED MINNA Benito ID: Gender: M : 1940 Age: 79 Room: Study 12/25/2019 Pt Outpatient Date: Status: Study 10:13:03 AM CSN #: [id number] Time: Ordering:Sav Mckay Interpreting:Garrett Rivas Burning Supervisor: Maureen Umana Indications and History: S/P TAVR. [...] US ORDERABLES Final Result Performing Organization Address City/[facility] Co de Phone Number INTERFACE SYSTEM Refer to clinic/hospital department documented in this encounter Visit Diagnoses Diagnosis S/P TAVR (transcatheter aortic valve replacement) S/P TAVR (transcatheter aortic valve replacement) documented in this encounter Care Teams Underwriting Analyst Relationship Specialty Start Date End Date Destin Chung MD [address] [phone] PCP - General Family Practice 01/26/16 documented as of this encounter
--- OUTSIDE RECORDS SUMMARY | 2024-11-20 16:26 | XMS_ITS | Continuity of Care Document ---
Author Organization SKYLA Colin Martin [facility] Polly LYousif, [facility] ([facility]) Address [address] [address] Care Team Providers Care Steward/Stewardess Banquet Name Role Phone JERARDO CHUNG Primary Care Provider Assessment No assessment recorded. Plan of Treatment Reminders Order Date Submit Date Provider Last Modified By Organization Details Last Modified Time Details Appointments OFFICE VISIT TJ 2024 09:45A M Jerardo Chung MD Not available Not available Not available Lab CMP, serum or plasma 2024 025 SHEILA [facility], [address] [facility], [address], [place], [address], 11/18/2024 10:13:51 Referral None recorded . Procedures None recorded [...] Available Colin Newman [facility] [address] [facility] [address], [place], [address], 10/28/2024 11:29:59 10/29/19 25 10/28/2024 URINA LYSIS WITH MICRO clarity CLOUDY abnormal Not Available Colin Kuhn [facility] [address] [facility] [address], [place], [address], 10/28/2024 11:29:59 10/29/19 25 10/28/2024 URINA LYSIS WITH MICRO glu 2+ abnormal Not Available Shaw Cr [facility] [address], [place], [address], 10/28/2024 11:29:59 10/29/19 25 10/28/2024 URINA LYSIS WITH MICRO bili NEGATI VE Not Available Shaw Cayla k [facility] [address] [facility] 1, [place], [address], 10/28/2024 11:29:59 10/29/19 25 10/28/2024 URINA LYSIS WITH MICRO ket NEGATI VE Not Available Shaw Cayla k [facility] [address] [facility] 1, [place], [address], 10/28/2024 11:29:59 10/29/19 25 10/28/2024 URINA LYSIS WITH MICRO S.g 1.015 Not Available Shaw Cre ek [facility] [address] [facility], [place], [address], 10/28/2024 11:29:59 10/29/19 25 10/28/2024 URINA LYSIS WITH MICRO pH 6.5 Not Available [facility] [address] [facility] 1, [place], [address], 10/28/2024 11:29:59 10/29/19 25 10/28/2024 URINA LYSIS WITH MICRO pro 1+ abnormal Not Available [facility] [address] [facility] 1, [place], [address], 10/28/2024 11:29:59 10/29/19 25 10/28/2024 URINA LYSIS WITH MICRO uro 0.2 E.U./D L Not Available Shaw Cayla k [facility] [address] [facility], [place], [address], 10/28/2024 11:29:59 10/29/19 25 10/28/2024 URINA LYSIS WITH MICRO nit NEGATI VE Not Available [facility] Cayla k [facility] [address] [facility], [place], [address], 10/28/2024 11:29:59 10/29/19 25 10/28/2024 URINA LYSIS WITH MICRO blo TRACE- INTACT abnormal Not Available Shaw Cayla k [facility] [address] [facility] 1, [place], [address], 10/28/2024 11:29:59 10/29/19 25 10/28/2024 URINA LYSIS WITH MICRO bryanna 3+ abnormal Not Available [facility] [address] [facility] 1, [place], [address], 10/28/2024 11:29:59 10/29/19 25 10/28/2024 URINA LYSIS WITH MICRO WBC 100 abnormal > Not Available [facility] [address] [facility] 1, [place], [address], 10/28/2024 11:29:59 10/29/19 25 10/28/2024 URINA LYSIS WITH MICRO RBC 15-20 abnormal Not Available [facility] [address] [facility] 1, [place], [address], 10/28/2024 11:29:59 10/29/19 25 10/28/2024 URINA LYSIS WITH MICRO epi cells NEGATI VE Not Available Shaw Cayla k [facility] [address] [facility] 1, [place], [address], 10/28/2024 11:29:59 10/29/19 25 10/28/2024 URINA LYSIS WITH MICRO bacteria TRACE OF AMORPH OUS abnormal Not Available Shaw Cayla k [facility] [address] [facility] 1, [place], [address], 10/28/2024 11:29:59 10/29/19 25 10/28/2024 URINA LYSIS WITH MICRO other NG Not Available [facility] Cre [facility] [address] [facility], [place], [address], 10/28/2024 11:29:59 10/29/19 25 10/30/2024 CULTU RE, URINE , ROUTI NE culture, urine, routine SEE NOTE CULTU RE, URINE , ROUTI NE Micro Numbe r: [id number] Test Statu s: Final Speci men [...] Cultu re Trans port Tube. Not Available [facility] [address] [place], [address], 10/30/2024 02:53:06 11/05/19 25 11/04/2024 CMP (MALE ) glucose 154.0 mg/dL 60.0-9 9.0 high Not Available [facility] [address] [facility] 1, [place], [address], 11/04/2024 11:00:08 11/05/19 25 11/04/2024 CMP (MALE ) BUN (blood urea nitrogen) 23.0 mg/dL 10.0-2 6.0 Not Available [facility] [address] [facility] 1, [place], [address], 11/04/2024 11:00:08 11/05/1911/04/2024 CMP (MALE ) creatinine (serum) 2.1 mg/dL 0.4-1. 5 high Not Available [facility] [address] [facility] 1, [place], [address], 11/04/2024 11:00:08 11/05/1911/04/2024 CMP (MALE ) BUN/creatini ne ratio 10.95 ratio Not Available [facility] [address] Mart[address] [facility] 1, [place], [address], 11/04/2024 11:00:08 11/05/1911/04/2024 CMP (MALE ) eGFR calculated 32.2 Not Available [facility] [place] [facility] [address] [facility] 1, [place], [address], 11/04/2024 11:00:08 11/05/1911/04/2024 CMP (MALE ) total protein 8.4 g/dL 6.0-8. 5 Not Available [facility] [address] [facility] 1, [place], [address], 11/04/2024 11:00:08 11/05/1911/04/2024 CMP (MALE ) total bilirubin 0.6 mg/dL 0.2-1. 3 Not Available [facility] [address] Albertoe [facility] 1, [place], [address], 11/04/2024 11:00:08 11/05/1911/04/2024 CMP (MALE ) albumin 5.0 g/dL 3.5-5. 5 Not Available [facility] [address] [facility] Carlos Albertoe [facility] 1, [place], [address], 11/04/2024 11:00:08 11/05/1911/04/2024 CMP (MALE ) globulin 3.4 calc Not Available [facility] [address] [facility] 1, [place], [address], 11/04/2024 11:00:08 11/05/1911/04/2024 CMP (MALE ) AST (SGOT) 34.0 U/L 0.0-46 .0 Not Available [facility] [address] [facility] 1, [place], [address], 11/04/2024 11:00:08 11/05/1911/04/2024 CMP (MALE ) altv (SGPT) 25.0 U/L 13.0-6 9.0 normal Not Available [facility] [place] [facility] [address] [facility] 1, [place], [address], 11/04/2024 11:00:08 11/05/1911/04/2024 CMP (MALE ) A/G ratio 1.5 ratio Not Available Shaw Mahnaz reek [facility] [address] [facility] 1, [place], [address], 11/04/2024 11:00:08 11/05/1911/04/2024 CMP (MALE ) ALP phos 51.0 U/L 30.0-1 40.0 normal Not Available [facility] [place] [facility] [address] [facility] 1, [place], [address], 11/04/2024 11:00:08 11/05/1911/04/2024 CMP (MALE ) calcium 9.8 mg/dL 8.4-10 .5 Not Available [facility] [place] [facility] [address] [facility] 1, [place], [address], 11/04/2024 11:00:08 11/05/1911/04/2024 CMP (MALE ) sodium 139.0 mmol/ L 136.0- 145.0 Not Available [facility] [place] [facility] [address] [facility] 1, [place], [address], 11/04/2024 11:00:08 11/05/1911/04/2024 CMP (MALE ) potassium 4.4 mmol/ L 3.5-5. 1 Not Available [facility] [place] [facility] [address] [facility] 1, [place], [address], 11/04/2024 11:00:08 11/05/1911/0411/04/2024 CMP (MALE ) chloride 101.0 mmol/ L 98.0-1 10.0 normal Not Available [facility] [place] [facility] [address] Mart[address] [facility] 1, [place], [address], 11/04/2024 11:00:08 11/05/19 25 11/04/2024 CMP (MALE ) C02 23.0 mmol/ L 22.0-3 1.0 Not Available [facility] [place] [facility] [address] [facility] 1, [place], [address], 11/04/2024 11:00:08 11/05/1911/04/2024 CMP (MALE ) anion gap 15.0 calc Not Available Colin levyk [facility] [address] [facility] [address] 1, [place], [address], 11/04/2024 11:00:08 11/05/1911/04/2024 CMP (MALE ) osmolality 293.4 calc Not Available [facility] [place] [facility] [address] [facility] 1, [place], [address], 11/04/2024 11:00:08 11/05/1911/04/2024 CBC WBC 4.6 x10 4.5-10 .5 Not Available [facility] [place] [facility] [address] [facility] 1, [place], [address], 11/04/2024 11:14:48 11/05/1911/04/2024 CBC RBC 3.97 x10 4.30-5 .90 low Not Available [facility] [place] [facility] [address] [facility] 1, [place], [address], 11/04/2024 11:14:48 11/05/1911/04/2024 CBC HGB 12.7 g/dL 13.5-1 8.0 low Not Available [facility] [place] [address] [facility] 1, [place], [address], 11/04/2024 11:14:48 11/05/19 25 11/04/2024 CBC HCT 39.9 % 35.0-6 0.0 Not Available [facility] [place] [facility] [address] [facility] 1, [place], [address], 11/04/2024 11:14:48 11/05/1911/04/2024 CBC MCV 100.6 fL 80.0-9 9.9 high Not Available [facility] [place] [facility] [address] [facility] 1, [place], [address], 11/04/2024 11:14:48 11/05/1911/04/2024 CBC MCH 32.0 pg 27.0-3 2.0 Not Available [facility] [place] [facility] [address] [facility] 1, [place], [address], 11/04/2024 11:14:48 11/05/1911/04/2024 CBC MCHC 31.9 g/dL 32.0-3 6.0 low Not Available [facility] [place] [facility] [address] [facility] 1, [place], [address], 11/04/2024 11:14:48 11/05/1911/04/2024 CBC RDW 13.1 % 11.5-1 4.5 Not Available [facility] [place] [facility] [address] [facility] 1, [place], [address], 11/04/2024 11:14:48 11/05/1911/04/2024 CBC plt 277.0 x10 150.0- 451.0 Not Available [facility] [place] [facility] [address] [facility] 1, [place], [address], 11/04/2024 11:14:48 11/05/19 25 11/04/2024 CBC lymphocytes % 29.4 % 20.0-5 0.0 Not Available [facility] [place] [facility] [address] [facility] 1, [place], [address], 11/04/2024 11:14:48 11/05/19 25 11/04/2024 CBC granulcytes % 56.8 % 30.0-7 0.0 Not Available [facility] [place] [facility] [address] [facility] 1, [place], [address], 11/04/2024 11:14:48 11/05/19 25 11/04/2024 CBC monocytes % 10.0 % 2.0-16 .0 Not Available [facility] [place] [address] [facility], [place], [address], 11/04/2024 11:14:48 11/05/19 25 11/04/2024 CBC granulcytes# 2.6 x10 Not Nola ilable [facility] [place] [facility] [address] [facility], [place], [address], 11/04/2024 11:14:48 11/05/19 25 11/04/2024 CBC lymphocytes # 1.3 x10 Not Available [facility] [address] [facility] [address], [place], [address], 11/04/2024 11:14:48 11/05/19 25 11/04/2024 CBC monocytes # 0.5 x10 Not Avai lable [facility] [place] [address] [facility], [place], [address], 11/04/2024 11:14:48 11/05/19 25 11/04/2024 HBA1C hemaglobin A1C 6.8 4.2-6. 5 high Not Available [facility] [place] [address] [facility] [address], [place], [address], 11/04/2024 11:14:53 11/05/19 25 11/04/2024 TSH TSH 12.78 uIU/m L 0.49-3 .82 high Not Available [facility] [place] [facility] [address], [place], [address], 11/04/2024 12:44:48 11/05/1911/05/2024 URIC ACID uric acid 6.1 mg/dL 4.0-8. 0 normal Thera peuti c targe t for gout patie nts: <6.0 mg/dL Not Available [address] [address] [place], [address], 11/05/2024 13:58:13 11/05/19 25 11/05/2024 ALBUM IN, RANDO M URINE W/CRE ATINI NE creatinine, random urine 48 mg/dL 20-320 normal Not Available [address] [address] [place], [address], 11/05/2024 13:58:14 11/05/19 25 11/05/2024 ALBUM IN, RANDO M URINE W/CRE ATINI NE albumin, urine 16.4 mg/dL see note: normal Refer ence Range : Refer ence Range Not estab lishe d Not Available [address] [address] [place], [address], 11/05/2024 13:58:14 11/05/19 25 11/05/2024 ALBUM IN, [...] a diagn ostic categ ory. Not Available [address] [address] [place], [address], 11/05/2024 13:58:14 11/05/19 25 11/05/2024 C-JESSA CTIVE PROTE IN C-reactive protein <3.0 mg/L <8.0 normal Not Available [facility] [address] [address] [place], [address], 11/05/2024 13:58:14 11/05/19 25 11/05/2024 T4, FREE T4, free 0.8 NG/dL 0.8-1. 8 normal Not Available [facility] - [address], [address], 11/05/2024 13:58:14 11/05/1911/05/2024 B TYPE NATRI URETI C PEPTI DE (BNP) B type natriuretic peptide (BNP) 179 pg/mL <100 high BNP level s incre ase with age in the gener al popul ation with the highe st value s seen in indiv idual s great er than 75 years of age. Refer ence: J. Am. Simona. Cardi ol. 2002; 40:97 6-982 . Not Available [facility] [address], [address], 11/05/2024 13:58:15 11/06/19 25 11/05/2024 ESR (eryt hrocy te sedim entat ion rate) , blood SedRate 25 Not Available [facility] ([facility]) [address] [place], [address], 11/04/2024 10:05:43 11/19/1911/18/2024 CMP (MALE ) glucose 177.0 mg/dL 60.0-9 9.0 high Not Available [facility] [address], [address], 11/18/2024 10:13:51 11/19/19 25 11/18/2024 CMP (MALE ) BUN (blood urea nitrogen) 40.0 mg/dL 10.0-2 6.0 high Not Available [facility] [place] [address] [facility] 1, [place], [address], 11/18/2024 10:13:51 11/19/19 25 11/18/2024 CMP (MALE ) creatinine (serum) 1.9 mg/dL 0.4-1. 5 high Not Available [facility] [address] Alberto[address] [facility] 1, [place], [address], 11/18/2024 10:13:51 11/19/1911/18/2024 CMP (MALE ) BUN/creatini ne ratio 21.05 ratio Not Available [facility] [address] [facility] 1, [place], [address], 11/18/2024 10:13:51 11/19/1911/18/2024 CMP (MALE ) eGFR calculated 36.2 Not Available [facility] [address] [facility] 1, [place], [address], 11/18/2024 10:13:51 11/19/19 25 11/18/2024 CMP (MALE ) total protein 7.5 g/dL 6.0-8. 5 Not Available [facility] [address] [facility] 1, [place], [address], 11/18/2024 10:13:51 11/19/1911/18/2024 CMP (MALE ) total bilirubin 0.9 mg/dL 0.2-1. 3 Not Available [facility] [address] [facility] 1, [place], [address], 11/18/2024 10:13:51 11/19/19 25 11/18/2024 CMP (MALE ) albumin 4.1 g/dL 3.5-5. 5 Not Available [facility] [address] [facility] 1, [place], [address], 11/18/2024 10:13:51 11/19/19 25 11/18/2024 CMP (MALE ) globulin 3.4 calc Not Available Colin Kuhn [facility] [address] [facility] 1, [place], [address], 11/18/2024 10:13:51 11/19/19 25 11/18/2024 CMP (MALE ) AST (SGOT) 63.0 U/L 0.0-46 .0 high Not Available [facility] [place] [address] [facility] 1, [place], [address], 11/18/2024 10:13:51 11/19/19 25 11/18/2024 CMP (MALE ) altv (SGPT) 48.0 U/L 13.0-6 9.0 normal Not Available [facility] [place] [facility] [address] [facility] 1, [place], [address], 11/18/2024 10:13:51 11/19/19 25 11/18/2024 CMP (MALE ) A/G ratio 1.2 ratio Not Available Colin Joya reek [facility] [address] [facility] 1, [place], [address], 11/18/2024 10:13:51 11/19/19 25 11/18/2024 CMP (MALE ) ALP phos 45.0 U/L 30.0-1 40.0 normal Not Available [facility] [place] [facility] [address] [facility] 1, [place], [address], 11/18/2024 10:13:51 11/19/1911/18/2024 CMP (MALE ) calcium 9.0 mg/dL 8.4-10 .5 Not Available [facility] [place] [facility] [address] [facility] 1, [place], [address], 11/18/2024 10:13:51 11/19/1911/18/2024 CMP (MALE ) sodium 134.0 mmol/ L 136.0- 145.0 low Not Available [facility] [place] [address], [place], [address], 11/18/2024 10:13:51 11/19/1911/18/2024 CMP (MALE ) potassium 3.3 mmol/ L 3.5-5. 1 low Not Available [facility] [place] [facility] [address], [place], [address], 11/18/2024 10:13:51 11/19/1911/18/2024 CMP (MALE ) chloride 98.0 mmol/ L 98.0-1 10.0 normal Not Available [facility] [place] [facility] [address], [place], [address], 11/18/2024 10:13:51 11/19/1911/18/2024 CMP (MALE ) C02 26.0 mmol/ L 22.0-3 1.0 Not Available [facility] [place] [address], [place], [address], 11/18/2024 10:13:51 11/19/1911/18/2024 CMP (MALE ) anion gap 10.0 calc Not Available Shaw Mahnaz levyk [facility] [address], [place], [address], 11/18/2024 10:13:51 11/19/1911/18/2024 CMP (MALE ) osmolality 290.2 calc Not Available [facility] [address], [place], [address], 11/18/2024 10:13:51 Result Notes None recorded. Problems Name Problem SNOMED Code Status Onset Date Resolution Date Notes Provider Name and Address Organization Details Recorded Time Transeso phageal echocard iography Completed 202010/22/2020 echocard iogram 04/2008 - Status is Resolved ; diastoli c CHF, EF 50%; Resolved Date: 10/23/19; 10/23/19 9:23AM by Nicole Chung PA-C, Annotati [...] ; acuity set as *; Not Available [facility] 03:10:27 Benign hyperten pauline [id number] Completed 202010/22/2020 HTN - Status is Inactive ; 10/23/19 9:23AM by Nicole Chung PA-C, Annotati on/Adden dum; Promoted ; acuity set as *; Not Available [facility] 3 03:10:27 General examinat ion of patient Completed 202111/18/2021 GENERAL MEDICAL EXAM - Status is Inactive ; Recorded 11/19/19 12:44PM by Janis Jesus LPN, Annotati on/Adden dum; Promoted ; acuity set as *; Not Available [facility] 03:10:27 Body mass index 25-29 - overweig 576899048 Active 2022 BODY MASS INDEX (BMI) 28.0-28. 9, ADULT; Recorded 03/11/19 23 8:52AM by Janis Jesus LPN, Office Visit; Promoted ; acuity set as *; BMI 28.0-28. 9,ADULT - Status is Inactive ; Recorded 01/05/20 6:50AM by Naomi Long LPN, Annotati on/Adden dum; Promoted ; acuity set as *; ; Start Date : 01/05/20 Radha garcía, [facility] 5 23:20:42 Aortic stenosis , non-rheu matic 056616134 Active 2022 SEVERE AORTIC STENOSIS ; Recorded [...] ; Start Date : 11/20/[address] [facility] 5 23:20:43 Anemia 494127844 Active 2022 ANEMIA; Recorded 03/11/19 8:52AM by Janis Jesus LPN, Office Visit; Promoted ; acuity set as *; Radha garcía [facility] 5 23:20:43 Carotid artery stenosis 16484498 Active [address] [facility] 5 23:20:43 Congesti ve heart failure 09933270 Active [address] [facility] 3 10:21:22 Nonexuda tive age-rela french macular degenera tion 219165892 Active [address] [facility] 3 10:22:00 History of peripher al arterial occlusiv e disease 111909467 Completed 202205/06/[address] [facility] 5 23:20:02 Essentia l hyperten pauline 63068969 Active [address] [facility] 5 11:22:59 Hyperlip idemia 20691571 Active 2022 JANIS JESUS null, [facility] 5 11:23:22 Angina pectoris 258058186 Completed 202205/06/2024 Radha Garcia null, [facility] 5 23:20:02 Chronic systolic heart failure 377485141 Active 2022 JANIS JESUS null, [facility] 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 5 23:20:43 Nonexuda tive age-rela french macular degenera tion 041121735 Active 2022 Radha Garcia null, [facility] 5 23:20:43 Atrial fibrilla tion 97649917 Active 2023 JANIS JESUS null, [facility] 5 11:22:20 Low back pain 955421294 Active 2023 Radha Garcia null, [facility] 5 23:20:43 Leukopen ia 22549507 Active 2023 Radha Garcia null, [facility] 5 23:20:43 Chronic diastoli c heart failure 922824084 Active 2023 JANIS JESUS null, [facility] 5 11:22:34 Acute kidney injury 90072570 Completed 202305/06/2024 Radhakori KelleyRadha null, [facility] 5 23:20:02 Thyroid stimulat ing hormone level above referenc e range 518162994 Active 2023 Radhakori KelleyRadha null, [facility] 5 23:20:43 Infectio n of sebaceou s cyst 911201035 Completed 202305/06/2024 Radha Garcia null, [facility] 5 23:20:54 Rheumato id arthriti s 25475455 Active 2024 Radha Garcia null, [facility] 5 23:20:43 Peripher al vascular disease 019979467 Active 2024 Radha garcía, [facility] 5 23:20:43 Acute on chronic diastoli c heart failure 756325974 Active 2024 Radha Garcia [facility], [facility] 5 23:20:43 Chronic kidney disease due to type 2 diabetes mellitus 30492816207 8 Active 2024 Radha Garcia [facility] 5 12:18:38 Age related macular degenera tion 459414053 Active 2024 Radha Garcia null, [facility] 5 12:18:31 Chronic kidney disease stage 3B 933613840 Active 2024 JANIS JESUS [facility], [facility] 5 10:33:25 Maksim hematuri a 809283175 Active 2024 Radha Garcia [facility], [facility] 5 16:48:14 Prostati tis 8356172 Active 2024 [facility] 16:48:20 Dysuria 94088192 Active 2024 [facility] 5 14:02:50 Acute urinary tract infectio n 227823291 Active 2024 JANIS JESUS [facility] 5 14:43:11 Problem Notes None recorded. Procedures Surgical History Date Name Laterality Status Provider Name and Address Organization Details Recorded Time coronary artery bypass grafts x 2 completed [facility] 08/03/2022 10:25:38 tonsillectomy completed [facility], BradL[facility] 08/03/2022 10:25:47 Mohs surgery completed [facility], LC[facility]lleL[facility] 08/03/2022 10:26:13 replacement of aortic valve completed [facility], LC[facility]lle[facility] 08/03/2022 10:26:[address] [facility] 05/06/2024 23:21:08 cardiac pacemaker procedure completed [facility] 05/06/2024 23:21:25 Imaging Results None recorded. Procedure Notes None recorded. Medical Equipment None Reported. Allergies Allergen ID Allergen Name Allergen Category Reaction Reaction Severity Criticality Documentation Date Start Date Code Code System Note Provider Name and Address Organization Details Recorded Time 1012 Product containin g penicilli n (product) medicatio n Not available Not available Not available 05/11/2022 88791 8001 [facility]ED [facility] 09:16:51 1013 allopurin ol medicatio n Not available Not available Not available 05/11/2022 519 RxNorm Radha garcía, [facility] 3 09:17:18 1014 ciproflox acin medicatio n Not available Not available Not available 05/11/2022 2551 RxNorm Radha garcía, [facility] 3 09:17:30 82564 ciproflox acin hydrochlo ride medicatio n dizziness Not available Not available 09/03/2022 01790 RxNorm React ion: Dizzi ness; Comme nt: Recor ded 03/11 8:52A M by Candelaria Miles on, BASE MANAGER, Offic e Visit ; Promo french; Danielle knapp ce: *; ; [facility] 4 10:04:36 23515 lisinopri l medicatio n cough Not available Not available 09/03/2022 49673 RxNorm JANIS garcía, [facility] 4 10:13:16 85014 simvastat in medicatio n Not available Not available Not available 09/03/2022 86063 RxNorm JANIS garcía, [facility] 4 10:13:20 Medications Name Sig Start [...] Not Available Not Available Not Available Vitals None Recorded Social History Question Answer Notes LastModified by Organizat ion Details LastModified Time Tobacco Smoking Status Never Smoker JANIS garcía, [facility] 08/03/2022 10:25:09 What Was The Date Of Your Most Recent Tobacco Screening? 08/07/2024 [email or web address] Information not available 08/07/2024 Sex: Unknown Functional Status Question Answer Note LastModified by Organization D etails LastModified Time Do you or have you ever used any other forms of tobacco or nicotine? No Information not available 04/26/2023 Do you or have you ever used any nicotine-free cigarettes, vape, or chewing tobacco? No [email or web address] Information not available 09/20/2023 Mental Status None recorded. Family History Relationship Description Onset Age of this Age Resolved Age Notes LastModified by Organization Details LastModified Time Father Cerebrovascu lar accident [email or web address] Not available 10:13:59 Mother Coronary atherosclero sis [email or web address] Not available 05/01 10:14:13 Medical History No medical history recorded. Immunizations Vaccine Type Date Status Note Provider Nam e and Address Organization Details Recorded Time Influenza, split virus, trivalent, preservative 8 completed JANIS garcía, [facility] 04/26/2023 10:04:31 Influenza, split virus, trivalent, preservative 6 completed Not Available [facility] 09/03/[facility]22 02:52:04 Influenza, split virus, trivalent, preservative 7 completed Not Available [facility] 09/03/2022 02:52:04 pneumococcal polysaccharide PPV23 7 completed Not Available [facility] 09/03/2022 02:52:04 Pneumococcal conjugate PCV 13 7 completed Not Available [facility] 09/03/2022 02:52:04 zoster live 7 completed Not Available [facility] 09/03/2022 02:52:05 Influenza, adjuvanted, trivalent, PF 5 completed JANIS JESUS null, [facility] 11/19/2024 11:55:16 Influenza, high-dose, quadrivalent, PF 1 completed JANIS JESUS null, [facility] 04/26/2023 10:04:31 Influenza, high-dose, quadrivalent, PF 2 completed JANIS JESUS null, [facility] 04/26/2023 10:04:31 COVID-19, mRNA, LNP-S, PF, 30 mcg/0.3 mL dose 1 completed JANIS JESUS null, [facility] 04/26/2023 10:04:31 COVID-19, mRNA, LNP-S, PF, 30 mcg/0.3 mL dose 1 completed JANIS JESUS null, [facility] 04/26/2023 10:04:31 COVID-19, mRNA, LNP-S, PF, 30 mcg/0.3 mL dose 2 completed JANIS JESUS null, [facility] 04/26/2023 10:04:31 COVID-19, mRNA, LNP-S, PF, 30 mcg/0.3 mL dose 1 completed JANIS JESUS null, [facility] 04/26/2023 10:04:31 COVID-19, mRNA, LNP-S, bivalent, PF, 30 mcg/0.3 mL dose 2 completed [facility] 04/26/2023 10:04:31 COVID-19, mRNA, LNP-S, PF, myriam-sucrose, 30 mcg/0.3 mL 3 completed [facility] 04/26/2023 10:04:31 Tdap 3 completed JANIS JESUS null, [facility] 04/26/2023 10:04:31 Influenza, high-dose, trivalent, PF 8 completed JANIS JESUS null, [facility] 04/26/2023 10:04:31 Hep A, adult 3 completed JANIS JESUS null, [facility] 04/26/2023 10:04:31 COVID-19, mRNA, LNP-S, PF, myriam-sucrose, 30 mcg/0.3 mL 4 completed JANIS JESUS null, [facility] 02/14/2024 11:20:35 Influenza, adjuvanted, trivalent, PF 4 completed Radha Garcia null, [facility] 11/30/2023 12:00:34 Past Encounters Encounter ID Performer Location Encounter Start Date Encounter Closed Date Diagnosis/Indication Diagnosis SNOMED-CT Code Diagnosis ICD10 Code Diagnosis IMO Codes Diagnosis Note [id number] Jerardo Chung MD [facility] ([facility]) [address] [place] [address] 10/21/2024 12:18:56 10/21/2024 13:52:57 Mass of urinary bladder 202038806 N32.89 827909 suspicious for posterior bladder mass.this patient is more likely than not going to want to follow conservati ve treatment. however, without cystoscopy it is very hard to guide him. he is not currently bleeding. he requires anticoagul ation for cardiac treatment. will continue that for now. 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 3434694547 08 E11.22 [id number] Jerardo Chung MD [facility] ([facility]) [address] [place] [address] 11/18/2024 09:24:42 11/19/2024 09:33:24 Congestive heart failure 95640110 I50.9 Health Concerns Section Related Observation LastModified by Organization Detai ls LastModified Time None Recorded Concern Status LastModified by Organization Details LastModified Time None Recorded Payers Encounter Date Sequence Insurance Name Policy Number Policy Davies Covered Member ID Davies Member ID Guarantor Name 11/18/2024 1 [employer] (MEDICARE REPLACEMENT/A DVANTAGE - PPO) Thong Salgado Jr [id number] Thong Salgado
--- OUTSIDE RECORDS SUMMARY | 2024-11-20 16:26 | XMS_ITS | Patient Health Record ---
Author Organization [facility] Address [address] [place] [address] Care Team Providers Care Township Clerk Name Role Phone Lyle Headley Primary Care Provider Unavailabl e Migration, Provider Unavailable Unavailable Reason For Referral No Information Encounters Encounter Location Date Provider Diagnosis Migrated_Facility 0 0 12/02/2023 Provider Migration Migrated_Facility 0 0 12/03/2023 Provider Migration Plan Of Treatment No Information
--- OUTSIDE RECORDS SUMMARY | 2024-11-20 16:26 | XMS_ITS | Encounter Summary ---
Author Organization [facility] Address [address] [place] [address] Care Team Providers Care Mill Helper Name Role Phone Destin Chung MD Primary Care Provider [phone] Encounter Details Date Type Department Care Team (Late st Contact Info) Description 10/08/2019 Ancillary Orders [facility] External Department [address] [place] [phone] [facility], External Provider [address] [place] [address] Other chest pain Social History Tobacco Use Types Packs/Day Years Used Date Smoking Tobacco: Never Assessed Sex and Gender Information Value Date Recorded Sex Assigned at Not on file 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 us External Provider [facility] ORDERABLES Final Resu lt documented in this encounter Visit Diagnoses Diagnosis Other chest pain Other chest pain documented in this encounter Care Teams Mill Helper Relationship Specialty Start Date End Date Destin Chung MD [address] [facility] [address] [place] [address] PCP - General Family Practice 01/26/16 documented as of this encounter
--- OUTSIDE RECORDS SUMMARY | 2024-11-20 16:26 | XMS_ITS | Encounter Summary ---
Author Organization [facility] Address [address] [place] [address] Care Team Providers Care Load Planner Name Role Phone Destin Chung MD Primary Care Provider [phone] Encounter Details Date Type Department Care Team (Late st Contact Info) Description 10/08/2019 Ancillary Orders [facility] External Department [address] [place] [phone] [facility], External Provider [address] [place] [address] Other chest pain Social History Tobacco Use Types Packs/Day Years Used Date Smoking Tobacco: Never Assessed Sex and Gender Information Value Date Recorded Sex Assigned at Not on file 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 External Provider [facility] ORDERABLES Fin al Result documented in this encounter Visit Diagnoses Diagnosis Other chest pain Other chest pain documented in this encounter Care Teams Load Planner Relationship Specialty Start Date End Date Destin Chung MD [address] [facility] 1 [place] [address] PCP - General Family Practice 01/26/16 documented as of this encounter
--- OUTSIDE RECORDS SUMMARY | 2024-11-20 16:26 | XMS_ITS | Clinical Summary ---
[facility] Organization [facility] Address [address] [facility] [address] 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 10/09/2019 Active Magnesium Oxide 84.5 mg mag (140 mg) Capsule Take 140 mg by mouth 2 times daily. 10/09/2019 Active vit B cmplx 3-FA-Vit C-Biotin (RENAVITE-RX RX) 1-60-300 mg-mg-mcg Tablet Take 1 Tablet by mouth daily. 10/09/2019 Active multivitamins-mi nerals-lutein (CENTRUM SILVER) Tablet Take 1 Tablet by mouth daily. 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 6-7fr [id number] - [id number] Implanted:Qty : 1 on 11/26/2019 Closure Device Left: Groin ACCESS CLOSURE 10/06/2021 [id number] / / [id number] Valve Sapien3 Transcath 29mm [id number] - [id number] Implanted:Qty : 1 on 11/26/2019 by Yan Salmeron MD Tissue N/A: Aorta [employer] [id number] / [id number] / Explanted Type Area Preparation Room Manager Device Identifier Shelf Expiration Date Model / Serial / Lot Cath Pace Bipolar 5fr [id number] - [id number] Explanted:Qty : 1 on 11/26/2019 Catheter Left: Chest CR BARD- MED DIV 07/06/2021 [id number] / / [id number] Insurance MEDICARE HMO Care Teams Urban Planner Relationship Specialty Start Date End Date Destin Chung MD [address] [address] PCP - General Family Practice 01/26/16
--- OUTSIDE RECORDS SUMMARY | 2024-11-20 16:26 | XMS_ITS | Encounter Summary ---
Author Organization [facility] Address [address] [place] [address] Care Team Providers Care Podiatric Assistant Name Role Phone Destin Chung MD Primary Care Provider [phone] Encounter Details Date Type Department Care Team (Late st Contact Info) Description 10/08/2019 Ancillary Orders 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 us External Provider [facility] ORDERABLES Final Resu lt documented in this encounter Visit Diagnoses Diagnosis Other chest pain Other chest pain documented in this encounter Care Teams Podiatric Assistant Relationship Specialty Start Date End Date Destin Chung MD [address] [facility] 1 [place] [address] PCP - General Family Practice 01/26/16 documented as of this encounter
--- OUTSIDE RECORDS SUMMARY | 2024-11-20 16:26 | XMS_ITS | Patient Health Record ---
Author Organization [email or web address] Address [address] [place] [address] Care Team Providers Care Manager Fleet Name Role Phone Destin Chung MD Primary Care Provider STEFAN Laughlin Unavailable [phone] SHELLY RIVERS Unavailable [phone] Allergies Allergen (clinical drug ingredient) Drug/Non Drug Allergy documented on EMR Reaction Allergy Type Onset Date Status ciprofloxacin Ciprofloxacin Unknown Drug Allergy Active Penicillin Unknown Drug Allergy Active Results Component Value Reference Range Notes UBASE - Urinary Tract Infect ion (HTRx) Reviewed date:11/08/2024 11:11:49 AM Interpretation: Performing Lab:, [facility] at [address], Phone - [phone], Director - [phone] Notes/Report: CTX-M1 (15), M2 (2), M9 (9), M8/25 Groups 27.677 23.000 - 32.658 ppm CTX-M1 (15), M2 (2), M9 (9), M8/25 Groups Detected 23.000 - 32.658 ppm dfr (A1, A5), sul (1,2) 26.812 23.000 - 27.000 p pm dfr (A1, A5), sul (1,2) Detected 23.000 - 27.000 p pm Acinetobacter baumannii 0 19.961 - 24.689 p pm Acinetobacter baumannii Not Detected 19.961 - 24.689 p pm Citrobacter freundii 0 23.000 - 32.015 ppm Citrobacter freundii Not Detected 23.000 - 32.015 ppm Enterobacter aerogenes, cloacae 0 23.000 - 32.290 ppm Enterobacter aerogenes, cloacae Not Detected 23.000 - 32.290 ppm Enterococcus faecalis, faecium 25.888 26.000 - 3 3.043 ppm Enterococcus faecalis, faecium Detected 26.000 - 3 3.043 ppm Escherichia coli 24.739 23.000 - 28.500 ppm Escherichia coli Detected 23.000 - 28.500 ppm Klebsiella pneumoniae, oxytoca 0 23.000 - 3 1.865 ppm Klebsiella pneumoniae, oxytoca Not Detected 23.000 - 3 1.865 ppm Morganella morganii 27.707 19.961 - 24.689 ppm Morganella morganii Detected 19.961 - 24.689 ppm Proteus mirabilis, vulgaris 0 23.000 - 28.5 00 ppm Proteus mirabilis, vulgaris Not Detected 23.000 - 28.5 00 ppm Pseudomonas aeruginosa 0 23.000 - 31.801 pp m Pseudomonas aeruginosa Not Detected 23.000 - 31.801 pp m Staphylococcus aureus 0 26.000 - 31.595 ppm Staphylococcus aureus Not Detected 26.000 - 31.595 ppm Streptococcus agalactiae (Group B Strep) 0 26.000 - 32.435 ppm Streptococcus agalactiae (Group B Strep) Not Detected 26.000 - 32.435 ppm Keiry albicans, parapsilosis, tropicalis 0 23.000 - 30.347 ppm Keiry albicans, parapsilosis, tropicalis Not Detecte d 23.000 - 30.347 ppm Keiry glabrata (Nakaseomyces glabratus) 24.401 23.000 - 31.618 ppm Keiry glabrata (Nakaseomyces glabratus) Detected 23.000 - 31.618 ppm Keiry krusei (Pichia kudriavzevii) 0 23.0 00 - 30.873 ppm Keiry krusei (Pichia kudriavzevii) Not Detected 23.0 00 - 30.873 ppm Serratia marcescens 0 23.000 - 31.581 ppm Serratia marcescens Not Detected 23.000 - 31.581 ppm Streptococcus pyogenes (Group A strep) 0 19 .961 - 24.689 ppm Streptococcus pyogenes (Group A strep) Not Detected 19 .961 - 24.689 ppm Staphylococcus saprophyticus 0 19.961 - 24. 689 ppm Staphylococcus saprophyticus Not Detected 19.961 - 24. 689 ppm Staphylococcus epidermidis, haemolyticus, lugdunensis 0 19.961 - 24.689 ppm Staphylococcus epidermidis, haemolyticus, lugdunensis Not Detected 19.961 - 24.689 ppm Urinalysis, Routine Reviewed date:11/07/2024 09:51:47 AM Interpretation: Performing Lab: Notes/Report: Urine-Color yellow Appearance cloudy Glucose 3+ Bilirubin - Ketones - Specific [place] 1.015 Occult Blood trace pH 6.0 Urine Protein 1+ Urobilinogen,Semi-Qn - Nitrite, Urine -3+ Urinalysis, Routine Reviewed date:11/14/2024 02:47:01 PM Interpretation: Performing Lab: Notes/Report: Urine-Color yellow Appearance cloudy Glucose 3+ Bilirubin - Ketones - Specific [place] 1.015 Occult Blood 1+ pH 6.0 Urine Protein 1+ Urobilinogen,Semi-Qn - Nitrite, Urine - WBC Esterase 2+ Reason For Referral No Information Medications Medication SIG (Take, Route, Frequency, Duration) Notes Start Date End Date Status Doxycycline Hyclate 100 MG 1 capsule Ora lly twice a day; Duration: 10 days 11/14/2024 11/24/2024 Active Colchicine 0.6 MG 1 tablet Orally Active Spironolactone 100 MG 1 tablet Orally On ce a day Active Rosuvastatin Calcium 20 MG 1 tablet Oral ly Once a day Active sulfaSALAzine 500 MG 1 tablet Orally Onc e a day Active Furosemide 40 MG 1 tablet Orally Once a day Active Clopidogrel & Aspirin Active Febuxostat Active Metoprolol Succinate ER 25 MG 1 tablet Orally Once a day Active Levothyroxine Sodium 50 MCG 1 tablet in the morning on an empty stomach Orally Once a day Active Amiodarone HCl 200 MG 1 tablet Orally On ce a day Active Entresto 49-51 MG 1 tablet Orally Twic e a day Active Farxiga 10 MG 1 tablet Orally Once a day Active Isosorbide Dinitrate Active Social History Tobacco Use: Social History Observation Description Date Details (start date - stop date) Never Smoker NA - NA Tobacco Control (Standard) Question Answer Notes Tobacco use: Nonsmoker AUDIT-C (Standard) Question Answer Notes Did you have a drink containing alcohol in the p ast year? No Points 0 Interpretation Negative Problems Problem Type SNOMED Code ICD Code Onset Dates Problem Status W/U Status Risk Notes Problem Gross hematuria (146108001) Gross hematuria (R31.0) Active confirmed Problem Lower urinary tract symptoms due to benign prostatic hypertrophy (85732316671764) Benign prostatic hyperplasia with lower urinary tract symptoms (N40.1) Active confirmed Problem Urinary tract infectious disease (14738489) Complicated UTI (urinary tract infection) (N39.0) Active confirmed Problem Incomplete bladder emptying (196199223) Incomplete bladder emptying (R33.9) Active confirmed Problem Urine stream spraying (R39.198) Active confirmed Vital Signs Heart Rate 85 /min 11/14/2024 195 Height-cm 175.26 cm 11/14/2024 195 Blood pressure diastolic 65 mm Hg 11/14/2024 195 Weight-kg 88.45 kg 11/14/2024 195 Height 69 in 11/14/2024 195 Blood pressure systolic 113 mm Hg 11/14/2024 195 Weight 195 lbs 11/14/2024 195 BMI 28.79 kg/m2 11/14/2024 195 Procedures Procedure Date Ordered Date Performed Result Body Sit e Bladder Scan 11/07/2024 N/A Encounters Encounter Location Date Provider Diagnosis [facility] [address] [place] [address] 11/07/2024 STEFAN SHARMA Bladder mass N32.89 ; Establishing care with new doctor, encounter for Z76.89 ; Complicated UTI (urinary tract infection) N39.0 ; Gross hematuria R31.0 ; Urine stream spraying R39.198 and Incomplete bladder emptying R33.9 [facility] [address] [address] 11/14/2024 SHELLY RIVERS Bladder mass N32.89 ; Benign prostatic hyperplasia with lower urinary tract symptoms N40.1 ; Establishing care with new doctor, encounter for Z76.89 ; Complicated UTI (urinary tract infection) N39.0 ; Gross hematuria R31.0 ; Urine stream spraying R39.198 and Incomplete bladder emptying R33.9 [facility] [address] [place] [address] 11/20/2024 STEFAN SHARMA [facility] [address] [place] [address] 10/31/2024 STEFAN SHARMA DO NOT USE THIS FACILITY [facility] [address] [phone] 11/08/2024 STEFAN SHARMA Assessments Encounter Date Diagnosis (ICD Code) Assessment Notes Treatment Notes Treatment Clinical Notes Section Notes 11/07/2024 Establishing care with new doctor, encounter for (ICD-10 - Z76.89) 11/14/2024 Benign prostatic hyperplasia with lower urinary [...] Rx Doxycycline 100mg bid x 7 days 11/07/2024 Bladder mass (ICD-10 - N32.89) 11/14/2024 Bladder mass (ICD-10 - N32.89) 83 [...] Rx Doxycycline 100mg bid x 7 days 11/07/2024 Complicated UTI (urinary tract infection) (ICD-10 - N39.0) 11/07/2024 Gross hematuria (ICD-10 - R31.0) 11/14/2024 Complicated UTI (urinary tract infection) (ICD-10 [...] Rx Doxycycline 100mg bid x 7 days 11/07/2024 Urine stream spraying (ICD-10 - R39.198) 11/14/2024 Gross hematuria (ICD-10 - R31.0) 83 [...] Rx Doxycycline 100mg bid x 7 days 11/07/2024 Incomplete bladder emptying (ICD-10 - R33.9) 11/14/2024 Incomplete bladder emptying (ICD-10 - R33.9) [...] Rx Doxycycline 100mg bid x 7 days 11/07/2024 Other UA still appears infected despite being on Bactrim. Send for PCR today, call with results and adjust treatment. We have discussed proceeding with cystoscopy to assess for stricture due to spraying urine stream and possible bladder mass. He is agreeable. There is a cystoscopy slot available next week, so he will RTC at that time. Plan Of Treatment Pending Test Test Name Order Date Bladder Scan 11/07/2024 Next Appt Details Provider Name:SHELLY Oswald RANDLELatesha Ortiz, 12/04/2024 09:00:00 AM, [address] [place], [address], Insurance Providers Payer Name Payer Address Payer Phone Subscriber Number Group Number Insured Name Patient Relationship to Insured Coverage Start Date Coverage End Date [employer] Medicare Replacement [address] [address] [place], [place] [id number] Thong Salgado Self - patient is the insured Medical (General) History Medical History History ICD Code arthritis skin cancer heart disease high cholesterol high blood pressure high thyroid stroke AFIB bladder mass Surgical History Surgery Date(Month/Year) pace maker skin cancer removal Appendectomy Double bypass Valve Hospitalization History Reason Date(Month/Year) See surgery hx
--- OUTSIDE RECORDS SUMMARY | 2024-11-20 16:27 | XMS_ITS | Data Portability ---
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 Not available 11/19/2024 09:58:38 Plan of Treatment Reminders Order Date Submit Date Provider Last Modified By Organization Details Last Modified Time Details Appointments OFFICE VISIT CHUNG 2024 09:45A M Jerardo Chung MD Not available Not available Not available Lab CMP, serum or plasma 2024 025 MINDEN [facility], [address] [facility], [facility] 1, [place], [address], 11/18/2024 10:13:51 uric acid, serum or plasma 2024 025 [facility]ulate [facility], [address] [place] [address] 248, [address], [place], [address], 11/05/2024 13:58:13 microalbu min/creat inine, mass ratio, urine 2024 025 [employer] [facility], [address] [place] [address] 248, [address], [place], [address], 11/05/2024 13:58:14 hemoglobi n A1C/hemog lobin total, QN, blood 2024 025 [facility], [address] [facility], [facility] 1, [place], [address], 11/04/2024 11:14:53 CMP, serum or plasma 2024 025 [facility], [address] [facility], [address], [address], 11/04/2024 11:00:08 pro BNP (pro B-type natriuret ic peptide), serum or plasma 2024 025 [employer] [facility], [address] [place] [address], [address] , [place], [address], 11/05/2024 13:58:15 T4, free, serum 2024 025 [employer] [facility], [address] [place] [address], [address] , [place], [address], 11/05/2024 13:58:15 thyrotrop in, QN, serum or plasma 2024 025 [facility], [address] [facility], [facility] 1, [place], [address], 11/04/2024 12:44:48 CBC 2024 025 [facility], [address] [facility], [facility] 1, [place], [address], 11/04/2024 11:14:48 ESR (erythroc yte sedimenta tion rate), blood 2024 025 [facility] ([facility]), [address] [place], [address], 11/05/2024 09:27:06 C-reactiv e protein, quantitat aminta, serum or plasma 2024 025 tabulate [facility], [address] [facility] [address], [address] Alex C, [place], [address], 11/05/2024 13:58:14 urinalysi s, complete 2024 025 [facility], [address] [facility], [facility] 1, [place], [address], 10/16/2024 14:46:05 culture, urine 2024 025 tabulate [facility], [address] [facility] [address], [address], [place], [address], 10/17/2024 19:38:31 Referral otolaryng ologist referral 2024 025 [email or web address] Hilario Golden MD, [address] [facility] [place], [place], [address], 11/04/2024 09:30:19 urologist referral 2024 025 [facility], [address], [place], [address], 11/04/2024 16:07:37 Procedures None recorded. Surgeries None recorded. Imaging None recorded. Medication Orders levothyro xine 50 mcg tablet 2024 025 [facility] [place], [address] [place], [address], 11/04/2024 10:40:20 Patient TargetsNo targets recorded. Patient InstructionsNo instructions recorded. Reason for Referral [facility] Dining Room Attendant Referral fo r Lesion of ear canal Referring Physician: Jerardo Chung, Family Medicine, Encounter Date: 10/21/2024 Urologist Referral for Mass of urinary bladder Referring Physician: Jerardo Chung Family Medicine, Encounter Date: 10/21/2024 Results Created Date Observation Date Name Description Value Unit Range Abnormal Flag Note LastModifiedBy Organization Detail LastModifiedTime 09/20/19 25 09/26/2024 URINA LYSIS WITH MICRO color YELLOW Not Available [facility] [address], [place], [address], 09/26/2024 11:07:27 09/20/19 25 09/26/2024 URINA LYSIS WITH MICRO clarity CLOUDY abnormal Not Available [facility] [address], [place], [address], 09/26/2024 11:07:27 09/20/19 25 09/26/2024 URINA LYSIS WITH MICRO glu 3+ abnormal Not Available [facility] [address], [place], [address], 09/26/2024 11:07:27 09/20/19 25 09/26/2024 URINA LYSIS WITH MICRO bili NEGATI VE Not Available [facility] [address], [place], [address], 09/26/2024 11:07:27 09/20/1909/26/2024 URINA LYSIS WITH MICRO ket NEGATI VE Not Available [facility] [address], [place], [address], 09/26/2024 11:07:27 09/20/19 25 09/26/2024 URINA LYSIS WITH MICRO S.g 1.015 1.005- 1.025 Not Available [facility] [address], [place], [address], 09/26/2024 11:07:27 09/20/19 25 09/26/2024 URINA LYSIS WITH MICRO pH 5.5 5.0-7. 0 Not Available [facility] [address], [place], [address], 09/26/2024 11:07:27 09/20/19 25 09/26/2024 URINA LYSIS WITH MICRO pro 1+ abnormal Not Available [facility] [address], [place], [address], 09/26/2024 11:07:27 09/20/19 25 09/26/2024 URINA LYSIS WITH MICRO uro 0.2 E.U./D L Not Available [facility] [address], [place], [address], 09/26/2024 11:07:27 09/20/19 25 09/26/2024 URINA LYSIS WITH MICRO nit NEGATI VE Not Available [facility] [address], [place], [address], 09/26/2024 11:07:27 09/20/19 25 09/26/2024 URINA LYSIS WITH MICRO blo TRACE- INTACT Not Available [facility] [address] [place] [address], [place], [address], 09/26/2024 11:07:27 09/20/19 25 09/26/2024 URINA LYSIS WITH MICRO bryanna 1+ abnormal Not Available [facility] [address] [place] [address], [place], [address], 09/26/2024 11:07:27 09/20/19 25 09/26/2024 URINA LYSIS WITH MICRO WBC 80-100 abnormal Not Available [facility] [address], [place], [address], 09/26/2024 11:07:27 09/20/19 25 09/26/2024 URINA LYSIS WITH MICRO RBC 1-2 Not Available [facility] [address], [place], [address], 09/26/2024 11:07:27 09/20/19 25 09/26/2024 URINA LYSIS WITH MICRO epi cells 1-2 Not Available [facility] [address] [facility] 1, [place], [address], 09/26/2024 11:07:27 09/20/19 25 09/26/2024 URINA LYSIS WITH MICRO bacteria NEGATI VE Not Available [facility] [address] [facility] 1, [place], [address], 09/26/2024 11:07:27 09/20/19 25 09/26/2024 URINA LYSIS WITH MICRO other NG Not Available [facility] [address] [facility] 1, [place], [address], 09/26/2024 11:07:27 09/27/19 25 09/28/2024 CULTU RE, URINE , ROUTI NE culture, urine, routine SEE NOTE CULTU RE, URINE , ROUTI NE Micro Numbe r: [id number] Test Statu s: Final Speci men Sourc e: Urine Speci men Quali ty: Adequ ate Resul [...] Cultu re Trans port Tube. Not Available [facility] [address] [address], [place], [address], 09/28/2024 02:16:37 10/17/19 25 10/16/2024 URINA LYSIS WITH MICRO color YELLOW Not Available [facility] [address] [facility] 1, [place], [address], 10/16/2024 14:46:05 10/17/19 25 10/16/2024 URINA LYSIS WITH MICRO clarity CLOUDY abnormal Not Available [facility] [address] [facility] [address], [place], [address], 10/16/2024 14:46:05 10/17/19 25 10/16/2024 URINA LYSIS WITH MICRO glu 3+ abnormal Not Available [facility] [address], [place], [address], 10/16/2024 14:46:05 10/17/1910/16/2024 URINA LYSIS WITH MICRO bili NEGATI VE Not Available [facility] [address], [place], [address], 10/16/2024 14:46:05 10/17/1910/16/2024 URINA LYSIS WITH MICRO ket NEGATI VE Not Available [facility] [address], [place], [address], 10/16/2024 14:46:05 10/17/19 25 10/16/2024 URINA LYSIS WITH MICRO S.g 1.020 Not Available [facility] [address] [facility] [address], [place], [address], 10/16/2024 14:46:05 10/17/19 25 10/16/2024 URINA LYSIS WITH MICRO pH 5.5 Not Available [facility] [address] [place] [address], [place], [address], 10/16/2024 14:46:05 10/17/1910/16/2024 URINA LYSIS WITH MICRO pro 2+ abnormal Not Available [facility] [address] [facility] [address], [place], [address], 10/16/2024 14:46:05 10/17/19 25 10/16/2024 URINA LYSIS WITH MICRO uro 0.2 E.U./D L Not Available [facility] [address] [facility] [address], [place], [address], 10/16/2024 14:46:05 10/17/1910/16/2024 URINA LYSIS WITH MICRO nit NEGATI VE Not Available [facility] [address], [place], [address], 10/16/2024 14:46:05 10/17/1910/16/2024 URINA LYSIS WITH MICRO blo TRACE- INTACT abnormal Not Available [facility] [address] [place] [address], [place], [address], 10/16/2024 14:46:05 10/17/1910/16/2024 URINA LYSIS WITH MICRO bryanna TRACE abnormal Not Available [facility] [address] [facility] [address] 1, [place], [address], 10/16/2024 14:46:05 10/17/19 25 10/16/2024 URINA LYSIS WITH MICRO WBC 100 abnormal > Not Available [facility] [address] [facility] 1, [place], [address], 10/16/2024 14:46:05 10/17/19 25 10/16/2024 URINA LYSIS WITH MICRO RBC NEGATI VE Not Available [facility] [address] [facility] 1, [place], [address], 10/16/2024 14:46:05 10/17/19 25 10/16/2024 URINA LYSIS WITH MICRO epi cells NEGATI VE Not Available [facility] [address] [facility] 1, [place], [address], 10/16/2024 14:46:05 10/17/19 25 10/16/2024 URINA LYSIS WITH MICRO bacteria NEGATI VE Not Available [facility] [address] [facility] 1, [place], [address], 10/16/2024 14:46:05 10/17/19 25 10/16/2024 URINA LYSIS WITH MICRO other NG Not Available [facility] [address] [place] [address] [facility] 1, [place], [address], 10/16/2024 14:46:05 10/17/19 25 10/17/2024 CULTU RE, URINE , ROUTI NE culture, urine, routine SEE NOTE CULTU RE, URINE , ROUTI NE Micro Numbe r: [id number] Test Statu s: Final Speci men Sourc e: Urine Speci men Quali ty: Adequ ate Resul [...] Cultu re Trans port Tube. Not Available [facility] [address] [address], [place], [address], 10/17/2024 19:38:31 10/29/1910/28/2024 URINA LYSIS WITH MICRO color YELLOW Not Available [facility] [address] [place] [facility], [place], [address], 10/28/2024 11:29:59 10/29/1910/28/2024 URINA LYSIS WITH MICRO clarity CLOUDY abnormal Not Available [facility] [address] [place] [facility], [place], [address], 10/28/2024 11:29:59 10/29/19 25 10/28/2024 URINA LYSIS WITH MICRO glu 2+ abnormal Not Available [facility] [address] [place] [facility], [place], [address], 10/28/2024 11:29:59 10/29/19 25 10/28/2024 URINA LYSIS WITH MICRO bili NEGATI VE Not Available [facility] [address] [place] [address], [place], [address], 10/28/2024 11:29:59 10/29/19 25 10/28/2024 URINA LYSIS WITH MICRO ket NEGATI VE Not Available [facility] [address] [place] [address], [place], [address], 10/28/2024 11:29:59 10/29/19 25 10/28/2024 URINA LYSIS WITH MICRO S.g 1.015 Not Available [facility] [address] [place] [address] [facility] 1, [place], [address], 10/28/2024 11:29:59 10/29/19 25 10/28/2024 URINA LYSIS WITH MICRO pH 6.5 Not Available [facility] [address] [facility] 1, [place], [address], 10/28/2024 11:29:59 10/29/19 25 10/28/2024 URINA LYSIS WITH MICRO pro 1+ abnormal Not Available [facility] [address] [place] [address], [place], [address], 10/28/2024 11:29:59 10/29/19 25 10/28/2024 URINA LYSIS WITH MICRO uro 0.2 E.U./D L Not Available [facility] [address] [place] [address], [place], [address], 10/28/2024 11:29:59 10/29/19 25 10/28/2024 URINA LYSIS WITH MICRO nit NEGATI VE Not Available [facility] [address] [place] [address], [place], [address], 10/28/2024 11:29:59 10/29/19 25 10/28/2024 URINA LYSIS WITH MICRO blo TRACE- INTACT abnormal Not Available [facility] [address] [facility] 1, [place], [address], 10/28/2024 11:29:59 10/29/19 25 10/28/2024 URINA LYSIS WITH MICRO bryanna 3+ abnormal Not Available [facility] [address] [facility] 1, [place], [address], 10/28/2024 11:29:59 10/29/19 25 10/28/2024 URINA LYSIS WITH MICRO WBC 100 abnormal > Not Available [facility] [address] [facility] 1, [place], [address], 10/28/2024 11:29:59 10/29/19 25 10/28/2024 URINA LYSIS WITH MICRO RBC 15-20 abnormal Not Available [facility] [address] [facility] 1, [place], [address], 10/28/2024 11:29:59 10/29/19 25 10/28/2024 URINA LYSIS WITH MICRO epi cells NEGATI VE Not Available [facility] [address] [facility] 1, [place], [address], 10/28/2024 11:29:59 10/29/19 25 10/28/2024 URINA LYSIS WITH MICRO bacteria TRACE OF AMORPH OUS abnormal Not Available [facility] [address] [facility] 1, [place], [address], 10/28/2024 11:29:59 10/29/19 25 10/28/2024 URINA LYSIS WITH MICRO other NG Not Available [facility] [address] [facility] 1, [place], [address], 10/28/2024 11:29:59 10/29/19 25 10/30/2024 CULTU RE, URINE , ROUTI NE culture, urine, routine SEE NOTE CULTU RE, URINE , ROUTI NE Micro Numbe r: [id number] Test Statu s: Final Speci men [...] Cultu re Trans port Tube. Not Available [facility] [address] [place], [address], 10/30/2024 02:53:06 11/05/1911/04/2024 CMP (MALE ) glucose 154.0 mg/dL 60.0-9 9.0 high Not Available [facility] [address], [address], 11/04/2024 11:00:08 11/05/1911/04/2024 CMP (MALE ) BUN (blood urea nitrogen) 23.0 mg/dL 10.0-2 6.0 Not Available [facility] [address], [address], 11/04/2024 11:00:08 11/05/1911/04/2024 CMP (MALE ) creatinine (serum) 2.1 mg/dL 0.4-1. 5 high Not Available [facility] [address] [facility] 1, [place], [address], 11/04/2024 11:00:08 11/05/1911/04/2024 CMP (MALE ) BUN/creatini ne ratio 10.95 ratio Not Available [facility] [address] [facility] 1, [place], [address], 11/04/2024 11:00:08 11/05/1911/04/2024 CMP (MALE ) eGFR calculated 32.2 Not Available [facility] [address] [facility] 1, [place], [address], 11/04/2024 11:00:08 11/05/19 25 11/04/2024 CMP (MALE ) total protein 8.4 g/dL 6.0-8. 5 Not Available [facility] [address] [facility], [place], [address], 11/04/2024 11:00:08 11/05/1911/04/2024 CMP (MALE ) total bilirubin 0.6 mg/dL 0.2-1. 3 Not Available [facility] [address] [facility], [place], [address], 11/04/2024 11:00:08 11/05/1911/04/2024 CMP (MALE ) albumin 5.0 g/dL 3.5-5. 5 Not Available [facility] [address] [facility], [place], [address], 11/04/2024 11:00:08 11/05/1911/04/2024 CMP (MALE ) globulin 3.4 calc Not Available [facility] [address] [facility] 1, [place], [address], 11/04/2024 11:00:08 11/05/1911/04/2024 CMP (MALE ) AST (SGOT) 34.0 U/L 0.0-46 .0 Not Available [facility] [address] [facility], [place], [address], 11/04/2024 11:00:08 11/05/19 25 11/04/2024 CMP (MALE ) altv (SGPT) 25.0 U/L 13.0-6 9.0 normal Not Available [facility] [address] Gene Martínez [facility] 1, [place], [address], 11/04/2024 11:00:08 11/05/1911/04/2024 CMP (MALE ) A/G ratio 1.5 ratio Not Available [facility] [address] [place] [address] [facility] 1, [place], [address], 11/04/2024 11:00:08 11/05/19 25 11/04/2024 CMP (MALE ) ALP phos 51.0 U/L 30.0-1 40.0 normal Not Available [facility] [address] [facility] 1, [place], [address], 11/04/2024 11:00:08 11/05/1911/04/2024 CMP (MALE ) calcium 9.8 mg/dL 8.4-10 .5 Not Available [facility] [address] [facility], [place], [address], 11/04/2024 11:00:08 11/05/1911/04/2024 CMP (MALE ) sodium 139.0 mmol/ L 136.0- 145.0 Not Available [facility] [address] [facility] 1, [place], [address], 11/04/2024 11:00:08 11/05/1911/04/2024 CMP (MALE ) potassium 4.4 mmol/ L 3.5-5. 1 Not Available [facility] [address] [facility] 1, [place], [address], 11/04/2024 11:00:08 11/05/19 25 11/04/2024 CMP (MALE ) chloride 101.0 mmol/ L 98.0-1 10.0 normal Not Available [facility] [address] [facility] 1, [place], [address], 11/04/2024 11:00:08 11/05/19 25 11/04/2024 CMP (MALE ) C02 23.0 mmol/ L 22.0-3 1.0 Not Available [facility] [address] Gene Martínez [facility] 1, [place], [address], 11/04/2024 11:00:08 11/05/19 25 11/04/2024 CMP (MALE ) anion gap 15.0 calc Not Available [facility] [address] Martí[address] [facility] 1, [place], [address], 11/04/2024 11:00:08 11/05/1911/04/2024 CMP (MALE ) osmolality 293.4 calc Not Available [facility] [address] Martínez [facility] 1, [place], [address], 11/04/2024 11:00:08 11/05/1911/04/2024 CBC WBC 4.6 x10 4.5-10 .5 Not Available [facility] [address] Gene Martínez [facility] 1, [place], [address], 11/04/2024 11:14:48 11/05/1911/04/2024 CBC RBC 3.97 x10 4.30-5 .90 low Not Available [facility] [address] [facility] 1, [place], [address], 11/04/2024 11:14:48 11/05/1911/04/2024 CBC HGB 12.7 g/dL 13.5-1 8.0 low Not Available [facility] [address] Martí[address] [facility] 1, [place], [address], 11/04/2024 11:14:48 11/05/1911/04/2024 CBC HCT 39.9 % 35.0-6 0.0 Not Available [facility] [address] Gene Martínez [facility] 1, [place], [address], 11/04/2024 11:14:48 11/05/19 25 11/04/2024 CBC MCV 100.6 fL 80.0-9 9.9 high Not Available [facility] [address] Martí[address] [facility] 1, [place], [address], 11/04/2024 11:14:48 11/05/19 25 11/04/2024 CBC MCH 32.0 pg 27.0-3 2.0 Not Available [facility] [address] [facility] 1, [place], [address], 11/04/2024 11:14:48 11/05/1911/04/2024 CBC MCHC 31.9 g/dL 32.0-3 6.0 low Not Available [facility] [address] [facility] 1, [place], [address], 11/04/2024 11:14:48 11/05/1911/04/2024 CBC RDW 13.1 % 11.5-1 4.5 Not Available [facility] [address] [facility] 1, [place], [address], 11/04/2024 11:14:48 11/05/1911/04/2024 CBC plt 277.0 x10 150.0- 451.0 Not Available [facility] [address] [facility] 1, [place], [address], 11/04/2024 11:14:48 11/05/1911/04/2024 CBC lymphocytes % 29.4 % 20.0-5 0.0 Not Available [facility] [address] [facility] 1, [place], [address], 11/04/2024 11:14:48 11/05/1911/04/2024 CBC granulcytes % 56.8 % 30.0-7 0.0 Not Available [facility] [address] [facility] 1, [place], [address], 11/04/2024 11:14:48 11/05/1911/04/2024 CBC monocytes % 10.0 % 2.0-16 .0 Not Available [facility] [address] [place] [address] [address], [place], [address], 11/04/2024 11:14:48 11/05/1911/04/2024 CBC granulcytes# 2.6 x10 Not Nola ilable [facility] [address] [facility] 1, [place], [address], 11/04/2024 11:14:48 11/05/19 25 11/04/2024 CBC lymphocytes # 1.3 x10 Not Available [facility] [address] [place] [address] [address], [place], [address], 11/04/2024 11:14:48 11/05/1911/04/2024 CBC monocytes # 0.5 x10 Not Avai lable [facility] [address] [place] [facility], [place], [address], 11/04/2024 11:14:48 11/05/1911/04/2024 HBA1C hemaglobin A1C 6.8 4.2-6. 5 high Not Available [facility] [address] [place] [address] [address], [place], [address], 11/04/2024 11:14:53 11/05/1911/04/2024 TSH TSH 12.78 uIU/m L 0.49-3 .82 high Not Available [facility] [address] [place] [facility], [place], [address], 11/04/2024 12:44:48 11/05/19 25 11/05/2024 URIC ACID uric acid 6.1 mg/dL 4.0-8. 0 normal Thera peuti c targe t for gout patie nts: <6.0 mg/dL Not Available [address], [address], 11/05/2024 13:58:13 11/05/19 25 11/05/2024 ALBUM IN, RANDO M URINE W/CRE ATINI NE creatinine, random urine 48 mg/dL 20-320 normal Not Available [address] [address] [place], [address], 11/05/2024 13:58:14 11/05/1911/05/2024 ALBUM IN, RANDO M URINE W/CRE ATINI NE albumin, urine 16.4 mg/dL see note: normal Refer ence Range : Refer ence Range Not estab lishe d Not Available [address], [address], 11/05/2024 13:58:14 11/05/19 25 11/05/2024 ALBUM IN, [...] a diagn ostic categ ory. Not Available [address], [address], 11/05/2024 13:58:14 11/05/19 25 11/05/2024 C-JESSA CTIVE PROTE IN C-reactive protein <3.0 mg/L <8.0 normal Not Available [facility] [address] [place], [address], 11/05/2024 13:58:14 11/05/1911/05/2024 T4, FREE T4, free 0.8 NG/dL 0.8-1. 8 normal Not Available [facility] [address] [place], [address], 11/05/2024 13:58:14 11/05/1911/05/2024 B TYPE NATRI URETI [...] ol. 2002; 40:97 6-982 . Not Available [facility] [address] [place], [address], 11/05/2024 13:58:15 11/06/1911/05/2024 ESR (eryt hrocy te sedim entat ion rate) , blood SedRate [address] [facility] ([facility] [address] [place], [address], 11/04/2024 10:05:43 11/19/1911/18/2024 CMP (MALE ) glucose 177.0 mg/dL 60.0-9 9.0 high Not Available [facility] [address] [facility] [address], [address], 11/18/2024 10:13:51 11/19/1911/18/2024 CMP (MALE ) BUN (blood urea nitrogen) 40.0 mg/dL 10.0-2 6.0 high Not Available [facility] [address] [facility] [address], [address], 11/18/2024 10:13:51 11/19/19 25 11/18/2024 CMP (MALE ) creatinine (serum) 1.9 mg/dL 0.4-1. 5 high Not Available [facility] [address], [place], [address], 11/18/2024 10:13:51 11/19/19 25 11/18/2024 CMP (MALE ) BUN/creatini ne ratio 21.05 ratio Not Available [facility] [address], [place], [address], 11/18/2024 10:13:51 11/19/1911/18/2024 CMP (MALE ) eGFR calculated 36.2 Not Available [facility] n [facility] [address], [place], [address], 11/18/2024 10:13:51 11/19/19 25 11/18/2024 CMP (MALE ) total protein 7.5 g/dL 6.0-8. 5 Not Available [facility] [address] [facility], [place], [address], 11/18/2024 10:13:51 11/19/19 25 11/18/2024 CMP (MALE ) total bilirubin 0.9 mg/dL 0.2-1. 3 Not Available [facility] [address] [facility], [place], [address], 11/18/2024 10:13:51 11/19/19 25 11/18/2024 CMP (MALE ) albumin 4.1 g/dL 3.5-5. 5 Not Available [facility] [address] [facility], [place], [address], 11/18/2024 10:13:51 11/19/19 25 11/18/2024 CMP (MALE ) globulin 3.4 calc Not Available [facility] [address] [facility] [place], [address], 11/18/2024 10:13:51 11/19/1911/18/2024 CMP (MALE ) AST (SGOT) 63.0 U/L 0.0-46 .0 high Not Available [facility] [address] [facility], [place], [address], 11/18/2024 10:13:51 11/19/1911/18/2024 CMP (MALE ) altv (SGPT) 48.0 U/L 13.0-6 9.0 normal Not Available [facility] [address] [facility], [place], [address], 11/18/2024 10:13:51 11/19/1911/18/2024 CMP (MALE ) A/G ratio 1.2 ratio Not Available [facility] [address] [facility], [place], [address], 11/18/2024 10:13:51 11/19/1911/18/2024 CMP (MALE ) ALP phos 45.0 U/L 30.0-1 40.0 normal Not Available [facility] [address] [facility], [place], [address], 11/18/2024 10:13:51 11/19/1911/18/2024 CMP (MALE ) calcium 9.0 mg/dL 8.4-10 .5 Not Available [facility] [address] [facility], [place], [address], 11/18/2024 10:13:51 11/19/1911/18/2024 CMP (MALE ) sodium 134.0 mmol/ L 136.0- 145.0 low Not Available [facility] [address] [facility], [place], [address], 11/18/2024 10:13:51 11/19/1911/18/2024 CMP (MALE ) potassium 3.3 mmol/ L 3.5-5. 1 low Not Available [facility] [address] [facility] [address], [place], [address], 11/18/2024 10:13:51 11/19/19 25 11/18/2024 CMP (MALE ) chloride 98.0 mmol/ L 98.0-1 10.0 normal Not Available [facility] [address], [place], [address], 11/18/2024 10:13:51 11/19/1911/18/2024 CMP (MALE ) C02 26.0 mmol/ L 22.0-3 1.0 Not Available [facility] [address], [place], [address], 11/18/2024 10:13:51 11/19/1911/18/2024 CMP (MALE ) anion gap 10.0 calc Not Available [facility] [address] [facility], [place], [address], 11/18/2024 10:13:51 11/19/1911/18/2024 CMP (MALE ) osmolality 290.2 calc Not Available [facility] [address] [facility], [place], [address], 11/18/2024 10:13:51 10/18/1910/15/2024 US, carlitos y No observ ation record ed. [email or web address] [facility] [address] [facility], [place], [address], 10/21/2024 12:34:46 Result Notes None recorded. Problems Name Problem [...] ; acuity set as *; Not Available [facility] 3 03:10:27 Benign hyperten pauline [id number] Completed 202010/22/2020 HTN - Status is Inactive ; 10/23/19 9:23AM by Nicole Chung PA-C, Annotati on/Adden dum; Promoted ; acuity set as *; Not Available [facility] 3 03:10:27 General examinat ion of patient Completed 202111/18/2021 GENERAL MEDICAL EXAM - Status is Inactive ; Recorded 11/19/19 12:44PM by Janis Jesus LPN, Annotati on/Adden dum; Promoted ; acuity set as *; Not Available [facility] 3 03:10:27 Body mass index 25-29 - [facility] 701987579 Active 2022 BODY MASS INDEX (BMI) 28.0-28. 9, ADULT; Recorded 03/11/19 23 8:52AM by Janis Jesus LPN, Office Visit; Promoted ; acuity set as *; BMI 28.0-28. 9,ADULT - Status is Inactive ; Recorded 01/05/20 22 6:50AM by Naomi Long LPN, Annotati on/Adden dum; Promoted ; acuity set as *; ; Start Date : 01/05/20 [facility] 23:20:42 Aortic stenosis , non-rheu matic 137159383 Active 2022 SEVERE AORTIC STENOSIS ; Recorded [...] ; Start Date : 11/20/19 Radha garcía [facility] 5 23:20:43 Anemia 552540339 Active 2022 ANEMIA; Recorded 03/11/19 8:52AM by Janis Jesus LPN, Office Visit; Promoted ; acuity set as *; Radha garcía [facility] 5 23:20:43 Carotid artery stenosis 15686237 Active 2022 Radha garcía [facility] 5 23:20:43 Congesti ve heart failure 14041140 Active 2022 JANIS garcía [facility] 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 3 10:22:00 History of peripher al arterial occlusiv e disease 601230438 Completed 202205/06/2024 Radha garcía [facility] 5 23:20:02 [facility] l hyperten pauline 77313000 Active 2022 JANIS garcía, [facility] 5 11:22:59 Hyperlip idemia 31105843 Active 2022 JANIS JESUS null, [facility] 5 11:23:22 Angina pectoris 426895705 Completed 202205/06/2024 Radha Garcia null, [facility] 5 23:20:02 Chronic systolic heart failure 109410955 Active 2022 JANIS JESUS null, [facility] [place] 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 5 23:20:43 Nonexuda tive age-rela french macular degenera tion 569200933 Active 2022 Radha Garcia null, [facility] 5 23:20:43 Atrial fibrilla tion 88803294 Active 2023 JANIS JESUS null, [facility] 5 11:22:20 Low back pain 033116253 Active 2023 Radha Garcia null, [facility] 5 23:20:43 Leukopen ia 55346031 Active 2023 Radha Garcia null, [facility] 23:20:43 Chronic diastoli c heart failure 767253030 Active 2023 JANIS JESUS null, [facility] 5 11:22:34 Acute kidney injury 39042424 Completed 202305/06/2024 Radha Garcia null, [facility] 5 23:20:02 Thyroid stimulat ing hormone level above referenc e range 852500769 Active 2023 Radha Garcia null, [facility] 5 23:20:43 Infectio n of sebaceou s cyst 816590766 Completed 202305/06/2024 Radha Garcia null, [facility] 5 23:20:54 Rheumato id arthriti s 38576777 Active 2024 Radha Garcia null, [facility] 5 23:20:43 Peripher al vascular disease 057373289 Active 2024 Radha garcía, [facility] 5 23:20:43 Acute on chronic diastoli c heart failure 953085133 Active 2024 Radha Garcia null, [facility] 5 23:20:43 Chronic kidney disease due to type 2 diabetes mellitus 09438914517 8 Active 2024 Radha Garcia [facility] 5 12:18:38 Age related macular degenera tion 765057669 Active 2024 Radha Garcia [facility], [facility] 5 12:18:31 Chronic kidney disease stage 3B 469557238 Active 2024 JANIS JESUS [facility], [facility] 5 10:33:25 Maksim hematuri a 931782293 Active 2024 Radha Garcia [facility], [facility] 08/25/202 5 16:48:14 Prostati tis 2552676 Active 2024 [facility] 16:48:20 Dysuria 14983764 Active 2024 Radha Garcia [facility] 5 14:02:50 Acute urinary tract infectio n 359056943 Active 2024 JANIS JESUS [facility] 14:43:11 Problem Notes None recorded. Procedures Surgical History Date Name Laterality Status Provider Name and Address Organization Details Recorded Time coronary artery bypass grafts x 2 completed [facility] 08/03/2022 10:25:38 tonsillectomy completed [facility] 08/03/2022 10:25:47 Mohs surgery completed [facility] 08/03/2022 10:26:13 replacement of aortic valve completed [facility] 08/03/2022 10:26:52 appendectomy completed [facility] 05/06/2024 23:21:08 cardiac pacemaker procedure completed [facility] 05/06/2024 23:21:25 Imaging Results None recorded. Procedure Notes None recorded. Medical Equipment None Reported. Allergies Allergen ID Allergen Name Allergen Category Reaction Reaction Severity Criticality Documentation Date Start Date Code Code System Note Provider Name and Address Organization Details Recorded Time 1012 Product containin g penicilli n (product) medicatio n Not available Not available Not available 05/11/2022 66018 8001 SNOMED Radha Radha [facility] 3 09:16:51 1013 allopurin ol medicatio n Not available Not available Not available 05/11/2022 519 RxNorm Radha garcía, [facility] 3 09:17:18 1014 ciproflox acin medicatio n Not available Not available Not available 05/11/2022 2551 RxNorm Radha garcía, [facility] 3 09:17:30 01758 ciproflox acin hydrochlo ride medicatio n dizziness Not available Not available 09/03/2022 62005 RxNorm React ion: Dizzi ness; Comme nt: Recor ded 03/11 8:52A M by Candelaria Miles on, INSURANCE ADMINISTRATIVE ASSISTANT, Offic e Visit ; Promo french; Danielle knapp ce: *; ; [facility] 4 10:04:36 60729 lisinopri l medicatio n cough Not available Not available 09/03/2022 77393 RxNorm JANIS garcía, [facility] 4 10:13:16 85816 simvastat in medicatio n Not available Not available Not available 09/03/2022 91277 RxNorm [facility] 4 10:13:20 Medications Name Sig [...] 03/11/19 8:52AM by Janis Jesus LPN (Authori erind through Jerardo Chung MD), Office Visit; Refill [...] Details Last Updated DateTime 5 176.53 cm 30.9 kg/m2 91449.5 8 g 98.1 [degF] 91 /min 96 % 96 % 110/62 mm[Hg] JANIS JESUS [facility] 10:28:32 Date Recorded Body height Body mass index (BMI) Body weight Body temperature Heart rate Oxygen saturation Oxygen saturation in Arterial blood by Pulse oximetry Systolic And Diastolic Provider Name and Address Organization Details Last Updated DateTime 176.53 cm 31 kg/m2 41605.1 7 g 97.4 [degF] 92 /min 94 % 94 % 128/78 mm[Hg] Radha Garcia [facility] 12:29:50 Date Recorded Body height Body mass index (BMI) Body weight Body temperature Heart rate Oxygen saturation Oxygen saturation in Arterial blood by Pulse oximetry Systolic And Diastolic Provider Name and Address Organization Details Last Updated DateTime 5 176.53 cm 31.3 kg/m2 57817.3 6 g 97.6 [degF] 95 /min 97 % 97 % 110/66 mm[Hg] JANIS JESUS [facility] 09:30:54 Social History Question Answer Notes LastModified by Organizat ion Details LastModified Time Tobacco Smoking Status Never Smoker JANIS JESUS [facility] 08/03/2022 10:25:09 What Was The Date Of Your Most Recent Tobacco Screening? 08/07/2024 Information not available 08/07/2024 Sex: Unknown Functional Status Question Answer Note LastModified by Organization D etails LastModified Time Do you or have you ever used any other forms of tobacco or nicotine? No [email or web address] Information not available 04/26/2023 Do you or have you ever used any nicotine-free cigarettes, vape, or chewing tobacco? No [email or web address] Information not available 09/20/2023 Mental Status None recorded. Family History Relationship Description Onset Age of this Age Resolved Age Notes LastModified by Organization Details LastModified Time Father Cerebrovascu lar accident [email or web address] Not available 10:13:59 Mother Coronary atherosclero sis Not available 05/01 10:14:13 Medical History No medical history recorded. Immunizations Vaccine Type Date Status Note Provider Nam e and Address Organization Details Recorded Time Influenza, split virus, trivalent, preservative 8 completed JANIS garcía [facility] 04/26/2023 10:04:31 Influenza, split virus, trivalent, preservative 6 completed Not Available [facility] 09/03/2022 02:52:04 Influenza, split virus, trivalent, preservative 7 completed Not Available [facility] 09/03/2022 02:52:04 pneumococcal polysaccharide PPV23 7 completed Not Available [facility] 09/03/2022 02:52:04 Pneumococcal conjugate PCV 13 7 completed Not Available [facility] 09/03/2022 02:52:04 zoster live 7 completed Not Available [facility] 09/03/2022 02:52:05 Influenza, adjuvanted, trivalent, PF 5 completed JANIS garcía, [facility] 11/19/2024 11:55:16 Influenza, high-dose, quadrivalent, PF 1 completed JANIS garcía [facility] 04/26/2023 10:04:31 Influenza, high-dose, quadrivalent, PF 2 completed JANIS garcía [facility] 04/26/2023 10:04:31 COVID-19, mRNA, LNP-S, PF, 30 mcg/0.3 mL dose 1 completed JANIS JESUS null, [facility] 04/26/2023 10:04:31 COVID-19, mRNA, LNP-S, PF, 30 mcg/0.3 mL dose 1 completed JANIS JESUS null, [facility] 04/26/2023 10:04:31 COVID-19, mRNA, LNP-S, PF, 30 mcg/0.3 mL dose 2 completed JANIS JESUS null, [facility] 04/26/2023 10:04:31 COVID-19, mRNA, LNP-S, PF, 30 mcg/0.3 mL dose 1 completed JANIS JESUS null, [facility] 04/26/2023 10:04:31 COVID-19, mRNA, LNP-S, bivalent, PF, 30 mcg/0.3 mL dose 2 completed JANIS JESUS null, [facility] 04/26/2023 10:04:31 COVID-19, mRNA, LNP-S, PF, myriam-sucrose, 30 mcg/0.3 mL 3 completed JANIS JESUS null, [facility] 04/26/2023 10:04:31 Tdap 3 completed JANIS JESSU null, [facility] 04/26/2023 10:04:31 Influenza, high-dose, trivalent, PF 8 completed JANIS JESUS null, [facility] 04/26/2023 10:04:31 Hep A, adult 3 completed JANIS JESUS null, [facility] 04/26/2023 10:04:31 COVID-19, mRNA, LNP-S, PF, myriam-sucrose, 30 mcg/0.3 mL 4 completed JANIS JESUS null, [facility] 02/14/2024 11:20:35 Influenza, adjuvanted, trivalent, PF 4 completed Radhakori Garcia null, [facility] 11/30/2023 12:00:34 Past Encounters Encounter ID Performer Location Encounter Start Date Encounter Closed Date Diagnosis/Indication Diagnosis SNOMED-CT Code Diagnosis ICD10 Code Diagnosis IMO Codes Diagnosis Note [id number] Jerardo Chung MD [facility] ([facility]) [address] [place] [address] [id number] 5 05/11/2022 08:59:58 05/19/2022 20:00:54 Adult health examination 601204610 Z00.01 Gout 54442709 M10.9 Controlled atrial fibrillation 454969544 I48.91 [id number] Jerardo Chung MD [facility] ([facility]) [address] [place] [address] [id number] 5 07/27/2022 08:59:30 07/27/2022 11:09:15 [id number] Jerardo Chung MD [facility] ([facility]) [address] [place] [address] [id number] 5 08/03/2022 10:16:09 08/03/2022 11:48:52 Chronic systolic heart failure 226292285 I50.22 Angina pectoris 15897266 0 I20.8 Hyperlipidemia 72485762 E78.5 he is very stable and doing quite well overall Essential hypertension 12374089 I10 History of peripheral arterial occlusive disease 119151178 Z86.79 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 6105266742 82465 M06.09 [id number] Jerardo Chung MD [facility] ([facility]) [address] [place] [address] [id number] 01/18/2023 09:02:52 01/18/2023 12:39:39 Anemia 527779328 D64.9 Essential hypertension 89691117 I10 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 3036953938 68440 M06.09 History of peripheral arterial occlusive disease 278406376 Z86.79 [id number] Jerardo Chung MD [facility] ([facility]) [address] [place] [address] [id number] 01/25/2023 08:57:48 01/25/2023 10:13:31 Aortic stenosis, non-rheumatic 292512701 I35.0 Carotid ar mario stenosis 00331121 I65.29 Chronic sy stolic heart failure 204526699 I50.22 Essential hypertension 38564744 I10 History of peripheral arterial occlusive disease 221291367 Z86.79 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 4031065207 23831 M06.09 Angina pectoris 02031567 0 I20.9 Anemia 859943098 D64.9 Type 2 eric betes mellitus with peripheral angiopathy 373526873 E11.51 Nonexudati ve age-related macular degeneration 606796021 H35.3130 [id number] LORY ARCE [facility] ([facility]) [address] [place] [address] [id number] 5 02/11/2023 10:51:32 02/11/2023 11:49:44 Pneumonia 089805537 J18.9 [id number] Jerardo Chung MD [facility] ([facility]) [address] [place] [address] [id number] 02/16/2023 10:44:35 02/16/2023 11:38:10 Chronic systolic heart failure 941237936 I50.22 Angina pectoris 85866482 0 I20.89 Hyperlipidemia 27943814 E78.5 he is very stable and doing quite well overall Essential hypertension 52083290 I10 History of peripheral arterial occlusive disease 399884591 I73.9 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 Patient was provided with printed mobility-a ppropriate stretches to target the area and recommende d to do those stretches as tolerated at home. Can use topical menthol cream and massage of the area for symptomati c treatment. HEP demonstrat ed f/u if not improving [id number] Jerardo Chung MD [facility] ([facility]) [address] [place] [address] [id number] 5 05/02/2023 10:09:43 05/02/2023 12:06:35 Low back pain 988188690 M54.51 resolved, leg pain remains Iliotibial band friction syndrome 115353430 M76.31 at last visit the patient was advised to take medrol dose pack taper as prescribed . Patient was provided with printed mobility-a ppropriate stretches to target the area and recommende d to do those stretches as tolerated at home. Can use topical menthol cream and massage of the area for symptomati c treatment. HEP demonstrat ed he has failed. he was not massaging or doing HEP. Medrol did nothing. Pain of right thigh 3169 710723 14305 M79.449 [id number] Jerardo Chung MD [facility] ([facility]) [address] [place] [address] [id number] 05/12/2023 10:44:34 05/12/2023 12:07:31 Low back pain 092695173 M54.51 we discussed every single nuance of his life how many minutes to walk at a time how to stand and how to sleep and how to sit and when to move and etc. dayna has many great questions. [id number] Jerardo Chung MD [facility] ([facility]) [address] [place] [address] [id number] 5 05/17/2023 10:42:25 05/17/2023 16:07:24 Muscle spasm of thoracic back 8680834809 21205 M62.830 trigger point injection given in the right thoracic paraspinou s muscles. he tolerated it well and it completely relieved his symptoms. he is moving exceptiona lly well at the knee hip and back .marcaine and lidocaine 2% without epinephrin e [id number] Jerardo Chung MD [facility] ([facility]) [address] [place] [address] [id number] 5 06/06/2023 09:42:50 06/06/2023 12:30:11 Diabetes mellitus 59376629 E11.9 Near syncope 283620343 R 55 Digoxin le [facility] 059675102 Z51.81 [id number] Jerardo Chung MD [facility] ([facility]) [address] [place] [address] [id number] 5 06/12/2023 10:33:26 06/12/2023 14:22:37 [id number] Jerardo Chung MD [facility] ([facility]) [address] [place] [address] [id number] 5 06/15/2023 10:27:11 06/15/2023 15:14:37 Impacted cerumen in left ear 9078844420 227980 H61.22 at his baseline state walking well today. happy and alertvalve sounds unchangdct abrrrleft tm impacted with soft cerumenrem gabrielle without difficulty he toleratedt his well [id number] Jerardo Chung MD [facility] ([facility]) [address] [place] [address] [id number] 5 06/28/2023 09:48:27 06/28/2023 10:55:21 Prolapsed lumbar intervertebral disc 930186755 M51.26 Hypertrophy of nail 3065 4002 L60.2 Angina pectoris 23594001 0 I20.89 [id number] Jerardo Chung MD [facility] ([facility]) [address] [place] [address] [id number] 5 07/12/2023 11:18:58 07/12/2023 12:45:21 Fall in home 30710372 Y92.009 discontinu e alleve, please. Loss of appetite 6929341 6 R63.0 Lightheadedness 27278161 8 R42 Pain of ri ght lower leg 3525377722 05621 M79.661 Low back pain 400586832 M54.51 [id number] Jerardo Chung MD [facility] ([facility]) [address] [place] [address] [id number] 5 07/19/2023 10:53:38 07/19/2023 12:03:26 Near syncope 069367928 R55 recent carotid artery u/s no significan t stenosis. his pressures are back up after stopping his isosorbide . he has no chest discomfort or pain since stopping isosorbide . Loss of appetite 0314173 6 R63.0 his chronic pain is doing reasonably well since switching to hydrocodon e.his pain is now the l3- l4 distributi ond/c of naproxen has caused his stomach to feel better and appetite to improvehe is eating well now. no abdominal painnormal bmsno bloody stoolno black or tarry stool Severe aor tic valve stenosis 573074533 I35.0 [id number] Jerardo Chung MD [facility] ([facility]) [address] [place] [address] [id number] 5 08/02/2023 11:00:37 08/02/2023 12:35:40 Chronic diastolic heart failure 277337978 I50.32 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 8043728520 28933 M06.09 stable a Peripheral arterial occlusive disease 994013333 I73.9 left ankle 1 cm superficia l ulcer Low back pain 770442048 M54.51 [id number] NICOLE CHUNG PA-C [facility] ([facility]) [address] [place] [address] [id number] 5 08/30/2023 14:39:54 10/10/2023 12:44:58 Congestive heart failure 47939857 I50.9 ef 35-40incre ase entresto 49/51 to 1 bidmonitor BPs and edema. Atrial fibrillation 4943 6004 I48.91 ?tick ?pmr doxy, prednisone taper off d/c midodrine Acute kidney injury 1466 9001 N17.9 improving and back to baseline [id number] NICOLE CHUNG PA-C [facility] ([facility]) [address] [place] [address] [id number] 5 09/06/2023 12:39:56 09/19/2023 18:45:36 Congestive heart failure 70437117 I50.9 d/c home on 09-08-23 no home health follow up with Dr Chung in 2 weeks. [id number] Jerardo Chung MD [facility] ([facility]) [address] [place] [address] [id number] 5 09/20/2023 12:37:34 09/20/2023 14:58:51 Chronic systolic heart failure 033095598 I50.22 Atrial fibrillation 4943 6004 I48.91 Essential hypertension 85718077 I10 History of peripheral arterial occlusive disease 397717110 I73.9 Gout 97017649 M10.9 [id number] Jerardo Chung MD [facility] ([facility]) [address] [place] [address] [phone] 5 09/28/2023 14:12:21 09/29/2023 10:49:25 Atrial fibrillation 39822131 I48.91 Aortic alex nosis, non-rheumatic 769599421 I35.0 Chronic sy stolic heart failure 154845954 I50.22 Acute on c hronic diastolic heart failure 541514174 I50.33 [id number] RADHA MENDOZA APRN [facility] ([facility]) [address] [place] [address] [phone] 5 09/30/2023 10:42:40 09/30/2023 15:36:55 Cellulitis of left lower limb 8380303140 4790849 L03.116 Bilateral lower leg edema 997423840 R60.0 [id number] Jerardo Chung MD [facility] ([facility]) [address] [place] [address] [phone] 5 10/02/2023 14:24:33 10/02/2023 16:01:57 Congestive heart failure 23019395 I50.9 the feet are not weepinghis edema is unchanged will add aldactone watching bp carefully and repeat his bmp next week and recheckhe is not orthopneic nor short of breath. [id number] Jerardo Chung MD [facility] ([facility]) [address] [place] [address] [phone] 5 10/04/2023 09:42:40 10/04/2023 10:53:28 Congestive heart failure 08174093 I50.9 anticipate increasing to furosemide 60 mg q am and 40 mg q afternoon [id number] Jerardo Chung MD [facility] ([facility]) [address] [place] [address] [phone] 5 10/11/2023 09:52:32 10/11/2023 11:23:53 Acute on chronic diastolic heart failure 136322989 I50.33 Congestive heart failure 94002694 I50.9 anticipate increasing to furosemide 60 mg q am and 40 mg q afternoon he gets a strong effect for 6 hours after each dose then almost none. [id number] Jerardo Chung MD [facility] ([facility]) [address] [place] [address] [phone] 5 10/16/2023 11:30:47 10/17/2023 11:04:29 Essential hypertension 70433313 I10 [id number] Jerardo Chung MD [facility] ([facility]) [address] [place] [address] [phone] 5 10/18/2023 10:12:13 10/18/2023 12:55:45 [id number] Jerardo Chung MD [facility] ([facility]) [address] [place] [address] [phone] 5 10/30/2023 10:25:06 10/31/2023 10:45:05 Essential hypertension 74104451 I10 [id number] Jerardo Chung MD [facility] ([facility]) [address] [place] [address] [phone] 5 11/01/2023 10:32:00 11/01/2023 11:56:34 Acute on chronic diastolic heart failure 650108666 I50.33 Body mass index 25-29 - overweight 058139790 Z68.28 [id number] Jerardo Chung MD [facility] ([facility]) [address] [place] [address] [id number] 5 11/13/2023 10:04:47 11/14/2023 10:16:40 Congestive heart failure 03157513 I50.9 anticipate increasing to furosemide 60 mg q am and 40 mg q afternoon he gets a strong effect for 6 hours after each dose then almost none. [id number] Jerardo Chung MD [facility] ([facility]) [address] [place] [address] [phone] 5 11/15/2023 10:13:17 11/15/2023 13:46:01 [id number] Jerardo Chung MD [facility] ([facility]) [address] [place] [address] [phone] 5 11/30/2023 10:37:15 11/30/2023 17:34:30 Administration of influenza vaccine 50618867 Z23 [id number] Jerardo Chung MD [facility] ([facility]) [address] [place] [address] [phone] 5 12/13/2023 10:51:14 12/14/2023 10:17:25 Essential hypertension 84263186 I[address] imulating hormone level above reference range 451676024 R94.6 [id number] Jerardo Chung MD [facility] ([facility]) [address] [place] [address] [phone] 5 12/15/2023 10:14:33 12/15/2023 14:16:11 Congestive heart failure 49866638 I50.9 anticipate increasing to furosemide 60 mg q am and 40 mg q afternoon he gets a strong effect for 6 hours after each dose then almost none. Carotid ar mario stenosis 66315468 I65.29 Chronic sy stolic heart failure 612052658 I50.22 Chronic di astolic heart failure 258218379 I50.32 History of peripheral arterial occlusive disease 011823513 I73.9 [id number] Jerardo Chung MD [facility] ([facility]) [address] [place] [address] [phone] 5 01/17/2024 11:01:54 01/18/2024 13:04:01 Dyspnea 479361702 R06.02 [id number] Jerardo Chung MD [facility] ([facility]) [address] [place] [address] [phone] 5 01/23/2024 09:33:09 01/23/2024 11:11:55 Infection of sebaceous cyst 200170106 L72.3 [id number] Jerardo Chung MD [facility] ([facility]) [address] [place] [address] [phone] 5 02/14/2024 10:47:55 02/14/2024 12:57:44 Congestive heart failure 77306059 I50.9 Atrial fibrillation 4943 6004 I48.91 will resume metoprolol to try to increase cardiac output but may need ant-arrhyt hmic therapy. Essential hypertension 89086374 I10 Rheumatoid arthritis 698 67975 M06.09 Peripheral vascular disease 287019189 I73.9 Gout 14032332 M10.9 d/c uloric will recheck uric acid off of it. Acute on c hronic diastolic heart failure 310201784 I50.33 [id number] Jerardo Chung MD [facility] ([facility]) [address] [place] [address] [phone] 5 02/21/2024 10:20:45 02/22/2024 11:48:27 Essential hypertension 75208021 I10 Anemia 485870508 D64.[address] imulating hormone level above reference range 017660523 R94.6 Gout 80565688 M10.9 d/c uloric will recheck uric acid off of it. [id number] Jerardo Chung MD [facility] ([facility]) [address] [place] [address] [phone] 5 02/21/2024 10:36:07 02/21/2024 13:58:28 Gout 48613516 M10.9 uloric d/cno sign of gouturic acid is pendinghe is eating well Chronic ki dney disease stage 3A 777150932 N18.31 Atrial fibrillation 4943 6004 I48.91 we resumed metoprolol but HR remains high and bp is too low to increase it. he needs rhythm control. will contact his cardiologi st today and develop a plan. [id number] Jerardo Chung MD [facility] ([facility]) [address] [place] [address] [phone] 5 03/13/2024 10:34:47 03/14/2024 11:23:07 Cardiomyopathy 29574138 I42.8 [id number] Jerardo Chung MD [facility] ([facility]) [address] [place] [address] [phone] 5 04/01/2024 10:44:24 04/02/2024 12:56:31 Cardiomyopathy 80352876 I42.8 [id number] Jerardo Chung MD [facility] ([facility]) [address] [place] [address] [phone] 5 05/02/2024 09:01:41 05/02/2024 15:35:31 Near syncope 126948319 R55 his pressures are back up after stopping his isosorbide . he has no chest discomfort or pain since stopping isosorbide . CTA this year showed no restricted blood flow 3OZA CT/CT angio headneck* 30960/7016 8IMPRESSIO N:1. No evidence intracrani al hemorrhage or mass effect. Ventricula r system and basilar cisterns are patent. Intracrani al vascular calcificat ion.2. Less than 50% ICA stenosis bilaterall y. Retrophary ngeal course of both cervical ICAs.3. RIGHT dominant vertebral artery.4. No proximal flow-limit ing intracrani al stenosis.5 . Mild intracrani al atheromato us disease. Chronic di astolic heart failure 251454340 I50.32 Fatigue 44854959 R53.83 Gout 89189192 M10.9 uloric d/cno sign of gouturic acid is pendinghe is eating well [id number] Jerardo Chung MD [facility] ([facility]) [address] [place] [address] [id number] 5 05/13/2024 10:11:59 05/13/2024 13:12:18 Age related macular degeneration 709050050 H35.3221 updating his active dx Chronic ki dney disease stage 3A 822281352 N18.31 updating active dx list Near syncope 579426046 R 55 resolved Chronic di astolic heart failure 226000304 I50.32 stable with decreased lasix on maximal medical therapy Fatigue 70548975 R53.83 Gout 64833721 M10.9 uric acid is elevated but had problems with uloric in the past. [id number] Jerardo Chung MD [facility] ([facility]) [address] [place] [address] [phone] 5 05/21/2024 10:43:21 05/21/2024 12:20:40 Blood in urine 70051666 R31.9 [id number] Jerardo Chung MD [facility] ([facility]) [address] [place] [address] [phone] 5 07/05/2024 10:01:48 07/05/2024 13:18:41 Chronic kidney disease stage 3B 557081181 N18.32 9929944343 Low back pain 210217038 M54.51 the patient is home bound due to his cardiac and musculoske latal issues. he requires extreme effort to leave the home and only leaves for thing she must absolutely do like medical appointmen ts only essentiall y. he requires physical therapy for his dereased mioblity and chornic back pain to help him recover and improvign his functionin g. he is a good candidate for therapy. Unsteady when walking 22 081049 R26.81 4257290765 [id number] Jerardo Chung MD [facility] ([facility]) [address] [place] [address] [phone] 5 08/07/2024 10:42:19 08/08/2024 13:27:20 Orthostatic hypotension 47574104 I95.1 3436 Chronic low back pain 27 4307880 M54.42 M54.41 G89.29 64348422 the patient is home bound due to his cardiac and musculoske latal issues, orthostati c hypotensio n, vertigo, and severe congestive heart failure. he requires extreme effort to leave the home and only leaves for thing she must absolutely do like medical appointmen ts only essentiall y. he requires physical therapy for his mobility and chronic back pain, vertigo, difficulty walking to help him recover and improving his functionin g. he is a good candidate for therapy. 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 We will start antibiotic s. Pt will increase oral fluids. Return to office with no improvemen t or any problems. Go to ER with severe worsening or severe problems.W e will obtain urine culture [id number] Jerardo Chung MD [facility] ([facility]) [address] [place], [place] [phone] 5 09/26/2024 10:32:52 09/30/2024 12:03:09 Maksim hematuria 856140123 R31.0 392395 on blood thinners. he is able to void not clotting. previous culture neg. repeat culture will be sent. was nitrite pos. micro today. Prostatitis 4491216 N41. 9 59109 [id number] RADHA MENDOZA APRN [facility] ([facility]) [address] [place] [address] 5 09/29/2024 14:01:51 10/01/2024 08:13:50 History of ear disorder 228765538 Z86.69 74812645 [id number] Jerardo Chung MD [facility] ([facility]) [address] [place] [address] 5 09/30/2024 10:17:22 10/01/2024 10:43:31 Bleeding of ear canal 965180909 H92.20 9581734757 [id number] Jerardo Chung MD [facility] ([facility]) [address] [place], [place] [phone] 5 10/15/2024 10:36:55 10/16/2024 13:18:17 [id number] Jerardo Chung MD [facility] ([facility]) [address] [place] [address] 5 10/16/2024 10:18:29 11/06/2024 10:55:07 Acquired hypothyroidism 260891163 E03.9 55361 Acute urin arelis tract infection 782946746 N39.0 854686 [id number] Jerardo Chung MD [facility] ([facility]) [address] [place], [place] [phone] 5 10/21/2024 12:18:56 10/21/2024 13:52:57 Mass of urinary bladder 697622010 N32.89 545732 suspicious for posterior bladder mass.this patient is more likely than not going to want to follow conservati ve treatment. however, without cystoscopy it is very hard to guide him. he is not currently bleeding. he requires anticoagul ation for cardiac treatment. will continue that for now. 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 Congestive heart failure 75636570 I50.9 Maksim hematuria 03691230 5 R31.0 675505 resolved. his cystoscope is in the works but i will need to discuss the cindy krusei in his bladder. Health Concerns Section Related Observation LastModified by Organization Detai ls LastModified Time None Recorded Concern Status LastModified by Organization Details LastModified Time None Recorded Advance Directives Directive None Recorded Payers Insurance Date Sequence Insurance Name Policy Number Policy Dvaies Covered Member ID Davies Member ID Guarantor Name 09/12/2024 1 [employer] (MEDICARE REPLACEMENT/A DVANTAGE - PPO) Dayna Salgado Jr [id number] Dayna Salgado 09/12/2024 1 [id number] - [place]) [id number] Dayna Salgado [id number] Dayna Salgado 11/16/2024 1 [employer] (MEDICARE REPLACEMENT/A DVANTAGE - PPO) Dayna Salgado Jr [id number] Dayna Salgado Notes Date Note Type Note Provider Name and Address Organization Details Recorded Time 10/16/2024 text/html Lower Urinary Tr act Symptoms (LUTS)Reported by PatientHPIFor associated symptoms, patient reportsempties poorly,urgency, andfrequencybut reportsno feverandno vomiting(patient states that he doesn't have pain, but it is uncomfortable when urinating at the end of his penis.). For quality, patient reportspainless. For severity, patient reportsimproving. For duration, patient reportsacuteand3-4 weeks. HypothyroidReported by PatientHPIFor associated symptoms, patient reportsweakness,lighth eadedness, andfatiguebut reportsno cold intolerance,no weight gain, andno edema. For reason for visit, patient reportsstart medication. For duration, patient reportspresent <1 month. For treatment, patient reportslast tsh level: 41.Pt was started on levothyroxine at the [facility] as noted in the HPI Patient went to the ER for dizziness. He was prescribed cephalexin for a UTI and levothyroxine for an elevated TSH. Jerardo Chung MD [address] [place] [address], [phone], [facility] 11/05/2024 13:14:25 10/21/2024 text/html Pt is here today to go over his ultrasound results. Note from u/s: unfortunately there was concern of a bladder mass. He would also like to have his ear examined. Jerardo Chung MD [address] [place] [address], [phone], [facility] 10/21/2024 12:49:35 11/19/2024 text/html Care Management - Congestive Heart Failure (CHF)Reported by PatientHPIFor associated symptoms, patient reportsshortness of breath (patient states there is nothing specific that causes him to have the dyspnea)but reportsno chest painandno chest tightness(edema to the abdomen, cough).dry weight is up 2-3 lbs here and at home. he was given iv diuretics and responded well ROS as noted in the [facility] hospital f/u: Pt reports that he left AMA because they weren't giving him his medications and he wasn't improving. They had him on oxygen in the hospital, but when he left, was not prescribed any oxygen. Patient feels that he needs it at home, not all of the time. his urine flow is at baseline. no dysuria. hematuria resolved. Jerardo Chung MD [address] [place] [address], [phone], [facility] 11/19/2024 10:04:37
--- OUTSIDE RECORDS SUMMARY | 2024-11-20 16:27 | XMS_ITS | Clinical Summary ---
Author Organization [facility] Address [address] [place] [address] Care Team Providers Care Unionmelt Operator Name Role Phone Destin Chung MD Primary Care Provider [phone] Allergies Active Allergy Reactions Criticality Noted Date [...] tablet Take 120 mg by mouth daily mechanist. Active furosemide (LASIX) 40 mg tablet Take [...] Take 20 mEq by mouth daily. 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 Gender Identity Not on file Sexual [...] (#1) 2024 Medical Devices Implanted Type Area Sales Consultant Device Identifier Shelf Expiration Date Model / Serial / Lot Closure Perclose Proglide [id number] - [id number] Implanted:Qty: 1 on 11/26/2019 at [facility] Closure Device Right: Groin HELLER- VASC DEVICE 08/05/2021 [id number] / [id number] / [id number] [employer] Architect 6-7fr [id number] - [id number] Implanted:Qty: 1 on 11/26/2019 at [facility] Closure Device Left: Groin ACCESS CLOSURE 10/06/2021 [id number] / / [id number] Valve Sapien3 Transcath 29mm [id number] - [id number] Implanted:Qty: 1 on 11/26/2019 by Yan Salmeron MD at [facility] Tissue N/A: Aorta [employer] [id number] / [id number] / Explanted Type Area Sales Consultant Device Identifier Shelf Expiration Date Model / Serial / Lot Cath Pace Bipolar 5fr [id number] - [id number] Explanted:Qty: 1 on 11/26/2019 at [facility] Catheter Left: Chest CR BARD- MED DIV 07/06/2021 [id number] / / [id number] Insurance [id number] [place] [id number] [place] [address] Advance Directives For more information, please contact: [phone] * Full Code (Latest Code Status on File) Date Activated Date Inactivated Comments 11/26/2019 8:04 AM 11/27/2019 5:26 PM Care Teams Unionmelt Operator Relationship Specialty Start Date End Date Destin Chung MD [address] [phone] PCP - General Family Practice 01/26/16
[2024-11-20 16:52] VITALS: BP 118/73; PULSE 82; RESP 18; TEMP 36.6; O2SAT 93
[2024-11-20 17:26] VITALS: BP 118/73; PULSE 82; RESP 18; TEMP 36.6; O2SAT 93
--- NOTE | 2024-11-20 17:31 | PM.HP ---
Providers/Chief Complaint Admitting Physician: Rafael Vale MD Primary Care Provider: Destin Chung MD Chief Complaint: IV antifungal antibiotics History of Present Illness Thong Salgado Jr is a 84 year old male with past medical history of atrial fibrillation chronic Eliquis, CAD post CABG, post TAVR, thoracic aortic aneurysm, hyperlipidemia, congestive heart failure with EF 35%, outlet obstruction for which she is following up as an outpatient with urologist with possible scheduling of prostatectomy as an outpatient for thyroidism, recurrent UTI for which she has been on multiple antibiotics recently within last 1 month who was in the hospital from 11/15 to 11/17 when he was treated for possible congestive heart failure and UTI. His urine culture from previous admission came back positive for fungus and blood culture 1 out of 4 bottles from 11/15 is growing budding yeast hence he was called back to the hospital. Patient states he has been feeling weak, tired, lethargic for last 2 to 3 weeks. Denies any nausea, vomiting, diarrhea. Review of Systems General: Reports: 10 or more systems reviewed and unremarkable except in HPI and below Const: Denies: fever(s), chills, body aches, change in appetite, change in weight, malaise, night sweats, diaphoresis, change in sleep pattern, daytime sleepiness or snoring Eyes: Denies: change in vision, blurry vision, photophobia, eye discomfort or eye discharge ENMT: Denies: throat pain, enlarged tonsils, hoarseness, mouth pain, oral sores, dry mouth, tinnitus, nasal congestion or post nasal drip Card: Denies: chest pain, palpitations, irregular heart rhythm, edema, swelling of feet/ankles, lightheadedness, syncope, pre-syncope, dyspnea on exertion, orthopnea, leg pain with exertion or acrocyanosis Resp: Denies: dyspnea, productive cough, non-productive cough, wheezing, stridor, pain on inspiration, change in phlegm color, hemoptysis or chest congestion GI: Denies: abdominal pain, nausea, vomiting, hematemesis, coffee ground emesis, dysphagia, heartburn, diarrhea, constipation, bloating, GI cramping, change in bowel habits, pain on defecation, hematochezia or melena : Denies: flank pain, difficulty urinating, dysuria, urinary frequency, urinary urgency, urinary hesitancy, urinary dribbling, difficulty starting urination, change in urine stream, nocturia or hematuria Musc: Denies: neck pain, back pain, extremity pain, joint pain, joint swelling, joint redness, joint stiffness or limited range of motion Neuro: Denies: headache(s), numbness in extremities, weakness in extremities, sensory changes, lack of coordination, difficulty walking, frequent falls, dizziness, vertigo, confusion, Slurred speech present, difficulty communicating thoughts or seizure-like activity Psych: Denies: anxiety, depression, mood swings, panic attacks, hopelessness or irritability Endo: Denies: polyuria, polydipsia, tired all the time, cold intolerance, excessive sweating, flushing or heat intolerance David/Lymph: Denies: easy bruising or easy bleeding All/Imm: Denies: tongue swelling, facial swelling or acute wheezing Medications/Allergies Home Medications ?Medication ?Instructions ?Recorded ?Confirmed ?Last Taken ?Type ascorbic acid (vitamin C) 500 mg 500 mg PO DAILY 02/13/19 11/15/24 11/14/24 History tablet (Vitamin C) ferrous gluconate 324 mg (37.5 mg 324 mg PO DAILY 02/13/19 11/15/24 11/14/24 History iron) tablet glucosamine HCl 1,500 mg tablet 1,500 mg PO DAILY 06/17/19 11/15/24 11/14/24 History sour kumar extract 1,000 mg 1,000 mg PO DAILY 06/16/20 11/15/24 11/14/24 History capsule (Tart Kumar Extract) clopidogrel 75 mg tablet (Plavix) 75 mg PO DAILY #90 tabs 01/18/23 11/15/24 11/14/24 Rx magnesium chloride 64 mg 64 mg PO BID #180 tabs 01/18/23 11/15/24 11/14/24 Rx (magnesium chloride) tablet,delayed release (Mag 64) multivit,Ca,vxbp-LS-xricdpxi-lutn 1 tab PO DAILY 06/21/23 11/15/24 11/14/24 History 18 mg-500 mcg-300 mcg-250 mcg tablet omega-3 fatty acids 1,000 mg 1,000 mg PO BID 06/21/23 11/15/24 11/14/24 History capsule vitamin B complex 1 tab PO DAILY 06/21/23 11/15/2411/14/25 History potassium citrate 99 mg capsule 99 mg PO BID 08/18/23 11/15/24 11/14/24 History Eliquis 5 mg tablet (apixaban) 5 mg PO BID #180 tabs 01/11/24 11/15/24 11/14/24 Rx metoprolol succinate 25 mg 12.5 mg PO DAILY 02/29/24 11/15/24 11/14/24 History tablet,extended release 24 hr amiodarone 200 mg tablet 200 mg PO DAILY #180 tabs 04/03/24 11/15/24 11/14/24 Rx dapagliflozin propanediol 10 mg 10 mg PO DAILY #90 tabs 06/05/24 11/15/24 11/14/24 Rx tablet (Farxiga) colchicine 0.6 mg tablet 0.6 mg PO DAILY #90 tabs 08/26/24 11/15/24 11/14/24 Rx febuxostat 40 mg tablet 80 mg (2 x 40 mg) PO DAILY #180 08/26/24 11/15/24 Unknown Rx tabs sulfasalazine 500 mg tablet 1,000 mg (2 x 500 mg) PO BID #360 08/26/24 11/15/24 11/14/24 Rx tabs furosemide 40 mg tablet See Rx Instructions .Route .COMPLEX 10/10/24 11/15/24 11/14/24 History rosuvastatin 20 mg tablet 20 mg PO BEDTIME 10/10/24 11/15/24 11/14/24 History sacubitril 49 mg-valsartan 51 mg 1 tab PO BID 10/10/24 11/15/24 11/14/24 History tablet (Entresto) spironolactone 25 mg tablet 12.5 mg PO QAM 11/06/24 11/15/24 11/14/24 History fluconazole 100 mg tablet 200 mg (2 x 100 mg) PO DAILY #12 11/17/24 Unknown Rx tabs levothyroxine 50 mcg tablet 75 mcg (1.5 x 50 mcg) PO QAM #30 11/17/24 11/15/24 11/14/24 Rx tabs Allergies Allergy/AdvReac Type Severity Reaction Status Date / Time ciprofloxacin Allergy Unknown unknown Verified 08/26/24 10:52 Penicillins Allergy Unknown unknown Verified 08/26/24 10:52 simvastatin Allergy unknown Verified 08/26/24 10:52 allopurinol AdvReac itching Verified 08/26/24 10:52 lisinopril AdvReac cough Verified 08/26/24 10:52 PFSH Acute PFSH: Medical History (Updated 11/20/24 @ 18:21 by Rafael Vale MD) ESBL (extended spectrum beta-lactamase) producing bacteria infection History of nonmelanoma skin cancer CVA (cerebral vascular accident) CKD (chronic kidney disease) stage 3, GFR 30-59 ml/min Nonsustained ventricular tachycardia Pulmonary valve regurgitation Hypothyroidism Atrial fibrillation Lumbar stenosis with neurogenic claudication Degenerative disc disease Vertebral artery stenosis Aortic aneurysm Weakness Weakness of both lower extremities Lactic acidosis Fever of unknown origin Acute urinary retention Leg weakness Gout COVID-19 vaccine administered Macular degeneration Seropositive rheumatoid arthritis of multiple sites Immunization counseling High risk medication use Osteoarthritis of knees, bilateral Inflammatory arthritis Gout, arthritis Edema, peripheral Coronary arteriosclerosis after coronary artery bypass grafting CABG x2 (OLSON to LAD and SVG to OM, 05/08/2008) Cardiomyopathy LVEF has decreased from 45% to 35% by echocardiogram. Cataract Cardiac arrhythmia Pacemaker Dual-chamber Mixed hyperlipidemia last lipid panel 2019: Cholesterol 93, triglycerides 78, LDL 55. Thoracic aneurysm without mention of rupture Ascending aortic aneurysm 4.4cm by CT 07/2017 Essential hypertension Surgical History (Updated 11/18/24 @ 00:00 by RHONDA Bobo) History of surgical removal of ganglion cyst Hx of cataract surgery S/p TAVR (transcatheter aortic valve replacement), bioprosthetic Hx of CABG Hx of appendectomy H/O foot surgery Family History Mother Dementia Other CAD (coronary artery disease) Diabetes Hyperlipidemia Hypertension Stroke Denies family history of Clotting disorder Psychiatric illness Chronic kidney disease (CKD) Suicide Anesthesia complication Bleeding disorder Family history of premature coronary artery disease Lung disease Cancer Social History Smoking and tobacco/nicotine status: never used tobacco/nicotine Alcohol intake: never Substance/Drug Use: never Household members: significant other Housing: House Vitals/I&O/Wt Last Vital Signs Temp 97.8 F 11/20/24 16:52 Pulse 82 11/20/24 16:52 Resp 18 11/20/24 16:52 BP 118/73 11/20/24 16:52 Pulse Ox 93 11/20/24 16:52 O2 Del Method Room Air 11/20/24 16:52 Weight last 48 hrs Weight 97.296 kg Physical Exam Narrative: General: No acute distress, AO x3, pleasant HEENT: PERRLA, pupils bilaterally equal and reactive Chest: Normal vesicular breath sounds, no added sounds, equal good air entry bilaterally CVS: S1-S2 regular, no murmurs, no tachycardia, no gallops, no rubs Abdomen: Soft, nontender, no organomegaly, bowel sounds present Neuro: No focal deficits, no facial deformity, AO x3, power 5/5 in all limbs A&P Assessment and plan 1. Fungemia: Blood culture from 11/15 1 out of 4 bottles positive for budding yeast. No speciation identification available for now. Urine culture also from 11/15 positive for yeast. Empirically start on IV micafungin for now. Stat blood culture. Will most likely repeat blood culture in AM. Will consult infectious disease for further recommendations. Patient has a history of TAVR and possible pacemaker. He will most likely need further evaluation and workup to rule out endocarditis. 2. Systolic and diastolic CHF, chronic: 3. Cardiomyopathy: 4. S/p TAVR (transcatheter aortic valve replacement), bioprosthetic: 5. Coronary arteriosclerosis after coronary artery bypass graftin. Essential hypertension: 7. Bladder outlet obstruction: 8. Keiry UTI: Plan: History of systolic and diastolic congestive heart failure due to cardiomyopathy: Last echocardiogram from 08/30 shows EF 35% with moderately increased LA size, moderate MR. Currently patient is euvolemic. Hold off on IV fluids and diuretics for now. Strict input output charting, daily weights. Hypertension: Goal blood pressure less than 140/90 mmHg. Patient takes Entresto, metoprolol at home. For now continue with metoprolol. Hold off on Entresto for now. CKD: Creatinine more recently since August 2023 has been elevated with baseline seem to be around 1.5-1.7. Currently 1.6. Continue to monitor BMP daily. Bladder outlet obstruction: Follows up with urology as an outpatient. Bladder scan. If needed will plan for Rutherford catheterization. Will discuss with the patient and possibly start on Flomax. Atrial fibrillation: Continue with home dose of metoprolol and amiodarone. Switch to Lovenox 1 mg/kg body weight daily for now. Hold off on Eliquis. History of CAD: No active chest pain. Check A1c, lipid panel. Continue with home dose of Plavix, statin. Full code. Confirmed with patient. His friend will be DPOA. Will request case management for DPOA paperwork in AM. Cardiac diet. Protonix for PUD prophylaxis Full dose Lovenox will be sufficient for DVT prophylaxis. Check CBC, CMP, lipid panel, A1c, iron panel, free T3, free T4, urinalysis, chest x-ray, EKG for QTc, trend procalcitonin. PDMP PDMP Reviewed: Not Reviewed Attestations Medical Necessity Statement*: Patient requires admission for more than 2 midnights for management of fungemia with fungal UTI in setting of bladder outlet obstruction, congestive heart failure Diagnoses Fungemia B49 Systolic and diastolic CHF, chronic I50.42 Cardiomyopathy I42.9 S/p TAVR (transcatheter aortic valve replacement), bioprosthetic Z95.3 Coronary arteriosclerosis after coronary artery bypass grafting I25.810 Essential hypertension I10 Bladder outlet obstruction N32.0 Keiry UTI B37.49
--- NOTE | 2024-11-20 17:32 | XRR_ITS ---
PROCEDURE INFORMATION: Exam: XR Chest Exam date and time: 11/20/2024 6:53 PM Age: 84 years old Clinical indication: Cardiovascular condition or disease; Congestive heart failure (chf); Cause unknown; Type unknown TECHNIQUE: Imaging protocol: Radiologic exam of the chest. Views: 1 view. COMPARISON: CR XR chest 1V portable [id number] 11/15/2024 10:13 AM FINDINGS: Lungs: Bibasilar atelectasis. Pleural spaces: Unremarkable. No pleural effusion. No pneumothorax. Heart/Mediastinum: Cardiomegaly. Mild central pulmonary vasculature congestive changes. Diaphragm: Eventration of the left hemidiaphragm Bones/joints: Unremarkable. XR/XR chest 1V portable [id number] IMPRESSION: As above.
--- NOTE | 2024-11-20 17:51 | ECG_ITS ---
[facility] Pat Name: Thong Salgado Department: Room: 272 Gender: Male Mental Health Aide: : 1940 Requested By: Rafael Vale Order Number: [id number] Mcconnell MD: Carlos Young M.D. Measurements Intervals [place] Rate: 81 P: 0 [place]: 0 QRS: -84 QRSD: 210 T: 90 QT: 490 QTc: 569 Interpretive Statements ELECTRONIC VENTRICULAR PACEMAKER VENTRICULAR PACED RHYTHM INTERPRETATION BASED ON A DEFAULT AGE OF 40 YEARS Compared to ECG 11/15/2024 16:18:27 No significant changes Electronically Signed On 11-20-2024 21:02:05 CDT by Carlos Young M.D. [email or web address]
[2024-11-20] MEDS: pantoprazole 40 mg SDV IVP (18:04)
[2024-11-20] MEDS: micafungin 100 MG in sodium chloride 0.9% (plus) 100 ML IV (18:05)
[2024-11-20 18:40] VITALS: O2SAT 93
[2024-11-20 19:05] LABS: Lactic Sepsis W/Reflex 1.5 mmol/L (0.5-2.2)
[2024-11-20 19:09] LABS: Glucose Urine UA 2+ (Normal); Nitrate Urine Negative (Negative); Specific Gravity, Urine 1.019 (1.005-1.030)
[2024-11-20 19:14] LABS: Add Urine Microscopic? YES
[2024-11-20 19:19] LABS: Estmated Average Glucose 151; Hemoglobin A1C 6.9 % (4.0-6.0)
[2024-11-20 19:21] LABS: Procalcitonin 0.13 ng/mL (0-0.5); Vitamin B12 848 pg/mL (232-1245)
[2024-11-20 19:32] LABS: Iron 36 ug/dL (59-158); Total Iron Binding Capacity 241 mcg/dl; Unsaturated Iron Binding 205 ug/dL (112-347)
[2024-11-20 19:40] VITALS: BP 109/70; PULSE 79; RESP 15; TEMP 36.5; O2SAT 97
[2024-11-20 19:46] LABS: UA Slide Review UA Slide Review Perf
[2024-11-20 20:00] VITALS: BP 109/70; PULSE 79; RESP 15; TEMP 36.5; O2SAT 97
[2024-11-20 20:56] LABS: Free T4 Free Thyroxine 0.91 ng/dL (0.82-1.77)
[2024-11-20 22:00] VITALS: PULSE 80
[2024-11-20] MEDS: MELATONIN 3 MG TABLET 9 MG PO (23:29)
[2024-11-21] VITALS (9 sets, daily range): BP systolic 97–139; BP diastolic 58–80; PULSE 80–88; RESP 15–18; TEMP 36.4–36.8; O2SAT 90–96
[2024-11-21] MEDS: metoprolol succinate ER (24 HR) 25 mg Tablet 12.5 MG PO (04:29)
[2024-11-21 05:35] LABS: Hematocrit 32.7 % (37-53); Hemoglobin 10.70 g/dL (11.27-16.99); Mean Corpuscular HGB Conc 32.7 g/dL (30-55); Mean Corpuscular Hemoglobin 31.8 pg (27-33); Mean Corpuscular Volume 97.3 fl (82-101); Nucleated Red Blood Cells % 0 %; Platelet Count 254 10^3/cmm (157-399); Red Blood Count 3.36 10^6/uL (3.85-5.65); White Blood Count 6.57 10^3/uL (3.29-11.43)
[2024-11-21 06:07] LABS: Procalcitonin 0.10 ng/mL (0-0.5)
[2024-11-21 06:09] LABS: Alanine Aminotransferase 35 U/L (0-41); Albumin Level 3.9 g/dL (3.5-5.2); Alkaline Phosphatase 40 U/L (40-130); Anion Gap 18.9 (5-19); Aspartate Amino Transferase 28 U/L (0-40); Blood Urea Nitrogen 23 mg/dL (8-23); Calcium 9.0 mg/dL (8.5-10.5); Carbon Dioxide 24 mmol/L (22-29); Chloride 103 mmol/L (98-107); Cholesterol 96 mg/dL (0-200); Creatinine Clr Calc Pharmacy 49.5330; Globulin 2.9 g/dL (1.3-4.6); Glucose 127 mg/dL (65-115); HDL Cholesterol 23 mg/dL (60-100); Magnesium 2.5 mg/dL (1.7-2.3); Osmolality Calculated 299 mOsm/kg (285-295); Potassium 3.9 mmol/L (3.5-5.1); Sodium 142 mmol/L (136-145); Total Protein 6.8 g/dL (6.6-8.7); Triglycerides 147 mg/dL (0-150)
--- OUTSIDE RECORDS SUMMARY | 2024-11-21 06:11 | XMS_ITS | Patient Health Record ---
Author Organization [facility] Address [address] [place] [address] Care Team Providers Care Security Professional Name Role Phone Lyle Headley Primary Care Provider Unavailabl e Migration, Provider Unavailable Unavailable Reason For Referral No Information Encounters Encounter Location Date Provider Diagnosis Migrated_Facility 0 0 12/02/2023 Provider Migration Migrated_Facility 0 0 12/03/2023 Provider Migration Plan Of Treatment No Information
--- OUTSIDE RECORDS SUMMARY | 2024-11-21 06:11 | XMS_ITS | Encounter Summary ---
Author Organization [facility] Address [address] [place] [address] Care Team Providers Care Gang Ripsaw Operator Name Role Phone Destin Chung MD Primary Care Provider [phone] Encounter Details Date Type Department Care Team (Late st Contact Info) Description 10/08/2019 Ancillary Orders [facility] External Department [address] [place] [id number] [facility], External Provider [address] [place] [address] Other chest pain Social History Tobacco Use Types Packs/Day Years Used Date Smoking Tobacco: Never Assessed Sex and Gender Information Value Date Recorded Sex Assigned at Not on file 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 us External Provider [facility] ORDERABLES Final Resu lt documented in this encounter Visit Diagnoses Diagnosis Other chest pain Other chest pain documented in this encounter Care Teams Gang Ripsaw Operator Relationship Specialty Start Date End Date Destin Chung MD [address] [facility] [address] [place] [address] PCP - General Family Practice 01/26/16 documented as of this encounter
--- OUTSIDE RECORDS SUMMARY | 2024-11-21 06:11 | XMS_ITS | Encounter Summary ---
Author Organization [facility] Address [address] [place] [address] Care Team Providers Care Solar Electric/Photovoltaic Installer Name Role Phone Destin Chung MD Primary Care Provider [phone] Reason for Referral * Radiology Services (Routine) - Closed Specialty Diagnoses / Procedures Referred By Geoffrey t Referred To Contact Radiology Diagnoses S/P TAVR (transcatheter aortic valve replacement) Procedures ECHO LIMITED WO DOPPLER ECHO COMPLETE Sav Mckay MD [address] [place] [phone] Phone: tel: fax: [facility] Ultrasound [place] [address] [place] [address] Phone: tel: fax: Referral ID Status Reason Start Date Expiration Date Visits Re quested Visits Authorized [id number] Closed 11/27/2019 12/27/2020 1 1 Encounter Details Date Type Department Care Team (Late st Contact Info) Description 12/25/2019 Ancillary Orders [facility] [address] [place] [phone] Sav Mckay MD [address] [place] [phone] S/P TAVR (transcatheter aortic valve replacement) Social History Tobacco Use Types Packs/Day Years Used Date Smoking Tobacco: Never Smokeless Tobacco: Former Sex and Gender Information Value Date Recorded Sex Assigned at Not on file Legal Sex Male 9:36 AM IMPOSER Gender Identity Not on file Sexual Orientation Not on file COVID-19 Exposure Response Date Recorded In the last month, have you been in contact with someone who was confirmed or suspected to have Coronavirus / COVID-19? No / Unsure 12/25/2019 9:52 AM IMPOSER documented as of this encounter Plan of Treatment Not on file documented as of this encounter Results * ECHO LIMITED WO DOPPLER (12/25/2019 10:58 AM IMPOSER) EJECTION FRACTION 30 INTERFACE SYSTEM 12/25/2019 10:1 3 AM IMPOSER Narrative INTERFACE SYSTEM - 12/25/2019 11:43 AM IMPOSER [facility] Radiology Services - Echocardiology [address] [place] [id number] Limited Transthoracic Echocardiography Patient: Naomi Study ECHO LIMITED MINNA Benito ID: Gender: M : 1940 Age: 79 Room: Study 12/25/2019 Pt Outpatient Date: Status: Study 10:13:03 AM CSN #: [id number] Time: Ordering:Sav Mckay Interpreting:Garrett Rivas Policy Cancellation Clerk: Maureen Umana Indications and History: S/P TAVR. [...] Procedure Note Garrett Rivas MD - 12/25/2019 [facility] Radiology Services - Echocardiology [address] [place] [address] Limited Transthoracic Echocardiography Patient: Naomi Study ECHO LIMITED MINNA Benito ID: Gender: M : 1940 Age: 79 Room: Study 12/25/2019 Pt Outpatient Date: Status: Study 10:13:03 AM CSN #: [id number] Time: Ordering:Sav Mckay Interpreting:Garrett Rivas Policy Cancellation Clerk: Maureen Umana Indications and History: S/P TAVR. [...] US ORDERABLES Final Result Performing Organization Address City/[facility] Co de Phone Number INTERFACE SYSTEM Refer to clinic/hospital department documented in this encounter Visit Diagnoses Diagnosis S/P TAVR (transcatheter aortic valve replacement) S/P TAVR (transcatheter aortic valve replacement) documented in this encounter Care Teams Solar Electric/Photovoltaic Installer Relationship Specialty Start Date End Date Destin Chung MD [address] [phone] PCP - General Family Practice 01/26/16 documented as of this encounter
--- OUTSIDE RECORDS SUMMARY | 2024-11-21 06:11 | XMS_ITS | Clinical Summary ---
Author Organization [facility] Address [address] [facility] [address] Harmann: Epic Prelude ADT SKYLA CHERRY [address] Care Team Providers Care Senior Tax Manager Name Role Phone Destin Chung MD Primary Care Provider [phone] Allergies Active Allergy Reactions Criticality Noted Date [...] tablet Take 120 mg by mouth daily engraver tender. 10/09/2019 Active Magnesium Oxide 84.5 mg mag (140 mg) Capsule Take 140 mg by mouth 2 times daily. 10/09/2019 Active vit B cmplx 3-FA-Vit C-Biotin (RENAVITE-RX RX) 1-60-300 mg-mg-mcg Tablet Take 1 Tablet by mouth daily. 10/09/2019 Active multivitamins-mi nerals-lutein (CENTRUM SILVER) Tablet Take 1 Tablet by mouth daily. 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 Gender Identity Not on file Sexual Orientation [...] (#1) 2024 Medical Devices Implanted Type Area Lockstitch Sleeve Maker Device Identifier Shelf Expiration Date Model / Serial / Lot Closure Perclose Proglide [id number] - [id number] Implanted:Qty : 1 on 11/26/2019 Closure Device Right: Groin HELLER- VASC DEVICE 08/05/2021 [id number] / [id number] / [id number] [employer] M[employer] Boxing Promoter 6-7fr [id number] - [id number] Implanted:Qty : 1 on 11/26/2019 Closure Device Left: Groin ACCESS CLOSURE 10/06/2021 [id number] / / [id number] Valve Sapien3 Transcath 29mm [id number] - [id number] Implanted:Qty : 1 on 11/26/2019 by Yan Salmeron MD Tissue N/A: Aorta [employer] [id number] / [id number] / Explanted Type Area Lockstitch Sleeve Maker Device Identifier Shelf Expiration Date Model / Serial / Lot Cath Pace Bipolar 5fr [id number] - [id number] Explanted:Qty : 1 on 11/26/2019 Catheter Left: Chest CR BARD- MED DIV 07/06/2021 [id number] / / [id number] Insurance MEDICARE HMO Care Teams Senior Tax Manager Relationship Specialty Start Date End Date Destin Chung MD [address] [phone] PCP - General Family Practice 01/26/16
--- OUTSIDE RECORDS SUMMARY | 2024-11-21 06:11 | XMS_ITS | Patient Health Record ---
Author Organization [employer], [employer] Address [address] [place] [address] Care Team Providers Care Filling Station Attendant Name Role Phone Destin Chung MD Primary Care Provider STEFAN Laughlin Unavailable [phone] SHELLY RIVERS Unavailable [phone] Allergies Allergen (clinical drug ingredient) Drug/Non Drug Allergy documented on EMR Reaction Allergy Type Onset Date Status ciprofloxacin Ciprofloxacin Unknown Drug Allergy Active Penicillin Unknown Drug Allergy Active Results Component Value Reference Range Notes Urinalysis, Routine Reviewed date:11/14/2024 02:47:01 PM Interpretation: Performing Lab: Notes/Report: Urine-Color yellow Appearance cloudy Glucose 3+ Bilirubin - Ketones - Specific Bowdon 1.015 Occult Blood 1+ pH 6.0 Urine Protein 1+ Urobilinogen,Semi-Qn - Nitrite, Urine - WBC Esterase 2+ Urinalysis, Routine Reviewed date:11/07/2024 09:51:47 AM Interpretation: Performing Lab: Notes/Report: Urine-Color yellow Appearance cloudy Glucose 3+ Bilirubin - Ketones - Specific [place] 1.015 Occult Blood trace pH 6.0 Urine Protein 1+ Urobilinogen,Semi-Qn - Nitrite, Urine -3+ UBASE - Urinary Tract Infect ion (HTRx) Reviewed date:11/08/2024 11:11:49 AM Interpretation: Performing Lab:, [facility] at [address], Phone - [phone], Director - [id number] Notes/Report: CTX-M1 (15), M2 (2), M9 (9), [...] lugdunensis Not Detected 19.961 - 24.689 ppm Reason For Referral No Information Medications Medication [...] W/U Status Risk Notes Problem Gross hematuria (955627385) Gross hematuria (R31.0) Active confirmed Problem Lower urinary tract symptoms due to benign prostatic hypertrophy (08115018287113) Benign prostatic hyperplasia with lower urinary tract symptoms (N40.1) Active confirmed Problem Urinary tract infectious disease (41593121) Complicated UTI (urinary tract infection) (N39.0) Active confirmed Problem Incomplete bladder emptying (307342804) Incomplete bladder emptying (R33.9) Active confirmed Problem [...] N/A Encounters Encounter Location Date Provider Diagnosis [employer] [address] [place] [address] 11/07/2024 STEFAN SHARMA Bladder mass N32.89 ; Establishing care with new doctor, encounter for Z76.89 ; Complicated UTI (urinary tract infection) N39.0 ; Gross hematuria R31.0 ; Urine stream spraying R39.198 and Incomplete bladder emptying R33.9 [employer] [address] [address] 11/14/2024 SHELLY RIVERS Bladder mass N32.89 ; Benign prostatic hyperplasia with lower urinary tract symptoms N40.1 ; Establishing care with new doctor, encounter for Z76.89 ; Complicated UTI (urinary tract infection) N39.0 ; Gross hematuria R31.0 ; Urine stream spraying R39.198 and Incomplete bladder emptying R33.9 [employer] [address] [place] [address] 11/20/2024 STEFAN SHARMA [employer] [address] [place] [address] 10/31/2024 STEFAN SHARMA DO NOT USE THIS FACILITY [employer] [address] [phone] 11/08/2024 STEFAN SHARMA Assessments Encounter Date Diagnosis (ICD Code) Assessment Notes Treatment Notes Treatment Clinical Notes Section Notes 11/14/2024 Benign prostatic hyperplasia with lower urinary [...] Doxycycline 100mg bid x 7 days 11/14/2024 Bladder mass (ICD-10 - N32.89) 84 [...] Doxycycline 100mg bid x 7 days 11/07/2024 Establishing care with new doctor, encounter for (ICD-10 - Z76.89) 11/07/2024 Bladder mass (ICD-10 - N32.89) 11/07/2024 Complicated UTI (urinary tract infection) (ICD-10 - N39.0) 11/14/2024 Establishing care with new doctor, encounter [...] Doxycycline 100mg bid x 7 days 11/07/2024 Gross hematuria (ICD-10 - R31.0) 11/14/2024 Gross hematuria (ICD-10 - R31.0) 84 [...] 11/07/2024 Urine stream spraying (ICD-10 - R39.198) 11/07/2024 Incomplete bladder emptying (ICD-10 - R33.9) 11/14/2024 Urine stream spraying (ICD-10 - R39.198) [...] Ortiz, 12/04/2024 09:00:00 AM, [address] [place], [address], Insurance Providers Payer Name Payer Address Payer Phone Subscriber Number Group Number Insured Name Patient Relationship to Insured Coverage Start Date Coverage End Date [employer] Medicare Replacement [address] [address] [place], [place] [id number] Thong Salgado Self - patient is the insured Medical (General) History Medical History History ICD Code arthritis skin cancer heart disease high cholesterol high blood pressure high thyroid stroke AFIB bladder mass Surgical History Surgery Date(Month/Year) pace maker skin cancer removal Appendectomy Double bypass Valve Hospitalization History Reason Date(Month/Year) See surgery hx
--- OUTSIDE RECORDS SUMMARY | 2024-11-21 06:11 | XMS_ITS | Encounter Summary ---
Author Organization [facility] Address [address] [place] [address] Care Team Providers Care Manager Social Name Role Phone Destin Chung MD Primary Care Provider [phone] Encounter Details Date Type Department Care Team (Late st Contact Info) Description 10/08/2019 Ancillary Orders [facility] External Department [address] [place] [phone] [facility], External Provider [address] [place] [address] Other chest pain Social History Tobacco Use Types Packs/Day Years Used Date Smoking Tobacco: Never Assessed Sex and Gender Information Value Date Recorded Sex Assigned at Not on file 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 External Provider Pat FLUOROSCOPY ORDERABLES Fin al Result documented in this encounter Visit Diagnoses Diagnosis Other chest pain Other chest pain documented in this encounter Care Teams Manager Social Relationship Specialty Start Date End Date Destin Chung MD [address] [facility] 1 [place] [address] PCP - General Family Practice 01/26/16 documented as of this encounter
--- OUTSIDE RECORDS SUMMARY | 2024-11-21 06:11 | XMS_ITS | Encounter Summary ---
Author Organization [facility] Address [address] [place] [address] Care Team Providers Care Marketing Development Representative Name Role Phone Destin Chung MD Primary Care Provider [phone] Encounter Details Date Type Department Care Team (Late st Contact Info) Description 10/08/[address] [facility] External Department [address] [place] [phone] 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 us External Provider [facility] ORDERABLES Final Resu lt documented in this encounter Visit Diagnoses Diagnosis Other chest pain Other chest pain documented in this encounter Care Teams Marketing Development Representative Relationship Specialty Start Date End Date Destin Chung MD [address] [facility] 1 [place] [address] PCP - General Family Practice 01/26/16 documented as of this encounter
--- OUTSIDE RECORDS SUMMARY | 2024-11-21 06:12 | XMS_ITS | Clinical Summary ---
Author Organization [facility] Address [address] [place] [address] Care Team Providers Care Formal Service Waiter Name Role Phone Destin Chung MD Primary Care Provider [phone] Allergies Active Allergy Reactions Criticality Noted Date [...] tablet Take 120 mg by mouth daily soil chemist. Active furosemide (LASIX) 40 mg tablet Take [...] Take 20 mEq by mouth daily. 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 Gender Identity Not on file Sexual Orientation [...] (#1) 2024 Medical Devices Implanted Type Area Labor Expediter Device Identifier Shelf Expiration Date Model / Serial / Lot Closure Perclose Proglide [id number] - [id number] Implanted:Qty: 1 on 11/26/2019 at [facility] Closure Device Right: Groin HELLER- VASC DEVICE 08/05/2021 [id number] / [id number] / [id number] [employer] Upkeep Mechanic 6-7fr [id number] - [id number] Implanted:Qty: 1 on 11/26/2019 at [facility] Closure Device Left: Groin ACCESS CLOSURE 10/06/2021 [id number] / / [id number] Valve Sapien3 Transcath 29mm [id number] - [id number] Implanted:Qty: 1 on 11/26/2019 by Yan Salmeron MD at [facility] Tissue N/A: Aorta [employer] [id number] / [id number] / Explanted Type Area Labor Expediter Device Identifier Shelf Expiration Date Model / Serial / Lot Cath Pace Bipolar 5fr [id number] - [id number] Explanted:Qty: 1 on 11/26/2019 at [facility] Catheter Left: Chest CR BARD- MED DIV 07/06/2021 [id number] / / [id number] Insurance [address] [place] [id number] [place] [address] Advance Directives For more information, please contact: [phone] * Full Code (Latest Code Status on File) Date Activated Date Inactivated Comments 11/26/2019 8:04 AM 11/27/2019 5:26 PM Care Teams Formal Service Waiter Relationship Specialty Start Date End Date Destin Chung MD [address] [phone] PCP - General Family Practice 01/26/16
--- NOTE | 2024-11-21 10:34 | PC.PHAR ---
Patient has Fluconazole 100 rx on his Profile but Pharmacy Doesn't have a fill date .
--- NOTE | 2024-11-21 12:32 | P.PN_ITS ---
Vitals/I&O/Wt Last Vital Signs Temp 98.2 F 11/21/24 11:40 Pulse 86 11/21/24 11:40 Resp 16 11/21/24 11:40 BP 117/74 11/21/24 11:40 Pulse Ox 96 11/21/24 11:40 O2 Del Method Room Air 11/21/24 11:40 11/20/24 11/21/24 11/21/24 22:59 06:59 14:59 Intake Total 460 / 460 240 / 700 100 / 100 Output Total 475 / 475 625 / 1100 Balance -15 -385 / -400 100 / 100 Weight last 48 hrs Weight 100.017 kg Weight 100.017 kg Weight 97.296 kg Physical Exam 2 Narrative: General: No acute distress, AO x3, pleasant HEENT: PERRLA, pupils bilaterally equal and reactive Chest: Normal vesicular breath sounds, no added sounds, equal good air entry bilaterally CVS: S1-S2 regular, no murmurs, no tachycardia, no gallops, no rubs Abdomen: Soft, nontender, no organomegaly, bowel sounds present Neuro: No focal deficits, no facial deformity, AO x3, power 5/5 in all limbs Urinary Catheter Management: Rutherford: Cath Placed During This Visit: yes Reason for Continuing Indwelling Catheter: Acute Urinary Retention or Obstruction Urinary Catheter Date of Insertion: 11/20/24 Urinary Catheter Time of Insertion: 18:42 Data 11/21/24 05:10 11/21/24 05:10 Micro: Microbiology 11/21/24 05:15 Blood Culture - Preliminary Blood SPECIMEN COLLECTED 11/21/24 05:10 Blood Culture - Preliminary Blood SPECIMEN COLLECTED 11/20/24 18:25 Blood Culture - Preliminary Blood SPECIMEN COLLECTED 11/20/24 18:30 Blood Culture - Preliminary Blood SPECIMEN COLLECTED A&P Assessment and plan 1. Fungemia: Blood culture from 11/15 1 out of 4 bottles positive for budding yeast. No speciation identification available for now. Urine culture also from 11/15 positive for yeast. Empirically start on IV micafungin for now. Stat blood culture. Will most likely repeat blood culture in AM. Will consult infectious disease for further recommendations. Patient has a history of TAVR and possible pacemaker. He will most likely need further evaluation and workup to rule out endocarditis. 2. Systolic and diastolic CHF, chronic: 3. Other cardiomyopathy: 4. S/p TAVR (transcatheter aortic valve replacement), bioprosthetic: 5. Coronary arteriosclerosis after coronary artery bypass graftin. Essential hypertension: 7. Bladder outlet obstruction: 8. Keiry UTI: 9. Mass of urinary bladder determined by ultrasound: Plan: History of systolic and diastolic congestive heart failure due to cardiomyopathy: Last echocardiogram from 08/30 shows EF 35% with moderately increased LA size, moderate MR. Currently patient is euvolemic. Hold off on IV fluids and diuretics for now. Strict input output charting, daily weights. Hypertension: Goal blood pressure less than 140/90 mmHg. Patient takes Entresto, metoprolol at home. For now continue with metoprolol. Hold off on Entresto for now. CKD: Creatinine more recently since August 2023 has been elevated with baseline seem to be around 1.5-1.7. Currently 1.6. Continue to monitor BMP daily. Bladder outlet obstruction: Follows up with urology as an outpatient. Bladder scan. If needed will plan for Rutherford catheterization. Will discuss with the patient and possibly start on Flomax. Atrial fibrillation: Continue with home dose of metoprolol and amiodarone. Switch to Lovenox 1 mg/kg body weight daily for now. Hold off on Eliquis. History of CAD: No active chest pain. Check A1c, lipid panel. Continue with home dose of Plavix, statin. Full code. Confirmed with patient. His friend will be DPOA. Will request case management for DPOA paperwork in AM. Cardiac diet. Protonix for PUD prophylaxis Full dose Lovenox will be sufficient for DVT prophylaxis. Plan for the day: Continue with micafungin. Have requested micro lab to send the yeast growth from 11/15 for further identification and specificities. Follow-up cultures from 11/20 and 11/21. Echocardiogram to rule out infective endocarditis. Patient will most likely need a TRE. Pacemaker interrogation. Given yeast in urine for now we will hold off on Farxiga. Will consult ID for further recommendation. Continue other chronic medication including Plavix, amiodarone, colchicine, levothyroxine, metoprolol. Goal blood pressure less than 140/90 mmHg. Holding off on home dose of Entresto and spironolactone for now. Kidney functions with creatinine down to 1.3. Patient found to have 400 cc of urine with Rutherford catheterization with concerns of bladder outlet obstruction. Continue with Rutherford catheterization for now. Start on Flomax 0.4 mg daily. Can plan for voiding trial later in the admission. When improvement in creatinine clearance for now we will change to Lovenox twice daily. Holding off on Eliquis. PDMP PDMP Reviewed: Not Reviewed Attestations 2 Medical Necessity Statement*: Requires further hospitalization for management of fungemia in setting of fungal UTI Diagnoses Fungemia B49 Systolic and diastolic CHF, chronic I50.42 Other cardiomyopathy I42.8 Cardiomyopathy type: other S/p TAVR (transcatheter aortic valve replacement), bioprosthetic Z95.3 Coronary arteriosclerosis after coronary artery bypass grafting I25.810 Essential hypertension I10 Bladder outlet obstruction N32.0 Keiry UTI B37.49 Mass of urinary bladder determined by ultrasound N32.89
--- NOTE | 2024-11-21 12:47 | USCV_ITS ---
Thong Salgado Age: 84 Gender: M : 1940 Exam Date: 11/21/2024 16:03 Ordering Phys: Rafael Vale MD Technologist: MANNY [place] [facility] [place]: ?Endocarditis BP: 139 / 80 HR: 80 Rhythm: Sinus Technical Quality: Adequate MEASUREMENTS (Male / Female) Normal Values 2D ECHO LV Diastolic Diameter PLAX 6.0 cm 4.2 - 5.9 / 3.9 - 5.3 cm IVS Diastolic Thickness 1.1 cm 0.6 - 1.0 / 0.6 - 0.9 cm IVS Systolic Thickness 1.4 cm LVPW Diastolic Thickness 1.3 cm 0.6 - 1.0 / 0.6 - 0.9 cm LVPW Systolic Thickness 1.5 cm LVOT Diameter 2.0 cm LV Ejection Fraction 2D Teich 49.2 % LV Ejection Fraction MOD 4C 44.1 % LV Ejection Fraction MOD 2C 41.3 % LV Ejection Fraction 2C AL 39.2 % LA Diameter 5.1 cm RA Systolic Volume 4C AL 114.4 ml RA Systolic Volume 4C MOD 104.6 ml LA Sys Volume AL 123.5 cm cubed LA Sys Volume Index AL 55.2 cm cubed/m squared Aorta at Sinotubular Diameter 3.8 cm M-MODE LA Ao Ratio MM 2.3 AV Cusp Separation MM 1.3 cm DOPPLER AV Peak Velocity 199.3 cm/s LVOT Peak Velocity 104.0 cm/s AV Area Cont Eq vti 1.4 cm squared AV Area Cont Eq pk 1.6 cm squared MV Peak Velocity 109.0 cm/s MV Area PHT 4.8 cm squared Mitral E to A Ratio 1.8 TR Peak Velocity 295.0 cm/s TR Peak Gradient 34.8 mmHg TV Peak E Velocity 94.0 cm/s PV Peak Velocity 96.0 cm/s FINDINGS Left Ventricle Left ventricle is dilated. LV systolic function is moderately reduced with EF of 35-40%. Moderate global hypokinesis. Right Ventricle Normal in size and function Right Atrium Dilated Left Atrium Dilated IA Septum Grossly normal Mitral Valve Moderate mitral annular calcification. Mild mitral regurgitation. Aortic Valve Aortic valve is thickened and calcified. Possible bioprosthetic aortic valve. Mild aortic stenosis with aortic valve area 1.8 cm squared and mean gradient of 10 mmHg. Mild aortic regurgitation. Tricuspid Valve Mild tricuspid regurgitation. RVSP is 35-40 mmHg. This is consistent with mild pulmonary hypertension Pulmonic Valve Mild to moderate pulmonic regurgitation. Pericardium Normal Aorta Ascending aorta is dilated with diameter of 3.58 cm. IVC Not well visualized CONCLUSIONS LV systolic function is moderately reduced with EF of 35-40% Biatrial dilation Mild mitral regurgitation. Biprosthetic aortic valve. Mild aortic stenosis with aortic valve area 1.8 cm squared and mean gradient of 10 mmHg. Mild aortic regurgitation. Mild tricuspid regurgitation. Mild pulmonary hypertension Mild to moderate pulmonic regurgitation. Ascending aorta is dilated with diameter of 3.58 cm. Laith Peters MD (Electronically Signed) Final Date: 22 November 2024 16:52 S
--- NOTE | 2024-11-21 14:37 | PM.CONSULT ---
Documented by User: CAROL Merino STDNT 11/21/24 15:04 Providers/Reason For Consult Consulting Physician/Specialty*: Monik Nixon MD / Infectious Disease Reason for Consult*: Fungemia Attending Physician: Rafael Vale MD Primary Care Provider: Destin Chung MD History of Present Illness History of Present Illness Thong Salgado Jr is a 84 year old male with a history of total aortic valve replacement, atrial fibrillation, congestive heart failure with EF 35%, CAD post CABG, pacemaker placement x3, and bladder outlet obstruction who is admitted for positive blood cultures for budding yeast. He follows up with urology in [place], [place], with possible scheduled TURP within the next two weeks. He has experienced gross hematuria 6 weeks ago and underwent cystoscopy for biopsy with urology in [place]. No biopsy was obtained at that time due to cloudiness of the urine. Post cystoscopy, patient reported gross hematuria and claimed he had a UTI but denied dysuria nor fever. He denies a history of smoking, alcohol, or prior IV drug use. He also denies a history of HIV. Review of Systems General: Reports: 10 or more systems reviewed and unremarkable except in HPI and below Const: Denies: fever(s), chills, body aches, change in appetite, change in weight, malaise, night sweats, diaphoresis, change in sleep pattern, daytime sleepiness or snoring Eyes: Denies: change in vision, blurry vision, photophobia, eye discomfort or eye discharge ENMT: Denies: throat pain, enlarged tonsils, hoarseness, mouth pain, oral sores, dry mouth, tinnitus, nasal congestion or post nasal drip Card: Denies: chest pain, palpitations, irregular heart rhythm, edema, swelling of feet/ankles, lightheadedness, syncope, pre-syncope, dyspnea on exertion, orthopnea, leg pain with exertion or acrocyanosis Resp: Denies: dyspnea, productive cough, non-productive cough, wheezing, stridor, pain on inspiration, change in phlegm color, hemoptysis or chest congestion GI: Denies: abdominal pain, nausea, vomiting, hematemesis, coffee ground emesis, dysphagia, heartburn, diarrhea, constipation, bloating, GI cramping, change in bowel habits, pain on defecation, hematochezia or melena : Denies: flank pain, difficulty urinating, dysuria, urinary frequency, urinary urgency, urinary hesitancy, urinary dribbling, difficulty starting urination, change in urine stream, nocturia or hematuria Musc: Denies: neck pain, back pain, extremity pain, joint pain, joint swelling, joint redness, joint stiffness or limited range of motion Neuro: Denies: headache(s), numbness in extremities, weakness in extremities, sensory changes, lack of coordination, difficulty walking, frequent falls, dizziness, vertigo, confusion, Slurred speech present, difficulty communicating thoughts or seizure-like activity Psych: Denies: anxiety, depression, mood swings, panic attacks, hopelessness or irritability Endo: Denies: polyuria, polydipsia, tired all the time, cold intolerance, excessive sweating, flushing or heat intolerance David/Lymph: Denies: easy bruising or easy bleeding All/Imm: Denies: tongue swelling, facial swelling or acute wheezing Medications/Allergies Home Medications ?Medication ?Instructions ?Recorded ?Confirmed ?Last Taken ?Type ascorbic acid (vitamin C) 500 mg 500 mg PO DAILY 02/13/19 11/21/24 11/20/24 History tablet (Vitamin C) ferrous gluconate 324 mg (37.5 mg 324 mg PO DAILY 02/13/19 11/21/24 11/20/24 History iron) tablet glucosamine HCl 1,500 mg tablet 1,500 mg PO DAILY 06/17/19 11/21/24 11/20/24 History sour kumar extract 1,000 mg 1,000 mg PO DAILY 06/16/20 11/21/24 11/20/24 History capsule (Tart Kumar Extract) clopidogrel 75 mg tablet (Plavix) 75 mg PO DAILY #90 tabs 01/18/23 11/21/24 11/20/24 Rx magnesium chloride 64 mg 64 mg PO BID #180 tabs 01/18/23 11/21/24 11/20/24 Rx (magnesium chloride) tablet,delayed release (Mag 64) multivit,Ca,dyhd-ET-azyzjknh-lutn 1 tab PO DAILY 06/21/23 11/21/24 11/20/24 History 18 mg-500 mcg-300 mcg-250 mcg tablet omega-3 fatty acids 1,000 mg 1,000 mg PO BID 05/11/21/24 11/20/24 History capsule vitamin B complex 1 tab PO DAILY 06/21/23 11/21/24 11/20/24 History potassium citrate 99 mg capsule 99 mg PO BID 08/18/23 11/21/24 11/20/24 History Eliquis 5 mg tablet (apixaban) 5 mg PO BID #180 tabs 01/11/24 11/21/24 11/20/24 Rx metoprolol succinate 25 mg 12.5 mg PO DAILY 02/29/24 11/21/24 11/20/24 History tablet,extended release 24 hr amiodarone 200 mg tablet 200 mg PO DAILY #180 tabs 04/03/24 11/21/24 11/20/24 Rx dapagliflozin propanediol 10 mg 10 mg PO DAILY #90 tabs 06/05/24 11/21/24 11/20/24 Rx tablet (Farxiga) colchicine 0.6 mg tablet 0.6 mg PO DAILY #90 tabs 08/26/24 11/21/24 11/20/24 Rx sulfasalazine 500 mg tablet 1,000 mg (2 x 500 mg) PO BID #360 08/26/24 11/21/24 11/20/24 Rx tabs furosemide 40 mg tablet See Rx Instructions .Route .COMPLEX 10/10/24 11/21/24 11/20/24 History rosuvastatin 20 mg tablet 20 mg PO BEDTIME 10/10/24 11/21/24 11/19/24 19:00 History sacubitril 49 mg-valsartan 51 mg 1 tab PO BID 10/10/24 11/21/24 11/20/24 History tablet (Entresto) spironolactone 25 mg tablet 12.5 mg PO QAM 11/06/24 11/21/24 11/20/24 08:00 History fluconazole 100 mg tablet 200 mg (2 x 100 mg) PO DAILY #12 11/17/24 11/21/24 Unknown Rx tabs levothyroxine 50 mcg tablet 75 mcg (1.5 x 50 mcg) PO QAM #30 11/17/24 11/21/24 11/20/24 Rx tabs Allergies Allergy/AdvReac Type Severity Reaction Status Date / Time ciprofloxacin Allergy Unknown unknown Verified 08/26/24 10:52 Penicillins Allergy Unknown unknown Verified 08/26/24 10:52 simvastatin Allergy unknown Verified 08/26/24 10:52 allopurinol AdvReac itching Verified 08/26/24 10:52 lisinopril AdvReac cough Verified 08/26/24 10:52 Current Medications Generic Name Dose Route Start Last Admin Trade Name Freq PRN Reason Stop Dose Admin Amiodarone HCl 200 mg 11/21/24 05:00 11/21/24 04:27 Amiodarone 200 Mg Tablet PO 200 mg DAILY SLIME Administration Atorvastatin Calcium 80 mg 11/20/24 21:00 11/20/24 20:17 Atorvastatin 40 Mg Tablet PO 80 mg BEDTIME SLIME Administration Clopidogrel Bisulfate 75 mg 11/21/24 05:00 11/21/24 04:29 Clopidogrel 75 Mg Tablet PO 75 mg DAILY SLIME Administration Colchicine 0.6 mg 11/21/24 05:00 11/21/24 04:28 Colchicine 0.6 Mg Tablet PO 0.6 mg DAILY SLIME Administration Docusate Sodium 100 mg 11/21/24 05:00 11/21/24 04:28 Docusate Sodium 100 Mg Capsule PO Not Given BID SLIME Micafungin Sodium 100 mg/ 100 mls @ 100 mls/hr 11/20/24 17:30 11/20/24 19:03 Sodium Chloride IV Infused Q24H SLIME Infusion Levothyroxine Sodium 75 mcg 11/21/24 05:00 11/21/24 04:28 Levothyroxine 50 Mcg Tablet PO 75 mcg QAM SLIME Administration Melatonin 9 mg 11/20/24 23:17 11/20/24 23:29 Melatonin 3 Mg Tablet PO 9 mg BEDTIME PRN Administration insomnia Metoprolol Succinate 12.5 mg 11/21/24 05:00 11/21/24 04:29 Metoprolol Succinate Er (24 Hr) 25 Mg Tablet PO 12.5 mg DAILY SLIME Administration Pantoprazole Sodium 40 mg 11/20/24 17:30 11/20/24 18:04 Pantoprazole 40 Mg Sdv IVP 40 mg Q24H SLIME Administration PFSH Acute PFSH: Medical History ESBL (extended spectrum beta-lactamase) producing bacteria infection History of nonmelanoma skin cancer CVA (cerebral vascular accident) CKD (chronic kidney disease) stage 3, GFR 30-59 ml/min Nonsustained ventricular tachycardia Pulmonary valve regurgitation Hypothyroidism Atrial fibrillation Lumbar stenosis with neurogenic claudication Degenerative disc disease Vertebral artery stenosis Aortic aneurysm Weakness Weakness of both lower extremities Lactic acidosis Fever of unknown origin Acute urinary retention Leg weakness Gout COVID-19 vaccine administered Macular degeneration Seropositive rheumatoid arthritis of multiple sites Immunization counseling High risk medication use Osteoarthritis of knees, bilateral Inflammatory arthritis Gout, arthritis Edema, peripheral Coronary arteriosclerosis after coronary artery bypass grafting CABG x2 (OLSON to LAD and SVG to OM, 05/08/2008) Cardiomyopathy LVEF has decreased from 45% to 35% by echocardiogram. Cataract Cardiac arrhythmia Pacemaker Dual-chamber Mixed hyperlipidemia last lipid panel 2020: Cholesterol 93, triglycerides 78, LDL 55. Thoracic aneurysm without mention of rupture Ascending aortic aneurysm 4.4cm by CT 07/2017 Essential hypertension Surgical History History of surgical removal of ganglion cyst Hx of cataract surgery S/p TAVR (transcatheter aortic valve replacement), bioprosthetic Hx of CABG Hx of appendectomy H/O foot surgery Family History Mother Dementia Other CAD (coronary artery disease) Diabetes Hyperlipidemia Hypertension Stroke Denies family history of Clotting disorder Psychiatric illness Chronic kidney disease (CKD) Suicide Anesthesia complication Bleeding disorder Family history of premature coronary artery disease Lung disease Cancer Social History Smoking and tobacco/nicotine status: never used tobacco/nicotine Alcohol intake: never Substance/Drug Use: never Household members: significant other Housing: House Dietary Habits: Current diet type/program: regular Caffeine: Yes (coffee and soda) Exercise: What type of physical activity do you participate in?: other Physical activity functional status: independent ambulation Safety: Seatbelt use: always Home Safety: Working smoke detector in home: Yes Fire extinguisher in home: Yes Carbon monoxide detector in home: Yes Personal Safety: Do you feel safe at home: No Victim of physical abuse: No Victim of emotional abuse: No Victim of sexual abuse: No Would you like help information on resources?: No Vitals/I&O/Wt Last Vital Signs Temp 98.2 F 11/21/24 11:40 Pulse 86 11/21/24 11:40 Resp 16 11/21/24 11:40 BP 117/74 11/21/24 11:40 Pulse Ox 96 11/21/24 11:40 O2 Del Method Room Air 11/21/24 11:40 11/20/24 11/21/24 11/21/24 22:59 06:59 14:59 Intake Total 460 / 460 240 / 700 200 / 200 Output Total 475 / 475 625 / 1100 Balance - -385 / -400 200 / 200 Weight last 48 hrs Weight 100.017 kg Weight 100.017 kg Weight 97.296 kg Physical Exam Const: COMMON NORMALS: no acute distress, patient oriented x3, no limitations, alert and well nourished HENMT: COMMON NORMALS: normocephalic and atraumatic HEAD & SCALP: normocephalic and atraumatic Resp: COMMON NORMALS: normal respiratory effort, No use of accessory muscles and clear to auscultation bilaterally AUSCULTATION: clear to auscultation bilaterally Cardio: COMMON NORMALS: regular rate, regular rhythm, S1 normal heart sound present and S2 normal heart sound present RATE: regular rate RHYTHM: regular rhythm HEART SOUNDS: S1 normal heart sound present, S2 normal heart sound present and no murmurs (mechanical aortic valve heard) GI: COMMON NORMALS: Normal to inspection, nondistended, normoactive bowel sounds present and Soft to palpation PALPATION: Yes Soft to palpation Neuro: COMMON NORMALS: patient oriented x3 SENSORIUM/ORIENTATION: Yes alert Skin: COMMON NORMALS: no rashes or lesions noted GENERAL SKIN EXAM: no rashes or lesions noted Urinary Catheter Management: Rutherford: Cath Placed During This Visit: yes Reason for Continuing Indwelling Catheter: Acute Urinary Retention or Obstruction Urinary Catheter Date of Insertion: 11/20/24 Urinary Catheter Time of Insertion: 18:42 Data 11/21/24 05:10 11/21/24 05:10 Micro: Microbiology 11/21/24 05:15 Blood Culture - Preliminary Blood SPECIMEN COLLECTED 11/21/24 05:10 Blood Culture - Preliminary Blood SPECIMEN COLLECTED 11/20/24 18:25 Blood Culture - Preliminary Blood SPECIMEN COLLECTED 11/20/24 18:30 Blood Culture - Preliminary Blood SPECIMEN COLLECTED A&P Assessment and plan 1. Candidemia: 2. Cindy UTI: 3. S/p TAVR (transcatheter aortic valve replacement), bioprosthetic: 4. Pacemaker: 5. Chronic bacteriuria: Plan: 1. Fungemia Plan is to continue IV Micafungin 100mg while fungal sensitivities are pending at [facility]. Serial blood cultures will be drawn every day to determine treatment effectiveness and plan. Transthoracic echocardiogram should be performed to assess for fungal leaflets growing on pacemaker or replaced aortic valve to assess need for future removal, sterilization, and replacement. Transesophageal echocardiogram should be performed for any suspicious findings on TTE. Thank you for bugging us with this consult. PDMP PDMP Reviewed: Not Reviewed Coding Level of Care Code Acute Code for Chg Fwd Diagnoses Candidemia B37.7 Cindy UTI B37.49 S/p TAVR (transcatheter aortic valve replacement), bioprosthetic Z95.3 Pacemaker Z95.0 Chronic bacteriuria R82.71 Documented by User: Monik Nixon MD 11/21/24 16:11 Providers/Reason For Consult Requesting Physician: Rafael Vale MD History of Present Illness History of Present Illness Thong Salgado Jr is a 84 year old male with a history of total aortic valve replacement, atrial fibrillation, congestive heart failure with EF 35%, CAD post CABG, pacemaker placement x3, and bladder outlet obstruction who is admitted for positive blood cultures for budding yeast. He follows up with urology in [place], [place], with possible scheduled TURP within the next two weeks. He has experienced gross hematuria 6 weeks ago and underwent cystoscopy for biopsy with urology in [place]. No biopsy was obtained at that time due to cloudiness of the urine. Post cystoscopy, patient reported gross hematuria and claimed he had a UTI but denied dysuria nor fever. He denies a history of smoking, alcohol, or prior IV drug use. He also denies a history of HIV. Attending addendum. Seen and examined with medical student. 84-year-old male with a past medical history of TAVR, status post dual-chamber pacemaker, history of CHF, A-fib, post CABG and bladder outlet obstruction. Patient reports being diagnosed with urinary retention approximately 1 year ago for which he needed a Rutherford catheter to remain in place for about 8 days. Since then he reports multiple episodes of urinary tract infection for which he has received several antibiotics from time to time. He reports that his symptoms have been a persistent urinary urgency however this does not differ from day today. He does not describe any burning micturition. Denies any suprapubic discomfort. Denies any fever with these UTI episodes. Ultrasound of the abdomen from October 15, 2024 had shown trabeculation involving the wall of bladder. There was a mass along the posterior wall of the bladder measuring 5 x 2.2 x 4.6 cm in size. This was noted to be separate from the prostate and raised suspicion for posterior bladder mass. He had urinary retention with PVR of 210 cc. Patient has since followed up with urology at [place] where a cystoscopy was attempted however biopsy was unable to be taken due to ? Hematuria/poor visualization of the mass. He is planned to undergo TURP and possibly biopsy in 2 weeks at [place]. Patient was recently admitted here on 11/15/2024 a day after his cystoscopy when he developed gross hematuria. UA showed bacteriuria. Patient was hypoxic on this day chest x-ray showed bibasilar opacities. He was treated for pneumonia and UTI. His urine culture eventually revealed Pichia kudriavzevii (p. cindy krusei) for which he was prescribed fluconazole. Blood culture taken on previous admission on 11/15/2024 resulted positive for yeast which have now been identified as Nakaseomyces Glabrata / bottles. Patient was called back for admission once his blood culture was reported positive. Case was discussed with me yesterday and I recommended starting the patient on micafungin 100 mg IV every 24 hours. Medications/Allergies Home Medications ?Medication ?Instructions ?Recorded ?Confirmed ?Last Taken ?Type ascorbic acid (vitamin C) 500 mg 500 mg PO DAILY 02/13/19 11/21/24 11/20/24 History tablet (Vitamin C) ferrous gluconate 324 mg (37.5 mg 324 mg PO DAILY 02/13/19 11/21/24 11/20/24 History iron) tablet glucosamine HCl 1,500 mg tablet 1,500 mg PO DAILY 06/17/19 11/21/24 11/20/24 History sour kumar extract 1,000 mg 1,000 mg PO DAILY 06/16/20 11/21/24 11/20/24 History capsule (Tart Kumar Extract) clopidogrel 75 mg tablet (Plavix) 75 mg PO DAILY #90 tabs 01/18/23 11/21/24 11/20/24 Rx magnesium chloride 64 mg 64 mg PO BID #180 tabs 01/18/23 11/21/24 11/20/24 Rx (magnesium chloride) tablet,delayed release (Mag 64) multivit,Ca,zrrp-YY-lpcukwrb-lutn 1 tab PO DAILY 06/21/23 11/21/24 11/20/24 History 18 mg-500 mcg-300 mcg-250 mcg tablet omega-3 fatty acids 1,000 mg 1,000 mg PO BID 06/21/23 11/21/24 11/20/24 History capsule vitamin B complex 1 tab PO DAILY 06/21/23 11/21/24 11/20/24 History potassium citrate 99 mg capsule 99 mg PO BID 08/18/23 11/21/24 11/20/24 History Eliquis 5 mg tablet (apixaban) 5 mg PO BID #180 tabs 01/11/24 11/21/24 11/20/24 Rx metoprolol succinate 25 mg 12.5 mg PO DAILY 02/29/24 11/21/24 11/20/24 History tablet,extended release 24 hr amiodarone 200 mg tablet 200 mg PO DAILY #180 tabs 04/03/24 11/21/24 11/20/24 Rx dapagliflozin propanediol 10 mg 10 mg PO DAILY #90 tabs 06/05/24 11/21/24 11/20/24 Rx tablet (Farxiga) colchicine 0.6 mg tablet 0.6 mg PO DAILY #90 tabs 08/26/24 11/21/24 11/20/24 Rx sulfasalazine 500 mg tablet 1,000 mg (2 x 500 mg) PO BID #360 08/26/24 11/21/24 11/20/24 Rx tabs furosemide 40 mg tablet See Rx Instructions .Route .COMPLEX 10/10/24 11/21/24 11/20/24 History rosuvastatin 20 mg tablet 20 mg PO BEDTIME 10/10/24 11/21/24 11/19/24 19:00 History sacubitril 49 mg-valsartan 51 mg 1 tab PO BID 09/05/3111/21/24 11/20/24 History tablet (Entresto) spironolactone 25 mg tablet 12.5 mg PO QAM 11/06/24 11/21/24 11/20/24 08:00 History fluconazole 100 mg tablet 200 mg (2 x 100 mg) PO DAILY #12 11/17/24 11/21/24 Unknown Rx tabs levothyroxine 50 mcg tablet 75 mcg (1.5 x 50 mcg) PO QAM #30 11/17/24 11/21/24 11/20/24 Rx tabs Allergies Allergy/AdvReac Type Severity Reaction Status Date / Time ciprofloxacin Allergy Unknown unknown Verified 08/26/24 10:52 Penicillins Allergy Unknown unknown Verified 08/26/24 10:52 simvastatin Allergy unknown Verified 08/26/24 10:52 allopurinol AdvReac itching Verified 08/26/24 10:52 lisinopril AdvReac cough Verified 08/26/24 10:52 PFSH Acute PFSH: Medical History ESBL (extended spectrum beta-lactamase) producing bacteria infection History of nonmelanoma skin cancer CVA (cerebral vascular accident) CKD (chronic kidney disease) stage 3, GFR 30-59 ml/min Nonsustained ventricular tachycardia Pulmonary valve regurgitation Hypothyroidism Atrial fibrillation Lumbar stenosis with neurogenic claudication Degenerative disc disease Vertebral artery stenosis Aortic aneurysm Weakness Weakness of both lower extremities Lactic acidosis Fever of unknown origin Acute urinary retention Leg weakness Gout COVID-19 vaccine administered Macular degeneration Seropositive rheumatoid arthritis of multiple sites Immunization counseling High risk medication use Osteoarthritis of knees, bilateral Inflammatory arthritis Gout, arthritis Edema, peripheral Coronary arteriosclerosis after coronary artery bypass grafting CABG x2 (OLSON to LAD and SVG to OM, 05/08/2008) Cardiomyopathy LVEF has decreased from 45% to 35% by echocardiogram. Cataract Cardiac arrhythmia Pacemaker Dual-chamber Mixed hyperlipidemia last lipid panel 2019: Cholesterol 93, triglycerides 78, LDL 55. Thoracic aneurysm without mention of rupture Ascending aortic aneurysm 4.4cm by CT 07/2017 Essential hypertension Surgical History History of surgical removal of ganglion cyst Hx of cataract surgery S/p TAVR (transcatheter aortic valve replacement), bioprosthetic Hx of CABG Hx of appendectomy H/O foot surgery Family History Mother Dementia Other CAD (coronary artery disease) Diabetes Hyperlipidemia Hypertension Stroke Denies family history of Clotting disorder Psychiatric illness Chronic kidney disease (CKD) Suicide Anesthesia complication Bleeding disorder Family history of premature coronary artery disease Lung disease Cancer Social History Smoking and tobacco/nicotine status: never used tobacco/nicotine Alcohol intake: never Substance/Drug Use: never Household members: significant other Housing: House Physical Exam Urinary Catheter Management: Rutherford: Cath Placed During This Visit: yes Data 11/21/24 05:10 11/21/24 05:10 Other data: Radiology Impressions Chest X-Ray 11/20/24 17:32 IMPRESSION: As above. Laboratory Results WBC 6.57 10^3/uL (3.29-11.43) 11/21/24 05:10 RBC 3.36 10^6/uL (3.85-5.65) L 11/21/24 05:10 Hgb 10.70 g/dL (11.27-16.99) L 11/21/24 05:10 Hct 32.7 % (37-53) L 11/21/24 05:10 MCV 97.3 fl (82-101) 11/21/24 05:10 MCH 31.8 pg (27-33) 11/21/24 05:10 MCHC 32.7 g/dL (30-55) 11/21/24 05:10 RDW 13.3 % (12.1-15.1) 11/21/24 05:10 Plt Count 254 10^3/cmm (157-399) 11/21/24 05:10 MPV 9.0 fL (7.4-10.4) 11/21/24 05:10 Neut % (Auto) 65.6 % 11/21/24 05:10 Lymph % (Auto) 21.3 % 11/21/24 05:10 [place] % (Auto) 9.4 % 11/21/24 05:10 Eos % (Auto) 2.4 % 11/21/24 05:10 Baso % (Auto) 0.8 % 11/21/24 05:10 Neut # (Auto) 4.31 10^3/uL (1.8-7.7) 11/21/24 05:10 Lymph # (Auto) 1.4 10^3/uL (0.8-4.8) 11/21/24 05:10 [place] # (Auto) 0.6 10^3/uL (0.2-0.9) 11/21/24 05:10 Eos # (Auto) 0.2 10^3/uL (0.0-0.8) 11/21/24 05:10 Baso # (Auto) 0.1 10^3/uL (0.0-0.1) 11/21/24 05:10 Nucleated RBC % (auto) 0 % 11/21/24 05:10 Nucleated RBCs # 0.0 /100WBC 11/21/24 05:10 Sodium 142 mmol/L (136-145) 11/21/24 05:10 Potassium 3.9 mmol/L (3.5-5.1) 11/21/24 05:10 Chloride 103 mmol/L (98-107) 11/21/24 05:10 Carbon Dioxide 24 mmol/L (22-29) 11/21/24 05:10 Anion Gap 18.9 (5-19) 11/21/24 05:10 BUN 23 mg/dL (8-23) 11/21/24 05:10 Creatinine 1.3 mg/dL (0.7-1.2) H 11/21/24 05:10 GFR Calculation Not Reportable 11/21/24 05:10 Glucose 127 mg/dL (65-115) H 11/21/24 05:10 Estimat Average Glucose 151 11/20/24 18:25 Hemoglobin A1c 6.9 % (4.0-6.0) H 11/20/24 18:25 Calculated Osmolality 299 mOsm/kg (285-295) H 11/21/24 05:10 Lactic Acid 1.5 mmol/L (0.5-2.2) 11/20/24 18:25 Calcium 9.0 mg/dL (8.5-10.5) 11/21/24 05:10 Phosphorus 3.4 mg/dL (2.5-4.5) 11/21/24 05:10 Magnesium 2.5 mg/dL (1.7-2.3) H 11/21/24 05:10 Iron 36 ug/dL (59-158) L 11/20/24 18:25 TIBC 241 mcg/dl 11/20/24 18: % Saturation 14.9 % (20-50) L 11/20/24 18: Unsat Iron Binding 205 ug/dL (112-347) 11/20/24 18:25 Total Bilirubin 0.4 mg/dL (0.15-1.2) 11/21/24 05:10 AST 28 U/L (0-40) 11/21/24 05:10 ALT 35 U/L (0-41) 11/21/24 05:10 Alkaline Phosphatase 40 U/L (40-130) 11/21/24 05:10 Total Protein 6.8 g/dL (6.6-8.7) 11/21/24 05:10 Albumin 3.9 g/dL (3.5-5.2) 11/21/24 05:10 Globulin 2.9 g/dL (1.3-4.6) 11/21/24 05:10 Triglycerides 147 mg/dL (0-150) 11/21/24 05:10 Cholesterol 96 mg/dL (0-200) 11/21/24 05:10 LDL Cholesterol, Calc 44 mg/dL (50-129) L 11/21/24 05:10 HDL Cholesterol 23 mg/dL (60-100) L 11/21/24 05:10 LDL/HDL Ratio 1.91 RATIO (0.00-3.22) 11/21/24 05:10 Cholesterol/HDL Ratio 4.17 mg/dL (1.0-5.00) 11/21/24 05:10 Vitamin B12 848 pg/mL (232-1245) 11/20/24 18:25 Folate 9.4 ng/mL (4.5-32.2) 11/21/24 05:10 Procalcitonin 0.10 ng/mL (0-0.5) 11/21/24 05:10 TSH Cancelled 11/20/24 18:25 Free T4 0.91 ng/dL (0.82-1.77) 11/20/24 18:25 Free T3 2.1 PG/ML (2.0-4.4) 11/20/24 18:25 Urine Color Yellow (Yellow) 11/20/24 18:15 Urine Appearance Clear (CLEAR) 11/20/24 18:15 Urine pH 5.5 (5-7) 11/20/24 18:15 Ur Specific [place] 1.019 (1.005-1.030) 11/20/24 18:15 Urine Protein 1+ (Negative) A 11/20/24 18:15 Urine Glucose (UA) 2+ (Normal) H 11/20/24 18:15 Urine Ketones Negative (Negative) 11/20/24 18:15 Urine Blood Trace (Negative) A 11/20/24 18:15 Urine Nitrate Negative (Negative) 11/20/24 18:15 Urine Bilirubin Negative (Negative) 11/20/24 18:15 Urine Urobilinogen 0.2 mg/dL (Negative) 11/20/24 18:15 Ur Leukocyte Esterase 2+ (Negative) A 11/20/24 18:15 Urine RBC 0-2 /hpf (0-2) 11/20/24 18:15 Urine WBC >100 /hpf (0-5) H 11/20/24 18:15 Ur Squamous Epith Cells 0-5 /hpf (0-5) 11/20/24 18:15 Amorphous Sediment Not Reportable 11/19/24 18:15 Urine Bacteria None seen /hpf (NONE) 11/20/24 18:15 Hyaline Casts 4.52 /lpf 11/20/24 18:15 Urine Yeast 2+ /hpf H 11/20/24 18:15 A&P Assessment and plan 1. Candidemia: 84-year-old male admitted to the hospital for candidemia with recent history as noted above. Blood culture from November 15, 2024 reported 1 out of 4 positive for Cindy glabrata. We are unable to perform fungal susceptibilities at our [place] therefore these will be sent out to [email or web address] for susceptibility. Started on micafungin 100 mg IV every 24 hours which we will continue. Source of candidemia appears to be UTI/urinary colonization with recent instrumentation for cystoscopy on November 14, 2024 Recommend to obtain TTE to assess for any vegetations for endocarditis Repeat blood cultures taken on admission on November 20, 2024. If repeat cultures continue to be positive, will additionally likely need TRE as patient does have a pacemaker Currently no port or other longstanding IV access. Will need ophthalmology exam after discharge to assess for any endophthalmitis as a complication. Currently he denies any visual changes. 2. Cindy UTI: IV micafungin as above 3. S/p TAVR (transcatheter aortic valve replacement), bioprosthetic: 4. Pacemaker: 5. Chronic bacteriuria: Chronic bacteriuria, no current signs of UTI. Has a Rutherford catheter in place for urinary retention. Mild hematuria noted in bag. Known to have bladder mass which is currently being further evaluated. PDMP PDMP Reviewed: Not Reviewed Coding Level of Care Code Acute Code for Chg Fwd High MDM includes number and complexity of problems actively addressed during encounter, amount and/or complexity of data reviewed/ordered and described risk of complication, morbidity or mortality of management as documented Diagnoses Candidemia B37.7 Cindy UTI B37.49 S/p TAVR (transcatheter aortic valve replacement), bioprosthetic Z95.3 Pacemaker Z95.0 Chronic bacteriuria R82.71
[2024-11-21] MEDS: micafungin 100 MG in sodium chloride 0.9% (plus) 100 ML IV (17:20)
[2024-11-21] MEDS: pantoprazole 40 mg SDV IVP (17:20)
[2024-11-21] MEDS: MELATONIN 3 MG TABLET 9 MG PO (20:55)
[2024-11-22] VITALS (9 sets, daily range): BP systolic 119–148; BP diastolic 74–87; PULSE 80–88; RESP 16–17; TEMP 36.4–36.6; O2SAT 90–96
[2024-11-22 05:07] LABS: Hematocrit 32.4 % (37-53); Hemoglobin 10.50 g/dL (11.27-16.99); Mean Corpuscular HGB Conc 32.4 g/dL (30-55); Mean Corpuscular Hemoglobin 32.1 pg (27-33); Mean Corpuscular Volume 99.1 fl (82-101); Nucleated Red Blood Cells % 0 %; Platelet Count 283 10^3/cmm (157-399); Red Blood Count 3.27 10^6/uL (3.85-5.65); White Blood Count 6.61 10^3/uL (3.29-11.43)
[2024-11-22 05:28] LABS: Alanine Aminotransferase 34 U/L (0-41); Albumin Level 3.9 g/dL (3.5-5.2); Alkaline Phosphatase 45 U/L (40-130); Anion Gap 17.8 (5-19); Aspartate Amino Transferase 30 U/L (0-40); Blood Urea Nitrogen 22 mg/dL (8-23); Calcium 8.8 mg/dL (8.5-10.5); Carbon Dioxide 24 mmol/L (22-29); Chloride 102 mmol/L (98-107); Creatinine Clr Calc Pharmacy 46.6104; Globulin 3.0 g/dL (1.3-4.6); Glucose 167 mg/dL (65-115); Magnesium 2.3 mg/dL (1.7-2.3); Osmolality Calculated 297 mOsm/kg (285-295); Potassium 3.8 mmol/L (3.5-5.1); Sodium 140 mmol/L (136-145); Total Protein 6.9 g/dL (6.6-8.7)
[2024-11-22] MEDS: metoprolol succinate ER (24 HR) 25 mg Tablet 12.5 MG PO (05:44)
--- NOTE | 2024-11-22 10:43 | PC.SOCIAL ---
IMM Update pg 2 of IMM Updated and reviewed w/ patient. Copy provided and copy dated, initialed and placed in chart.
--- NOTE | 2024-11-22 16:02 | P.PN_ITS ---
Subjective 2 Subjective: Infectious disease progress note. No new complaints today. Afebrile. Medications: Reviewed: Yes Vitals/I&O/Wt Last Vital Signs Temp 97.6 F 11/22/24 11:27 Pulse 87 11/22/24 11:27 Resp 17 11/22/24 11:27 BP 119/74 11/22/24 11:27 Pulse Ox 93 11/22/24 11:27 O2 Del Method Room Air 11/22/24 11:27 11/22/24 11/22/24 11/22/24 06:59 14:59 22:59 Intake Total 960 / 960 Output Total 250 / 1200 Balance -250 / -660 960 / 960 Weight last 48 hrs Weight 100.425 kg Weight 100.017 kg Weight 100.017 kg Weight 97.296 kg Physical Exam 2 Narrative: General: No acute distress, AO x3 HEENT: PERRLA, pupils bilaterally equal and reactive, pallors not present Chest: Normal vesicular breath sounds, no added sounds, equal good air entry bilaterally CVS: S1-S2 regular, no murmurs, no tachycardia, no gallops, no rubs Abdomen: Soft, nontender, no organomegaly, bowel sounds present Neuro: No focal deficits, no facial deformity, AO x3, power 5/5 in all limbs Urinary Catheter Management: Rutherford: Cath Placed During This Visit: yes Reason for Continuing Indwelling Catheter: Acute Urinary Retention or Obstruction Urinary Catheter Date of Insertion: 11/20/24 Urinary Catheter Time of Insertion: 18:42 Data 11/22/24 04:38 11/22/24 04:38 Micro: Microbiology 11/20/24 18:15 Urine Culture - Final Urine,Clean Catch 11/21/24 05:15 Blood Culture - Preliminary Blood NEGATIVE TO DATE 11/21/24 05:10 Blood Culture - Preliminary Blood NEGATIVE TO DATE 11/20/24 18:25 Blood Culture - Preliminary Blood NEGATIVE TO DATE 11/20/24 18:30 Blood Culture - Preliminary Blood NEGATIVE TO DATE A&P Assessment and plan 1. Candidemia: 84-year-old male admitted to the hospital for candidemia with recent history as noted above. Blood culture from November 15, 2024 reported 1 out of 4 positive for Keiry glabrata. We are unable to perform fungal susceptibilities at our [facility] therefore these will be sent out to [facility] for susceptibility. Started on micafungin 100 mg IV every 24 hours which we will continue. Source of candidemia appears to be UTI/urinary colonization with recent instrumentation for cystoscopy on November 14, 2024 Recommend to obtain TTE to assess for any vegetations for endocarditis Repeat blood cultures taken on admission on November 20, 2024. If repeat cultures continue to be positive, will additionally likely need TRE as patient does have a pacemaker Currently no port or other longstanding IV access. Will need ophthalmology exam after discharge to assess for any endophthalmitis as a complication. Currently he denies any visual changes. 2. Keiry UTI: IV micafungin as above 3. S/p TAVR (transcatheter aortic valve replacement), bioprosthetic: 4. Pacemaker: 5. Chronic bacteriuria: Chronic bacteriuria, no current signs of UTI. Has a Rutherford catheter in place for urinary retention. Mild hematuria noted in bag. Known to have bladder mass which is currently being further evaluated. November 22, 2024 Blood culture from 11/15 remains with Keiry glabrata; per discussion with micro lab, isolate will be sent to [facility] today for sensitivity. I anticipate results to be back in 3 to 4 days. Blood culture from November 20 thus far negative to date. Echocardiogram taken, results are currently pending. If cultures remain negative from November 20 and echocardiogram does not show any signs of endocarditis and Keiry glabrata isolated from the blood is confirmed to be azole sensitive, plan to discharge patient with oral fluconazole versus voriconazole. If isolate shows resistance, will plan discharge on IV micafungin. Recommend total duration of treatment to be 6 weeks from clearance of candidemia given presence of cardiac hardware by way of pacemaker and bioprosthetic AV valve. PDMP PDMP Reviewed: Not Reviewed Attestations 2 Medical Necessity Statement*: Continue IV micafungin Coding Level of Care Code Acute Code for Chg Fwd Diagnoses Candidemia B37.7 Keiry UTI B37.49 S/p TAVR (transcatheter aortic valve replacement), bioprosthetic Z95.3 Pacemaker Z95.0 Chronic bacteriuria R82.71
[2024-11-22] MEDS: pantoprazole 40 mg SDV IVP (17:22)
--- NOTE | 2024-11-22 17:22 | P.PN_ITS ---
Subjective 2 Subjective: No acute events overnight. Patient has remained hemodynamically stable and afebrile. In good spirits. Slightly frustrated for being in the hospital. Energy levels are improving. Vitals/I&O/Wt Last Vital Signs Temp 97.8 F 11/22/24 16:00 Pulse 83 11/22/24 16:00 Resp 17 11/22/24 16:00 BP 131/87 11/22/24 16:00 Pulse Ox 95 11/22/24 16:00 O2 Del Method Room Air 11/22/24 16:00 11/22/24 11/22/24 11/22/24 06:59 14:59 22:59 Intake Total 960 / 960 Output Total 250 / 1200 875 / 875 Balance -250 / -660 960 / 960 -875 / 85 Weight last 48 hrs Weight 100.425 kg Weight 100.017 kg Weight 100.017 kg Physical Exam 2 Narrative: General: No acute distress, AO x3, pleasant HEENT: PERRLA, pupils bilaterally equal and reactive Chest: Normal vesicular breath sounds, no added sounds, equal good air entry bilaterally CVS: S1-S2 regular, no murmurs, no tachycardia, no gallops, no rubs Abdomen: Soft, nontender, no organomegaly, bowel sounds present Neuro: No focal deficits, no facial deformity, AO x3, power 5/5 in all limbs Urinary Catheter Management: Rutherford: Cath Placed During This Visit: yes Reason for Continuing Indwelling Catheter: Acute Urinary Retention or Obstruction Urinary Catheter Date of Insertion: 11/20/24 Urinary Catheter Time of Insertion: 18:42 Data 11/22/24 04:38 11/22/24 04:38 Micro: Microbiology 11/20/24 18:15 Urine Culture - Final Urine,Clean Catch 11/21/24 05:15 Blood Culture - Preliminary Blood NEGATIVE TO DATE 11/21/24 05:10 Blood Culture - Preliminary Blood NEGATIVE TO DATE 11/20/24 18:25 Blood Culture - Preliminary Blood NEGATIVE TO DATE 11/20/24 18:30 Blood Culture - Preliminary Blood NEGATIVE TO DATE A&P Assessment and plan 1. Fungemia: Blood culture from 11/15 1 out of 4 bottles positive for budding yeast. No speciation identification available for now. Urine culture also from 11/15 positive for yeast. Empirically start on IV micafungin for now. Stat blood culture. Will most likely repeat blood culture in AM. Will consult infectious disease for further recommendations. Patient has a history of TAVR and possible pacemaker. He will most likely need further evaluation and workup to rule out endocarditis. 2. Systolic and diastolic CHF, chronic: 3. Other cardiomyopathy: 4. S/p TAVR (transcatheter aortic valve replacement), bioprosthetic: 5. Coronary arteriosclerosis after coronary artery bypass graftin. Essential hypertension: 7. Bladder outlet obstruction: 8. Keiry UTI: 9. Mass of urinary bladder determined by ultrasound: Plan: History of systolic and diastolic congestive heart failure due to cardiomyopathy: Last echocardiogram from 08/30 shows EF 35% with moderately increased LA size, moderate MR. Currently patient is euvolemic. Hold off on IV fluids and diuretics for now. Strict input output charting, daily weights. Hypertension: Goal blood pressure less than 140/90 mmHg. Patient takes Entresto, metoprolol at home. For now continue with metoprolol. Hold off on Entresto for now. CKD: Creatinine more recently since August 2023 has been elevated with baseline seem to be around 1.5-1.7. Currently 1.6. Continue to monitor BMP daily. Bladder outlet obstruction: Follows up with urology as an outpatient. Bladder scan. If needed will plan for Rutherford catheterization. Will discuss with the patient and possibly start on Flomax. Atrial fibrillation: Continue with home dose of metoprolol and amiodarone. Switch to Lovenox 1 mg/kg body weight daily for now. Hold off on Eliquis. History of CAD: No active chest pain. Check A1c, lipid panel. Continue with home dose of Plavix, statin. Full code. Confirmed with patient. His friend will be DPOA. Will request case management for DPOA paperwork in AM. Cardiac diet. Protonix for PUD prophylaxis Full dose Lovenox will be sufficient for DVT prophylaxis. Plan for the day: Awaiting repeat culture results. Awaiting sensitivities from [facility] from culture from 11/15. Appreciate ID recommendations. Continue IV micafungin. If cultures remain negative in next 2 to 3 days can plan for PICC line placement for IV antifungals for 6 weeks going forward. Echocardiogram pending. Concerns for infective endocarditis. Goal blood pressure less than 140/90 mmHg. Blood pressure at goal. Continue with Flomax. Creatinine has remained stable. Can plan for voiding trial in next 24 to 48 hours. PDMP PDMP Reviewed: Not Reviewed Attestations 2 Medical Necessity Statement*: Requires further hospitalization for management of fungemia in setting of fungal UTI Coding Level of Care Code 95732 Diagnoses Fungemia B49 Systolic and diastolic CHF, chronic I50.42 Other cardiomyopathy I42.8 Cardiomyopathy type: other S/p TAVR (transcatheter aortic valve replacement), bioprosthetic Z95.3 Coronary arteriosclerosis after coronary artery bypass grafting I25.810 Essential hypertension I10 Bladder outlet obstruction N32.0 Keiry UTI B37.49 Mass of urinary bladder determined by ultrasound N32.89
[2024-11-22] MEDS: micafungin 100 MG in sodium chloride 0.9% (plus) 100 ML IV (17:23)
[2024-11-22] MEDS: MELATONIN 3 MG TABLET 9 MG PO (21:40)
[2024-11-23 00:11] VITALS: BP 144/71; PULSE 85; TEMP 36.6; O2SAT 93
[2024-11-23 04:00] VITALS: BP 158/74; PULSE 87; RESP 18; TEMP 36.5; O2SAT 95
[2024-11-23 05:05] LABS: Hematocrit 34.9 % (37-53); Hemoglobin 11.40 g/dL (11.27-16.99); Mean Corpuscular HGB Conc 32.7 g/dL (30-55); Mean Corpuscular Hemoglobin 32.2 pg (27-33); Mean Corpuscular Volume 98.6 fl (82-101); Nucleated Red Blood Cells % 0 %; Platelet Count 320 10^3/cmm (157-399); Red Blood Count 3.54 10^6/uL (3.85-5.65); White Blood Count 7.52 10^3/uL (3.29-11.43)
[2024-11-23 05:10] LABS: Alanine Aminotransferase 41 U/L (0-41); Albumin Level 4.4 g/dL (3.5-5.2); Alkaline Phosphatase 49 U/L (40-130); Blood Urea Nitrogen 18 mg/dL (8-23); Calcium 9.9 mg/dL (8.5-10.5); Carbon Dioxide 26 mmol/L (22-29); Chloride 99 mmol/L (98-107); Creatinine Clr Calc Pharmacy 54.4865; Globulin 3.4 g/dL (1.3-4.6); Glucose 128 mg/dL (65-115); Magnesium 2.4 mg/dL (1.7-2.3); Osmolality Calculated 288 mOsm/kg (285-295); Sodium 137 mmol/L (136-145); Total Protein 7.8 g/dL (6.6-8.7)
[2024-11-23 05:13] LABS: Anion Gap 16.7 (5-19); Aspartate Amino Transferase 39 U/L (0-40); Potassium 4.7 mmol/L (3.5-5.1)
[2024-11-23] MEDS: metoprolol succinate ER (24 HR) 25 mg Tablet 12.5 MG PO (05:54)
[2024-11-23 07:38] VITALS: BP 131/77; PULSE 85; RESP 15; TEMP 36.4; O2SAT 95
[2024-11-23 11:38] VITALS: BP 133/84; PULSE 89; RESP 16; TEMP 36.6; O2SAT 95
[2024-11-23 11:46] VITALS: BMI 30.6
--- NOTE | 2024-11-23 14:23 | P.PN_ITS ---
Subjective 2 Subjective: Anxious to go home. Very disappointed that the plans were changed for him to stay through Monday. Very uncomfortable in bed. Originally asking for a sleep aid other than melatonin. However he would rather have the Rutherford catheter out and requested that we did not give him a sleeping pill in case he would have to get up to go the bathroom through the night. Vitals/I&O/Wt Last Vital Signs Temp 97.9 F 11/23/24 11:38 Pulse 89 11/23/24 11:38 Resp 16 11/23/24 11:38 BP 133/84 11/23/24 11:38 Pulse Ox 95 11/23/24 11:38 O2 Del Method Room Air 11/23/24 11:38 11/22/24 11/23/24 11/23/24 22:59 06:59 14:59 Intake Total 780 / 1740 240 / 240 Output Total 1175 / 1175 500 / 1675 Balance -395 / 565 -500 / 65 240 / 240 Weight last 48 hrs Weight 93.95 kg Weight 100.425 kg Physical Exam 2 Narrative: Alert and oriented seen sitting in a chair waiting for different bed for comfort. Heart is regular normal S1-S2 without murmurs clicks gallops or rubs Lungs clear to auscultation without wheezes rales or rhonchi Abdomen soft nontender nondistended positive bowel sounds Extremities no clubbing cyanosis or edema Back he has a moderate kyphosis Urinary Catheter Management: Rutherford: Cath Placed During This Visit: yes Reason for Continuing Indwelling Catheter: Chronic Indwelling Urinary Catheter on Admission Urinary Catheter Date of Insertion: 11/20/24 Urinary Catheter Time of Insertion: 18:42 Data 11/23/24 04:02 11/23/24 04:02 A&P Assessment and plan 1. 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 Patient on micafungin. The plan is for IV micafungin as an outpatient with PICC line. For him to go home Monday or Monday. Patient was under the impression this was good to be done over the weekend. I am unsure of this change I only know what previous doctor signed out to me. Blood culture on 11/20/2024 and 11/21/2024 were all negative. 2. Systolic and diastolic CHF, chronic: Last echocardiogram from 08/30 shows EF 35% with moderately increased LA size, moderate MR. Currently patient is euvolemic. Hold off on IV fluids and diuretics for now. Strict input output charting, daily weights. 3. Other cardiomyopathy: 4. S/p TAVR (transcatheter aortic valve replacement), bioprosthetic: 5. Coronary arteriosclerosis after coronary artery bypass graftin. Essential hypertension: Patient takes Entresto, metoprolol at home. For now continue with metoprolol. Hold off on Entresto for now. 7. Bladder outlet obstruction: 8. Mass of urinary bladder determined by ultrasound: Plan: CKD: Creatinine more recently since August 2023 has been elevated with baseline seem to be around 1.5-1.7. Currently 1.6. Continue to monitor BMP daily. Bladder outlet obstruction: Follows up with urology as an outpatient. patient requests discontinuation of Rutherford. Patient has been started on Flomax for a few days prior. Will DC Rutherford. Atrial fibrillation: Continue with home dose of metoprolol and amiodarone. S plan to resume Eliquis since planning DC. History of CAD: No active chest pain. Continue with home dose of Plavix, statin. Full code. Confirmed with patient. His friend will be DPOA. Per prior physician DPOA paperwork was requested. Cardiac diet. Protonix for PUD prophylaxis Full dose Lovenox will be sufficient for DVT prophylaxis. PDMP PDMP Reviewed: Not Reviewed Attestations 2 Medical Necessity Statement*: Patient requires continued hospitalization for treatment of fungemia Coding Level of Care Code Acute Code for [facility] Fwd Diagnoses Fungemia B49 Systolic and diastolic CHF, chronic I50.42 Other cardiomyopathy I42.8 Cardiomyopathy type: other S/p TAVR (transcatheter aortic valve replacement), bioprosthetic Z95.3 Coronary arteriosclerosis after coronary artery bypass grafting I25.810 Essential hypertension I10 Bladder outlet obstruction N32.0 Mass of urinary bladder determined by ultrasound N32.89
[2024-11-23 15:23] VITALS: BP 125/78; PULSE 85; RESP 15; TEMP 36.8; O2SAT 96
[2024-11-23] MEDS: micafungin 100 MG in sodium chloride 0.9% (plus) 100 ML IV (17:25)
--- NOTE | 2024-11-23 18:01 | PM.PN ---
Subjective Subjective: ID progress note No acute interim events afebrile, hemodynamically stable Medications: Reviewed: Yes Vitals/I&O/Wt Last Vital Signs Temp 98.3 F 11/23/24 15:23 Pulse 85 11/23/24 15:23 Resp 15 11/23/24 15:23 BP 125/78 11/23/24 15:23 Pulse Ox 96 11/23/24 15:23 O2 Del Method Room Air 11/23/24 15:23 11/23/24 11/23/24 11/23/24 06:59 14:59 22:59 Intake Total 240 / 240 Output Total 500 / 1675 Balance -500 / 65 240 / 240 Weight last 48 hrs Weight 93.95 kg Weight 100.425 kg Physical Exam Narrative: General: No acute distress, AO x3 HEENT: PERRLA, pupils bilaterally equal and reactive, pallors not present Chest: Normal vesicular breath sounds, no added sounds, equal good air entry bilaterally CVS: S1-S2 regular, no murmurs, no tachycardia, no gallops, no rubs Abdomen: Soft, nontender, no organomegaly, bowel sounds present Neuro: No focal deficits, no facial deformity, AO x3, power 5/5 in all limbs Urinary Catheter Management: Rutherford: Cath Placed During This Visit: yes Reason for Continuing Indwelling Catheter: Chronic Indwelling Urinary Catheter on Admission Urinary Catheter Date of Insertion: 11/20/24 Urinary Catheter Time of Insertion: 18:42 Data 11/23/24 04:02 11/23/24 04:02 A&P Assessment and plan 1. Candidemia: 84-year-old male admitted to the hospital for candidemia with recent history as noted above. Blood culture from November 15, 2024 reported 1 out of 4 positive for Keiry glabrata. We are unable to perform fungal susceptibilities at our [facility] therefore these will be sent out to [facility] for susceptibility. Started on micafungin 100 mg IV every 24 hours which we will continue. Source of candidemia appears to be UTI/urinary colonization with recent instrumentation for cystoscopy on November 14, 2024 Recommend to obtain TTE to assess for any vegetations for endocarditis Repeat blood cultures taken on admission on November 20, 2024. If repeat cultures continue to be positive, will additionally likely need TRE as patient does have a pacemaker Currently no port or other longstanding IV access. Will need ophthalmology exam after discharge to assess for any endophthalmitis as a complication. Currently he denies any visual changes. 2. Keiry UTI: IV micafungin as above 3. S/p TAVR (transcatheter aortic valve replacement), bioprosthetic: 4. Pacemaker: 5. Chronic bacteriuria: Chronic bacteriuria, no current signs of UTI. Has a Rutherford catheter in place for urinary retention. Mild hematuria noted in bag. Known to have bladder mass which is currently being further evaluated. Plan: November 22, 2024 Blood culture from 11/15 remains with Keiry glabrata; per discussion with micro lab, isolate will be sent to [facility] today for sensitivity. I anticipate results to be back in 3 to 4 days. Blood culture from November 20 thus far negative to date. Echocardiogram taken, results are currently pending. If cultures remain negative from November 20 and echocardiogram does not show any signs of endocarditis and Keiry glabrata isolated from the blood is confirmed to be azole sensitive, plan to discharge patient with oral fluconazole versus voriconazole. If isolate shows resistance, will plan discharge on IV micafungin. Recommend total duration of treatment to be 6 weeks from clearance of candidemia given presence of cardiac hardware by way of pacemaker and bioprosthetic AV valve. November 23, 2024 Patient's blood cx remains negative from 11/20 and 11/21 thus far. fungal isolate from 11/15 sent to [facility] yesterday. TTE without gross vegetations. Given quick clearance of bacteremia, and clinical stability, suspected urinary source, will defer TRE for now. However will plan treat for at least 6 weeks since prosthetic AV valve and PPM in place. If isolate is azole sensitive, will use fluconazole vs voriconazole. If isolate is azole resistant, will plan on Picc line and iv micafungin for 6 weeks. Since we do not have a timeframe on when we will receive susceptibility results from [facility] and patient is stable, eager to be discharged home, we will plan on infusion of micafungin tomorrow morning in the hospital(monday). Thereafter he may be discharged to continue once daily micafungin infusions via peripheral iv at the infusion center when it opens on Monday until sensitivity results are available next week. Thereafter decisions for PICC line, iv vs po to be made as outpatient depending on sensitivity results. Patient agreebale with this plan and will return to infusion center daily next week. PDMP PDMP Reviewed: Not Reviewed Attestations Medical Necessity Statement*: need to infuse micafungin Coding Level of Care Code Acute Code for Chg Fwd Diagnoses Candidemia B37.7 Keiry UTI B37.49 S/p TAVR (transcatheter aortic valve replacement), bioprosthetic Z95.3 Pacemaker Z95.0 Chronic bacteriuria R82.71
[2024-11-23 20:00] VITALS: BP 135/77; PULSE 82; RESP 18; TEMP 36.9; O2SAT 93
[2024-11-24 04:00] VITALS: BP 143/89; PULSE 85; RESP 18; TEMP 36.4; O2SAT 93
[2024-11-24] MEDS: metoprolol succinate ER (24 HR) 25 mg Tablet 12.5 MG PO (04:19)
[2024-11-24 08:00] VITALS: BP 129/82; PULSE 73; RESP 18; TEMP 36.6; O2SAT 95
--- NOTE | 2024-11-24 09:30 | P.PN_ITS ---
Subjective 2 Subjective: ID progress note c/o RUQ pain today, which is new since this morning. TTP RUQ Medications: Reviewed: Yes Vitals/I&O/Wt Last Vital Signs Temp 97.9 F 11/24/24 08:00 Pulse 73 11/24/24 08:00 Resp 18 11/24/24 08:00 BP 129/82 11/24/24 08:00 Pulse Ox 95 11/24/24 08:00 O2 Del Method Room Air 11/24/24 08:00 11/23/24 11/24/24 11/24/24 22:59 06:59 14:59 Intake Total 220 / 460 250 / 710 Balance 220 / 460 250 / 710 Weight last 48 hrs Weight 93.95 kg Physical Exam 2 Narrative: General: No acute distress, AO x3 HEENT: PERRLA, pupils bilaterally equal and reactive, pallors not present Chest: Normal vesicular breath sounds, no added sounds, equal good air entry bilaterally CVS: S1-S2 regular, no murmurs, no tachycardia, no gallops, no rubs Abdomen: Soft, tender to palptation RUQ, no organomegaly, bowel sounds present Neuro: No focal deficits, no facial deformity, AO x3, power 5/5 in all limbs Urinary Catheter Management: Rutherford: Cath Placed During This Visit: yes Reason for Continuing Indwelling Catheter: Chronic Indwelling Urinary Catheter on Admission Urinary Catheter Date of Insertion: 11/20/24 Urinary Catheter Time of Insertion: 18:42 Data 11/23/24 04:02 11/23/24 04:02 A&P Assessment and plan 1. Candidemia: 84-year-old male admitted to the hospital for candidemia with recent history as noted above. Blood culture from November 15, 2024 reported 1 out of 4 positive for Keiry glabrata. We are unable to perform fungal susceptibilities at our [facility] therefore these will be sent out to [facility] for susceptibility. Started on micafungin 100 mg IV every 24 hours which we will continue. Source of candidemia appears to be UTI/urinary colonization with recent instrumentation for cystoscopy on November 14, 2024 Recommend to obtain TTE to assess for any vegetations for endocarditis Repeat blood cultures taken on admission on November 20, 2024. If repeat cultures continue to be positive, will additionally likely need TRE as patient does have a pacemaker Currently no port or other longstanding IV access. Will need ophthalmology exam after discharge to assess for any endophthalmitis as a complication. Currently he denies any visual changes. 2. Keiry UTI: IV micafungin as above 3. S/p TAVR (transcatheter aortic valve replacement), bioprosthetic: 4. Pacemaker: 5. Chronic bacteriuria: Chronic bacteriuria, no current signs of UTI. Has a Rutherford catheter in place for urinary retention. Mild hematuria noted in bag. Known to have bladder mass which is currently being further evaluated. Plan: November 22, 2024 Blood culture from 11/15 remains with Keiry glabrata; per discussion with micro lab, isolate will be sent to [facility] today for sensitivity. I anticipate results to be back in 3 to 4 days. Blood culture from November 20 thus far negative to date. Echocardiogram taken, results are currently pending. If cultures remain negative from November 20 and echocardiogram does not show any signs of endocarditis and Keiry glabrata isolated from the blood is confirmed to be azole sensitive, plan to discharge patient with oral fluconazole versus voriconazole. If isolate shows resistance, will plan discharge on IV micafungin. Recommend total duration of treatment to be 6 weeks from clearance of candidemia given presence of cardiac hardware by way of pacemaker and bioprosthetic AV valve. November 23, 2024 Patient's blood cx remains negative from 11/20 and 11/21 thus far. fungal isolate from 11/15 sent to [facility] yesterday. TTE without gross vegetations. Given quick clearance of bacteremia, and clinical stability, suspected urinary source, will defer TRE for now. However will plan treat for at least 6 weeks since prosthetic AV valve and PPM in place. If isolate is azole sensitive, will use fluconazole vs voriconazole. If isolate is azole resistant, will plan on Picc line and iv micafungin for 6 weeks. Since we do not have a timeframe on when we will receive susceptibility results from [facility] and patient is stable, eager to be discharged home, we will plan on infusion of micafungin tomorrow morning in the hospital(monday). Thereafter he may be discharged to continue once daily micafungin infusions via peripheral iv at the infusion center when it opens on Monday until sensitivity results are available next week. Thereafter decisions for PICC line, iv vs po to be made as outpatient depending on sensitivity results. Patient agreebale with this plan and will return to infusion center daily next week. November 24, 2024 Blood cx remains negative from 11/20 and 11/21. Pending susceptibility from [facility] for keiry glabrata noted in blood on 11/15. URine cx with keiry krusei. Patient has had micafungin infusion this morning. He is c/o RUQ pain and tenderness today which he attributes to having an injection in the abdomen. No obvious hematoma on exam. Patient was ordered for US gall bladder to evaluate for cholecytsitis however he refused as he is eager to return home. CT abdomen/pelvis ordered instead. Patient may be discharged from ID standpoint if no acute problems noted on abdominal CT. He needs ophthalmology referral at discharge. PDMP PDMP Reviewed: Not Reviewed Attestations 2 Medical Necessity Statement*: per admitting Coding Level of Care Code Acute Code for [facility] Fwd Diagnoses Candidemia B37.7 Keiry UTI B37.49 S/p TAVR (transcatheter aortic valve replacement), bioprosthetic Z95.3 Pacemaker Z95.0 Chronic bacteriuria R82.71
[2024-11-24] MEDS: micafungin 100 MG in sodium chloride 0.9% (plus) 100 ML IV (09:40)
--- NOTE | 2024-11-24 10:28 | P.DS_ITS ---
Discharge Providers Date of Admission: 11/20/24 16:16 Date of Discharge: November 24, 2024 Attending Provider at Admission: Rafael Vale MD Attending Provider at Discharge: Andrés Humphreys DO Primary Care Provider: Destin Chung MD Diagnoses at Discharge Discharge Diagnosis 1. Candidemia: 2. Keiry UTI: 3. S/p TAVR (transcatheter aortic valve replacement), bioprosthetic: 4. Pacemaker: 5. Chronic bacteriuria: Reason for Visit Reason for Visit: IV antifungal antibiotics Brief History: Thong Salgado Jr is a 84 year old male with past medical history of atrial fibrillation chronic Eliquis, CAD post CABG, post TAVR, thoracic aortic aneurysm, hyperlipidemia, congestive heart failure with EF 35%, outlet obstruction and recurrent UTI for which she has been on multiple antibiotics recently within last 1 month. He was recently in the hospital from 11/15 to 11/17 when he was treated for possible congestive heart failure and UTI. His urine culture from previous admission came back positive for fungus and blood culture 1 out of 4 bottles from 11/15 is growing budding yeast hence he was called back to the hospital. Hospital Course Hospital Course Patient was admitted for fungemia. He was placed on micafungin. Infectious disease consult was placed. Blood cultures from 11/15/2024 grew 1 out of 4 positive for Keiry glabrata. Unfortunately were unable to perform fungal susceptibilities of our institution and the sensitivities were sent out to [facility]. The source of the candidemia appears to be UTI/colonization most likely due to recent instrumentation for cystoscopy on 11/14/2024. A transthoracic echo was obtained showing no evidence of vegetations. Repeat blood cultures were taken on admission on November 20, 2024 these blood cultures are negative. With sensitivities pending and not available for anywhere from [address] Nixon from infectious disease has arranged outpatient micafungin at our infusion center. Patient will receive a dose today in the hospital and then sta rt outpatient infusion tomorrow. Dr. Nixon's overall plan would be that once the sensitivities are back if patient can be treated with fluconazole orally the patient can be switched and if not if he would continue to need IV PICC line will be placed as an outpatient sometime next week once sensitivities are back. She plans to continue a course for total of 6 weeks. The patient is discharged in improved condition with outpatient therapy arranged. Physical Exam Narrative: Alert and oriented seen sitting in a chair waiting for different bed for comfort. Heart is regular normal S1-S2 without murmurs clicks gallops or rubs Lungs clear to auscultation without wheezes rales or rhonchi Abdomen soft nontender nondistended positive bowel sounds Extremities no clubbing cyanosis or edema Back he has a moderate kyphosis Urinary Catheter Management: Rutherford: Cath Placed During This Visit: yes Reason for Continuing Indwelling Catheter: Chronic Indwelling Urinary Catheter on Admission Urinary Catheter Date of Insertion: 11/20/24 Urinary Catheter Time of Insertion: 18:42 Discharge Data Studies Completed and Pending Completed Studies During Hospitalization Category Date Time Status XR chest 1V portable [id number] Routine Exams 11/20/24 17:32 Completed CV. echo complete* [id number] Routine Ultrasound 11/21/24 12:47 Completed Pending at discharge Category Date Time Status Blood Culture AM LABS Lab 11/21/24 05:15 Results Blood Culture Stat Lab 11/20/24 18:25 Results Miscellaneous Test Routine Lab 11/22/24 14:17 Received US gall bladder [id number] Routine Ultrasound 11/24/24 10:23 Ordered Radiology Impressions Chest X-Ray 11/20/24 17:32 IMPRESSION: As above. Laboratory Results WBC 7.52 10^3/uL (3.29-11.43) 11/23/24 04:02 RBC 3.54 10^6/uL (3.85-5.65) L 11/23/24 04:02 Hgb 11.40 g/dL (11.27-16.99) 11/23/24 04:02 Hct 34.9 % (37-53) L 11/23/24 04:02 MCV 98.6 fl (82-101) 11/23/24 04:02 MCH 32.2 pg (27-33) 11/23/24 04:02 MCHC 32.7 g/dL (30-55) 11/23/24 04:02 RDW 13.2 % (12.1-15.1) 11/23/24 04:02 Plt Count 320 10^3/cmm (157-399) 11/23/24 04:02 MPV 9.9 fL (7.4-10.4) 11/23/24 04:02 Neut % (Auto) 69.7 % 11/23/24 04:02 Lymph % (Auto) 18.5 % 11/23/24 04:02 [place] % (Auto) 8.9 % 11/23/24 04:02 Eos % (Auto) 1.9 % 11/23/24 04:02 Baso % (Auto) 0.7 % 11/23/24 04:02 Neut # (Auto) 5.25 10^3/uL (1.8-7.7) 11/23/24 04:02 Lymph # (Auto) 1.4 10^3/uL (0.8-4.8) 11/23/24 04:02 [place] # (Auto) 0.7 10^3/uL (0.2-0.9) 11/23/24 04:02 Eos # (Auto) 0.1 10^3/uL (0.0-0.8) 11/23/24 04:02 Baso # (Auto) 0.1 10^3/uL (0.0-0.1) 11/23/24 04:02 Nucleated RBC % (auto) 0 % 11/23/24 04:02 Nucleated RBCs # 0.0 /100WBC 11/23/24 04:02 Sodium 137 mmol/L (136-145) 11/23/24 04:02 Potassium 4.7 mmol/L (3.5-5.1) 11/23/24 04:02 Chloride 99 mmol/L (98-107) 11/23/24 04:02 Carbon Dioxide 26 mmol/L (22-29) 11/23/24 04:02 Anion Gap 16.7 (5-19) 11/23/24 04:02 BUN 18 mg/dL (8-23) 11/23/24 04:02 Creatinine 1.2 mg/dL (0.7-1.2) 11/23/24 04:02 GFR Calculation Not Reportable 11/23/24 04:02 Glucose 128 mg/dL (65-115) H 11/23/24 04:02 Estimat Average Glucose 151 11/20/24 18:25 Hemoglobin A1c 6.9 % (4.0-6.0) H 11/20/24 18:25 Calculated Osmolality 288 mOsm/kg (285-295) 11/23/24 04:02 Lactic Acid 1.5 mmol/L (0.5-2.2) 11/20/24 18: Calcium 9.9 mg/dL (8.5-10.5) 11/23/24 04:02 Phosphorus 3.7 mg/dL (2.5-4.5) 11/23/24 04:02 Magnesium 2.4 mg/dL (1.7-2.3) H 11/23/24 04:02 Iron 36 ug/dL (59-158) L 11/20/24 18: TIBC 241 mcg/dl 11/20/24 18: % Saturation 14.9 % (20-50) L 11/20/24: Unsat Iron Binding 205 ug/dL (112-347) 11/20/24: Total Bilirubin 0.4 mg/dL (0.15-1.2) 11/23/24 04:02 AST 39 U/L (0-40) 11/23/24 04:02 ALT 41 U/L (0-41) 11/23/24 04:02 Alkaline Phosphatase 49 U/L (40-130) 11/23/24 04:02 Total Protein 7.8 g/dL (6.6-8.7) 11/23/24 04:02 Albumin 4.4 g/dL (3.5-5.2) 11/23/24 04:02 Globulin 3.4 g/dL (1.3-4.6) 11/23/24 04:02 Triglycerides 147 mg/dL (0-150) 11/21/24 05:10 Cholesterol 96 mg/dL (0-200) 11/21/24 05:10 LDL Cholesterol, Calc 44 mg/dL (50-129) L 11/21/24 05:10 HDL Cholesterol 23 mg/dL (60-100) L 11/21/24 05:10 LDL/HDL Ratio 1.91 RATIO (0.00-3.22) 11/21/24 05:10 Cholesterol/HDL Ratio 4.17 mg/dL (1.0-5.00) 11/21/24 05:10 Vitamin B12 848 pg/mL (232-1245) 11/20/24 18: Folate 9.4 ng/mL (4.5-32.2) 11/21/24 05:10 Procalcitonin 0.10 ng/mL (0-0.5) 11/21/24 05:10 TSH Cancelled 11/20/24 18:25 Free T4 0.91 ng/dL (0.82-1.77) 11/20/24 18:25 Free T3 2.1 PG/ML (2.0-4.4) 11/20/24 18:25 Urine Color Yellow (Yellow) 11/20/24 18:15 Urine Appearance Clear (CLEAR) 11/20/24 18:15 Urine pH 5.5 (5-7) 11/20/24 18:15 Ur Specific [place] 1.019 (1.005-1.030) 11/20/24 18:15 Urine Protein 1+ (Negative) A 11/20/24 18:15 Urine Glucose (UA) 2+ (Normal) H 11/20/24 18:15 Urine Ketones Negative (Negative) 11/20/24 18:15 Urine Blood Trace (Negative) A 11/20/24 18:15 Urine Nitrate Negative (Negative) 11/20/24 18:15 Urine Bilirubin Negative (Negative) 11/20/24 18:15 Urine Urobilinogen 0.2 mg/dL (Negative) 11/20/24 18:15 Ur Leukocyte Esterase 2+ (Negative) A 11/20/24 18:15 Urine RBC 0-2 /hpf (0-2) 11/20/24 18:15 Urine WBC >100 /hpf (0-5) H 11/20/24 18:15 Ur Squamous Epith Cells 0-5 /hpf (0-5) 11/20/24 18:15 Amorphous Sediment Not Reportable 11/19/24 18:15 Urine Bacteria None seen /hpf (NONE) 11/20/24 18:15 Hyaline Casts 4.52 /lpf 11/20/24 18:15 Urine Yeast 2+ /hpf H 11/20/24 18:15 Vitals Last Vital Signs Temp 97.9 F 11/24/24 08:00 Pulse 73 11/24/24 08:00 Resp 18 11/24/24 08:00 BP 129/82 11/24/24 08:00 Pulse Ox 95 11/24/24 08:00 O2 Del Method Room Air 11/24/24 08:00 Discharge Plan Discharge Patient Disposition: Home Condition: Stable Prescriptions: New tamsulosin 0.4 mg Capsule 0.4 mg PO DAILY Qty: 30 0RF micafungin [Mycamine] 100 mg recon soln 100 mg IV Q24H Rx Instructions: administer over 60 mins Continued Tart Kumar Extract 1,000 mg capsule 1,000 mg PO DAILY glucosamine HCl 1,500 mg tablet 1,500 mg PO DAILY ferrous gluconate 324 mg (37.5 mg iron) tablet 324 mg PO DAILY Eliquis 5 mg tablet 5 mg PO BID Qty: 180 3RF amiodarone 200 mg tablet 200 mg PO DAILY Qty: 180 3RF colchicine 0.6 mg tablet 0.6 mg PO DAILY Qty: 90 1RF sulfasalazine 500 mg tablet 1,000 mg PO BID Qty: 360 1RF metoprolol succinate 25 mg tablet extended release 24 hr 12.5 mg PO DAILY clopidogrel [Plavix] 75 mg tablet 75 mg PO DAILY Qty: 90 3RF Mag 64 64 mg tablet,delayed release (DR/EC) 64 mg PO BID Qty: 180 3RF dapagliflozin propanediol [Farxiga] 10 mg tablet 10 mg PO DAILY Qty: 90 3RF spironolactone 25 mg tablet 12.5 mg PO QAM ascorbic acid (vitamin C) [Vitamin C] 500 mg Tablet 500 mg PO DAILY omega-3 fatty acids 1,000 mg Capsule 1,000 mg PO BID vitamin B complex Tablet 1 tab PO DAILY multivit,Ca,rtyc-AA-nrwhym-lut [id number] io-qcc-pbn-mcg Tablet 1 tab PO DAILY potassium citrate 99 mg Capsule 99 mg PO BID furosemide 40 mg tablet See Rx Instructions .ROUTE .COMPLEX Rx Instructions: TAKE 1 TABLET BY MOUTH EVERY MORNING and ONE TABLET SIX hours LATER. sacubitril-valsartan [Entresto] 49-51 mg tablet 1 tab PO BID rosuvastatin 20 mg tablet 20 mg PO BEDTIME levothyroxine 50 mcg tablet 75 mcg PO QAM Qty: 30 0RF No Action fluconazole 100 mg Tablet 200 mg PO DAILY Qty: 12 0RF Pharmacy Intake Coordinator OK for DC: Infectious Disease and Hospitalist Discharge Order = DC NOW: Discharge Order (Routine); Ordered 11/24/24 Ordered By: Andrés Humphreys Referrals: Infectious Disease Group [facility] [Provider Group, Infectious Disease] - 12/31/24 10:30 am Discharge Diet: Advance as tolerated Discharge Activity: Increase activity as tolerated Patient Instructions: Opioid Safety, Patient Portal & Tip Instructions Activity Restrictions/Additional Instructions: Dr. Nixon with infectious disease has made arrangements to for you to receive the micafungin at the infusion center. I expect you to receive a phone call with instructions. You are to maintain your IV. Discharge Attestations Time Spent in Discharge Care*: less than 30 min Status at Discharge: Cognitive status at discharge: cognitively intact , Behavioral status at discharge: cooperative , Quality Metrics Clinical Quality Measures [ No reported AMI, CVA or VTE this stay] Coding Level of Care Code Acute Code for [facility] Fwd Diagnoses Candidemia B37.7 Keiry UTI B37.49 S/p TAVR (transcatheter aortic valve replacement), bioprosthetic Z95.3 Pacemaker Z95.0 Chronic bacteriuria R82.71
--- NOTE | 2024-11-24 11:12 | PC.NURSE ---
Patient refused the Ultra sound of his gallbladder. CT ordered instead.
--- NOTE | 2024-11-24 11:17 | CTR_ITS ---
PROCEDURE INFORMATION: Exam: CT Abdomen Without Contrast Exam date and time: 11/24/2024 11:26 AM Age: 84 years old Clinical indication: Abdominal pain; Localized; Right upper quadrant (ruq); Additional info: Right uppper qud pain TECHNIQUE: Imaging protocol: Computed tomography of the abdomen without contrast. Radiation optimization: All CT scans at this facility use at least one of these dose optimization techniques: automated exposure control; mA and/or kV adjustment per patient size (includes targeted exams where dose is matched to clinical indication); or iterative reconstruction. COMPARISON: CT kidney stone [id number] 08/18/2023 3:36 PM RADIATION DOSE METRICS: Total DLP (mGy-cm): 672.8 FINDINGS: Lungs: Bilateral pulmonary calcified granulomas. Heart: Cardiomegaly is seen. Liver: The liver measures 17.1 cm in length. Too small to characterize right hepatic 6 mm hypodensity. Gallbladder and biliary ducts: Normal. No calcified stones. No ductal dilation. Pancreas: Normal. No ductal dilation. Spleen: Normal. No splenomegaly. Adrenal glands: Normal. No mass. Kidneys: indeterminate left renal posterior hypodense lesion 1.4 x 1.3 cm. Right renal simple cysts. Largest measures 2.1 x 2.1 cm. Stomach and bowel: Diffuse colonic stool material. No small bowel loop dilatation. Intraperitoneal space: Unremarkable. No free air. No significant fluid collection. Vasculature: Mild calcified atherosclerotic changes are seen throughout the abdominal aorta. Lymph nodes: Unremarkable. No enlarged lymph nodes. Bones/joints: Mild diffuse thoracic spine degenerative changes. Soft tissues: Unremarkable. CT/CT abdomen wo con [id number] IMPRESSION: 1. Indeterminate left renal posterior hypodense lesion 1.4 x 1.3 cm. MRI of the kidney without and with contrast for further evaluation is advised. 2. Cardiomegaly. 3. Hepatomegaly. 4. Diffuse colonic stool material. Clinical correlation to exclude constipation is advised. COMMENTS: Consistent with the [employer]'s Incidental Findings Committee white paper (J Am Simona Radiol 2018): Any incidental renal lesion less than 1 cm or classified as too small to characterize, or any incidental cystic renal lesion characterized as simple-appearing, is likely benign. No follow-up imaging is recommended for these lesions per consensus recommendations based on imaging criteria.
[2024-11-24 12:30] VITALS: BP 130/80; PULSE 70; RESP 18; TEMP 36.7; O2SAT 95
--- NOTE | 2024-11-24 12:30 | PC.NURSE ---
Reviewed patient discharge with patient. Patient is A&Ox3. Respirations even and non-labored on room air. Patient has IV still in place for out patient IV antibiotic's. Discussed with patient and friends that he will be called by infusion services with a time to come to the hospital tomorrow for his IV infusion. Patient verbalized understanding. Patient wheel chaired to private car.
== END 2024-11-24 12:30 | disposition home or self-care (01) | DRG 862 ==
PROVIDERS: Admitting Provider Student in an Organized Health Care Education/Training Program; PCP Family Medicine; Visit Provider Internal Medicine
DX: T81.44XA Sepsis following a procedure, initial encounter (principal); B37.7 Candidal sepsis; B37.49 Other urogenital candidiasis; I13.0 Hypertensive heart and chronic kidney disease with heart failure and stage 1 through stage 4 chronic kidney disease, or unspecified chronic kidney disease; I50.42 Chronic combined systolic (congestive) and diastolic (congestive) heart failure; I42.9 Cardiomyopathy, unspecified; N99.89 Other postprocedural complications and disorders of genitourinary system; Y83.8 Other surgical procedures as the cause of abnormal reaction of the patient, or of later complication, without mention of misadventure at the time of the procedure; Y73.0 Diagnostic and monitoring gastroenterology and urology devices associated with adverse incidents; I48.91 Unspecified atrial fibrillation; I25.10 Atherosclerotic heart disease of native coronary artery without angina pectoris; Z95.4 Presence of other heart-valve replacement; Z95.0 Presence of cardiac pacemaker; Z79.01 Long term (current) use of anticoagulants; Z95.1 Presence of aortocoronary bypass graft; N18.30 Chronic kidney disease, stage 3 unspecified; N32.0 Bladder-neck obstruction; I71.20 Thoracic aortic aneurysm, without rupture, unspecified; M05.9 Rheumatoid arthritis with rheumatoid factor, unspecified; Z86.73 Personal history of transient ischemic attack (TIA), and cerebral infarction without residual deficits; Z87.440 Personal history of urinary (tract) infections; E03.9 Hypothyroidism, unspecified; Z79.02 Long term (current) use of antithrombotics/antiplatelets; M10.9 Gout, unspecified; E78.2 Mixed hyperlipidemia
CPT/HCPCS: 36415; 36430; 51702; 51798; 71045; 74150; 76705; 80048; 80053; 80061; 81001; 82607; 82746; 83036; 83540; 83550; 83605; 83690; 83735; 84100; 84145; 84439; 84481; 85014; 85018; 85025; 85378; 85610; 85730; 86850; 86900; 86920; 87040; 87086; 87106; 93005; 93306; 94664; 96372; 96374; 99285; G0379; J1650; J1938; J2248; J2270; J2470; J3010; J7042; J9999; P9016

== ENCOUNTER 2024-11-24 15:10 | Inpatient (IN) | payer MEDICARE, SELFPAY ==
--- OUTSIDE RECORDS SUMMARY | 1999-02-05 19:00 | XMS_ITS | Continuity of Care Document ---
Author Organization [facility] Address [address] [place] [address] Phone Care Team Providers Care Adjustment Supervisor Name Role Phone No Information Unavailable Unavailable Medications Medication Instructions Dosage Effective Dates (start - stop) Status Comments No Drug Therapy Prescribed Advance Directives Directive Yes / No Effective Date File Name No Information Encounters Encounter Description Practice Location Reason(s) For Visit Diagnoses Date Provider Providers Copied on Encounter [facility], [address] [place] [address], [id number], [place] tel:[phone] No Information No Information Family History Family Member Type Diagnosis Age At Onset No Information Payers Payer name Insurance type Covered democrat ID Authoriza tion(s) No Information Social History [...]
--- OUTSIDE RECORDS SUMMARY | 2023-12-02 04:00 | XMS_ITS ---
Author Organization [facility] Address [address] [place] [address] Care Team Providers Care Baby Attendant Name Role Phone Lyle Headley Primary Care Provider Unavailabl e Migration, Provider Unavailable Unavailable REASON FOR VISIT EMR-Shan Encounters Encounter Location Date Provider Diagnosis Migrated_Facility 0 0 12/02/2023 Provider Migration Plan Of Treatment No Information Progress Notes * Thong SALGADODOB:1940 (84 yo M)Acc No.[id number]:12/02/2023 Patient: [place]on ORLANDORyan Thong :1940 A ge:83 Y S ex:Male Address:[address] [place] [address], [place], [address] Subjective: * Chief Complaints: * E MR-Shan * * Date:
--- OUTSIDE RECORDS SUMMARY | 2023-12-03 04:00 | XMS_ITS ---
Author Organization [facility] Address [address] [place] [address] Care Team Providers Care Testing Shaking Shipping Name Role Phone Lyle Headley Primary Care Provider Unavailabl e Migration, Provider Unavailable Unavailable REASON FOR VISIT EMR-Shan Encounters Encounter Location Date Provider Diagnosis Migrated_Facility 0 0 12/03/2023 Provider Migration Plan Of Treatment No Information Progress Notes * Thong SALGADODOB:1940 (84 yo M)Acc No.[id number]:12/03/2023 Patient: Trenton ORLANDORyan Thong :1940 A ge:83 Y S ex:Male Address:[address] [place] [address], [place], [address] Subjective: * Chief Complaints: * E MR-Shan * * Date:
[2024-11-24] VITALS (8 sets, daily range): BP systolic 119–143; BP diastolic 69–87; PULSE 78–90; RESP 16–18; TEMP 36.6–36.7; O2SAT 92–96; BMI 26.6
--- OUTSIDE RECORDS SUMMARY | 2024-11-24 15:15 | XMS_ITS | Continuity of Care Document ---
Author Organization SKYLA Colin Martin [facility] Polly LYousif, [facility] ([facility]) Address [address] [place] [address] Care Team Providers Care Roll Mechanic Name Role Phone JERARDO CHUNG Primary Care Provider Assessment No assessment recorded. Plan of Treatment Reminders Order Date Submit Date Provider Last Modified By Organization Details Last Modified Time Details Appointments OFFICE VISIT TJ 2024 09:45A M Jerardo Chung MD Not available Not available Not available Lab CMP, serum or plasma 2024 025 SHEILA [facility], [address] [facility], [address], [place], [address], 11/18/2024 10:13:51 Referral None recorded . Procedures [...] Available Colin Newman [facility] [address] [facility] [address], [place], [address], 10/28/2024 11:29:59 10/29/19 25 10/28/2024 URINA LYSIS WITH MICRO clarity CLOUDY abnormal Not Available Colin Kuhn [facility] [address] [facility] [address], [place], [address], 10/28/2024 11:29:59 10/29/19 25 10/28/2024 URINA LYSIS WITH MICRO glu 2+ abnormal Not Available Shwa Cr [facility] [address], [place], [address], 10/28/2024 11:29:59 10/29/19 25 10/28/2024 URINA LYSIS WITH MICRO bili NEGATI VE Not Available Shaw Cayla k [facility] [address] [facility] 1, [place], [address], 10/28/2024 11:29:59 10/29/19 25 10/28/2024 URINA LYSIS WITH MICRO ket NEGATI VE Not Available [facility] Cayla k [facility] [address] [facility] 1, [place], [address], 10/28/2024 11:29:59 10/29/19 25 10/28/2024 URINA LYSIS WITH MICRO S.g 1.015 Not Available Shaw Cre ek [facility] [address] [facility], [place], [address], 10/28/2024 11:29:59 10/29/19 25 10/28/2024 URINA LYSIS WITH MICRO pH 6.5 Not Available [facility] Cre [facility] [address] [facility] 1, [place], [address], 10/28/2024 11:29:59 10/29/19 25 10/28/2024 URINA LYSIS WITH MICRO pro 1+ abnormal Not Available Shaw Cr [facility] [address] [facility] 1, [place], [address], 10/28/2024 11:29:59 10/29/19 25 10/28/2024 URINA LYSIS WITH MICRO uro 0.2 E.U./D L Not Available [facility]la [facility] [address] [facility], [place], [address], 10/28/2024 11:29:59 10/29/19 25 10/28/2024 URINA LYSIS WITH MICRO nit NEGATI VE Not Available [facility] Cayla k [facility] [address] [facility], [place], [address], 10/28/2024 11:29:59 10/29/19 25 10/28/2024 URINA LYSIS WITH MICRO blo TRACE- INTACT abnormal Not Available Shaw Cayla k [facility] [address] [facility] 1, [place], [address], 10/28/2024 11:29:59 10/29/19 25 10/28/2024 URINA LYSIS WITH MICRO bryanna 3+ abnormal Not Available Shaw Cr [facility] [address] [facility] 1, [place], [address], 10/28/2024 11:29:59 10/29/19 25 10/28/2024 URINA LYSIS WITH MICRO WBC 100 abnormal > Not Available Shaw Cr [facility] [address] [facility] 1, [place], [address], 10/28/2024 11:29:59 10/29/19 25 10/28/2024 URINA LYSIS WITH MICRO RBC 15-20 abnormal Not Available Shaw Cr [facility] [address] [facility] 1, [place], [address], 10/28/2024 11:29:59 10/29/19 25 10/28/2024 URINA LYSIS WITH MICRO epi cells NEGATI VE Not Available Shaw Cayla k [facility] [address] [facility] 1, [place], [address], 10/28/2024 11:29:59 10/29/19 25 10/28/2024 URINA LYSIS WITH MICRO bacteria TRACE OF AMORPH OUS abnormal Not Available Shaw Cayla k [facility] [address] [facility] 1, [place], [address], 10/28/2024 11:29:59 10/29/19 25 10/28/2024 URINA LYSIS WITH MICRO other NG Not Available [facility] Cre [facility] [address] [facility], [place], [address], 10/28/2024 11:29:59 10/29/19 25 10/30/2024 CULTU RE, URINE , ROUTI NE culture, urine, routine SEE NOTE CULTU RE, URINE , ROUTI NE Micro Numbe r: [id number] Test Statu s: Final Speci men [...] Cultu re Trans port Tube. Not Available [facility] [address] [place], [address], 10/30/2024 02:53:06 11/05/19 25 11/04/2024 CMP (MALE ) glucose 154.0 mg/dL 60.0-9 9.0 high Not Available [facility] [address] [facility], [place], [address], 11/04/2024 11:00:08 11/05/19 25 11/04/2024 CMP (MALE ) BUN (blood urea nitrogen) 23.0 mg/dL 10.0-2 6.0 Not Available [facility] [address] [facility] 1, [place], [address], 11/04/2024 11:00:08 11/05/1911/04/2024 CMP (MALE ) creatinine (serum) 2.1 mg/dL 0.4-1. 5 high Not Available [facility] [address] [facility] 1, [place], [address], 11/04/2024 11:00:08 11/05/1911/04/2024 CMP (MALE ) BUN/creatini ne ratio 10.95 ratio Not Available [facility] [address] [facility] 1, [place], [address], 11/04/2024 11:00:08 11/05/1911/04/2024 CMP (MALE ) eGFR calculated 32.2 Not Available [facility] [address] [facility] 1, [place], [address], 11/04/2024 11:00:08 11/05/1911/04/2024 CMP (MALE ) total protein 8.4 g/dL 6.0-8. 5 Not Available [facility] [address] [facility], [place], [address], 11/04/2024 11:00:08 11/05/1911/04/2024 CMP (MALE ) total bilirubin 0.6 mg/dL 0.2-1. 3 Not Available [facility] [address] Alberto[address] [facility] 1, [place], [address], 11/04/2024 11:00:08 11/05/1911/04/2024 CMP (MALE ) albumin 5.0 g/dL 3.5-5. 5 Not Available [facility] [address] [facility] Carlos Albertoe [facility] 1, [place], [address], 11/04/2024 11:00:08 11/05/1911/04/2024 CMP (MALE ) globulin 3.[address] [facility] [address] [facility], [place], [address], 11/04/2024 11:00:08 11/05/1911/04/2024 CMP (MALE ) AST (SGOT) 34.0 U/L 0.0-46 .0 Not Available [facility] [address] [facility] Mart[facility] 1, [place], [address], 11/04/2024 11:00:08 11/05/1911/04/2024 CMP (MALE ) altv (SGPT) 25.0 U/L 13.0-6 9.0 normal Not Available [facility] [address] [facility] 1, [place], [address], 11/04/2024 11:00:08 11/05/1911/04/2024 CMP (MALE ) A/G ratio 1.5 ratio Not Available Shaw Mahnaz reek [facility] [address] [facility] 1, [place], [address], 11/04/2024 11:00:08 11/05/1911/04/2024 CMP (MALE ) ALP phos 51.0 U/L 30.0-1 40.0 normal Not Available [facility] [address] [facility] 1, [place], [address], 11/04/2024 11:00:08 11/05/1911/04/2024 CMP (MALE ) calcium 9.8 mg/dL 8.4-10 .5 Not Available [facility] [address] [facility] 1, [place], [address], 11/04/2024 11:00:08 11/05/1911/04/2024 CMP (MALE ) sodium 139.0 mmol/ L 136.0- 145.0 Not Available [facility] [address] [facility] 1, [place], [address], 11/04/2024 11:00:08 11/05/1911/04/2024 CMP (MALE ) potassium 4.4 mmol/ L 3.5-5. 1 Not Available [facility] [address] [facility] 1, [place], [address], 11/04/2024 11:00:08 11/05/1911/0411/04/2024 CMP (MALE ) chloride 101.0 mmol/ L 98.0-1 10.0 normal Not Available [facility] [address] [facility] 1, [place], [address], 11/04/2024 11:00:08 11/05/19 25 11/04/2024 CMP (MALE ) C02 23.0 mmol/ L 22.0-3 1.0 Not Available [facility] [address] [facility] 1, [place], [address], 11/04/2024 11:00:08 11/05/1911/04/2024 CMP (MALE ) anion gap 15.0 calc Not Available Colin levyk [facility] [address] [facility] 1, [place], [address], 11/04/2024 11:00:08 11/05/1911/04/2024 CMP (MALE ) osmolality 293.4 calc Not Available [facility] [address] [facility] 1, [place], [address], 11/04/2024 11:00:08 11/05/1911/04/2024 CBC WBC 4.6 x10 4.5-10 .5 Not Available [facility] [address] [facility] 1, [place], [address], 11/04/2024 11:14:48 11/05/1911/04/2024 CBC RBC 3.97 x10 4.30-5 .90 low Not Available [facility] [address] [facility] 1, [place], [address], 11/04/2024 11:14:48 11/05/1911/04/2024 CBC HGB 12.7 g/dL 13.5-1 8.0 low Not Available [facility] [address] [facility] 1, [place], [address], 11/04/2024 11:14:48 11/05/19 25 11/04/2024 CBC HCT 39.9 % 35.0-6 0.0 Not Available [facility] [address] [facility] 1, [place], [address], 11/04/2024 11:14:48 11/05/1911/04/2024 CBC MCV 100.6 fL 80.0-9 9.9 high Not Available [facility] [address] [facility] 1, [place], [address], 11/04/2024 11:14:48 11/05/1911/04/2024 CBC MCH 32.0 pg 27.0-3 2.0 Not Available [facility] [address] [facility] 1, [place], [address], 11/04/2024 11:14:48 11/05/1911/04/2024 CBC MCHC 31.9 g/dL 32.0-3 6.0 low Not Available [facility] [address] [facility] 1, [place], [address], 11/04/2024 11:14:48 11/05/1911/04/2024 CBC RDW 13.1 % 11.5-1 4.5 Not Available [facility] [address] [facility] 1, [place], [address], 11/04/2024 11:14:48 11/05/1911/04/2024 CBC plt 277.0 x10 150.0- 451.0 Not Available [facility] [address] [facility] 1, [place], [address], 11/04/2024 11:14:48 11/05/19 25 11/04/2024 CBC lymphocytes % 29.4 % 20.0-5 0.0 Not Available [facility] [address] [facility] 1, [place], [address], 11/04/2024 11:14:48 11/05/19 25 11/04/2024 CBC granulcytes % 56.8 % 30.0-7 0.0 Not Available [facility] [address] [facility] 1, [place], [address], 11/04/2024 11:14:48 11/05/19 25 11/04/2024 CBC monocytes % 10.0 % 2.0-16 .0 Not Available [facility] [facility] [address] [facility] Mart[facility], [place], [address], 11/04/2024 11:14:48 11/05/19 25 11/04/2024 CBC granulcytes# 2.6 x10 Not Nola ilable [facility] [address] [facility], [place], [address], 11/04/2024 11:14:48 11/05/19 25 11/04/2024 CBC lymphocytes # 1.3 x10 Not Available [facility] [address] [facility], [place], [address], 11/04/2024 11:14:48 11/05/19 25 11/04/2024 CBC monocytes # 0.5 x10 Not Avai lable [facility] [address] [facility], [place], [address], 11/04/2024 11:14:48 11/05/19 25 11/04/2024 HBA1C hemaglobin A1C 6.8 4.2-6. 5 high Not Available [facility] [address] [facility], [place], [address], 11/04/2024 11:14:53 11/05/19 25 11/04/2024 TSH TSH 12.78 uIU/m L 0.49-3 .82 high Not Available [facility] [address], [place], [address], 11/04/2024 12:44:48 11/05/1911/05/2024 URIC ACID uric acid 6.1 mg/dL 4.0-8. 0 normal Thera peuti c targe t for gout patie nts: <6.0 mg/dL Not Available [address] [address] [place], [address], 11/05/2024 13:58:13 11/05/19 25 11/05/2024 ALBUM IN, RANDO M URINE W/CRE ATINI NE creatinine, random urine 48 mg/dL 20-320 normal Not Available [address] [address] [place], [address], 11/05/2024 13:58:14 11/05/19 25 11/05/2024 ALBUM IN, RANDO M URINE W/CRE ATINI NE albumin, urine 16.4 mg/dL see note: normal Refer ence Range : Refer ence Range Not estab lishe d Not Available [address] [address] [place], [address], 11/05/2024 13:58:14 11/05/19 25 11/05/2024 ALBUM IN, [...] a diagn ostic categ ory. Not Available [address] [address] [place], [address], 11/05/2024 13:58:14 11/05/19 25 11/05/2024 C-JESSA CTIVE PROTE IN C-reactive protein <3.0 mg/L <8.0 normal Not Available [facility] [address] [address] [place], [address], 11/05/2024 13:58:14 11/05/19 25 11/05/2024 T4, FREE T4, free 0.8 NG/dL 0.8-1. 8 normal Not Available [facility] - [address], [address], 11/05/2024 13:58:14 11/05/1911/05/2024 B TYPE NATRI URETI [...] 40:97 6-982 . Not Available [facility] [address], [address], 11/05/2024 13:58:15 11/06/19 25 11/05/2024 ESR (eryt hrocy te sedim entat ion rate) , blood SedRate 25 Not Available [facility] ([facility]) [address] [place], [address], 11/04/2024 10:05:43 11/19/1911/18/2024 CMP (MALE ) glucose 177.0 mg/dL 60.0-9 9.0 high Not Available [facility] [address], [address], 11/18/2024 10:13:51 11/19/19 25 11/18/2024 CMP (MALE ) BUN (blood urea nitrogen) 40.0 mg/dL 10.0-2 6.0 high Not Available [facility] [address] [facility] [facility] 1, [place], [address], 11/18/2024 10:13:51 11/19/19 25 11/18/2024 CMP (MALE ) creatinine (serum) 1.9 mg/dL 0.4-1. 5 high Not Available [facility] [address] Alberto[address] [facility] 1, [place], [address], 11/18/2024 10:13:51 11/19/1911/18/2024 CMP (MALE ) BUN/creatini ne ratio 21.05 ratio Not Available [facility] [address] [facility], [place], [address], 11/18/2024 10:13:51 11/19/1911/18/2024 CMP (MALE ) eGFR calculated 36.2 Not Available [facility] [address] [facility], [place], [address], 11/18/2024 10:13:51 11/19/19 25 11/18/2024 CMP (MALE ) total protein 7.5 g/dL 6.0-8. 5 Not Available [facility] [address] [facility], [place], [address], 11/18/2024 10:13:51 11/19/1911/18/2024 CMP (MALE ) total bilirubin 0.9 mg/dL 0.2-1. 3 Not Available [facility] [address] [facility], [place], [address], 11/18/2024 10:13:51 11/19/19 25 11/18/2024 CMP (MALE ) albumin 4.1 g/dL 3.5-5. 5 Not Available [facility] [address] [facility], [place], [address], 11/18/2024 10:13:51 11/19/19 25 11/18/2024 CMP (MALE ) globulin 3.4 calc Not Available Colin Kuhn [facility] [address] [facility] 1, [place], [address], 11/18/2024 10:13:51 11/19/19 25 11/18/2024 CMP (MALE ) AST (SGOT) 63.0 U/L 0.0-46 .0 high Not Available [facility] [address] [facility] 1, [place], [address], 11/18/2024 10:13:51 11/19/19 25 11/18/2024 CMP (MALE ) altv (SGPT) 48.0 U/L 13.0-6 9.0 normal Not Available [facility] [address] [facility] a[facility]rt[facility] 1, [place], [address], 11/18/2024 10:13:51 11/19/19 25 11/18/2024 CMP (MALE ) A/G ratio 1.2 ratio Not Available Colin Joya reek [facility] [address] [facility] 1, [place], [address], 11/18/2024 10:13:51 11/19/19 25 11/18/2024 CMP (MALE ) ALP phos 45.0 U/L 30.0-1 40.0 normal Not Available [facility] [address] [facility] 1, [place], [address], 11/18/2024 10:13:51 11/19/1911/18/2024 CMP (MALE ) calcium 9.0 mg/dL 8.4-10 .5 Not Available [facility] [address] [facility] 1, [place], [address], 11/18/2024 10:13:51 11/19/1911/18/2024 CMP (MALE ) sodium 134.0 mmol/ L 136.0- 145.0 low Not Available [facility] [address], [place], [address], 11/18/2024 10:13:51 11/19/1911/18/2024 CMP (MALE ) potassium 3.3 mmol/ L 3.5-5. 1 low Not Available [facility] [address], [place], [address], 11/18/2024 10:13:51 11/19/1911/18/2024 CMP (MALE ) chloride 98.0 mmol/ L 98.0-1 10.0 normal Not Available [facility] [address], [place], [address], 11/18/2024 10:13:51 11/19/1911/18/2024 CMP (MALE ) C02 26.0 mmol/ L 22.0-3 1.0 Not Available [facility] [address], [place], [address], 11/18/2024 10:13:51 11/19/1911/18/2024 CMP (MALE ) anion gap 10.0 calc Not Available Shaw Mahnaz levyk [facility] [address], [place], [address], 11/18/2024 10:13:51 11/19/1911/18/2024 CMP (MALE ) osmolality 290.2 calc Not Available [facility] [address], [place], [address], 11/18/2024 10:13:51 Result Notes None recorded. Problems [...] ; acuity set as *; Not Available [facility] 3 03:10:27 Benign hyperten pauline [id number] Completed 202010/22/2020 HTN - Status is Inactive ; 10/23/19 9:23AM by Nicole Chung PA-C, Annotati on/Adden dum; Promoted ; acuity set as *; Not Available [facility] 3 03:10:27 General examinat ion of patient Completed 202111/18/2021 GENERAL MEDICAL EXAM - Status is Inactive ; Recorded 11/19/19 12:44PM by Janis Jesus LPN, Annotati on/Adden dum; Promoted ; acuity set as *; Not Available [facility] 3 03:10:27 Body mass index 25-29 - overweig [id number] Active 2022 BODY MASS INDEX (BMI) 28.0-28. 9, ADULT; Recorded 03/11/19 23 8:52AM by Janis Jesus LPN, Office Visit; Promoted ; acuity set as *; BMI 28.0-28. 9,ADULT - Status is Inactive ; Recorded 01/05/20 6:50AM by Naomi Long LPN, Annotati on/Adden dum; Promoted ; acuity set as *; ; Start Date : 01/05/20 Radha garcía, [facility] 5 23:20:42 Aortic stenosis , non-rheu matic 380216275 Active 2022 SEVERE AORTIC STENOSIS ; Recorded [...] ; Start Date : 11/20/19 Radha garcía [facility] 5 23:20:43 Anemia 061905369 Active 2022 ANEMIA; Recorded 03/11/19 8:52AM by Janis Jesus LPN, Office Visit; Promoted ; acuity set as *; Radha garcía [facility] 5 23:20:43 Carotid artery stenosis 91910392 Active 2022 Radha garcía [facility] 5 23:20:43 Congesti ve heart failure 98720588 Active 2022 JANIS garcía [facility] 3 10:21:22 Nonexuda tive age-rela french macular degenera tion 605393660 Active 2022 JANIS garcía [facility] 3 10:22:00 History of peripher al arterial occlusiv e disease 325510007 Completed 202205/06/2024 Radha garcía [facility] 5 23:20:02 Essentia l hyperten pauline 43950487 Active 2022 JANIS garcía [facility] 5 11:22:59 Hyperlip idemia 82439175 Active 2022 JANIS JESUS null, [facility] 5 11:23:22 Angina pectoris 847338841 Completed 202205/06/2024 Radha Garcia null, [facility] 5 23:20:02 Chronic systolic heart failure 842609322 Active 2022 JANIS JESUS null, [facility] 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 5 23:20:43 Nonexuda tive age-rela french macular degenera tion 692755941 Active 2022 Radha Garcia null, [facility] 5 23:20:43 Atrial fibrilla tion 56479891 Active 2023 JANIS JEUSS null, [facility] 5 11:22:20 Low back pain 007352722 Active 2023 Radha Garcia null, [facility] 5 23:20:43 Leukopen ia 82747482 Active 2023 Radha Garcia null, [facility] 5 23:20:43 Chronic diastoli c heart failure 159674681 Active 2023 JANIS JESUS null, [facility] 5 11:22:34 Acute kidney injury 17865287 Completed 202305/06/2024 Radhakori KelleyRadha null, [facility] 5 23:20:02 Thyroid stimulat ing hormone level above referenc e range 994420685 Active 2023 Radhakori KelleyRadha null, [facility] 5 23:20:43 Infectio n of sebaceou s cyst 272375370 Completed 202305/06/2024 Radha Garcia null, [facility] 5 23:20:54 Rheumato id arthriti s 08869710 Active 2024 Radha Garcia null, [facility] 5 23:20:43 Peripher al vascular disease 680458513 Active 2024 Radha garcía, [facility] 5 23:20:43 Acute on chronic diastoli c heart failure 430381274 Active 2024 Radha Garcia [facility], [facility] 5 23:20:43 Chronic kidney disease due to type 2 diabetes mellitus 14727364806 8 Active 2024 Radha Garcia [facility] 5 12:18:38 Age related macular degenera tion 133885190 Active 2024 Radha Garcia null, [facility] 5 12:18:31 Chronic kidney disease stage 3B 034060941 Active 2024 JANIS JESUS [facility], [facility] 5 10:33:25 Maksim hematuri a 522635618 Active 2024 Radha Garcia [facility], [facility] 5 16:48:14 Prostati tis 1366505 Active 2024 [facility] 5 16:48:20 Dysuria 61171820 Active 2024 [facility] 5 14:02:50 Acute urinary tract infectio n 955949613 Active 2024 JANIS JESUS [facility] 5 14:43:11 Problem Notes None recorded. Procedures Surgical History Date Name Laterality Status Provider Name and Address Organization Details Recorded Time coronary artery bypass grafts x 2 completed [facility] 08/03/2022 10:25:38 tonsillectomy completed [facility], BradL.CCherelle 08/03/2022 10:25:47 Mohs surgery completed [facility], LCherelleL.CC[facility]lle 08/03/2022 10:26:13 replacement of aortic valve completed [facility], LC[facility]lleL.CC[facility] 08/03/2022 10:26:52 appendectomy completed [facility] 05/06/2024 23:21:08 cardiac pacemaker procedure completed [facility] [...] Not available Not available Not available 05/11/2022 81862 8001 SNOMED [facility] 3 09:16:51 1013 allopurin ol medicatio n Not available Not available Not available 05/11/2022 519 RxNorm Radha garcía, [facility] 3 09:17:18 1014 ciproflox acin medicatio n Not available Not available Not available 05/11/2022 2551 RxNorm Radha garcía, [facility] 3 09:17:30 42515 ciproflox acin hydrochlo ride medicatio n dizziness Not available Not available 09/03/2022 32303 RxNorm React ion: Dizzi ness; Comme nt: Recor ded 03/11 8:52A M by Candelaria Miles on, MAILROOM MESSENGER, Offic e Visit ; Promo french; Danielle knapp ce: *; ; [facility] 4 10:04:36 54608 lisinopri l medicatio n cough Not available Not available 09/03/2022 [id number] RxNorm JANIS garcía, [facility] 4 10:13:16 [id number] simvastat in medicatio n Not available Not available Not available 09/03/2022 [id number] RxNorm JANIS garcía, [facility] 4 10:13:20 Medications Name Sig Start [...] Tobacco Smoking Status Never Smoker JANIS garcía, [facility] 08/03/2022 10:25:09 What Was The Date Of Your Most Recent Tobacco Screening? 08/07/2024 [email or web address] Information not available 08/07/2024 Sex: Unknown Functional Status Question Answer Note LastModified by Organization D etails LastModified Time Do you or have you ever used any other forms of tobacco or nicotine? No [email or web address] Information not available 04/26/2023 Do you or have you ever used any nicotine-free cigarettes, vape, or chewing tobacco? No [email or web address] Information not available 09/20/2023 Mental Status None recorded. Family History Relationship Description Onset Age of this Age Resolved Age Notes LastModified by Organization Details LastModified Time Father Cerebrovascu lar accident [email or web address] Not available 10:13:59 Mother Coronary atherosclero sis [email or web address] Not available 05/01 10:14:13 Medical History No medical history recorded. Immunizations Vaccine Type Date Status Note Provider Nam e and Address Organization Details Recorded Time Influenza, split virus, trivalent, preservative 8 completed JANIS garcía, [facility] 04/26/2023 10:04:31 Influenza, split virus, trivalent, preservative 6 completed Not Available [facility] 09/03/2022 02:52:04 Influenza, split virus, trivalent, preservative 7 completed Not Available [facility] 09/03/2022 02:52:04 pneumococcal polysaccharide PPV23 7 completed Not Available [facility] 09/03/2022 02:52:04 Pneumococcal conjugate PCV 13 7 completed Not Available [facility] 09/03/2022 02:52:04 zoster live 7 completed Not Available [facility] 09/03/2022 02:52:05 Influenza, adjuvanted, trivalent, PF 5 completed JANIS JESUS null, [facility] 11/19/2024 11:55:16 Influenza, high-dose, quadrivalent, PF 1 completed JANIS JESUS null, [facility] 04/26/2023 10:04:31 Influenza, high-dose, quadrivalent, PF 2 completed JANIS JESUS null, [facility] 04/26/2023 10:04:31 COVID-19, mRNA, LNP-S, PF, 30 mcg/0.3 mL dose 1 completed JANIS JESUS null, [facility] 04/26/2023 10:04:31 COVID-19, mRNA, LNP-S, PF, 30 mcg/0.3 mL dose 1 completed JANIS JESUS null, [facility] 04/26/2023 10:04:31 COVID-19, mRNA, LNP-S, PF, 30 mcg/0.3 mL dose 2 completed JANIS JESUS null, [facility] 04/26/2023 10:04:31 COVID-19, mRNA, LNP-S, PF, 30 mcg/0.3 mL dose 1 completed JANIS JESUS null, [facility] 04/26/2023 10:04:31 COVID-19, mRNA, LNP-S, bivalent, PF, 30 mcg/0.3 mL dose 2 [facility] 10:04:31 COVID-19, mRNA, LNP-S, PF, myriam-sucrose, 30 mcg/0.3 mL 3 [facility] 04/26/[facility]23 10:04:31 Tdap 3 completed JANIS JESUS null, [facility] 04/26/2023 10:04:31 Influenza, high-dose, trivalent, PF 8 completed JANIS JESUS null, [facility] 04/26/2023 10:04:31 Hep A, adult 3 completed JANIS JESUS null, [facility] 04/26/2023 10:04:31 COVID-19, mRNA, LNP-S, PF, myriam-sucrose, 30 mcg/0.3 mL 4 completed JANIS JESUS null, [facility] 02/14/2024 11:20:35 Influenza, adjuvanted, trivalent, PF 4 completed Radha Garcia null, [facility] 11/30/2023 12:00:34 Past Encounters Encounter ID Performer Location Encounter Start Date Encounter Closed Date Diagnosis/Indication Diagnosis SNOMED-CT Code Diagnosis ICD10 Code Diagnosis IMO Codes Diagnosis Note [id number] Jerardo Chnug MD [facility] ([facility]) [address] [place] [phone] 10/21/2024 12:18:56 10/21/2024 13:52:57 Mass of urinary bladder 713755293 N32.89 [id number] suspicious for posterior bladder mass.this patient is more likely than not going to want to follow conservati ve treatment. however, without cystoscopy it is very hard to guide him. he is not currently bleeding. he requires anticoagul ation for cardiac treatment. will continue that for now. 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 [id number] 08 E11.22 [id number] Jerardo Chung MD [facility] ([facility]) [address] [place] [address] 11/18/2024 09:24:42 11/19/2024 09:33:24 Congestive heart failure 82883725 I50.9 Health Concerns Section Related Observation LastModified by Organization Detai ls LastModified Time None Recorded Concern Status LastModified by Organization Details LastModified Time None Recorded Payers Encounter Date Sequence Insurance Name Policy Number Policy Davies Covered Member ID Davies Member ID Guarantor Name 11/18/2024 1 [employer] (MEDICARE REPLACEMENT/A DVANTAGE - PPO) Thong Salgado Jr [id number] Thong Salgado
--- OUTSIDE RECORDS SUMMARY | 2024-11-24 15:15 | XMS_ITS | Continuity of Care Document ---
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 [email or web address] Not available 11/19/2024 09:58:38 Plan of Treatment [...] Available [facility] [address] [facility] [address], [place], [address], 10/28/2024 11:29:59 10/29/1910/28/2024 URINA LYSIS WITH MICRO clarity CLOUDY abnormal Not Available Colin K[facility]n [facility] [address], [place], [address], 10/28/2024 11:29:59 10/29/1910/28/2024 URINA LYSIS WITH MICRO glu 2+ abnormal Not Available [facility] [address], [place], [address], 10/28/2024 11:29:59 10/29/19 25 10/28/2024 URINA LYSIS WITH MICRO bili NEGATI VE Not Available [facility] Cayla k [facility] [address], [place], [address], 10/28/2024 11:29:59 10/29/19 25 10/28/2024 URINA LYSIS WITH MICRO ket NEGATI VE Not Available [facility] [address] [facility] 1, [place], [address], 10/28/2024 11:29:59 10/29/19 25 10/28/2024 URINA LYSIS WITH MICRO S.g 1.015 Not Available [facility] [address] [facility], [place], [address], 10/28/2024 11:29:59 10/29/19 25 10/28/2024 URINA LYSIS WITH MICRO pH 6.5 Not Available [facility] [address] [facility] 1, [place], [address], 10/28/2024 11:29:59 10/29/19 25 10/28/2024 URINA LYSIS WITH MICRO pro 1+ abnormal Not Available [facility] [address] [facility] 1, [place], [address], 10/28/2024 11:29:59 10/29/19 25 10/28/2024 URINA LYSIS WITH MICRO uro 0.2 E.U./D L Not Available [facility] [address] [facility], [place], [address], 10/28/2024 11:29:59 10/29/19 25 10/28/2024 URINA LYSIS WITH MICRO nit NEGATI VE Not Available [facility] [address] [facility], [place], [address], 10/28/2024 11:29:59 10/29/19 25 10/28/2024 URINA LYSIS WITH MICRO blo TRACE- INTACT abnormal Not Available [facility] [address] [facility], [place], [address], 10/28/2024 11:29:59 10/29/19 25 10/28/2024 URINA LYSIS WITH MICRO bryanna 3+ abnormal Not Available [facility] [address] [facility], [place], [address], 10/28/2024 11:29:59 10/29/19 25 10/28/2024 URINA LYSIS WITH MICRO WBC 100 abnormal > Not Available [facility] [address] [facility], [place], [address], 10/28/2024 11:29:59 10/29/19 25 10/28/2024 URINA LYSIS WITH MICRO RBC 15-20 abnormal Not Available [facility] [address] [facility], [place], [address], 10/28/2024 11:29:59 10/29/19 25 10/28/2024 URINA LYSIS WITH MICRO epi cells NEGATI VE Not Available [facility] [address] [facility], [place], [address], 10/28/2024 11:29:59 10/29/19 25 10/28/2024 URINA LYSIS WITH MICRO bacteria TRACE OF AMORPH OUS abnormal Not Available [facility] [address] [facility], [place], [address], 10/28/2024 11:29:59 10/29/19 25 10/28/2024 URINA LYSIS WITH MICRO other NG Not Available [facility] [address] [facility], [place], [address], 10/28/2024 11:29:59 10/29/1910/30/2024 CULTU RE, URINE , ROUTI NE culture, urine, routine SEE NOTE CULTU RE, URINE , ROUTI NE Micro Numbe r: [id number] Test Statu s: Final Speci men [...] Cultu re Trans port Tube. Not Available [facility] [address] [place], [address], 10/30/2024 02:53:06 11/05/1911/04/2024 CMP (MALE ) glucose 154.0 mg/dL 60.0-9 9.0 high Not Available [facility] [address] [facility], [place], [address], 11/04/2024 11:00:08 11/05/1911/04/2024 CMP (MALE ) BUN (blood urea nitrogen) 23.0 mg/dL 10.0-2 6.0 Not Available [facility] [address] [facility], [place], [address], 11/04/2024 11:00:08 11/05/1911/04/2024 CMP (MALE ) creatinine (serum) 2.1 mg/dL 0.4-1. 5 high Not Available [facility] [address] [facility], [place], [address], 11/04/2024 11:00:08 11/05/1911/04/2024 CMP (MALE ) BUN/creatini ne ratio 10.95 ratio Not Available [facility] [address] [facility], [place], [address], 11/04/2024 11:00:08 11/05/1911/04/2024 CMP (MALE ) eGFR calculated 32.2 Not Available [facility] [address] [facility], [place], [address], 11/04/2024 11:00:08 11/05/1911/04/2024 CMP (MALE ) total protein 8.4 g/dL 6.0-8. 5 Not Available [facility] [address] [facility], [place], [address], 11/04/2024 11:00:08 11/05/1911/04/2024 CMP (MALE ) total bilirubin 0.6 mg/dL 0.2-1. 3 Not Available [facility] [address] [facility] 1, [place], [address], 11/04/2024 11:00:08 11/05/1911/04/2024 CMP (MALE ) albumin 5.0 g/dL 3.5-5. 5 Not Available [facility] [address] [facility] 1, [place], [address], 11/04/2024 11:00:08 11/05/1911/04/2024 CMP (MALE ) globulin 3.[address] [facility] [address] [facility], [place], [address], 11/04/2024 11:00:08 11/05/1911/04/2024 CMP (MALE ) AST (SGOT) 34.0 U/L 0.0-46 .0 Not Available [facility] [address] [facility] Mart[facility] 1, [place], [address], 11/04/2024 11:00:08 11/05/1911/04/2024 CMP (MALE ) altv (SGPT) 25.0 U/L 13.0-6 9.0 normal Not Available [facility] [address] [facility], [place], [address], 11/04/2024 11:00:08 11/05/1911/04/2024 CMP (MALE ) A/G ratio 1.5 ratio Not Available Shaw Mahnaz levyk [facility] [address] [facility], [place], [address], 11/04/2024 11:00:08 11/05/1911/04/2024 CMP (MALE ) ALP phos 51.0 U/L 30.0-1 40.0 normal Not Available [facility] [address] [facility], [place], [address], 11/04/2024 11:00:08 11/05/1911/04/2024 CMP (MALE ) calcium 9.8 mg/dL 8.4-10 .5 Not Available [facility] [address] [facility], [place], [address], 11/04/2024 11:00:08 11/05/1911/04/2024 CMP (MALE ) sodium 139.0 mmol/ L 136.0- 145.0 Not Available [facility] [address] [facility], [place], [address], 11/04/2024 11:00:08 11/05/1911/04/2024 CMP (MALE ) potassium 4.4 mmol/ L 3.5-5. 1 Not Available [facility] [address] [facility], [place], [address], 11/04/2024 11:00:08 11/05/1911/04/2024 CMP (MALE ) chloride 101.0 mmol/ L 98.0-1 10.0 normal Not Available [facility] [address] [facility] 1, [place], [address], 11/04/2024 11:00:08 11/05/19 25 11/04/2024 CMP (MALE ) C02 23.0 mmol/ L 22.0-3 1.0 Not Available [facility] [address] [facility] 1, [place], [address], 11/04/2024 11:00:08 11/05/19 25 11/04/2024 CMP (MALE ) anion gap 15.0 calc Not Available Colin levyk [facility] [address] [facility] 1, [place], [address], 11/04/2024 11:00:08 11/05/19 25 11/04/2024 CMP (MALE ) osmolality 293.4 calc Not Available [facility] [address] [facility] 1, [place], [address], 11/04/2024 11:00:08 11/05/1911/04/2024 CBC WBC 4.6 x10 4.5-10 .5 Not Available [facility] [address] [facility] 1, [place], [address], 11/04/2024 11:14:48 11/05/1911/04/2024 CBC RBC 3.97 x10 4.30-5 .90 low Not Available [facility] [address] [facility] 1, [place], [address], 11/04/2024 11:14:48 11/05/1911/04/2024 CBC HGB 12.7 g/dL 13.5-1 8.0 low Not Available [facility] [address] [facility] 1, [place], [address], 11/04/2024 11:14:48 11/05/1911/04/2024 CBC HCT 39.9 % 35.0-6 0.0 Not Available [facility] [address] Mart[address] [facility] 1, [place], [address], 11/04/2024 11:14:48 11/05/1911/04/2024 CBC MCV 100.6 fL 80.0-9 9.9 high Not Available [facility] [address] Mart[address] [facility] 1, [place], [address], 11/04/2024 11:14:48 11/05/1911/04/2024 CBC MCH 32.0 pg 27.0-3 2.0 Not Available [facility] [address] Mart[address] [facility] 1, [place], [address], 11/04/2024 11:14:48 11/05/1911/04/2024 CBC MCHC 31.9 g/dL 32.0-3 6.0 low Not Available [facility] [address] Mart[address] [facility] 1, [place], [address], 11/04/2024 11:14:48 11/05/1911/04/2024 CBC RDW 13.1 % 11.5-1 4.5 Not Available [facility] [address] [facility] 1, [place], [address], 11/04/2024 11:14:48 11/05/1911/04/2024 CBC plt 277.0 x10 150.0- 451.0 Not Available [facility] [address] [facility] 1, [place], [address], 11/04/2024 11:14:48 11/05/1911/04/2024 CBC lymphocytes % 29.4 % 20.0-5 0.0 Not Available [facility] [address] Mart[address] [facility] 1, [place], [address], 11/04/2024 11:14:48 11/05/19 25 11/04/2024 CBC granulcytes % 56.8 % 30.0-7 0.0 Not Available [facility] [address] Mart[address] [facility] 1, [place], [address], 11/04/2024 11:14:48 11/05/1911/04/2024 CBC monocytes % 10.0 % 2.0-16 .0 Not Available [facility] [address] [facility] 1, [place], [address], 11/04/2024 11:14:48 11/05/1911/04/2024 CBC granulcytes# 2.6 x10 Not Nola ilable [facility] [address] [facility] 1, [place], [address], 11/04/2024 11:14:48 11/05/1911/04/2024 CBC lymphocytes # 1.3 x10 Not Available [facility] [address] [facility], [place], [address], 11/04/2024 11:14:48 11/05/1911/04/2024 CBC monocytes # 0.5 x10 Not Avai lable [facility] [address] [facility], [place], [address], 11/04/2024 11:14:48 11/05/1911/04/2024 HBA1C hemaglobin A1C 6.8 4.2-6. 5 high Not Available [facility] [address] [facility] 1, [place], [address], 11/04/2024 11:14:53 11/05/19 25 11/04/2024 TSH TSH 12.78 uIU/m L 0.49-3 .82 high Not Available [facility] [address] [facility], [place], [address], 11/04/2024 12:44:48 11/05/1911/05/2024 URIC ACID uric acid 6.1 mg/dL 4.0-8. 0 normal Thera peuti c targe t for gout patie nts: <6.0 mg/dL Not Available [facility] [address] [place], [address], 11/05/2024 13:58:13 11/05/19 25 11/05/2024 ALBUM IN, RANDO M URINE W/CRE ATINI NE creatinine, random urine 48 mg/dL 20-320 normal Not Available [facility] [place] [address] [place], [address], 11/05/2024 13:58:14 11/05/19 25 11/05/2024 ALBUM IN, RANDO M URINE W/CRE ATINI NE albumin, urine 16.4 mg/dL see note: normal Refer ence Range : Refer ence Range Not estab lishe d Not Available [facility] , [place], [address], 11/05/2024 13:58:14 11/05/19 25 11/05/2024 ALBUM IN, [...] a diagn ostic categ ory. Not Available [facility] [place] [address] [place], [address], 11/05/2024 13:58:14 11/05/19 25 11/05/2024 C-JESSA CTIVE PROTE IN C-reactive protein <3.0 mg/L <8.0 normal Not Available [facility] [address] [place], [address], 11/05/2024 13:58:14 11/05/19 25 11/05/2024 T4, FREE T4, free 0.8 NG/dL 0.8-1. 8 normal Not Available [facility] [address] [address] , [place], [address], 11/05/2024 13:58:14 11/05/19 25 11/05/2024 B TYPE [...] 40:97 6-982 . Not Available [facility] [address] [facility] [place], [address], 11/05/2024 13:58:15 11/06/19 25 11/05/2024 ESR (eryt hrocy te sedim entat ion rate) , blood SedRate 25 Not Available [facility] [address] [place], [address], 11/04/2024 10:05:43 11/19/19 25 11/18/2024 CMP (MALE ) glucose 177.0 mg/dL 60.0-9 9.0 high Not Available [facility] [address], [address], 11/18/2024 10:13:51 11/19/19 25 11/18/2024 CMP (MALE ) BUN (blood urea nitrogen) 40.0 mg/dL 10.0-2 6.0 high Not Available [facility] [address] Martí[address] [facility] 1, [place], [address], 11/18/2024 10:13:51 11/19/19 25 11/18/2024 CMP (MALE ) creatinine (serum) 1.9 mg/dL 0.4-1. 5 high Not Available [facility] [address] [facility], [place], [address], 11/18/2024 10:13:51 11/19/1911/18/2024 CMP (MALE ) BUN/creatini ne ratio 21.05 ratio Not Available [facility] [address] [facility] 1, [place], [address], 11/18/2024 10:13:51 11/19/1911/18/2024 CMP (MALE ) eGFR calculated 36.2 Not Available [facility] [address] [facility], [place], [address], 11/18/2024 10:13:51 11/19/1911/18/2024 CMP (MALE ) total protein 7.5 g/dL 6.0-8. 5 Not Available [facility] [address] [facility], [place], [address], 11/18/2024 10:13:51 11/19/19 25 11/18/2024 CMP (MALE ) total bilirubin 0.9 mg/dL 0.2-1. 3 Not Available [facility] [address] [facility], [place], [address], 11/18/2024 10:13:51 11/19/19 25 11/18/2024 CMP (MALE ) albumin 4.1 g/dL 3.5-5. 5 Not Available [facility] [address] [facility], [place], [address], 11/18/2024 10:13:51 11/19/19 25 11/18/2024 CMP (MALE ) globulin 3.4 calc Not Available Colin pascalk [facility] [address] [facility], [place], [address], 11/18/2024 10:13:51 11/19/19 25 11/18/2024 CMP (MALE ) AST (SGOT) 63.0 U/L 0.0-46 .0 high Not Available [facility] [address] [facility], [place], [address], 11/18/2024 10:13:51 11/19/1911/18/2024 CMP (MALE ) altv (SGPT) 48.0 U/L 13.0-6 9.0 normal Not Available [facility] [address] [facility], [place], [address], 11/18/2024 10:13:51 11/19/19 25 11/18/2024 CMP (MALE ) A/G ratio 1.2 ratio Not Available Colin levyk [facility] [address] [facility], [place], [address], 11/18/2024 10:13:51 11/19/19 25 11/18/2024 CMP (MALE ) ALP phos 45.0 U/L 30.0-1 40.0 normal Not Available [facility] [address] [facility], [place], [address], 11/18/2024 10:13:51 11/19/19 25 11/18/2024 CMP (MALE ) calcium 9.0 mg/dL 8.4-10 .5 Not Available [facility] [address] [facility], [place], [address], 11/18/2024 10:13:51 11/19/19 25 11/18/2024 CMP (MALE ) sodium 134.0 mmol/ L 136.0- 145.0 low Not Available [facility] [address], [place], [address], 11/18/2024 10:13:51 11/19/1911/18/2024 CMP (MALE ) potassium 3.3 mmol/ L 3.5-5. 1 low Not Available [facility] [address] [facility], [place], [address], 11/18/2024 10:13:51 11/19/1911/18/2024 CMP (MALE ) chloride 98.0 mmol/ L 98.0-1 10.0 normal Not Available [facility] [address] [facility], [place], [address], 11/18/2024 10:13:51 11/19/1911/18/2024 CMP (MALE ) C02 26.0 mmol/ L 22.0-3 1.0 Not Available [facility] [address] [facility], [place], [address], 11/18/2024 10:13:51 11/19/1911/18/2024 CMP (MALE ) anion gap 10.0 calc Not Available Colin Joya camk [facility] [address] [facility], [place], [address], 11/18/2024 10:13:51 11/19/1911/18/2024 CMP (MALE ) osmolality 290.2 calc Not Available [facility] [address] [facility], [place], [address], 11/18/2024 10:13:51 Result Notes None recorded. Problems [...] [facility] 3 03:10:27 Benign hyperten pauline [id number] Completed 202010/22/2020 HTN - Status is Inactive ; 10/23/19 9:23AM by Nicole Chung PA-C, Annotati on/Adden dum; Promoted ; acuity set as *; Not Available [facility] 3 03:10:27 General examinat ion of patient Completed 202111/18/2021 GENERAL MEDICAL EXAM - Status is Inactive ; Recorded 11/19/19 12:44PM by Janis Jesus LPN, Annotati on/Adden dum; Promoted ; acuity set as *; Not Available [facility] 3 03:10:27 [facility] 25-29 [id number] Active 2022 BODY MASS INDEX (BMI) 28.0-28. 9, ADULT; Recorded 03/11/19 23 8:52AM by Janis Jesus LPN, Office Visit; Promoted ; acuity set as *; BMI 28.0-28. 9,ADULT - Status is Inactive ; Recorded 01/05/20 22 6:50AM by Naomi Long LPN, Annotati on/Adden dum; Promoted ; acuity set as *; ; Start Date : 01/05/20 Radha garcía, [facility].C 5 23:20:42 Aortic stenosis , non-rheu matic 917898114 Active 2022 SEVERE AORTIC STENOSIS ; Recorded [...] ; Start Date : 11/20/19 Radha garcía [facility] 5 23:20:43 Anemia 513468289 Active 2022 ANEMIA; Recorded 03/11/19 8:52AM by Janis Jesus LPN, Office Visit; Promoted ; acuity set as *; Radha garcía [facility] 5 23:20:43 Carotid artery stenosis 27296791 Active 2022 Radha garcía [facility] 5 23:20:43 Congesti ve heart failure 11031578 Active 2022 JANIS garcía [facility] 3 10:21:22 Nonexuda tive age-rela french macular degenera tion 083366500 Active 2022 JANIS garcía [facility] 3 10:22:00 History of peripher al arterial occlusiv e disease 517135932 Completed 202205/06/2024 Radha garcía [facility] 5 23:20:02 [facility] l hyperten pauline 44428386 Active 2022 JANIS garcía [facility] 5 11:22:59 Hyperlip idemia 30762448 Active 2022 JANIS garcía, [facility] 5 11:23:22 Angina pectoris 754761763 Completed 202205/06/2024 Radha Garcia null, [facility] 5 23:20:02 Chronic systolic heart failure 753388033 Active 2022 JANIS JESUS null, [facility] 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 5 23:20:43 Nonexuda tive age-rela french macular degenera tion 286528604 Active 2022 Radha Garcia null, [facility] 5 23:20:43 Atrial fibrilla tion 71505316 Active 2023 JANIS JESUS null, [facility] 5 11:22:20 Low back pain 016227339 Active 2023 Radha Garcia null, [facility] 5 23:20:43 Leukopen ia 89768692 Active 2023 Radha Garcia null, [facility] 5 23:20:43 Chronic diastoli c heart failure 730640888 Active 2023 JANIS JESUS null, [facility] 5 11:22:34 Acute kidney injury 00222249 Completed 202305/06/2024 Radha garcía, [facility] 5 23:20:02 Thyroid stimulat ing hormone level above referenc e range 553562592 Active 2023 Radha Garcia null, [facility] 5 23:20:43 Infectio n of cassidyaceou s cyst 711427797 Completed 202305/06/2024 Radha Garcia null, [facility] 5 23:20:54 Rheumato id arthriti s 51574505 Active 2024 Radha Garcia null, [facility] 5 23:20:43 Peripher al vascular disease 276214514 Active 2024 Radha Garcia null, [facility] 5 23:20:43 Acute on chronic diastoli c heart failure 961144051 Active 2024 Radha Garcia null, [facility] 5 23:20:43 Chronic kidney disease due to type 2 diabetes mellitus 44540495224 8 Active 2024 Radha Garcia null, [facility] 5 12:18:38 Age related macular degenera tion 471082597 Active 2024 Radha Garcia null, [facility] 5 12:18:31 Chronic kidney disease stage 3B 778556786 Active 2024 JANIS JESUS null, [facility] 5 10:33:25 Maksim hematuri a 112849610 Active 2024 Radha Garcia null, [facility] 5 16:48:14 Prostati tis 6115322 Active 20[facility] 5 16:48:20 Dysuria 73951921 Active 2024 [facility] 5 14:02:50 Acute urinary tract infectio n 606940568 Active 2024 JANIS JESUS [facility] 5 14:43:11 Problem Notes None recorded. Procedures Surgical History Date Name Laterality Status Provider Name and Address Organization Details Recorded Time coronary artery bypass grafts x 2 completed [facility] 08/03/2022 10:25:38 tonsillectomy completed [facility] 08/03/2022 10:25:47 Mohs surgery completed [facility] 08/03/2022 10:26:13 replacement of aortic valve completed [facility] 08/03/2022 10:26:52 appendectomy completed , [facility] 05/06/2024 23:21:08 cardiac pacemaker procedure completed , [facility] 05/06/2024 23:21:25 Imaging Results None recorded. Procedure Notes None recorded. Medical Equipment None Reported. Allergies Allergen ID Allergen Name Allergen Category Reaction Reaction Severity Criticality Documentation Date Start Date Code Code System Note Provider Name and Address Organization Details Recorded Time 1012 Product containin g penicilli n (product) medicatio n Not available Not available Not available 05/11/2022 80227 8001 SNOMED [facility] 3 09:16:51 1013 allopurin ol medicatio n Not available Not available Not available 05/11/2022 519 RxNorm Radha Radha null, [facility] 3 09:17:18 1014 ciproflox acin medicatio n Not available Not available Not available 05/11/2022 2551 RxNorm Radha garcía, [facility] 3 09:17:30 99889 ciproflox acin hydrochlo ride medicatio n dizziness Not available Not available 09/03/2022 08647 RxNorm React ion: Dizzi ness; Comme nt: Recor ded 03/11 8:52A M by Candelaria Miles on, DELI SLICER, Offic e Visit ; Albaro mccollum; Danielle knapp ce: *; ; JANIS JESUS ricky, [facility] 4 10:04:36 29924 lisinopri l medicatio n cough Not available Not available 09/03/2022 [id number] RxNorm JANIS ANN MARIE ricky, [facility] 4 10:13:16 [id number] simvastat in medicatio n Not available Not available Not available 09/03/2022 [id number] RxNorm JANIS JESUS ricky, [facility] 4 10:13:20 Medications Name Sig Start [...] Updated DateTime 5 176.53 cm 31.3 kg/m2 61733.3 6 g 97.6 [degF] 95 /min 97 % 97 % 110/66 mm[Hg] JANIS JESUS [facility] 5 09:30:54 Social History Question Answer Notes LastModified by Organizat ion Details LastModified Time Tobacco Smoking Status Never Smoker JANIS garcía [facility] 08/03/2022 10:25:09 What Was The Date Of Your Most Recent Tobacco Screening? 08/07/2024 [email or web address] Information not available 08/07/2024 Sex: Unknown Functional Status Question Answer Note LastModified by Organization D etails LastModified Time Do you or have you ever used any other forms of tobacco or nicotine? No [email or web address] Information not available 04/26/2023 Do you or have you ever used any nicotine-free cigarettes, vape, or chewing tobacco? No [email or web address] Information not available 09/20/2023 Mental Status None recorded. Family History Relationship Description Onset Age of this Age Resolved Age Notes LastModified by Organization Details LastModified Time Father Cerebrovascu lar accident [email or web address] Not available 10:13:59 Mother Coronary atherosclero sis [email or web address] Not available 05/01 10:14:13 Medical History No medical history recorded. Immunizations Vaccine Type Date Status Note Provider Nam e and Address Organization Details Recorded Time Influenza, split virus, trivalent, preservative 8 completed JANIS garcía [facility] 04/26/2023 10:04:31 Influenza, split virus, trivalent, preservative 6 completed Not Available [facility] 09/03/2022 02:52:04 Influenza, split virus, trivalent, preservative 7 completed Not Available [facility] 09/03/2022 02:52:04 pneumococcal polysaccharide PPV23 7 completed Not Available [facility] 09/03/2022 02:52:04 Pneumococcal conjugate PCV 13 7 completed Not Available [facility] 09/03/2022 02:52:04 zoster live 7 completed Not Available [facility] 09/03/2022 02:52:05 Influenza, adjuvanted, trivalent, PF 5 completed JANIS JESUS null, [facility] 11/19/2024 11:55:16 Influenza, high-dose, quadrivalent, PF 1 completed JANIS JESUS null, [facility] 04/26/2023 10:04:31 Influenza, high-dose, quadrivalent, PF 2 completed JANIS JESUS null, [facility] 04/26/2023 10:04:31 COVID-19, mRNA, LNP-S, PF, 30 mcg/0.3 mL dose 1 completed JANIS JESUS null, [facility] 04/26/2023 10:04:31 COVID-19, mRNA, LNP-S, PF, 30 mcg/0.3 mL dose 1 completed JANIS JESUS null, [facility] 04/26/2023 10:04:31 COVID-19, mRNA, LNP-S, PF, 30 mcg/0.3 mL dose 2 completed JANIS JESUS null, [facility] 04/26/2023 10:04:31 COVID-19, mRNA, LNP-S, PF, 30 mcg/0.3 mL dose 1 completed JANIS JESUS null, [facility] 04/26/2023 10:04:31 COVID-19, mRNA, LNP-S, bivalent, PF, 30 mcg/0.3 mL dose 2 completed JANIS garcaí, [facility] 04/26/2023 10:04:31 COVID-19, mRNA, LNP-S, PF, myriam-sucrose, 30 mcg/0.3 mL 3 completed JANIS garcía, [facility] 04/26/2023 10:04:31 Tdap 3 completed JANIS JESUS null, [facility] 04/26/2023 10:04:31 Influenza, high-dose, trivalent, PF 8 completed JANIS garcía, [facility] 04/26/2023 10:04:31 Hep A, adult 3 completed JANIS garcía, [facility] 04/26/2023 10:04:31 COVID-19, mRNA, LNP-S, PF, myriam-sucrose, 30 mcg/0.3 mL 4 completed JANIS garcía, [facility] 02/14/2024 11:20:35 Influenza, adjuvanted, trivalent, PF 4 completed Rahda garcía, [facility] 11/30/2023 12:00:34 Past Encounters Encounter ID Performer Location Encounter Start Date Encounter Closed Date Diagnosis/Indication Diagnosis SNOMED-CT Code Diagnosis ICD10 Code Diagnosis IMO Codes Diagnosis Note [id number] Jerardo Chung MD [facility] ([facility]) [address] [place] [address] [phone] 5 10/21/2024 12:18:56 10/21/2024 13:52:57 Mass of urinary bladder 515547032 N32.89 874946 suspicious for posterior bladder mass.this patient is more likely than not going to want to follow conservati ve treatment. however, without cystoscopy it is very hard to guide him. he is not currently bleeding. he requires anticoagul ation for cardiac treatment. will continue that for now. 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 Congestive heart failure 04307933 I50.9 Maksim hematuria 87785601 5 R31.0 454400 resolved. his cystoscope is in the works [...] (MEDICARE REPLACEMENT/A DVANTAGE - PPO) Thong Salgado [id number] Thong Salgado Notes Date Note Type Note [...] responded well ROS as noted in the [facility] hospital f/u: Pt reports that he left AMA because they weren't giving him his medications and he wasn't improving. They had him on oxygen in the hospital, but when he left, was not prescribed any oxygen. Patient feels that he needs it at home, not all of the time. his urine flow is at baseline. no dysuria. hematuria resolved. Jerardo Chung MD [address] [place] [address], [phone], [facility] 11/19/2024 10:04:37
--- OUTSIDE RECORDS SUMMARY | 2024-11-24 15:15 | XMS_ITS | Clinical Summary ---
[facility] Organization [facility] Address [address] 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 10/09/2019 Active Magnesium Oxide 84.5 mg mag (140 mg) Capsule Take 140 mg by mouth 2 times daily. 10/09/2019 Active vit B cmplx 3-FA-Vit C-Biotin (RENAVITE-RX RX) 1-60-300 mg-mg-mcg Tablet Take 1 Tablet by mouth daily. 10/09/2019 Active multivitamins-mi nerals-lutein (CENTRUM SILVER) Tablet Take 1 Tablet by mouth daily. 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 Gender Identity Not on file Sexual Orientation [...] (#1) 2024 Medical Devices Implanted Type Area All Terrain Vehicle Racer Device Identifier Shelf Expiration Date Model / Serial / Lot Closure Perclose Proglide [id number] - [id number] Implanted:Qty : 1 on 11/26/2019 Closure Device Right: Groin HELLER- VASC DEVICE 08/05/2021 [id number] / [id number] / [id number] Sealant Mynx It Solutions Architect 6-7fr [id number] - [id number] Implanted:Qty : 1 on 11/26/2019 Closure Device Left: Groin ACCESS CLOSURE 10/06/2021 [id number] / / [id number] Valve Sapien3 Transcath 29mm [id number] - [id number] Implanted:Qty : 1 on 11/26/2019 by Yan Salmeron MD Tissue N/A: Aorta [employer] [id number] / [id number] / Explanted Type Area All Terrain Vehicle Racer Device Identifier Shelf Expiration Date Model / Serial / Lot Cath Pace Bipolar 5fr [id number] - [id number] Explanted:Qty : 1 on 11/26/2019 Catheter Left: Chest CR BARD- MED DIV 07/06/2021 [id number] / / [id number] Insurance MEDICARE HMO Care Teams Donor Services Manager Relationship Specialty Start Date End Date Destin Chung MD [address] [phone] PCP - General Family Practice 01/26/16
--- OUTSIDE RECORDS SUMMARY | 2024-11-24 15:15 | XMS_ITS | Encounter Summary ---
Author Organization [facility] Address [address] [place] [address] Care Team Providers Care High Lead Yarder Name Role Phone Destin Chung MD Primary Care Provider [phone] Encounter Details Date Type Department Care Team (Late st Contact Info) Description 10/08/2019 Ancillary Orders [facility] External Department [address] [place] [phone] [facility], External Provider [address] [place] [address] Other chest pain Social History Tobacco Use Types Packs/Day Years Used Date Smoking Tobacco: Never Assessed Sex and Gender Information Value Date Recorded Sex Assigned at Not on file Legal Sex Male 9:36 AM [facility] Gender Identity Not on file Sexual Orientation [...] * CATH PRIOR STUDY (02/15/2019 2:45 PM [facility]) Narrative 10/08/2019 3:00 PM CDT This exam was auto finalized to allow images to be scanned to PACS. External Provider Pat FLUOROSCOPY ORDERABLES Fin al Result documented in this encounter Visit Diagnoses Diagnosis Other chest pain Other chest pain documented in this encounter Care Teams High Lead Yarder Relationship Specialty Start Date End Date Destin Chung MD [address] [facility] [address] [place] [address] PCP - General Family Practice 01/26/16 documented as of this encounter
--- OUTSIDE RECORDS SUMMARY | 2024-11-24 15:15 | XMS_ITS | Patient Health Record ---
Author Organization [employer] Address [address] [place] [address] Care Team Providers Care Cyber Security Administrator Name Role Phone Destin Chung MD Primary Care Provider STEFAN Laughlin Unavailable [phone] SHELLY RIVERS Unavailable [phone] Allergies Allergen (clinical drug ingredient) Drug/Non Drug Allergy documented on EMR Reaction Allergy Type Onset Date Status ciprofloxacin Ciprofloxacin Unknown Drug Allergy Active Penicillin Unknown Drug Allergy Active Results Component Value Reference Range Notes Urinalysis, Routine Reviewed date:11/14/2024 02:47:01 PM Interpretation: Performing Lab: Notes/Report: Urine-Color yellow Appearance cloudy Glucose 3+ Bilirubin - Ketones - Specific [place] 1.015 Occult Blood 1+ pH 6.0 Urine Protein 1+ Urobilinogen,Semi-Qn - Nitrite, Urine - WBC Esterase 2+ Urinalysis, Routine Reviewed date:11/07/2024 09:51:47 AM Interpretation: Performing Lab: Notes/Report: Urine-Color yellow Appearance cloudy Glucose 3+ Bilirubin - Ketones - Specific [place] 1.015 Occult Blood trace pH 6.0 Urine Protein 1+ Urobilinogen,Semi-Qn - Nitrite, Urine -3+ UBASE - Urinary Tract Infect ion (HTRx) Reviewed date:11/08/2024 11:11:49 AM Interpretation: Performing Lab:, [facility] at [address], Phone - [phone], Director - [id number] Notes/Report: CTX-M1 (15), M2 (2), M9 (9), [...] W/U Status Risk Notes Problem Gross hematuria (306857737) Gross hematuria (R31.0) Active confirmed Problem Lower urinary tract symptoms due to benign prostatic hypertrophy (83188197803320) Benign prostatic hyperplasia with lower urinary tract symptoms (N40.1) Active confirmed Problem Urinary tract infectious disease (92063541) Complicated UTI (urinary tract infection) (N39.0) Active confirmed Problem Incomplete bladder emptying (710195060) Incomplete bladder emptying (R33.9) Active confirmed Problem Urine stream spraying (R39.198) Active confirmed Vital Signs Heart Rate 85 /min 11/14/2024 195 Blood pressure diastolic 65 mm Hg 11/14/2024 195 Height-cm 175.26 cm 11/14/2024 195 Weight-kg 88.45 kg 11/14/2024 195 Height 69 in 11/14/2024 195 Blood pressure systolic 113 mm Hg 11/14/2024 195 Weight 195 lbs 11/14/2024 195 BMI 28.79 kg/m2 11/14/2024 195 Procedures Procedure Date Ordered Date Performed Result Body Sit e Bladder Scan 11/07/2024 N/A Encounters Encounter Location Date Provider Diagnosis [employer], [facility] [address] [place] [address] 11/07/2024 STEFAN SHARMA Bladder mass N32.89 ; Establishing care with new doctor, encounter for Z76.89 ; Complicated UTI (urinary tract infection) N39.0 ; Gross hematuria R31.0 ; Urine stream spraying R39.198 and Incomplete bladder emptying R33.9 [employer], [facility] [address] [address] 11/14/2024 SHELLY RIVERS Bladder mass N32.89 ; Benign prostatic hyperplasia with lower urinary tract symptoms N40.1 ; Establishing care with new doctor, encounter for Z76.89 ; Complicated UTI (urinary tract infection) N39.0 ; Gross hematuria R31.0 ; Urine stream spraying R39.198 and Incomplete bladder emptying R33.9 [employer], [facility] [address] [place] [address] 11/20/2024 STEFAN SHARMA [employer], [facility] [address] [place] [address] 10/31/2024 STEFAN SHARMA DO NOT USE THIS FACILITY [employer], [facility] [address] [phone] 11/08/2024 STEFAN SHARMA Assessments Encounter Date Diagnosis [...] Ortiz, 12/04/2024 09:00:00 AM, [address] [place], [address], Insurance Providers Payer Name Payer Address Payer Phone Subscriber Number Group Number Insured Name Patient Relationship to Insured Coverage Start Date Coverage End Date [employer] Medicare Replacement [address] [address] [place], [place] [id number] Thong Salgado Self - patient is the insured Medical (General) History Medical History History ICD Code arthritis skin cancer heart disease high cholesterol high blood pressure high thyroid stroke AFIB bladder mass Surgical History Surgery Date(Month/Year) pace maker skin cancer removal Appendectomy Double bypass Valve Hospitalization History Reason Date(Month/Year) See surgery hx
--- OUTSIDE RECORDS SUMMARY | 2024-11-24 15:15 | XMS_ITS | Encounter Summary ---
Author Organization [facility] Address [address] [place] [address] Care Team Providers Care Miller Supervisor Name Role Phone Destin Chung MD Primary Care Provider [phone] Encounter Details Date Type Department Care Team (Late st Contact Info) Description 10/08/2019 Ancillary Orders [facility] External Department [address] [place] [phone] [facility], External Provider [address] [place] [address] Other chest pain Social History Tobacco Use Types Packs/Day Years Used Date Smoking Tobacco: Never Assessed Sex and Gender Information Value Date Recorded Sex Assigned at Not on file 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 us External Provider [facility] [place] ORDERABLES Final Resu lt documented in this encounter Visit Diagnoses Diagnosis Other chest pain Other chest pain documented in this encounter Care Teams Miller Supervisor Relationship Specialty Start Date End Date Destin Chung MD [address] [facility] [address] [place] [address] PCP - General Family Practice 01/26/16 documented as of this encounter
--- OUTSIDE RECORDS SUMMARY | 2024-11-24 15:15 | XMS_ITS | Patient Health Record ---
Author Organization [facility] Address [address] [place] [address] Care Team Providers Care Forensic Analyst Name Role Phone Lyle Headley Primary Care Provider Unavailabl e Migration, Provider Unavailable Unavailable Reason For Referral No Information Encounters Encounter Location Date Provider Diagnosis Migrated_Facility 0 0 12/02/2023 Provider Migration Migrated_Facility 0 0 12/03/2023 Provider Migration Plan Of Treatment No Information
--- OUTSIDE RECORDS SUMMARY | 2024-11-24 15:15 | XMS_ITS | Encounter Summary ---
Author Organization [facility] Address [address] [place] [address] Care Team Providers Care Accounts Payables Clerk Name Role Phone Destin Chung MD Primary Care Provider [phone] Encounter Details Date Type Department Care Team (Late st Contact Info) Description 10/08/2019 Ancillary Orders [facility] External Department [address] [place] [phone] [facility], External Provider [address] [place] [address] Other chest pain Social History Tobacco Use Types Packs/Day Years Used Date Smoking Tobacco: Never Assessed Sex and Gender Information Value Date Recorded Sex Assigned at Not on file 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
--- OUTSIDE RECORDS SUMMARY | 2024-11-24 15:15 | XMS_ITS | Encounter Summary ---
Author Organization [facility] Address [address] [place] [address] Care Team Providers Care Poll Clerk Name Role Phone Destin Chung MD Primary Care Provider [phone] Reason for Referral * Radiology Services (Routine) - Closed Specialty Diagnoses / Procedures Referred By Geoffrey t Referred To Contact Radiology Diagnoses S/P TAVR (transcatheter aortic valve replacement) Procedures ECHO LIMITED WO DOPPLER ECHO COMPLETE Sav Mckay MD [address] [place] [address] Phone: tel: fax: [facility] [place] [address] [place] [address] Phone: tel: fax: Referral ID Status Reason Start Date Expiration Date Visits Re quested Visits Authorized [id number] Closed 11/27/2019 12/27/2020 1 1 Encounter Details Date Type Department Care Team (Late st Contact Info) Description 12/25/2019 Ancillary Orders [facility] [address] [place] [address] Sav Mckay MD [address] [place] [phone] S/P TAVR (transcatheter aortic valve replacement) Social History Tobacco Use Types Packs/Day Years Used Date Smoking Tobacco: Never Smokeless Tobacco: Former Sex and Gender Information Value Date Recorded Sex Assigned at Not on file Legal Sex Male 9:36 AM [facility] Gender Identity Not on file Sexual Orientation Not on file COVID-19 Exposure Response Date Recorded In the last month, have you been in contact with someone who was confirmed or suspected to have Coronavirus / COVID-19? No / Unsure 12/25/2019 9:52 AM [facility] documented as of this encounter Plan of Treatment Not on file documented as of this encounter Results * ECHO LIMITED WO DOPPLER (12/25/2019 10:58 AM [facility]) EJECTION FRACTION 30 INTERFACE SYSTEM 12/25/2019 10:1 3 AM [facility] Narrative INTERFACE SYSTEM - 12/25/2019 11:43 AM [facility] Radiology Services - Echocardiology [address] [place] [address] Limited Transthoracic Echocardiography Patient: Naomi Study ECHO LIMITED MINNA Benito ID: Gender: M : 1940 Age: 79 Room: Study 12/25/2019 Pt Outpatient Date: Status: Study 10:13:03 AM CSN #: [id number] Time: Ordering:Sav Mckay Interpreting:Garrett Rivas Sql Server Architect: Maureen Umana Indications and History: S/P TAVR. [...] Procedure Note Garrett Rivas MD - 12/25/2019 [facility] Radiology Services - Echocardiology [address] [place] [address] Limited Transthoracic Echocardiography Patient: Naomi Study ECHO LIMITED MINNA Benito ID: Gender: M : 1940 Age: 79 Room: Study 12/25/2019 Pt Outpatient Date: Status: Study 10:13:03 AM CSN #: [id number] Time: Ordering:Sav Mckay Interpreting:Garrett Rivas Sql Server Architect: Maureen Umana Indications and History: S/P TAVR. [...] US ORDERABLES Final Result Performing Organization Address City/[facility] Co de Phone Number INTERFACE SYSTEM Refer to clinic/hospital department documented in this encounter Visit Diagnoses Diagnosis S/P TAVR (transcatheter aortic valve replacement) S/P TAVR (transcatheter aortic valve replacement) documented in this encounter Care Teams Poll Clerk Relationship Specialty Start Date End Date Destin Chung MD [address] [phone] PCP - General Family Practice 01/26/16 documented as of this encounter
--- OUTSIDE RECORDS SUMMARY | 2024-11-24 15:16 | XMS_ITS | Clinical Summary ---
Author Organization [facility] Address [address] [place] [address] Care Team Providers Care Roadway Engineer Name Role Phone Destni Chung MD Primary Care Provider [phone] Allergies Active Allergy Reactions Criticality Noted Date [...] tablet Take 120 mg by mouth daily manufacturing engineer assembly. Active furosemide (LASIX) 40 mg tablet Take [...] Take 20 mEq by mouth daily. 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 Gender Identity Not on file Sexual Orientation [...] (#1) 2024 Medical Devices Implanted Type Area Fuel Quality Tech Device Identifier Shelf Expiration Date Model / Serial / Lot Closure Perclose Proglide [id number] - [id number] Implanted:Qty: 1 on 11/26/2019 at [facility] Closure Device Right: Groin HELLER- VASC DEVICE 08/05/2021 [id number] / [id number] / [id number] Sealant Mynx Access Nurse 6-7fr [id number] - [id number] Implanted:Qty: 1 on 11/26/2019 at [facility] Closure Device Left: Groin ACCESS CLOSURE 10/06/2021 [id number] / / [id number] Valve Sapien3 Transcath 29mm [id number] - [id number] Implanted:Qty: 1 on 11/26/2019 by Yan Salmeron MD at [facility] Tissue N/A: Aorta [employer] [id number] / [id number] / Explanted Type Area Fuel Quality Tech Device Identifier Shelf Expiration Date Model / Serial / Lot Cath Pace Bipolar 5fr [id number] - [id number] Explanted:Qty: 1 on 11/26/2019 at [facility] Catheter Left: Chest CR BARD- MED DIV 07/06/2021 [id number] / / [id number] Insurance [address] [place] [id number] [place] [address] Advance Directives For more information, please contact: [phone] * Full Code (Latest Code Status on File) Date Activated Date Inactivated Comments 11/26/2019 8:04 AM 11/27/2019 5:26 PM Care Teams Roadway Engineer Relationship Specialty Start Date End Date Destin Chung MD [address] [phone] PCP - General Family Practice 01/26/16
--- OUTSIDE RECORDS SUMMARY | 2024-11-24 15:16 | XMS_ITS | Data Portability ---
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 [email or web address] Not available 11/19/2024 09:58:38 Plan of Treatment Reminders Order Date Submit Date Provider Last Modified By Organization Details Last Modified Time Details Appointments OFFICE VISIT CHUNG 2024 09:45A M Jerardo Chung MD Not available Not available Not available Lab CMP, serum or plasma 2024 025 [place] Colin [facility], [address] [facility], [facility] 1, [place], [address], 11/18/2024 10:13:51 uric acid, serum or plasma 2024 025 [facility], [address] [place] [address] 248, [address], [place], [address], 11/05/2024 13:58:13 microalbu min/creat inine, mass ratio, urine 2024 025 [facility], [address] [place] [address], [address], [place], [address], 11/05/2024 13:58:14 hemoglobi n A1C/hemog lobin total, QN, blood 2024 025 [facility], [address], [facility], [place], [address], 11/04/2024 11:14:53 CMP, serum or plasma 2024 025 [facility], [address], [address], [address], 11/04/2024 11:00:08 pro BNP (pro B-type natriuret ic peptide), serum or plasma 2024 025 [facility], [address] [place] [address], [address] , [place], [address], 11/05/2024 13:58:15 T4, free, serum 2024 025 [facility] [employer] [facility], [address] [place] [address], [address] , [place], [address], 11/05/2024 13:58:15 thyrotrop in, QN, serum or plasma 2024 025 [facility], [address], [facility] 1, [place], [address], 11/04/2024 12:44:48 CBC 2024 025 [facility], [address], [facility] 1, [place], [address], 11/04/2024 11:14:48 ESR (erythroc yte sedimenta tion rate), blood 2024 025 [facility] ([facility] [address] [place], [address], 11/05/2024 09:27:06 C-reactiv e protein, quantitat aminta, serum or plasma 2024 025 [facility], [address] [facility] [address], [address] Alex C, [place], [address], 11/05/2024 13:58:14 urinalysi s, complete 2024 025 [place] [facility], [address], [facility], [place], [address], 10/16/2024 14:46:05 culture, urine 2024 025 [facility], [address] [facility] [address], [address] Alex C, [place], [address], 10/17/2024 19:38:31 Referral otolaryng ologist referral 2024 025 Hilario Golden MD, [address] [facility], [place], [address], 11/04/2024 09:30:19 urologist referral 2024 025 [facility], [address], [place], [address], 11/04/2024 16:07:37 Procedures None recorded. Surgeries None recorded. Imaging None recorded. Medication Orders levothyro xine 50 mcg tablet 2024 025 [facility] [place], [address] [place], [address], 11/04/2024 10:40:20 Patient TargetsNo targets recorded. Patient InstructionsNo instructions recorded. 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 r Lesion of ear canal [...] Available [facility] [address] [place] [address], [place], [address], 09/26/2024 11:07:27 09/20/19 25 09/26/2024 URINA LYSIS WITH MICRO clarity CLOUDY abnormal Not Available [facility] [address] [place] [address], [place], [address], 09/26/2024 11:07:27 09/20/19 25 09/26/2024 URINA LYSIS WITH MICRO glu 3+ abnormal Not Available [facility] [address] [place] [address], [place], [address], 09/26/2024 11:07:27 09/20/19 25 09/26/2024 URINA LYSIS WITH MICRO bili NEGATI VE Not Available [facility] [address] [place] [address], [place], [address], 09/26/2024 11:07:27 09/20/1909/26/2024 URINA LYSIS WITH MICRO ket NEGATI VE Not Available [facility] [address] [place] [address], [place], [address], 09/26/2024 11:07:27 09/20/19 25 09/26/2024 URINA LYSIS WITH MICRO S.g 1.015 1.005- 1.025 Not Available [facility] [address], [place], [address], 09/26/2024 11:07:27 09/20/19 25 09/26/2024 URINA LYSIS WITH MICRO pH 5.5 5.0-7. 0 Not Available [facility] [address] [place] [address], [place], [address], 09/26/2024 11:07:27 09/20/19 25 09/26/2024 URINA LYSIS WITH MICRO pro 1+ abnormal Not Available [facility] [address], [place], [address], 09/26/2024 11:07:27 09/20/19 25 09/26/2024 URINA LYSIS WITH MICRO uro 0.2 E.U./D L Not Available [facility] [address] [place] [address], [place], [address], 09/26/2024 11:07:27 09/20/19 25 09/26/2024 URINA LYSIS WITH MICRO nit NEGATI VE Not Available [facility] [address] [place] [address], [place], [address], 09/26/2024 11:07:27 09/20/19 25 09/26/2024 URINA LYSIS WITH MICRO blo TRACE- INTACT Not Available [facility] [address] [place] [address], [place], [address], 09/26/2024 11:07:27 09/20/19 25 09/26/2024 URINA LYSIS WITH MICRO bryanna 1+ abnormal Not Available [facility] [address] [place] [address], [place], [address], 09/26/2024 11:07:27 09/20/19 25 09/26/2024 URINA LYSIS WITH MICRO WBC 80-100 abnormal Not Available [facility] [address] [place] [address], [place], [address], 09/26/2024 11:07:27 09/20/19 25 09/26/2024 URINA LYSIS WITH MICRO RBC 1-2 Not Available [facility] [address] [place] [address], [place], [address], 09/26/2024 11:07:27 09/20/19 25 09/26/2024 URINA LYSIS WITH MICRO epi cells 1-2 Not Available [facility] [address], [place], [address], 09/26/2024 11:07:27 09/20/19 25 09/26/2024 URINA LYSIS WITH MICRO bacteria NEGATI VE Not Available [facility] [address], [place], [address], 09/26/2024 11:07:27 09/20/19 25 09/26/2024 URINA LYSIS WITH MICRO other NG Not Available [facility] [address], [place], [address], 09/26/2024 11:07:27 09/27/19 25 09/28/2024 CULTU RE, URINE , ROUTI NE culture, urine, routine SEE NOTE CULTU RE, URINE , ROUTI NE Micro Numbe r: [id number] Test Statu s: Final Speci men [...] Cultu re Trans port Tube. Not Available [facility] [address] [address], [place], [address], 09/28/2024 02:16:37 10/17/19 25 10/16/2024 URINA LYSIS WITH MICRO color YELLOW Not Available [facility] [address] [facility] 1, [place], [address], 10/16/2024 14:46:05 10/17/19 25 10/16/2024 URINA LYSIS WITH MICRO clarity CLOUDY abnormal Not Available [facility] [address] [facility] [address], [place], [address], 10/16/2024 14:46:05 10/17/19 25 10/16/2024 URINA LYSIS WITH MICRO glu 3+ abnormal Not Available [facility] [address] [place] [address], [place], [address], 10/16/2024 14:46:05 10/17/1910/16/2024 URINA LYSIS WITH MICRO bili NEGATI VE Not Available [facility] [address] [place] [address], [place], [address], 10/16/2024 14:46:05 10/17/1910/16/2024 URINA LYSIS WITH MICRO ket NEGATI VE Not Available [facility] [address] [place] [address], [place], [address], 10/16/2024 14:46:05 10/17/19 25 10/16/2024 URINA LYSIS WITH MICRO S.g 1.020 Not Available [facility] [address] [facility] [address], [place], [address], 10/16/2024 14:46:05 10/17/19 25 10/16/2024 URINA LYSIS WITH MICRO pH 5.5 Not Available [facility] [address] [place] [address], [place], [address], 10/16/2024 14:46:05 10/17/1910/16/2024 URINA LYSIS WITH MICRO pro 2+ abnormal Not Available [facility] [address] [facility] [address], [place], [address], 10/16/2024 14:46:05 10/17/19 25 10/16/2024 URINA LYSIS WITH MICRO uro 0.2 E.U./D L Not Available [facility] [address] [facility] [address], [place], [address], 10/16/2024 14:46:05 10/17/1910/16/2024 URINA LYSIS WITH MICRO nit NEGATI VE Not Available [facility] [address] [place] [address], [place], [address], 10/16/2024 14:46:05 10/17/1910/16/2024 URINA LYSIS WITH MICRO blo TRACE- INTACT abnormal Not Available [facility] [address] [place] [address], [place], [address], 10/16/2024 14:46:05 10/17/1910/16/2024 URINA LYSIS WITH MICRO bryanna TRACE abnormal Not Available [facility] [address] [facility] [address] 1, [place], [address], 10/16/2024 14:46:05 10/17/19 25 10/16/2024 URINA LYSIS WITH MICRO WBC 100 abnormal > Not Available [facility] [address], [place], [address], 10/16/2024 14:46:05 10/17/19 25 10/16/2024 URINA LYSIS WITH MICRO RBC NEGATI VE Not Available [facility] [address], [place], [address], 10/16/2024 14:46:05 10/17/19 25 10/16/2024 URINA LYSIS WITH MICRO epi cells NEGATI VE Not Available [facility] [address], [place], [address], 10/16/2024 14:46:05 10/17/19 25 10/16/2024 URINA LYSIS WITH MICRO bacteria NEGATI VE Not Available [facility] [address], [place], [address], 10/16/2024 14:46:05 10/17/19 25 10/16/2024 URINA LYSIS WITH MICRO other NG Not Available [facility] [address] [place] [address] [facility] 1, [place], [address], 10/16/2024 14:46:05 10/17/19 25 10/17/2024 CULTU RE, URINE , ROUTI NE culture, urine, routine SEE NOTE CULTU RE, URINE , ROUTI NE Micro Numbe r: [id number] Test Statu s: Final Speci men [...] Trans port Tube. Not Available [facility] [address] [address], [place], [address], 10/17/2024 19:38:31 10/29/1910/28/2024 URINA LYSIS WITH MICRO color YELLOW Not Available [facility] [address] [place] [facility], [place], [address], 10/28/2024 11:29:59 10/29/1910/28/2024 URINA LYSIS WITH MICRO clarity CLOUDY abnormal Not Available [facility] [address] [place] [facility], [place], [address], 10/28/2024 11:29:59 10/29/19 25 10/28/2024 URINA LYSIS WITH MICRO glu 2+ abnormal Not Available [facility] [address] [place] [facility], [place], [address], 10/28/2024 11:29:59 10/29/19 25 10/28/2024 URINA LYSIS WITH MICRO bili NEGATI VE Not Available [facility] [address] [place] [address], [place], [address], 10/28/2024 11:29:59 10/29/19 25 10/28/2024 URINA LYSIS WITH MICRO ket NEGATI VE Not Available [facility] [address] [place] [address], [place], [address], 10/28/2024 11:29:59 10/29/19 25 10/28/2024 URINA LYSIS WITH MICRO S.g 1.015 Not Available [facility] [address] [place] [address] [facility] 1, [place], [address], 10/28/2024 11:29:59 10/29/19 25 10/28/2024 URINA LYSIS WITH MICRO pH 6.5 Not Available [facility] [address] [place] [address] [facility] 1, [place], [address], 10/28/2024 11:29:59 10/29/19 25 10/28/2024 URINA LYSIS WITH MICRO pro 1+ abnormal Not Available [facility] [address] [place] [address], [place], [address], 10/28/2024 11:29:59 10/29/19 25 10/28/2024 URINA LYSIS WITH MICRO uro 0.2 E.U./D L Not Available [facility] [address] [place] [address], [place], [address], 10/28/2024 11:29:59 10/29/19 25 10/28/2024 URINA LYSIS WITH MICRO nit NEGATI VE Not Available [facility] [address] [place] [address], [place], [address], 10/28/2024 11:29:59 10/29/19 25 10/28/2024 URINA LYSIS WITH MICRO blo TRACE- INTACT abnormal Not Available [facility] [address], [place], [address], 10/28/2024 11:29:59 10/29/19 25 10/28/2024 URINA LYSIS WITH MICRO bryanna 3+ abnormal Not Available [facility] [address], [place], [address], 10/28/2024 11:29:59 10/29/19 25 10/28/2024 URINA LYSIS WITH MICRO WBC 100 abnormal > Not Available [facility] [address], [place], [address], 10/28/2024 11:29:59 10/29/19 25 10/28/2024 URINA LYSIS WITH MICRO RBC 15-20 abnormal Not Available [facility] [address], [place], [address], 10/28/2024 11:29:59 10/29/19 25 10/28/2024 URINA LYSIS WITH MICRO epi cells NEGATI VE Not Available [facility] [address], [place], [address], 10/28/2024 11:29:59 10/29/19 25 10/28/2024 URINA LYSIS WITH MICRO bacteria TRACE OF AMORPH OUS abnormal Not Available [facility] [address], [place], [address], 10/28/2024 11:29:59 10/29/19 25 10/28/2024 URINA LYSIS WITH MICRO other NG Not Available [facility] [address], [place], [address], 10/28/2024 11:29:59 10/29/19 25 10/30/2024 CULTU RE, URINE , ROUTI NE culture, urine, routine SEE NOTE CULTU RE, URINE , ROUTI NE Micro Numbe r: [id number] Test Statu s: Final Speci men [...] Cultu re Trans port Tube. Not Available [facility] [address] [place], [address], 10/30/2024 02:53:06 11/05/1911/04/2024 CMP (MALE ) glucose 154.0 mg/dL 60.0-9 9.0 high Not Available [facility] [address], [address], 11/04/2024 11:00:08 11/05/1911/04/2024 CMP (MALE ) BUN (blood urea nitrogen) 23.0 mg/dL 10.0-2 6.0 Not Available [facility] [address], [address], 11/04/2024 11:00:08 11/05/1911/04/2024 CMP (MALE ) creatinine (serum) 2.1 mg/dL 0.4-1. 5 high Not Available [facility] [address] [facility] 1, [place], [address], 11/04/2024 11:00:08 11/05/1911/04/2024 CMP (MALE ) BUN/creatini ne ratio 10.95 ratio Not Available [facility] [address] [facility] 1, [place], [address], 11/04/2024 11:00:08 11/05/1911/04/2024 CMP (MALE ) eGFR calculated 32.2 Not Available [facility] [address] [facility] 1, [place], [address], 11/04/2024 11:00:08 11/05/19 25 11/04/2024 CMP (MALE ) total protein 8.4 g/dL 6.0-8. 5 Not Available [facility] [address] [facility], [place], [address], 11/04/2024 11:00:08 11/05/1911/04/2024 CMP (MALE ) total bilirubin 0.6 mg/dL 0.2-1. 3 Not Available [facility] [address] [facility], [place], [address], 11/04/2024 11:00:08 11/05/1911/04/2024 CMP (MALE ) albumin 5.0 g/dL 3.5-5. 5 Not Available [facility] [address] [facility], [place], [address], 11/04/2024 11:00:08 11/05/1911/04/2024 CMP (MALE ) globulin 3.4 calc Not Available [facility] [address] [facility] 1, [place], [address], 11/04/2024 11:00:08 11/05/1911/04/2024 CMP (MALE ) AST (SGOT) 34.0 U/L 0.0-46 .0 Not Available [facility] [address] [facility], [place], [address], 11/04/2024 11:00:08 11/05/19 25 11/04/2024 CMP (MALE ) altv (SGPT) 25.0 U/L 13.0-6 9.0 normal Not Available [facility] [address] Mart[address]nez [facility] 1, [place], [address], 11/04/2024 11:00:08 11/05/1911/04/2024 CMP (MALE ) A/G ratio 1.5 ratio Not Available [facility] [address] [place] [address] [facility] 1, [place], [address], 11/04/2024 11:00:08 11/05/19 25 11/04/2024 CMP (MALE ) ALP phos 51.0 U/L 30.0-1 40.0 normal Not Available [facility] [address] [facility] 1, [place], [address], 11/04/2024 11:00:08 11/05/1911/04/2024 CMP (MALE ) calcium 9.8 mg/dL 8.4-10 .5 Not Available [facility] [address] [facility], [place], [address], 11/04/2024 11:00:08 11/05/1911/04/2024 CMP (MALE ) sodium 139.0 mmol/ L 136.0- 145.0 Not Available [facility] [address] [place] [address] [facility] 1, [place], [address], 11/04/2024 11:00:08 11/05/1911/04/2024 CMP (MALE ) potassium 4.4 mmol/ L 3.5-5. 1 Not Available [facility] [address] [place] [address] [facility] 1, [place], [address], 11/04/2024 11:00:08 11/05/19 25 11/04/2024 CMP (MALE ) chloride 101.0 mmol/ L 98.0-1 10.0 normal Not Available [facility] [address] [place] [address] [facility] 1, [place], [address], 11/04/2024 11:00:08 11/05/19 25 11/04/2024 CMP (MALE ) C02 23.0 mmol/ L 22.0-3 1.0 Not Available [facility] [address] Mart[address] [facility] 1, [place], [address], 11/04/2024 11:00:08 11/05/19 25 11/04/2024 CMP (MALE ) anion gap 15.0 calc Not Available [facility] [address] Mart[address] [facility] 1, [place], [address], 11/04/2024 11:00:08 11/05/1911/04/2024 CMP (MALE ) osmolality 293.4 calc Not Available [facility] [address] [facility] 1, [place], [address], 11/04/2024 11:00:08 11/05/1911/04/2024 CBC WBC 4.6 x10 4.5-10 .5 Not Available [facility] [address] [facility] 1, [place], [address], 11/04/2024 11:14:48 11/05/1911/04/2024 CBC RBC 3.97 x10 4.30-5 .90 low Not Available [facility] [address] [facility] 1, [place], [address], 11/04/2024 11:14:48 11/05/1911/04/2024 CBC HGB 12.7 g/dL 13.5-1 8.0 low Not Available [facility] [address] [facility] 1, [place], [address], 11/04/2024 11:14:48 11/05/1911/04/2024 CBC HCT 39.9 % 35.0-6 0.0 Not Available [facility] [address] G[address] Mart[address]nez [facility] 1, [place], [address], 11/04/2024 11:14:48 11/05/19 25 11/04/2024 CBC MCV 100.6 fL 80.0-9 9.9 high Not Available [facility] [address] [facility] 1, [place], [address], 11/04/2024 11:14:48 11/05/19 25 11/04/2024 CBC MCH 32.0 pg 27.0-3 2.0 Not Available [facility] [address] [facility] 1, [place], [address], 11/04/2024 11:14:48 11/05/1911/04/2024 CBC MCHC 31.9 g/dL 32.0-3 6.0 low Not Available [facility] [address] [facility] 1, [place], [address], 11/04/2024 11:14:48 11/05/1911/04/2024 CBC RDW 13.1 % 11.5-1 4.5 Not Available [facility] [address] [facility] 1, [place], [address], 11/04/2024 11:14:48 11/05/1911/04/2024 CBC plt 277.0 x10 150.0- 451.0 Not Available [facility] [address] [facility] 1, [place], [address], 11/04/2024 11:14:48 11/05/1911/04/2024 CBC lymphocytes % 29.4 % 20.0-5 0.0 Not Available [facility] [address] [facility] 1, [place], [address], 11/04/2024 11:14:48 11/05/1911/04/2024 CBC granulcytes % 56.8 % 30.0-7 0.0 Not Available [facility] [address] [facility] 1, [place], [address], 11/04/2024 11:14:48 11/05/1911/04/2024 CBC monocytes % 10.0 % 2.0-16 .0 Not Available [facility] [address] [place] [address] [address], [place], [address], 11/04/2024 11:14:48 11/05/1911/04/2024 CBC granulcytes# 2.6 x10 Not Nola ilable [facility] [address], [place], [address], 11/04/2024 11:14:48 11/05/19 25 11/04/2024 CBC lymphocytes # 1.3 x10 Not Available [facility] [address] [place] [address] [address], [place], [address], 11/04/2024 11:14:48 11/05/1911/04/2024 CBC monocytes # 0.5 x10 Not Avai lable [facility] [address] [place] [facility], [place], [address], 11/04/2024 11:14:48 11/05/1911/04/2024 HBA1C hemaglobin A1C 6.8 4.2-6. 5 high Not Available [facility] [address] [place] [address] [address], [place], [address], 11/04/2024 11:14:53 11/05/1911/04/2024 TSH TSH 12.78 uIU/m L 0.49-3 .82 high Not Available [facility] [address] [place] [facility], [place], [address], 11/04/2024 12:44:48 11/05/19 25 11/05/2024 URIC ACID uric acid 6.1 mg/dL 4.0-8. 0 normal Thera peuti c targe t for gout patie nts: <6.0 mg/dL Not Available [address], [address], 11/05/2024 13:58:13 11/05/19 25 11/05/2024 ALBUM IN, RANDO M URINE W/CRE ATINI NE creatinine, random urine 48 mg/dL 20-320 normal Not Available [address] [place] [address] [place], [address], 11/05/2024 13:58:14 11/05/1911/05/2024 ALBUM IN, RANDO M URINE W/CRE ATINI NE albumin, urine 16.4 mg/dL see note: normal Refer ence Range : Refer ence Range Not estab lishe d Not Available [address], [address], 11/05/2024 13:58:14 11/05/19 25 11/05/2024 ALBUM IN, [...] a diagn ostic categ ory. Not Available [address], [address], 11/05/2024 13:58:14 11/05/19 25 11/05/2024 C-JESSA CTIVE PROTE IN C-reactive protein <3.0 mg/L <8.0 normal Not Available [facility] [address] [place], [address], 11/05/2024 13:58:14 11/05/1911/05/2024 T4, FREE T4, free 0.8 NG/dL 0.8-1. 8 normal Not Available [facility] [address] [place], [address], 11/05/2024 13:58:14 11/05/1911/05/2024 B TYPE NATRI URETI [...] ol. 2002; 40:97 6-982 . Not Available [facility] [address] [place], [address], 11/05/2024 13:58:15 11/06/1911/05/2024 ESR (eryt hrocy te sedim entat ion rate) , blood SedRate 25 Not Available [facility] ([facility]) [address] [place], [address], 11/04/2024 10:05:43 11/19/1911/18/2024 CMP (MALE ) glucose 177.0 mg/dL 60.0-9 9.0 high Not Available [facility] [address]05 [facility] [address], [address], 11/18/2024 10:13:51 11/19/1911/18/2024 CMP (MALE ) BUN (blood urea nitrogen) 40.0 mg/dL 10.0-2 6.0 high Not Available [facility] [address] [facility] [address], [address], 11/18/2024 10:13:51 11/19/19 25 11/18/2024 CMP (MALE ) creatinine (serum) 1.9 mg/dL 0.4-1. 5 high Not Available [facility] [address], [place], [address], 11/18/2024 10:13:51 11/19/19 25 11/18/2024 CMP (MALE ) BUN/creatini ne ratio 21.05 ratio Not Available [facility] [address], [place], [address], 11/18/2024 10:13:51 11/19/1911/18/2024 CMP (MALE ) eGFR calculated 36.2 Not Available [facility] [address], [place], [address], 11/18/2024 10:13:51 11/19/19 25 11/18/2024 CMP (MALE ) total protein 7.5 g/dL 6.0-8. 5 Not Available [facility] [address] [facility] [address], [place], [address], 11/18/2024 10:13:51 11/19/19 25 11/18/2024 CMP (MALE ) total bilirubin 0.9 mg/dL 0.2-1. 3 Not Available [facility] [address] [facility] [address], [place], [address], 11/18/2024 10:13:51 11/19/19 25 11/18/2024 CMP (MALE ) albumin 4.1 g/dL 3.5-5. 5 Not Available [facility] [address] [facility] [address], [place], [address], 11/18/2024 10:13:51 11/19/19 25 11/18/2024 CMP (MALE ) globulin 3.4 calc Not Available [facility] [address] [address] [place], [address], 11/18/2024 10:13:51 11/19/1911/18/2024 CMP (MALE ) AST (SGOT) 63.0 U/L 0.0-46 .0 high Not Available [facility] [address] [facility] [address], [place], [address], 11/18/2024 10:13:51 11/19/1911/18/2024 CMP (MALE ) altv (SGPT) 48.0 U/L 13.0-6 9.0 normal Not Available [facility] [address] [facility] [address], [place], [address], 11/18/2024 10:13:51 11/19/1911/18/2024 CMP (MALE ) A/G ratio 1.2 ratio Not Available [facility] [address] [facility], [place], [address], 11/18/2024 10:13:51 11/19/1911/18/2024 CMP (MALE ) ALP phos 45.0 U/L 30.0-1 40.0 normal Not Available [facility] [address] [facility], [place], [address], 11/18/2024 10:13:51 11/19/1911/18/2024 CMP (MALE ) calcium 9.0 mg/dL 8.4-10 .5 Not Available [facility] [address] [facility], [place], [address], 11/18/2024 10:13:51 11/19/1911/18/2024 CMP (MALE ) sodium 134.0 mmol/ L 136.0- 145.0 low Not Available [facility] [address] [facility], [place], [address], 11/18/2024 10:13:51 11/19/1911/18/2024 CMP (MALE ) potassium 3.3 mmol/ L 3.5-5. 1 low Not Available [facility] [address] [facility] [address], [place], [address], 11/18/2024 10:13:51 11/19/19 25 11/18/2024 CMP (MALE ) chloride 98.0 mmol/ L 98.0-1 10.0 normal Not Available [facility] [address], [place], [address], 11/18/2024 10:13:51 11/19/1911/18/2024 CMP (MALE ) C02 26.0 mmol/ L 22.0-3 1.0 Not Available [facility] [address], [place], [address], 11/18/2024 10:13:51 11/19/1911/18/2024 CMP (MALE ) anion gap 10.0 calc Not Available [facility] [address] [facility] [address], [place], [address], 11/18/2024 10:13:51 11/19/1911/18/2024 CMP (MALE ) osmolality 290.2 calc Not Available [facility] [address] [facility], [place], [address], 11/18/2024 10:13:51 10/18/1910/15/2024 US, carlitos y No observ ation record ed. [email or web address] [facility] [address] [facility], [place], [address], 10/21/2024 12:34:46 Result Notes None recorded. Problems [...] ; acuity set as *; Not Available [facility] 3 03:10:27 Benign hyperten pauline 46951070 Completed 202010/22/2020 HTN - Status is Inactive ; 10/23/19 9:23AM by Nicole Chung PA-C, Annotati on/Adden dum; Promoted ; acuity set as *; Not Available [facility] 3 03:10:27 General examinat ion of patient Completed 202111/18/2021 GENERAL MEDICAL EXAM - Status is Inactive ; Recorded 11/19/19 12:44PM by Janis Jesus LPN, Annotati on/Adden dum; Promoted ; acuity set as *; Not Available [facility] 3 03:10:27 Body [facility] 25-29 [facility] 5[facility] Active 2022 BODY MASS INDEX (BMI) 28.0-28. 9, ADULT; Recorded 03/11/19 23 8:52AM by Janis Jesus LPN, Office Visit; Promoted ; acuity set as *; BMI 28.0-28. 9,ADULT - Status is Inactive ; Recorded 01/05/20 22 6:50AM by Naomi Long LPN, Annotati on/Adden dum; Promoted ; acuity set as *; ; Start Date : 01/05/20 22 [facility] 23:20:42 Aortic stenosis , non-rheu matic 022680267 Active 2022 SEVERE AORTIC STENOSIS ; Recorded [...] ; Start Date : 11/20/19 Radha garcía [facility] 5 23:20:43 Anemia 082679009 Active 2022 ANEMIA; Recorded 03/11/19 8:52AM by Janis Jesus LPN, Office Visit; Promoted ; acuity set as *; Radha garcía [facility] 5 23:20:43 Carotid artery stenosis 46561935 Active 2022 Radha garcía [facility] 5 23:20:43 Congesti ve heart failure 53536759 Active 2022 JANIS garcía [facility] 3 10:21:22 Nonexuda tive age-rela french macular degenera tion 382560291 Active 2022 JANIS garcía [facility] 3 10:22:00 History of peripher al arterial occlusiv e disease 309335994 Completed 202205/06/2024 Radha garcía [facility] 5 23:20:02 [facility] hyperten pauline 50640142 Active 2022 JANIS garcía, [facility] 5 11:22:59 Hyperlip idemia 07873713 Active 2022 JANIS JESUS null, [facility] 5 11:23:22 Angina pectoris 895929573 Completed 202205/06/2024 Radha Garcia null, [facility] 5 23:20:02 Chronic systolic heart failure 910222365 Active 2022 JANIS JESUS null, [facility] [place] 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 5 23:20:43 Nonexuda tive age-rela french macular degenera tion 631373073 Active 2022 Radha Garcia null, [facility] 5 23:20:43 Atrial fibrilla tion 47009657 Active 2023 JANIS JESUS null, [facility] 5 11:22:20 Low back pain 314164297 Active 2023 Radha Garcia null, [facility] 5 23:20:43 Leukopen ia 03066429 Active 2023 Radha Garcia null, [facility] 23:20:43 Chronic diastoli c heart failure 568310020 Active 2023 JANIS JESUS null, [facility] 5 11:22:34 Acute kidney injury 50042986 Completed 202305/06/2024 Radha Garcia null, [facility] 5 23:20:02 Thyroid stimulat ing hormone level above referenc e range 212875128 Active 2023 Radha Garcia null, [facility] 5 23:20:43 Infectio n of sebaceou s cyst 171208958 Completed 202305/06/2024 Radha Garcia null, [facility] 5 23:20:54 Rheumato id arthriti s 35606901 Active 2024 Radha Garcia null, [facility] 5 23:20:43 Peripher al vascular disease 005366050 Active 2024 Radha garcía, [facility] 5 23:20:43 Acute on chronic diastoli c heart failure 372064369 Active 2024 Radha Garcia null, [facility] 5 23:20:43 Chronic kidney disease due to type 2 diabetes mellitus 28358678408 8 Active 2024 Radha Garcia [facility] 5 12:18:38 Age related macular degenera tion 461030692 Active 2024 Radha Garcia [facility], [facility] 5 12:18:31 Chronic kidney disease stage 3B 041291726 Active 2024 JANIS JESUS [facility], [facility] 5 10:33:25 Maksim hematuri a 489956486 Active 2024 Radha Garcia [facility], [facility] 08/25/202 5 16:48:14 Prostati tis 5387815 Active 2024 [facility] 16:48:20 Dysuria 42153228 Active 2024 Radha Garcia [facility] 5 14:02:50 Acute urinary tract infectio n 622738335 Active 2024 JANIS JESUS [facility] 14:43:11 Problem Notes None recorded. Procedures Surgical History Date Name Laterality Status Provider Name and Address Organization Details Recorded Time coronary artery bypass grafts x 2 completed [facility] 08/03/2022 10:25:38 tonsillectomy completed [facility] 08/03/2022 10:25:47 Mohs surgery completed [facility] 08/03/2022 10:26:13 replacement of aortic valve completed [facility] 08/03/2022 10:26:52 appendectomy completed [facility] 05/06/2024 23:21:08 cardiac pacemaker procedure completed [facility] 05/06/2024 23:21:25 Imaging Results None recorded. Procedure Notes None recorded. Medical Equipment None Reported. Allergies Allergen ID Allergen Name Allergen Category Reaction Reaction Severity Criticality Documentation Date Start Date Code Code System Note Provider Name and Address Organization Details Recorded Time 1012 Product containin g penicilli n (product) medicatio n Not available Not available Not available 05/11/2022 89854 8001 SNOMED Radha Radha [facility] 3 09:16:51 1013 allopurin ol medicatio n Not available Not available Not available 05/11/2022 519 RxNorm Radha garcía, [facility] 3 09:17:18 1014 ciproflox acin medicatio n Not available Not available Not available 05/11/2022 2551 RxNorm Radha garcía, [facility] 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 4 10:04:36 04760 lisinopri l medicatio n cough Not available Not available 09/03/2022 78165 RxNorm JANIS garcía, [facility] 4 10:13:16 86184 simvastat in medicatio n Not available Not available Not available 09/03/2022 25290 RxNorm [facility] 4 10:13:20 Medications Name [...] Updated DateTime 5 176.53 cm 30.9 kg/m2 08310.5 8 g 98.1 [degF] 91 /min 96 % 96 % 110/62 mm[Hg] JANIS JESUS [facility] 10:28:32 Date Recorded Body height Body mass index (BMI) Body weight Body temperature Heart rate Oxygen saturation Oxygen saturation in Arterial blood by Pulse oximetry Systolic And Diastolic Provider Name and Address Organization Details Last Updated DateTime 176.53 cm 31 kg/m2 30555.1 7 g 97.4 [degF] 92 /min 94 % 94 % 128/78 mm[Hg] Radha Garcia [facility] 12:29:50 Date Recorded Body height Body mass index (BMI) Body weight Body temperature Heart rate Oxygen saturation Oxygen saturation in Arterial blood by Pulse oximetry Systolic And Diastolic Provider Name and Address Organization Details Last Updated DateTime 5 176.53 cm 31.3 kg/m2 67923.3 6 g 97.6 [degF] 95 /min 97 % 97 % 110/66 mm[Hg] JANIS JESUS [facility] 09:30:54 Social History Question Answer Notes LastModified by Organizat ion Details LastModified Time Tobacco Smoking Status Never Smoker JANIS JESUS [facility] 08/03/2022 10:25:09 What Was The Date Of Your Most Recent Tobacco Screening? 08/07/2024 [email or web address] Information not available 08/07/2024 Sex: Unknown Functional Status Question Answer Note LastModified by Organization D etails LastModified Time Do you or have you ever used any other forms of tobacco or nicotine? No [email or web address] Information not available 04/26/2023 Do you or have you ever used any nicotine-free cigarettes, vape, or chewing tobacco? No [email or web address] Information not available 09/20/2023 Mental Status None recorded. Family History Relationship Description Onset Age of this Age Resolved Age Notes LastModified by Organization Details LastModified Time Father Cerebrovascu lar accident [email or web address] Not available 10:13:59 Mother Coronary atherosclero sis [email or web address] Not available 05/01 10:14:13 Medical History No medical history recorded. Immunizations Vaccine Type Date Status Note Provider Nam e and Address Organization Details Recorded Time Influenza, split virus, trivalent, preservative 8 completed JANIS garcía [facility] 04/26/2023 10:04:31 Influenza, split virus, trivalent, preservative 6 completed Not Available [facility] 09/03/2022 02:52:04 Influenza, split virus, trivalent, preservative 7 completed Not Available [facility] 09/03/2022 02:52:04 pneumococcal polysaccharide PPV23 7 completed Not Available [facility] 09/03/2022 02:52:04 Pneumococcal conjugate PCV 13 7 completed Not Available [facility] 09/03/2022 02:52:04 zoster live 7 completed Not Available [facility] 09/03/2022 02:52:05 Influenza, adjuvanted, trivalent, PF 5 completed JANIS garcía, [facility] 11/19/2024 11:55:16 Influenza, high-dose, quadrivalent, PF 1 completed JANIS garcía [facility] 04/26/2023 10:04:31 Influenza, high-dose, quadrivalent, PF 2 completed JANIS garcía [facility] 04/26/2023 10:04:31 COVID-19, mRNA, LNP-S, PF, 30 mcg/0.3 mL dose 1 completed JANIS JESUS null, [facility] 04/26/2023 10:04:31 COVID-19, mRNA, LNP-S, PF, 30 mcg/0.3 mL dose 1 completed JANIS JESUS null, [facility] 04/26/2023 10:04:31 COVID-19, mRNA, LNP-S, PF, 30 mcg/0.3 mL dose 2 completed JANIS JESUS null, [facility] 04/26/2023 10:04:31 COVID-19, mRNA, LNP-S, PF, 30 mcg/0.3 mL dose 1 completed JANIS JESUS null, [facility] 04/26/2023 10:04:31 COVID-19, mRNA, LNP-S, bivalent, PF, 30 mcg/0.3 mL dose 2 completed JANIS JESUS null, [facility] 04/26/2023 10:04:31 COVID-19, mRNA, LNP-S, PF, myriam-sucrose, 30 mcg/0.3 mL 3 completed JANIS JESUS null, [facility] 04/26/2023 10:04:31 Tdap 3 completed JANIS JESUS null, [facility] 04/26/2023 10:04:31 Influenza, high-dose, trivalent, PF 8 completed JANIS JESUS null, [facility] 04/26/2023 10:04:31 Hep A, adult 3 completed JANIS JESUS null, [facility] 04/26/2023 10:04:31 COVID-19, mRNA, LNP-S, PF, myriam-sucrose, 30 mcg/0.3 mL 4 completed JANIS JESUS null, [facility] 02/14/2024 11:20:35 Influenza, adjuvanted, trivalent, PF 4 completed Radhakori Garcia null, [facility] 11/30/2023 12:00:34 Past Encounters Encounter ID Performer Location Encounter Start Date Encounter Closed Date Diagnosis/Indication Diagnosis SNOMED-CT Code Diagnosis ICD10 Code Diagnosis IMO Codes Diagnosis Note [id number] Jerardo Chung MD [facility] ([facility]) [address] [place] [address] [id number] 5 05/11/2022 08:59:58 05/19/2022 20:00:54 Adult health examination 990777658 Z00.01 Gout 06539882 M10.9 Controlled atrial fibrillation 691187797 I48.91 [id number] Jerardo Chung MD [facility] ([facility]) [address] [place] [address] [id number] 5 07/27/2022 08:59:30 07/27/2022 11:09:15 [id number] Jerardo Chung MD [facility] ([facility]) [address] [place] [address] [id number] 5 08/03/2022 10:16:09 08/03/2022 11:48:52 Chronic systolic heart failure 076168566 I50.22 Angina pectoris 55479473 0 I20.8 Hyperlipidemia 44611423 E78.5 he is very stable and doing quite well overall Essential hypertension 57340985 I10 History of peripheral arterial occlusive disease 607085755 Z86.79 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 9321211015 98493 M06.09 [id number] Jerardo Chung MD [facility] ([facility]) [address] [place] [address] [id number] 5 01/18/2023 09:02:52 01/18/2023 12:39:39 Anemia 364811729 D64.9 Essential hypertension 23435334 I10 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 2912325740 10287 M06.09 History of peripheral arterial occlusive disease 229051450 Z86.79 [id number] Jerardo Chung MD [facility] ([facility]) [address] [place] [address] [id number] 5 01/25/2023 08:57:48 01/25/2023 10:13:31 Aortic stenosis, non-rheumatic 308592816 I35.0 Carotid ar mario stenosis 20467380 I65.29 Chronic sy stolic heart failure 535076993 I50.22 Essential hypertension 10451446 I10 History of peripheral arterial occlusive disease 562395570 Z86.79 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 8427750478 88728 M06.09 Angina pectoris 74423149 0 I20.9 Anemia 067529372 D64.9 Type 2 eric betes mellitus with peripheral angiopathy 424469929 E11.51 Nonexudati ve age-related macular degeneration 281396725 H35.3130 [id number] LORY ARCE [facility] ([facility]) [address] [place] [address] [id number] 5 02/11/2023 10:51:32 02/11/2023 11:49:44 Pneumonia 718443342 J18.9 [id number] Jerardo Chung MD [facility] ([facility]) [address] [place] [address] [id number] 5 02/16/2023 10:44:35 02/16/2023 11:38:10 Chronic systolic heart failure 899050563 I50.22 Angina pectoris 91457037 0 I20.89 Hyperlipidemia 57059016 E78.5 he is very stable and doing quite well overall Essential hypertension 58385052 I10 History of peripheral arterial occlusive disease 297367431 I73.9 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 Patient was provided with printed mobility-a ppropriate stretches to target the area and recommende d to do those stretches as tolerated at home. Can use topical menthol cream and massage of the area for symptomati c treatment. HEP demonstrat ed f/u if not improving [id number] Jerardo Chung MD [facility] ([facility]) [address] [place] [address] [id number] 5 05/02/2023 10:09:43 05/02/2023 12:06:35 Low back pain 375086730 M54.51 resolved, leg pain remains Iliotibial band friction syndrome 823839339 M76.31 at last visit the patient was [...] did nothing. Pain of right thigh 3169 542052 50064 M79.661 [id number] Jerardo Chung MD [facility] ([facility]) [address] [place] [address] [id number] 5 05/12/2023 10:44:34 05/12/2023 12:07:31 Low back pain 076652237 M54.51 we discussed every single nuance of his life how many minutes to walk at a time how to stand and how to sleep and how to sit and when to move and etc. dayna has many great questions. [id number] Jerardo Chung MD [facility] ([facility]) [address] [place] [address] [id number] 5 05/17/2023 10:42:25 05/17/2023 16:07:24 Muscle spasm of thoracic back 1725984411 96955 M62.830 trigger point injection given in the right thoracic paraspinou s muscles. he tolerated it well and it completely relieved his symptoms. he is moving exceptiona lly well at the knee hip and back .marcaine and lidocaine 2% without epinephrin e [id number] Jerardo Chung MD [facility] ([facility]) [address] [place] [address] [id number] 5 06/06/2023 09:42:50 06/06/2023 12:30:11 Diabetes mellitus 51524594 E11.9 Near syncope 847719232 R 55 Digoxin le [facility] 368405903 Z51.81 [id number] Jerardo Chung MD [facility] ([facility]) [address] [place] [address] [id number] 5 06/12/2023 10:33:26 06/12/2023 14:22:37 [id number] Jerardo Chung MD [facility] ([facility]) [address] [place] [address] [id number] 5 06/15/2023 10:27:11 06/15/2023 15:14:37 Impacted cerumen in left ear 1345179636 363731 H61.22 at his baseline state walking well today. happy and alertvalve sounds unchangdct abrrrleft tm impacted with soft cerumenrem gabrielle without difficulty he toleratedt his well [id number] Jerardo Chung MD [facility] ([facility]) [address] [place] [address] [id number] 5 06/28/2023 09:48:27 06/28/2023 10:55:21 Prolapsed lumbar intervertebral disc 487756615 M51.26 Hypertrophy of nail 3065 4002 L60.2 Angina pectoris 28387180 0 I20.89 [id number] Jerardo Chung MD [facility] ([facility]) [address] [place] [address] [id number] 5 07/12/2023 11:18:58 07/12/2023 12:45:21 Fall in home 02654912 Y92.009 discontinu e alleve, please. Loss of appetite 5423219 6 R63.0 Lightheadedness 11054621 8 R42 Pain of ri ght lower leg 4630223192 83840 M79.661 Low back pain 259415957 M54.51 [id number] Jerardo Chung MD [facility] ([facility]) [address] [place] [address] [id number] 5 07/19/2023 10:53:38 07/19/2023 12:03:26 Near syncope 731852521 R55 recent carotid artery u/s no significan t stenosis. his pressures are back up after stopping his isosorbide . he has no chest discomfort or pain since stopping isosorbide . Loss of appetite 4356722 6 R63.0 his chronic pain is doing reasonably well since switching to hydrocodon e.his pain is now the l3- l4 distributi ond/c of naproxen has caused his stomach to feel better and appetite to improvehe is eating well now. 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 Atrial fibrillation 4943 6004 I48.91 ?tick ?pmr doxy, prednisone taper off d/c midodrine Acute kidney injury 1466 9001 N17.9 improving and back to baseline [id number] NICOLE CHUNG PA-C [facility] ([facility]) [address] [place] [address] [id number] 5 09/06/2023 12:39:56 09/19/2023 18:45:36 Congestive heart failure 81144630 I50.9 d/c home on 09-08-23 no home health follow up with Dr Chung in 2 weeks. [id number] Jerardo Chung MD [facility] ([facility]) [address] [place] [address] [id number] 5 09/20/2023 12:37:34 09/20/2023 14:58:51 Chronic systolic heart failure 952033182 I50.22 Atrial fibrillation 4943 6004 I48.91 Essential hypertension 30322994 I10 History of peripheral arterial occlusive disease 863991068 I73.9 Gout 75121718 M10.9 [id number] Jerardo Chung MD [facility] ([facility]) [address] [place] [address] [id number] 5 09/28/2023 14:12:21 09/29/2023 10:49:25 Atrial fibrillation 35163869 I48.91 Aortic alex nosis, non-rheumatic 996578119 I35.0 Chronic sy stolic heart failure 877845689 I50.22 Acute on c hronic diastolic heart failure 839200379 I50.33 [id number] RADHA MENDOZA APRN [facility] ([facility]) [address] [place] [address] [id number] 5 09/30/2023 10:42:40 09/30/2023 15:36:55 Cellulitis of left lower limb 3573003054 2931631 L03.116 Bilateral lower leg edema 025737438 R60.0 [id number] Jerardo Chung MD [facility] ([facility]) [address] [place] [address] [id number] 5 10/02/2023 14:24:33 10/02/2023 16:01:57 Congestive heart failure 50116024 I50.9 the feet are not weepinghis edema is unchanged will add aldactone watching bp carefully and repeat his bmp next week and recheckhe is not orthopneic nor short of breath. [id number] Jerardo Chung MD [facility] ([facility]) [address] [place] [address] [id number] 5 10/04/2023 09:42:40 10/04/2023 10:53:28 Congestive heart failure 57557454 I50.9 anticipate increasing to furosemide 60 mg q am and 40 mg q afternoon [id number] Jerardo Chung MD [facility] ([facility]) [address] [place] [address] [id number] 5 10/11/2023 09:52:32 10/11/2023 11:23:53 Acute on chronic diastolic heart failure 844117211 I50.33 Congestive heart failure 73540804 I50.9 anticipate increasing to furosemide 60 mg q am and 40 mg q afternoon he gets a strong effect for 6 hours after each dose then almost none. [id number] Jerardo Chung MD [facility] ([facility]) [address] [place] [address] [phone] 5 10/16/2023 11:30:47 10/17/2023 11:04:29 Essential hypertension [id number] I10 [id number] Jerardo Chung MD [facility] ([facility]) [address] [place] [address] [phone] 5 10/18/2023 10:12:13 10/18/2023 12:55:45 [id number] Jerardo Chung MD [facility] ([facility]) [address] [place] [address] [phone] 5 10/30/2023 10:25:06 10/31/2023 10:45:05 Essential hypertension 18136413 I10 [id number] Jerardo Chung MD [facility] ([facility]) [address] [place] [address] [phone] 5 11/01/2023 10:32:00 11/01/2023 11:56:34 Acute on chronic diastolic heart failure 603531337 I50.33 Body mass index 25-29 - overweight 987689167 Z68.28 [id number] Jerardo Chung MD [facility] ([facility]) [address] [place] [address] [phone] 5 11/13/2023 10:04:47 11/14/2023 10:16:40 Congestive heart failure 59675197 I50.9 anticipate increasing to furosemide 60 mg q am and 40 mg q afternoon he gets a strong effect for 6 hours after each dose then almost none. [id number] Jerardo Chung MD [facility] ([facility]) [address] [place] [address] [phone] 5 11/15/2023 10:13:17 11/15/2023 13:46:01 [id number] Jerardo Chung MD [facility] ([facility]) [address] [place] [address] [phone] 5 11/30/2023 10:37:15 11/30/2023 17:34:30 Administration of influenza vaccine 48490391 Z23 [id number] Jerardo Chung MD [facility] ([facility]) [address] [place] [address] [phone] 5 12/13/2023 10:51:14 12/14/2023 10:17:25 Essential hypertension 24268259 I10 [address] imulating hormone level above reference range 236549761 R94.6 [id number] Jerardo Chung MD [facility] ([facility]) [address] [place] [address] [phone] 5 12/15/2023 10:14:33 12/15/2023 14:16:11 Congestive heart failure 33122844 I50.9 anticipate increasing to furosemide 60 mg q am and 40 mg q afternoon he gets a strong effect for 6 hours after each dose then almost none. Carotid ar mario stenosis 33671066 I65.29 Chronic sy stolic heart failure 225376366 I50.22 Chronic di astolic heart failure 419169342 I50.32 History of peripheral arterial occlusive disease 786058890 I73.9 [id number] Jerardo Chung MD [facility] ([facility]) [address] [place] [address] [phone] 5 01/17/2024 11:01:54 01/18/2024 13:04:01 Dyspnea 855439215 R06.02 [id number] Jerardo Chung MD [facility] ([facility]) [address] [place] [address] [phone] 5 01/23/2024 09:33:09 01/23/2024 11:11:55 Infection of sebaceous cyst 115108704 L72.3 [id number] Jerardo Chung MD [facility] ([facility]) [address] [place] [address] [phone] 5 02/14/2024 10:47:55 02/14/2024 12:57:44 Congestive heart failure 15612269 I50.9 Atrial fibrillation 4943 6004 I48.91 will resume metoprolol to try to increase cardiac output but may need ant-arrhyt hmic therapy. Essential hypertension 53127978 I10 Rheumatoid arthritis 698 32965 M06.09 Peripheral vascular disease 413583535 I73.9 Gout 86151552 M10.9 d/c uloric will recheck uric acid off of it. Acute on c hronic diastolic heart failure 312220791 I50.33 [id number] Jerardo Chung MD [facility] ([facility]) [address] [place] [address] [phone] 5 02/21/2024 10:20:45 02/22/2024 11:48:27 Essential hypertension 35061889 I10 Anemia 478918832 D64.[address] imulating hormone level above reference range 345283054 R94.6 Gout 11020025 M10.9 d/c uloric will recheck uric acid off of it. [id number] Jerardo Chung MD [facility] ([facility]) [address] [place] [address] [phone] 5 02/21/2024 10:36:07 02/21/2024 13:58:28 Gout 04291169 M10.9 uloric d/cno sign of gouturic acid is pendinghe is eating well Chronic ki dney disease stage 3A 225348101 N18.31 Atrial fibrillation 4943 6004 I48.91 we resumed metoprolol but HR remains high and bp is too low to increase it. he needs rhythm control. will contact his cardiologi st today and develop a plan. [id number] Jerardo Chung MD [facility] ([facility]) [address] [place] [address] [phone] 5 03/13/2024 10:34:47 03/14/2024 11:23:07 Cardiomyopathy 58560875 I42.8 [id number] Jerardo Chung MD [facility] ([facility]) [address] [place] [address] [phone] 5 04/01/2024 10:44:24 04/02/2024 12:56:31 Cardiomyopathy 93116575 I42.8 [id number] Jerardo Chung MD [facility] ([facility]) [address] [place] [address] [phone] 5 05/02/2024 09:01:41 05/02/2024 15:35:31 Near syncope 418733655 R55 his pressures are back up after stopping his isosorbide . he has no chest discomfort or pain since stopping isosorbide . CTA this year showed no restricted blood flow 3OZA CT/CT angio headneck* 87335/7073 8IMPRESSIO N:1. No evidence intracrani al hemorrhage or mass effect. Ventricula r system and basilar cisterns are patent. Intracrani al vascular calcificat ion.2. Less than 50% ICA stenosis bilaterall y. Retrophary ngeal course of both cervical ICAs.3. RIGHT dominant vertebral artery.4. No proximal flow-limit ing intracrani al stenosis.5 . Mild intracrani al atheromato us disease. Chronic di astolic heart failure 558657709 I50.32 Fatigue 24513268 R53.83 Gout 00986336 M10.9 uloric d/cno sign of gouturic acid is pendinghe is eating well [id number] Jerardo Chung MD [facility] ([facility]) [address] [place] [address] [phone] 5 05/13/2024 10:11:59 05/13/2024 13:12:18 Age related macular degeneration 785426244 H35.3221 updating his active dx Chronic ki dney disease stage 3A 588348808 N18.31 updating active dx list Near syncope 531976783 R 55 resolved Chronic di astolic heart failure 272564504 I50.32 stable with decreased lasix on maximal medical therapy Fatigue 62418634 R53.83 Gout 23227602 M10.9 uric acid is elevated but had problems with uloric in the past. [id number] Jerardo Chung MD [facility] ([facility]) [address] [place] [address] [phone] 5 05/21/2024 10:43:21 05/21/2024 12:20:40 Blood in urine 95149399 R31.9 [id number] eJrardo Chung MD [facility] ([facility]) [address] [place] [address] [phone] 5 07/05/2024 10:01:48 07/05/2024 13:18:41 Chronic kidney disease stage 3B 207051100 N18.32 2335991723 Low back pain 510956734 M54.51 the patient is home bound due [...] candidate for therapy. Unsteady when walking 22 925815 R26.81 4729933666 [id number] Jerardo Chung MD [facility] ([facility]) [address] [place] [address] [phone] 5 08/07/2024 10:42:19 08/08/2024 13:27:20 Orthostatic hypotension 39320430 I95.1 3436 Chronic low back pain 27 5771766 M54.42 M54.41 G89.29 57408791 the patient is home bound due to [...] for therapy. 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 We will start antibiotic s. Pt will increase oral fluids. Return to office with no improvemen t or any problems. Go to ER with severe worsening or severe problems.W e will obtain urine culture [id number] Jerardo Chung MD [facility] ([facility]) [address] [place], [place] [address]80305-204 5 09/26/2024 10:32:52 09/30/2024 12:03:09 Maksim hematuria 263278055 R31.0 322344 on blood thinners. he is able to void not clotting. previous culture neg. repeat culture will be sent. was nitrite pos. micro today. Prostatitis 4525798 N41. 9 26885 [id number] RADHA MENDOZA APRN [facility] ([facility]) [address] [place] [address] 5 09/29/2024 14:01:51 10/01/2024 08:13:50 History of ear disorder 777480020 Z86.69 63342608 [id number] Jerardo Chung MD [facility] ([facility]) [address] [place] [address] 5 09/30/2024 10:17:22 10/01/2024 10:43:31 Bleeding of ear canal 698416279 H92.20 8229378942 [id number] Jerardo Chung MD [facility] ([facility]) [address] [place], [place] [phone] 5 10/15/2024 10:36:55 10/16/2024 13:18:17 [id number] Jerardo Chung MD [facility] ([facility]) [address] [place] [address] 5 10/16/2024 10:18:29 11/06/2024 10:55:07 Acquired hypothyroidism 809429054 E03.9 95768 Acute urin arelis tract infection 805995615 N39.0 022750 [id number] Jerardo Chung MD [facility] ([facility]) [address] [place], [place] [address]80[address] 5 10/21/2024 12:18:56 10/21/2024 13:52:57 Mass of urinary bladder 354978395 N32.89 958613 suspicious for posterior bladder mass.this patient is more likely than not going to want to follow conservati ve treatment. however, without cystoscopy it is very hard to guide him. he is not currently bleeding. he requires anticoagul ation for cardiac treatment. will continue that for now. Lesion of ear canal 3001 55797 D49.2 4679419 [id number] Jerardo Chung MD [facility] ([facility]) [address] [place] [address] [phone] 5 11/04/2024 10:02:09 11/05/2024 12:01:47 Essential hypertension 15243444 I10 [address] imulating hormone level above reference range 583944130 R94.6 Anemia 956538891 D64.9 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 2780076491 79528 M06.09 stable a Gout 27524147 M10.9 694682368 uric acid is elevated but had problems with uloric in the past. 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 Congestive heart failure 04468106 I50.9 Maksim hematuria 46935460 5 R31.0 726543 resolved. his cystoscope is in the works [...] REPLACEMENT/A DVANTAGE - PPO) Dayna Salgado Jr [id number] Dayna Salgado 09/12/2024 1 [id number] (MEDIC[place]PLACEMENT/A DVANTAGE - PPO) [id number] Dayna Salgado [id number] Dayna Salgado 11/16/2024 1 [id number] (MEDICARE REPLACEMENT/A DVANTAGE - PPO) Dayna Salgado Jr [id number] Dayna Salgado Notes Date Note Type Note [...] for an elevated TSH. Jerardo Chung MD [address] [place] [address], [phone], [facility] 11/05/2024 13:14:25 10/21/2024 text/html Pt is here today to go over his ultrasound results. Note from u/s: unfortunately there was concern of a bladder mass. He would also like to have his ear examined. Jerardo Chung MD [address] [place] [address], [phone], [facility] 10/21/2024 12:49:35 11/19/2024 text/html Care Management [...] responded well ROS as noted in the [facility] hospital f/u: Pt reports that he left AMA because they weren't giving him his medications and he wasn't improving. They had him on oxygen in the hospital, but when he left, was not prescribed any oxygen. Patient feels that he needs it at home, not all of the time. his urine flow is at baseline. no dysuria. hematuria resolved. Jerardo Chung MD [address] [place] [address], [phone], [facility] 11/19/2024 10:04:37
--- NOTE | 2024-11-24 15:25 | USR_ITS ---
PROCEDURE INFORMATION: Exam: US Abdomen, Limited; Right Upper Quadrant Exam date and time: 11/24/2024 3:56 PM Age: 84 years old Clinical indication: Abdominal pain; Localized; Right upper quadrant (ruq); Prior surgery; Surgery date: 6+ months; Surgery type: HX of appendectomy; Additional info: Ruq pain TECHNIQUE: Imaging protocol: Real time ultrasound of the abdomen with image documentation. Limited exam focused on the right upper quadrant. COMPARISON: CT abdomen con [id number] 11/24/2024 11:26 AM FINDINGS: Liver: Hepatomegaly. No masses. Gallbladder: Normal. No gallstones. There is no gallbladder wall thickening. Biliary ducts: Normal. No stones. No dilation. Pancreas: Not well visualized Right kidney: Renal cysts. No mass. No hydronephrosis. Soft tissues: Also seen on the prior CT there is a intramuscular lesion within the right lower chest wall. Findings may relate to intramuscular neoplasm or fluid collections such as abscess. US/US gall bladder 21281 IMPRESSION: 1. Right lower chest wall focal fluid collection which may represent intramuscular abscess although etiologies such as neoplasm is not entirely excluded. 2. Intra-abdominal contents of the right upper quadrant are unremarkable except for some mild hepatomegaly.
--- NOTE | 2024-11-24 15:32 | W.ED.ABDPA2 ---
HPI - Abdominal Pain General: Chief Complaint: Abdominal Pain Stated Complaint: Stomach pain Time Seen by Provider: 11/24/24 15:16 Source: patient and old records reviewed Mode of arrival: wheelchair Limitations: no limitations History of Present Illness: Patient is an 84-year-old male who presents to the emergency department for right upper quadrant abdominal pain beginning a few hours ago. The patient was discharged from the hospital this afternoon, he was admitted on 11/15 and diagnosed with fungal UTI while in the hospital, discharged set up to undergo micafungin infusions at the infusion center, and discharged stable condition ultimately today. He also had received an abdomen and pelvis CT this morning, results of this reviewed at this time showing a left renal mass that advised MRI, however no significant abdominal findings. He was constipated. Patient tells me that he had a bowel movement this morning that it was normal. The pain is only to the right upper quadrant area, he states he was receiving shots in the abdomen but unable to specify on this. He does not report any fevers or chills at home. No nausea or vomiting. He states that the pain has prevented him from pulling himself to his stand. He notes that when he got home, he could not get comfortable and decided to get the pain checked out. Denies ever having this issue before. He endorses concern over his gallbladder. He arrives with IV in his left hand, he states this was for his upcoming infusions. His vitals are completely stable at this time, afebrile and overall he is nontoxic-appearing. MD elicited complaint: abdominal pain Pertinent past history: past UTI Onset (ago): hour(s) Pain Consistency: constant Location: RUQ Severity: severe Quality: stabbing Radiation: none Associated Symptoms: Denies bloating, change in stool character, chills, constipation, diarrhea, dysuria, fever(s), hematochezia, nausea and vomiting Treatments prior to arrival: other (Tylenol) Related Data Home Medications ?Medication ?Instructions ?Recorded ?Confirmed ascorbic acid (vitamin C) 500 mg 500 mg PO DAILY 02/13/19 11/21/24 tablet (Vitamin C) ferrous gluconate 324 mg (37.5 mg 324 mg PO DAILY 02/13/19 11/21/24 iron) tablet glucosamine HCl 1,500 mg tablet 1,500 mg PO DAILY 06/17/19 11/21/24 sour kumar extract 1,000 mg 1,000 mg PO DAILY 06/16/20 11/21/24 capsule (Tart Kumar Extract) multivit,Ca,ddnn-AH-chnrwquh-lutn 1 tab PO DAILY 06/21/23 11/21/24 18 mg-500 mcg-300 mcg-250 mcg tablet omega-3 fatty acids 1,000 mg 1,000 mg PO BID 06/21/23 11/21/24 capsule vitamin B complex 1 tab PO DAILY 06/21/23 11/21/24 potassium citrate 99 mg capsule 99 mg PO BID 08/18/23 11/21/24 metoprolol succinate 25 mg 12.5 mg PO DAILY 02/29/24 11/21/24 tablet,extended release 24 hr furosemide 40 mg tablet See Rx Instructions .Route .COMPLEX 10/10/24 11/21/24 rosuvastatin 20 mg tablet 20 mg PO BEDTIME 10/10/24 11/21/24 sacubitril 49 mg-valsartan 51 mg 1 tab PO BID 10/10/24 11/21/24 tablet (Entresto) spironolactone 25 mg tablet 12.5 mg PO QAM 11/06/24 11/21/24 Previous Rx's ?Medication ?Instructions ?Recorded clopidogrel 75 mg tablet (Plavix) 75 mg PO DAILY #90 tabs 01/18/23 magnesium chloride 64 mg 64 mg PO BID #180 tabs 01/18/23 (magnesium chloride) tablet,delayed release (Mag 64) Eliquis 5 mg tablet (apixaban) 5 mg PO BID #180 tabs 01/11/24 amiodarone 200 mg tablet 200 mg PO DAILY #180 tabs 04/03/24 dapagliflozin propanediol 10 mg 10 mg PO DAILY #90 tabs 06/05/24 tablet (Farxiga) colchicine 0.6 mg tablet 0.6 mg PO DAILY #90 tabs 08/26/24 sulfasalazine 500 mg tablet 1,000 mg (2 x 500 mg) PO BID #360 08/26/24 tabs levothyroxine 50 mcg tablet 75 mcg (1.5 x 50 mcg) PO QAM #30 11/17/24 tabs micafungin 100 mg intravenous 100 mg IV Q24H 11/24/24 solution (Mycamine) tamsulosin 0.4 mg capsule 0.4 mg PO DAILY #30 caps 11/24/24 Allergies Allergy/AdvReac Type Severity Reaction Status Date / Time ciprofloxacin Allergy Unknown unknown Verified 08/26/24 10:52 Penicillins Allergy Unknown unknown Verified 08/26/24 10:52 simvastatin Allergy unknown Verified 08/26/24 10:52 allopurinol AdvReac itching Verified 08/26/24 10:52 lisinopril AdvReac cough Verified 08/26/24 10:52 Review of Systems General: Reports: 10 or more systems reviewed and unremarkable except in HPI and below Const: Denies: fever(s), chills, change in appetite, change in weight or diaphoresis ENMT: Denies: throat pain or hoarseness Card: Denies: chest pain, palpitations or lightheadedness Resp: Denies: dyspnea, productive cough or wheezing GI: Reports: abdominal pain; Denies: nausea, vomiting, diarrhea, constipation, bloating, change in stool character or hematochezia : Denies: flank pain, difficulty urinating, dysuria, urinary frequency or urinary urgency Musc: Denies: neck pain or back pain Skin/Breast: Denies: rash or new lesions Neuro: Denies: headache(s) or dizziness PFSH ED PFSH: Medical History ESBL (extended spectrum beta-lactamase) producing bacteria infection History of nonmelanoma skin cancer CVA (cerebral vascular accident) CKD (chronic kidney disease) stage 3, GFR 30-59 ml/min Nonsustained ventricular tachycardia Pulmonary valve regurgitation Hypothyroidism Atrial fibrillation Lumbar stenosis with neurogenic claudication Degenerative disc disease Vertebral artery stenosis Aortic aneurysm Weakness Weakness of both lower extremities Lactic acidosis Fever of unknown origin Acute urinary retention Leg weakness Gout COVID-19 vaccine administered Macular degeneration Seropositive rheumatoid arthritis of multiple sites Immunization counseling High risk medication use Osteoarthritis of knees, bilateral Inflammatory arthritis Gout, arthritis Edema, peripheral Coronary arteriosclerosis after coronary artery bypass grafting CABG x2 (OLSON to LAD and SVG to OM, 05/08/2008) Cardiomyopathy LVEF has decreased from 45% to 35% by echocardiogram. Cataract Cardiac arrhythmia Pacemaker Dual-chamber Mixed hyperlipidemia last lipid panel 2020: Cholesterol 93, triglycerides 78, LDL 55. Thoracic aneurysm without mention of rupture Ascending aortic aneurysm 4.4cm by CT 07/2017 Essential hypertension Surgical History History of surgical removal of ganglion cyst Hx of cataract surgery S/p TAVR (transcatheter aortic valve replacement), bioprosthetic Hx of CABG Hx of appendectomy H/O foot surgery Family History Mother Dementia Other CAD (coronary artery disease) Diabetes Hyperlipidemia Hypertension Stroke Denies family history of Clotting disorder Psychiatric illness Chronic kidney disease (CKD) Suicide Anesthesia complication Bleeding disorder Family history of premature coronary artery disease Lung disease Cancer Social History Smoking and tobacco/nicotine status: never used tobacco/nicotine Alcohol intake: never Substance/Drug Use: never Household members: significant other Housing: House Physical Exam Const: COMMON NORMALS: no acute distress, patient oriented x3, no limitations, healthy appearing, alert and well nourished GENERAL APPEARANCE: cooperative and comfortable ORIENTATION/CONSCIOUSNESS: Yes awake OTHER: nontoxic Neck/C-Spine: COMMON NORMALS: full ROM, supple and no meningeal signs Resp: COMMON NORMALS: normal respiratory effort, No retractions, No use of accessory muscles and clear to auscultation bilaterally AUSCULTATION: clear to auscultation bilaterally, no crackles, no rales, no rhonchi and no wheezes Cardio: COMMON NORMALS: regular rate, regular rhythm, No gallops present (Cardio), No clicks present (Cardio), No murmurs present (Cardio) and No rub (Cardio) RATE: regular rate RHYTHM: regular rhythm GI: COMMON NORMALS: no masses INSPECTION: Yes central obesity AUSCULTATION: Yes normoactive bowel sounds PALPATION: Yes Tenderness to palpation present (GI) Details: RUQ (To very light palpation) and No Guarding due to palpation present (GI) RECTAL EXAM: Yes deferred OTHER: No abdominal bruising : COMMON NORMALS: Yes no CVA tenderness BLADDER/KIDNEY EXAM: Yes no CVA tenderness Back/Pelvis: COMMON NORMALS: no CVA tenderness Extremity: COMMON NORMALS: normal to inspection and full ROM Neuro: COMMON NORMALS: patient oriented x3, moves all extremities, no focal motor deficits and no sensory deficits noted SENSORIUM/ORIENTATION: Yes alert MENINGEAL SIGNS: Yes no meningeal signs Psych: COMMON NORMALS: mental status grossly normal, cooperative and speech normal SPEECH: Yes normal speech Skin: COMMON NORMALS: no rashes or lesions noted GENERAL SKIN EXAM: no rashes or lesions noted Course Vital Signs: Vital signs: Vital Signs Temperature 98.1 F 11/24/24 15:18 Pulse Rate 84 11/24/24 18:39 Respiratory Rate 18 11/24/24 16:37 Blood Pressure 140/69 11/24/24 18:39 Pulse Oximetry 96 11/24/24 18:39 Oxygen Delivery Me thod Room Air 11/24/24 17:10 MDM - Abdominal Pain Medical Decision Making This patient presents for right upper quadrant pain that he states had developed just after discharge from the hospital earlier this afternoon. Pain focal to the right upper quadrant, on exam he is tender to very light palpation. He has been receiving Lovenox shots in the abdomen as well while in the hospital, and he has IV placed as he is set to undergo infusions of micafungin at the infusion center due to a fungal UTI. He is nontoxic on exam, afebrile and he has not had any nausea or vomiting or diarrhea. States his last normal bowel movement was right when he got home from discharge. He did have a CT performed just prior to discharge, this was reviewed showing no acute findings of significance or that would explain his symptoms. The gallbladder ultrasound, however, reveals that there is a chest wall fluid collection representing a concern for abscess though could also represent neoplasm. Also of note on his abdomen CT there is concern of a lesion to the left kidney and his ultrasound findings could represent a metastatic lesion. I did speak to Dr. Tejeda, hospitalist who is familiar with the patient and took care of in the hospital, who is accepting the patient for readmission as he has had intractable pain despite fentanyl here in the ED. She currently agrees to consult infectious disease as well. Dr. Wynn putting in admit orders at this time. Lab Data 11/24/24 15:31 11/24/24 15:31 Labs/Radiology: Radiology Impressions Gallbladder Ultrasound 11/24/24 15:25 IMPRESSION: 1. Right lower chest wall focal fluid collection which may represent intramuscular abscess although etiologies such as neoplasm is not entirely excluded. 2. Intra-abdominal contents of the right upper quadrant are unremarkable except for some mild hepatomegaly. Laboratory Results WBC 9.47 10^3/uL (3.29-11.43) 11/24/24 15: RBC 2.85 10^6/uL (3.85-5.65) L 11/24/24 15: Hgb 9.20 g/dL (11.27-16.99) L 11/24/24 15: Hct 27.6 % (37-53) L 11/24/24 15: MCV 96.8 fl (82-101) 11/24/24 15: MCH 32.3 pg (27-33) 11/24/24 15: MCHC 33.3 g/dL (30-55) 11/24/24: RDW 13.4 % (12.1-15.1) 11/24/24: Plt Count 332 10^3/cmm (157-399) 11/24/24 15: MPV 9.2 fL (7.4-10.4) 11/24/24 15: Neut % (Auto) 81.3 % 11/24/24: Lymph % (Auto) 10.8 % 11/24/24: Preston % (Auto) 6.8 % 11/24/24: Eos % (Auto) 0.4 % 11/24/24: Baso % (Auto) 0.3 % 11/24/24: Neut # (Auto) 7.70 10^3/uL (1.8-7.7) 11/24/24: Lymph # (Auto) 1.0 10^3/uL (0.8-4.8) 11/24/24: Preston # (Auto) 0.6 10^3/uL (0.2-0.9) 11/24/24: Eos # (Auto) 0.0 10^3/uL (0.0-0.8) 11/24/24: Baso # (Auto) 0.0 10^3/uL (0.0-0.1) 11/24/24 15: Nucleated RBC % (auto) 0 % 11/24/24: Nucleated RBCs # 0.0 /100WBC 11/24/24: Sodium 137 mmol/L (136-145) 11/24/24 15: Potassium 4.0 mmol/L (3.5-5.1) 11/24/24 15:31 Chloride 100 mmol/L (98-107) 11/24/24 15:31 Carbon Dioxide 21 mmol/L (22-29) L 11/24/24 15:31 Anion Gap 20.0 (5-19) H 11/24/24 15:31 BUN 17 mg/dL (8-23) 11/24/24 15:31 Creatinine 1.2 mg/dL (0.7-1.2) 11/24/24 15:31 GFR Calculation Not Reportable 11/24/24 15:31 Glucose 198 mg/dL (65-115) H 11/24/24 15:31 Calculated Osmolality 291 mOsm/kg (285-295) 11/24/24 15:31 Calcium 9.4 mg/dL (8.5-10.5) 11/24/24 15:31 Total Bilirubin 0.4 mg/dL (0.15-1.2) 11/24/24 15:31 AST 47 U/L (0-40) H 11/24/24 15:31 ALT 58 U/L (0-41) H 11/24/24 15:31 Alkaline Phosphatase 50 U/L (40-130) 11/24/24 15:31 Total Protein 6.8 g/dL (6.6-8.7) 11/24/24 15:31 Albumin 4.1 g/dL (3.5-5.2) 11/24/24 15:31 Globulin 2.7 g/dL (1.3-4.6) 11/24/24 15:31 Lipase 18 U/L (13-60) 11/24/24 15:31 All radiology interpretation(s) finalized by discharge Discharge Plan Discharge Patient Disposition: Placed in Observation Admit Provider: Andrés Humphreys Clinical Impression: Abscess of chest wall Coding Level of Care Code ED Milling Planer Operator for Betsy Ziegler
[2024-11-24 15:50] LABS: Hematocrit 27.6 % (37-53); Hemoglobin 9.20 g/dL (11.27-16.99); Mean Corpuscular HGB Conc 33.3 g/dL (30-55); Mean Corpuscular Hemoglobin 32.3 pg (27-33); Mean Corpuscular Volume 96.8 fl (82-101); Nucleated Red Blood Cells % 0 %; Platelet Count 332 10^3/cmm (157-399); Red Blood Count 2.85 10^6/uL (3.85-5.65); White Blood Count 9.47 10^3/uL (3.29-11.43)
[2024-11-24 16:10] LABS: Alanine Aminotransferase 58 U/L (0-41); Albumin Level 4.1 g/dL (3.5-5.2); Alkaline Phosphatase 50 U/L (40-130); Anion Gap 20.0 (5-19); Aspartate Amino Transferase 47 U/L (0-40); Blood Urea Nitrogen 17 mg/dL (8-23); Calcium 9.4 mg/dL (8.5-10.5); Carbon Dioxide 21 mmol/L (22-29); Chloride 100 mmol/L (98-107); Creatinine Clr Calc Pharmacy 49.5312; Globulin 2.7 g/dL (1.3-4.6); Glucose 198 mg/dL (65-115); Lipase 18 U/L (13-60); Osmolality Calculated 291 mOsm/kg (285-295); Potassium 4.0 mmol/L (3.5-5.1); Sodium 137 mmol/L (136-145); Total Protein 6.8 g/dL (6.6-8.7)
[2024-11-24] MEDS: fentaNYL 50 mcg/mL INJ 2mL IVP (16:37)
--- NOTE | 2024-11-24 18:52 | PM.HP ---
Providers/Chief Complaint Admitting Physician: Andrés Humphreys DO Primary Care Provider: Destin Chung MD Chief Complaint: Stomach pain History of Present Illness Thong Salgado Jr is a 84 year old male discharged earlier today after being hospitalized for 6 days for fungemia. Patient is on Mycafungin. Patient has been very difficult over the last few days requesting discharge. His discharge had to be hold since we could not arrange outpatient infusion therapy with just an IV. Patient was insistent on leaving this morning getting dressed and packing up his stuff and would not even allow me to examine him. Later Dr. Nixon around it and he was starting to have abdominal pain she requested ultrasound. He refused to wait for the ultrasound to be completed per vocational rehabilitation technician they would not do it until 7:00 tonight as the patient had to be NPO. Subsequently she ordered a CT of the abdomen however the patient did not wait around for results. Shortly after discharge the patient returns to the ER with severe abdominal pain. This is the same pain that he described Dr. Nixon this morning. Clarification with the patient is that the patient did not receive an injection in that right upper quadrant today. But he correlates the pain that he received with the injection today in the left lower quadrant to this pain. He also does not believe he can be constipated since he has been having few bowel movements last couple days but he does admit to being constipated prior to a few days ago. He describes the pain as severe located over his right lower ribs and into the right upper quadrant. He can point specifically to the worst pain which does correlate with the abnormal findings on ultrasound. It is also interesting to point out that the radiologist reading the ultrasound tonight comments that he could see this fluid collection possible abscess on the CT. Although the radiologist that read the CT did not comment on this abnormality. I discussed the patient's condition with Dr. Nixon. We discussed admission with either ultrasound or CT-guided aspiration of the fluid collection. Patient is agreeable to pursue workup and treatment. He will be admitted to the general medical floor Review of Systems Narrative: No change since discharge except the worsening right upper quadrant right chest wall pain. Medications/Allergies Home Medications ?Medication ?Instructions ?Recorded ?Confirmed ?Last Taken ?Type ascorbic acid (vitamin C) 500 mg 500 mg PO DAILY 02/13/19 11/21/24 11/20/24 History tablet (Vitamin C) ferrous gluconate 324 mg (37.5 mg 324 mg PO DAILY 02/13/19 11/21/24 11/20/24 History iron) tablet glucosamine HCl 1,500 mg tablet 1,500 mg PO DAILY 06/17/19 11/21/24 11/20/24 History sour kumar extract 1,000 mg 1,000 mg PO DAILY 06/16/20 11/21/24 11/20/24 History capsule (Tart Kumar Extract) clopidogrel 75 mg tablet (Plavix) 75 mg PO DAILY #90 tabs 01/18/23 11/21/24 11/20/24 Rx magnesium chloride 64 mg 64 mg PO BID #180 tabs 01/18/23 11/21/24 11/20/24 Rx (magnesium chloride) tablet,delayed release (Mag 64) multivit,Ca,orjr-MU-aoizvbsz-lutn 1 tab PO DAILY 06/21/23 11/21/24 11/20/24 History 18 mg-500 mcg-300 mcg-250 mcg tablet omega-3 fatty acids 1,000 mg 1,000 mg PO BID 06/21/23 11/21/24 11/20/24 History capsule vitamin B complex 1 tab PO DAILY 06/21/23 11/21/24 11/20/24 History potassium citrate 99 mg capsule 99 mg PO BID 08/18/23 11/21/24 11/20/24 History Eliquis 5 mg tablet (apixaban) 5 mg PO BID #180 tabs 01/11/24 11/21/24 11/20/24 Rx metoprolol succinate 25 mg 12.5 mg PO DAILY 02/29/24 11/21/24 11/20/24 History tablet,extended release 24 hr amiodarone 200 mg tablet 200 mg PO DAILY #180 tabs 04/03/24 11/21/24 11/20/24 Rx dapagliflozin propanediol 10 mg 10 mg PO DAILY #90 tabs 06/05/24 11/21/24 11/20/24 Rx tablet (Farxiga) colchicine 0.6 mg tablet 0.6 mg PO DAILY #90 tabs 08/26/24 11/21/24 11/20/24 Rx sulfasalazine 500 mg tablet 1,000 mg (2 x 500 mg) PO BID #360 07/11/21/24 11/20/24 Rx tabs furosemide 40 mg tablet See Rx Instructions .Route .COMPLEX 10/10/24 11/21/24 11/20/24 History rosuvastatin 20 mg tablet 20 mg PO BEDTIME 10/10/24 11/21/24 11/19/24 19:00 History sacubitril 49 mg-valsartan 51 mg 1 tab PO BID 10/10/24 11/21/24 11/20/24 History tablet (Entresto) spironolactone 25 mg tablet 12.5 mg PO QAM 11/06/24 11/21/24 11/20/24 08:00 History levothyroxine 50 mcg tablet 75 mcg (1.5 x 50 mcg) PO QAM #30 11/17/24 11/21/24 11/20/24 Rx tabs micafungin 100 mg intravenous 100 mg IV Q24H 11/24/24 Unknown Rx solution (Mycamine) tamsulosin 0.4 mg capsule 0.4 mg PO DAILY #30 caps 11/24/24 Unknown Rx Allergies Allergy/AdvReac Type Severity Reaction Status Date / Time ciprofloxacin Allergy Unknown unknown Verified 08/26/24 10:52 Penicillins Allergy Unknown unknown Verified 08/26/24 10:52 simvastatin Allergy unknown Verified 08/26/24 10:52 allopurinol AdvReac itching Verified 08/26/24 10:52 lisinopril AdvReac cough Verified 08/26/24 10:52 PFSH Acute PFSH: Medical History ESBL (extended spectrum beta-lactamase) producing bacteria infection History of nonmelanoma skin cancer CVA (cerebral vascular accident) CKD (chronic kidney disease) stage 3, GFR 30-59 ml/min Nonsustained ventricular tachycardia Pulmonary valve regurgitation Hypothyroidism Atrial fibrillation Lumbar stenosis with neurogenic claudication Degenerative disc disease Vertebral artery stenosis Aortic aneurysm Weakness Weakness of both lower extremities Lactic acidosis Fever of unknown origin Acute urinary retention Leg weakness Gout COVID-19 vaccine administered Macular degeneration Seropositive rheumatoid arthritis of multiple sites Immunization counseling High risk medication use Osteoarthritis of knees, bilateral Inflammatory arthritis Gout, arthritis Edema, peripheral Coronary arteriosclerosis after coronary artery bypass grafting CABG x2 (OLSON to LAD and SVG to OM, 05/08/2008) Cardiomyopathy LVEF has decreased from 45% to 35% by echocardiogram. Cataract Cardiac arrhythmia Pacemaker Dual-chamber Mixed hyperlipidemia last lipid panel 2019: Cholesterol 93, triglycerides 78, LDL 55. Thoracic aneurysm without mention of rupture Ascending aortic aneurysm 4.4cm by CT 07/2017 Essential hypertension Surgical History History of surgical removal of ganglion cyst Hx of cataract surgery S/p TAVR (transcatheter aortic valve replacement), bioprosthetic Hx of CABG Hx of appendectomy H/O foot surgery Family History Mother Dementia Other CAD (coronary artery disease) Diabetes Hyperlipidemia Hypertension Stroke Denies family history of Clotting disorder Psychiatric illness Chronic kidney disease (CKD) Suicide Anesthesia complication Bleeding disorder Family history of premature coronary artery disease Lung disease Cancer Social History Smoking and tobacco/nicotine status: never used tobacco/nicotine Alcohol intake: never Substance/Drug Use: never Household members: significant other Housing: House Vitals/I&O/Wt Last Vital Signs Temp 98.1 F 11/24/24 15:18 Pulse 84 11/24/24 18:39 Resp 18 11/24/24 16:37 BP 140/69 11/24/24 18:39 Pulse Ox 96 11/24/24 18:39 O2 Del Method Room Air 11/24/24 17:10 Weight last 48 hrs Weight 81.647 kg Physical Exam Narrative: Alert and oriented. In no distress as he lies without moving however he starts to complain of pain if he moves in any way. HEENT head is normocephalic atraumatic pupils equal round reactive to light and accommodation external motion was intact mucous membranes are moist and pink neck is supple no JVD carotid bruits or lymphadenopathy Chest is symmetrical with respirations Heart is regular normal S1-S2 without murmurs clicks gallops or rubs Lungs clear to auscultation without wheezes rales or rhonchi Abdomen protuberant abdomen unchanged from yesterday. Small areas of ecchymosis consistent with Lovenox injections. Significant thinning alae tender to light palpation over the right lower rib cage into the right upper abdomen. There is more of a fullness although I cannot appreciate fluctuance over the right anterior chest wall. There is no erythema or warmth to touch Extremities no clubbing cyanosis or edema Back he has a moderate kyphosis Urinary Catheter Management: [place]: Cath Placed During This Visit: yes Reason for Continuing Indwelling Catheter: Chronic Indwelling Urinary Catheter on Admission Urinary Catheter Date of Insertion: 11/20/24 Urinary Catheter Time of Insertion: 18:42 Data 11/24/24 15:31 11/24/24 15:31 A&P Assessment and plan 1. Abscess of chest wall: 2. Mass of urinary bladder determined by ultrasound: 3. CKD (chronic kidney disease) stage 3, GFR 30-59 ml/min: 4. Fungemia: 5. Bladder outlet obstruction: 6. Constipation: Plan: Patient will be admitted for CT-guided or ultrasound-guided aspiration of this fluid correction. He will be n.p.o. after midnight. Hold antibiotics until procedure completed. hold anticoagulation. Gram stain and culture ordered for aspirate tomorrow. Continue micafungin 100 mg daily. His last dose was given at 10 AM this morning. Will repeat q. 10 AM. Otherwise continue majority of his prescribed home medications holding many of his vitamins. Aggressive bowel regimen for severe constipation especially while he is getting pain medications. Milk of magnesia now, With MiraLAX twice daily and senna S2 tablets nightly PDMP PDMP Reviewed: Not Reviewed Attestations Medical Necessity Statement*: Patient requires 2 midnight stay for a new diagnosis of intramuscular fluid possible abscess. Coding Level of Care Code Acute Code for Chg Fwd Diagnoses Abscess of chest wall L02.213 Mass of urinary bladder determined by ultrasound N32.89 CKD (chronic kidney disease) stage 3, GFR 30-59 ml/min N18.30 Fungemia B49 Bladder outlet obstruction N32.0 Constipation K59.00
[2024-11-24] MEDS: dextrose 5%-sod chloride 0.9% 1,000 ML 75 ML IV (22:02)
[2024-11-24] MEDS: morphine 4 mg/mL SDV 1 mL IVP (22:03)
[2024-11-24] MEDS: sennosides-docusate Tablet 2 TAB PO (22:03)
[2024-11-25] VITALS: BP 103/65; PULSE 82; RESP 16; TEMP 36.3
[2024-11-25 04:00] VITALS: BP 122/78; PULSE 85; RESP 17; TEMP 36.6; O2SAT 95
[2024-11-25] MEDS: SACUBITRIL/VALSARTAN 49-51 TABLET 1 EACH PO ×2 (05:49→16:35)
[2024-11-25 06:00] VITALS: BMI 26.6
[2024-11-25 08:34] VITALS: BP 106/67; PULSE 81; RESP 17; TEMP 36.8; O2SAT 98
--- NOTE | 2024-11-25 09:43 | PC.CHAP ---
Pastoral Care Encounter/Spiritual Assessment Type of Contact [] Declined sleeping car conductor visit [] Patient/Family/Request visit [] Outpatient visit [] Follow-up visit [] Physician referral [] Code/Alert [x] Routine visit [] Staff referral [] Actively dying [] Patient sleeping [] Family support [] [] Out of room [] Palliative care [] [] Receiving care in room [] Pre-surgical visit [] Trauma [] Long length of stay [] ICU visit [] Other: Relational/Emotional Strength [] Patient feels connected with others/family/visitors/staff [] Distress [] Loneliness/isolation [] Abandonment Spirituality of Patient [x] Person of Mandy [] Attends Jew of their Mandy [x] Believes in Prayer [] Reads Bible or Methodist materials [] There are Spiritual issues to be addressed Curb Builder Interventions [x] Prayer [x] Active listening [] Non-anxious presence [] Spiritual/emotional support [] Crisis/trauma care [] Spiritual counseling [] Bereavement support [] Provided bereavement packet [x] Provided Bible/devotional materials [] Provided toy/stuffed animal, coloring book to patient or family member [] Provided Communion [] Anointing/Klemme [] Salvation [x] Completed spiritual assessment [] Other: Impact on Illness or Injury [] Angry [] Fearful [] Anxious [] Often cries [] Exhaustion [] Unable to work [] Unable to attend taoism [] Unable to walk/stand [] Unable to read [] Unable to drive [] Unable to eat/drink [] Unable to sleep [] Unable to be with family [] Patient intubated [] Other: Summary Time spent with patient 10 min
[2024-11-25] MEDS: micafungin 100 MG in sodium chloride 0.9% (plus) 100 ML IV (11:03)
--- NOTE | 2024-11-25 11:51 | PC.PHAR ---
patient states he took meds before leaving hospital on 11/24/24 and was back in her so he didn't take evening meds.
[2024-11-25 12:28] VITALS: BP 108/67; PULSE 80; RESP 18; TEMP 37; O2SAT 93
[2024-11-25 13:17] LABS: Hematocrit 21.9 % (37-53); Hemoglobin 7.20 g/dL (11.27-16.99); Mean Corpuscular HGB Conc 32.9 g/dL (30-55); Mean Corpuscular Hemoglobin 32.3 pg (27-33); Mean Corpuscular Volume 98.2 fl (82-101); Nucleated Red Blood Cells % 0 %; Platelet Count 324 10^3/cmm (157-399); Red Blood Count 2.23 10^6/uL (3.85-5.65); White Blood Count 10.98 10^3/uL (3.29-11.43)
[2024-11-25 13:31] LABS: INR 1.07 (0.8-1.2); Prothrombin Time 14.70 SECONDS (12.1-14.9)
[2024-11-25 13:33] LABS: Partial Thromboplastin Time 29.6 SECONDS (23.9-36.7)
[2024-11-25 13:35] LABS: Alanine Aminotransferase 56 U/L (0-41); Albumin Level 4.1 g/dL (3.5-5.2); Alkaline Phosphatase 46 U/L (40-130); Anion Gap 18.0 (5-19); Aspartate Amino Transferase 34 U/L (0-40); Blood Urea Nitrogen 17 mg/dL (8-23); Calcium 9.3 mg/dL (8.5-10.5); Carbon Dioxide 23 mmol/L (22-29); Chloride 101 mmol/L (98-107); Creatinine Clr Calc Pharmacy 49.5312; Globulin 2.9 g/dL (1.3-4.6); Glucose 158 mg/dL (65-115); Osmolality Calculated 291 mOsm/kg (285-295); Potassium 4.0 mmol/L (3.5-5.1); Sodium 138 mmol/L (136-145); Total Protein 7.0 g/dL (6.6-8.7)
--- NOTE | 2024-11-25 14:25 | P.PN_ITS ---
Subjective 2 Subjective: 84-year-old male admitted with history of bladder outlet obstruction, chronic atrial fibrillation on Eliquis 5 mg twice a day, thoracic aortic aneurysm comes in with readmission 11/24/2024 after he was insistent on AMA discharge same day. Patient had a history of fungus in the urine and blood on November 15 growing yeast. He was treated with micafungin and yeast is attributable to urinary source. A transthoracic echocardiogram showed no vegetations. Dr. Nixon anticipates the patient will be able to be treated orally so we will hold off on PICC line at this time. Patient was found to have an abdominal mass by CT scan retrospectively seen but primarily discovered on ultrasound of his gallbladder. He was ordered for IR aspiration but Dr. Coles notes that this is hyperdense material looks most likely like a hematoma not yet liquefied. Patient described severe pain in the right upper quadrant. He admits to lightheadedness last 3 days creatinine has run 1.2 the last 3 days was 1.7 on 11/15/2024. She also noted that the hematoma seen on CT scan has doubled in size with subsequent ultrasound done this morning and IR considering possible aspiration Vitals/I&O/Wt Last Vital Signs Temp 98.6 F 11/25/24 12:28 Pulse 80 11/25/24 12:28 Resp 18 11/25/24 12:28 BP 108/67 11/25/24 12:28 Pulse Ox 93 11/25/24 12:28 O2 Del Method Room Air 11/25/24 04:00 11/24/24 11/25/24 11/25/24 22:59 06:59 14:59 Intake Total 360 / 360 20 / 380 100 / 100 Balance 360 / 360 20 / 380 100 / 100 Weight last 48 hrs Weight 81.647 kg Weight 81.647 kg Physical Exam 2 Narrative: General Well-developed male in no acute cardiopulmonary stress CV regular rate and rhythm Lungs clear to auscultation bilaterally Abdomen positive bowel tones soft tender in the right upper quadrant and right lateral abdomen and right upper portion of the lower quadrant. Left side is not tender I do not appreciate erythema or excess heat to the right upper quadrant Calves no tenderness cords Urinary Catheter Management: Rutherford: Cath Placed During This Visit: yes Reason for Continuing Indwelling Catheter: Chronic Indwelling Urinary Catheter on Admission Urinary Catheter Date of Insertion: 11/20/24 Urinary Catheter Time of Insertion: 18:42 Data 11/25/24 13:05 11/25/24 13:05 A&P Assessment and plan 1. Hematoma of chest wall: Stop apixaban for 2 weeks and either decrease the dose or just switch to baby aspirin. This anterior chest wall and nowhere near his aorta which is not aneurysmal 2. Mass of urinary bladder determined by ultrasound: Patient will need to be referred to urology as this looks like a mass possibly tumor but cannot completely exclude fungal infection. 3. CKD (chronic kidney disease) stage 3, GFR 30-59 ml/min: Stable with creatinine at 1.2 4. Fungemia: Fungal etiology Nakaseomyces glabrata 5. Bladder outlet obstruction: difficulty voiding urine, frequent small amounts 6. Constipation: will bowel agents for promoting BM. 7. UTI (urinary tract infection): Fungal Plan: Patient will be admitted for CT-guided or ultrasound-guided aspiration of this fluid correction. He will be n.p.o. after midnight. Hold antibiotics until procedure completed. hold anticoagulation. Gram stain and culture ordered for aspirate tomorrow. Continue micafungin 100 mg daily. His last dose was given at 10 AM this morning. Will repeat q. 10 AM. Otherwise continue majority of his prescribed home medications holding many of his vitamins. Aggressive bowel regimen for severe constipation especially while he is getting pain medications. Milk of magnesia now, With MiraLAX twice daily and senna S2 tablets nightly PDMP PDMP Reviewed: Not Reviewed Attestations 2 Medical Necessity Statement*: Patient rosalee in hospital for monitoring acute blood loss from his hematoma and will require greater than 2 midnights Coding Level of Care Code Acute Code for Chg Fwd Diagnoses Hematoma of chest wall S20.219A Mass of urinary bladder determined by ultrasound N32.89 CKD (chronic kidney disease) stage 3, GFR 30-59 ml/min N18.30 Fungemia B49 Bladder outlet obstruction N32.0 Constipation K59.00 UTI (urinary tract infection) N39.0 Time Spent (min) 45
[2024-11-25] MEDS: polyethylene glycol 3350 Pkt 17 gm PO (16:35)
[2024-11-25 16:48] VITALS: BP 108/71; PULSE 84; RESP 18; TEMP 36.4; O2SAT 92
[2024-11-25 19:26] VITALS: BP 119/67; PULSE 84; RESP 17; TEMP 36.4; O2SAT 94
[2024-11-25] MEDS: sennosides-docusate Tablet 2 TAB PO (20:59)
[2024-11-26] VITALS (17 sets, daily range): BP systolic 93–125; BP diastolic 51–75; PULSE 70–85; RESP 16–20; TEMP 36.4–37.1; O2SAT 93–98
[2024-11-26] MEDS: polyethylene glycol 3350 Pkt 17 gm PO (04:47)
[2024-11-26] MEDS: SACUBITRIL/VALSARTAN 49-51 TABLET 1 EACH PO ×2 (04:50→16:03)
[2024-11-26 07:57] LABS: Mean Corpuscular HGB Conc 32.3 g/dL (30-55); Mean Corpuscular Hemoglobin 32.7 pg (27-33); Mean Corpuscular Volume 101.0 fl (82-101); Nucleated Red Blood Cells % 0 %; Platelet Count 324 10^3/cmm (157-399); Red Blood Count 1.96 10^6/uL (3.85-5.65); White Blood Count 10.16 10^3/uL (3.29-11.43)
[2024-11-26 08:28] LABS: Hematocrit 19.8 % (37-53); Hemoglobin 6.40 g/dL (11.27-16.99)
--- NOTE | 2024-11-26 10:21 | P.PN_ITS ---
Subjective 2 Subjective: 84-year-old male admitted with history of bladder outlet obstruction, chronic atrial fibrillation on Eliquis 5 mg twice a day, thoracic aortic aneurysm comes in with readmission 11/24/2024 after he was insistent on AMA discharge same day. Patient had a history of fungus in the urine and blood on November 15 growing yeast. He was treated with micafungin and yeast is attributable to urinary source. A transthoracic echocardiogram showed no vegetations. Dr. Nixon anticipates the patient will be able to be treated orally so we will hold off on PICC line at this time. Patient was found to have an abdominal mass by CT scan retrospectively seen but primarily discovered on ultrasound of his gallbladder. He was ordered for IR aspiration but Dr. Coles notes that this is hyperdense material looks most likely like a hematoma not yet liquefied. Patient described severe pain in the right upper quadrant. He admits to lightheadedness last 3 days creatinine has run 1.2 the last 3 days was 1.7 on 11/15/2024. Hematocrit dropped is 19.8 from 21.9 overnight. Patient admits to some dyspnea and lightheadedness. I discussed risks and benefits of transfusion with him and he is agreeable. Patient plans that he did not get any food beyond 1 plate yesterday. Looks like he is still on n.p.o. diet that I failed to cancel after canceling his CT scan Vitals/I&O/Wt Last Vital Signs Temp 97.8 F 11/26/24 07:45 Pulse 85 11/26/24 07:45 Resp 18 11/26/24 07:45 BP 103/66 11/26/24 07:45 Pulse Ox 96 11/26/24 07:45 O2 Del Method Room Air 11/26/24 07:45 11/25/24 11/26/24 11/26/24 22:59 06:59 14:59 Intake Total 1240 / 1340 Output Total 350 / 350 Balance 890 / 990 Weight last 48 hrs Weight 82.1 kg Weight 81.647 kg Weight 81.647 kg Physical Exam 2 Narrative: General Well-developed male in no acute cardiopulmonary stress CV regular rate and rhythm Lungs trace basilar crackles Abdomen positive bowel tones soft tender in the right upper quadrant and right lateral abdomen and right upper portion of the lower quadrant. Left side is not tender I do not appreciate erythema or excess heat to the right upper quadrant Calves no tenderness cords Urinary Catheter Management: Rutherford: Cath Placed During This Visit: yes Reason for Continuing Indwelling Catheter: Chronic Indwelling Urinary Catheter on Admission Urinary Catheter Date of Insertion: 11/20/24 Urinary Catheter Time of Insertion: 18:42 Data 11/26/24 07:50 11/25/24 13:05 A&P Assessment and plan 1. Hematoma of chest wall: Stop apixaban for 2 weeks and either decrease the dose or just switch to baby aspirin. This anterior chest wall and nowhere near his aorta which is not aneurysmal. Transfused 2 units packed red cells with 10 mg furosemide IV in between units. Start incentive spirometry 2. Mass of urinary bladder determined by ultrasound: Patient will need to be referred to urology as this looks like a mass possibly tumor but cannot completely exclude fungal infection. 3. CKD (chronic kidney disease) stage 3, GFR 30-59 ml/min: Stable with creatinine at 1.2 4. Fungemia: Fungal etiology Nakaseomyces glabrata. Continue micafungin until determined whether he can be switched over to oral fluconazole 5. Bladder outlet obstruction: difficulty voiding urine, frequent small amounts. Check postvoid residual 6. Constipation: Continue bowel agents for promoting BM. 7. UTI (urinary tract infection): Fungal Plan: . Continue micafungin 100 mg daily. His last dose was given at 10 AM this morning. Will repeat q. 10 AM. Otherwise continue majority of his prescribed home medications holding many of his vitamins. Aggressive bowel regimen for severe constipation especially while he is getting pain medications. Milk of magnesia now, With MiraLAX twice daily and senna S2 tablets nightly to as needed PDMP PDMP Reviewed: Not Reviewed Attestations 2 Medical Necessity Statement*: Patient remains in the hospital overnight for 2 units packed red cells, therapy postvoid residual bladder scan anticipate discharge home tomorrow Coding Level of Care Code 47432 Diagnoses Hematoma of chest wall S20.219A Mass of urinary bladder determined by ultrasound N32.89 CKD (chronic kidney disease) stage 3, GFR 30-59 ml/min N18.30 Fungemia B49 Bladder outlet obstruction N32.0 Constipation K59.00 UTI (urinary tract infection) N39.0 Time Spent (min) 35
[2024-11-26] MEDS: FUROsemide 10 mg/mL SDV 2mL IVP (15:56)
--- NOTE | 2024-11-26 18:17 | PC.SOCIAL ---
*IMM * Patient received copy of IMM, Copy is initialled, dated and placed in chart.
[2024-11-26] MEDS: sennosides-docusate Tablet 2 TAB PO (20:51)
[2024-11-26] MEDS: morphine 4 mg/mL SDV 1 mL IVP (20:56)
[2024-11-26 21:15] LABS: Hematocrit 25.6 % (37-53); Hemoglobin 8.60 g/dL (11.27-16.99)
[2024-11-27] VITALS: BP 109/65; PULSE 81; RESP 16; TEMP 36.4; O2SAT 92
[2024-11-27 04:00] VITALS: BP 118/74; PULSE 80; RESP 16; TEMP 36.4; O2SAT 97
[2024-11-27] MEDS: SACUBITRIL/VALSARTAN 49-51 TABLET 1 EACH PO (04:58)
[2024-11-27] MEDS: polyethylene glycol 3350 Pkt 17 gm PO (04:58)
[2024-11-27 05:28] LABS: Hematocrit 27.0 % (37-53); Hemoglobin 8.90 g/dL (11.27-16.99); Mean Corpuscular HGB Conc 33.0 g/dL (30-55); Mean Corpuscular Hemoglobin 30.9 pg (27-33); Mean Corpuscular Volume 93.8 fl (82-101); Nucleated Red Blood Cells % 0.2 %; Platelet Count 334 10^3/cmm (157-399); Red Blood Count 2.88 10^6/uL (3.85-5.65); White Blood Count 8.25 10^3/uL (3.29-11.43)
[2024-11-27 05:48] LABS: Anion Gap 18.0 (5-19); Blood Urea Nitrogen 20 mg/dL (8-23); Calcium 9.4 mg/dL (8.5-10.5); Carbon Dioxide 23 mmol/L (22-29); Chloride 103 mmol/L (98-107); Creatinine Clr Calc Pharmacy 50.8036; Glucose 145 mg/dL (65-115); Osmolality Calculated 295 mOsm/kg (285-295); Potassium 4.0 mmol/L (3.5-5.1); Sodium 140 mmol/L (136-145)
[2024-11-27 07:24] VITALS: BP 118/68; PULSE 74; RESP 16; TEMP 37.3; O2SAT 95
--- NOTE | 2024-11-27 10:47 | PM.DCS ---
Discharge Providers Date of Admission: 11/24/24 18:28 Date of Discharge: November 27, 2024 Attending Provider at Admission: Andrés Humphreys DO Attending Provider at Discharge: Hilario Hawk MD Consults: None Primary Care Provider: Destin Chung MD Diagnoses at Discharge Discharge Diagnosis 1. Hematoma of chest wall: Details from hospital stay: This was initially thought to potentially represent an abscess but from the CT scan finding this fluid collection and the ultrasound done at the time of intended aspiration it was apparent that this hyperdense fluid was an expanding hematoma. Additionally patient's hematocrit dropped. Patient's Eliquis was held during this admission and not restarted. Not given aspirin either. The patient has paroxysmal atrial fibrillation for which she is anticoagulated chronically. Patient's blood count dropped to 21.9 and he was given 2 units packed red cells rising to 25.6 and then further calin on his own to 27 overnight and is ready for discharge We discussed the risk and benefits of anticoagulation which is held at this time while he heals and needs to be further considered before restarting 2. Mass of urinary bladder determined by ultrasound: Details from hospital stay: Patient needs to follow-up with urology for his bladder mass 3. CKD (chronic kidney disease) stage 3, GFR 30-59 ml/min: Details from hospital stay: Stable creatinine 1.1 4. Fungemia: Details from hospital stay: Continue micafungin via peripheral IV pending sensitivities to consider switch to fluconazole. Follow-up with Dr. Nixon 5. Bladder outlet obstruction: Details from hospital stay: Rutherford has been removed follow-up with urology 6. Constipation: Details from hospital stay: Increase bowel agents have been given and patient had a bowel movement but will need to continue at home 7. UTI (urinary tract infection): Details from hospital stay: Treatment as directed by Dr. Nixon includes micafungin and awaiting sensitivities on fungus to see if it can be treated with fluconazole. In the meantime we will treat via peripheral IV Reason for Visit Reason for Visit: Stomach pain Brief History: Thong Salgado Jr is a 84 year old male discharged earlier today after being hospitalized for 6 days for fungemia. Patient is on Mycafungin. Patient has been very difficult over the last few days requesting discharge. His discharge had to be hold since we could not arrange outpatient infusion therapy with just an IV. Patient was insistent on leaving this morning getting dressed and packing up his stuff and would not even allow me to examine him. Later Dr. Nixon around it and he was starting to have abdominal pain she requested ultrasound. He refused to wait for the ultrasound to be completed per emergency medical technician basic they would not do it until 7:00 tonight as the patient had to be NPO. Subsequently she ordered a CT of the abdomen however the patient did not wait around for results. Shortly after discharge the patient returns to the ER with severe abdominal pain. This is the same pain that he described Dr. Nixon this morning. Clarification with the patient is that the patient did not receive an injection in that right upper quadrant today. But he correlates the pain that he received with the injection today in the left lower quadrant to this pain. He also does not believe he can be constipated since he has been having few bowel movements last couple days but he does admit to being constipated prior to a few days ago. He describes the pain as severe located over his right lower ribs and into the right upper quadrant. He can point specifically to the worst pain which does correlate with the abnormal findings on ultrasound. It is also interesting to point out that the radiologist reading the ultrasound tonight comments that he could see this fluid collection possible abscess on the CT. Although the radiologist that read the CT did not comment on this abnormality. I discussed the patient's condition with Dr. Nixon. We discussed admission with either ultrasound or CT-guided aspiration of the fluid collection. Patient is agreeable to pursue workup and treatment. He will be admitted to the general medical floor Hospital Course Hospital Course Patient was found to have a large right lower chest upper abdominal wall hematoma evaluated initially by CT scan and considered possibly an abscess but with further imaging was hyperdense and consistent with hematoma. Hematocrit dropped to 21.9 and he was given 2 units. Blood count calin to 25 and then to 27 by the next day on his own. He is reabsorbing the hematoma. Pain is decreasing. Patient has been able to void without a Rutherford and knows that he has a bladder mass that he will need to follow-up with Dr. Chambers in [place]. Patient has urine fungus sensitivities pending and in the meantime we will be treated with micafungin until sensitivities show whether or not he can be treated with fluconazole. If micafungin is required then he will need a PICC line. Physical Exam Narrative: General Well-developed male in no acute cardiopulmonary stress CV regular rate and rhythm Lungs trace basilar crackles Abdomen positive bowel tones soft tender in the right upper quadrant and right lateral abdomen and right upper portion of the lower quadrant. Marked bruising along the right flank see images Left side is not tender I do not appreciate erythema or excess heat to the right upper quadrant Calves no tenderness cords Back/Pelvis: OTHER: Urinary Catheter Management: Rutherford: Cath Placed During This Visit: yes Reason for Continuing Indwelling Catheter: Chronic Indwelling Urinary Catheter on Admission Urinary Catheter Date of Insertion: 11/20/24 Urinary Catheter Time of Insertion: 18:42 Discharge Data Studies Completed and Pending Completed Studies During Hospitalization Category Date Time Status US gall bladder 05372 Stat Ultrasound 11/24/24 15:25 Completed Pending at discharge Category Date Time Status Body Fluid Culture & GS Routine Lab 11/24/24 21:26 Uncollected Radiology Impressions Gallbladder Ultrasound 11/24/24 15:25 IMPRESSION: 1. Right lower chest wall focal fluid collection which may represent intramuscular abscess although etiologies such as neoplasm is not entirely excluded. 2. Intra-abdominal contents of the right upper quadrant are unremarkable except for some mild hepatomegaly. Laboratory Results WBC 8.25 10^3/uL (3.29-11.43) 11/27/24 04:35 RBC 2.88 10^6/uL (3.85-5.65) L 11/27/24 04:35 Hgb 8.90 g/dL (11.27-16.99) L 11/27/24 04:35 Hct 27.0 % (37-53) L 11/27/24 04:35 MCV 93.8 fl (82-101) D 11/27/24 04:35 MCH 30.9 pg (27-33) 11/27/24 04:35 MCHC 33.0 g/dL (30-55) 11/27/24 04:35 RDW 16.2 % (12.1-15.1) H 11/27/24 04:35 Plt Count 334 10^3/cmm (157-399) 11/27/24 04:35 MPV 9.4 fL (7.4-10.4) 11/27/24 04:35 Neut % (Auto) 73.7 % 11/27/24 04:35 Lymph % (Auto) 14.7 % 11/27/24 04:35 [place] % (Auto) 9.6 % 11/27/24 04:35 Eos % (Auto) 1.1 % 11/27/24 04:35 Baso % (Auto) 0.4 % 11/27/24 04:35 Neut # (Auto) 6.09 10^3/uL (1.8-7.7) 11/27/24 04:35 Lymph # (Auto) 1.2 10^3/uL (0.8-4.8) 11/27/24 04:35 [place] # (Auto) 0.8 10^3/uL (0.2-0.9) 11/27/24 04:35 Eos # (Auto) 0.1 10^3/uL (0.0-0.8) 11/27/24 04:35 Baso # (Auto) 0.0 10^3/uL (0.0-0.1) 11/27/24 04:35 Nucleated RBC % (auto) 0.2 % 11/27/24 04:35 Nucleated RBCs # 0.0 /100WBC 11/27/24 04:35 PT 14.70 SECONDS (12.1-14.9) 11/25/24 13:05 INR 1.07 (0.8-1.2) 11/25/24 13:05 APTT 29.6 SECONDS (23.9-36.7) 11/25/24 13:05 D-Dimer <= 0.27 ug/mLFEU (0-0.59) 11/25/24 13:05 Sodium 140 mmol/L (136-145) 11/27/24 04:35 Potassium 4.0 mmol/L (3.5-5.1) 11/27/24 04:35 Chloride 103 mmol/L (98-107) 11/27/24 04:35 Carbon Dioxide 23 mmol/L (22-29) 11/27/24 04:35 Anion Gap 18.0 (5-19) 11/27/24 04:35 BUN 20 mg/dL (8-23) 11/27/24 04:35 Creatinine 1.3 mg/dL (0.7-1.2) H 11/27/24 04:35 GFR Calculation Not Reportable 11/27/24 04:35 Glucose 145 mg/dL (65-115) H 11/27/24 04:35 Calculated Osmolality 295 mOsm/kg (285-295) 11/27/24 04:35 Calcium 9.4 mg/dL (8.5-10.5) 11/27/24 04:35 Total Bilirubin 0.4 mg/dL (0.15-1.2) 11/25/24 13:05 AST 34 U/L (0-40) 11/25/24 13:05 ALT 56 U/L (0-41) H 11/25/24 13:05 Alkaline Phosphatase 46 U/L (40-130) 11/25/24 13:05 Total Protein 7.0 g/dL (6.6-8.7) 11/25/24 13:05 Albumin 4.1 g/dL (3.5-5.2) 11/25/24 13:05 Globulin 2.9 g/dL (1.3-4.6) 11/25/24 13:05 Lipase 18 U/L (13-60) 11/24/24 15:31 Blood Type A Positive 11/26/24 10:33 Rho(D) Type Rh positive 11/26/24 10:33 Antibody Screen Negative 11/26/24 10:33 Crossmatch See Detail 11/26/24 10:33 Vitals Last Vital Signs Temp 99.2 F 11/27/24 07:24 Pulse 74 11/27/24 07:24 Resp 16 11/27/24 07:24 BP 118/68 11/27/24 07:24 Pulse Ox 95 11/27/24 07:24 O2 Del Method Room Air 11/27/24 07:24 Discharge Plan Discharge Patient Disposition: Home Condition: Stable Prescriptions: New polyethylene glycol 3350 17 gram Powder In Packet 17 g PO BID Qty: 60 0RF docusate sodium [Col-Rite] 250 mg capsule 250 mg PO BID Qty: 120 0RF Rx Instructions: hold if loose stools Continued Tart Kumar Extract 1,000 mg capsule 1,000 mg PO DAILY glucosamine HCl 1,500 mg tablet 1,500 mg PO DAILY ferrous gluconate 324 mg (37.5 mg iron) tablet 324 mg PO DAILY amiodarone 200 mg tablet 200 mg PO DAILY Qty: 180 3RF colchicine 0.6 mg tablet 0.6 mg PO DAILY Qty: 90 1RF sulfasalazine 500 mg tablet 1,000 mg PO BID Qty: 360 1RF metoprolol succinate 25 mg tablet extended release 24 hr 12.5 mg PO DAILY clopidogrel [Plavix] 75 mg tablet 75 mg PO DAILY Qty: 90 3RF Mag 64 64 mg tablet,delayed release (DR/EC) 64 mg PO BID Qty: 180 3RF dapagliflozin propanediol [Farxiga] 10 mg tablet 10 mg PO DAILY Qty: 90 3RF spironolactone 25 mg tablet 12.5 mg PO QAM ascorbic acid (vitamin C) [Vitamin C] 500 mg Tablet 500 mg PO DAILY omega-3 fatty acids 1,000 mg Capsule 1,000 mg PO BID vitamin B complex Tablet 1 tab PO DAILY multivit,Ca,cgzh-KP-tesyxk-lut [id number] ga-phk-[id number]-mcg Tablet 1 tab PO DAILY potassium citrate 99 mg Capsule 99 mg PO BID furosemide 40 mg tablet See Rx Instructions .ROUTE .COMPLEX Rx Instructions: TAKE 1 TABLET BY MOUTH EVERY MORNING and ONE TABLET SIX hours LATER. sacubitril-valsartan [Entresto] 49-51 mg tablet 1 tab PO BID rosuvastatin 20 mg tablet 20 mg PO BEDTIME levothyroxine 50 mcg tablet 75 mcg PO QAM Qty: 30 0RF tamsulosin 0.4 mg Capsule 0.4 mg PO DAILY Qty: 30 0RF micafungin [Mycamine] 100 mg recon soln 100 mg IV Q24H Rx Instructions: administer over 60 mins Discontinued Eliquis 5 mg tablet 5 mg PO BID Qty: 180 3RF Discharge Order = DC NOW: Discharge Order (Routine); Ordered 11/27/24 Ordered By: Hilario Hawk Referrals: Solo Chambers [Referring, Urology] - 2 weeks Monik Nixon MD [Hospitalist, Hospitalist] - 2 weeks Destin Chung MD [Primary Care Provider, Family Practice] - 7-10 days Discharge Diet: Cardiac Discharge Activity: Increase activity as tolerated and Use walker/crutches as instructed Patient Instructions: Hematoma (ED), Opioid Safety, Patient Portal & Tip Instructions Activity Restrictions/Additional Instructions: Stop Eliquis due to bleeding with the big hematoma. The blood should eventually resorb. Given that you did not suffer a specific injury you may be at risk of additional bleeding if Eliquis is restarted. If it is not restarted and you are at risk of stroke with the atrial fibrillation but the risks and benefits need to be considered with your regular doctor and your shipping order clerk. For now I have stopped both those medications. Additionally avoid aspirin for now until the hematoma resorbs. I recommend that you take a limited calorie diet 1600 belkis so that you can lose weight and therefore be more mobile and safe on your feet. Obesity is a barrier to good health long-term. Discharge Attestations Time Spent in Discharge Care*: greater than 30 min Time Spent in Smoking Cessation: Patient is not a smoker Status at Discharge: Cognitive status at discharge: cognitively intact, Behavioral status at discharge: cooperative, Quality Metrics Clinical Quality Measures [ No reported AMI, CVA or VTE this stay] Coding Level of Care Code 85547 Diagnoses Hematoma of chest wall S20.219A Mass of urinary bladder determined by ultrasound N32.89 CKD (chronic kidney disease) stage 3, GFR 30-59 ml/min N18.30 Fungemia B49 Bladder outlet obstruction N32.0 Constipation K59.00 UTI (urinary tract infection) N39.0 Time Spent (min) 45
[2024-11-27 11:22] VITALS: BP 110/64; PULSE 81; RESP 16; TEMP 37.6; O2SAT 94
[2024-11-27 12:47] VITALS: BP 110/64; PULSE 81; O2SAT 94
--- NOTE | 2024-11-29 09:19 | P.MISC_ITS ---
Assessment & Plan Assessment & Plan 1. 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 Recent readmission for chest wall hematoma noted. In this setting, will be safest to continue micafungin treatment over the next 3 weeks for treatment of candidemia. Picc line to be arranged with micafungin daily infusion to continue at the infusion center. Status: Acute 2. Hematoma of chest wall: Code(s): S20.219A - Contusion of unspecified front wall of thorax, initial encounter Category: Medical Status: Acute 3. Mass of urinary bladder determined by ultrasound: Code(s): N32.89 - Other specified disorders of bladder Category: Medical Status: Inactive 4. Bladder outlet obstruction: Code(s): N32.0 - Bladder-neck obstruction Category: Medical Status: Inactive 5. UTI (urinary tract infection): Code(s): N39.0 - Urinary tract infection, site not specified Category: Medical Status: Acute 6. [place] UTI: Code(s): B37.49 - Other urogenital candidiasis Category: Medical Status: Inactive Medications: New polyethylene glycol 3350 17 grams PO BID 60 ea 0RF docusate sodium (Col-Rite) hold if loose stools 250 mg PO BID 120 caps 0RF Discontinued Eliquis Discontinued Reason: Doctor's Order 5 mg PO BID 180 tabs 3RF NS Assessment & Plan Diagnosis 1. Hematoma of chest wall: 2. Mass of urinary bladder determined by ultrasound: 3. Fungemia: 4. Bladder outlet obstruction: 5. UTI (urinary tract infection): 6. Keiry UTI:
== END 2024-11-27 12:48 | disposition home or self-care (01) | DRG 556 ==
LOC: ER 18:30 → ER IP 18:33 → MEDSURG 20:29
PROVIDERS: Admitting Provider Internal Medicine; Emergency Provider Physician Assistant; PCP Family Medicine; Visit Provider Internal Medicine
DX: M79.81 Nontraumatic hematoma of soft tissue (principal); B49 Unspecified mycosis; B37.49 Other urogenital candidiasis; I42.9 Cardiomyopathy, unspecified; N32.9 Bladder disorder, unspecified; N32.0 Bladder-neck obstruction; I48.0 Paroxysmal atrial fibrillation; I12.9 Hypertensive chronic kidney disease with stage 1 through stage 4 chronic kidney disease, or unspecified chronic kidney disease; N18.30 Chronic kidney disease, stage 3 unspecified; K59.00 Constipation, unspecified; E03.9 Hypothyroidism, unspecified; I71.60 Thoracoabdominal aortic aneurysm, without rupture, unspecified; M10.9 Gout, unspecified; Z79.01 Long term (current) use of anticoagulants; Z95.3 Presence of xenogenic heart valve; Z87.440 Personal history of urinary (tract) infections; Z95.0 Presence of cardiac pacemaker; Z85.828 Personal history of other malignant neoplasm of skin; Z86.73 Personal history of transient ischemic attack (TIA), and cerebral infarction without residual deficits
CPT/HCPCS: 36415; 36430; 76705; 80048; 80053; 83690; 85014; 85018; 85025; 85378; 85610; 85730; 86850; 86900; 86920; 96374; 99285; J1938; J2248; J2270; J3010; J7042; J9999; P9016

== ENCOUNTER → 2024-12-02 08:46 | Day surgery (SDC) | payer MEDICARE, SELFPAY ==
[2024-12-02 08:50] VITALS: BP 93/62; PULSE 80; RESP 16; TEMP 36.3; O2SAT 96
[2024-12-02] MEDS: micafungin 100 MG in sodium chloride 0.9% (plus) 100 ML IV (10:00)
--- NOTE | 2024-12-02 10:21 | PICC.NOTE ---
Midline placed to left basilic vein. Referred to vascular access nurse for midline placement due to need for IV antifungal x 3 weeks. Risks and benefits discussed and informed consent obtained from pt. Pt right handed. Left arm assessed with left basilic vein measuring 4.5 mm, straight, and apparent best choice for placement. Using sterile technique and MST, left basilic vein accessed x 1 stick. Mid-arm circumference measured 10 cm from left AC 33 cm. Trimmed cath 10 cm with 0 cm external length noted. Line secured with stat-lock. Insertion site covered with Biopatch and TSM. Report faxed to [facility]. Pt given extensive home care infusion instructions. Pt to return tomorrow to this vascular access nurse for dressing change and lab draw and to assess if home infusion with friend assist is working. Follow up instructions for weekly dressing change and lab draws at [facility] given with appointment dates provided.
== END ==
PROVIDERS: PCP Family Medicine; Visit Provider Student in an Organized Health Care Education/Training Program
DX: B37.49 Other urogenital candidiasis (principal)
CPT/HCPCS: 36569; 96365; C1751; J2248

== ENCOUNTER 2024-12-03 09:00 | Oncology outpatient (recurring) (ONCR) | payer MEDICARE, SELFPAY ==
[2024-11-28] MEDS: micafungin 100 MG in sodium chloride 0.9% (plus) 100 ML IV (11:18)
[2024-11-29] MEDS: micafungin 100 MG in sodium chloride 0.9% (plus) 100 ML IV (11:01)
[2024-11-29 11:59] VITALS: BP 126/78; PULSE 74; RESP 17; TEMP 36.3; O2SAT 94
[2024-11-30] MEDS: micafungin 100 MG in sodium chloride 0.9% (plus) 100 ML IV (10:56)
[2024-11-30 11:13] VITALS: BP 114/68; PULSE 84; RESP 17; TEMP 36.6; O2SAT 99
[2024-12-01] MEDS: micafungin 100 MG in sodium chloride 0.9% (plus) 100 ML IV (10:51)
[2024-12-01 11:20] VITALS: BP 124/73; PULSE 82; RESP 18; TEMP 36.2; O2SAT 99
[2024-12-03 09:00] VITALS: BP 115/67; PULSE 84; RESP 18; TEMP 36.3; O2SAT 97
--- NOTE | 2024-12-03 09:56 | PC.NURSE ---
Pt to GI lab for midline dressing change and lab draw. Unable to draw blood from midline. Peripheral lab draw performed. Midline flushed without difficulty. Midline dressing changed using sterile technique. Pt neighbor and friend educated on how to administer medication via Elastomeric device from [facility]. Return demonstration on how to flush midline and connect device performed. Pt to follow up Dec.11 at 11:45 at [facility] for weekly dressing change and lab draw. Pt and neighbor verbalized understanding.
[2024-12-03 10:12] LABS: Hematocrit 28.4 % (37-53); Hemoglobin 9.00 g/dL (11.27-16.99); Mean Corpuscular HGB Conc 31.7 g/dL (30-55); Mean Corpuscular Hemoglobin 31.5 pg (27-33); Mean Corpuscular Volume 99.3 fl (82-101); Nucleated Red Blood Cells % 0 %; Platelet Count 396 10^3/cmm (157-399); Red Blood Count 2.86 10^6/uL (3.85-5.65); White Blood Count 5.19 10^3/uL (3.29-11.43)
[2024-12-03 10:32] LABS: Alanine Aminotransferase 24 U/L (0-41); Albumin Level 4.0 g/dL (3.5-5.2); Alkaline Phosphatase 62 U/L (40-130); Aspartate Amino Transferase 21 U/L (0-40); Globulin 3.2 g/dL (1.3-4.6); Total Protein 7.2 g/dL (6.6-8.7)
== END 2024-12-06 23:59 | disposition home or self-care (01) ==
LOC: GILAB 10:36 → ONCMED 11:05
PROVIDERS: PCP Family Medicine; Visit Provider Student in an Organized Health Care Education/Training Program
DX: N39.0 Urinary tract infection, site not specified (principal)
CPT/HCPCS: 36415; 80076; 82565; 85025; 96365; J2248

== ENCOUNTER 2024-12-23 14:15 | Oncology outpatient (recurring) (ONCR) | payer MEDICARE, SELFPAY ==
[2024-12-11 12:21] LABS: Hematocrit 34.1 % (37-53); Hemoglobin 11.10 g/dL (11.27-16.99); Mean Corpuscular HGB Conc 32.6 g/dL (30-55); Mean Corpuscular Hemoglobin 32.0 pg (27-33); Mean Corpuscular Volume 98.3 fl (82-101); Nucleated Red Blood Cells % 0 %; Platelet Count 303 10^3/cmm (157-399); Red Blood Count 3.47 10^6/uL (3.85-5.65); White Blood Count 5.39 10^3/uL (3.29-11.43)
[2024-12-11 12:39] LABS: Alanine Aminotransferase 13 U/L (0-41); Albumin Level 4.5 g/dL (3.5-5.2); Alkaline Phosphatase 62 U/L (40-130); Aspartate Amino Transferase 26 U/L (0-40); Globulin 3.2 g/dL (1.3-4.6); Total Protein 7.7 g/dL (6.6-8.7)
[2024-12-20 10:18] LABS: Hematocrit 36.4 % (37-53); Hemoglobin 11.80 g/dL (11.27-16.99); Mean Corpuscular HGB Conc 32.4 g/dL (30-55); Mean Corpuscular Hemoglobin 31.8 pg (27-33); Mean Corpuscular Volume 98.1 fl (82-101); Nucleated Red Blood Cells % 0 %; Platelet Count 299 10^3/cmm (157-399); Red Blood Count 3.71 10^6/uL (3.85-5.65); White Blood Count 4.89 10^3/uL (3.29-11.43)
[2024-12-20 10:44] LABS: Alanine Aminotransferase 14 U/L (0-41); Albumin Level 4.4 g/dL (3.5-5.2); Alkaline Phosphatase 64 U/L (40-130); Aspartate Amino Transferase 21 U/L (0-40); Globulin 3.8 g/dL (1.3-4.6); Total Protein 8.2 g/dL (6.6-8.7)
== END 2025-01-05 23:59 | disposition home or self-care (01) ==
PROVIDERS: PCP Family Medicine; Visit Provider Student in an Organized Health Care Education/Training Program
DX: Z53.9 Procedure and treatment not carried out, unspecified reason (principal)
CPT/HCPCS: 36592; 80076; 82565; 85025

== ENCOUNTER → 2024-12-31 10:09 | Outpatient (BNVA) | payer MEDICARE, SELFPAY | PROVIDERS: PCP Family Medicine; Visit Provider Student in an Organized Health Care Education/Training Program | DX: B49 Unspecified mycosis (principal); N39.0 Urinary tract infection, site not specified; Z79.899 Other long term (current) drug therapy | CPT/HCPCS: 81001; 99204 ==

== ENCOUNTER → 2025-01-08 10:50 | Outpatient (BNVA) | payer MEDICARE, SELFPAY | PROVIDERS: PCP Family Medicine; Visit Provider Internal Medicine | DX: Z45.018 Encounter for adjustment and management of other part of cardiac pacemaker (principal) | CPT/HCPCS: 93296 ==